=== PATIENT | male | born 1940 | race Caucasian/White ===

== ENCOUNTER 2018-02-13 14:34 | Inpatient (IN) | payer MEDICARE ==
[~2018-02-13 14:34] MED LIST: ISOVUE-370 76%-LOCM 1 ML ONE
[2018-02-13 15:21] LABS: #Lymphocytes 0.9 thou/uL (1.20-3.40); #Monocytes 0.4 thou/uL (0.11-0.59); #Neutrophils 4.2 thou/uL (1.40-6.50); %Basophils 0.2 % (0.0-1.0); %Eosinophils 0.4 % (0.0-10.0); %Lymphocytes 16.7 % (21.0-51.0); %Monocytes 7.4 % (0.0-10.0); %Neutrophils 75.4 % (42.0-75.0); Hemoglobin 14.3 g/dL (14.0-18.0); Mean Corpuscular HGB CONC 31.8 g/dL (32.0-36.0); Mean Corpuscular Hemoglobin 31.8 pg (27.0-31.0); Mean Platelet Volume 8.7 fL (7.4-10.4); Platelet Count 175 thou/uL (130-400); RBC Distribution Width 12.9 % (11.5-14.5); Red Blood Cell (RBC) Count 4.49 mill/uL (4.70-6.10); White Blood Cell (WBC) Count 5.6 thou/uL (4.8-10.8)
--- NOTE | 2018-02-13 15:27 | RAD ---
CHEST 1 VIEW: Date: 02/13/18 HISTORY: Dyspnea. COMPARISON: 03/28/17. FINDINGS: Cardiac silhouette is magnified and enlarged. Pulmonary vasculature is upper limits of normal. Severe right de la garza convex curvature of the thoracic spine is similar in appearance to prior exams. No lobar consolidation or evidence of pneumothorax. IMPRESSION: Cardiomegaly. Chronic-type findings are stable. POS: [facility]
[2018-02-13 15:33] LABS: Actual Bicarbonate (HCO3a) 29.1 mEq/L (22-28); Analyzer IN Cardio ER; CO2 Tension 45.3 mmHg (35.0-45.0); Calcium, Ionized 1.19 mmol/L (1.12-1.30); Carboxyhemoglobin (COHb) 0.8 gm% (0.0-3.0); Hemoglobin (Hb) 14.7 g/dL (14.0-18.0); Potassium - ABG Lab 4.35 mmol/L (3.70-5.30); pH, Arterial 7.43 (7.35-7.45)
[2018-02-13 15:34] LABS: O2 Tension (PaO2) 50.8 mmHg (> 70.0)
[2018-02-13 15:35] LABS: Puncture Site RB
[2018-02-13 15:42] LABS: ALT (SGPT) 30 U/L (8-55); AST (SGOT) 36 U/L (5-34); Albumin 3.9 g/dL (3.4-4.8); Alkaline Phosphatase 61 U/L (40-150); Anion Gap 9 mmol/L (10-20); BUN (Urea Nitrogen) 16 mg/dL (8.4-25.7); Bilirubin, Total 0.6 mg/dL (0.2-1.2); Calc. Creatinine Clearance 0 mL/min (70-130); Calcium 9.4 mg/dL (7.8-10.44); Carbon Dioxide 32 mmol/L (23-31); Chloride 102 mmol/L (98-107); Estimated GFR-MDRD Greater than 90; Glucose 115 mg/dL (83-110); Potassium 4.4 mmol/L (3.5-5.1); Protein, Total 5.9 g/dL (5.8-8.1); Sodium 139 mmol/L (136-145)
[2018-02-13 17:00] LABS: Troponin I 0.028 ng/mL (< 0.028)
[2018-02-13 17:05] LABS: CKMB 10.1 ng/mL (0-6.6)
--- NOTE | 2018-02-13 17:13 | CT ---
CTA CHEST: 02/13/2018 HISTORY: Hypoxia. COMPARISON: 02/12/2017 TECHNIQUE: A contrast enhanced CTA chest was performed. FINDINGS: Contrast enhanced CTA chest demonstrates areas of bibasilar atelectasis and some areas of scarring, u nchanged since the previous comparison CTA. There is marked dextroscoliosis seen. No evidence of pl eural or pericardial effusion seen. Marked cardiomegaly is seen. No evidence of filling defects see n in the pulmonary arteries, to suggest pulmonary emboli. Numerous gallstones seen. An exophytic le ft renal cyst is seen. IMPRESSION: 1. Marked cardiomegaly. 2. No evidence of pulmonary emboli seen. POS: [facility]
[2018-02-13] MEDS ORDERED: Furosemide 40 MG/4 ML VIAL ONE (18:30)
[2018-02-13 19:53] LABS: Troponin I 0.033 ng/mL (< 0.028)
[2018-02-13] MEDS ORDERED: methylPREDNISolone Sod Succ/PF 125 MG/2 ML VIAL ONE (21:44)
[2018-02-13 22:00] LABS: Troponin I 0.032 ng/mL (< 0.028)
[2018-02-14] MEDS ORDERED: Morphine 2 MG/ML SYRINGE ONE (01:56)
[2018-02-14] MEDS ORDERED: Morphine 2 MG/ML SYRINGE SLOW IVP SCH (02:00)
[2018-02-14] MEDS ORDERED: LEVAQUIN Pharmacy to Dose 1 EACH IVPB PRN (02:08)
[2018-02-14] MEDS ORDERED: Temazepam 15 MG CAP PO PRN (02:27)
[2018-02-14] MEDS ORDERED: diphenhydrAMINE 25 MG CAP PO PRN (02:27)
[2018-02-14 06:17] LABS: #Lymphocytes 0.4 thou/uL (1.20-3.40); #Monocytes 0.1 thou/uL (0.11-0.59); #Neutrophils 2.3 thou/uL (1.40-6.50); %Basophils 0.8 % (0.0-1.0); %Eosinophils 0.2 % (0.0-10.0); %Lymphocytes 15.1 % (21.0-51.0); %Monocytes 2.5 % (0.0-10.0); %Neutrophils 81.4 % (42.0-75.0); Hemoglobin 13.7 g/dL (14.0-18.0); Mean Corpuscular HGB CONC 30.6 g/dL (32.0-36.0); Mean Corpuscular Hemoglobin 30.6 pg (27.0-31.0); Mean Corpuscular Volume 99.9 fL (78.0-98.0); Platelet Count 168 thou/uL (130-400); Red Blood Cell (RBC) Count 4.47 mill/uL (4.70-6.10); White Blood Cell (WBC) Count 2.9 thou/uL (4.8-10.8)
[2018-02-14 06:31] LABS: ALT (SGPT) 26 U/L (8-55); AST (SGOT) 25 U/L (5-34); Albumin 3.6 g/dL (3.4-4.8); Alkaline Phosphatase 56 U/L (40-150); Anion Gap 11 mmol/L (10-20); BUN (Urea Nitrogen) 16 mg/dL (8.4-25.7); Bilirubin, Total 0.7 mg/dL (0.2-1.2); Calc. Creatinine Clearance 90 mL/min (70-130); Carbon Dioxide 30 mmol/L (23-31); Chloride 103 mmol/L (98-107); Estimated GFR-MDRD Greater than 90; Globulin 1.8 g/dL (2.4-3.5); Glucose 138 mg/dL (83-110); Potassium 4.1 mmol/L (3.5-5.1); Protein, Total 5.4 g/dL (5.8-8.1); Sodium 140 mmol/L (136-145)
[2018-02-14] MEDS: Albuterol Sulfate 2.5 mg/3 ml Neb NEB SCH ×3 (07:00→18:28)
[2018-02-14] MEDS: Mometasone/Formoterol 120 PUFF INHALER INH SCH ×2 (07:02→18:26)
[2018-02-14] MEDS: Loratadine 10 MG TAB PO SCH (08:18)
[2018-02-14] MEDS: Aspirin 81 mg Enteric Coated Tablet PO SCH (08:18)
[2018-02-14] MEDS: Atorvastatin Calcium 20 MG TAB PO SCH (08:18)
[2018-02-14] MEDS ORDERED: Non-Formulary Item 1 EACH (Fluticasone/Vilanterol [Breo Ellipta] 1 INH) IH SCH (09:00)
[2018-02-14] MEDS ORDERED: Acetaminophen 325 MG TAB PO PRN (10:35)
[2018-02-14] MEDS ORDERED: Ondansetron ODT 4 MG TAB PO PRN (10:35)
[2018-02-14] MEDS ORDERED: Ondansetron PF 4 MG/2 ML Vial IVP PRN (10:35)
--- NOTE | 2018-02-14 11:21 | HP ---
CHIEF COMPLAINT: Shortness of breath. HISTORY OF PRESENT ILLNESS: This is a 77-year-old male with past medical history of asthma, COPD, CVA, and scoliosis, presenting with shortness of breath , which has been ongoing for months. Per the patient, he has always have shortness of breath out of it now. Shortness of breath has worsened. He has been having associated symptoms of cough with some productive sputum. Patient denies that he is having any fever, chills, palpitations, dizziness, abdominal pain; however, admits that he has been having some chest discomfort in association with the shortness of breath. Patient states that he is not able to ambulate far without having shortness of breath. Per records, patient had polio as a child and patient has O2 at home. It is also important to note that patient states that he is very compliant with his medications. REVIEW OF SYSTEMS: Positive for shortness of breath, productive sputum with blood, otherwise as documented in HPI. All other systems were reviewed and are negative. FAMILY HISTORY: Family history reviewed and noncontributory. PAST MEDICAL HISTORY: Scoliosis, polio as a child, asthma, COPD, systolic congestive heart failure. PAST SURGICAL HISTORY: Two hernia repairs, left elbow cyst drainage, right forearm surgery. PSYCHIATRIC HISTORY: No previous psychiatric history. SOCIAL HISTORY: Former tobacco user, smoked cigarettes in the past. Patient states that he quit about 50 years ago. Patient denies any alcohol use and patient denies any illicit drug use. ALLERGIES: Patient is allergic to IBUPROFEN and MOTRIN. CURRENT MEDICATIONS: Patient is on albuterol, Prilosec, Claritin, Ecotrin, furosemide 40 mg, temazepam 15 mg. PHYSICAL EXAMINATION: VITAL SIGNS: Blood pressure is 103/80, pulse of 93, respiratory rate of 24, temperature of 98.2, O2 saturation of 95 on 3 liters. GENERAL: Patient is alert, oriented x3, not in acute distress. Patient is speaking in full sentences. HEENT: Normocephalic, atraumatic. Pupils are equally round and reactive to light. Extraocular movements are intact. No scleral icterus. NECK: Trachea is midline. Full range of motion. LUNGS: Clear to auscultation bilaterally at the anterior lung araujo. Posterior lung araujo had mild crackles. No wheezing appreciated. CARDIOVASCULAR: Positive S1, S2. Regular rate and rhythm. No murmurs, no gallops, no rubs appreciated. ABDOMEN: Soft, nontender, nondistended, no peritoneal signs. EXTREMITIES: Extremities: 5/5 upper extremity strength, good pulses bilaterally. Lower extremities 5/5 lower extremity strength, good pulses bilaterally. NEUROLOGIC: Cranial nerves II through XII grossly intact. SKIN: Warm, dry, and intact. EKG shows normal sinus rhythm, rate of 94 with PACs. Chest x-ray shows cardiomegaly and stable chronic changes. ED COURSE: Patient received Solu-Medrol, Lasix, Levaquin, and DuoNeb treatment. LABORATORY DATA: WBC 5.6, hemoglobin is 14.3, hematocrit is 44.9, platelet count is 175. ABG: pH is 7.4, pCO2 is 45, pO2 is . Sodium is 139, potassium is 4.4, chloride is 102, carbon dioxide of 32, anion gap of 9, BUN 16 , creatinine is 0.82, glucose of 115. AST is 36, ALT is 30. CK-MB is 10.1. BNP is 2192. ASSESSMENT AND PLAN: This is a 77-year-old male being admitted for: 1. shortness of breath likely due to acute on chronic systolic heart failure. At this point, patient has received Lasix, Solu-Medrol. We will continue patient on Solu-Medrol. We will continue DuoNeb treatments. We will continue Lasix. We will consult Cardiology, we will follow up with their recommendations. 1. Atrial fibrillation with rapid ventricular response. Patient is on Cardizem. We will continue this medication. 2. Chronic atrial fibrillation on anticoagulation in the past. At this point, on this visit, we reviewed patient's medication. Patient does not seem to be on any anticoagulation at this time and the reason is not known. We will leave it up to the to investigate why patient is not on his anticoagulation medication. 3. Chronic obstructive pulmonary disease. We will continue patient on his medications. 4. Cor pulmonale. We will continue patient on current management. 5. Obstructive sleep apnea. Patient is on CPAP at home. We will continue to manage the patient closely here at this hospital. At this point, patient does not appear to be in any acute distress. 6. Kyphoscoliosis, currently stable. 7. Gastroesophageal reflux disease. We will continue patient on current medication. 8. Deep venous thrombosis and gastrointestinal prophylaxis. We will do SCDs and we will do PPIs. MTDD
--- NOTE | 2018-02-14 11:56 | PDOC.PN ---
- Subjective Encounter Start Date: 02/14/18 Encounter Start Time: 11:54 Mr. Rosa was seen today in follow-up of Acute respiratory failure. He says he is breathing a little better today as compared to last night. He does admit to a cough productive of clear sputum with some blood tinged. - Objective Resuscitation Status: Resuscitation Status FULL:Full Resuscitation MAR Reviewed: Yes Vital Signs & Weight: Vital Signs (12 hours) Temp Pulse Resp BP BP Pulse Ox 02/14/18 08:00 97 02/14/18 07:54 98.2 F 92 20 121/56 L 97 02/14/18 07:00 89 20 94 L 02/14/18 04:31 98.1 F 100 20 107/58 L 99 02/14/18 00:00 91 121/74 97 Weight Weight 171 lb I&O: 02/13/18 02/14/18 02/15/18 06:59 06:59 06:59 Output Total 475 Balance -475 Result Diagrams: 02/14/18 05:32 02/14/18 05:32 Phys Exam - Physical Examination HEENT: PERRLA Respiratory: wheezing present Poor air movement Cardiovascular: RRR, no significant murmur, no rub Gastrointestinal: soft, non-tender, no distention, positive bowel sounds Musculoskeletal: no edema Dx/Plan (1) COPD exacerbation Code(s): J44.1 - CHRONIC OBSTRUCTIVE PULMONARY DISEASE W (ACUTE) EXACERBATION Status: Acute (2) Acute and chronic respiratory failure with hypoxia Code(s): J96.21 - ACUTE AND CHRONIC RESPIRATORY FAILURE WITH HYPOXIA Status: Acute (3) Chronic systolic congestive heart failure, NYHA class 3 Code(s): I50.22 - CHRONIC SYSTOLIC (CONGESTIVE) HEART FAILURE Status: Acute (4) Cor pulmonale (chronic) Code(s): I27.81 - COR PULMONALE (CHRONIC) Status: Chronic (5) Chronic a-fib Code(s): I48.2 - CHRONIC ATRIAL FIBRILLATION Status: Chronic Comment: on anticoagulation (6) Rheumatoid arthritis Code(s): M06.9 - RHEUMATOID ARTHRITIS, UNSPECIFIED Status: Chronic - Plan * Acute on chronic respiratory failure due to COPD exacerbation- continue Duonebs, and. Antibiotics, and long acting beta agonist inhaled- and supplemental oxygen- PCCM has been consulted * Chronic systolic heart failure- this is clinically compensated * AFIB0 he has intermittent AFIB- likely a result of a flare of the Lung condition- Cardiology has been consulted * Cor Pulmonale- chronic * RA- chronic
[2018-02-14] MEDS: HYDROcodone/Acetaminophen 5/325 mg Tablet PO PRN (12:24)
[2018-02-14] MEDS ORDERED: Furosemide 40 MG/4 ML VIAL SLOW IVP SCH (14:00)
--- NOTE | 2018-02-14 14:36 | CON ---
DATE OF CONSULTATION: 02/14/2018 HISTORY OF PRESENT ILLNESS: Jordy Rosa is a pleasant 77-year-old male with a history of asthma, COPD, and severe kyphoscoliosis. He has had problems with arrhythmias in the past and a monitor that was placed in January 2016 revealed intermittent atrial fibrillation, short episodes of nonsustained ventricular tachycardia, PVCs, atrial flutter with variable block. He then presented to the emergency room in January 2016, with worsening shortness of breath. He was in atrial flutter with rates of 150-160 per minute. He was given intravenous Cardizem followed by intravenous amiodarone and did not convert. His heart rates only reduced down to the 130s per minute. During that admission, he underwent ablation of the atrial flutter. He was discharged on Eliquis. He then returned approximately 2 weeks later when he was back in atrial flutter and underwent repeat atrial flutter ablation. Since that time, he has not had any recurrence of his faster heart rates and his breathing improved. In July 2016, he was admitted with left elbow MRSA septic arthritis and COPD exacerbation as well as acute on chronic systolic heart failure. That was the last time that he was in the hospital. He was continued to be followed in the office. Eliquis was discontinued in late 2016. He continues with oxygen 24 hours per day at home. He was last seen on January 04, 2018, and appeared to be at his baseline, although he started to have occasional episodes of hemoptysis. He now is admitted with increased shortness of breath. He occasionally had episodes of hemoptysis. He denies any significant chest discomfort. He was in sinus rhythm on admission, although at times he had frequent PVCs and ventricular triplets and couplets. He also has frequent PACs. In the emergency room, CTA of the chest revealed no evidence of pulmonary emboli. There was marked cardiomegaly. In the emergency room, he was given Lasix 40 mg IV, methylprednisolone 40 mg IV, Levaquin 750 IV, and DuoNebs. He states that his breathing has improved. PaO2 in the emergency room was 50. He again denies any significant chest discomfort. Mr. Rosa also states that recently he has been eating at fast food restaurants such as [employer] with salty food. PAST MEDICAL HISTORY: 1. 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 2. Last ejection fraction of 40-45%. 3. History of bradycardia. 4. Hypertension. 5. Obstructive sleep apnea. MEDICATIONS: Albuterol nebs q.6. hours, Ventolin inhaler p.r.n., aspirin 81 daily, Lipitor 20 mg daily, Cartia 120 daily, Benadryl 25 mg q.4 hours p.r.n., Flonase nasal spray 1 spray each side b.i.d., Breo Ellipta one inhalation daily , furosemide 40 daily, Claritin 10 mg daily, omeprazole 20 daily, natural laxative daily, and temazepam 15 mg at bedtime. ALLERGIES: IBUPROFEN. OPERATIONS: Hernia repair, left elbow drainage with MRSA, right forearm surgery , radiofrequency ablation of atrial flutter x2. SOCIAL HISTORY: He smoked in the past but does not currently. He quit about 50 years ago. He denies any alcohol use. FAMILY HISTORY: Negative for coronary artery disease. REVIEW OF SYSTEMS: Twelve-point review of systems is otherwise unremarkable. PHYSICAL EXAMINATION: VITAL SIGNS: 117/74, pulse of 95. HEENT: PERRL. NECK: Supple. CHEST: Fairly clear. CARDIAC: S1, S2 normal, without any S3, S4, or murmurs. ABDOMEN: Normal bowel sounds without tenderness. EXTREMITIES: Reveal 1+ pretibial and posterior calf edema. NEUROLOGIC: Grossly intact. MUSCULOSKELETAL: Severe kyphoscoliosis of the thoracic vertebrae. LABORATORY DATA: Hemoglobin 13.7, hematocrit 44.7, white count 2900, platelets 168,000. D-dimer 0.95. PH 7.43, pCO2 of 45.3, pO2 of 50.8. Sodium 140, potassium 4.1, chloride 103, carbon dioxide 30, BUN 16, creatinine 0.78. Cardiac enzymes; troponin I 0.033. MB 10.1. TSH is low. IMPRESSION: 1. Probable combined systolic and diastolic heart failure, A lot of this certainly may be due to salt indiscretions. 2. Status post flutter ablation x2. 3. Continued runs of nonsustained ventricular tachycardia and PVCs, couplets and triplets. 4. Last ejection fraction of 40-45%. 5. History of bradycardia. 6. Chronic obstructive pulmonary disease. 7. History of asthma. 8. Severe kyphoscoliosis. 9. Hypertension. 10. Obstructive sleep apnea. 11. 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 PLAN: Echocardiogram will be performed to reassess left ventricular function. The patient will continue to be diuresed. We did discuss the need to totally eliminate salt from his diet. JOSEFA
--- NOTE | 2018-02-14 21:32 | CON ---
DATE OF CONSULTATION: 02/14/2018 HISTORY OF PRESENT ILLNESS: Moe is a pleasant gentleman I have known for many years. 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 He has severe scoliosis. He has a component of asthma, but a lot of his shortness of breath issues are related to his inability to exercise and his chest wall abnormalities (thoracic cage abnormalities). He is on oxygen at home. He has a portable oxygen concentrator. I believe he just went out and bought. He has a history of a mild reduction in his systolic function, but does have elevated pulmonary artery pressures. He is on CPAP at home, but set at 11 cm of water pressure. He said he has had progressive shortness of breath for the last few weeks, just could not take anymore and came to the hospital. PAST MEDICAL HISTORY: Remarkable for, 1. Postpolio syndrome. 2. History of tobacco use, none in 40 years. 3. Sleep apnea. 4. History of cerebrovascular accident. 5. History of herniorrhaphy. 6. History of elbow surgery after a fall. 7. History of multiple falls in the last few years. 8. History of cardiac catheterization. 9. History of nonsteroidal intolerance. FAMILY HISTORY: Negative for lung disease. SOCIAL HISTORY: He is a . His 's name was Morena, she past several years back with end-stage renal disease. He is a nonsmoker, nondrinker, does not use drugs. REVIEW OF SYSTEMS: Ten point review of systems completed, otherwise negative. PHYSICAL EXAMINATION: GENERAL: Moe is a pleasant gentleman I have known for many years. VITAL SIGNS: He is afebrile, heart rate 95, respiratory rate 18, oximetry is 98 on 2 liters, blood pressure 117/74. HEENT: Pupils are equal. EYES: Sclerae is anicteric and severe kyphoscoliosis. LUNGS: Remarkable for crackles at both lung bases. HEART: Regular rhythm. S1 and S2 are normal. ABDOMEN: Soft and nontender. EXTREMITIES: Without clubbing, cyanosis, or edema. Chest Xray showed no alveolar infiltrates suggestive of pulmonary edema. LABORATORY DATA: White count 3.9, hemoglobin 13.7, platelets 168. Sodium 140, potassium 4.1, chloride 103, bicarbonate 30, BUN 16, creatinine 0.7. pH 7.43, CO2 of 45, pO2 of 50. IMPRESSION: Dyspnea that is clinically improved. Some of this dyspnea may have been related to some heart failure issues, but his chest CT is fairly unimpressive as well as his exam. His asthma may be contributing. He is clinically improved. An echocardiogram is pending as is a Cardiology consult. This is a 50-minute consult, with greater than 50% of the time was spent on the unit coordinating care. JOSEFA
[2018-02-15] MEDS: Albuterol Sulfate 2.5 mg/3 ml Neb NEB SCH ×2 (00:10→07:12)
[2018-02-15 06:20] LABS: Anion Gap 9 mmol/L (10-20); BUN (Urea Nitrogen) 20 mg/dL (8.4-25.7); Calc. Creatinine Clearance 87 mL/min (70-130); Carbon Dioxide 32 mmol/L (23-31); Chloride 103 mmol/L (98-107); Estimated GFR-MDRD Greater than 90; Glucose 131 mg/dL (83-110); Potassium 4.2 mmol/L (3.5-5.1); Sodium 140 mmol/L (136-145)
[2018-02-15 06:41] LABS: T4 6.3 ug/dL (4.87-11.72)
[2018-02-15] MEDS: Mometasone/Formoterol 120 PUFF INHALER INH SCH ×2 (07:14→18:34)
[2018-02-15] MEDS: Aspirin 81 mg Enteric Coated Tablet PO SCH (08:15)
[2018-02-15] MEDS: Atorvastatin Calcium 20 MG TAB PO SCH (08:15)
[2018-02-15] MEDS: Enoxaparin Sodium 40 MG/0.4 ML SYRINGE SC SCH (08:16)
[2018-02-15] MEDS: Loratadine 10 MG TAB PO SCH (08:16)
[2018-02-15] MEDS: Furosemide 40 MG/4 ML VIAL SLOW IVP SCH (08:16)
[2018-02-15] MEDS: guaiFENesin ER 600 MG TAB PO SCH ×2 (09:43→20:13)
--- NOTE | 2018-02-15 09:46 | PDOC.PN ---
- Subjective Encounter Start Date: 02/15/18 Encounter Start Time: 09:44 Mr. Rosa was seen today in follow-up. He notes some trouble breathing this morning. He denies any chest pain. - Objective Resuscitation Status: Resuscitation Status FULL:Full Resuscitation MAR Reviewed: Yes Vital Signs & Weight: Vital Signs (12 hours) Temp Pulse Resp BP BP Pulse Ox 02/15/18 07:46 97.5 F L 78 20 102/52 L 94 L 02/15/18 07:12 75 18 95 02/15/18 04:00 98.4 F 72 18 109/58 L 93 L 02/15/18 00:10 72 18 93 L Weight Weight 170 lb I&O: 02/14/18 02/15/18 02/16/18 06:59 06:59 06:59 Intake Total 720 Output Total 475 500 Balance -475 220 Result Diagrams: 02/14/18 05:32 02/15/18 05:43 Additional Labs: Accuchecks 02/14/18 11:21 POC Glucose 141 H Phys Exam - Physical Examination Respiratory: no wheezing, no rhonchi + occasional rales, otherwise clear Cardiovascular: RRR, no significant murmur, no rub + occsional PVC Gastrointestinal: soft, non-tender, no distention, positive bowel sounds Musculoskeletal: no edema Dx/Plan (1) COPD exacerbation Code(s): J44.1 - CHRONIC OBSTRUCTIVE PULMONARY DISEASE W (ACUTE) EXACERBATION Status: Acute (2) Acute and chronic respiratory failure with hypoxia Code(s): J96.21 - ACUTE AND CHRONIC RESPIRATORY FAILURE WITH HYPOXIA Status: Acute (3) Chronic systolic congestive heart failure, NYHA class 3 Code(s): I50.22 - CHRONIC SYSTOLIC (CONGESTIVE) HEART FAILURE Status: Acute (4) Cor pulmonale (chronic) Code(s): I27.81 - COR PULMONALE (CHRONIC) Status: Chronic (5) Chronic a-fib Code(s): I48.2 - CHRONIC ATRIAL FIBRILLATION Status: Chronic Comment: on anticoagulation (6) Rheumatoid arthritis Code(s): M06.9 - RHEUMATOID ARTHRITIS, UNSPECIFIED Status: Chronic (7) Kyphoscoliosis Code(s): M41.9 - SCOLIOSIS, UNSPECIFIED Status: Chronic - Plan * COPD exacerbation- resolving, continue steroids, duonebs, and Levaquin * Acute on chronic systolic heart failure- improved- continue IV Lasix, and monitor electrolytes * AFIB- this is intermittent- He is currently in sinus * Cor-Pulmonale- chronic * RA- stable.
--- NOTE | 2018-02-15 15:45 | PRG ---
DATE OF SERVICE: 02/15/2018 SUBJECTIVE: He said he felt a little congested this morning. He asked for nebulizer treatment, and he had just completed when I walked into the room. He said he is already starting to feel a little b it better. OBJECTIVE: VITAL SIGNS: He is afebrile, heart rate is in the 70s, respiratory rate is in the teens, oximetry is 95 on 2 liters, blood pressure 102/52. LUNGS: Clear. HEART: Regular rhythm. ABDOMEN: Soft. IMPRESSION: Symptoms this morning are probably secondary to mucus plugging with his thoracic cage ab normalities and his asthma. I have added Medrol and guaifenesin and switched the albuterol to ipratr opium and albuterol. He will continue to follow with the other physicians caring for him. He does h ave left ventricular systolic dysfunction, but I feel that is less of an issue than his weakness, dec onditioning, and asthma brought on by his postpolio syndrome.
[2018-02-16 06:01] LABS: Anion Gap 9 mmol/L (10-20); BUN (Urea Nitrogen) 20 mg/dL (8.4-25.7); Calc. Creatinine Clearance 87 mL/min (70-130); Calcium 8.9 mg/dL (7.8-10.44); Carbon Dioxide 34 mmol/L (23-31); Chloride 102 mmol/L (98-107); Estimated GFR-MDRD Greater than 90; Glucose 140 mg/dL (83-110); Potassium 4.3 mmol/L (3.5-5.1); Sodium 141 mmol/L (136-145)
[2018-02-16] MEDS: Mometasone/Formoterol 120 PUFF INHALER INH SCH ×2 (06:39→18:50)
[2018-02-16] MEDS: Furosemide 40 MG/4 ML VIAL SLOW IVP SCH (09:14)
[2018-02-16] MEDS: guaiFENesin ER 600 MG TAB PO SCH ×2 (09:14→20:01)
[2018-02-16] MEDS: Aspirin 81 mg Enteric Coated Tablet PO SCH (09:14)
[2018-02-16] MEDS: Atorvastatin Calcium 20 MG TAB PO SCH (09:15)
[2018-02-16] MEDS: Enoxaparin Sodium 40 MG/0.4 ML SYRINGE SC SCH (09:15)
[2018-02-16] MEDS: Loratadine 10 MG TAB PO SCH (09:15)
[2018-02-16] MEDS: Senokot 8.6 MG TAB PO PRN (09:22)
--- NOTE | 2018-02-16 10:21 | PDOC.PN ---
- Subjective Encounter Start Date: 02/16/18 Encounter Start Time: 10:18 Mr. Rosa was seen today in follow-up of Asthma/COPD exacerbation. He says he was breathing ok, until just a few minutes ago. He began having some trouble with dyspnea. - Objective Resuscitation Status: Resuscitation Status FULL:Full Resuscitation MAR Reviewed: Yes Vital Signs & Weight: Vital Signs (12 hours) Temp Pulse Resp BP BP BP Pulse Ox 02/16/18 09:14 109 H 158/63 H 02/16/18 08:59 98.1 F 109 H 22 H 158/63 H 92 L 02/16/18 08:37 95 02/16/18 06:39 93 20 89 L 02/16/18 06:28 89 L 02/16/18 06:24 93 20 83 L 02/16/18 04:00 97.8 F 95 20 110/67 100 02/16/18 02:50 70 16 95 02/15/18 22:29 72 16 94 L Weight Weight 166 lb 6.4 oz I&O: 02/15/18 02/16/18 02/17/18 06:59 06:59 06:59 Intake Total 720 1160 Output Total 500 1575 Balance 220 -415 Result Diagrams: 02/14/18 05:32 02/16/18 05:09 Phys Exam - Physical Examination HEENT: PERRLA Respiratory: wheezing present, clear to auscultation bilateral + mild expiratory wheeze bilaterally, few scattered rales at the bases Cardiovascular: RRR, no significant murmur, no rub Gastrointestinal: soft, non-tender, no distention, positive bowel sounds Musculoskeletal: no edema Neurological: non-focal, moves all 4 limbs Dx/Plan (1) COPD exacerbation Code(s): J44.1 - CHRONIC OBSTRUCTIVE PULMONARY DISEASE W (ACUTE) EXACERBATION Status: Acute (2) Acute and chronic respiratory failure with hypoxia Code(s): J96.21 - ACUTE AND CHRONIC RESPIRATORY FAILURE WITH HYPOXIA Status: Acute (3) Chronic systolic congestive heart failure, NYHA class 3 Code(s): I50.22 - CHRONIC SYSTOLIC (CONGESTIVE) HEART FAILURE Status: Acute (4) Cor pulmonale (chronic) Code(s): I27.81 - COR PULMONALE (CHRONIC) Status: Chronic (5) Chronic a-fib Code(s): I48.2 - CHRONIC ATRIAL FIBRILLATION Status: Chronic Comment: on anticoagulation (6) Rheumatoid arthritis Code(s): M06.9 - RHEUMATOID ARTHRITIS, UNSPECIFIED Status: Chronic (7) Kyphoscoliosis Code(s): M41.9 - SCOLIOSIS, UNSPECIFIED Status: Chronic - Plan * COPD exacerbation- continue duonebs, steroids and Levaquin . Continue Long acting beta- agonist * Acute on chronic systolic heart failure- continue Diureses await Echo results * AFIB- heart rate is variable- continue Diltiazem and recommendations as per Cardiology * CKD- renal function is stable * RA- stable
--- NOTE | 2018-02-16 13:16 | PRG ---
DATE OF SERVICE: 02/16/2018 SUBJECTIVE: Mr. Rosa says he feels a little bit better than yesterday. His family thinks he does as well. OBJECTIVE: VITAL SIGNS: He is afebrile, heart rate is 100, respiratory rate 18-24, on 2 liters per minute his o ximetry is 93-95, blood pressure 104/50. LUNGS: Remarkable for faint wheezes. HEART: Regular rhythm. ABDOMEN: Soft. IMPRESSION: 1. Asthmatic bronchitis. 2. Underlying systolic cardiomyopathy. 3. Postpolio syndrome with severe thoracic scoliosis and kyphosis. PLAN: Continue with current treatments with gradually increase in his activity. He probably would n ot be ready for discharge for a few days. He continues to be monitored for atrial fibrillation and has been followed by Cardiology.
[2018-02-16] MEDS ORDERED: Digoxin 0.5 MG/2 ML AMP SLOW IVP SCH (18:45)
[2018-02-16] MEDS ORDERED: Dofetilide 0.125 MG CAP PO SCH (19:00)
[2018-02-16] MEDS: Dofetilide 0.125 MG CAP PO SCH (20:01)
[2018-02-16] MEDS: Enoxaparin Sodium 80 MG/0.8 ML SYRINGE SC SCH (20:01)
[2018-02-16] MEDS: Digoxin 0.5 MG/2 ML AMP SLOW IVP SCH (23:08)
[2018-02-17] MEDS: Digoxin 0.5 MG/2 ML AMP SLOW IVP SCH ×2 (04:56→09:42)
[2018-02-17 07:02] LABS: Anion Gap 14 mmol/L (10-20); BUN (Urea Nitrogen) 27 mg/dL (8.4-25.7); Calc. Creatinine Clearance 87 mL/min (70-130); Calcium 9.2 mg/dL (7.8-10.44); Carbon Dioxide 29 mmol/L (23-31); Chloride 102 mmol/L (98-107); Estimated GFR-MDRD Greater than 90; Glucose 148 mg/dL (83-110); Potassium 3.9 mmol/L (3.5-5.1); Sodium 141 mmol/L (136-145)
[2018-02-17] MEDS: Mometasone/Formoterol 120 PUFF INHALER INH SCH ×2 (07:19→18:28)
[2018-02-17] MEDS ORDERED: Dofetilide 0.125 MG CAP PO SCH (09:00)
--- NOTE | 2018-02-17 09:06 | CON ---
DATE OF SERVICE: 02/16/2018 ELECTROPHYSIOLOGY CONSULTATION NOTE REFERRING PHYSICIAN: Edmundo Harry M.D. I am seeing Mr. 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 His problems are: 1. Recurrent atrial arrhythmias. A. Prior history of typical atrial flutter, status post cavotricuspid isthmus ablation by Dr. Noah kohler in 02/2016. B. Current admission with multifocal atrial tachycardia and atypical appearing atrial flutter with r apid ventricular rates. 2. Pulmonary disease with advanced COPD and extreme kyphoscoliosis. 3. Chronic anticoagulation with Eliquis due to elevate SIL VASc score. 4. Hypertension, revealed an adequate . ALLERGIES: MOTRIN, IBUPROFEN. MEDICATIONS AT HOME: Include albuterol, furosemide, loratadine, fluticasone, omeprazole, sennosides, temazepam, aspirin, albuterol, diphenhydramine, diltiazem, atorvastatin. SUBJECTIVE: Mr. Rosa is here with progressive dyspnea. He was evaluated by Dr. Harry and Dr. Jessica sarmiento from Cardiology and Pulmonary service. He improved with initiated therapy including diuresis an d this afternoon, though he developed increasing rapid rates and stabilized in an atypical atrial flu tter. He did have mostly multifocal atrial tachycardia with PACs and PVCs on baseline. Currently, still has some dyspnea. His heart rates are in the 150s. He is on diltiazem. No stroke- like symptoms, no neurological deficits, no fever, chills or cough. Rest of 12-point system otherwis e unremarkable. OBJECTIVE DATA: VITAL SIGNS: Blood pressure is currently 114/60 and heart rate 150, respirations 24, temperature 98. 4 degrees Fahrenheit. GENERAL: He is alert and oriented elderly man in no apparent distress. NECK: Supple. Jugular veins difficult to evaluate due to jugular venous distention. CHEST: Coarse without wheezing or crackles, marked kyphoscoliosis is noted. HEART: Heart sounds are regular to rate and rhythm. No murmur or gallop. ABDOMEN: Benign. Bowel sounds positive. EXTREMITIES: Lower extremities without edema, clubbing or cyanosis. DATABASE: The EKGs reviewed initially reveals sinus rhythm with occasional monomorphic PVCs, incompl ete right bundle branch block is seen. Left anterior fascicular block is noted. LABORATORY DATA: White count is 2.9, hemoglobin 13.7, platelet count is 168. Sodium 141, potassium 4.3, BUN is 20, creatinine is 0.78. TSH is 0.25 to 0.26. Follow up EKG also available now reveals a n atypical appearing atrial flutter with 2:1 AV conduction. ASSESSMENT AND PLAN: Mr. Rosa is a pleasant 77-year-old man with a prior history of atrial arrhyth mias. He is here with progressive dyspnea. He developed atrial flutter, which is atypical in appear ance. He also has a mild cardiomyopathy. His BMP is markedly elevated at baseline. My plan would be at this point: 1. Continue heart rate controlling measures as were initiated. Digoxin will be added to the regimen , diltiazem to be increased. 2. He may benefit from rhythm suppression Tikosyn could be contemplated. 3. We will keep him n.p.o. for possible potential cardioversion tomorrow meantime initiate Lovenox a nticoagulation. 4. If these efforts fail to maintain sinus rhythm for him, he may need to be considered for biventri cular pacemaker and AV mansoor ablation. I think he is a poor candidate for left atrial ablation thera py due to his extreme kyphoscoliosis, although that also could be potentially contemplated.
[2018-02-17] MEDS: Furosemide 40 MG/4 ML VIAL SLOW IVP SCH (09:43)
[2018-02-17] MEDS: Aspirin 81 mg Enteric Coated Tablet PO SCH (09:43)
[2018-02-17] MEDS: guaiFENesin ER 600 MG TAB PO SCH ×2 (09:43→21:12)
[2018-02-17] MEDS: Atorvastatin Calcium 20 MG TAB PO SCH (09:43)
[2018-02-17] MEDS: Loratadine 10 MG TAB PO SCH (09:43)
[2018-02-17] MEDS: Enoxaparin Sodium 80 MG/0.8 ML SYRINGE SC SCH ×2 (09:43→21:12)
[2018-02-17] MEDS: Dofetilide 0.125 MG CAP PO SCH ×2 (09:44→21:12)
--- NOTE | 2018-02-17 10:40 | PRG ---
DATE OF SERVICE: 02/17/2018 SUBJECTIVE: He is somewhat anxious this morning because he coughed up some clot material last night. PHYSICAL EXAMINATION: VITAL SIGNS: His temperature is 98.1, pulse 65, blood pressure 115/58, O2 saturation 99% on 2 liters . HEENT: Unremarkable. NECK: No JVD. LUNGS: Distant, but clear breath sounds. CARDIAC: S1 and S2 regular. ABDOMEN: Soft. EXTREMITIES: No edema. LABORATORY DATA: Sodium 141, potassium 3.9, BUN 27, creatinine 0.7, glucose 148. ASSESSMENT: 1. Asthmatic bronchitis. 2. Cardiomyopathy. 3. Post-polio syndrome. PLAN: 1. He probably needs a couple more days of antibiotics. The bleeding may be exacerbated by the fact that he is on high dose Lovenox and he may have to consider withholding that for a while 2. We will continue the steroids.
--- NOTE | 2018-02-17 14:12 | PDOC.PN ---
- Subjective Encounter Start Date: 02/17/18 Encounter Start Time: 10:40 Mr. Rosa was seen today in follow-up of COPD exacerbation and AFIB. He says he is doing a little better today. He is siting up at the side of the bed. He is less dyspneic. - Objective Resuscitation Status: Resuscitation Status FULL:Full Resuscitation MAR Reviewed: Yes Vital Signs & Weight: Vital Signs (12 hours) Temp Pulse Resp BP BP BP Pulse Ox 02/17/18 11:30 60 20 02/17/18 09:43 65 115/58 L 02/17/18 09:42 64 02/17/18 07:44 97.6 F 57 L 20 134/60 93 L 02/17/18 07:19 82 24 H 99 02/17/18 06:57 99 02/17/18 06:56 82 24 H 99 02/17/18 04:56 62 02/17/18 04:21 98.1 F 72 20 100/57 L 91 L 02/17/18 02:35 53 L 20 94 L Weight Weight 167 lb 11.2 oz I&O: 02/16/18 02/17/18 02/18/18 06:59 06:59 06:59 Intake Total 1160 480 500 Output Total 1575 1175 700 Balance -957 -695 -992 Result Diagrams: 02/14/18 05:32 02/17/18 05:35 Phys Exam - Physical Examination HEENT: PERRLA Respiratory: wheezing present + occasional scatterd wheeze, faint. decreased breath sounds at the bases Cardiovascular: RRR, no significant murmur, no rub no gallop Gastrointestinal: soft, non-tender, no distention, positive bowel sounds Musculoskeletal: no edema Dx/Plan (1) COPD exacerbation Code(s): J44.1 - CHRONIC OBSTRUCTIVE PULMONARY DISEASE W (ACUTE) EXACERBATION Status: Acute (2) Atrial flutter Code(s): I48.92 - UNSPECIFIED ATRIAL FLUTTER Status: Acute (3) Acute and chronic respiratory failure with hypoxia Code(s): J96.21 - ACUTE AND CHRONIC RESPIRATORY FAILURE WITH HYPOXIA Status: Acute (4) Chronic systolic congestive heart failure, NYHA class 3 Code(s): I50.22 - CHRONIC SYSTOLIC (CONGESTIVE) HEART FAILURE Status: Acute (5) Cor pulmonale (chronic) Code(s): I27.81 - COR PULMONALE (CHRONIC) Status: Chronic (6) Chronic a-fib Code(s): I48.2 - CHRONIC ATRIAL FIBRILLATION Status: Chronic Comment: on anticoagulation (7) Rheumatoid arthritis Code(s): M06.9 - RHEUMATOID ARTHRITIS, UNSPECIFIED Status: Chronic (8) Kyphoscoliosis Code(s): M41.9 - SCOLIOSIS, UNSPECIFIED Status: Chronic - Plan * COPD- improving with treatment * Atrial Flutter- he has been evaluated by EP, and started on Dofetilide. Will need to monitor him on this medication a few days prior to discharge * Acute on chronic systolic heart failure- still awaiting Echo- continue IV LAsix * Kyphoscoliosis, and Cor Pulmonale- are stable- complicate his respiratory status * Ambulate as tolerated .
[2018-02-18 06:51] LABS: Anion Gap 10 mmol/L (10-20); BUN (Urea Nitrogen) 28 mg/dL (8.4-25.7); Calc. Creatinine Clearance 96 mL/min (70-130); Calcium 8.8 mg/dL (7.8-10.44); Carbon Dioxide 34 mmol/L (23-31); Chloride 100 mmol/L (98-107); Estimated GFR-MDRD Greater than 90; Glucose 137 mg/dL (83-110); Potassium 3.6 mmol/L (3.5-5.1); Sodium 140 mmol/L (136-145)
[2018-02-18] MEDS: Mometasone/Formoterol 120 PUFF INHALER INH SCH ×2 (07:31→20:40)
[2018-02-18] MEDS: Aspirin 81 mg Enteric Coated Tablet PO SCH (09:05)
[2018-02-18] MEDS: Atorvastatin Calcium 20 MG TAB PO SCH (09:05)
[2018-02-18] MEDS: guaiFENesin ER 600 MG TAB PO SCH ×2 (09:06→20:50)
[2018-02-18] MEDS: Enoxaparin Sodium 80 MG/0.8 ML SYRINGE SC SCH ×2 (09:06→20:52)
[2018-02-18] MEDS: Loratadine 10 MG TAB PO SCH (09:06)
[2018-02-18] MEDS: Dofetilide 0.125 MG CAP PO SCH ×2 (09:06→20:50)
[2018-02-18] MEDS: Furosemide 40 MG/4 ML VIAL SLOW IVP SCH (09:07)
--- NOTE | 2018-02-18 11:23 | PRG ---
DATE OF SERVICE: 02/18/2018 SUBJECTIVE: He is doing somewhat better, but he does not believe he is completely over current issue s and he does not feel like he is stable for hospital discharge. PHYSICAL EXAMINATION: VITAL SIGNS: On exam, temperature is 98.8, pulse 71, respirations 20, O2 sat 92% liters, blood press ure 129/71. HEENT: Unremarkable. NECK: No JVD. LUNGS: Clear, but distant breath sounds. CARDIAC: S1 and S2, regular. ABDOMEN: Soft. EXTREMITIES: No edema. LABORATORY DATA: Sodium 140, potassium 3.6, chloride 100, CO2 of 34, BUN 28, creatinine 0.7, glucose 137. Echo demonstrated decreased EF to 30%-35% with moderate mitral regurgitation. ASSESSMENT: 1. Postpolio syndrome. 2. Asthmatic bronchitis. 3. Cardiomyopathy. 4. Mitral regurgitation. PLAN: Again, you may need to reconsider the idea of fully therapeutic anticoagulation. I think I ca n go ahead and convert him over to oral steroids. He is currently off antibiotics. He needs to incr ease his level of activity.
--- NOTE | 2018-02-18 15:25 | PDOC.PN ---
- Subjective Encounter Start Date: 02/18/18 Encounter Start Time: 15:24 Subjective: nsg notes rev, yemi ovn, no new c/o, no bm since 02/13 otherwise at this -: moment, breathing is ok - Objective Resuscitation Status: Resuscitation Status FULL:Full Resuscitation Vital Signs & Weight: Vital Signs (12 hours) Temp Pulse Pulse Pulse Resp BP BP 02/18/18 14:36 88 24 H 02/18/18 13:06 87 115 H 126/87 108/65 02/18/18 12:30 98.3 F 74 20 02/18/18 11:16 80 24 H 02/18/18 08:52 98.8 F 71 20 02/18/18 07:31 75 20 02/18/18 07:17 02/18/18 07:14 75 20 02/18/18 04:00 97.9 F 74 20 BP BP Pulse Ox Pulse Ox Pulse Ox 02/18/18 14:36 02/18/18 13:06 99 99 02/18/18 12:30 129/71 91 L 02/18/18 11:16 02/18/18 08:52 129/71 92 L 02/18/18 07:31 96 02/18/18 07:17 96 02/18/18 07:14 96 02/18/18 04:00 99/55 L 94 L Weight Weight 164 lb 6.4 oz I&O: 02/17/18 02/18/18 02/19/18 06:59 06:59 06:59 Intake Total 480 1230 Output Total 1175 1725 Balance -695 -495 Result Diagrams: 02/14/18 05:32 02/18/18 05:05 Phys Exam - Physical Examination Constitutional: NAD seated on the edge of the bed HEENT: PERRLA, moist MMs, sclera anicteric Neck: no nodes, no JVD Respiratory: no wheezing, no rales, no rhonchi, clear to auscultation bilateral Cardiovascular: RRR, no significant murmur, no rub Gastrointestinal: soft, positive bowel sounds Psychiatric: normal affect, A&O x 3 Dx/Plan - Plan Dx/Plan (1) COPD exacerbation Code(s): J44.1 - CHRONIC OBSTRUCTIVE PULMONARY DISEASE W (ACUTE) EXACERBATION Status: Acute apprec pulm c/s transition to oral regimen (2) Atrial flutter Code(s): I48.92 - UNSPECIFIED ATRIAL FLUTTER Status: Acute currently on dofetilide apprec cardiology c/s apprec EP c/s a/c with enoxaparin currrently for secondary prevention prev on eliquis - too expensive is at an increased fall risk (3) Acute and chronic respiratory failure with hypoxia Code(s): J96.21 - ACUTE AND CHRONIC RESPIRATORY FAILURE WITH HYPOXIA Status: Acute (4) Chronic systolic congestive heart failure, NYHA class 3 Code(s): I50.22 - CHRONIC SYSTOLIC (CONGESTIVE) HEART FAILURE Status: Acute (5) Cor pulmonale (chronic) Code(s): I27.81 - COR PULMONALE (CHRONIC) Status: Chronic (6) Chronic a-fib Code(s): I48.2 - CHRONIC ATRIAL FIBRILLATION Status: Chronic Comment: on anticoagulation (7) Rheumatoid arthritis Code(s): M06.9 - RHEUMATOID ARTHRITIS, UNSPECIFIED Status: Chronic (8) Kyphoscoliosis Code(s): M41.9 - SCOLIOSIS, UNSPECIFIED Status: Chronic constipation despite stool softeners laxative may need an enema if laxative fails - Plan d/w pt at bedside greater than 30 minutes spent discussing potential plan of care Review of Systems - Medications/Allergies Allergies/Adverse Reactions: Allergies Allergy/AdvReac Type Severity Reaction Status Date / Time ibuprofen [From Motrin] Allergy Verified 08/13/16 22:40 Medications: Current Medications Acetaminophen (Tylenol) 650 mg PO Q4H PRN PRN Reason: Headache/Fever/Mild Pain (1-3) Hydrocodone Bitart/Acetaminophen ([place] 5/325) 1 tab PO Q4H PRN PRN Reason: Moderate to Severe Pain (6-10) Last Admin: 02/14/18 12:24 Dose: 1 tab Albuterol/Ipratropium (Duoneb) 3 ml NEB Q6LD-CT [facility] Last Admin: 02/18/18 14:36 Dose: 3 ml Aspirin (Ecotrin) 81 mg PO DAILY [facility] Last Admin: 02/18/18 09:05 Dose: 81 mg Atorvastatin Calcium (Lipitor) 20 mg PO DAILY [facility] Last Admin: 02/18/18 09:05 Dose: 20 mg Diltiazem HCl (Cardizem Cd) 120 mg PO DAILY [facility] Last Admin: 02/18/18 09:06 Dose: 120 mg Diphenhydramine HCl (Benadryl) 25 mg PO Q4H PRN PRN Reason: Itching Last Admin: 02/17/18 21:16 Dose: 25 mg Dofetilide (Tikosyn) 0.5 mg PO BID [facility] Last Admin: 02/18/18 09:06 Dose: 0.5 mg Enoxaparin Sodium (Lovenox) 80 mg SC 0900,2100 [facility] Last Admin: 02/18/18 09:06 Dose: 80 mg Furosemide (Lasix) 40 mg SLOW IVP DAILY [facility] Last Admin: 02/18/18 09:07 Dose: 40 mg Guaifenesin (Mucinex) 1,200 mg PO Q12HR [facility] Last Admin: 02/18/18 09:06 Dose: 1,200 mg Loratadine (Claritin) 10 mg PO DAILY [facility] Last Admin: 02/18/18 09:06 Dose: 10 mg Miscellaneous Medication (Pharmacy To Dose) 0 each IVPB PRN PRN PRN Reason: [facility] Pharmacy to Dose Mometasone Furoate/Formoterol Fumar (Dulera 100 Mcg/5 Mcg Inhaler) 2 puff INH BID-RT [facility] Last Admin: 02/18/18 07:31 Dose: 2 puff Polyethylene Glycol (Miralax) 17 gm PO DAILYPRN PRN PRN Reason: Constipation Prednisone (Prednisone) 20 mg PO BID-WM [facility] Senna (Senokot) 2 tab PO DAILYPRN PRN PRN Reason: Constipation Last Admin: 02/16/18 09:22 Dose: 2 tab Sodium Chloride (Flush - Normal Saline) 10 ml IVF Q12HR [facility] Last Admin: 02/18/18 09:07 Dose: 10 ml Sodium Chloride (Flush - Normal Saline) 10 ml IVF PRN PRN PRN Reason: Saline Flush Last Admin: 02/17/18 17:55 Dose: 10 ml
[2018-02-18] MEDS: predniSONE 20 MG TAB PO SCH (17:22)
[2018-02-19] MEDS: HYDROcodone/Acetaminophen 5/325 mg Tablet PO PRN (02:45)
[2018-02-19] MEDS: Polyethylene Glycol 3350 17 GM Packet PO PRN ×2 (03:04→17:16)
[2018-02-19 05:39] LABS: Anion Gap 10 mmol/L (10-20); BUN (Urea Nitrogen) 32 mg/dL (8.4-25.7); Calc. Creatinine Clearance 89 mL/min (70-130); Carbon Dioxide 34 mmol/L (23-31); Chloride 99 mmol/L (98-107); Estimated GFR-MDRD Greater than 90; Glucose 149 mg/dL (83-110); Potassium 3.8 mmol/L (3.5-5.1); Sodium 139 mmol/L (136-145)
[2018-02-19] MEDS: Mometasone/Formoterol 120 PUFF INHALER INH SCH ×2 (07:41→20:08)
[2018-02-19] MEDS: guaiFENesin ER 600 MG TAB PO SCH ×2 (08:54→20:37)
[2018-02-19] MEDS: predniSONE 20 MG TAB PO SCH ×2 (08:54→17:16)
[2018-02-19] MEDS: Atorvastatin Calcium 20 MG TAB PO SCH (08:54)
[2018-02-19] MEDS: Aspirin 81 mg Enteric Coated Tablet PO SCH (08:54)
[2018-02-19] MEDS: Enoxaparin Sodium 80 MG/0.8 ML SYRINGE SC SCH ×2 (08:55→20:37)
[2018-02-19] MEDS: Loratadine 10 MG TAB PO SCH (08:55)
[2018-02-19] MEDS: Furosemide 40 MG/4 ML VIAL SLOW IVP SCH (08:55)
[2018-02-19] MEDS: Dofetilide 0.125 MG CAP PO SCH ×2 (08:58→20:37)
--- NOTE | 2018-02-19 13:29 | PRG ---
DATE OF SERVICE: 02/13/2018 SUBJECTIVE: The patient is doing well and has no complaints. He has no more hemoptysis. OBJECTIVE: VITAL SIGNS: Temperature 97.9, pulse 89, respirations 18, O2 sat 91% on room air, blood pressure 120 /60. HEENT: Unremarkable. NECK: No JVD. LUNGS: Fairly clear. CARDIAC: S1, S2 irregular. ABDOMEN: Soft. EXTREMITIES: No edema. LABORATORY DATA: Sodium 139, potassium 3.8, BUN 32, creatinine 0.7, glucose 149. ASSESSMENT: 1. Postpolio syndrome. 2. Asthmatic bronchitis, which is stable. 3. Cardiomyopathy 4. Mitral regurgitation. PLAN: Continue breathing treatments as needed. Increase activity as tolerated. Hopefully home soon .
--- NOTE | 2018-02-19 15:24 | PDOC.PN ---
- Subjective Encounter Start Date: 02/19/18 Encounter Start Time: 15:21 Subjective: nsg notes rev, yemi ovn, no new c/o, had miralax x2, still constipated - Objective Resuscitation Status: Resuscitation Status FULL:Full Resuscitation Vital Signs & Weight: Vital Signs (12 hours) Temp Pulse Pulse Pulse Resp BP BP 02/19/18 15:05 68 20 02/19/18 13:05 113 H 109 H 146/83 H 131/76 02/19/18 12:33 97.9 F 89 18 02/19/18 11:21 68 20 02/19/18 07:54 97.8 F 86 20 02/19/18 07:41 90 20 02/19/18 06:46 02/19/18 06:43 90 20 02/19/18 03:25 98.0 F 85 24 H BP BP BP Pulse Ox Pulse Ox Pulse Ox 02/19/18 15:05 02/19/18 13:05 97 93 L 02/19/18 12:33 128/60 91 L 02/19/18 11:21 02/19/18 07:54 130/58 L 92 L 02/19/18 07:41 96 02/19/18 06:46 96 02/19/18 06:43 96 02/19/18 03:25 116/58 L 96 Weight Weight 166 lb 4.8 oz I&O: 02/18/18 02/19/18 02/20/18 06:59 06:59 06:59 Intake Total 1230 980 Output Total 1725 1175 Balance -495 -195 Result Diagrams: 02/14/18 05:32 02/19/18 05:01 Additional Labs: Accuchecks 02/19/18 02/18/18 06:02 20:52 POC Glucose 150 H 141 H Dx/Plan - Plan - Physical Examination Constitutional: NAD seated on the edge of the bed HEENT: PERRLA, moist MMs, sclera anicteric Neck: no nodes, no JVD Respiratory: no wheezing, no rales, no rhonchi, clear to auscultation bilateral , significant kyphosis noted Cardiovascular: RRR, no significant murmur, no rub Gastrointestinal: soft, positive bowel sounds Psychiatric: normal affect, A&O x 3 Dx/Plan (1) COPD exacerbation Code(s): J44.1 - CHRONIC OBSTRUCTIVE PULMONARY DISEASE W (ACUTE) EXACERBATION Status: Acute apprec pulm c/s transition to oral regimen also has anatomical restriction due to severe kyphosis stemming from a childhood episode of polio (2) Atrial flutter Code(s): I48.92 - UNSPECIFIED ATRIAL FLUTTER Status: Acute currently on dofetilide apprec cardiology c/s apprec EP c/s a/c with enoxaparin currrently for secondary prevention prev on eliquis - too expensive is at an increased fall risk (3) Acute and chronic respiratory failure with hypoxia Code(s): J96.21 - ACUTE AND CHRONIC RESPIRATORY FAILURE WITH HYPOXIA Status: Acute, improving (4) Chronic systolic congestive heart failure, NYHA class 3 Code(s): I50.22 - CHRONIC SYSTOLIC (CONGESTIVE) HEART FAILURE Status: Acute, improving (5) Cor pulmonale (chronic) Code(s): I27.81 - COR PULMONALE (CHRONIC) Status: Chronic (6) Chronic a-fib Code(s): I48.2 - CHRONIC ATRIAL FIBRILLATION see discussion regarding anticoagulation (7) Rheumatoid arthritis Code(s): M06.9 - RHEUMATOID ARTHRITIS, UNSPECIFIED Status: Chronic (8) Kyphoscoliosis Code(s): M41.9 - SCOLIOSIS, UNSPECIFIED Status: Chronic constipation - currently on day 6 despite stool softeners laxative may need an enema if laxative fails d/w pt at bedside Review of Systems - Medications/Allergies Allergies/Adverse Reactions: Allergies Allergy/AdvReac Type Severity Reaction Status Date / Time ibuprofen [From Motrin] Allergy Verified 08/13/16 22:40 Medications: Current Medications Acetaminophen (Tylenol) 650 mg PO Q4H PRN PRN Reason: Headache/Fever/Mild Pain (1-3) Hydrocodone Bitart/Acetaminophen ([place] 5/325) 1 tab PO Q4H PRN PRN Reason: Moderate to Severe Pain (6-10) Last Admin: 02/19/18 02:45 Dose: 1 tab Albuterol/Ipratropium (Duoneb) 3 ml NEB [id number] Last Admin: 02/19/18 15:05 Dose: 3 ml Aspirin (Ecotrin) 81 mg PO DAILY [facility] Last Admin: 02/19/18 08:54 Dose: 81 mg Atorvastatin Calcium (Lipitor) 20 mg PO DAILY [facility] Last Admin: 02/19/18 08:54 Dose: 20 mg Diltiazem HCl (Cardizem Cd) 120 mg PO DAILY [facility] Last Admin: 02/19/18 08:54 Dose: 120 mg Diphenhydramine HCl (Benadryl) 25 mg PO Q4H PRN PRN Reason: Itching Last Admin: 02/17/18 21:16 Dose: 25 mg Dofetilide (Tikosyn) 0.5 mg PO BID [facility] Last Admin: 02/19/18 08:58 Dose: 0.5 mg Enoxaparin Sodium (Lovenox) 80 mg SC 0900,2100 [facility] Last Admin: 02/19/18 08:55 Dose: 80 mg Furosemide (Lasix) 40 mg SLOW IVP DAILY [facility] Last Admin: 02/19/18 08:55 Dose: 40 mg Guaifenesin (Mucinex) 1,200 mg PO Q12HR [facility] Last Admin: 02/19/18 08:54 Dose: 1,200 mg Loratadine (Claritin) 10 mg PO DAILY [facility] Last Admin: 02/19/18 08:55 Dose: 10 mg Miscellaneous Medication (Pharmacy To Dose) 0 each IVPB PRN PRN PRN Reason: [facility] Pharmacy to Dose Mometasone Furoate/Formoterol Fumar (Dulera 100 Mcg/5 Mcg Inhaler) 2 puff INH BID-RT [facility] Last Admin: 02/19/18 07:41 Dose: 2 puff Polyethylene Glycol (Miralax) 17 gm PO DAILYPRN PRN PRN Reason: Constipation Last Admin: 02/19/18 03:04 Dose: 17 gm Prednisone (Prednisone) 20 mg PO BID-WM [facility] Last Admin: 02/19/18 08:54 Dose: 20 mg Senna (Senokot) 2 tab PO DAILYPRN PRN PRN Reason: Constipation Last Admin: 02/16/18 09:22 Dose: 2 tab Sodium Chloride (Flush - Normal Saline) 10 ml IVF Q12HR [facility] Last Admin: 02/19/18 08:55 Dose: 10 ml Sodium Chloride (Flush - Normal Saline) 10 ml IVF PRN PRN PRN Reason: Saline Flush Last Admin: 02/17/18 17:55 Dose: 10 ml
[2018-02-20 06:20] LABS: Anion Gap 10 mmol/L (10-20); BUN (Urea Nitrogen) 29 mg/dL (8.4-25.7); Calc. Creatinine Clearance 95 mL/min (70-130); Calcium 8.5 mg/dL (7.8-10.44); Carbon Dioxide 36 mmol/L (23-31); Chloride 96 mmol/L (98-107); Estimated GFR-MDRD Greater than 90; Glucose 112 mg/dL (83-110); Potassium 3.9 mmol/L (3.5-5.1); Sodium 138 mmol/L (136-145)
[2018-02-20] MEDS: Mometasone/Formoterol 120 PUFF INHALER INH SCH ×2 (06:53→19:58)
[2018-02-20] MEDS: Enoxaparin Sodium 80 MG/0.8 ML SYRINGE SC SCH ×2 (08:12→21:36)
[2018-02-20] MEDS: Furosemide 40 MG/4 ML VIAL SLOW IVP SCH (08:12)
[2018-02-20] MEDS: Dofetilide 0.125 MG CAP PO SCH ×2 (08:13→21:32)
[2018-02-20] MEDS: Loratadine 10 MG TAB PO SCH (08:13)
[2018-02-20] MEDS: Aspirin 81 mg Enteric Coated Tablet PO SCH (08:13)
[2018-02-20] MEDS: predniSONE 20 MG TAB PO SCH ×2 (08:13→16:31)
[2018-02-20] MEDS: Atorvastatin Calcium 20 MG TAB PO SCH (08:13)
[2018-02-20] MEDS: guaiFENesin ER 600 MG TAB PO SCH ×2 (08:13→20:25)
--- NOTE | 2018-02-20 11:43 | PRG ---
DATE OF SERVICE: 02/20/2018 SUBJECTIVE: Mr. Rosa is doing fair. He is breathing is somewhat improved. He has no dizziness or loss of consciousness. His palpitations are also somewhat better. His Tikosyn dose was decreased over the weekend. Hence increased QT episode. OBJECTIVE DATA: VITAL SIGNS: Blood pressure is 126/66, heart rate 76, respiration 18, temperature 97.7 degrees Fahrenheit. GENERAL: He is alert and oriented man in no apparent distress. NECK: Supple. Jugular veins not distended. CHEST: Coarse, severe kyphosis. No crackles. CARDIOVASCULAR: Heart sounds are regular with occasional ectopy. No murmur or gallop. ABDOMEN: Benign. Bowel sounds positive. EXTREMITIES: Lower extremities without edema, clubbing or cyanosis. LABORATORY DATA: Electrolytes in normal range. BUN is 29, creatinine 0.72. Telemetry strips reveals sinus rhythm with frequent PVCs, 7-8 wide complex run was also seen could represent aberrantly conducted multifocal atrial arrhythmia versus VT. ASSESSMENT AND PLAN: 1. Paroxysmal atrial flutter, currently in sinus rhythm/MAT on Tikosyn. 2. Tikosyn loading decreased on the weekend, monitor QT on repeated EKGs. 3. Frequent premature ventricular contractions, nonsustained VT run versus premature ventricular contractions with aberration. Continue beta maureen therapy. 4. History of cardiomyopathy with worsened left ventricular ejection fraction. Dr. Harry plans to recheck echo again, hence the last echo was shortly after his rapid atrial rates. 5. Severe kyphosis. 6. History of hemoptysis, might be limited candidate for long-term anticoagulation. 7. Congestive heart failure, systolic/diastolic on diuretics IV, continues to diurese. I discussed the issues regarding the reduced LVEF and need for further monitoring. Dr. Harry again is planning a repeat echocardiogram. If LVEF decreased, consideration for ICD implantation could be made, although it is a difficult proposition with his extreme kyphosis and thoracic abnormality. JOSEFA
[2018-02-20] MEDS: HYDROcodone/Acetaminophen 5/325 mg Tablet PO PRN ×3 (11:55→21:31)
[2018-02-20] MEDS ORDERED: Iopamidol 370 76% 50 ML VIAL FS ONE (12:05)
[2018-02-20] MEDS ORDERED: Iopamidol 370 76% 100 ML VIAL ONE (12:05)
--- NOTE | 2018-02-20 14:55 | EKG ---
Test Reason : Blood Pressure : / mmHG Vent. Rate : 106 BPM Atrial Rate : 106 BPM P-R Int : 150 ms QRS Dur : 100 ms QT Int : 390 ms P-R-T Axes : 083 -84 090 degrees QTc Int : 518 ms Normal sinus rhythm with frequent Premature ectopic complexes Left axis deviation Incomplete right bundle branch block Abnormal ECG Confirmed by KURT MORRIS ([id number]) on 02/20/2018 2:54:45 PM Referred By: Confirmed By:KURT MORRIS
--- NOTE | 2018-02-20 15:06 | EKG ---
Test Reason : POST TIKOSYN Blood Pressure : / mmHG Vent. Rate : 106 BPM Atrial Rate : 106 BPM P-R Int : 150 ms QRS Dur : 106 ms QT Int : 370 ms P-R-T Axes : 078 -49 102 degrees QTc Int : 491 ms Normal sinus rhythm with frequent Premature ventricular and fusion complexes Left axis deviation Abnormal ECG Confirmed by KURT MORRIS ([id number]) on 02/20/2018 3:05:45 PM Referred By: BHARATH Confirmed By:KURT MORRIS
--- NOTE | 2018-02-20 20:27 | CT ---
ABDOMEN CT WITH CONTRAST: PELVIS CT WITH CONTRAST: HISTORY: COPD. Asthma. CVA. Severe scoliosis. Worsening dyspnea. Cough. Possible recurrent inguinal jax ia. COMPARISON: None. FINDINGS: ABDOMEN: There is severe scoliotic curvature of the visualized thoracic and lumbar spine. Multileve l vacuum disk phenomenon is noted. This limits evaluation. There is a small right-sided pleural eff usion. There is opacification of both lower lobes, likely due to atelectasis or pneumonia. Findings are similar to the previous examination. The heart continues to be enlarged. The visualized aorta is ectatic. No aneurysm, dissection, or periaortic fat stranding. Symmetric attenuation of the psoa s muscles. Hypodensities in the liver are similar to the previous CT angiogram of the chest. The spleen, pancre as, and adrenal glands are unremarkable. CT evidence of cholelithiasis without evidence of cholecystitis. No gastrohepatic, retrocrural, or periportal lymphadenopathy. No mesenteric mass, lymphadenopathy, free air, or free fluid. The gastric mucosa, the duodenum, and multiple normal caliber small bowel loops are noted. The ileoc ecal junction is normal. Normal caliber appendix. Scattered fecal material in a nondistended, nondi lated colon. Diverticulosis without evidence of diverticulitis. PELVIS: The urinary bladder is unremarkable. There is asymmetric increased attenuation along the ri ght inguinal region, extending in a cephalad direction to involve the anterior right abdominal rectus muscle. Subtle areas of hyperdensity are noted, which may represent extravasating contrast of an ac tively bleeding intramuscular hematoma. There is evidence of stranding and likely blood extending in to the right inguinal region and anterior to the right aspect of the urinary bladder (extraperitoneal in location). There is no evidence of a fracture involving the bony pelvis or bony thorax. There is no evidence of a left or right inguinal hernia. IMPRESSION: 1. No evidence of left or right inguinal hernia. 2. Increased soft tissue density with hyperdensities centrally, suggesting an actively extravasating hematoma that is centered in the anterior abdominal rectus muscle, to the right of midline. There i s evidence of blood products tracking into the anterior-inferior right extraperitoneal space and juanjo g the right inguinal region. The results of the study were discussed with Dr Randall physician exhibitions and collections manager on 02/20/2018 at 8:06 p.m. CODE CR POS: [id number]
[2018-02-20 20:40] LABS: Hemoglobin 15.3 g/dL (14.0-18.0)
--- NOTE | 2018-02-20 23:25 | PDOC.PN ---
- Subjective Encounter Start Date: 02/20/18 Encounter Start Time: 16:00 Subjective: nsg notes rev, pt c/o sudden onset of R groin pain "where I had a hernia -: repair with mesh in the past" that has never occurred before -: rpts very small "smear" like BM - Objective Resuscitation Status: Resuscitation Status FULL:Full Resuscitation Vital Signs & Weight: Vital Signs (12 hours) Temp Pulse Resp BP Pulse Ox 02/20/18 22:40 86 18 95 02/20/18 19:58 84 18 94 L 02/20/18 19:57 84 18 94 L 02/20/18 19:55 98.7 F 56 L 18 137/83 99 02/20/18 16:29 98 F 82 18 119/64 93 L 02/20/18 14:23 55 L 20 93 L 02/20/18 11:52 98.1 F 78 18 114/58 L 94 L Weight Weight 165 lb 11.2 oz I&O: 02/19/18 02/20/18 02/21/18 06:59 06:59 06:59 Intake Total 980 1470 1060 Output Total 2087 895 2203 Balance -195 670 -515 Result Diagrams: 02/21/18 05:23 02/23/18 04:50 Dx/Plan - Plan Constitutional: NAD seated on the edge of the bed HEENT: PERRLA, moist MMs, sclera anicteric Neck: no nodes, no JVD Respiratory: no wheezing, no rales, no rhonchi, clear to auscultation bilateral , significant kyphosis noted Cardiovascular: RRR, no significant murmur, no rub Gastrointestinal: soft, positive bowel sounds, tenderness to palpation in middle 1/3 of R sided inguinal canal/ groin crease but none elsewhere. no skin discoloration Psychiatric: normal affect, A&O x 3 Dx/Plan (1) COPD exacerbation Code(s): J44.1 - CHRONIC OBSTRUCTIVE PULMONARY DISEASE W (ACUTE) EXACERBATION Status: Acute apprec pulm c/s transition to oral regimen also has anatomical restriction due to severe kyphosis stemming from a childhood episode of polio (2) Atrial flutter Code(s): I48.92 - UNSPECIFIED ATRIAL FLUTTER Status: Acute currently on dofetilide apprec cardiology c/s apprec EP c/s a/c with enoxaparin currrently for secondary prevention prev on eliquis - too expensive is at an increased fall risk (3) Acute and chronic respiratory failure with hypoxia Code(s): J96.21 - ACUTE AND CHRONIC RESPIRATORY FAILURE WITH HYPOXIA Status: Acute, improving (4) Chronic systolic congestive heart failure, NYHA class 3 Code(s): I50.22 - CHRONIC SYSTOLIC (CONGESTIVE) HEART FAILURE Status: Acute, improving (5) Cor pulmonale (chronic) Code(s): I27.81 - COR PULMONALE (CHRONIC) Status: Chronic (6) Chronic a-fib Code(s): I48.2 - CHRONIC ATRIAL FIBRILLATION see discussion regarding anticoagulation (7) Rheumatoid arthritis Code(s): M06.9 - RHEUMATOID ARTHRITIS, UNSPECIFIED Status: Chronic (8) Kyphoscoliosis Code(s): M41.9 - SCOLIOSIS, UNSPECIFIED Status: Chronic constipation - currently on day 6 despite stool softeners laxative may need an enema if laxative fails sudden onset RLQ inguinal pain - CT abd to eval for recurrent inguinal herniation d/w pt at bedside Review of Systems - Medications/Allergies Allergies/Adverse Reactions: Allergies Allergy/AdvReac Type Severity Reaction Status Date / Time ibuprofen [From Motrin] Allergy Verified 08/13/16 22:40 Medications: Current Medications Acetaminophen (Tylenol) 650 mg PO Q4H PRN PRN Reason: Headache/Fever/Mild Pain (1-3) Last Admin: 02/19/18 23:13 Dose: 650 mg Hydrocodone Bitart/Acetaminophen ([place] 5/325) 1 tab PO Q4H PRN PRN Reason: Moderate to Severe Pain (6-10) Last Admin: 02/22/18 20:11 Dose: 1 tab Albuterol/Ipratropium (Duoneb) 3 ml NEB [id number] [facility] Last Admin: 02/23/18 07:52 Dose: 3 ml Aspirin (Ecotrin) 81 mg PO DAILY [facility] Last Admin: 02/22/18 09:06 Dose: Not Given Atorvastatin Calcium (Lipitor) 20 mg PO DAILY [facility] Last Admin: 02/22/18 09:06 Dose: Not Given Carvedilol (Coreg) 1.5625 mg PO BID-[facility] Last Admin: 02/22/18 18:08 Dose: 1.5625 mg Diphenhydramine HCl (Benadryl) 25 mg PO Q4H PRN PRN Reason: Itching Last Admin: 02/17/18 21:16 Dose: 25 mg Dofetilide (Tikosyn) 0.25 mg PO BID [facility] Last Admin: 02/22/18 20:04 Dose: 0.25 mg Furosemide (Lasix) 40 mg SLOW IVP DAILY [facility] Last Admin: 02/22/18 09:06 Dose: Not Given Guaifenesin (Mucinex) 1,200 mg PO Q12HR [facility] Last Admin: 02/22/18 20:05 Dose: 1,200 mg Lisinopril (Zestril) 2.5 mg PO DAILY [facility] Loratadine (Claritin) 10 mg PO DAILY [facility] Last Admin: 02/22/18 09:07 Dose: Not Given Miscellaneous Medication (Pharmacy To Dose) 0 each IVPB PRN PRN PRN Reason: [facility] Pharmacy to Dose Mometasone Furoate/Formoterol Fumar (Dulera 100 Mcg/5 Mcg Inhaler) 2 puff INH BID-RT [facility] Last Admin: 02/23/18 07:47 Dose: 2 puff Polyethylene Glycol (Miralax) 17 gm PO DAILYPRN [facility] Last Admin: 02/21/18 21:13 Dose: 17 gm Prednisone (Prednisone) 20 mg PO BID-WM [facility] Last Admin: 02/22/18 16:28 Dose: 20 mg Senna (Senokot) 2 tab PO DAILYPRN PRN PRN Reason: Constipation Last Admin: 02/22/18 20:04 Dose: 2 tab Sodium Chloride (Flush - Normal Saline) 10 ml IVF Q12HR [facility] Last Admin: 02/22/18 20:05 Dose: 10 ml Sodium Chloride (Flush - Normal Saline) 10 ml IVF PRN PRN PRN Reason: Saline Flush Last Admin: 02/17/18 17:55 Dose: 10 ml
[2018-02-21 06:26] LABS: Anion Gap 12 mmol/L (10-20); BUN (Urea Nitrogen) 27 mg/dL (8.4-25.7); Calc. Creatinine Clearance 105 mL/min (70-130); Calcium 8.6 mg/dL (7.8-10.44); Carbon Dioxide 34 mmol/L (23-31); Chloride 93 mmol/L (98-107); Estimated GFR-MDRD Greater than 90; Glucose 119 mg/dL (83-110); Potassium 4.5 mmol/L (3.5-5.1); Sodium 134 mmol/L (136-145)
[2018-02-21 06:33] LABS: #Lymphocytes 0.8 thou/uL (1.20-3.40); #Monocytes 1.3 thou/uL (0.11-0.59); #Neutrophils 7.9 thou/uL (1.40-6.50); %Basophils 0.3 % (0.0-1.0); %Eosinophils 0.3 % (0.0-10.0); %Lymphocytes 8.2 % (21.0-51.0); %Monocytes 12.8 % (0.0-10.0); %Neutrophils 78.4 % (42.0-75.0); Mean Corpuscular HGB CONC 31.1 g/dL (32.0-36.0); Mean Corpuscular Hemoglobin 30.6 pg (27.0-31.0); Mean Corpuscular Volume 98.6 fL (78.0-98.0); Mean Platelet Volume 8.8 fL (7.4-10.4); Platelet Count 189 thou/uL (130-400); RBC Distribution Width 12.8 % (11.5-14.5); Red Blood Cell (RBC) Count 4.58 mill/uL (4.70-6.10)
[2018-02-21] MEDS: Mometasone/Formoterol 120 PUFF INHALER INH SCH ×2 (06:41→19:07)
--- NOTE | 2018-02-21 07:45 | PRG ---
DATE OF SERVICE: 02/21/2018 He is complaining of very little in the way of bowel movement since he has been here so his MiraLax w ill be given routinely. We will continue to follow.
--- NOTE | 2018-02-21 07:52 | PRG ---
DATE OF SERVICE: 02/21/2018 SUBJECTIVE: Mr. Rosa is afebrile. He says he is feeling less congested this morning. His morning s have been the worst time for him since he has been in the hospital. OBJECTIVE: VITAL SIGNS: Oximetry is 91 on 2 liters. LUNGS: Clear. HEART: Regular rhythm. ABDOMEN: Soft. LABORATORY DATA: White count is 10, hemoglobin 14, platelets 189. Sodium 134, potassium 4.5, chlori de 93, bicarbonate 34, BUN 27, creatinine 0.65. IMPRESSION: 1. Asthmatic bronchitis. 2. Post-polio syndrome with severe kyphoscoliosis. 3. Systolic cardiomyopathy, ejection fraction on echocardiogram yesterday was 30%-35%. Apparently, the cardiologists now are contemplating placement of a defibrillator. He had an abdomen CT done yesterday suggestive of a rectus bleed. With this finding, his Lovenox nee ds to be held. I will be happy to follow with the other physicians caring for him.
[2018-02-21] MEDS: Dofetilide 0.125 MG CAP PO SCH ×2 (08:16→21:12)
[2018-02-21] MEDS: Loratadine 10 MG TAB PO SCH (08:16)
[2018-02-21] MEDS: guaiFENesin ER 600 MG TAB PO SCH ×2 (08:16→21:12)
[2018-02-21] MEDS: Aspirin 81 mg Enteric Coated Tablet PO SCH (08:16)
[2018-02-21] MEDS: Atorvastatin Calcium 20 MG TAB PO SCH (08:16)
[2018-02-21] MEDS: predniSONE 20 MG TAB PO SCH ×2 (08:16→16:37)
[2018-02-21] MEDS: Furosemide 40 MG/4 ML VIAL SLOW IVP SCH (08:17)
[2018-02-21] MEDS: Polyethylene Glycol 3350 17 GM Packet PO SCH ×2 (08:17→21:13)
--- NOTE | 2018-02-21 12:50 | PDOC.CTH ---
Cardiology Progress Note - Subjective EP Progress Note: Patient seen and evaluated. No new cardiac concerns or complaints. c/o RLQ abd pain which is relieved by manual pressure. - heart racing, palpitations, chest pain, passing out, or dizziness. - Objective Vital Signs Temp Pulse Resp BP BP Pulse Ox 02/21/18 11:00 98.5 F 84 18 122/61 94 L 02/21/18 10:06 83 16 96 02/21/18 07:15 97.9 F 98 17 139/61 94 L 02/21/18 06:44 83 18 91 L 02/21/18 06:41 81 16 91 L 02/21/18 04:00 98.0 F 93 18 117/64 94 L 02/21/18 02:44 85 18 94 L Weight 167 lb 02/20/18 02/21/18 02/22/18 06:59 06:59 06:59 Intake Total 1470 1310 Output Total 800 2225 Balance 670 -915 - Physical Examination General/Neuro: alert & oriented x3, NAD Neck: carotid US brisk, no JVD present Lungs: CTA, unlabored respirations Heart: PMI normal Abdomen: NT/ND, soft - Telemetry Telemetry Rhythm: SR with PVC - Labs Result Diagrams: 02/21/18 05:23 02/21/18 05:23 Troponin/CKMB CK-MB (CK-2) 10.1 ng/mL (0-6.6) H* 02/13/18 15:11 Troponin I 0.032 ng/mL (< 0.028) H 02/13/18 21:30 - Assessment/Plan 1. Paroxysmal atrial arrhythmias -now in SR, being loaded on Tikosyn. Borderline QTc prolongation over weekend prompting dose reduction. Will continue to monitor with 12 lead EKGs 2. Frequent PVC 3. Non sustained wide complex tachycardia, NSVT vs AF with abberrancy 4. Chronic cardiomyopathy -NPO after MN for dual chamber ICD implant tomorrow at 0730 with anesthesia 5. Severe kyphosis 6. Congestive systolic/diastolic heart failure, per cardiology -better compensated today
--- NOTE | 2018-02-21 23:29 | PDOC.PN ---
- Subjective Encounter Start Date: 02/21/18 Encounter Start Time: 14:00 Subjective: nsg notes rev, pt no new c/o, inguinal pain on R is somewhat improved -: no further abdominal discomfort - Objective Resuscitation Status: Resuscitation Status FULL:Full Resuscitation Vital Signs & Weight: Vital Signs (12 hours) Temp Pulse Resp BP Pulse Ox 02/21/18 22:58 99 16 95 02/21/18 20:20 98.1 F 87 20 117/58 L 94 L 02/21/18 19:06 65 18 92 L 02/21/18 15:25 97.6 F 67 15 107/53 L 94 L 02/21/18 13:51 72 16 93 L Weight Weight 167 lb I&O: 02/20/18 02/21/18 02/22/18 06:59 06:59 06:59 Intake Total 1470 1310 580 Output Total 800 2225 700 Balance 670 -915 -120 Result Diagrams: 02/21/18 05:23 02/23/18 04:50 Dx/Plan - Plan Constitutional: NAD seated on the edge of the bed HEENT: PERRLA, moist MMs, sclera anicteric Neck: no nodes, no JVD Respiratory: no wheezing, no rales, no rhonchi, clear to auscultation bilateral , significant kyphosis noted Cardiovascular: RRR, no significant murmur, no rub Gastrointestinal: soft, positive bowel sounds, tenderness to palpation in middle 1/3 of R sided inguinal canal/ groin crease but none elsewhere. no skin discoloration- subjectively less tender c/w yesterday Psychiatric: normal affect, A&O x 3 Dx/Plan (1) COPD exacerbation Code(s): J44.1 - CHRONIC OBSTRUCTIVE PULMONARY DISEASE W (ACUTE) EXACERBATION Status: Acute apprec pulm c/s transition to oral regimen also has anatomical restriction due to severe kyphosis stemming from a childhood episode of polio (2) Atrial flutter Code(s): I48.92 - UNSPECIFIED ATRIAL FLUTTER Status: Acute currently on dofetilide apprec cardiology c/s apprec EP c/s d/c enoxaparin 2/2 rectus sheath hematoma is at an increased fall risk (3) Acute and chronic respiratory failure with hypoxia Code(s): J96.21 - ACUTE AND CHRONIC RESPIRATORY FAILURE WITH HYPOXIA Status: Acute, improving (4) Chronic systolic congestive heart failure, NYHA class 3 Code(s): I50.22 - CHRONIC SYSTOLIC (CONGESTIVE) HEART FAILURE Status: Acute, improving (5) Cor pulmonale (chronic) Code(s): I27.81 - COR PULMONALE (CHRONIC) Status: Chronic (6) Chronic a-fib Code(s): I48.2 - CHRONIC ATRIAL FIBRILLATION see discussion regarding anticoagulation (7) Rheumatoid arthritis Code(s): M06.9 - RHEUMATOID ARTHRITIS, UNSPECIFIED Status: Chronic (8) Kyphoscoliosis Code(s): M41.9 - SCOLIOSIS, UNSPECIFIED Status: Chronic constipation despite stool softeners laxative may need an enema if laxative fails rectus sheath hematoma d/c eliquis supportive mgmt - serial CBC appears to be improving d/w pt at bedside Review of Systems - Medications/Allergies Allergies/Adverse Reactions: Allergies Allergy/AdvReac Type Severity Reaction Status Date / Time ibuprofen [From Motrin] Allergy Verified 08/13/16 22:40 Medications: Current Medications Acetaminophen (Tylenol) 650 mg PO Q4H PRN PRN Reason: Headache/Fever/Mild Pain (1-3) Last Admin: 02/19/18 23:13 Dose: 650 mg Hydrocodone Bitart/Acetaminophen ([place] 5/325) 1 tab PO Q4H PRN PRN Reason: Moderate to Severe Pain (6-10) Last Admin: 02/20/18 21:31 Dose: 1 tab Albuterol/Ipratropium (Duoneb) 3 ml NEB [id number] [facility] Last Admin: 02/21/18 22:58 Dose: 3 ml Aspirin (Ecotrin) 81 mg PO DAILY [facility] Last Admin: 02/21/18 08:16 Dose: 81 mg Atorvastatin Calcium (Lipitor) 20 mg PO DAILY [facility] Last Admin: 02/21/18 08:16 Dose: 20 mg Diltiazem HCl (Cardizem Cd) 120 mg PO DAILY [facility] Last Admin: 02/21/18 08:16 Dose: 120 mg Diphenhydramine HCl (Benadryl) 25 mg PO Q4H PRN PRN Reason: Itching Last Admin: 02/17/18 21:16 Dose: 25 mg Dofetilide (Tikosyn) 0.25 mg PO BID [facility] Last Admin: 02/21/18 21:12 Dose: 0.25 mg Furosemide (Lasix) 40 mg SLOW IVP DAILY [facility] Last Admin: 02/21/18 08:17 Dose: 40 mg Guaifenesin (Mucinex) 1,200 mg PO Q12HR [facility] Last Admin: 02/21/18 21:12 Dose: 1,200 mg Loratadine (Claritin) 10 mg PO DAILY [facility] Last Admin: 02/21/18 08:16 Dose: 10 mg Miscellaneous Medication (Pharmacy To Dose) 0 each IVPB PRN PRN PRN Reason: [facility]EV[facility] Pharmacy to Dose Mometasone Furoate/Formoterol Fumar (Dulera 100 Mcg/5 Mcg Inhaler) 2 puff INH BID-RT [facility] Last Admin: 02/21/18 19:07 Dose: 2 puff Polyethylene Glycol (Miralax) 17 gm PO DAILYPRN [facility] Last Admin: 02/21/18 21:13 Dose: 17 gm Prednisone (Prednisone) 20 mg PO BID-WM [facility] Last Admin: 02/21/18 16:37 Dose: 20 mg Senna (Senokot) 2 tab PO DAILYPRN PRN PRN Reason: Constipation Last Admin: 02/16/18 09:22 Dose: 2 tab Sodium Chloride (Flush - Normal Saline) 10 ml IVF Q12HR [facility] Last Admin: 02/21/18 21:13 Dose: 10 ml Sodium Chloride (Flush - Normal Saline) 10 ml IVF PRN PRN PRN Reason: Saline Flush Last Admin: 02/17/18 17:55 Dose: 10 ml
[2018-02-22 06:17] LABS: Anion Gap 10 mmol/L (10-20); BUN (Urea Nitrogen) 26 mg/dL (8.4-25.7); Calc. Creatinine Clearance 104 mL/min (70-130); Calcium 8.5 mg/dL (7.8-10.44); Carbon Dioxide 36 mmol/L (23-31); Chloride 91 mmol/L (98-107); Estimated GFR-MDRD Greater than 90; Glucose 100 mg/dL (83-110); Potassium 4.4 mmol/L (3.5-5.1); Sodium 133 mmol/L (136-145)
[2018-02-22] MEDS ORDERED: CEFAZOLIN 2 GM/50 ML BAG ONE (06:54)
[2018-02-22] MEDS ORDERED: Lidocaine 1% (PF) 30 ML VIAL ONE (06:54)
[2018-02-22] MEDS: Mometasone/Formoterol 120 PUFF INHALER INH SCH ×2 (07:24→19:32)
[2018-02-22] MEDS ORDERED: Ketamine 50 MG/ML VIAL ONE (07:43)
[2018-02-22] MEDS ORDERED: Midazolam HCl 2 mg/2 ml Vial ONE (07:43)
[2018-02-22] MEDS: predniSONE 20 MG TAB PO SCH ×2 (08:52→16:28)
[2018-02-22] MEDS: Aspirin 81 mg Enteric Coated Tablet PO SCH (09:06)
[2018-02-22] MEDS: Dofetilide 0.125 MG CAP PO SCH ×2 (09:06→20:04)
[2018-02-22] MEDS: Furosemide 40 MG/4 ML VIAL SLOW IVP SCH (09:06)
[2018-02-22] MEDS: Atorvastatin Calcium 20 MG TAB PO SCH (09:06)
[2018-02-22] MEDS: guaiFENesin ER 600 MG TAB PO SCH ×2 (09:06→20:05)
[2018-02-22] MEDS: Loratadine 10 MG TAB PO SCH (09:07)
--- NOTE | 2018-02-22 10:20 | EKG ---
Test Reason : PREOP Blood Pressure : / mmHG Vent. Rate : 105 BPM Atrial Rate : 105 BPM P-R Int : 156 ms QRS Dur : 102 ms QT Int : 376 ms P-R-T Axes : 079 -60 110 degrees QTc Int : 496 ms Normal sinus rhythm with frequent Premature atrial complexes with premature ventricular or aberrantly conducted complexes Left axis deviation Prolonged QT T wave abnormality, consider lateral ischemia Abnormal ECG Confirmed by KURT MORRIS ([id number]) on 02/22/2018 10:19:44 AM Referred By: BHARATH Confirmed By:KURT MORRIS
--- NOTE | 2018-02-22 11:30 | RAD ---
SINGLE VIEW OF THE CHEST: Comparison: 02-13-18 History: Shortness of breath, chest pain. FINDINGS: Single view of the chest shows an enlarged cardiomediastinal silhouette. There is a pacemaker with it s leads in the right atrium and ventricle. There is curvature of the spine limiting evaluation. There is no evidence of consolidation, mass or pleural effusion. No pneumothorax is seen. IMPRESSION: 1. Cardiomegaly. 2. Pacemaker with its lead in the right atrium of the ventricle. POS: NIKKI
[2018-02-22] MEDS: Senokot 8.6 MG TAB PO PRN ×2 (12:18→20:04)
[2018-02-22] MEDS ORDERED: CEFAZOLIN 1 GM VIAL SLOW IVP SCH (14:00)
--- NOTE | 2018-02-22 14:57 | PDOC.PN ---
- Subjective Encounter Start Date: 02/22/18 Encounter Start Time: 11:00 Subjective: nsg notes rev, yemi ovn, no new c/o, but still has not had a BM -: tolerated procedure, seen post operatively no chest wall discomfort - Objective Resuscitation Status: Resuscitation Status FULL:Full Resuscitation Vital Signs & Weight: Vital Signs (12 hours) Temp Pulse Resp BP BP Pulse Ox 02/22/18 14:52 98.3 F 92 18 112/58 L 93 L 02/22/18 14:17 88 16 94 L 02/22/18 11:32 97.9 F 89 18 116/56 L 93 L 02/22/18 09:06 73 02/22/18 03:15 98.3 F 73 14 101/59 L 100 Weight Admit Weight 171 lb Weight 163 lb I&O: 02/21/18 02/22/18 02/23/18 06:59 06:59 06:59 Intake Total 1310 1090 0 Output Total 2225 1150 200 Balance -915 -60 -200 Result Diagrams: 02/21/18 05:23 02/23/18 04:50 Dx/Plan - Plan Constitutional: NAD seated on the edge of the bed HEENT: PERRLA, moist MMs, sclera anicteric Neck: no nodes, no JVD Respiratory: no wheezing, no rales, no rhonchi, clear to auscultation bilateral , significant kyphosis noted Cardiovascular: RRR, no significant murmur, no rub PPM insertion site c/d/i Gastrointestinal: soft, positive bowel sounds, tenderness to palpation in middle 1/3 of R sided inguinal canal/ groin crease but none elsewhere. no skin discoloration- subjectively less tender c/w yesterday Psychiatric: normal affect, A&O x 3 Dx/Plan (1) COPD exacerbation Code(s): J44.1 - CHRONIC OBSTRUCTIVE PULMONARY DISEASE W (ACUTE) EXACERBATION Status: Acute apprec pulm c/s transition to oral regimen also has anatomical restriction due to severe kyphosis stemming from a childhood episode of polio (2) Atrial flutter Code(s): I48.92 - UNSPECIFIED ATRIAL FLUTTER Status: Acute currently on dofetilide apprec cardiology c/s apprec EP c/s d/c enoxaparin 2/2 rectus sheath hematoma is at an increased fall risk s/p PPM placement - tolerated procedure well (3) Acute and chronic respiratory failure with hypoxia Code(s): J96.21 - ACUTE AND CHRONIC RESPIRATORY FAILURE WITH HYPOXIA Status: Acute, improving (4) Chronic systolic congestive heart failure, NYHA class 3 Code(s): I50.22 - CHRONIC SYSTOLIC (CONGESTIVE) HEART FAILURE Status: Acute, improving (5) Cor pulmonale (chronic) Code(s): I27.81 - COR PULMONALE (CHRONIC) Status: Chronic (6) Chronic a-fib Code(s): I48.2 - CHRONIC ATRIAL FIBRILLATION see discussion regarding anticoagulation (7) Rheumatoid arthritis Code(s): M06.9 - RHEUMATOID ARTHRITIS, UNSPECIFIED Status: Chronic (8) Kyphoscoliosis Code(s): M41.9 - SCOLIOSIS, UNSPECIFIED Status: Chronic constipation despite stool softeners laxative may need an enema if laxative fails rectus sheath hematoma d/c eliquis supportive mgmt - serial CBC appears to be improving d/w pt at bedside Review of Systems - Medications/Allergies Allergies/Adverse Reactions: Allergies Allergy/AdvReac Type Severity Reaction Status Date / Time ibuprofen [From Motrin] Allergy Verified 08/13/16 22:40 Medications: Current Medications Acetaminophen (Tylenol) 650 mg PO Q4H PRN PRN Reason: Headache/Fever/Mild Pain (1-3) Last Admin: 02/19/18 23:13 Dose: 650 mg Hydrocodone Bitart/Acetaminophen ([place] 5/325) 1 tab PO Q4H PRN PRN Reason: Moderate to Severe Pain (6-10) Last Admin: 02/22/18 20:11 Dose: 1 tab Albuterol/Ipratropium (Duoneb) 3 ml NEB [id number] [facility] Last Admin: 02/23/18 07:52 Dose: 3 ml Aspirin (Ecotrin) 81 mg PO DAILY [facility] Last Admin: 02/22/18 09:06 Dose: Not Given Atorvastatin Calcium (Lipitor) 20 mg PO DAILY [facility] Last Admin: 02/22/18 09:06 Dose: Not Given Carvedilol (Coreg) 1.5625 mg PO BID-WM [facility] Last Admin: 02/22/18 18:08 Dose: 1.5625 mg Diphenhydramine HCl (Benadryl) 25 mg PO Q4H PRN PRN Reason: Itching Last Admin: 02/17/18 21:16 Dose: 25 mg Dofetilide (Tikosyn) 0.25 mg PO BID [facility] Last Admin: 02/22/18 20:04 Dose: 0.25 mg Furosemide (Lasix) 40 mg SLOW IVP DAILY [facility] Last Admin: 02/22/18 09:06 Dose: Not Given Guaifenesin (Mucinex) 1,200 mg PO Q12HR [facility] Last Admin: 02/22/18 20:05 Dose: 1,200 mg Lisinopril (Zestril) 2.5 mg PO DAILY [facility] Loratadine (Claritin) 10 mg PO DAILY [facility] Last Admin: 02/22/18 09:07 Dose: Not Given Miscellaneous Medication (Pharmacy To Dose) 0 each IVPB PRN PRN PRN [facility] to Dose Mometasone Furoate/Formoterol Fumar (Dulera 100 Mcg/5 Mcg Inhaler) 2 puff INH BID-RT [facility] Last Admin: 02/23/18 07:47 Dose: 2 puff Polyethylene Glycol (Miralax) 17 gm PO DAILYPRN [facility] Last Admin: 02/21/18 21:13 Dose: 17 gm Prednisone (Prednisone) 20 mg PO BID-WM [facility] Last Admin: 02/22/18 16:28 Dose: 20 mg Senna (Senokot) 2 tab PO DAILYPRN PRN PRN Reason: Constipation Last Admin: 02/22/18 20:04 Dose: 2 tab Sodium Chloride (Flush - Normal Saline) 10 ml IVF Q12HR [facility] Last Admin: 02/22/18 20:05 Dose: 10 ml Sodium Chloride (Flush - Normal Saline) 10 ml IVF PRN PRN PRN Reason: Saline Flush Last Admin: 02/17/18 17:55 Dose: 10 ml
--- NOTE | 2018-02-22 15:46 | EKG ---
Test Reason : Blood Pressure : / mmHG Vent. Rate : 099 BPM Atrial Rate : 099 BPM P-R Int : 154 ms QRS Dur : 104 ms QT Int : 424 ms P-R-T Axes : 072 -47 074 degrees QTc Int : 544 ms Sinus rhythm with frequent Premature ventricular complexes Possible Left atrial enlargement Left axis deviation T wave abnormality, consider anterolateral ischemia Prolonged QT Abnormal ECG Confirmed by KURT MORRIS ([id number]) on 02/22/2018 3:46:28 PM Referred By: SHERRIE Confirmed By:KURT MORRIS
--- NOTE | 2018-02-22 16:15 | PRG ---
DATE OF SERVICE: 02/22/2018 SUBJECTIVE: Mr. Rosa is in no distress. He had his pacemaker defibrillator placed. OBJECTIVE: VITAL SIGNS: He is afebrile, heart rates in the 80s, respiratory rate 16, oximetry is 94 on 2 liters, blood pressure 116/56. LUNGS: Clear. CARDIOVASCULAR: Regular rhythm. ABDOMEN: Soft. IMPRESSION: 1. Status post placement of a defibrillator. Chest radiograph shows no pneumothorax. 2. Asthmatic bronchitis, improved. 3. Postpolio syndrome with thoracic cage abnormalities, clinically stable. PLAN: Continue supportive care. Hopefully, home soon. JOSEFA
[2018-02-22] MEDS: Carvedilol 3.125 MG TAB PO SCH (18:08)
[2018-02-22] MEDS: HYDROcodone/Acetaminophen 5/325 mg Tablet PO PRN (20:11)
[2018-02-23 05:30] VITALS: BMI 25.8
[2018-02-23 06:03] LABS: Anion Gap 11 mmol/L (10-20); BUN (Urea Nitrogen) 19 mg/dL (8.4-25.7); Calc. Creatinine Clearance 103 mL/min (70-130); Calcium 8.5 mg/dL (7.8-10.44); Carbon Dioxide 36 mmol/L (23-31); Chloride 94 mmol/L (98-107); Estimated GFR-MDRD Greater than 90; Glucose 104 mg/dL (83-110); Potassium 4.2 mmol/L (3.5-5.1); Sodium 137 mmol/L (136-145)
[2018-02-23] MEDS: Mometasone/Formoterol 120 PUFF INHALER INH SCH ×2 (07:47→18:59)
[2018-02-23] MEDS: Lisinopril 2.5 MG TAB PO SCH (09:03)
[2018-02-23] MEDS: Furosemide 40 MG/4 ML VIAL SLOW IVP SCH (09:03)
[2018-02-23] MEDS: Atorvastatin Calcium 20 MG TAB PO SCH (09:03)
[2018-02-23] MEDS: Dofetilide 0.125 MG CAP PO SCH ×2 (09:03→21:26)
[2018-02-23] MEDS: guaiFENesin ER 600 MG TAB PO SCH ×2 (09:03→21:26)
[2018-02-23] MEDS: Loratadine 10 MG TAB PO SCH (09:04)
[2018-02-23] MEDS: Carvedilol 3.125 MG TAB PO SCH ×2 (09:04→17:20)
[2018-02-23] MEDS: Aspirin 81 mg Enteric Coated Tablet PO SCH (09:04)
--- NOTE | 2018-02-23 09:10 | PRG ---
DATE OF SERVICE: 02/23/2018 Mr. Rosa did well overnight. He says he is feeling well. PHYSICAL EXAMINATION: VITAL SIGNS: He is afebrile, heart rate 80, respiratory rate 16, oximetry is 95 on 2 liters, blood p ressure 113/64. LUNGS: Clear. HEART: Regular rhythm. ABDOMEN: Soft. IMPRESSION: 1. Asthmatic bronchitis, clinically stable. 2. Status post pacemaker defibrillator placement. I recommended cutting his prednisone back to 20 mg once a day. He can follow up with me 1 day next w [place]. He should stay on 20 mg a day of prednisone until he sees me. In my opinion, he does not need to be discharged on antimicrobial therapy for his asthmatic bronchitis. His treatment in the [facility] should be adequate.
[2018-02-23] MEDS: predniSONE 20 MG TAB PO SCH (09:34)
--- NOTE | 2018-02-23 14:33 | PDOC.CTH ---
Cardiology Progress Note - Subjective EP progress note: Doing well since ICD implant. No cardiac concerns or complaints. Minimal pain at implant site. - Objective Vital Signs Temp Pulse Resp BP BP Pulse Ox 02/23/18 12:20 98.2 F 84 20 111/65 94 L 02/23/18 11:26 87 16 94 L 02/23/18 07:47 80 16 95 02/23/18 07:43 98.1 F 81 20 113/64 95 02/23/18 04:00 97.9 F 97 16 102/58 L 92 L Admit Weight 171 lb Weight 160 lb 3.2 oz 02/22/18 02/23/18 02/24/18 06:59 06:59 06:59 Intake Total 1090 370 Output Total 1150 900 Balance -60 -530 - Physical Examination General/Neuro: alert & oriented x3, NAD Neck: carotid US brisk, no JVD present Lungs: CTA, unlabored respirations Heart: PMI normal, RRR Abdomen: NT/ND, soft - Telemetry Telemetry Rhythm: SR - Labs Result Diagrams: 02/21/18 05:23 02/24/18 05:05 Troponin/CKMB CK-MB (CK-2) 10.1 ng/mL (0-6.6) H* 02/13/18 15:11 Troponin I 0.032 ng/mL (< 0.028) H 02/13/18 21:30 - Assessment/Plan 1. Paroxysmal atrial arrhythmias (MAT, atypical atrial flutter) -now in SR,on Tikosyn. QT ~360 msec and stable on tikosyn 250mg BID. 2. Frequent PVC 3. Non sustained wide complex tachycardia, NSVT vs AF with abberrancy 4. Chronic cardiomyopathy -NPO after MN for dual chamber ICD implant tomorrow at 0730 with anesthesia 5. Severe kyphosis 6. Congestive systolic/diastolic heart failure, per cardiology -better compensated today 7. Dual chamber ICD placed 02/22/18, -completed ancef 3 doses post implant as prophylaxis. CXR does not show pneumothorax or post implant complications. Device check stable today. -Increased LRL to 75 bpm. 8. CHADS2-VASC: at least 4. -OAC is indicated and was previously on Eliquis. This hospitalization he has been on lovenox but had hemoptysis and anticoagulation therapy was discontinued. Tikosyn as nicely stabilizing his rhythm in addition to increasing his lower rate limit to 70bpm on his new device. We will try low dose eliquis and see if he tolerates this without bleeding issues.
--- NOTE | 2018-02-23 15:42 | PDOC.PN ---
- Subjective Encounter Start Date: 02/23/18 Encounter Start Time: 07:40 Pt seen for followup re: copd exacerbation. Denies chest pain, shortness o breath, fevers or chills. Cough+ - Objective Resuscitation Status: Resuscitation Status FULL:Full Resuscitation MAR Reviewed: Yes Vital Signs & Weight: Vital Signs (12 hours) Temp Pulse Resp BP BP Pulse Ox 02/23/18 14:49 93 18 93 L 02/23/18 12:20 98.2 F 84 20 111/65 94 L 02/23/18 11:26 87 16 94 L 02/23/18 07:47 80 16 95 02/23/18 07:43 98.1 F 81 20 113/64 95 02/23/18 04:00 97.9 F 97 16 102/58 L 92 L Weight Admit Weight 171 lb Weight 160 lb 3.2 oz I&O: 02/22/18 02/23/18 02/24/18 06:59 06:59 06:59 Intake Total 1090 370 Output Total 1150 900 Balance -60 -530 Result Diagrams: 02/21/18 05:23 02/23/18 04:50 EKG Reviewed by me: Yes (Tele: NSR, PVCs) Phys Exam - Physical Examination Constitutional: NAD HEENT: moist MMs Neck: supple Respiratory: clear to auscultation bilateral Cardiovascular: RRR Gastrointestinal: soft kyphosis Neurological: moves all 4 limbs Psychiatric: normal affect Dx/Plan (1) COPD exacerbation Code(s): J44.1 - CHRONIC OBSTRUCTIVE PULMONARY DISEASE W (ACUTE) EXACERBATION Status: Acute Comment: Improving, pt on oral steroids (2) Atrial flutter Code(s): I48.92 - UNSPECIFIED ATRIAL FLUTTER Status: Acute Comment: on dofetilide (3) Rectus sheath hematoma Code(s): S30.1XXA - CONTUSION OF ABDOMINAL WALL, INITIAL ENCOUNTER Status: Acute Comment: hemoglobin stable (4) Kyphoscoliosis Code(s): M41.9 - SCOLIOSIS, UNSPECIFIED Status: Chronic Comment: stable (5) Cardiomyopathy Code(s): I42.9 - CARDIOMYOPATHY, UNSPECIFIED Status: Chronic Comment: s/p AICD during this hospitalization - Plan * . Review of Systems - Review of Systems Respiratory: Cough, Dry. negative: Shortness of Breath, Hemoptysis, SOB with Excertion, Pleuritic Pain, Sputum, Wheezing Cardiovascular: negative: chest pain, palpitations, orthopnea, paroxysmal nocturnal dyspnea, edema, light headedness - Medications/Allergies Allergies/Adverse Reactions: Allergies Allergy/AdvReac Type Severity Reaction Status Date / Time ibuprofen [From Motrin] Allergy Verified 08/13/16 22:40 Medications: Current Medications Acetaminophen (Tylenol) 650 mg PO Q4H PRN PRN Reason: Headache/Fever/Mild Pain (1-3) Last Admin: 02/19/18 23:13 Dose: 650 mg Hydrocodone Bitart/Acetaminophen (Holt 5/325) 1 tab PO Q4H PRN PRN Reason: Moderate to Severe Pain (6-10) Last Admin: 02/22/18 20:11 Dose: 1 tab Albuterol/Ipratropium (Duoneb) 3 ml NEB [id number] [facility] Last Admin: 02/23/18 14:49 Dose: 3 ml Apixaban (Eliquis) 2.5 mg PO BID [facility] Aspirin (Ecotrin) 81 mg PO DAILY [facility] Last Admin: 02/23/18 09:04 Dose: 81 mg Atorvastatin Calcium (Lipitor) 20 mg PO DAILY [facility] Last Admin: 02/23/18 09:03 Dose: 20 mg Carvedilol (Coreg) 1.5625 mg PO BID-[facility] Last Admin: 02/23/18 09:04 Dose: 1.5625 mg Diphenhydramine HCl (Benadryl) 25 mg PO Q4H PRN PRN Reason: Itching Last Admin: 02/17/18 21:16 Dose: 25 mg Dofetilide (Tikosyn) 0.25 mg PO BID [facility] Last Admin: 02/23/18 09:03 Dose: 0.25 mg Furosemide (Lasix) 40 mg SLOW IVP DAILY [facility] Last Admin: 02/23/18 09:03 Dose: 40 mg Guaifenesin (Mucinex) 1,200 mg PO Q12HR [facility] Last Admin: 02/23/18 09:03 Dose: 1,200 mg Lisinopril (Zestril) 2.5 mg PO DAILY [facility] Last Admin: 02/23/18 09:03 Dose: 2.5 mg Loratadine (Claritin) 10 mg PO DAILY [facility] Last Admin: 02/23/18 09:04 Dose: 10 mg Mometasone Furoate/Formoterol Fumar (Dulera 100 Mcg/5 Mcg Inhaler) 2 puff INH BID-RT [facility] Last Admin: 02/23/18 07:47 Dose: 2 puff Polyethylene Glycol (Miralax) 17 gm PO DAILYPRN [facility] Last Admin: 02/21/18 21:13 Dose: 17 gm Prednisone (Prednisone) 20 mg PO QAM-[facility] Senna (Senokot) 2 tab PO DAILYPRN PRN PRN Reason: Constipation Last Admin: 02/22/18 20:04 Dose: 2 tab Sodium Chloride (Flush - Normal Saline) 10 ml IVF Q12HR [facility] Last Admin: 02/23/18 09:03 Dose: 10 ml Sodium Chloride (Flush - Normal Saline) 10 ml IVF PRN PRN PRN Reason: Saline Flush Last Admin: 02/17/18 17:55 Dose: 10 ml
--- NOTE | 2018-02-23 15:43 | EKG ---
Test Reason : 2 HRS POST TIKOSYN Blood Pressure : / mmHG Vent. Rate : 095 BPM Atrial Rate : 095 BPM P-R Int : 154 ms QRS Dur : 114 ms QT Int : 386 ms P-R-T Axes : 071 -31 246 degrees QTc Int : 485 ms Sinus rhythm with occasional Premature ventricular complexes Possible Left atrial enlargement Non-specific intra-ventricular conduction delay Left axis deviation Prolonged QT Abnormal ECG Confirmed by KURT MORRIS ([id number]) on 02/23/2018 3:43:04 PM Referred By: BHARATH Confirmed By:KURT MORRIS
[2018-02-23] MEDS: Apixaban 2.5 MG TAB PO SCH (21:26)
[2018-02-23] MEDS: HYDROcodone/Acetaminophen 5/325 mg Tablet PO PRN (21:30)
[2018-02-24 05:46] LABS: BUN (Urea Nitrogen) 6 mg/dL (8.4-25.7); Calc. Creatinine Clearance 104 mL/min (70-130); Calcium 8.3 mg/dL (7.8-10.44); Estimated GFR-MDRD Greater than 90; Glucose 94 mg/dL (83-110)
[2018-02-24 05:56] LABS: Anion Gap 12 mmol/L (10-20); Carbon Dioxide 35 mmol/L (23-31); Chloride 94 mmol/L (98-107); Potassium 3.8 mmol/L (3.5-5.1); Sodium 137 mmol/L (136-145)
[2018-02-24] MEDS: Mometasone/Formoterol 120 PUFF INHALER INH SCH (07:26)
[2018-02-24] MEDS ORDERED: predniSONE 20 MG TAB PO SCH (08:00)
[2018-02-24] MEDS: Aspirin 81 mg Enteric Coated Tablet PO SCH (08:32)
[2018-02-24] MEDS: Furosemide 40 MG/4 ML VIAL SLOW IVP SCH (08:32)
[2018-02-24] MEDS: Lisinopril 2.5 MG TAB PO SCH (08:32)
[2018-02-24] MEDS: Apixaban 2.5 MG TAB PO SCH (08:32)
[2018-02-24] MEDS: guaiFENesin ER 600 MG TAB PO SCH (08:33)
[2018-02-24] MEDS: Carvedilol 3.125 MG TAB PO SCH (08:33)
[2018-02-24] MEDS: Atorvastatin Calcium 20 MG TAB PO SCH (08:34)
[2018-02-24] MEDS: Dofetilide 0.125 MG CAP PO SCH (08:34)
[2018-02-24] MEDS: Loratadine 10 MG TAB PO SCH (08:34)
--- NOTE | 2018-02-24 14:32 | PDOC.CTH ---
Cardiology Progress Note - Subjective Patient resting. No complaints. - Objective Vital Signs Temp Pulse Resp BP BP BP Pulse Ox 02/24/18 11:51 97.7 F 82 20 98/58 L 93 L 02/24/18 11:31 87 12 02/24/18 07:59 97.4 F L 78 20 92/54 L 94 L 02/24/18 07:26 74 16 02/24/18 07:22 93 L 02/24/18 07:20 74 16 02/24/18 04:00 97.5 F L 51 L 16 108/52 L 98 Admit Weight 171 lb Weight 163 lb 4.8 oz 02/23/18 02/24/18 02/25/18 06:59 06:59 06:59 Intake Total 370 2070 Output Total 900 1250 Balance -530 820 - Physical Examination General/Neuro: alert & oriented x3 Neck: no JVD present Lungs: CTA Heart: RRR - Telemetry Telemetry Rhythm: SR - Labs Result Diagrams: 02/21/18 05:23 02/24/18 05:05 Troponin/CKMB CK-MB (CK-2) 10.1 ng/mL (0-6.6) H* 02/13/18 15:11 Troponin I 0.032 ng/mL (< 0.028) H 02/13/18 21:30 - Assessment/Plan 1. Asthmatic bronchitis 2. 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 No changes to care. Continue monitoring on Eliquis. Try to titrate up to therapeutic dosing if possible.
--- NOTE | 2018-02-24 14:44 | PDOC.CTH ---
Cardiology Progress Note - Subjective EP progress note: Doing well since ICD implant. No cardiac concerns or complaints. No pain at implant site. Anticipating DC today or tomorrow - Objective Vital Signs Temp Pulse Resp BP BP BP Pulse Ox 02/24/18 11:51 97.7 F 82 20 98/58 L 93 L 02/24/18 11:31 87 12 02/24/18 07:59 97.4 F L 78 20 92/54 L 94 L 02/24/18 07:26 74 16 02/24/18 07:22 93 L 02/24/18 07:20 74 16 02/24/18 04:00 97.5 F L 51 L 16 108/52 L 98 Admit Weight 171 lb Weight 163 lb 4.8 oz 02/23/18 02/24/18 02/25/18 06:59 06:59 06:59 Intake Total 370 2070 Output Total 900 1250 Balance -530 820 - Physical Examination General/Neuro: alert & oriented x3, NAD Neck: carotid US brisk, no JVD present Lungs: CTA, unlabored respirations Heart: other: (SR with ventricular ectopy) Abdomen: NT/ND, soft Other PE findings: ICD incision stable, Superficial bruising, No hematoma - Telemetry Telemetry Rhythm: SR with PVCs - Labs Result Diagrams: 02/21/18 05:23 02/24/18 05:05 Troponin/CKMB CK-MB (CK-2) 10.1 ng/mL (0-6.6) H* 02/13/18 15:11 Troponin I 0.032 ng/mL (< 0.028) H 02/13/18 21:30 - Assessment/Plan 1. Paroxysmal atrial arrhythmias (MAT, atypical atrial flutter) -now in SR,on Tikosyn. QT ~360 msec and stable on tikosyn 250mcg BID. 2. Frequent PVC 3. Non sustained wide complex tachycardia, NSVT vs AF with abberrancy 4. Chronic cardiomyopathy -NPO after MN for dual chamber ICD implant tomorrow at 0730 with anesthesia 5. Severe kyphosis 6. Congestive systolic/diastolic heart failure, per cardiology -better compensated today 7. Dual chamber ICD placed 02/22/18, -completed ancef 3 doses post implant as prophylaxis. CXR does not show pneumothorax or post implant complications. Device check stable today. -Increased LRL to 75 bpm. -Keflex 500mg PO QID x 7 days post implant 8. CHADS2-VASC: at least 4. -OAC is indicated and was previously on Eliquis. This hospitalization he has been on lovenox but had hemoptysis and anticoagulation therapy was discontinued. Resumed low dose Eliquis 2.5mg BID last night. Tolerating well. If no further issues are seen at follow up appt, anticipate returning to full dose eliquis Tikosyn as nicely stabilizing his rhythm in addition to increasing his lower rate limit to 70bpm on his ICD. Overnight he has had some more ventricular ectopy but no further A fib/flutter has been seen. OK for DC by EP. 2 week wound check on 03/09 @ 12:15 at [facility]
[2018-02-24 16:23] VITALS: BP 108/59; TEMP 98.3
[2018-02-24] MEDS ORDERED: Cephalexin 250 MG CAP PO SCH (18:00)
--- NOTE | 2018-02-25 20:21 | DIS ---
DATE OF ADMISSION: 02/13/2018 DATE OF DISCHARGE: 02/24/2018 DISCHARGE DIAGNOSES: 1. Chronic obstructive pulmonary disease exacerbation. 2. Combined systolic/diastolic heart failure. 3. Cardiomyopathy with ejection fraction 30%-35%. 4. Atrial fibrillation/flutter. 5. Kyphoscoliosis. 6. Rectus sheath hematoma. 7. Nonsustained wide complex tachycardia and supraventricular tachycardia versus atrial fibrillation with aberrancy. HOSPITAL COURSE: This patient is a 77-year-old male with a history of severe kyphoscoliosis with roc or truncal physical deformity and history of polio in childhood. Patient also has a history of COPD and initially presented via the emergency department with complained of worsening shortness of breath over months which had become recently significantly worse. He initially appeared to have some evide nce of decompensated heart failure and COPD exacerbation. He was admitted to the hospital and starte d on steroids, nebulizer treatments, and was seen in consultation by Cardiology and Pulmonary. The p atient had an echocardiogram revealing reduced ejection fraction at 30%-35%. He also continued to aragon ve some persistent atrial fibrillation flutter. This was apparently chronic in nature and the patien t had not been on any anticoagulation, so he was started on Lovenox, but subsequently developed some groin type pain and had a CT abdomen and pelvis which revealed evidence of a rectus sheath hematoma. The Lovenox was subsequently held. The patient was seen by Dr. Arora for recurrent atrial tachycardi a and nonsustained wide complex tachycardia. He ultimately started the patient on Tikosyn and had so me dose reduction based on QTC. However, with repeat echocardiogram confirming the patient's persist ent reduced ejection fraction, it was felt the patient would benefit from AICD placement. This was u ltimately performed on 02/23/2018. The patient tolerated the procedure well and was monitored throug hout the night and was felt to be subsequently stable for discharge. The patient reported that he wa s able to get around with a walker and was moving to family property where he had other family member s nearby, although they were not going to be present at the time of discharge. He was adamant that sarah matta was not interested in going any type of rehabilitation environment. Overall, his respiratory sympt oms had substantially improved. PHYSICAL EXAMINATION: VITAL SIGNS: On the day of discharge, temperature 98.3, pulse 78, respirations 20, O2 sat 93% on 2 l iters, BP 108/59. GENERAL: Age appropriate male. He is in no distress, talking in full sentences and conversant. He has a significant kyphoscoliosis with chest deformity. He has the AICD placed in the left upper ches t with some superficial bruising extending over the left anterior shoulder area. HEART: Regular, presently. There is no murmurs. LUNGS: Diminished but clear. EXTREMITIES: No peripheral edema. DISPOSITION: The patient is discharged home. ACTIVITY: His activity as tolerated. DIET: He will be on a heart healthy diet. DISCHARGE MEDICATIONS: Eliquis 2.5 mg b.i.d., Coreg 1.5625 b.i.d. with meals. He will be on Tikosyn 0.25 mg b.i.d., lisinopril 2.5 mg every day, prednisone 20 mg every day, Keflex 500 mg p.o. q.6 hour s, Ventolin HFA p.r.n. and Lasix 20 mg every day, loratadine 10 mg every day, fluticasone 1 spray per nostril b.i.d., omeprazole 20 mg every day, sennosides 25 mg daily as needed, temazepam 50 mg at bed time p.r.n., aspirin 81 mg every day, albuterol nebs p.r.n., Breo Ellipta 1 inhalation every day, Ck adryl p.r.n., atorvastatin 20 mg every day, Lisinopril 5 mg daily, multivitamin 1 every day, vitamin D2 of 5000 units every day, Tylenol p.r.n. FOLLOWUP: He is to follow up with cardiac rehab in [place]. He will have [facility] to the [facility] with disease management program. He is to follow up with Dr. Chand, Dr. Piero Wyatt, Dr. Jovon Arora and Dr. Jeff Medrano. He can return [facility] the emergency department [facility] he have any problems prior to those followup visit.
--- NOTE | 2018-02-27 11:44 | EKG ---
Test Reason : Blood Pressure : / mmHG Vent. Rate : 095 BPM Atrial Rate : 095 BPM P-R Int : 186 ms QRS Dur : 110 ms QT Int : 376 ms P-R-T Axes : 077 021 253 degrees QTc Int : 472 ms Sinus rhythm with Premature supraventricular complexes and with frequent , and consecutive Premature ventricular complexes Prolonged QT Abnormal ECG Confirmed by KURT MORRIS ([id number]) on 02/27/2018 11:44:10 AM Referred By: SHERRIE Confirmed By:KURT MORRIS
--- NOTE | 2018-02-27 11:48 | EKG ---
Test Reason : 2 HR POST TIKOSYN Blood Pressure : / mmHG Vent. Rate : 086 BPM Atrial Rate : 086 BPM P-R Int : 158 ms QRS Dur : 114 ms QT Int : 384 ms P-R-T Axes : 076 -22 255 degrees QTc Int : 459 ms Normal sinus rhythm Possible Left atrial enlargement Abnormal ECG Confirmed by KURT MORRIS ([id number]) on 02/27/2018 11:48:34 AM Referred By: BHARATH Confirmed By:KURT MORRIS
== END 2018-02-24 16:53 | disposition home health service (06) | DRG 226 ==
LOC: ERS 14:34 → ERHOLD 18:18 → 2NO 22:19
PROVIDERS: ADMIT Internal Medicine; ATTEND Internal Medicine
PROC: 0JH608Z Insertion of Defibrillator Generator into Chest Subcutaneous Tissue and Fascia, Open Approach (ICD-10-PCS; principal; 2018-02-22)
PROC: 02HK3KZ Insertion of Defibrillator Lead into Right Ventricle, Percutaneous Approach (ICD-10-PCS; 2018-02-22)
PROC: 02H63KZ Insertion of Defibrillator Lead into Right Atrium, Percutaneous Approach (ICD-10-PCS; 2018-02-22)
DX: I11.0 Hypertensive heart disease with heart failure (principal); J96.21 Acute and chronic respiratory failure with hypoxia; I47.2 Ventricular tachycardia; J44.1 Chronic obstructive pulmonary disease with (acute) exacerbation; I48.92 Unspecified atrial flutter; I50.43 Acute on chronic combined systolic (congestive) and diastolic (congestive) heart failure; I42.8 Other cardiomyopathies; M41.9 Scoliosis, unspecified; I27.81 Cor pulmonale (chronic); G47.33 Obstructive sleep apnea (adult) (pediatric); K21.9 Gastro-esophageal reflux disease without esophagitis; G14 Postpolio syndrome; I48.0 Paroxysmal atrial fibrillation; I49.3 Ventricular premature depolarization; I34.0 Nonrheumatic mitral (valve) insufficiency; Z86.73 Personal history of transient ischemic attack (TIA), and cerebral infarction without residual deficits; S30.1XXA Contusion of abdominal wall, initial encounter; M06.9 Rheumatoid arthritis, unspecified; K59.00 Constipation, unspecified; Z88.6 Allergy status to analgesic agent; Z87.891 Personal history of nicotine dependence; M79.81 Nontraumatic hematoma of soft tissue; T45.515A Adverse effect of anticoagulants, initial encounter
CPT/HCPCS: 33249; 36005; 36415; 36416; 71045; 71275; 74177; 75820; 80048; 80053; 82553; 82805; 83880; 84436; 84443; 84481; 84484; 85014; 85018; 85025; 93005; 93010; 93306; 93641; 93798; 94640; 94664; 94760; 96365; 96366; 96375; C1721; C1895; C1898; J0690; J1160; J1650; J1940; J1956; J2001; J2250; J2270; J2920; J2930; J3490; J7050; J7506; J7611; J7620; J8499

== ENCOUNTER 2018-03-08 17:02 | Inpatient (IN) | payer MEDICARE ==
[2018-03-08 17:38] LABS: #Eosinphils 0.1 thou/uL (0.0-0.7); #Lymphocytes 0.9 thou/uL (1.20-3.40); #Monocytes 0.8 thou/uL (0.11-0.59); #Neutrophils 6.5 thou/uL (1.40-6.50); %Basophils 0.1 % (0.0-1.0); %Eosinophils 1.5 % (0.0-10.0); %Lymphocytes 10.2 % (21.0-51.0); %Monocytes 10.1 % (0.0-10.0); %Neutrophils 78.1 % (42.0-75.0); Hemoglobin 11.2 g/dL (14.0-18.0); Mean Corpuscular HGB CONC 30.9 g/dL (32.0-36.0); Mean Corpuscular Hemoglobin 31.9 pg (27.0-31.0); Mean Platelet Volume 7.7 fL (7.4-10.4); Platelet Count 143 thou/uL (130-400); RBC Distribution Width 14.9 % (11.5-14.5); Red Blood Cell (RBC) Count 3.52 mill/uL (4.70-6.10); White Blood Cell (WBC) Count 8.4 thou/uL (4.8-10.8)
[2018-03-08 17:41] LABS: INR-International Normal Ratio 1.2; PTT 30.5 SEC (22.9-36.1); Prothrombin Time 15.2 SEC (12.0-14.7)
[2018-03-08 17:46] LABS: Actual Bicarbonate (HCO3a) 29.5 mEq/L (22-28); Analyzer IN Cardio ER; Base Excess (BEa) 4.6 mEq/L (-2.0 to +3.0); CO2 Tension 45.2 mmHg (35.0-45.0); Calcium, Ionized 1.11 mmol/L (1.12-1.30); Carboxyhemoglobin (COHb) 1.3 gm% (0.0-3.0); O2 Tension (PaO2) 63.8 mmHg (> 70.0); Potassium - ABG Lab 3.62 mmol/L (3.70-5.30); pH, Arterial 7.43 (7.35-7.45)
[2018-03-08 17:47] LABS: Puncture Site RRA
[2018-03-08 18:00] LABS: ALT (SGPT) 17 U/L (8-55); AST (SGOT) 26 U/L (5-34); Albumin 2.8 g/dL (3.4-4.8); Alkaline Phosphatase 68 U/L (40-150); Anion Gap 9 mmol/L (10-20); BUN (Urea Nitrogen) 13 mg/dL (8.4-25.7); Bilirubin, Total 1.4 mg/dL (0.2-1.2); Calc. Creatinine Clearance 0 mL/min (70-130); Calcium 8.3 mg/dL (7.8-10.44); Carbon Dioxide 33 mmol/L (23-31); Chloride 98 mmol/L (98-107); Estimated GFR-MDRD Greater than 90; Globulin 1.8 g/dL (2.4-3.5); Glucose 94 mg/dL (83-110); Lipase 14 U/L (8-78); Potassium 3.7 mmol/L (3.5-5.1); Protein, Total 4.6 g/dL (5.8-8.1); Sodium 136 mmol/L (136-145)
[2018-03-08 18:01] LABS: CKMB 4.2 ng/mL (0-6.6); Troponin I 0.057 ng/mL (< 0.028)
--- NOTE | 2018-03-08 19:48 | CT ---
CT OF THE CHEST WITH IV CONTRAST CT OF THE ABDOMEN AND PELVIS WITH IV CONTRAST 03/08/18 INDICATION: Bruising right chest wall and bilateral flanks with history of COPD and CHF. COMPARISON: Prior CT of the thorax dated 04/05/[address] of the abdomen and pelvis dated 02/20/18. FINDINGS: There is stable cardiomegaly with small bilateral pleural effusions and interstitial and perihilar gr ound glass opacities suspicious for changes of CHF with perihilar edema. No pneumothorax is evident. There is enlargement pulmonary arterial tree which is stable to the prior exam, which may reflect alberto nges of secondary pulmonary artery hypertension. There is stable hepatic cysts. There are numerous gallstones within a moderately distended gallbladde r. There are stable left renal cysts. The pancreas, adrenal glands and spleen appear within normal li mits. There is scattered diverticula involving the colon. There is an enlarging heterogeneously dense mass within the right anterior abdominal wall and the rec tus sheath measuring 9.7 x 4 cm where it previously measured 7.2 x 4.4 cm. The findings are suspiciou s for abdominal wall hematoma. There is also some hematoma extending into the right extraperitoneal a bdominal space causing some mass effect on the bladder. This is less prominent than seen on the desirae rison CT examination. There is diffuse osteopenia. There is stable scoliosis. There are multiple healed rib deformities. No definite acute osseous abnormality is evident. IMPRESSION: 1. Findings suggesting mild CHF. 2. Hematoma involving the right lower rectus sheath with some hemorrhage extension into the righ t lower extraperitoneal space of the right lower quadrant of the abdomen causing mild mass effect on the bladder. POS: YEN
[2018-03-08 22:41] LABS: Bilirubin Negative (Negative); Blood, Urine Negative (Negative); Clarity CLEAR (Clear); Glucose, Urine (Dipstick) Negative (Negative); Leukocyte Negative (Negative); Nitrite Negative (Negative); Protein, Urine (Dipstick) Negative (Neg-Trace)
[2018-03-08 22:45] LABS: Specific Gravity, Urine 1.057 (1.002-1.036)
--- NOTE | 2018-03-09 00:15 | HP ---
CHIEF COMPLAINT: Shortness of breath. HISTORY OF PRESENT ILLNESS: This is a 77-year-old male with past medical history of asthma, COPD, CV A, severe kyphotic scoliosis, and a history of polio, presenting with worsening shortness of breath, which has been ongoing for months. Per patient, he was at home and he was having difficulty catching his breath. He was trying as much as he can to be able to inhale so that he does not have to come t o the hospital, but started having respiratory distress; therefore, his family called EMS and transpo rted the patient to the hospital to be evaluated. Per family, the patient was also noted to have iris e hematoma at the truncal region at his back, right flank and some parts of his chest. This hematoma and ecchymosis is new per the daughter. Patient currently denies fever, chills, palpitation, dizzin ess, abdominal pain, however, admits to slight shortness of breath when he takes off his nasal cannul a. Of note, patient was recently admitted to our hospital and was discharged on 02/24/2018. During that visit, the patient had an echo done, which showed that his left ventricular ejection fraction was 30 %-35%. The patient was treated with nebulizers and steroids, and due to atrial fibrillation with flu tter that was seen, customer operations specialist was consulted to examine the patient. Basically, electrophys iologist started the patient on Tikosyn, and an AICD was placed during that visit. REVIEW OF SYSTEMS: Positive for shortness of breath and hematoma at the truncal region, specifically at the right flank and left flank. Otherwise, as documented in the HPI, all other systems are revie wed and are negative. PAST MEDICAL HISTORY: COPD, atrial fibrillation, CHF, asthma. FAMILY HISTORY: Reviewed and noncontributory to this visit. PAST SURGICAL HISTORY: The patient had two hernia repairs, left elbow cyst drainage, right forearm s urgery. PSYCHIATRIC HISTORY: The patient has no previous psych history on file. SOCIAL HISTORY: The patient is a former tobacco user. Patient smoked cigarettes in the past, quit a bout 50 years ago. The patient denies any alcohol use. The patient denies any illicit drug use. ALLERGIES: The patient is allergic to IBUPROFEN and MOTRIN. CURRENT MEDICATIONS: 1. Eliquis 2.5 mg b.i.d. 2. Coreg 6.25 b.i.d. with meals. 3. Tikosyn 0.25 mg b.i.d. 4. Lisinopril 2.5 mg everyday. 5. Prednisone 20 mg everyday. 6. Keflex 500 mg p.o. q.6 hours. 7. Ventolin HFA p.r.n. 8. Lasix 20 mg everyday. 9. Loratadine 10 mg everyday. 10. Fluticasone 1 spray per nostril b.i.d. 11. Omeprazole 20 mg everyday. 12. Sennosides 25 mg daily as needed. 13. Temazepam 15 mg at bedtime p.r.n. 14. Aspirin 81 mg daily. 15. Albuterol nebs p.r.n. 16. Breo Ellipta one inhalation everyday. 17. Benadryl p.r.n. 18. Atorvastatin 20 mg daily. 19. Lisinopril 5 mg daily. 20. Multivitamins 1 everyday. 21. Vitamin D2 of 5000 units everyday. 22. Tylenol p.r.n. PHYSICAL EXAMINATION: VITAL SIGNS: Blood pressure is 109/59, pulse is 98, respiratory rate of 23, temperature of 97.8, O2 sat of 94 on 3 liters oxygen. GENERAL: The patient is lying in bed with a nasal cannula on, does not appear to be in any distress at this time, patient is speaking in full sentences. HEENT: Normocephalic, atraumatic. Pupils are equally round and reactive to light. Extraocular move ments are intact. No scleral icterus. No conjunctival pallor. Mucous membranes are moist. NECK: Trachea is midline. No JVD. Full range of motion. Neck is supple. LUNGS: Patient has bilateral wheezes that is noted on physical exam, no rales. CARDIOVASCULAR: Positive S1, S2. Regular rate and rhythm. No murmurs, no gallops, no rubs apprecia arabella. ABDOMEN: Patient has ecchymosis at his abdomen on the left flank, right flank, on his back and chest , and anterior aspect of his abdomen where the rectus abdominis muscle is otherwise nontender, nondis tended, positive bowel sounds in all quadrants. BACK: Patient has kyphosis that is noted on exam. EXTREMITIES: The patient has 5/5 upper extremity strength, good pulses bilaterally in the upper extr emity and 5/5 lower extremity strength, good pulses in the bilateral lower extremities. The patient do have a 1+ edema that is noted at the lower extremities. LABORATORY DATA: WBC is 8.4, hemoglobin is 11.2, hematocrit is 36.4, platelet count is 143. BNP is 2649. PTT is 30.5. INR is 1.2. ABG: A pH is 7.43, pCO2 is 45.2, oxygen saturation is 63.8. Lactic acid is 1.2. Electrolytes: Sodium 136, potassium 3.7, chloride is 98, anion gap of 9, BUN is 13, creatinine is 0. 61. Troponin is 0.057. CT scan of the chest, abdomen and pelvis with IV contrast showed findings suggestive of mild CHF, hem atoma involving the right lower rectus sheath with some hemorrhage extending into the right lower ext raperitoneal space of the right lower quadrant of the abdomen causing mild mass effect on the bladder . ASSESSMENT AND PLAN: 1. Shortness of breath due to hypercapnic respiratory failure. The patient has a history of chronic obstructive pulmonary disease and the patient's chronic obstructive pulmonary disease is worsening. At this point, the patient has been started on DuoNebs. We will continue steroids. The patient was placed on BiPAP p.r.n. to help with his shortness of breath. We will continue patient on BiPAP. We will admit the patient to the intermediate medical care unit. 2. Acute on chronic systolic heart failure. The patient has 1+ edema at this time. We will give pa tient Lasix in the a.m. At this time, patient's blood pressure is low, so we will hold off any diure sis at this time. We will monitor the patient in intermediate medical care unit. We will keep our e ye on the patient's blood pressure very closely. 3. Hematoma involving the right lower rectus sheath muscle secondary to anticoagulation use. At thi s point, the patient do have a hematoma in the left extraperitoneal space causing mild mass effect on the bladder. We will consult Interventional Radiology for possible drainage in the a.m. We will mo nitor the patient closely. 4. Arrhythmias, status post automatic implantable cardioverter defibrillator placement. At this liam e, patient is on anticoagulation. We will hold patient's anticoagulation at this time due to the hem atoma seen on a CT scan. We will restart the patient's anticoagulation after a hematoma has been jm cuated and patient is stable. We will continue patient on current home medications and we will hold Eliquis. 5. Cor pulmonale. We will continue patient on current home regimen. 6. Obstructive sleep apnea. The patient is currently on BiPAP in the hospital. We will continue pa tient on BiPAP p.r.n. 7. Kyphoscoliosis. The patient is currently stable. We will monitor the patient closely. 8. Gastroesophageal reflux disease. We will continue the patient on the current regimen. 9. Deep venous thrombosis and gastrointestinal prophylaxis.
[2018-03-09] MEDS ORDERED: Ondansetron PF 4 MG/2 ML Vial IVP PRN (01:32)
[2018-03-09] MEDS ORDERED: Acetaminophen 325 MG TAB PO PRN (01:32)
[2018-03-09] MEDS ORDERED: Ondansetron ODT 4 MG TAB SL PRN (01:32)
[2018-03-09] MEDS ORDERED: Temazepam 15 MG CAP PO PRN (03:38)
[2018-03-09] MEDS ORDERED: diphenhydrAMINE 25 MG CAP PO PRN (03:38)
[2018-03-09] MEDS ORDERED: traZODone HCl 50 MG TAB PO PRN (03:38)
[2018-03-09] MEDS ORDERED: Senokot 8.6 MG TAB PO PRN (03:38)
[2018-03-09] MEDS ORDERED: PROVENTIL INHALER 6.7 G (200 INHALATIONS) INH PRN (03:38)
[2018-03-09] MEDS ORDERED: Sodium Chloride 0.9% 250 ML IVPB SCH (05:30)
[2018-03-09] MEDS ORDERED: Albuterol Sulfate 2.5 mg/3 ml Neb NEB SCH (07:00)
[2018-03-09] MEDS: Mometasone/Formoterol 120 PUFF INHALER INH SCH ×2 (07:52→19:00)
[2018-03-09] MEDS: Multivit, Therapeutic 1 TAB PO SCH (08:37)
[2018-03-09] MEDS: Carvedilol 3.125 MG TAB PO SCH ×2 (08:37→16:14)
[2018-03-09] MEDS: predniSONE 20 MG TAB PO SCH (08:37)
[2018-03-09] MEDS: Loratadine 10 MG TAB PO SCH (08:37)
[2018-03-09] MEDS: Lisinopril 2.5 MG TAB PO SCH (08:37)
[2018-03-09] MEDS: guaiFENesin ER 600 MG TAB PO SCH ×2 (08:37→20:22)
[2018-03-09] MEDS: Atorvastatin Calcium 20 MG TAB PO SCH (08:38)
[2018-03-09] MEDS: Famotidine 20 MG TAB PO SCH ×2 (08:39→20:22)
[2018-03-09] MEDS: Famotidine/PF 20 mg/2ml Vial SLOW IVP SCH ×2 (08:39→20:22)
[2018-03-09] MEDS: Dofetilide 0.125 MG CAP PO SCH ×2 (08:39→20:22)
[2018-03-09] MEDS ORDERED: Furosemide 40 MG TAB PO SCH (09:00)
[2018-03-09] MEDS ORDERED: Dofetilide 0.125 MG CAP PO SCH (09:00)
[2018-03-09] MEDS ORDERED: Non-Formulary Item 1 EACH (Fluticasone/Vilanterol [Breo Ellipta] 1 INH) IH SCH (09:00)
--- NOTE | 2018-03-09 11:52 | CON ---
DATE OF CONSULTATION: 03/09/2018 SERVICE: Pulmonary Medicine. REASON FOR CONSULTATION: Shortness of breath. HISTORY OF PRESENT ILLNESS: The patient is a 77-year-old white male who was recently in the hospital with a case of asthmatic bronchitis. He also had some heart issues. Ultimately, a pacemaker defibrillator was placed. On discharge from the hospital last week, he initially had 2 fantastic days. That being said , he had slow progressive increase in shortness of breath that brought him back to the Emergency Department. This time, he did not feel like he was wheezing. He did not have any fevers or chills. He had a little bit of cough that was continuing to improved compared to his previous hospital stay. He did not have any sputum production other than some episodes of hemoptysis. These things have been longstanding. It seems that the hemoptysis also was clearing, as the blood that was coming out got increasingly darker on discharge from the hospital. Otherwise, he denies any current fevers, chills, nausea, vomiting or diarrhea. His shortness of breath is worse with exertion, when he bends over and when he sits up in bed. He actually feels much more comfortable lying down. PAST MEDICAL HISTORY: 1. Asthma with chronic obstruction. 2. Atrial fibrillation. 3. Congestive heart failure. 4. Scoliosis. PAST SURGICAL HISTORY: 1. Herniorrhaphy x2. 2. Left elbow surgery. 3. Right forearm surgery. FAMILY HISTORY: Noncontributory. SOCIAL HISTORY: He has a 20-30 pack year history of smoking, but quit when he was 27 years old. He denies any alcohol or illicit drug use. He has no exposure to chemicals, dust, asbestos or tuberculosis otherwise currently. 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 ALLERGIES: IBUPROFEN and MOTRIN. MEDICATIONS: List of his inpatient medications was reviewed. Multiple updates were made. REVIEW OF SYSTEMS: General, head, ears, eyes, nose, throat, cardiovascular, respiratory, GI, , musculoskeletal, neurologic and skin is negative except as mentioned in the HPI. PHYSICAL EXAMINATION: VITAL SIGNS: Afebrile, pulse 87, blood pressure 91/46, respirations 17, saturation 100% on 3 liters nasal cannula. GENERAL: The patient is awake and alert, in no apparent distress. LUNGS: There is excellent air entry. I really do not hear prolonged expiratory phase. Minimal rhonchi are present, but clear comfortably with cough. There is no wheezing. Very subtle crackles are present in the bibasilar region, but they are quite unimpressive. HEART: Normal rate. Regular. ABDOMEN: Soft, nontender, nondistended. Bowel sounds are positive. MUSCULOSKELETAL: No cyanosis or clubbing. There is 2+ pitting in the bilateral lower extremities. NEUROLOGIC: Grossly nonfocal. LABORATORY DATA: WBC 8.4, hemoglobin 11.2 (baseline 14), platelets 143,000. INR 1.2. PH 7.43, pCO2 45, pO2 64, corresponding to a saturation of 93%. This is while he was on nasal cannula at 4 liters per minute. Basic metabolic profile is essentially unremarkable. Total bilirubin 1.4, but otherwise LFTs are negative. BNP 2600 and up trending/at a historic high. Urinalysis is unremarkable. ASSESSMENT: 1. Acute hypoxic respiratory failure. 2. Chronic hypercapnic respiratory failure. 3. Asthma without acute exacerbation. 4. Acute blood loss anemia secondary to rectus sheath hematoma. 5. Acute on chronic systolic heart failure. DISCUSSION AND PLAN: We will trend hemoglobins through time to make certain that he is not continuing to drop. If he is, he may require intermittent blood transfusion. Home blood thinners and antiplatelet medications are currently on hold. I will deescalate his steroids to 20 mg daily. This was the previously recommended dose of medication that he was to be discharged on. I agree with long-acting beta agonist and inhaled corticosteroid as well as his p.r.n. nebulized medications. If it appears that his hemoglobins remain stable, he can be transitioned out of the ICU to the telemetry unit. We will diurese him through time as he is a touch volume overloaded. Pulmonary and Critical Care will continue to follow along during this hospital stay. From my perspective, however, he does not have an acute lung issue other than the heart failure and anemia causing the dyspnea. Dr. Medrano will assume care in the morning. 70 minutes have been devoted to this patient in various activities. I personally reviewed all imaging studies and laboratory data noted within this document. For fifty percent of this time, I was interacting with the patient at the bedside or coordinating care with the care team. For the remainder of the time I was immediately available to the patient in the hospital unit. JOSEFA
[2018-03-09 11:58] LABS: Hemoglobin 11.6 g/dL (14.0-18.0)
[2018-03-09] MEDS: Furosemide 20 MG/2 ML VIAL SLOW IVP SCH (13:50)
[2018-03-10 03:56] LABS: #Eosinphils 0.1 thou/uL (0.0-0.7); #Lymphocytes 0.8 thou/uL (1.20-3.40); #Monocytes 0.8 thou/uL (0.11-0.59); #Neutrophils 6.6 thou/uL (1.40-6.50); %Basophils 0.1 % (0.0-1.0); %Eosinophils 0.9 % (0.0-10.0); %Lymphocytes 9.4 % (21.0-51.0); %Monocytes 9.5 % (0.0-10.0); %Neutrophils 80.1 % (42.0-75.0); Hemoglobin 10.7 g/dL (14.0-18.0); Mean Corpuscular HGB CONC 31.9 g/dL (32.0-36.0); Mean Corpuscular Hemoglobin 32.5 pg (27.0-31.0); Mean Platelet Volume 7.9 fL (7.4-10.4); Platelet Count 179 thou/uL (130-400); RBC Distribution Width 14.8 % (11.5-14.5); Red Blood Cell (RBC) Count 3.28 mill/uL (4.70-6.10); White Blood Cell (WBC) Count 8.2 thou/uL (4.8-10.8)
[2018-03-10 04:18] LABS: Anion Gap 9 mmol/L (10-20); BUN (Urea Nitrogen) 19 mg/dL (8.4-25.7); Calc. Creatinine Clearance 96 mL/min (70-130); Calcium 8.9 mg/dL (7.8-10.44); Carbon Dioxide 35 mmol/L (23-31); Chloride 99 mmol/L (98-107); Estimated GFR-MDRD Greater than 90; Glucose 104 mg/dL (83-110); Potassium 3.6 mmol/L (3.5-5.1); Sodium 139 mmol/L (136-145)
[2018-03-10] MEDS: Furosemide 20 MG/2 ML VIAL SLOW IVP SCH ×2 (05:49→14:32)
[2018-03-10] MEDS: Dofetilide 0.125 MG CAP PO SCH ×2 (09:33→20:38)
[2018-03-10] MEDS: Atorvastatin Calcium 20 MG TAB PO SCH (09:33)
[2018-03-10] MEDS: Famotidine 20 MG TAB PO SCH ×2 (09:34→20:34)
[2018-03-10] MEDS: Loratadine 10 MG TAB PO SCH (09:34)
[2018-03-10] MEDS: predniSONE 20 MG TAB PO SCH (09:34)
[2018-03-10] MEDS: guaiFENesin ER 600 MG TAB PO SCH ×2 (09:34→20:34)
[2018-03-10] MEDS: Multivit, Therapeutic 1 TAB PO SCH (09:34)
[2018-03-10] MEDS: Famotidine/PF 20 mg/2ml Vial SLOW IVP SCH ×2 (09:35→20:34)
[2018-03-10] MEDS: Lisinopril 2.5 MG TAB PO SCH (09:39)
[2018-03-10] MEDS: Carvedilol 3.125 MG TAB PO SCH ×2 (09:44→17:03)
--- NOTE | 2018-03-10 10:55 | PRG ---
DATE OF SERVICE: 03/10/2018 Jordy Rosa says he is feeling much better. PHYSICAL EXAMINATION: LUNGS: His lungs are clear today. HEART: Regular rhythm. ABDOMEN: Soft. LABORATORY: Hemoglobin is 10.7. Electrolytes are normal. Creatinine is 0.69. He has a large ecchymotic area in his left flank. IMPRESSION: 1. Probable congestive heart failure leading to his readmission. It is unlikely that asthma would h ave flared on 40 mg of prednisone. 2. Rectus muscle hemorrhage seen on CAT scan 02/20/2018, likely explaining his bruising on his abdom en and flank. 3. Blood loss anemia. 4. Underlying asthma. 5. Underlying cardiomyopathy. 6. Postpolio syndrome with deconditioning. 7. Sleep apnea. He loved the full face mask when he came in on BiPAP, so we will set him up with CPAP at 11 cm of gregory er pressure on full face mask while he is here.
[2018-03-10] MEDS: Mometasone/Formoterol 120 PUFF INHALER INH SCH ×2 (11:25→20:23)
--- NOTE | 2018-03-10 12:43 | PDOC.PN ---
- Subjective Encounter Start Date: 03/09/18 Encounter Start Time: 09:30 -: old records requested/rev Pt seen and examined, chart reviewed in its entitrety, this is my first visit with this patient follow up for SOB, possible AECOPD breathing better, no cough, no F/c, no N/V/D/C, no CP, no new events all systems reviewed and neg x as above - Objective Resuscitation Status: Resuscitation Status FULL:Full Resuscitation MAR Reviewed: Yes Vital Signs & Weight: Vital Signs (12 hours) Temp Pulse Resp BP BP BP BP 03/10/18 11:23 98.1 F 102 H 25 H 91/63 03/10/18 10:34 77/43 L 102/57 L 109/50 L 03/10/18 09:39 99 03/10/18 08:00 03/10/18 07:44 97.7 F 99 18 91/43 L 03/10/18 04:00 97.4 F L 67 18 94/55 L Pulse Ox 03/10/18 11:23 100 03/10/18 10:34 03/10/18 09:39 03/10/18 08:00 100 03/10/18 07:44 91 L 03/10/18 04:00 95 Weight Admit Weight 162 lb 4.16 oz Weight 162 lb 4.163 oz I&O: 03/09/18 03/10/18 03/11/18 06:59 06:59 06:59 Intake Total 560 1220 Output Total 325 1475 Balance 235 -255 Result Diagrams: 03/10/18 03:39 03/10/18 03:39 Phys Exam - Physical Examination Constitutional: NAD HEENT: PERRLA, moist MMs, oral pharynx no lesions severe arcus senilis Neck: no nodes, no JVD, supple, full ROM slightly prolonged exp phade, minimal exp wheezes Cardiovascular: RRR, no significant murmur Gastrointestinal: soft, non-tender, no distention, positive bowel sounds Musculoskeletal: edema present Neurological: non-focal, normal sensation, moves all 4 limbs Lymphatic: no nodes Psychiatric: normal affect, A&O x 3 Skin: no rash, normal turgor, cap refill <2 seconds Dx/Plan (1) Acute and chronic respiratory failure with hypoxia Code(s): J96.21 - ACUTE AND CHRONIC RESPIRATORY FAILURE WITH HYPOXIA Status: Acute (2) Acute on chronic systolic heart failure Code(s): I50.23 - ACUTE ON CHRONIC SYSTOLIC (CONGESTIVE) HEART FAILURE Status : Acute Comment: EF 40-40% range - ACEI/ARB on hold due to hypotension (3) Atrial fibrillation with RVR Code(s): I48.91 - UNSPECIFIED ATRIAL FIBRILLATION Status: Acute (4) COPD exacerbation Code(s): J44.1 - CHRONIC OBSTRUCTIVE PULMONARY DISEASE W (ACUTE) EXACERBATION Status: Acute Comment: Improving, pt on oral steroids (5) Chronic systolic congestive heart failure, NYHA class 3 Code(s): I50.22 - CHRONIC SYSTOLIC (CONGESTIVE) HEART FAILURE Status: Acute (6) Chronic a-fib Code(s): I48.2 - CHRONIC ATRIAL FIBRILLATION Status: Chronic Comment: on anticoagulation (7) Kyphoscoliosis Code(s): M41.9 - SCOLIOSIS, UNSPECIFIED Status: Chronic Comment: stable (8) MADELINE (obstructive sleep apnea) Code(s): G47.33 - OBSTRUCTIVE SLEEP APNEA (ADULT) (PEDIATRIC) Status: Chronic Comment: on CPAP (9) Rheumatoid arthritis Code(s): M06.9 - RHEUMATOID ARTHRITIS, UNSPECIFIED Status: Chronic - Plan cont current plan of care, continue antibiotics, PT/OT, respiratory therapy, out of bed/ambulate * . follow up on pulm recs. CCM, to floor if bed available
--- NOTE | 2018-03-10 12:46 | PDOC.PN ---
- Subjective Encounter Start Date: 03/10/18 Encounter Start Time: 10:40 follow up for A on C systolic CHF, AECOPD, acut judah chornic hypoxemic resp failure, RA better today, BP low when sitting up, no F/c, no n/V/D/C, pulm following, appreciate their assistance All systesm reviewed and neg x as above - Objective Resuscitation Status: Resuscitation Status FULL:Full Resuscitation MAR Reviewed: Yes Vital Signs & Weight: Vital Signs (12 hours) Temp Pulse Resp BP BP BP BP 03/10/18 11:23 98.1 F 102 H 25 H 91/63 03/10/18 10:34 77/43 L 102/57 L 109/50 L 03/10/18 09:39 99 03/10/18 08:00 03/10/18 07:44 97.7 F 99 18 91/43 L 03/10/18 04:00 97.4 F L 67 18 94/55 L Pulse Ox 03/10/18 11:23 100 03/10/18 10:34 03/10/18 09:39 03/10/18 08:00 100 03/10/18 07:44 91 L 03/10/18 04:00 95 Weight Admit Weight 162 lb 4.16 oz Weight 162 lb 4.163 oz I&O: 03/09/18 03/10/18 03/11/18 06:59 06:59 06:59 Intake Total 560 1220 Output Total 325 1475 Balance 235 -255 Result Diagrams: 03/10/18 03:39 03/10/18 03:39 Phys Exam - Physical Examination Constitutional: NAD HEENT: PERRLA, moist MMs, sclera anicteric, oral pharynx no lesions Neck: no nodes, no JVD, supple, full ROM Respiratory: no rales, no rhonchi, wheezing present Cardiovascular: no significant murmur, no rub, irregular Gastrointestinal: soft, non-tender, no distention, positive bowel sounds Musculoskeletal: edema present Neurological: non-focal, normal sensation, moves all 4 limbs Lymphatic: no nodes Psychiatric: normal affect, A&O x 3 Skin: no rash, normal turgor, cap refill <2 seconds Dx/Plan (1) Acute and chronic respiratory failure with hypoxia Code(s): J96.21 - ACUTE AND CHRONIC RESPIRATORY FAILURE WITH HYPOXIA Status: Acute (2) Acute on chronic systolic heart failure Code(s): I50.23 - ACUTE ON CHRONIC SYSTOLIC (CONGESTIVE) HEART FAILURE Status : Acute Comment: EF 40-40% range - ACEI/ARB on hold due to hypotension (3) Atrial fibrillation with RVR Code(s): I48.91 - UNSPECIFIED ATRIAL FIBRILLATION Status: Acute (4) COPD exacerbation Code(s): J44.1 - CHRONIC OBSTRUCTIVE PULMONARY DISEASE W (ACUTE) EXACERBATION Status: Acute Comment: Improving, pt on oral steroids (5) Chronic systolic congestive heart failure, NYHA class 3 Code(s): I50.22 - CHRONIC SYSTOLIC (CONGESTIVE) HEART FAILURE Status: Acute (6) Chronic a-fib Code(s): I48.2 - CHRONIC ATRIAL FIBRILLATION Status: Chronic Comment: on anticoagulation (7) Kyphoscoliosis Code(s): M41.9 - SCOLIOSIS, UNSPECIFIED Status: Chronic Comment: stable (8) MADELINE (obstructive sleep apnea) Code(s): G47.33 - OBSTRUCTIVE SLEEP APNEA (ADULT) (PEDIATRIC) Status: Chronic Comment: on CPAP (9) Rheumatoid arthritis Code(s): M06.9 - RHEUMATOID ARTHRITIS, UNSPECIFIED Status: Chronic - Plan cont current plan of care, plan discussed w/ family, continue antibiotics, PT/OT , psychotherapist social worker, respiratory therapy, out of bed/ambulate * .
[2018-03-11] MEDS: Furosemide 20 MG/2 ML VIAL SLOW IVP SCH ×2 (05:53→15:22)
[2018-03-11] MEDS: Atorvastatin Calcium 20 MG TAB PO SCH (09:01)
[2018-03-11] MEDS: guaiFENesin ER 600 MG TAB PO SCH ×2 (09:01→20:45)
[2018-03-11] MEDS: Loratadine 10 MG TAB PO SCH (09:02)
[2018-03-11] MEDS: Carvedilol 3.125 MG TAB PO SCH ×2 (09:02→17:07)
[2018-03-11] MEDS: Multivit, Therapeutic 1 TAB PO SCH (09:02)
[2018-03-11] MEDS: predniSONE 20 MG TAB PO SCH ×2 (09:02→20:45)
[2018-03-11] MEDS: Famotidine 20 MG TAB PO SCH ×2 (09:03→20:45)
[2018-03-11] MEDS: Dofetilide 0.125 MG CAP PO SCH ×2 (09:03→20:45)
[2018-03-11] MEDS: Famotidine/PF 20 mg/2ml Vial SLOW IVP SCH ×2 (09:05→20:46)
[2018-03-11] MEDS: Lisinopril 2.5 MG TAB PO SCH (09:07)
[2018-03-11] MEDS: Mometasone/Formoterol 120 PUFF INHALER INH SCH ×2 (11:16→18:35)
[2018-03-11] MEDS ORDERED: Albuterol Sulfate 2.5 mg/3 ml Neb NEB PRN (11:42)
--- NOTE | 2018-03-11 13:59 | PDOC.PN ---
- Subjective Encounter Start Date: 03/11/18 Encounter Start Time: 11:20 follow up for AECOPD, pulm HTN, SOB and acute on chornic hypoxemic resp failure No F/C, no N/V/D/C, no CP or sOB, no cough or sputum All systems reviewed and neg x as above - Objective Resuscitation Status: Resuscitation Status FULL:Full Resuscitation MAR Reviewed: Yes Vital Signs & Weight: Vital Signs (12 hours) Temp Pulse Resp BP BP BP Pulse Ox 03/11/18 13:20 96 15 03/11/18 12:09 98.8 F 110 H 24 H 107/51 L 95 03/11/18 11:16 117 H 18 03/11/18 09:20 117 H 18 03/11/18 09:07 96 110/56 L 03/11/18 08:00 96 03/11/18 07:38 98.4 F 96 23 H 94/52 L 90 L 03/11/18 05:50 95 101/70 03/11/18 04:38 99.0 F 97 18 99/55 L 99 03/11/18 03:29 104 H 22 H 98 Weight Admit Weight 162 lb 4.16 oz Weight 162 lb 4.163 oz I&O: 03/10/18 03/11/18 03/12/18 06:59 06:59 06:59 Intake Total 1220 1472 180 Output Total 1475 2300 125 Balance -255 -828 55 Result Diagrams: 03/10/18 03:39 03/10/18 03:39 Phys Exam - Physical Examination Constitutional: NAD HEENT: PERRLA, moist MMs, sclera anicteric, oral pharynx no lesions Neck: no nodes, no JVD, supple, full ROM Respiratory: no wheezing, clear to auscultation bilateral Cardiovascular: RRR, no significant murmur, no rub Gastrointestinal: soft, non-tender, no distention, positive bowel sounds Musculoskeletal: edema present Neurological: non-focal, normal sensation, moves all 4 limbs Lymphatic: no nodes Psychiatric: normal affect, A&O x 3 Skin: no rash, normal turgor, cap refill <2 seconds Dx/Plan (1) Acute and chronic respiratory failure with hypoxia Code(s): J96.21 - ACUTE AND CHRONIC RESPIRATORY FAILURE WITH HYPOXIA Status: Acute (2) Acute on chronic systolic heart failure Code(s): I50.23 - ACUTE ON CHRONIC SYSTOLIC (CONGESTIVE) HEART FAILURE Status : Acute Comment: EF 40-40% range - ACEI/ARB on hold due to hypotension (3) Atrial fibrillation with RVR Code(s): I48.91 - UNSPECIFIED ATRIAL FIBRILLATION Status: Acute (4) COPD exacerbation Code(s): J44.1 - CHRONIC OBSTRUCTIVE PULMONARY DISEASE W (ACUTE) EXACERBATION Status: Acute Comment: Improving, pt on oral steroids (5) Chronic systolic congestive heart failure, NYHA class 3 Code(s): I50.22 - CHRONIC SYSTOLIC (CONGESTIVE) HEART FAILURE Status: Acute (6) Chronic a-fib Code(s): I48.2 - CHRONIC ATRIAL FIBRILLATION Status: Chronic Comment: on anticoagulation (7) Kyphoscoliosis Code(s): M41.9 - SCOLIOSIS, UNSPECIFIED Status: Chronic Comment: stable (8) MADELINE (obstructive sleep apnea) Code(s): G47.33 - OBSTRUCTIVE SLEEP APNEA (ADULT) (PEDIATRIC) Status: Chronic Comment: on CPAP (9) Rheumatoid arthritis Code(s): M06.9 - RHEUMATOID ARTHRITIS, UNSPECIFIED Status: Chronic Qualifiers: Rheumatoid factor presence: with rheumatoid factor Laterality: unspecified laterality - Plan cont current plan of care, continue antibiotics, PT/OT, respiratory therapy, out of bed/ambulate * .
--- NOTE | 2018-03-11 16:02 | PRG ---
DATE OF SERVICE: 03/11/2018 SUBJECTIVE: Moe has difficulty breathing. Denies any chest pain, chills or sweats. He is getting his neb treatments as scheduled p.r.n. He needs more frequent nebs. OBJECTIVE: VITAL SIGNS: Sats are 98% on 2 liters, respirations , temperature 98, blood pressure 110/56. CHEST: Chest reveals decreased breath sounds, no wheezing. CARDIAC: Normal S1, S2, no gallops. ABDOMEN: Soft. LABORATORY DATA: He is growing Staph aureus. IMPRESSION: 1. Chronic obstructive pulmonary disease exacerbation, bronchitis. 2. Post-polio. 3. kyphoscoliosis. PLAN: Schedule neb treatments. Increase prednisone to 40 a day. Continue Dulera.
--- NOTE | 2018-03-11 20:01 | CON ---
DATE OF CONSULTATION: 03/11/2018 CARDIOLOGY CONSULTATION NOTE INDICATION FOR CONSULTATION: A 77-year-old patient with a history of palpitations and episodes of at rial fibrillation, nonsustained ventricular tachycardia, PVCs. HISTORY OF PRESENT ILLNESS: This gentleman has significant COPD with history of asthma and has had e xacerbations in the past, was recently admitted to the hospital back in January of this year, 018. Please refer to the notes dictated by Dr. Harry at that time. This gentleman has severe kyp hoscoliosis and has frequent episodes of COPD exacerbation. If he does not take his inhaler and half the dose has been decreased, then he will develop problems like he cannot breath. Even has a proble m if he is sitting in the bed and his legs were too elevated, there he also cannot breathe and he has noticed episodes. Recently he has been having more problems with lower extremity edema. He has bee n given IV Lasix and this does improve some of the edema. At this time, he has had some episodes sin ce being in the hospital with some PVCs and some short episodes of SVT and very short runs of nonsust ained ventricular tachycardia. He has been asymptomatic. He has been in the hospital previously and was seen by Dr. Harry for very similar episodes where he had some atrial flutter. He was given I V Cardizem and then followed by IV amiodarone and then apparently did not convert, I think he eventua lly underwent a possible ablation for his atrial flutter. He has had further episodes of atrial fibr illation, I believe, and then had again a repeat flutter ablation. He has been doing quite well sinc e that time. I did not see any evidence of atrial flutter at this time, but does have evidence of SV T. At this time, he is comfortable. He still continues to have some shortness of breath at times, b ut otherwise has been doing quite well. PAST MEDICAL HISTORY: Significant for the arrhythmias in the past. He has a history of COPD exacerb ation as well as CHF exacerbation. His last ejection fraction was about 40%-45%. He also has a hist ory in the past, also of occasional bradycardia as well as hypertension and obstructive sleep apnea a s well as his kyphoscoliosis. He had polio as a child. He has a history of diastolic heart failure. Also, he has had septic arthritis involving the left elbow. He has had a hernia repair. He has aragon d right forearm surgery, left elbow drainage to the MRSA. He has had radiofrequency ablation of the atrial flutter x2. MEDICATIONS: Included albuterol, Ventolin inhalers, he is on aspirin 81 mg a day, Lipitor 20 mg elvi y, Cartia 120 mg a day, Benadryl, Flonase nasal spray, Breo Ellipta, furosemide 40 mg a day, Claritin 10 mg a day and omeprazole. He is on laxatives and temazepam. ALLERGIES: IBUPROFEN. SOCIAL HISTORY: He smoked in the past, but no longer smokes. He stopped many, many years ago. He h as no alcohol use. He is able to ambulate, but has difficulties in sitting or doing routine daily ac tivities. He usually kneels next to his bed and uses this for a table and for a desk. FAMILY HISTORY: Noncontributory. REVIEW OF SYSTEMS: Other than the COPD exacerbation, his shortness of breath is unremarkable for the 12-point review of systems. PHYSICAL EXAMINATION: GENERAL: Reveals an elderly gentleman who is in no acute distress at this time. He is somewhat shor t of breath at times during the evaluation and discussions for his H&P, but otherwise is doing relati vely well. VITAL SIGNS: His blood pressure is 93/57, heart rate is 88 and at this time he appears to have a pac ed rhythm. He only had occasional ectopy during my evaluation. HEENT: Unremarkable. CHEST: Has decreased breath sounds throughout. He has a barrel-shaped chest. I do not hear any whe ezing at this time. Heart sounds shows a regular rate and rhythm at this time. He has S1, S2. I ca nnot hear an S3 or S4. Positive bowel sounds are present. EXTREMITIES: Indicate 1-2+ lower extremity edema. Popliteal pulses are present. Pedal pulses diffi cult to palpate, perhaps to the edema. NEUROLOGIC: The patient has no gross focal or motor deficits that I am aware of. He appears to be r elatively stable. LABORATORY DATA: His WBC is 8.2. Hemoglobin was 10.7, platelet count 179,000. His sodium is 139, p otassium is 3.6, blood sugar 104. His BNP is elevated at 2649 and troponin I was 0.057. At this liam e, he is on Lasix IV. His other medications during this admission also included Coreg as well as Las ix IV and lisinopril at least from cardiac medications. IMPRESSION: 1. Chronic obstructive pulmonary disease exacerbation. He has been followed by the forestry foreman. He seems to be having some improvement. 2. Nonsustained ventricular tachycardia as well as supraventricular tachycardia, most likely due to his chronic obstructive pulmonary disease exacerbation and also perhaps due to congestive heart failu re. He does have history of diastolic dysfunction. His last echocardiogram was performed on 018 which showed ejection fraction 30%-35% with significant or severe left atrial dilatation and mode rate mitral valve regurgitation, and mild tricuspid valve regurgitation. At this time, for his chron ic obstructive pulmonary disease and congestive heart failure exacerbation, I would continue the Core g if he can tolerate this. He is on Tikosyn and would continue this medication. He seems to be tole rating it relatively well. This seems to control his ventricular tachycardia and atrial fibrillation or flutter. Should he continue to have more significant arrhythmias, we will ask Electrophysiology to see him and to assist with medical management of these arrhythmias. 3. History of flutter in the past for which he has undergone ablations. I did not see any episodes of repeat flutter. 4. Underlying chronic obstructive pulmonary disease. This is again dealt with by the forestry foreman. 5. Hypertension. This is under good control at this time and actually he is somewhat hypotensive. 6. History of pulmonary hypertension. He is on oxygen 24/7. At this time, we will just continue to monitor him for any other significant arrhythmias. At this time, he is asymptomatic with the serenity lang. We will continue to follow him.
[2018-03-12] MEDS: Furosemide 20 MG/2 ML VIAL SLOW IVP SCH ×2 (06:10→14:44)
[2018-03-12] MEDS: Mometasone/Formoterol 120 PUFF INHALER INH SCH ×2 (07:40→19:10)
[2018-03-12] MEDS: Multivit, Therapeutic 1 TAB PO SCH (08:47)
[2018-03-12] MEDS: guaiFENesin ER 600 MG TAB PO SCH ×2 (08:47→20:02)
[2018-03-12] MEDS: predniSONE 20 MG TAB PO SCH ×2 (08:47→20:03)
[2018-03-12] MEDS: Loratadine 10 MG TAB PO SCH (08:47)
[2018-03-12] MEDS: Atorvastatin Calcium 20 MG TAB PO SCH (08:47)
[2018-03-12] MEDS: Dofetilide 0.125 MG CAP PO SCH ×2 (08:47→20:03)
[2018-03-12] MEDS: Famotidine 20 MG TAB PO SCH ×2 (08:47→20:02)
[2018-03-12] MEDS: Famotidine/PF 20 mg/2ml Vial SLOW IVP SCH ×2 (08:47→20:03)
[2018-03-12] MEDS: Carvedilol 3.125 MG TAB PO SCH ×2 (08:48→16:58)
[2018-03-12] MEDS: Lisinopril 2.5 MG TAB PO SCH (08:48)
--- NOTE | 2018-03-12 12:19 | PRG ---
DATE OF SERVICE: 03/12/2018 SUBJECTIVE: Mr. Rosa is a 77-year-old gentleman. This morning, he is better, less cough, less aryan rtness of breath, less wheezing. PHYSICAL EXAMINATION: VITAL SIGNS: Blood pressure is 95/52, pulse 103, temperature 97, sats are 97% on 2 liters. CHEST: Decreased breath sounds, no wheezing. CARDIAC: Normal S1, S2, no gallops. ABDOMEN: Soft, no masses. IMPRESSION: 1. Status post polio. 2. Sleep apnea. 3. Congestive heart failure. 4. Chronic obstructive pulmonary disease. PLAN: Continue neb treatments, supportive care and PT. We will follow.
--- NOTE | 2018-03-12 13:59 | PDOC.PN ---
- Subjective Encounter Start Date: 03/12/18 Encounter Start Time: 10:15 follow up for AECOPD, pulm HTN, SOB and acute on chornic hypoxemic resp failure No F/C, no N/V/D/C, no CP or sOB, no cough or sputum All systems reviewed and neg x as above - Objective Resuscitation Status: Resuscitation Status FULL:Full Resuscitation MAR Reviewed: Yes Vital Signs & Weight: Vital Signs (12 hours) Temp Pulse Resp BP BP BP Pulse Ox 03/12/18 13:56 81 20 94 L 03/12/18 11:44 98.2 F 92 17 104/65 97 03/12/18 08:48 103 H 95/52 L 03/12/18 07:55 96 03/12/18 07:39 103 H 20 96 03/12/18 07:19 97.9 F 96 32 H 105/55 L 91 L 03/12/18 06:07 71 22 H 98/45 L 108/57 L 100 03/12/18 04:28 98.0 F 82 25 H 95/52 L 98 03/12/18 03:02 101 H 16 95 Weight Admit Weight 162 lb 4.16 oz Weight 162 lb 4.163 oz I&O: 03/11/18 03/12/18 03/13/18 06:59 06:59 06:59 Intake Total 1472 2100 Output Total 2300 1818 Balance -828 282 Result Diagrams: 03/10/18 03:39 03/10/18 03:39 Phys Exam - Physical Examination Constitutional: NAD HEENT: PERRLA, moist MMs, sclera anicteric, oral pharynx no lesions Neck: no nodes, no JVD, supple, full ROM Respiratory: no wheezing, no rales, no rhonchi, clear to auscultation bilateral Cardiovascular: RRR, no significant murmur, no rub Gastrointestinal: soft, non-tender, no distention, positive bowel sounds Musculoskeletal: no edema, edema present Neurological: non-focal, normal sensation, moves all 4 limbs Lymphatic: no nodes Psychiatric: normal affect, A&O x 3 Skin: no rash, normal turgor, cap refill <2 seconds Dx/Plan (1) Acute and chronic respiratory failure with hypoxia Code(s): J96.21 - ACUTE AND CHRONIC RESPIRATORY FAILURE WITH HYPOXIA Status: Acute (2) Acute on chronic systolic heart failure Code(s): I50.23 - ACUTE ON CHRONIC SYSTOLIC (CONGESTIVE) HEART FAILURE Status : Acute Comment: EF 40-40% range - ACEI/ARB on hold due to hypotension (3) Atrial fibrillation with RVR Code(s): I48.91 - UNSPECIFIED ATRIAL FIBRILLATION Status: Acute (4) COPD exacerbation Code(s): J44.1 - CHRONIC OBSTRUCTIVE PULMONARY DISEASE W (ACUTE) EXACERBATION Status: Acute Comment: Improving, pt on oral steroids (5) Chronic systolic congestive heart failure, NYHA class 3 Code(s): I50.22 - CHRONIC SYSTOLIC (CONGESTIVE) HEART FAILURE Status: Acute (6) Chronic a-fib Code(s): I48.2 - CHRONIC ATRIAL FIBRILLATION Status: Chronic Comment: on anticoagulation (7) Kyphoscoliosis Code(s): M41.9 - SCOLIOSIS, UNSPECIFIED Status: Chronic Comment: stable (8) MADELINE (obstructive sleep apnea) Code(s): G47.33 - OBSTRUCTIVE SLEEP APNEA (ADULT) (PEDIATRIC) Status: Chronic Comment: on CPAP (9) Rheumatoid arthritis Code(s): M06.9 - RHEUMATOID ARTHRITIS, UNSPECIFIED Status: Chronic Qualifiers: Rheumatoid factor presence: with rheumatoid factor Laterality: unspecified laterality - Plan * .
[2018-03-13 04:10] LABS: #Basophils 0.1 thou/uL (0.0-0.2); #Lymphocytes 0.4 thou/uL (1.20-3.40); #Monocytes 0.5 thou/uL (0.11-0.59); #Neutrophils 6.9 thou/uL (1.40-6.50); %Basophils 0.7 % (0.0-1.0); %Eosinophils 0.3 % (0.0-10.0); %Lymphocytes 4.7 % (21.0-51.0); %Monocytes 6.2 % (0.0-10.0); %Neutrophils 88.1 % (42.0-75.0); Hemoglobin 12.2 g/dL (14.0-18.0); Mean Corpuscular HGB CONC 32.5 g/dL (32.0-36.0); Mean Platelet Volume 7.9 fL (7.4-10.4); Platelet Count 226 thou/uL (130-400); RBC Distribution Width 14.7 % (11.5-14.5); Red Blood Cell (RBC) Count 3.71 mill/uL (4.70-6.10); White Blood Cell (WBC) Count 7.8 thou/uL (4.8-10.8)
[2018-03-13 04:32] LABS: Anion Gap 12 mmol/L (10-20); BUN (Urea Nitrogen) 20 mg/dL (8.4-25.7); Calc. Creatinine Clearance 87 mL/min (70-130); Carbon Dioxide 32 mmol/L (23-31); Chloride 96 mmol/L (98-107); Estimated GFR-MDRD Greater than 90; Glucose 166 mg/dL (83-110); Magnesium 2.1 mg/dL (1.6-2.6); Potassium 3.7 mmol/L (3.5-5.1); Sodium 136 mmol/L (136-145)
[2018-03-13] MEDS: Furosemide 20 MG/2 ML VIAL SLOW IVP SCH ×2 (05:32→15:38)
[2018-03-13] MEDS: Mometasone/Formoterol 120 PUFF INHALER INH SCH ×2 (07:23→18:34)
[2018-03-13] MEDS: Carvedilol 3.125 MG TAB PO SCH (09:26)
[2018-03-13] MEDS: Multivit, Therapeutic 1 TAB PO SCH (09:26)
[2018-03-13] MEDS: Loratadine 10 MG TAB PO SCH (09:26)
[2018-03-13] MEDS: Famotidine 20 MG TAB PO SCH ×2 (09:26→20:51)
[2018-03-13] MEDS: guaiFENesin ER 600 MG TAB PO SCH ×2 (09:26→20:51)
[2018-03-13] MEDS: Atorvastatin Calcium 20 MG TAB PO SCH (09:26)
[2018-03-13] MEDS: predniSONE 20 MG TAB PO SCH ×2 (09:27→20:51)
[2018-03-13] MEDS: Dofetilide 0.125 MG CAP PO SCH ×2 (09:27→20:51)
[2018-03-13] MEDS: Famotidine/PF 20 mg/2ml Vial SLOW IVP SCH ×2 (09:28→20:53)
[2018-03-13] MEDS: Lisinopril 2.5 MG TAB PO SCH (09:28)
[2018-03-13] MEDS ORDERED: Dofetilide 0.125 MG CAP PO SCH (13:30)
--- NOTE | 2018-03-13 14:23 | PDOC.CTH ---
Cardiology Progress Note - Subjective EP progress note: Mr Rosa has returned after being discharged on 02/24/18. He returns for shortness of breath. He was taking his Albuterol inhaler multiple times a day and was told to cut back to no more than 1/day. This was not enough for him so he began taking it as he used to. He also began to notice swelling in his legs/ feet. He had a dual chamber defibrillator placed during his last hospitalization. He also has atrial arrhythmias with AFib and MAT. He has not had an ablation. He was loaded on Tikosyn 250mcg BID. He had QTc prolongation with 500mcg BID and the dose was reduced. His med list now reflects 125mcg BID. He also had hemoptysis and was placed on reduced dose Eliquis 2.5mg BID which is not on his computer home list but is reflected on his personal home medication list. Since being hospitalized, he has been diuresed for his CHF. BNP was >2000 on admission but has not been checked in days. He continues to have paroxysmal episodes of AT/AF with RVR on monitor but is asymptomatic with these. He is having less shortness of breath. Denies heart racing, palpitations, chest pain/pressure, syncope/near syncope, stroke, or perceived ICD discharges. Otherwise 8 point ROS is negative. - Objective Vital Signs Temp Pulse Resp BP BP BP Pulse Ox 03/13/18 12:42 107 H 20 100 03/13/18 11:01 99.0 F 84 17 104/59 L 96 03/13/18 09:28 129 H 103/72 03/13/18 07:30 98.8 F 129 H 16 108/75 99 03/13/18 07:21 107 H 24 H 100 03/13/18 05:31 85 20 100/57 L 100 03/13/18 03:51 98.4 F 92 20 99/60 100 Admit Weight 162 lb 4.16 oz Weight 156 lb 15.506 oz 03/12/18 03/13/18 03/14/18 06:59 06:59 06:59 Intake Total 2100 1332 Output Total 1818 1950 Balance 282 -618 - Physical Examination General/Neuro: alert & oriented x3, NAD Neck: carotid US brisk, no JVD present Lungs: CTA, unlabored respirations Heart: PMI normal Abdomen: NT/ND, soft - Telemetry Telemetry Rhythm: SR with ectopy - Labs Result Diagrams: 03/13/18 03:40 03/13/18 03:40 Troponin/CKMB CK-MB (CK-2) 4.2 ng/mL (0-6.6) 03/08/18 17:27 Troponin I 0.057 ng/mL (< 0.028) H 03/08/18 17:27 - Assessment/Plan Assessment/Plan: 1. Paroxysmal Atrial arrhythmias (MAT and atypical flutter) -No in Sinus rhythm. QTc stable. Discharged on Tikosyn 250mcg BID but now on 125mcg BID. Will increase dose and monitor QTc with dose adjustment. -asymptomatic. -poor candidate for PVAI with his severe kyphosis. No typical flutter seen. -Stopping coreg in favor of metoprolol which is more cardio selective. Diltiazem can potentiate Tikosyn so this will be avoided for rate control. 2. Frequent PVC 3. Chronic cardiomyopathy 4. Congestive heart failure -had SOB and peripheral edema. Both resolving with diuresing -will recheck BNP in AM 5. Dual Chamber ICD -incision healing well without infection or signs of complication. Missed wound/device check appointment. Will have device checked later today. 6. CHADS2-VASC: 4 - on low dose eliquis. Resuming this home medication tonight. Continue reduced dose with his recent hemoptysis and bruising issues. 7. COPD exacerbation - Relies heavily on his albuterol inhaler which will antagonize atrial arrhythmias. 8. Hypotension -transient and likely related to diuresing with lasix.
--- NOTE | 2018-03-13 16:16 | PDOC.PN ---
- Subjective Encounter Start Date: 03/13/18 Encounter Start Time: 14:25 Subjective: f/u for A-fib/flutter, systolic CHF and COPD. Feels better overall with -: less SOB. - Objective Resuscitation Status: Resuscitation Status FULL:Full Resuscitation MAR Reviewed: Yes Vital Signs & Weight: Vital Signs (12 hours) Temp Pulse Resp BP BP BP Pulse Ox 03/13/18 15:39 99.4 F 96 19 97/64 100 03/13/18 12:42 107 H 20 100 03/13/18 11:01 99.0 F 84 17 104/59 L 96 03/13/18 09:28 129 H 103/72 03/13/18 07:30 98.8 F 129 H 16 108/75 99 03/13/18 07:21 107 H 24 H 100 03/13/18 05:31 85 20 100/57 L 100 Weight Admit Weight 162 lb 4.16 oz Weight 156 lb 15.506 oz I&O: 03/12/18 03/13/18 03/14/18 06:59 06:59 06:59 Intake Total 2100 1332 Output Total 1818 1950 Balance 282 -618 Result Diagrams: 03/13/18 03:40 03/13/18 03:40 EKG Reviewed by me: Yes (Tele - SR with MAT) Phys Exam - Physical Examination Constitutional: NAD HEENT: PERRLA, sclera anicteric, oral pharynx no lesions Neck: no nodes, no JVD, supple, full ROM diminished in bases Respiratory: clear to auscultation bilateral I/ LULY LUSB Cardiovascular: RRR, no rub, gallop Gastrointestinal: soft, non-tender, no distention, positive bowel sounds Musculoskeletal: pulses present, edema present Neurological: moves all 4 limbs Psychiatric: A&O x 3 Skin: no rash, normal turgor, cap refill <2 seconds Dx/Plan (1) Acute and chronic respiratory failure with hypoxia Code(s): J96.21 - ACUTE AND CHRONIC RESPIRATORY FAILURE WITH HYPOXIA Status: Acute Comment: Improved, continue O2 support via NC, pulmonary supportive measures (2) Acute on chronic systolic heart failure Code(s): I50.23 - ACUTE ON CHRONIC SYSTOLIC (CONGESTIVE) HEART FAILURE Status : Acute Comment: EF 30-35%, AICD in place, Lasix 20mg IV BID (3) Atrial flutter Code(s): I48.92 - UNSPECIFIED ATRIAL FLUTTER Status: Acute Comment: Tikosyn 250mcg daily (4) Atrial fibrillation with RVR Code(s): I48.91 - UNSPECIFIED ATRIAL FIBRILLATION Status: Chronic Comment: Continue Tikosyn, Metoprolol, Eliquis (5) MADELINE (obstructive sleep apnea) Code(s): G47.33 - OBSTRUCTIVE SLEEP APNEA (ADULT) (PEDIATRIC) Status: Chronic Comment: Nocturnal CPAP - Plan PT/OT, social work therapist, respiratory therapy Stable overall -: Continue Metoprolol -: Continue Eliquis -: Continue Lasix IV another 24h then convert to po -: Continue Duonebs, Prednisone, Dulera * .
--- NOTE | 2018-03-13 17:13 | PRG ---
DATE OF SERVICE: 03/13/2018 SUBJECTIVE: He says he is feeling better. OBJECTIVE: VITAL SIGNS: He is afebrile, heart rate 82, 107 this afternoon, is up to 129 this morning; respiratory rate 15; oximetry is 96-100 on 2 liters; blood pressure 104/59. He did not like our CPAP device, as he said it did not provide any humidity for him, so he is back to using his CPAP with nasal pillows. LUNGS: Clear. HEART: Regular rhythm. ABDOMEN: Soft. LABORATORY DATA: White count 7.8, hemoglobin 12.2, platelets 226. Sodium 136, potassium 3.7, chloride 96, bicarbonate 32, BUN 20, creatinine 0.74. IMPRESSION: 1. Asthma. 2. Post-polio syndrome with severe kyphoscoliosis. 3. Sleep apnea, compliant with CPAP. 4. Cardiomyopathy. PLAN: Continue with current care. Continue to increase activity level. Hopefully he will stabilze and can go for rehab in near future. He is currently being followed by Electrophysiology. He is still having atrial arrhythmias. JOSEFA
[2018-03-13] MEDS: Apixaban 5 MG TAB PO SCH (20:50)
[2018-03-13] MEDS: Metoprolol Tartrate 25 MG TAB PO SCH (20:51)
[2018-03-14] MEDS: Furosemide 20 MG/2 ML VIAL SLOW IVP SCH ×2 (05:17→14:03)
[2018-03-14] MEDS: Mometasone/Formoterol 120 PUFF INHALER INH SCH ×2 (07:05→18:45)
[2018-03-14] MEDS: Famotidine/PF 20 mg/2ml Vial SLOW IVP SCH ×2 (09:02→20:50)
[2018-03-14] MEDS: Dofetilide 0.125 MG CAP PO SCH ×2 (09:09→20:49)
[2018-03-14] MEDS: Apixaban 5 MG TAB PO SCH ×2 (09:10→20:47)
[2018-03-14] MEDS: predniSONE 20 MG TAB PO SCH ×2 (09:10→20:47)
[2018-03-14] MEDS: Loratadine 10 MG TAB PO SCH (09:10)
[2018-03-14] MEDS: guaiFENesin ER 600 MG TAB PO SCH ×2 (09:11→20:46)
[2018-03-14] MEDS: Famotidine 20 MG TAB PO SCH ×2 (09:11→20:47)
[2018-03-14] MEDS: Multivit, Therapeutic 1 TAB PO SCH (09:11)
[2018-03-14] MEDS: Atorvastatin Calcium 20 MG TAB PO SCH (09:11)
[2018-03-14] MEDS: Metoprolol Tartrate 25 MG TAB PO SCH ×2 (09:16→20:47)
--- NOTE | 2018-03-14 12:00 | PRG ---
DATE OF SERVICE: 03/14/2018 Jordy Rosa is feeling about the same. He has not been ambulating. CPT was consulted today. PHYSICAL EXAMINATION: VITAL SIGNS: He is afebrile, heart rate 83, respiratory rate 20, oximetry is 100% on room air. LUNGS: Clear. HEART: Regular rhythm. ABDOMEN: Soft. EXTREMITIES: Without asymmetry. IMPRESSION: 1. Asthma. 2. Congestive heart failure. 3. Atrial fibrillation that is recurrent. PLAN: Continue supportive care. In my opinion, it appears that he is at a point where he could be followed as an outpatient. 1. His other problems include Tikosyn prolonged QT at a higher dose ,QT is stable now. 2. Status post placement of a dual chamber defibrillator. 3. Deconditioning. 4. Postpolio syndrome. We will see how he does with ambulation today. JOSEFA
--- NOTE | 2018-03-14 13:52 | PDOC.CTH ---
<Pippa Berman - Last Filed: 03/14/18 14:06> Cardiology Progress Note - Subjective EP progress note: Mr Rosa is feeling somewhat better with less shortness of breath. Remains asymptomatic with atrial arrhythmias. - Objective Vital Signs Temp Pulse Resp BP BP BP Pulse Ox 03/14/18 12:03 85 18 100 03/14/18 12:00 78 125/53 L 03/14/18 11:11 97.6 F 83 20 100/51 L 100 03/14/18 07:44 100 03/14/18 07:27 98.3 F 91 18 100/44 L 100 03/14/18 07:05 91 16 100 03/14/18 07:03 91 16 100 03/14/18 05:12 87 97/47 L 03/14/18 04:23 98.3 F 71 16 121/68 93 L Admit Weight 162 lb 4.16 oz Weight 154 lb 15.759 oz 03/13/18 03/14/18 03/15/18 06:59 06:59 06:59 Intake Total 1332 1140 320 Output Total 1950 2875 Balance -618 -1735 320 - Physical Examination General/Neuro: NAD Neck: carotid US brisk, no JVD present Lungs: CTA, unlabored respirations Heart: PMI normal Abdomen: NT/ND, soft - Telemetry Telemetry Rhythm: SR with ectopy - Labs Result Diagrams: 03/13/18 03:40 03/13/18 03:40 Troponin/CKMB CK-MB (CK-2) 4.2 ng/mL (0-6.6) 03/08/18 17:27 Troponin I 0.057 ng/mL (< 0.028) H 03/08/18 17:27 - Assessment/Plan Assessment/Plan: 1. Paroxysmal Atrial arrhythmias (MAT and atypical flutter) -No in Sinus rhythm. QTc stable. Discharged on Tikosyn 250mcg BID but now on 125mcg BID. Will increase dose and monitor QTc with dose adjustment. -QTc 466ms today (baseline EKG reads 499ms) -asymptomatic. -poor candidate for PVAI with his severe kyphosis. No typical flutter seen. -Stopping coreg in favor of metoprolol which is more cardio selective. Diltiazem can potentiate Tikosyn so this will be avoided for rate control. -s/p CTI ablation on 03/10/[address] Garcia 2. Frequent PVC 3. Chronic cardiomyopathy 4. Congestive heart failure - SOB and peripheral edema - BNP now >3000 5. Dual Chamber ICD -incision healing well without infection or signs of complication. Missed wound/device check appointment. - Device check showed episode of rapid VF successfully terminated with shock. Amiodarone should be avoided with his COPD. Increase beta blockers as tolerated. 6. CHADS2-VASC: 4 - on low dose eliquis. Resuming this home medication tonight. Continue reduced dose with his recent hemoptysis and bruising issues. 7. COPD exacerbation - Relies heavily on his albuterol inhaler which will antagonize atrial arrhythmias. 8. Hypotension -transient and likely related to diuresing with lasix. <Jovon Arora - Last Filed: 03/14/18 14:56> Cardiology Progress Note - Objective Vital Signs Temp Pulse Resp BP BP BP Pulse Ox 03/14/18 14:04 81 20 91/51 L 100 03/14/18 12:03 85 18 100 03/14/18 12:00 78 125/53 L 03/14/18 11:11 97.6 F 83 20 100/51 L 100 03/14/18 07:44 100 03/14/18 07:27 98.3 F 91 18 100/44 L 100 03/14/18 07:05 91 16 100 03/14/18 07:03 91 16 100 03/14/18 05:12 87 97/47 L 03/14/18 04:23 98.3 F 71 16 121/68 93 L Admit Weight 162 lb 4.16 oz Weight 154 lb 15.759 oz 03/13/18 03/14/18 03/15/18 06:59 06:59 06:59 Intake Total 1332 1140 320 Output Total 8957 2875 Balance -098 -8396 320 - Labs Result Diagrams: 03/13/18 03:40 03/13/18 03:40 Troponin/CKMB CK-MB (CK-2) 4.2 ng/mL (0-6.6) 03/08/18 17:27 Troponin I 0.057 ng/mL (< 0.028) H 03/08/18 17:27 Attending Addendum - Attending Addendum Date/Time: 03/14/18 1455 I personally evaluated the patient and discussed the management with Ms Berman. I agree with the History, Examination, Assessment and Plan documented above with any addition or exceptions noted below. Single VF episode on 03/06. Shock terminated, but asymptomatic at night. Not torside like on EGMs. Will uptitrate BB.
[2018-03-14] MEDS ORDERED: Furosemide 20 MG TAB PO SCH (15:00)
--- NOTE | 2018-03-14 16:22 | PDOC.PN ---
- Subjective Encounter Start Date: 03/14/18 Encounter Start Time: 16:15 Subjective: f/u for A-fib/flutter on Tikosyn and Metoprolol with rate controlled. Feels -: better and less SOB. Converted to po Lasix with 8lb weight loss since admit - Objective Resuscitation Status: Resuscitation Status FULL:Full Resuscitation MAR Reviewed: Yes Vital Signs & Weight: Vital Signs (12 hours) Temp Pulse Resp BP BP BP Pulse Ox 03/14/18 14:59 98.4 F 88 20 103/64 100 03/14/18 14:04 81 20 91/51 L 100 03/14/18 12:03 85 18 100 03/14/18 12:00 78 125/53 L 03/14/18 11:11 97.6 F 83 20 100/51 L 100 03/14/18 07:44 100 03/14/18 07:27 98.3 F 91 18 100/44 L 100 03/14/18 07:05 91 16 100 03/14/18 07:03 91 16 100 03/14/18 05:12 87 97/47 L 03/14/18 04:23 98.3 F 71 16 121/68 93 L Weight Admit Weight 162 lb 4.16 oz Weight 154 lb 15.759 oz I&O: 03/13/18 03/14/18 03/15/18 06:59 06:59 06:59 Intake Total 1332 1140 440 Output Total 1950 2875 Balance -819 -1164 440 Result Diagrams: 03/13/18 03:40 03/13/18 03:40 EKG Reviewed by me: Yes (Tele - SR in PVC's) Phys Exam - Physical Examination Constitutional: NAD alert, responsive HEENT: PERRLA, sclera anicteric, oral pharynx no lesions Neck: no nodes, no JVD, supple, full ROM I/ LULY, S1, S2 Cardiovascular: RRR, no rub, gallop Gastrointestinal: soft, non-tender, no distention, positive bowel sounds mild peripheral edema Musculoskeletal: pulses present Neurological: normal sensation, moves all 4 limbs Psychiatric: A&O x 3 Skin: normal turgor, cap refill <2 seconds Deviation from normal: Bernabe with clear urine Dx/Plan (1) Acute and chronic respiratory failure with hypoxia Code(s): J96.21 - ACUTE AND CHRONIC RESPIRATORY FAILURE WITH HYPOXIA Status: Acute Comment: Improved, continue O2 support via NC, pulmonary supportive measures (2) Acute on chronic systolic heart failure Code(s): I50.23 - ACUTE ON CHRONIC SYSTOLIC (CONGESTIVE) HEART FAILURE Status : Acute Comment: EF 30-35%, AICD in place, Lasix 20mg po BID (3) Atrial flutter Code(s): I48.92 - UNSPECIFIED ATRIAL FLUTTER Status: Acute Comment: Tikosyn 250mcg daily (4) Atrial fibrillation with RVR Code(s): I48.91 - UNSPECIFIED ATRIAL FIBRILLATION Status: Chronic Comment: Continue Tikosyn, Metoprolol, Eliquis (5) MADELINE (obstructive sleep apnea) Code(s): G47.33 - OBSTRUCTIVE SLEEP APNEA (ADULT) (PEDIATRIC) Status: Chronic Comment: Nocturnal CPAP - Plan social worker, respiratory therapy Stable currently -: Continue Lasix 20mg BID -: Continue Tikosyn and Metoprolol -: Pulmonary supportive measures -: Nocturnal CPAP * Likely home 03/15/18
[2018-03-15 05:48] LABS: BUN (Urea Nitrogen) 18 mg/dL (8.4-25.7); Calc. Creatinine Clearance 95 mL/min (70-130); Calcium 9.4 mg/dL (7.8-10.44); Estimated GFR-MDRD Greater than 90; Glucose 101 mg/dL (83-110)
[2018-03-15 05:57] LABS: Anion Gap 12 mmol/L (10-20); Carbon Dioxide 36 mmol/L (23-31); Chloride 95 mmol/L (98-107); Potassium 4.1 mmol/L (3.5-5.1); Sodium 139 mmol/L (136-145)
[2018-03-15] MEDS ORDERED: Furosemide 20 MG TAB PO SCH (06:00)
[2018-03-15] MEDS ORDERED: Metoprolol Tartrate 5 MG/5 ML VIAL ONE (07:24)
[2018-03-15] MEDS ORDERED: Metoprolol Tartrate 5 MG/5 ML VIAL IVP SCH (07:45)
[2018-03-15] MEDS ORDERED: Metoprolol Tartrate 25 MG TAB PO SCH (07:45)
[2018-03-15] MEDS: Mometasone/Formoterol 120 PUFF INHALER INH SCH ×2 (07:54→18:37)
[2018-03-15] MEDS ORDERED: Acetaminophen 500 MG TAB PO PRN ×2 (08:19→20:39)
[2018-03-15] MEDS: Apixaban 5 MG TAB PO SCH (08:20)
[2018-03-15] MEDS: Famotidine 20 MG TAB PO SCH ×2 (08:21→20:59)
[2018-03-15] MEDS: Multivit, Therapeutic 1 TAB PO SCH (08:21)
[2018-03-15] MEDS: predniSONE 20 MG TAB PO SCH ×2 (08:21→20:59)
[2018-03-15] MEDS: Atorvastatin Calcium 20 MG TAB PO SCH (08:21)
[2018-03-15] MEDS: Famotidine/PF 20 mg/2ml Vial SLOW IVP SCH ×3 (08:21→22:40)
[2018-03-15] MEDS: Loratadine 10 MG TAB PO SCH (08:21)
[2018-03-15] MEDS: guaiFENesin ER 600 MG TAB PO SCH ×2 (08:21→20:59)
[2018-03-15] MEDS ORDERED: Vancomycin HCl 1 GM in Premix Bag 1 BAG IVPB SCH (08:30)
[2018-03-15] MEDS ORDERED: Acetaminophen 500 MG TAB PO SCH (08:30)
[2018-03-15] MEDS ORDERED: Furosemide 20 MG/2 ML VIAL SLOW IVP SCH (08:45)
[2018-03-15] MEDS: Dofetilide 0.125 MG CAP PO SCH ×2 (09:38→20:59)
[2018-03-15] MEDS: Metoprolol Tartrate 25 MG TAB PO SCH ×2 (09:40→20:59)
[2018-03-15 09:48] LABS: ALT (SGPT) 20 U/L (8-55); AST (SGOT) 27 U/L (5-34); Albumin 3.2 g/dL (3.4-4.8); Alkaline Phosphatase 68 U/L (40-150); Anion Gap 10 mmol/L (10-20); BUN (Urea Nitrogen) 22 mg/dL (8.4-25.7); Bilirubin, Total 1.7 mg/dL (0.2-1.2); Calc. Creatinine Clearance 81 mL/min (70-130); Calcium 9.6 mg/dL (7.8-10.44); Carbon Dioxide 35 mmol/L (23-31); Chloride 96 mmol/L (98-107); Estimated GFR-MDRD Greater than 90; Globulin 2.2 g/dL (2.4-3.5); Glucose 108 mg/dL (83-110); Potassium 4.3 mmol/L (3.5-5.1); Protein, Total 5.4 g/dL (5.8-8.1); Sodium 137 mmol/L (136-145)
[2018-03-15] MEDS ORDERED: Piperacillin/Tazobactam 3.375 GM in Sodium Chloride 0.9% 100 ML IVPB SCH (10:00)
[2018-03-15 10:41] LABS: Hemoglobin 13.2 g/dL (14.0-18.0); Mean Corpuscular HGB CONC 30.7 g/dL (32.0-36.0); Mean Corpuscular Hemoglobin 31.5 pg (27.0-31.0); Platelet Count 217 thou/uL (130-400)
[2018-03-15 10:52] LABS: Band 18 % (5-11); Lymphocytes 6 % (21-51); MDiff Complete? YES; Macrocytosis SLIGHT = 6-15 cells (100X) (0-5/hpf); Monocytes 4 % (0-10); Neutrophil 67 % (42-75); PLT Morphology Comment Appears Adequate; Reactive Lymphocytes 4 % (0-10)
--- NOTE | 2018-03-15 11:08 | PDOC.PN ---
- Subjective Encounter Start Date: 03/15/18 Encounter Start Time: 11:00 Subjective: f/u for CHF, A-fib/flutter on Tikosyn, Metoprolol. Rate variable but nursin -: reports fever 102F and meeting sepsis criteria. Feels ok currently -: but some cough. - Objective Resuscitation Status: Resuscitation Status FULL:Full Resuscitation MAR Reviewed: Yes Vital Signs & Weight: Vital Signs (12 hours) Temp Pulse Resp BP BP Pulse Ox 03/15/18 08:00 97 03/15/18 07:54 118 H 22 H 93 L 03/15/18 07:37 102.2 F H 109 H 21 H 118/75 97 03/15/18 06:55 130 H 26 H 97 03/15/18 03:58 98.8 F 96 20 85/56 L 100 03/15/18 00:18 90 16 93 L 03/14/18 23:48 97.9 F 89 20 119/53 L 97 Weight Admit Weight 162 lb 4.16 oz Weight 156 lb I&O: 03/14/18 03/15/18 03/16/18 06:59 06:59 06:59 Intake Total 1140 1580 Output Total 2875 1600 Balance -1735 -20 Result Diagrams: 03/15/18 09:14 03/15/18 09:14 Additional Labs: Laboratory Tests 03/08/18 03/13/18 03/14/18 17:27 03:40 03:59 WBC 7.8 Hgb 12.2 L Band Neuts % (Manual) B-Natriuretic Peptide 2649.5 H 3098.6 H 03/15/18 09:14 WBC Hgb Band Neuts % (Manual) 18 H B-Natriuretic Peptide EKG Reviewed by me: Yes (Tele - A-fib in 80's) Phys Exam - Physical Examination Constitutional: NAD alert, responsive HEENT: PERRLA, sclera anicteric, oral pharynx no lesions Neck: no nodes, no JVD, supple, full ROM diminished in bases Respiratory: no wheezing, no rales S1, S2 Cardiovascular: no rub, gallop, irregular Gastrointestinal: soft, non-tender, no distention, positive bowel sounds pedal edema bilat Musculoskeletal: pulses present Neurological: normal sensation, moves all 4 limbs Psychiatric: A&O x 3 Skin: normal turgor, cap refill <2 seconds Dx/Plan (1) Sepsis Code(s): A41.9 - SEPSIS, UNSPECIFIED ORGANISM Status: Acute Comment: Suspected, start Vancomycin/Zosyn empirically, Blood/Ucx pending, exact source unclear (2) Acute and chronic respiratory failure with hypoxia Code(s): J96.21 - ACUTE AND CHRONIC RESPIRATORY FAILURE WITH HYPOXIA Status: Acute Comment: Improved, continue O2 support via NC, pulmonary supportive measures (3) Acute on chronic systolic heart failure Code(s): I50.23 - ACUTE ON CHRONIC SYSTOLIC (CONGESTIVE) HEART FAILURE Status : Acute Comment: EF 30-35%, AICD in place, Lasix 20mg po BID (4) Atrial flutter Code(s): I48.92 - UNSPECIFIED ATRIAL FLUTTER Status: Acute Comment: Tikosyn 250mcg daily (5) Atrial fibrillation with RVR Code(s): I48.91 - UNSPECIFIED ATRIAL FIBRILLATION Status: Chronic Comment: Continue Tikosyn, Metoprolol, Eliquis (6) MADELINE (obstructive sleep apnea) Code(s): G47.33 - OBSTRUCTIVE SLEEP APNEA (ADULT) (PEDIATRIC) Status: Chronic Comment: Nocturnal CPAP - Plan continue antibiotics, PT/OT, school social worker Continue empiric abx with Vancomycin/Zosyn -: Blood/Ucx pending -: PCXR today -: Continue Prednisone 20mg BID -: AM lab: BMP, CBC * .
[2018-03-15 11:38] VITALS: BMI 25.2
--- NOTE | 2018-03-15 13:42 | EKG ---
Test Reason : Blood Pressure : / mmHG Vent. Rate : 103 BPM Atrial Rate : 103 BPM P-R Int : 152 ms QRS Dur : 110 ms QT Int : 376 ms P-R-T Axes : 076 -46 -73 degrees QTc Int : 492 ms Sinus tachycardia with occasional Premature ventricular complexes Left axis deviation Incomplete right bundle branch block T wave inversion in anterior leads present on old EKG from 13-FEB-2018 Abnormal ECG Confirmed by ADELIA RACHEL ([id number]), associate entertainment editor WILLARD BANERJEE ([id number]) on 03/15/2018 1:42:25 PM Referred By: Confirmed By:ADELIA RACHEL
[2018-03-15] MEDS ORDERED: Furosemide 40 MG TAB PO SCH (14:00)
--- NOTE | 2018-03-15 14:05 | PRG ---
DATE OF SERVICE: 03/15/2018 SUBJECTIVE: Mr. Rosa had a bad morning. This morning, he apparently went into rapid atrial fibril lation, became extremely dyspneic, could not even talk. He also had a temperature elevation this mor vianey about the same time. He is much better now. In fact, he did not even tell me about that episod e, probably because he wants to go home. The nursing staff tells me about his episode. OBJECTIVE: On exam, he was wheezing when I evaluated him. Chest x-ray was done at 11:30. Chest radiograph is suggestive of pulmonary edema this morning. Dr. Harry started him back on Lasix. IMPRESSION AND PLAN: 1. Congestive heart failure. 2. Rapid atrial fibrillation aggravating his congestive heart failure. 3. Asthma, clinically appears to be stable. He is not stable enough for discharge in my opinion. Jessica matta will continue to follow.
--- NOTE | 2018-03-15 14:06 | RAD ---
FRONTAL VIEW CHEST: Comparison: 02-22-18 Clinical history: Sepsis. FINDINGS: There remains marked enlargement of the cardiomediastinal silhouette. Progressive density of the righ t hemithorax is present, predominately in a perihilar distribution. There remains patchy left perihil ar opacification. Pleural based densities are seen at the lower chest bilaterally. Left sided AICD is again noted. There are multiple right rib deformities. IMPRESSION: 1. Progressive bilateral opacification which may relate to edema versus pneumonia. 2. Superimposed pleural fluid is present and there is marked cardiomegaly with engorgement of the pul monary vasculature. 3. Numerous right rib deformities. POS: NWK
[2018-03-15 14:55] LABS: Bilirubin Negative (Negative); Blood, Urine Negative (Negative); Clarity CLEAR (Clear); Glucose, Urine (Dipstick) Negative (Negative); Leukocyte Negative (Negative); Nitrite Negative (Negative); Protein, Urine (Dipstick) Negative (Neg-Trace); Specific Gravity, Urine 1.008 (1.002-1.036); pH, Urine 6.5 (5.0-9.0)
[2018-03-15] MEDS ORDERED: diphenhydrAMINE 25 MG CAP PO PRN (20:35)
[2018-03-15] MEDS ORDERED: Temazepam 15 MG CAP PO PRN (20:35)
[2018-03-15] MEDS ORDERED: Senokot 8.6 MG TAB PO PRN (20:35)
[2018-03-15] MEDS ORDERED: traZODone HCl 50 MG TAB PO PRN (20:36)
[2018-03-15] MEDS ORDERED: Albuterol Sulfate 2.5 mg/3 ml Neb NEB PRN (20:37)
[2018-03-15] MEDS: Apixaban 2.5 MG TAB PO SCH (20:58)
[2018-03-15] MEDS ORDERED: Sodium Chloride 0.9% 500 ML IVPB SCH (22:45)
[2018-03-16] MEDS ORDERED: Vancomycin HCl 1.5 GM in Sodium Chloride 0.9% 250 ML 300 ML IVPB SCH (00:15)
[2018-03-16 01:13] LABS: #Lymphocytes 0.5 thou/uL (1.20-3.40); #Monocytes 1.1 thou/uL (0.11-0.59); #Neutrophils 14.5 thou/uL (1.40-6.50); %Eosinophils 0.1 % (0.0-10.0); %Lymphocytes 3.1 % (21.0-51.0); %Monocytes 7.1 % (0.0-10.0); %Neutrophils 89.7 % (42.0-75.0); Hemoglobin 11.2 g/dL (14.0-18.0); Mean Corpuscular HGB CONC 31.1 g/dL (32.0-36.0); Mean Corpuscular Hemoglobin 31.9 pg (27.0-31.0); Mean Platelet Volume 7.7 fL (7.4-10.4); Platelet Count 180 thou/uL (130-400); RBC Distribution Width 14.6 % (11.5-14.5); Red Blood Cell (RBC) Count 3.49 mill/uL (4.70-6.10); White Blood Cell (WBC) Count 16.2 thou/uL (4.8-10.8)
[2018-03-16] MEDS: Sodium Chloride 0.9% 1,000 ML IV SCH ×2 (03:12→19:00)
[2018-03-16] MEDS: Mometasone/Formoterol 120 PUFF INHALER INH SCH ×2 (08:17→19:15)
--- NOTE | 2018-03-16 08:56 | PDOC.PN ---
- Subjective Encounter Start Date: 03/16/18 Encounter Start Time: 08:45 Subjective: f/u for sepsis with MRSA + bacteremia tx with Vancomycin/Zosyn. -: Slept good overnight. No new complaints. - Objective Resuscitation Status: Resuscitation Status FULL:Full Resuscitation MAR Reviewed: Yes Vital Signs & Weight: Vital Signs (12 hours) Temp Pulse Resp BP BP BP BP 03/16/18 08:15 91 18 03/16/18 07:27 98.5 F 75 16 95/47 L 03/16/18 04:22 98.0 F 81 21 H 112/66 03/16/18 01:13 76 18 03/16/18 00:26 98.1 F 94 22 H 100/57 L 03/15/18 23:36 93/46 L 03/15/18 22:49 86/46 L 03/15/18 22:19 81/39 L 03/15/18 22:15 67/37 L 03/15/18 22:05 80/43 L 03/15/18 21:00 91/44 L Pulse Ox 03/16/18 08:15 97 03/16/18 07:27 97 03/16/18 04:22 92 L 03/16/18 01:13 95 03/16/18 00:26 93 L 03/15/18 23:36 03/15/18 22:49 03/15/18 22:19 03/15/18 22:15 03/15/18 22:05 03/15/18 21:00 Weight Admit Weight 162 lb 4.16 oz Weight 157 lb 3.033 oz I&O: 03/15/18 03/16/18 03/17/18 06:59 06:59 06:59 Intake Total 1580 1002 Output Total 1600 950 Balance -20 52 Result Diagrams: 03/16/18 01:04 03/15/18 09:14 Additional Labs: Microbiology 03/15/18 09:14 Venous blood - Right Hand Blood Culture - Preliminary Methicillin resistant S.aureus 03/15/18 09:09 Venous blood - Left Hand Blood Culture - Preliminary Staphylococcus aureus Laboratory Tests 03/08/18 03/13/18 03/14/18 17:27 03:40 03:59 WBC 7.8 Hgb 12.2 L Neutrophils % Band Neuts % (Manual) B-Natriuretic Peptide 2649.5 H 3098.6 H 03/15/18 03/16/18 09:14 01:04 WBC 16.0 H Hgb 13.2 L Neutrophils % 89.7 H Band Neuts % (Manual) 18 H B-Natriuretic Peptide Radiology Reviewed by me: Yes (PCXR - patchy bilateral opacities, cardiomegaly, + AICD) EKG Reviewed by me: Yes (Tele - A-fib RVR) Phys Exam - Physical Examination Constitutional: NAD alert, responsive HEENT: PERRLA, sclera anicteric, oral pharynx no lesions Neck: no nodes, no JVD, supple, full ROM diminished in bases tachycardic S1, S2 Cardiovascular: no rub, gallop, irregular Gastrointestinal: soft, non-tender, no distention, positive bowel sounds pedal edema noted Musculoskeletal: pulses present, edema present Neurological: normal sensation, moves all 4 limbs Psychiatric: A&O x 3 Skin: normal turgor, cap refill <2 seconds Dx/Plan (1) Sepsis Code(s): A41.9 - SEPSIS, UNSPECIFIED ORGANISM Status: Acute Comment: Suspected, start Vancomycin/Zosyn empirically, MRSA noted on blood cx, continue Vanc/Zosyn pending final sensitivities (2) Acute and chronic respiratory failure with hypoxia Code(s): J96.21 - ACUTE AND CHRONIC RESPIRATORY FAILURE WITH HYPOXIA Status: Acute Comment: Improved, continue O2 support via NC, pulmonary supportive measures (3) Acute on chronic systolic heart failure Code(s): I50.23 - ACUTE ON CHRONIC SYSTOLIC (CONGESTIVE) HEART FAILURE Status : Acute Comment: EF 30-35%, AICD in place, Lasix 20mg po BID (4) Atrial flutter Code(s): I48.92 - UNSPECIFIED ATRIAL FLUTTER Status: Acute Comment: Tikosyn 250mcg daily, rate variable (5) Atrial fibrillation with RVR Code(s): I48.91 - UNSPECIFIED ATRIAL FIBRILLATION Status: Chronic Comment: Continue Tikosyn, Metoprolol, Eliquis, rate variable, may need additional Digoxin (6) MADELINE (obstructive sleep apnea) Code(s): G47.33 - OBSTRUCTIVE SLEEP APNEA (ADULT) (PEDIATRIC) Status: Chronic Comment: Nocturnal CPAP - Plan continue antibiotics, PT/OT, social services designee, respiratory therapy continue Vancomycin/Zosyn pending final blood cx sensitivities -: May need additional rate control agent given tachycardia -: Continue Prednisone 20mg BID -: Nocturnal CPAP -: AM lab: BMP, CBC * .
[2018-03-16] MEDS: Apixaban 2.5 MG TAB PO SCH ×2 (09:31→20:13)
[2018-03-16] MEDS: Dofetilide 0.125 MG CAP PO SCH ×2 (09:31→20:13)
[2018-03-16] MEDS: Piperacillin/Tazobactam 3.375 GM in Sodium Chloride 0.9% 100 ML IVPB SCH ×3 (09:31→22:43)
[2018-03-16] MEDS: guaiFENesin ER 600 MG TAB PO SCH ×2 (09:32→20:13)
[2018-03-16] MEDS: predniSONE 20 MG TAB PO SCH ×2 (09:32→20:13)
[2018-03-16] MEDS: Famotidine 20 MG TAB PO SCH ×2 (09:32→20:13)
[2018-03-16] MEDS: Atorvastatin Calcium 20 MG TAB PO SCH (09:32)
[2018-03-16] MEDS: Metoprolol Tartrate 25 MG TAB PO SCH ×2 (09:32→20:35)
[2018-03-16] MEDS: Multivit, Therapeutic 1 TAB PO SCH (09:32)
[2018-03-16] MEDS: Loratadine 10 MG TAB PO SCH (09:33)
[2018-03-16] MEDS: Furosemide 40 MG TAB PO SCH ×2 (09:33→13:39)
[2018-03-16] MEDS: Famotidine/PF 20 mg/2ml Vial SLOW IVP SCH ×2 (09:33→20:13)
--- NOTE | 2018-03-16 10:49 | PDOC.CTH ---
Cardiology Progress Note - Subjective He feels well. His breathing is at baseline. - Objective Vital Signs Temp Pulse Resp BP BP BP BP 03/16/18 08:15 91 18 03/16/18 08:00 03/16/18 07:27 98.5 F 75 16 95/47 L 03/16/18 04:22 98.0 F 81 21 H 112/66 03/16/18 01:13 76 18 03/16/18 00:26 98.1 F 94 22 H 100/57 L 03/15/18 23:36 93/46 L 03/15/18 22:49 86/46 L Pulse Ox 03/16/18 08:15 97 03/16/18 08:00 97 03/16/18 07:27 97 03/16/18 04:22 92 L 03/16/18 01:13 95 03/16/18 00:26 93 L 03/15/18 23:36 03/15/18 22:49 Admit Weight 162 lb 4.16 oz Weight 157 lb 3.033 oz 03/15/18 03/16/18 03/17/18 06:59 06:59 06:59 Intake Total 1580 1002 Output Total 1600 950 Balance -20 52 - Physical Examination General/Neuro: alert & oriented x3, NAD Neck: no JVD present Lungs: unlabored respirations, other: (Reduced breath sounds. ) Heart: other: (Irregular) Abdomen: NT/ND Extremities: other: (no edema) - Telemetry Telemetry Rhythm: MAT, A Tach. - Labs Result Diagrams: 03/16/18 01:04 03/15/18 09:14 Troponin/CKMB CK-MB (CK-2) 4.2 ng/mL (0-6.6) 03/08/18 17:27 Troponin I 0.057 ng/mL (< 0.028) H 03/08/18 17:27 - Assessment/Plan 1. COPD exacerbation 2. Atrial tachycardias, MAT/aflutter. 3. NSVT OVC's. 4. S/p dual chamber AICD. 5. EF at 40-45%. 6. HTN 7. Fever yesterday. MRSA oinb lood cultures. PLAN: - Abx per primary team - Continue other meds.
[2018-03-16] MEDS: Vancomycin HCl 1 GM in Premix Bag 1 BAG IVPB SCH (11:17)
--- NOTE | 2018-03-16 11:40 | PRG ---
DATE OF SERVICE: 03/16/2018 SUBJECTIVE: This morning, he is better. home when he developed a fever last night. He was st arted on broad-spectrum antibiotics. His maximum temperature is 102.2. His x-ray taken shows extensive bony cage abnormality. Difficult to say whether he has actually got a new infiltrate or no, but there was some progressive o pacification . OBJECTIVE: VITAL SIGNS: His sats are 97, pulse 18, temperature 98, blood pressure 94/46. CHEST: Reveals decreased breath sounds, no wheezing. CARDIAC: Normal S1, S2. No gallops. ABDOMEN: Soft, no masses. LABORATORY DATA: White count 16,000 H&H is 11 and 35, platelet count is normal. Blood culture; methicillin-resistant Staph so far from the right hand. IMPRESSION: Chronic obstructive pulmonary disease, sleep apnea, kyphoscoliosis, presumed hospital-ac quired pneumonia. PLAN: He is on vancomycin and Zosyn was started yesterday. If he truly has vancomycin resistant pneumonia, I will switch him to Zyvox.
[2018-03-16] MEDS ORDERED: Vancomycin HCl 1 GM in Premix Bag 1 BAG IVPB SCH ×2 (12:00→21:00)
[2018-03-17] MEDS: Vancomycin HCl 1 GM in Premix Bag 1 BAG IVPB SCH ×2 (01:00→11:53)
[2018-03-17] MEDS: Piperacillin/Tazobactam 3.375 GM in Sodium Chloride 0.9% 100 ML IVPB SCH (04:51)
[2018-03-17 04:58] LABS: Anion Gap 13 mmol/L (10-20); BUN (Urea Nitrogen) 21 mg/dL (8.4-25.7); Calc. Creatinine Clearance 96 mL/min (70-130); Calcium 9.1 mg/dL (7.8-10.44); Carbon Dioxide 34 mmol/L (23-31); Chloride 96 mmol/L (98-107); Estimated GFR-MDRD Greater than 90; Glucose 157 mg/dL (83-110); Potassium 3.6 mmol/L (3.5-5.1); Sodium 139 mmol/L (136-145)
[2018-03-17 05:21] LABS: Band 12 % (5-11); Hemoglobin 11.9 g/dL (14.0-18.0); Lymphocytes 2 % (21-51); MDiff Complete? YES; Mean Corpuscular HGB CONC 30.3 g/dL (32.0-36.0); Mean Corpuscular Hemoglobin 31.4 pg (27.0-31.0); Mean Platelet Volume 8.2 fL (7.4-10.4); Monocytes 1 % (0-10); Neutrophil 85 % (42-75); Platelet Count 179 thou/uL (130-400); RBC Distribution Width 14.8 % (11.5-14.5); Red Blood Cell (RBC) Count 3.78 mill/uL (4.70-6.10); White Blood Cell (WBC) Count 13.6 thou/uL (4.8-10.8)
[2018-03-17] MEDS: Mometasone/Formoterol 120 PUFF INHALER INH SCH ×2 (07:40→19:09)
[2018-03-17] MEDS: Multivit, Therapeutic 1 TAB PO SCH (08:26)
[2018-03-17] MEDS: Dofetilide 0.125 MG CAP PO SCH ×2 (08:26→21:16)
[2018-03-17] MEDS: predniSONE 20 MG TAB PO SCH ×2 (08:26→21:16)
[2018-03-17] MEDS: Atorvastatin Calcium 20 MG TAB PO SCH (08:26)
[2018-03-17] MEDS: Apixaban 2.5 MG TAB PO SCH ×2 (08:26→21:16)
[2018-03-17] MEDS: Metoprolol Tartrate 25 MG TAB PO SCH ×2 (08:26→21:16)
[2018-03-17] MEDS: guaiFENesin ER 600 MG TAB PO SCH ×2 (08:26→21:16)
[2018-03-17] MEDS: Loratadine 10 MG TAB PO SCH (08:26)
[2018-03-17] MEDS: Famotidine/PF 20 mg/2ml Vial SLOW IVP SCH ×2 (08:27→21:20)
[2018-03-17] MEDS: Famotidine 20 MG TAB PO SCH ×2 (08:27→21:16)
[2018-03-17] MEDS: Furosemide 40 MG TAB PO SCH ×2 (08:27→13:33)
--- NOTE | 2018-03-17 09:23 | PDOC.PN ---
- Subjective Encounter Start Date: 03/17/18 Encounter Start Time: 09:22 Subjective: nsg notes rev, yemi ovn, pt had no further "episodes" similar to the one on -: wed where he could "feel" his aflutter. slept poorly but reports this is -: chronic and last night no worse than his baseline - Objective Resuscitation Status: Resuscitation Status FULL:Full Resuscitation Vital Signs & Weight: Vital Signs (12 hours) Temp Pulse Resp BP BP Pulse Ox 03/17/18 07:37 96 22 H 99 03/17/18 07:35 90 L 03/17/18 07:28 98.0 F 74 19 108/58 L 90 L 03/17/18 04:26 97.8 F 95 19 95/43 L 94 L 03/17/18 00:34 98.4 F 82 23 H 120/69 95 03/17/18 00:20 85 20 100 Weight Admit Weight 162 lb 4.16 oz Weight 158 lb 15.253 oz I&O: 03/16/18 03/17/18 03/18/18 06:59 06:59 06:59 Intake Total 1002 3486 240 Output Total 950 2675 Balance 52 811 240 Result Diagrams: 03/17/18 04:15 03/17/18 04:15 Phys Exam - Physical Examination Constitutional: NAD seated on the edge of the hosp bed HEENT: moist MMs decreased air mvmt, dimin b/l soft heart tones Gastrointestinal: positive bowel sounds Musculoskeletal: pulses present Psychiatric: A&O x 3 Dx/Plan - Plan Dx/Plan (1) Sepsis Code(s): A41.9 - SEPSIS, UNSPECIFIED ORGANISM Status: resolved Comment: MRSA 2/2 blood cultures, c/w bacteremia. D/C empiric pip-yassine, D/C IVF as pt is hemodynamically stable, tolerating PO. Repeat BCx. Leukocytosis improving. (2) Acute and chronic respiratory failure with hypoxia Code(s): J96.21 - ACUTE AND CHRONIC RESPIRATORY FAILURE WITH HYPOXIA Status: Acute Comment: Improved, continue O2 support via NC, pulmonary supportive measures. Apprec pulm c/s. Continue prednisone 20mg PO BID (3) Acute on chronic systolic heart failure Code(s): I50.23 - ACUTE ON CHRONIC SYSTOLIC (CONGESTIVE) HEART FAILURE Status : Acute Comment: EF 30-35%, AICD in place, Lasix 20mg po BID D/C IVF (4) Atrial flutter Code(s): I48.92 - UNSPECIFIED ATRIAL FLUTTER Status: Acute Comment: Tikosyn 250mcg daily, rate variable. Appreciate cardiology c/s (5) Atrial fibrillation with RVR Code(s): I48.91 - UNSPECIFIED ATRIAL FIBRILLATION Status: Chronic Comment: Continue Tikosyn, Metoprolol, Eliquis, rate variable, may need additional Digoxin (6) MADELINE (obstructive sleep apnea) Code(s): G47.33 - OBSTRUCTIVE SLEEP APNEA (ADULT) (PEDIATRIC) Status: Chronic Comment: Nocturnal CPAP - Plan continue PT/OT, certified social workers in health care, respiratory therapy AM lab: BMP, CBC Review of Systems - Medications/Allergies Allergies/Adverse Reactions: Allergies Allergy/AdvReac Type Severity Reaction Status Date / Time ibuprofen [From Motrin] Allergy Verified 03/09/18 01:46 Medications: Current Medications Acetaminophen (Tylenol) 1,000 mg PO Q6H PRN PRN Reason: Headache/Fever or Pain Albuterol Sulfate (Ventolin) 2.5 mg NEB Q2H PRN PRN Reason: SOB &/or Wheezing Albuterol/Ipratropium (Duoneb) 3 ml NEB [id number] [facility] Last Admin: 03/17/18 07:37 Dose: 3 ml Apixaban (Eliquis) 2.5 mg PO BID [facility] Last Admin: 03/17/18 08:26 Dose: 2.5 mg Atorvastatin Calcium (Lipitor) 20 mg PO DAILY [facility] Last Admin: 03/17/18 08:26 Dose: 20 mg Cholecalciferol (Vitamin D3) 5,000 units PO DAILY [facility] Last Admin: 03/17/18 08:26 Dose: 5,000 units Diphenhydramine HCl (Benadryl) 25 mg PO Q4H PRN PRN Reason: Itching Dofetilide (Tikosyn) 0.25 mg PO BID [facility] Last Admin: 03/17/18 08:26 Dose: 0.25 mg Famotidine (Pepcid) 20 mg SLOW IVP Q12HR [facility] Last Admin: 03/17/18 08:27 Dose: Not Given Famotidine (Pepcid) 20 mg PO BID [facility] Last Admin: 03/17/18 08:27 Dose: 20 mg Furosemide (Lasix) 40 mg PO 0900,1400 [facility] Last Admin: 03/17/18 08:27 Dose: 40 mg Guaifenesin (Mucinex) 600 mg PO Q12HR [facility] Last Admin: 03/17/18 08:26 Dose: 600 mg Vancomycin HCl 1 gm/ Device 200 mls @ 200 mls/hr IVPB 1200,2359 [facility] Last Admin: 03/17/18 01:00 Dose: 200 mls Loratadine (Claritin) 10 mg PO DAILY [facility] Last Admin: 03/17/18 08:26 Dose: 10 mg Metoprolol Tartrate (Lopressor) 12.5 mg PO BID [facility] Last Admin: 03/17/18 08:26 Dose: 12.5 mg Mometasone Furoate/Formoterol Fumar (Dulera 100 Mcg/5 Mcg Inhaler) 2 puff INH BID-RT [facility] Last Admin: 03/17/18 07:40 Dose: 2 puff Multivitamins (Theragran) 1 tab PO DAILY [facility] Last Admin: 03/17/18 08:26 Dose: 1 tab Prednisone (Prednisone) 20 mg PO BID [facility] Last Admin: 03/17/18 08:26 Dose: 20 mg Senna (Senokot) 1 tab PO DAILYPRN PRN PRN Reason: Constipation Sodium Chloride (Flush - Normal Saline) 10 ml IVF Q12HR [facility] Last Admin: 03/17/18 08:27 Dose: 10 ml Sodium Chloride (Flush - Normal Saline) 10 ml IVF PRN PRN PRN Reason: Saline Flush Temazepam (Restoril) 15 mg PO HSPRN PRN PRN Reason: Insomnia Trazodone HCl (Desyrel) 25 mg PO HSPRN PRN PRN Reason: Insomnia
--- NOTE | 2018-03-17 11:07 | PRG ---
DATE OF SERVICE: 03/15/2018 SUBJECTIVE: Mr. Rosa again has worsening respiratory distress today. He denies chest pain, no pal pitations, no loss of consciousness. He did have an episode of rapid ventricular rates while in resp iratory distress overnight. OBJECTIVE DATA: VITAL SIGNS: Blood pressure is 118/75, heart rate 109, respiratory rate 21, temperature 102.2 degree s Fahrenheit. GENERAL: Alert and oriented man in no apparent distress. NECK: Supple. Jugular veins not distended. CHEST: Coarse without crackles. CARDIOVASCULAR: Heart sounds are regular to rate and rhythm. No murmur or gallop. ABDOMEN: Benign. Bowel sounds positive. EXTREMITIES: Lower extremities without clubbing or cyanosis. DATABASE: EKG reveals occasional atrial fibrillation, but now back in sinus rhythm with PACs and ruben quent PVCs also noted. White cell count 51695, hemoglobin 13.2 mg per deciliter, platelet count is 2 17. INR is 1.2. Electrolytes within normal range except CO2 of 35, chloride 96. BNP on 03/14/2018 was 3098. Chest x-ray today shows progressive bilateral opacification pneumonia versus edema. ASSESSMENT AND PLAN: Mr. Rosa is a 77-year-old man with severe kyphoscoliosis, systolic and diasto lic heart failure, noticed severe left ventricular dysfunction. 1. He has frequent atrial and ventricular arrhythmias as well and his atrial arrhythmias are being s uppressed with Tikosyn. We have increased Tikosyn 250 mcg as originally planned, but he was taking l ow dose as an outpatient. Since then, some improvement on atrial arrhythmias are seen, but not compl etely eliminated yet. This is in keeping with his prior response to Tikosyn in the last hospitalizat ion 3 weeks ago. 2. He had ventricular tachycardia on telemetry while recent hospitalization promptly detected and te rminated . For now, continue beta maureen therapy for this. He is a somewhat poor candidate fo r amiodarone, but that could be necessitated for further arrhythmias. 3. Severe kyphoscoliosis, will make any procedures difficult. 4. If the atrial fibrillation and rapid rates continue, consideration for even ablation could be mad e, although at this point, I would leave it as a last resort. 5. Fever of unclear origin, on empiric antibiotics, vancomycin and Zosyn and blood cultures pending.
--- NOTE | 2018-03-17 11:27 | PDOC.CTH ---
Cardiology Progress Note - Subjective No new issues. - Objective Vital Signs Temp Pulse Resp BP BP Pulse Ox 03/17/18 11:24 98.0 F 91 18 132/84 99 03/17/18 10:00 95 114/81 03/17/18 07:37 96 22 H 99 03/17/18 07:35 90 L 03/17/18 07:28 98.0 F 74 19 108/58 L 90 L 03/17/18 04:26 97.8 F 95 19 95/43 L 94 L 03/17/18 00:34 98.4 F 82 23 H 120/69 95 03/17/18 00:20 85 20 100 Admit Weight 162 lb 4.16 oz Weight 158 lb 15.253 oz 03/16/18 03/17/18 03/18/18 06:59 06:59 06:59 Intake Total 1002 3486 240 Output Total 950 2675 Balance 52 811 240 - Physical Examination General/Neuro: alert & oriented x3, NAD Neck: no JVD present Lungs: unlabored respirations Heart: other: (irregular) Abdomen: NT/ND Extremities: other: (no edema) - Telemetry Telemetry Rhythm: MAT, HR 80's. - Labs Result Diagrams: 03/17/18 04:15 03/17/18 04:15 Troponin/CKMB CK-MB (CK-2) 4.2 ng/mL (0-6.6) 03/08/18 17:27 Troponin I 0.057 ng/mL (< 0.028) H 03/08/18 17:27 - Assessment/Plan 1. COPD exacerbation 2. Atrial tachycardias, MAT/aflutter. 3. NSVT OVC's. 4. S/p dual chamber AICD. 5. EF at 40-45%. 6. HTN 7. Fever. MRSA in blood cultures. PLAN: - Abx per primary team - Continue other meds. - No new recs.
[2018-03-17 11:38] LABS: Vancomycin, Trough 15.6 ug/mL
--- NOTE | 2018-03-17 17:37 | PRG ---
DATE OF SERVICE: 03/17/2018 SUBJECTIVE: Mr. Rosa did not have any problems last night or this morning by his report. OBJECTIVE: VITALS: He is afebrile, heart rate is 100, respiratory rate is 21, oximetry is 96. Blood pressure 123/83. LUNGS: Still remarkable for fine crackles at his bases. HEART: Regular rhythm. ABDOMEN: Soft. IMPRESSION: Rapid atrial fibrillation, combined with congestive heart failure leading to decompensation, atrial fibrillation. His rate control has been an intermittent issue. I do not feel that this is asthma. 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 We will continue to follow. He probably needs to stay in the intermediate care unit. When he decompensates, he does so suddenly. Staph isolated on blood cultures is an issue with new AICD. MTDD
[2018-03-18] MEDS: Vancomycin HCl 1 GM in Premix Bag 1 BAG IVPB SCH ×2 (00:44→12:35)
[2018-03-18] MEDS: Mometasone/Formoterol 120 PUFF INHALER INH SCH ×2 (06:38→18:29)
[2018-03-18] MEDS: Famotidine/PF 20 mg/2ml Vial SLOW IVP SCH ×2 (09:09→20:27)
[2018-03-18] MEDS: Metoprolol Tartrate 25 MG TAB PO SCH ×2 (09:11→20:26)
[2018-03-18] MEDS: Dofetilide 0.125 MG CAP PO SCH ×2 (09:11→20:26)
[2018-03-18] MEDS: guaiFENesin ER 600 MG TAB PO SCH ×2 (09:11→20:26)
[2018-03-18] MEDS: Multivit, Therapeutic 1 TAB PO SCH (09:13)
[2018-03-18] MEDS: predniSONE 20 MG TAB PO SCH ×2 (09:13→20:27)
[2018-03-18] MEDS: Atorvastatin Calcium 20 MG TAB PO SCH (09:13)
[2018-03-18] MEDS: Apixaban 2.5 MG TAB PO SCH ×2 (09:13→20:26)
[2018-03-18] MEDS: Loratadine 10 MG TAB PO SCH (09:13)
[2018-03-18] MEDS: Furosemide 40 MG TAB PO SCH ×2 (09:13→14:29)
[2018-03-18] MEDS: Famotidine 20 MG TAB PO SCH ×2 (09:13→20:26)
--- NOTE | 2018-03-18 11:10 | PRG ---
DATE OF SERVICE: 03/18/2018 SUBJECTIVE: The patient is seen and examined at bedside. He is doing relatively well. He is partic ipating in physical therapy. His appetite is fair. Bowel movements daily or every other day. He do es not have much complaints to offer. OBJECTIVE: VITAL SIGNS: Blood pressure is 104/59, pulse is 99, temperature 98.5, respiratory rate is 20, O2 sat uration 97% on 2 liters by nasal cannula. He used CPAP at night. HEENT: His head is otherwise normocephalic. Conjunctivae somewhat palish. Oral mucosa is moist. NECK: Supple. No lymphadenopathy. LUNGS: Breath sounds somewhat diminished at both bases. No wheezing or crackles. HEART: S1, S2, somewhat distant. No S3, no S4, irregular. ABDOMEN: Soft, nontender, bowel sounds are present, no organomegaly. EXTREMITIES: He has 2+ peripheral edema bilaterally similar. He has significant scoliosis of his sp ine, he has a big bruise in the left flank. NEUROLOGIC: He is alert and oriented x4. There is no any motor deficits. LABORATORY DATA: Showed a white count of 13.6, hemoglobin 11.9, hematocrit 39.1, platelet count is 1 79, MCV is 103, that is from yesterday. Microbiology is showing gram positive cocci on blood culture from the left arm, one out of two cultures are positive. IMPRESSION: 1. Sepsis with bacteremia, Methicillin-resistant Staphylococcus aureus, 2/2. Blood cultures p ositive, now 1 out of 2. We will obtain ID consult with Dr. High. Continue IV antibiotic. 2. Chronic obstructive pulmonary disease exacerbation. The patient is switched to oral prednisone p jono Jacome, doing better. 3. Acute on chronic systolic heart failure with EF of 30-35%, AICD in place, managed per Cardiology. 4. Atrial flutter, on Tikosyn. 5. Obstructive sleep apnea, on CPAP at night. PLAN: As I mentioned above. Continue IV antibiotics. Get ID consult regarding whether we need to c ontinue IV antibiotics and for how long, in what form. We will try to send him to [facility] when he is ready to go in the next probably 48 hours. Deep venous thrombosis prophylaxis, continu e.
--- NOTE | 2018-03-18 12:03 | PDOC.CTH ---
Cardiology Progress Note - Subjective Pt. seen and eval. by me. No new overnight events.No new complaints. Awake,alert ,oriented. - Objective Vital Signs Temp Pulse Resp BP Pulse Ox 03/18/18 11:13 99.6 F 87 19 127/64 100 03/18/18 08:00 97 03/18/18 07:59 98.5 F 99 20 104/59 L 97 03/18/18 06:38 96 03/18/18 06:34 93 16 96 03/18/18 03:49 97.9 F 83 18 99/43 L 94 L 03/18/18 00:15 16 94 L Admit Weight 162 lb 4.16 oz Weight 156 lb 1.396 oz 03/17/18 03/18/18 03/19/18 06:59 06:59 06:59 Intake Total 3486 1990.4 240 Output Total 2675 2725 Balance 811 -734.6 240 - Physical Examination General/Neuro: alert & oriented x3 Neck: no JVD present Lungs: CTA Heart: RRR, other: (RRR with ectopy.) Abdomen: soft Extremities: + edema B - Labs Result Diagrams: 03/17/18 04:15 03/17/18 04:15 Troponin/CKMB CK-MB (CK-2) 4.2 ng/mL (0-6.6) 03/08/18 17:27 Troponin I 0.057 ng/mL (< 0.028) H 03/08/18 17:27 - Assessment/Plan 1. COPD exacerbation 2. Atrial tachycardias, MAT/aflutter. 3. NSVT OVC's. 4. S/p dual chamber AICD. 5. EF at 40-45%. 6. HTN 7. Fever. MRSA in blood cultures. PLAN: - Abx per primary team - Continue other meds. - No new recs.
--- NOTE | 2018-03-18 14:09 | PRG ---
DATE OF SERVICE: SUBJECTIVE: Mr. Rosa is in no distress. OBJECTIVE: VITAL SIGNS: He is afebrile, heart rates in the 80s, respiratory rate 16, oximetry is 96 on 2 liters , blood pressure 127/64. LUNGS: Remarkable for fine crackles at his bases. HEART: Irregular rhythm. ABDOMEN: Soft. EXTREMITIES: Without any change. All of his blood cultures are positive for Staph aureus. This is methicillin resistant staph. He has 4 positive blood cultures and 1 positive urine culture. This worrisome for infection or colonization of his AICD in the leads. His asthma appears to be stable. Repeat a chest radiograph tomorrow to look at his radiographic findings that were consistent with pul monary edema when he developed rapid atrial fibrillation several days back. His hematoma and his flank are slowly resolving. This is secondary to a rectus bleed when he was ant icoagulated. He is on prophylactic dose Eliquis now. We will continue to follow with the other physicians caring for him. He is on vancomycin.
--- NOTE | 2018-03-18 18:32 | CON ---
DATE OF CONSULTATION: 03/18/2018 REASON FOR CONSULTATION: Bacteremia. HISTORY OF PRESENT ILLNESS: A 77-year-old gentleman who has a longstanding severe kyphoscoliosis with restrictive lung disease, cardiomyopathy with a recent defibrillator placed in a question of febrile illness during childhood, which has previously been ascribed to poliomyelitis, although this has not been documented. Mr. Rosa has chronic dyspnea, but over the past few days, this has worsened, and he was brought to the hospital by EMS and admitted. He also had noticed areas of bruising in the abdomen area, flank region left side and lower abdominal region in the midline. The patient describes these changes to the blood thinner medication, Eliquis that he takes. He denied any fever or chills. No headaches. No change in visual symptoms, sore throat, odynophagia, or dysphagia. No vomiting. No diarrhea. No urinary symptoms and no back pain. The patient had a recent admission to the hospital. At that time, his EF was evaluated at 30-35%, and he had an AICD placed. PAST MEDICAL HISTORY: Severe kyphoscoliosis with restrictive lung disease, atrial fibrillation, cardiomyopathy, asthma. FAMILY HISTORY: Noncontributory. SOCIAL HISTORY: Former smoker, lives in [place] about an hour from here. Quit smoking many, many years ago. Lives with brother. No alcoholic beverage use of significance. ALLERGIES: IBUPROFEN and MOTRIN. MEDICATIONS BEFORE ADMISSION: Eliquis, Coreg, Tikosyn, lisinopril, prednisone 20 mg daily, Keflex, Ventolin, Lasix, loratadine, fluticasone, omeprazole, sennosides, temazepam, aspirin, albuterol, Benadryl, atorvastatin, lisinopril, vitamin D, and currently receiving Eliquis, DuoNeb, and the vancomycin. PHYSICAL EXAMINATION: VITAL SIGNS: T-max 102 a few days ago. Now, he is 97.6. He has a peripheral IV access and voiding spontaneously in the urinal. He has areas of scabbing and mild erythema in the prepatellar region, right and left side, which are secondary to patient frequently kneeling for mobility at home. He has no lymphadenopathy. HEENT: Ocular movements are conjugate. Oral cavity with no significant findings. NECK: Supple. No jugular vein distention. LUNGS: With symmetric air entry, no wheezing. HEART: S1, S2, regular rate. AICD pocket site without inflammatory changes. BACK: No tenderness in the spine area. Kyphoscoliosis noted. There are areas of bruising in the lateral abdominal area, left side, radiating towards the back and along the midline lower abdominal aspect with some tenderness associated with it. Genital area was not remarkable. The patient has mobility in all 4 extremities. He has some deformities in the hand, right side. Pulses are 1+ in dorsalis pedis. Cap refill is normal. No edema. NEUROLOGIC: Plantar responses are flexor. No clonus. Reflexes are intact. Cognitive function appears to be intact. LABORATORY DATA: White cell count was 8.2 and was up to 16 and now down to 13.6 , hemoglobin 11.9, platelets 179, 12% bands. ABG: PH 7.43, PCO2 of 45, pO2 of 63. Sodium 139, creatinine 0.67, bilirubin 1.7 with normal transaminases, albumin 3.2. Urinalysis was normal. Vanc trough 15.6. Bacterial cultures with 4 sets of blood cultures positive for MRSA, 2 obtained on , 2 more obtained on the . Staph species in the urine as well. The patient had a transesophageal echocardiogram done in March 10, which was not remarkable. Transthoracic echocardiogram on January. ASSESSMENT: 1. Severe kyphoscoliosis with restrictive lung disease. 2. Cardiomyopathy, unknown origin, may be associated with this thoracic deformity. 3. Automatic implantable cardioverter-defibrillator recently placed. 4. Chronic corticosteroids, probably for management of the chronic obstructive pulmonary disease. 5. Methicillin-resistant Staphylococcus aureus bacteremia, continues bacteremia with 2 sets in 2 separate days. 6. Neutrophilia. DISCUSSION: Differential diagnosis includes AICD colonization, endocarditis. No obvious other sites of involvement are apparent at this time. The main areas of concern would be the spine, lungs with septic involvement intra- abdominal area with the areas of hematomas that were identified on CT scan. Those can be secondarily colonized, but the main concern here will be the AICD device. A BERNICE may be considered for evaluation. Typically, if those are shown to be colonized, removal of the device is usually recommended. If if there is no evidence of colonization, then conservative management of long-term treatment (6 wks) with vancomycin through a PICC line would be recommended and then suppressive therapy. We will have to keep monitoring his back and long bones and joints for potential dissemination to those sites down the road. JOSEFA
[2018-03-19] MEDS: Vancomycin HCl 1 GM in Premix Bag 1 BAG IVPB SCH ×2 (00:56→12:16)
[2018-03-19] MEDS: Mometasone/Formoterol 120 PUFF INHALER INH SCH ×2 (06:23→18:37)
[2018-03-19] MEDS: Atorvastatin Calcium 20 MG TAB PO SCH (09:21)
[2018-03-19] MEDS: Apixaban 2.5 MG TAB PO SCH ×2 (09:21→21:30)
[2018-03-19] MEDS: Dofetilide 0.125 MG CAP PO SCH ×2 (09:23→22:30)
[2018-03-19] MEDS: Multivit, Therapeutic 1 TAB PO SCH (09:24)
[2018-03-19] MEDS: Famotidine 20 MG TAB PO SCH ×2 (09:24→21:30)
[2018-03-19] MEDS: Loratadine 10 MG TAB PO SCH (09:24)
[2018-03-19] MEDS: predniSONE 20 MG TAB PO SCH ×2 (09:24→21:31)
[2018-03-19] MEDS: guaiFENesin ER 600 MG TAB PO SCH ×2 (09:24→21:31)
[2018-03-19] MEDS: Metoprolol Tartrate 25 MG TAB PO SCH ×2 (09:24→21:30)
[2018-03-19] MEDS: Furosemide 40 MG TAB PO SCH ×2 (09:24→14:04)
[2018-03-19] MEDS: Famotidine/PF 20 mg/2ml Vial SLOW IVP SCH ×2 (09:25→21:31)
--- NOTE | 2018-03-19 09:40 | RAD ---
CHEST 1 VIEW: HISTORY: CHF. COMPARISON: Radiograph of prior day. FINDINGS: Enthesopathic changes of the right ribs were again seen. Heart size is markedly enlarged. Layering effusions. No large pneumothorax. There are severe scoliotic changes. Pulmonary arteries are dilated. IMPRESSION: Similar exam. POS: NIKKI
--- NOTE | 2018-03-19 11:10 | PRG ---
DATE OF SERVICE: 03/19/2018 SUBJECTIVE: The patient is seen and examined at bedside. He is not having any more complaints. He feels like he felt yesterday, his appetite is good. OBJECTIVE: VITAL SIGNS: Blood pressure is 104/76, pulse is 113, temperature is 98.1, respiratory rate is 17, O2 saturation is 96% on 2 liters by nasal cannula. HEENT: Head is atraumatic, normocephalic. Sclerae is nonicteric. Oral mucosa is moist. NECK: Supple. CHEST: Severely scoliotic. Breath sounds somewhat diminished at both bases. No crackles, rales, or wheezing. HEART: S1, S2 normal. No S3, no S4. ABDOMEN: Soft, mildly distended, not tender to palpation. EXTREMITIES: 2+ peripheral edema similar bilaterally. NEUROLOGIC: He is alert and oriented x4. There is not any motor deficits. Cranial nerves are intac t. LABORATORY DATA: Microbiology, Staphylococcus aureus, 2/2 cultures positive, further testing in prog ress. A chest x-ray did not show any new changes. IMPRESSION: 1. Sepsis with bacteremia, MRSA on the first 2 cultures. Now, the patient is growing Staphylococcus aureus and further identification in progress. ID was consulted. Dr. High recommends transthoraci c echocardiogram and if this is negative and if it is feasible, we will do a transesophageal echo. W paxton will discuss the case with Dr. Ferraro, who is presently director software on the case or with Dr. Mendoza, who is on-call for him today. If echo shows some vegetations on his AICD leads, the device will have to be removed and later replaced. 2. Chronic obstructive pulmonary disease exacerbation with restrictive lung disease. 3. Acute on chronic systolic heart failure with ejection fraction of 30% to 35%. 4. Atrial flutter, on Tikosyn. 5. Obstructive sleep apnea, on CPAP at night. 6. AICD in place. PLAN: As mentioned above and IV antibiotics as per Dr. High' recommendation, which is vancomycin. We are awaiting for final culture results and susceptibility. Again if all those findings are negati ve, he will have to be on 6 weeks IV antibiotic after the PICC line is placed.
[2018-03-19 11:41] LABS: Vancomycin, Trough 15.3 ug/mL
--- NOTE | 2018-03-19 18:39 | PDOC.CTH ---
Cardiology Progress Note - Subjective Pt. seen and eval. by me. no new events overnight. No c/o's. - Objective Vital Signs Temp Pulse Resp BP Pulse Ox 03/19/18 15:54 97.8 F 75 12 116/52 L 93 L 03/19/18 14:22 80 20 03/19/18 13:39 97.9 F 94 20 146/82 H 100 03/19/18 11:32 99.0 F 96 16 123/60 100 03/19/18 07:33 98.1 F 113 H 17 104/76 96 Admit Weight 162 lb 4.16 oz Weight 153 lb 3.54 oz 03/18/18 03/19/18 03/20/18 06:59 06:59 06:59 Intake Total 1990.4 2190 1200 Output Total 2725 2775 1025 Balance -734.6 -585 175 - Physical Examination General/Neuro: alert & oriented x3 Neck: no JVD present Lungs: CTA Heart: other: (irreg.) Abdomen: soft Extremities: + edema B - Telemetry Telemetry Rhythm: NSR,PAC's,PVC's - Labs Result Diagrams: 03/17/18 04:15 03/17/18 04:15 Troponin/CKMB CK-MB (CK-2) 4.2 ng/mL (0-6.6) 03/08/18 17:27 Troponin I 0.057 ng/mL (< 0.028) H 03/08/18 17:27 - Assessment/Plan 1. COPD exacerbation 2. Atrial tachycardias, MAT/aflutter. 3. NSVT OVC's. 4. S/p dual chamber AICD. 5. EF at 40-45%. 6. HTN 7. Fever. MRSA in blood cultures. PLAN: - Abx per primary team - Continue other meds. - No new recs.
--- NOTE | 2018-03-19 21:07 | PRG ---
DATE OF SERVICE: 03/19/2018 SUBJECTIVE: Mr. Rosa is stable. OBJECTIVE: VITALS: He has had no more fever. His heart rate is in the 90s, respiratory rate is 12, oximetry is 93 on 2 liters, blood pressure 116/52. LUNGS: Clear. HEART: Regular rhythm. ABDOMEN: Soft. small effusions. IMPRESSION: 1. Cardiomyopathy. 2. Staphylococcus aureus bactremia ? skin source. He has multiple skin lesions that could have been point of entrance for methicillin-resistant Staphylococcus aureus. 3. Recent automatic implantable cardioverter-defibrillator. 4. Asthma. 5. Kyphoscoliosis, severe. PLAN: Continue current care with antimicrobials as recommended by Dr. High.
[2018-03-19] MEDS ORDERED: Dofetilide 0.25 MG CAP PO SCH (21:45)
--- NOTE | 2018-03-19 21:45 | EKG ---
Test Reason : Blood Pressure : / mmHG Vent. Rate : 085 BPM Atrial Rate : 085 BPM P-R Int : 150 ms QRS Dur : 112 ms QT Int : 420 ms P-R-T Axes : 063 -61 -33 degrees QTc Int : 499 ms Sinus rhythm with Premature atrial complexes with Abberant conduction Left axis deviation Incomplete right bundle branch block Nonspecific T wave abnormality Abnormal ECG When compared with ECG of 08-MAR-2018 17:23, (Unconfirmed) Premature ventricular complexes are no longer Present Abberant conduction is now Present Criteria for Septal infarct are no longer Present Nonspecific T wave abnormality has replaced inverted T waves in Anterolateral leads Confirmed by KRUPA BURGOS (2) on 03/19/2018 9:44:59 PM Referred By: KARIN Confirmed By:KRUPA BURGOS
--- NOTE | 2018-03-19 21:55 | EKG ---
Test Reason : TIMED Blood Pressure : / mmHG Vent. Rate : 085 BPM Atrial Rate : 085 BPM P-R Int : 154 ms QRS Dur : 106 ms QT Int : 392 ms P-R-T Axes : 077 -65 -89 degrees QTc Int : 466 ms Normal sinus rhythm with premature supraventricular complexes with aberrancy Left axis deviation Prolonged QT Abnormal ECG When compared with ECG of 13-MAR-2018 23:06, (Unconfirmed) Incomplete right bundle branch block is no longer Present Inverted T waves have replaced nonspecific T wave abnormality in Inferior leads Inverted T waves have replaced nonspecific T wave abnormality in Anterior leads Confirmed by KRUPA BURGOS (2) on 03/19/2018 9:55:32 PM Referred By: BHARATH Confirmed By:KRUPA BURGOS
--- NOTE | 2018-03-19 22:13 | EKG ---
Test Reason : TIMED Blood Pressure : / mmHG Vent. Rate : 090 BPM Atrial Rate : 090 BPM P-R Int : 154 ms QRS Dur : 102 ms QT Int : 386 ms P-R-T Axes : 077 -47 -89 degrees QTc Int : 472 ms Sinus rhythm with frequent Premature ventricular complexes Left axis deviation Incomplete right bundle branch block Prolonged QT Abnormal ECG When compared with ECG of 14-MAR-2018 11:01, (Unconfirmed) Previous ECG has undetermined rhythm, needs review Incomplete right bundle branch block is now Present Confirmed by KRUPA BURGOS (2) on 03/19/2018 10:13:01 PM Referred By: BHARATH Confirmed By:KRUPA BURGOS
[2018-03-20] MEDS: Vancomycin HCl 1 GM in Premix Bag 1 BAG IVPB SCH ×3 (01:12→23:48)
[2018-03-20] MEDS: Mometasone/Formoterol 120 PUFF INHALER INH SCH ×2 (07:23→20:39)
--- NOTE | 2018-03-20 08:19 | PDOC.PN ---
- Subjective Encounter Start Date: 03/20/18 Encounter Start Time: 08:17 Mr. Rosa was seen today in follow-up of COPD exacerbation and MRSA Bacteremia. He does not have any new complaints, and denies shortness of breath or chest pain. - Objective Resuscitation Status: Resuscitation Status FULL:Full Resuscitation MAR Reviewed: Yes Vital Signs & Weight: Vital Signs (12 hours) Temp Pulse Resp BP BP Pulse Ox 03/20/18 07:57 96 03/20/18 07:46 98.3 F 115 H 18 136/67 95 03/20/18 07:23 104 H 20 03/20/18 07:09 104 H 20 97 03/20/18 04:41 97.7 F 83 21 H 92/52 L 97 03/20/18 00:36 97.5 F L 83 22 H 105/52 L 99 03/20/18 00:09 80 20 Weight Admit Weight 162 lb 4.16 oz Weight 155 lb I&O: 03/19/18 03/20/18 03/21/18 06:59 06:59 06:59 Intake Total 2190 1999 Output Total 2775 1725 Balance -585 275 Result Diagrams: 03/17/18 04:15 03/17/18 04:15 Additional Labs: Accuchecks 03/19/18 03/19/18 13:31 13:22 POC Glucose 145 H 198 H Phys Exam - Physical Examination HEENT: PERRLA Respiratory: no wheezing, no rales, no rhonchi, clear to auscultation bilateral Cardiovascular: RRR, no significant murmur, no rub Gastrointestinal: soft, non-tender, no distention, positive bowel sounds Musculoskeletal: edema present trace pedal edema + echymosis in the left flank Psychiatric: normal affect, A&O x 3 Dx/Plan (1) MRSA bacteremia Code(s): R78.81 - BACTEREMIA Status: Acute (2) Acute and chronic respiratory failure with hypoxia Code(s): J96.21 - ACUTE AND CHRONIC RESPIRATORY FAILURE WITH HYPOXIA Status: Acute Comment: Improved, continue O2 support via NC, pulmonary supportive measures (3) COPD exacerbation Code(s): J44.1 - CHRONIC OBSTRUCTIVE PULMONARY DISEASE W (ACUTE) EXACERBATION Status: Acute Comment: Improving, pt on oral steroids (4) Kyphoscoliosis Code(s): M41.9 - SCOLIOSIS, UNSPECIFIED Status: Chronic Comment: stable (5) MADELINE (obstructive sleep apnea) Code(s): G47.33 - OBSTRUCTIVE SLEEP APNEA (ADULT) (PEDIATRIC) Status: Chronic Comment: Nocturnal CPAP (6) Acute on chronic combined systolic and diastolic CHF, NYHA class 3 Code(s): I50.43 - ACUTE ON CHRONIC COMBINED SYSTOLIC AND DIASTOLIC HRT FAIL Status: Acute - Plan * Patiwnt examined and chart reveiwed. He was admitted with COPD exacerbation, as well as ventricular and atrial arrhythmias. He was also noted to have some hemoptysis and flank hematoma, and his dose of Eliquis has been reduced. He also was noted to have MRSA Bacteremia, and he is being evaluated for a possible infected AICD. * COPD exacerbation- improved * Acute on chronic combined heart failure- compensated * MRSA bacteremia- continue IV Vancomycin, and await Echo results * Patient will need to have PICC line placed and at least 6 weeks of IV Vancomycin. * MADELINE- stable
[2018-03-20] MEDS: Apixaban 2.5 MG TAB PO SCH ×2 (09:00→20:29)
[2018-03-20] MEDS: Atorvastatin Calcium 20 MG TAB PO SCH (09:00)
[2018-03-20] MEDS: Dofetilide 0.25 MG CAP PO SCH ×2 (09:01→20:29)
[2018-03-20] MEDS: Famotidine 20 MG TAB PO SCH ×2 (09:01→20:30)
[2018-03-20] MEDS: Famotidine/PF 20 mg/2ml Vial SLOW IVP SCH ×2 (09:02→20:30)
[2018-03-20] MEDS: Loratadine 10 MG TAB PO SCH (09:02)
[2018-03-20] MEDS: Furosemide 40 MG TAB PO SCH ×2 (09:02→15:56)
[2018-03-20] MEDS: guaiFENesin ER 600 MG TAB PO SCH ×2 (09:02→20:29)
[2018-03-20] MEDS: Multivit, Therapeutic 1 TAB PO SCH (09:03)
[2018-03-20] MEDS: Metoprolol Tartrate 25 MG TAB PO SCH ×2 (09:03→20:30)
[2018-03-20] MEDS: predniSONE 20 MG TAB PO SCH ×2 (09:03→20:30)
--- NOTE | 2018-03-20 12:05 | PRG ---
DATE OF SERVICE: 03/20/2018 SUBJECTIVE: Jordy Rosa is doing well. He has no complaints. He has had no recurrence of rapid atr ial fibrillation triggering pulmonary edema. OBJECTIVE: VITAL SIGNS: He is afebrile, still having atrial fibrillation issues, but nothing sudden and severe like he is having last week. Respiratory rate is 18, oximetry is 95-96 on 2 liters, blood pressure 1 36/67. LUNGS: Essentially clear. HEART: rhythm. ABDOMEN: Soft and nontender. LABORATORY DATA: White count 13.6 three days ago. No new lab today. IMPRESSION: 1. Methicillin-resistant Staphylococcus aureus bacteremia. 2. Recent defibrillator. 3. Systolic cardiomyopathy. 4. Asthma. 5. Kyphoscoliosis. 6. Chronic respiratory failure on home oxygen with intermittent acute decompensation related to rapi d atrial fibrillation. PLAN: PICC line placement and planning for rehabilitation and antimicrobial therapy.
--- NOTE | 2018-03-20 16:35 | PDOC.CTH ---
Cardiology Progress Note - Subjective Mr Rosa seem to be doingf fair from cardiac standpoint Continues to have episodic PAT/MAT runs. Occ. NS-VT is seen. Not symptomatic. - Objective Vital Signs Temp Pulse Resp BP BP BP BP 03/20/18 15:43 98.4 F 92 18 100/41 L 03/20/18 13:03 97 12 03/20/18 11:18 98.5 F 91 19 146/86 H 03/20/18 10:09 146/86 H 128/89 03/20/18 07:57 03/20/18 07:46 98.3 F 115 H 18 136/67 03/20/18 07:23 104 H 20 03/20/18 07:09 104 H 20 03/20/18 04:41 97.7 F 83 21 H 92/52 L Pulse Ox 03/20/18 15:43 96 03/20/18 13:03 03/20/18 11:18 97 03/20/18 10:09 03/20/18 07:57 96 03/20/18 07:46 95 03/20/18 07:23 03/20/18 07:09 97 03/20/18 04:41 97 Admit Weight 162 lb 4.16 oz Weight 155 lb 03/19/18 03/20/18 03/21/18 06:59 06:59 06:59 Intake Total 2190 2000 Output Total 2775 1725 Balance -585 275 - Physical Examination General/Neuro: alert & oriented x3 Neck: no JVD present Lungs: other: (Coarse. No wheeze) Heart: other: (Irrge/irreg. No M/R/G) Abdomen: no HSM, NT/ND Extremities: + edema B Other PE findings: Severe Kyphoscoliosis - Labs Result Diagrams: 03/17/18 04:15 03/17/18 04:15 Troponin/CKMB CK-MB (CK-2) 4.2 ng/mL (0-6.6) 03/08/18 17:27 Troponin I 0.057 ng/mL (< 0.028) H 03/08/18 17:27 - Assessment/Plan 1. Paroxysmal Atrial arrhythmias (MAT and atypical flutter) -No in Sinus rhythm. QTc stable. Discharged on Tikosyn 250mcg BID but now on 125mcg BID. Will increase dose and monitor QTc with dose adjustment. -asymptomatic. -poor candidate for PVAI with his severe kyphosis. No typical flutter seen. -Stopping coreg in favor of metoprolol which is more cardio selective. Diltiazem can potentiate Tikosyn so this will be avoided for rate control. 2. Frequent PVC 3. Chronic cardiomyopathy 4. Congestive heart failure -had SOB and peripheral edema. Both resolving with diuresing -will recheck BNP in AM 5. Dual Chamber ICD -incision healing well without infection or signs of complication. Missed wound/device check appointment. Will have device checked later today. 6. CHADS2-VASC: 4 - on low dose eliquis. Resuming this home medication tonight. Continue reduced dose with his recent hemoptysis and bruising issues. 7. COPD exacerbation - Relies heavily on his albuterol inhaler which will antagonize atrial arrhythmias. 8. Hypotension -transient and likely related to diuresing with lasix. 9. MRSA bacteremia. On Vancomycin. ECHO pending to rule out endocarditis. monitor for recurrence after extended course. If recurrence despite can consider device evacuation.
[2018-03-21] MEDS: Mometasone/Formoterol 120 PUFF INHALER INH SCH ×2 (07:11→18:50)
[2018-03-21] MEDS: Atorvastatin Calcium 20 MG TAB PO SCH (10:09)
[2018-03-21] MEDS: Famotidine/PF 20 mg/2ml Vial SLOW IVP SCH ×2 (10:09→20:45)
[2018-03-21] MEDS: Apixaban 2.5 MG TAB PO SCH ×2 (10:09→21:48)
[2018-03-21] MEDS: Famotidine 20 MG TAB PO SCH ×2 (10:09→21:48)
[2018-03-21] MEDS: Metoprolol Tartrate 25 MG TAB PO SCH ×2 (10:10→21:47)
[2018-03-21] MEDS: guaiFENesin ER 600 MG TAB PO SCH ×2 (10:10→21:47)
[2018-03-21] MEDS: Multivit, Therapeutic 1 TAB PO SCH (10:10)
[2018-03-21] MEDS: Furosemide 40 MG TAB PO SCH ×2 (10:10→13:04)
[2018-03-21] MEDS: predniSONE 20 MG TAB PO SCH ×2 (10:10→21:48)
[2018-03-21] MEDS: Loratadine 10 MG TAB PO SCH (10:10)
--- NOTE | 2018-03-21 11:54 | PDOC.PN ---
- Subjective Encounter Start Date: 03/21/18 Encounter Start Time: 11:53 Mr. Rosa was seen today in follow-up of COPD exacerbation and MRSA bacteremia. He does not have ant complaints today he denies dyspnea. He walked with PT some today. - Objective MAR Reviewed: Yes Vital Signs & Weight: Vital Signs (12 hours) Temp Pulse Resp BP Pulse Ox 03/21/18 08:00 97 03/21/18 07:49 97.9 F 85 14 130/71 100 03/21/18 07:08 110 H 16 98 03/21/18 04:37 97.5 F L 95 16 121/77 100 03/21/18 01:07 92 18 100 03/21/18 00:51 90 18 99 03/21/18 00:35 98.2 F 83 15 122/76 100 Weight Admit Weight 162 lb 4.16 oz Weight 153 lb I&O: 03/20/18 03/21/18 03/22/18 06:59 06:59 06:59 Intake Total 1999 1949 Output Total 1725 3400 Balance 275 -1450 Result Diagrams: 03/17/18 04:15 03/17/18 04:15 Phys Exam - Physical Examination HEENT: PERRLA Respiratory: no wheezing, no rales, no rhonchi, clear to auscultation bilateral + coarse breath sounds bilaterally Cardiovascular: RRR, no significant murmur, no rub Gastrointestinal: soft, non-tender, no distention, positive bowel sounds Musculoskeletal: no edema Dx/Plan (1) MRSA bacteremia Code(s): R78.81 - BACTEREMIA Status: Acute (2) Acute and chronic respiratory failure with hypoxia Code(s): J96.21 - ACUTE AND CHRONIC RESPIRATORY FAILURE WITH HYPOXIA Status: Acute Comment: Improved, continue O2 support via NC, pulmonary supportive measures (3) COPD exacerbation Code(s): J44.1 - CHRONIC OBSTRUCTIVE PULMONARY DISEASE W (ACUTE) EXACERBATION Status: Acute Comment: Improving, pt on oral steroids (4) Kyphoscoliosis Code(s): M41.9 - SCOLIOSIS, UNSPECIFIED Status: Chronic Comment: stable (5) MADELINE (obstructive sleep apnea) Code(s): G47.33 - OBSTRUCTIVE SLEEP APNEA (ADULT) (PEDIATRIC) Status: Chronic Comment: Nocturnal CPAP (6) Acute on chronic combined systolic and diastolic CHF, NYHA class 3 Code(s): I50.43 - ACUTE ON CHRONIC COMBINED SYSTOLIC AND DIASTOLIC HRT FAIL Status: Acute - Plan * MRSA Bacteremia- will continue Vancomycin IV- Echo results were noted- awaiting final recommendations from ID * Will order PICC line * COPD- stable * Ventricular and Atrial arrhythmias - further recommendations from EP- his dose of Tikosyn has been adjusted, and he has been changed to Metoprolol * Chronic systolic heart failure- compensated * AFIB- his dose of Eliquis has been decreased due to hemoptysis * Continue PT/OT.
[2018-03-21] MEDS: Vancomycin HCl 1 GM in Premix Bag 1 BAG IVPB SCH ×2 (13:02→23:40)
[2018-03-21] MEDS ORDERED: Dofetilide 0.125 MG CAP PO SCH (13:15)
[2018-03-21] MEDS: Dofetilide 0.25 MG CAP PO SCH (13:50)
--- NOTE | 2018-03-21 17:27 | PRG ---
DATE OF SERVICE: 03/21/2018 SUBJECTIVE: Mr. Rosa is feeling better. Shortness of breath is improving steadily day by day. Denies any headaches. No cough. No abdominal pain. OBJECTIVE: VITAL SIGNS: T-max 98.5, blood pressure 120/70, pulse 64, respirations 16, and O2 sat 97%. GENERAL: Appears in no distress. LUNGS: Clear. HEART: S1, S2. Regular rate. ABDOMEN: Soft. SKIN: AICD pocket site appears normal. LABORATORY DATA: White cell count 13.6, hemoglobin 11, and platelets 179. Creatinine was 0.67. Liver profile normal. Microbiology with multiple cultures positive for MRSA. Echocardiogram report was not remarkable. No vegetations noted. ASSESSMENT AND DISCUSSION: 1. Kyphoscoliosis with cardiomyopathy. 2. Restrictive lung disease. 3. Automated implantable cardioverter-defibrillator recently placed and now methicillin-resistant Staphylococcus aureus bacteriemia of unknown primary site with concern for automated implantable cardioverter-defibrillator colonization. At this point, we would recommend long-term treatment with IV vancomycin and I have entered orders for the caseworker intake. The alternate approach will be to do a BERNICE to verify that he does not have lead colonization, but those can be difficult to interpret sometimes, so I think it is reasonable to just treat empirically for 6 weeks and then hope that the bacteremia does not return. May consider suppressive doxycycline after completion of the IV vancomycin phase. Job ID: [id number]
--- NOTE | 2018-03-21 17:27 | PRG ---
DATE OF SERVICE: 03/21/2018 SUBJECTIVE: Mr. Rosa seems to be doing fair, receiving a PICC line today. Continues on vancomycin for antibiotics. No overt signs of sepsis. OBJECTIVE: VITAL SIGNS: Blood pressure 130/71, heart rate 85, respiratory rate 14, temperature 97.9 degrees Fahrenheit. PHYSICAL EXAMINATION: GENERAL: Alert and oriented man, in no apparent distress. Severe kyphoscoliosis. NECK: Supple. Jugular veins are not distended. CHEST: Coarse. No crackles. Few wheezes at the left precordial ICD insertion site without sign of hematoma or infection, healing adequately. ABDOMEN: Benign. Bowel sounds are positive. EXTREMITIES: Lower extremities without edema, cyanosis, or clubbing. DATABASE: Lab data: No new lab work is noted. Telemetry strips revealed sinus rhythm, occasional PAC runs. ASSESSMENT AND PLAN: 1. Mr. Rosa is a 77-year-old man with prior history of severe kyphoscoliosis, also nonischemic cardiomyopathy and ventricular tachycardia with ICD in place. He also has severe chronic obstructive pulmonary disease. Now, he is admitted with chronic obstructive pulmonary disease exacerbation, but developed also MSSA bacteremia as well as Staphylococcus infection in the urine was noted. Currently, receiving vancomycin. 2D echo was performed revealing no evidence of vegetations in the cardiac structures. He seems to be responding well to vancomycin clinically. Plan is long-term antibiotics. 2. I agree with the current management regarding his bacteremia. If recurrent infections occur, BERNICE might be beneficial ultimately before a safe device evacuation could be necessitated, although hopefully, we can avoid that. 3. Paroxysmal atrial fibrillation and flutter. Currently, reasonably suppressed with moderate-dose Tikosyn, continue as is. 4. History of ventricular tachycardia, not torsade like and detected and terminated by the device. Continue monitoring. Job ID: [id number]
[2018-03-21] MEDS: Dofetilide 0.125 MG CAP PO SCH (21:48)
[2018-03-22 05:17] LABS: Anion Gap 13 mmol/L (10-20); BUN (Urea Nitrogen) 26 mg/dL (8.4-25.7); Calc. Creatinine Clearance 98 mL/min (70-130); Calcium 9.2 mg/dL (7.8-10.44); Carbon Dioxide 34 mmol/L (23-31); Chloride 94 mmol/L (98-107); Estimated GFR-MDRD Greater than 90; Glucose 147 mg/dL (83-110); Potassium 3.7 mmol/L (3.5-5.1); Sodium 137 mmol/L (136-145)
[2018-03-22] MEDS: Mometasone/Formoterol 120 PUFF INHALER INH SCH (06:29)
[2018-03-22] MEDS: Apixaban 2.5 MG TAB PO SCH (08:54)
[2018-03-22] MEDS: Dofetilide 0.125 MG CAP PO SCH (08:55)
[2018-03-22] MEDS: Loratadine 10 MG TAB PO SCH (08:55)
[2018-03-22] MEDS: Atorvastatin Calcium 20 MG TAB PO SCH (08:55)
[2018-03-22] MEDS: predniSONE 20 MG TAB PO SCH (08:55)
[2018-03-22] MEDS: Famotidine 20 MG TAB PO SCH (08:56)
[2018-03-22] MEDS: Multivit, Therapeutic 1 TAB PO SCH (08:56)
[2018-03-22] MEDS: Metoprolol Tartrate 25 MG TAB PO SCH (08:56)
[2018-03-22] MEDS: Furosemide 40 MG TAB PO SCH ×2 (08:56→14:30)
[2018-03-22] MEDS: guaiFENesin ER 600 MG TAB PO SCH (08:56)
[2018-03-22] MEDS: Famotidine/PF 20 mg/2ml Vial SLOW IVP SCH (08:57)
--- NOTE | 2018-03-22 10:49 | PDOC.PN ---
- Subjective Encounter Start Date: 03/22/18 Encounter Start Time: 10:47 Mr. Rosa was seen today in follow-up of MRSA Bacteremia, and COPD exacerbation. He does not have any complaints other than he is frustrated that he hasn't had the PICC line placed yet, and that he is still in the hospital. - Objective Resuscitation Status - Order Detail: 03/21/18 12:04 Resuscitation Status Routine Resuscitation Status: FULL: Full Resuscitation MAR Reviewed: Yes Vital Signs & Weight: Vital Signs (12 hours) Temp Pulse Resp BP Pulse Ox 03/22/18 07:34 98.5 F 95 18 127/60 97 03/22/18 06:30 100 03/22/18 06:27 96 20 100 03/22/18 03:54 98.7 F 95 20 103/57 L 91 L 03/22/18 00:44 93 16 100 03/22/18 00:00 99.1 F 85 20 124/69 100 Weight Admit Weight 162 lb 4.16 oz Weight 151 lb 1.6 oz I&O: 03/21/18 03/22/18 03/23/18 06:59 06:59 06:59 Intake Total 1950 1900 Output Total 3400 3100 Balance -1450 -1200 Result Diagrams: 03/17/18 04:15 03/22/18 04:36 Phys Exam - Physical Examination HEENT: PERRLA Respiratory: no wheezing, no rales, no rhonchi, clear to auscultation bilateral Cardiovascular: RRR, no rub 1/6 systolic murmur Gastrointestinal: soft, non-tender, no distention, positive bowel sounds Musculoskeletal: no edema Dx/Plan (1) MRSA bacteremia Code(s): R78.81 - BACTEREMIA Status: Acute (2) Acute and chronic respiratory failure with hypoxia Code(s): J96.21 - ACUTE AND CHRONIC RESPIRATORY FAILURE WITH HYPOXIA Status: Acute Comment: Improved, continue O2 support via NC, pulmonary supportive measures (3) COPD exacerbation Code(s): J44.1 - CHRONIC OBSTRUCTIVE PULMONARY DISEASE W (ACUTE) EXACERBATION Status: Acute Comment: Improving, pt on oral steroids (4) Kyphoscoliosis Code(s): M41.9 - SCOLIOSIS, UNSPECIFIED Status: Chronic Comment: stable (5) MADELINE (obstructive sleep apnea) Code(s): G47.33 - OBSTRUCTIVE SLEEP APNEA (ADULT) (PEDIATRIC) Status: Chronic Comment: Nocturnal CPAP (6) Acute on chronic combined systolic and diastolic CHF, NYHA class 3 Code(s): I50.43 - ACUTE ON CHRONIC COMBINED SYSTOLIC AND DIASTOLIC HRT FAIL Status: Acute - Plan * MRSA Bacteremia- he is being wheeled down to have the PICC line now- Continue IV Vancomycin * COPD- stable * Atrial and Ventricular arrhythmia's- continue Tikosyn and Metoprolol * Chronic diastolic heart failure- stable * MADELINE- stable * Plan is for Rehab placement prior to going home.
--- NOTE | 2018-03-22 12:31 | PRG ---
DATE OF SERVICE: 03/21/2018 OBJECTIVE: VITAL SIGNS: Afebrile. Heart rate 64, respiratory rate 16, oximetry is 97, and blood pressure 128/70. LUNGS: Clear. HEART: Regular rhythm. ABDOMEN: Soft. IMPRESSION: 1. Methicillin-resistant Staphylococcus aureus bacteremia, not clinically apparent on admission. 2. Rapid atrial fibrillation on admission with congestive heart failure. 3. Asthma. 4. Ventricular tachycardia, apparently terminated by defibrillator. 5. Severe kyphoscoliosis. PLAN: Continue antimicrobial therapy, placement of , eventual placement in rehab. Job ID: [id number]
[2018-03-22 13:29] LABS: Vancomycin, Trough 13.9 ug/mL
[2018-03-22] MEDS: Vancomycin HCl 1 GM in Premix Bag 1 BAG IVPB SCH (13:59)
[2018-03-22] MEDS ORDERED: Vancomycin HCl 1.25 GM in Sodium Chloride 0.9% 250 ML 250 ML IVPB SCH (14:00)
--- NOTE | 2018-03-22 14:12 | SPC ---
PICC PLACEMENT ULTRASOUND GUIDED VENOUS ACCESS: (Peripherally Inserted Central Catheter) JODIE: 03/22/2018. HISTORY: A 77-year-old male with septicemia/bacteremia, recurring long-term IV antibiotics. TECHNIQUE: Catheter caliber: 5 Tongan. Catheter lumen number: Double. Catheter tip location: Superior vena cava/right atrial junction. Vein accessed: Right basilic. Signed, informed consent was obtained. A tourniquet was applied at the proximal aspect of the arm. The arm was prepared and draped in the usual sterile fashion. A 25 gauge needle was used to apply bu ffered lidocaine superficially. The vein was punctured with a 21 gauge micropuncture needle under ul trasound guidance. A 0.018 inch guide wire was advanced through the micropuncture needle and into th e vein. Under fluoroscopic guidance, the guide wire was advanced to the right atrium. The PICC (per ipherally inserted central catheter) was flushed and trimmed to the appropriate length. The skin pun cture hole was widened with a blade. The micropuncture needle was exchanged over the guide wire for a 5 Tongan peel-away dilator sheath. The dilator was exchanged over the guide wire for the PICC, whi ch was then further advanced under fluoroscopy. The sheath and guide wire were removed. The PICC wa s flushed again and secured in place at the arm. The patient tolerated the procedure well. There wa s no complication. IMPRESSION: Successful placement of PICC (peripherally inserted central catheter) michell [] POS: [facility]
[2018-03-22 15:23] VITALS: BP 100/48; TEMP 97.4
--- NOTE | 2018-03-22 16:33 | PDOC.CTH ---
Cardiology Progress Note - Subjective EP progress note:03/22/18 Patient seen and evaluated. No new cardiac concerns or complaints today. Denies heart racing, palpitations, chest pain/pressure, dizziness, or passing out. No stroke like symptoms. - Objective Vital Signs Temp Pulse Resp BP Pulse Ox 03/22/18 15:23 97.4 F L 19 100/48 L 03/22/18 13:15 98 20 03/22/18 11:05 98.2 F 90 18 131/71 100 03/22/18 08:00 97 03/22/18 07:34 98.5 F 95 18 127/60 97 03/22/18 06:30 100 03/22/18 06:27 96 20 100 Admit Weight 162 lb 4.16 oz Weight 151 lb 1.6 oz 03/21/18 03/22/18 03/23/18 06:59 06:59 06:59 Intake Total 1950 1900 Output Total 3400 3100 Balance -1450 -1200 - Physical Examination General/Neuro: alert & oriented x3, NAD Neck: carotid US brisk, no JVD present Lungs: CTA, unlabored respirations Heart: PMI normal Abdomen: NT/ND, soft - Telemetry Telemetry Rhythm: SR with frequent ectopy - Labs Result Diagrams: 03/17/18 04:15 03/22/18 04:36 Troponin/CKMB CK-MB (CK-2) 4.2 ng/mL (0-6.6) 03/08/18 17:27 Troponin I 0.057 ng/mL (< 0.028) H 03/08/18 17:27 - Assessment/Plan 1. Paroxysmal Atrial arrhythmias (MAT and atypical flutter) -No in Sinus rhythm. QTc stable. Tikosyn back at 250mcg BID. QTc stable. -asymptomatic. -poor candidate for PVAI with his severe kyphosis. No typical flutter seen. -Stopping coreg in favor of metoprolol which is more cardio-selective. Diltiazem can potentiate Tikosyn so this will be avoided for rate control. 2. Frequent PVC 3. Chronic cardiomyopathy 4. Congestive heart failure 5. Dual Chamber ICD -incision healing well without infection or signs of complication. Deviced check this hospitalization 6. CHADS2-VASC: 4 - on low dose eliquis. Continue reduced dose with his recent hemoptysis and bruising issues. 7. COPD exacerbation - Relies heavily on his albuterol inhaler which will antagonize atrial arrhythmias. 8. Hypotension -resolved. Will change from metoprolol tartrate to succinatee with his cardiomyopathy. 9. MRSA bacteremia. -On Vancomycin. ECHO pending to rule out endocarditis. monitor for recurrence after extended course. -If recurrence despite can consider device evacuation. 10. Ventricular tachycardia/fibrillation -ICD discharge as outpatient per ICD report. Not torsades like. Detected and terminated by device. Atrial arrhythmias moderately suppressed with tikosyn. His only other option that would be more effective would be amiodarone but this is a suboptimal option with his chronic lung issues. For now arrhythmias are paroxysmal and tikosyn did help stabilize him significantly. Continue Tikosyn and eliquis at DC as currently ordered.
[2018-03-22] MEDS ORDERED: Acetaminophen 325 MG TAB PO PRN (16:41)
--- NOTE | 2018-03-22 18:21 | PRG ---
DATE OF SERVICE: 03/22/2018 SUBJECTIVE: Moe is doing well go to rehab today. OBJECTIVE: His lungs are clear. He is in no distress. He had a PICC line in place today. IMPRESSION: 1. Methicillin-resistant Staphylococcus aureus bacteremia. 2. Paroxysmal atrial arrhythmias. 3. Asthma. 4. Kyphoscoliosis. 5. Systolic cardiomyopathy. 6. rehab. Job ID: [id number]
[2018-03-23] MEDS ORDERED: predniSONE 20 MG TAB PO SCH (08:00)
--- NOTE | 2018-03-23 15:05 | DIS ---
DATE OF ADMISSION: 03/08/2018 DATE OF DISCHARGE: 03/22/2018 PRIMARY CARE PHYSICIAN: Dr. Jody Chand. DISCHARGE DISPOSITION: To inpatient rehab. DISCHARGE DIAGNOSES: 1. Acute respiratory failure with hypoxemia secondary to chronic obstructive pulmonary disease exacerbation. 2. Methicillin-resistant Staphylococcus aureus bacteremia. 3. Ventricular arrhythmia. 4. Atrial arrhythmia. 5. Severe kyphoscoliosis. 6. Chronic systolic heart failure with an ejection fraction of approximately 30%. 7. Obstructive sleep apnea. DISCHARGE MEDICATIONS: Include: 1. Ventolin inhaler 2 puffs q.4 p.r.n. 2. Lipitor 20 mg daily. 3. Pulmicort ampules 1 inhalation daily. 4. Benadryl 25 mg q.4 as needed. 5. Dofetilide 125 mcg twice a day. 6. Vitamin D 5000 units daily. 7. Flonase nasal spray twice a day. 8. Breo Ellipta 100/25 mcg, one inhalation daily. 9. Furosemide 40 mg daily. 10. Claritin 10 mg daily. 11. Multivitamin once a day. 12. Omeprazole 20 mg daily. 13. Trazodone 50 mg daily. 14. Eliquis 2.5 mg twice daily. 15. Aspirin 81 mg daily. 16. Pepcid 20 mg twice a day. 17. Zestril 2.5 mg daily. 18. Metoprolol 12.5 mg twice a day. 19. Prednisone 20 mg daily. 20. Vancomycin 1.25 g IV q.12. PROCEDURES DONE DURING ADMISSION: The patient had a CT scan of the chest, abdomen, and pelvis. There were some findings suggestive of mild CHF as well as a hematoma involving the right lower rectus sheath with some hemorrhage extending into the right lower extraperitoneal space causing mild mass effect on the bladder. The patient also had an echocardiogram which was negative for any vegetations. The ejection fraction was 30% to 35%. CODE STATUS: Full code. ALLERGIES: TO IBUPROFEN. HOSPITAL COURSE: Mr. Rosa is a pleasant 77-year-old gentleman, who was admitted to the hospital after having complaints of shortness of breath. He was found to have an exacerbation of COPD. His therapy was made difficult due to his severe kyphoscoliosis. The patient also had some mild volume overload and was diuresed. The patient was noted on admission to have a bruising in the truncal area. A CT scan was obtained and showed a rectus sheath hematoma. For this reason, the dose of Eliquis was decreased from 5 mg to 2.5 mg twice daily. The patient developed fever during the hospital stay. Blood cultures were drawn and grew MRSA out of multiple blood cultures. For this reason, there was concern for colonization of the newly placed AICD. An echocardiogram was obtained which was negative for any vegetations. Therefore, evacuation of the AICD was not performed. We opted not to do a transesophageal echo due to his severe kyphoscoliosis and hopefully at the end of the 6-week course of IV antibiotics, there will be no reoccurrence of the bacteremia. If the bacteremia does in fact reoccur after treatment, then BERNICE may need to be performed in consideration of removal of the AICD. The patient was quite deconditioned as a result of his condition and therefore will be transferred to the inpatient rehabilitation unit for continued physical therapy. Following this, the plan is for the patient's daughter to help with administration of the IV antibiotics. Job ID: [id number]
== END 2018-03-22 17:30 | DRG 291 ==
LOC: ERS 17:02 → IMCU/EMU 22:55 → ERHOLD 23:38 → IMCU/EMU 03-09 01:14 → UNDODISIN 03-15 17:45
PROVIDERS: ADMIT Internal Medicine; ATTEND Internal Medicine
PROC: 02HV33Z Insertion of Infusion Device into Superior Vena Cava, Percutaneous Approach (ICD-10-PCS; principal; 2018-03-22)
PROC: B548ZZA Ultrasonography of Superior Vena Cava, Guidance (ICD-10-PCS; 2018-03-22)
DX: I50.23 Acute on chronic systolic (congestive) heart failure (principal); J96.21 Acute and chronic respiratory failure with hypoxia; A41.02 Sepsis due to Methicillin resistant Staphylococcus aureus; J18.9 Pneumonia, unspecified organism; J44.1 Chronic obstructive pulmonary disease with (acute) exacerbation; I42.9 Cardiomyopathy, unspecified; I47.2 Ventricular tachycardia; D62 Acute posthemorrhagic anemia; J45.909 Unspecified asthma, uncomplicated; I27.81 Cor pulmonale (chronic); G47.33 Obstructive sleep apnea (adult) (pediatric); M41.9 Scoliosis, unspecified; K21.9 Gastro-esophageal reflux disease without esophagitis; I48.2 Chronic atrial fibrillation; M06.9 Rheumatoid arthritis, unspecified; M79.81 Nontraumatic hematoma of soft tissue; Z79.01 Long term (current) use of anticoagulants; Z86.73 Personal history of transient ischemic attack (TIA), and cerebral infarction without residual deficits; Z87.891 Personal history of nicotine dependence; Z95.810 Presence of automatic (implantable) cardiac defibrillator
CPT/HCPCS: 36415; 36416; 36569; 71045; 71260; 74177; 80048; 80053; 80202; 81003; 82553; 82805; 83605; 83690; 83735; 83880; 84484; 85007; 85014; 85018; 85025; 85027; 85610; 85730; 86850; 86900; 86901; 87040; 87077; 87086; 87149; 87186; 93005; 93010; 93306; 93798; 94640; 94660; C1751; G8978-GP-CK; G8979-GP-CJ; J1940; J2543; J3370; J7050; J7506; J7611; J7620; J8499; S0028

== ENCOUNTER 2018-04-13 22:49 | Inpatient (IN) | payer MEDICARE ==
[2018-04-13 23:34] LABS: #Basophils 0.1 thou/uL (0.0-0.2); #Lymphocytes 0.7 thou/uL (1.20-3.40); #Monocytes 0.6 thou/uL (0.11-0.59); #Neutrophils 4.8 thou/uL (1.40-6.50); %Eosinophils 0.5 % (0.0-10.0); %Lymphocytes 11.6 % (21.0-51.0); %Neutrophils 76.9 % (42.0-75.0); Hemoglobin 11.4 g/dL (14.0-18.0); Mean Corpuscular HGB CONC 31.1 g/dL (32.0-36.0); Mean Corpuscular Hemoglobin 32.6 pg (27.0-31.0); Mean Platelet Volume 7.7 fL (7.4-10.4); Platelet Count 160 thou/uL (130-400); RBC Distribution Width 14.8 % (11.5-14.5); Red Blood Cell (RBC) Count 3.51 mill/uL (4.70-6.10); White Blood Cell (WBC) Count 6.3 thou/uL (4.8-10.8)
[2018-04-13] MEDS ORDERED: Metoclopramide HCl 10 MG/2 ML VIAL ONE (23:38)
[2018-04-13] MEDS ORDERED: methylPREDNISolone Sod Succ/PF 125 MG/2 ML VIAL ONE (23:38)
--- NOTE | 2018-04-13 23:47 | RAD ---
PORTABLE CHEST: 04/13/18 PROVIDED CLINICAL HISTORY: Dyspnea. FINDINGS: Comparison 03/19/18. The cardiac silhouette remains prominently enlarged. Left subclavian cardiac pacing device is again s een in similar position. Right infrahilar density is similar to the prior study. Left hemidiaphragm i s again not well seen. There is no evidence for pneumothorax. IMPRESSION: Stable radiographic appearance of the chest. POS: [facility]
[2018-04-13 23:57] LABS: ALT (SGPT) 37 U/L (8-55); AST (SGOT) 39 U/L (5-34); Albumin 2.7 g/dL (3.4-4.8); Alkaline Phosphatase 70 U/L (40-150); Anion Gap 11 mmol/L (10-20); BUN (Urea Nitrogen) 11 mg/dL (8.4-25.7); Bilirubin, Total 0.3 mg/dL (0.2-1.2); Calc. Creatinine Clearance 0 mL/min (70-130); Calcium 8.7 mg/dL (7.8-10.44); Carbon Dioxide 31 mmol/L (23-31); Chloride 102 mmol/L (98-107); Estimated GFR-MDRD Greater than 90; Globulin 1.9 g/dL (2.4-3.5); Glucose 93 mg/dL (83-110); Potassium 4.4 mmol/L (3.5-5.1); Protein, Total 4.6 g/dL (5.8-8.1); Sodium 140 mmol/L (136-145)
[2018-04-14 00:17] LABS: CKMB 5.3 ng/mL (0-6.6)
[2018-04-14] MEDS ORDERED: Furosemide 20 MG/2 ML VIAL ONE (00:24)
[2018-04-14] MEDS ORDERED: Furosemide 40 MG/4 ML VIAL ONE (00:24)
[2018-04-14] MEDS ORDERED: Ondansetron ODT 4 MG TAB SL PRN (02:22)
[2018-04-14] MEDS ORDERED: Ondansetron PF 4 MG/2 ML Vial IVP PRN (02:22)
[2018-04-14] MEDS ORDERED: Acetaminophen 325 MG TAB PO PRN (02:22)
[2018-04-14 02:57] VITALS: BMI 27.0
--- NOTE | 2018-04-14 05:03 | HP ---
CHIEF COMPLAINT: Shortness of breath. HISTORY OF PRESENT ILLNESS: The patient is a 77-year-old male with a fairly extensive past medical history including congestive heart failure and COPD. The patient has a history of severe kyphoscoliosis and history of polio causing him to have some restrictive issues of his chest cavity. The patient reports that he had some mild shortness of breath that started yesterday and became more severe today. The patient has not had any cough, sputum production, or fevers or chills. He does report that he has had some increased edema of his lower extremities. Of late, he has had no associated chest pain. The patient called an ambulance when his shortness of breath became severe enough, then he received nebulizer treatments in the ambulance. In the emergency department, he also received a dose of Lasix. He was voiding reasonably well with that, but subsequently was noted to have some drop in his urine output and bladder scan indicated he might have some retention, so a Bernabe catheter was placed. Presently, the patient reports that he is actually feeling somewhat better. He believes it was due to the diuresis that is making him feel better. REVIEW OF SYSTEMS: The patient reported some osteoarthritis pain of the joints. He also reported lower extremity edema. Other than that, all systems were reviewed and all pertinent positives and negatives were noted in the history of present illness. PAST MEDICAL HISTORY: Notable for COPD, history of atrial fibrillation, history of ventricular arrhythmia, congestive heart failure, asthma, history of CVA and severe kyphoscoliosis with thoracic anatomic abnormality, history of polio remotely, chronic systolic heart failure with an ejection fraction of approximately 30%, obstructive sleep apnea, history of MRSA bacteremia. FAMILY HISTORY: There is no history of significant coronary artery disease, stroke, or cancer. SOCIAL HISTORY: The patient is a former smoker, but quit many years ago. No history of alcohol or drug abuse. He is full code. His son and daughter would be his surrogate decision makers should that become necessary. ALLERGIES: IBUPROFEN. MEDICATIONS: 1. Albuterol. 2. Prilosec 20 daily. 3. Claritin 10 daily. 4. Ecotrin 325 daily. 5. Lasix 40 daily. 6. Temazepam 15 at bedtime. 7. Albuterol inhaler. 8. Coreg 3.125 p.o. b.i.d. 9. Lisinopril 2.5 daily. 10. Prednisone 40 mg daily. 11. Keflex 500 q.6. 12. Breo Ellipta one inhalation daily. 13. Lipitor 20 mg daily. PHYSICAL EXAMINATION: VITAL SIGNS: BP 154/74, pulse 74, respirations 19, temp 98.1, and O2 saturation 100% on BiPAP. GENERAL APPEARANCE: Age-appropriate male. He is lying supine, which is where he is most comfortable in hospital bed. He has the BiPAP in place. He is awake. He is conversant and able to speak in almost complete sentences with the BiPAP on. HEENT: PERRL. Eyes, no OP lesions. NECK: Supple and symmetric. HEART: Regular without murmurs. LUNGS: Notable for only minimal basilar rales bilaterally. The patient does have significant anatomic abnormality of the thoracic cavity due to the kyphoscoliosis. ABDOMEN: Soft, nontender, and nondistended. Positive bowel sounds. EXTREMITIES: There is 1+ pitting edema of the ankles bilaterally. NEUROLOGIC: The patient appears to be neurologically intact with spontaneous movement of the extremities and no focal deficits. PSYCH: The patient has normal affect and behavior. LABORATORY DATA: White count 6.3, hemoglobin 11.4, platelets 160, 77 neutrophils, 11.6 lymphocytes. Sodium 140, potassium 4.4, chloride 102, CO2 of 31, BUN 11, creatinine 0.72, glucose 93, calcium 8.7, AST is 39, ALT 37. Troponin 0.053 and subsequently 0.043. BNP 2562. Albumin 2.7. Chest x-ray shows prominent cardiac silhouette, right infrahilar density similar to the prior study of 03/19/2018. IMPRESSION AND PLAN: 1. Acute hypoxic respiratory failure requiring BiPAP, likely secondary to congestive heart failure exacerbation with comorbid chronic obstructive pulmonary disease. 2. Congestive heart failure exacerbations. The patient has a history of congestive heart failure with an ejection fraction of approximately 30%. The patient is on appropriate daily oral regimen and has received additional IV Lasix in the emergency department. He is responding reasonably well to that, although he has not had overwhelming amount of urine output. He is clinically somewhat better. The patient also received nebulizer treatments and Solu-Medrol in the emergency department. The patient will need to be resumed on his usual Lasix and beta maureen medications. 3. Chronic obstructive pulmonary disease exacerbation. Continue oxygen support, nebulizers as needed, cover with steroids. No indication at this point that he specifically needs antibiotics. 4. Hyperlipidemia. Continue with Lipitor. Job ID: [id number]
[2018-04-14] MEDS ORDERED: PROVENTIL INHALER 6.7 G (200 INHALATIONS) INH PRN (06:00)
[2018-04-14] MEDS ORDERED: Dofetilide 0.25 MG CAP PO SCH (09:00)
[2018-04-14] MEDS ORDERED: Furosemide 40 MG TAB PO SCH (09:00)
--- NOTE | 2018-04-14 09:38 | CON ---
DATE OF CONSULTATION: HISTORY OF PRESENT ILLNESS: Jordy Rosa is a 77-year-old gentleman with severe kyphoscoliosis, cardiomegaly, end-stage lung disease, who sees Dr. Medrano for his pulmonary issues, presented last night with shortness of breath, unresponsive to his usual home medication. This morning, he is on BiPAP and complains of difficulty breathing when he raised his head. He says he feels more comfortable lying completely supine. His saturations are 97% on 2 L, his blood pressure was 113/49, respiratory rate 18, temperature 98 when he came in last night. He denies any chills or sweats. He has had history of post-polio associated complication with significant kyphoscoliosis. His BNP was markedly elevated. PAST MEDICAL HISTORY: 1. 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 PAST SURGICAL HISTORY: Hernia surgeries, left elbow drainage. SOCIAL HISTORY: Tobacco, former smoker, quit smoking 10 years ago. No alcohol. MEDICATIONS: From home include, 1. Prednisone 20. 2. Lisinopril 2.5. 3. Lasix 40. 4. Breo inhaler. 5. Tikosyn 250. 6. Eliquis 2.5 twice a day. 7. Omeprazole. 8. Metoprolol 12.5. 9. Inhaler. ALLERGIES: IBUPROFEN. REVIEW OF SYSTEMS: Otherwise 10 point negative. PHYSICAL EXAMINATION: VITAL SIGNS: His saturations on the BiPAP this morning 95, respiratory rate 20, temperature 98, and blood pressure 109/52. CHEST: Decreased breath sounds. No wheezing. CARDIAC: Normal S1, S2. ABDOMEN: No hepatosplenomegaly or mass. LABORATORY DATA: White count 6000, H and H unremarkable. Lytes are normal. X-ray shows cardiomegaly. BNP 2561. IMPRESSION: 1. Respiratory failure, multifactorial. 2. Congestive heart failure. 3. Chronic obstructive pulmonary disease. 4. Kyphoscoliosis . 5. Major anxiety. PLAN: Continue antibiotics, neb treatments, and steroids. Trial of BiPAP, probably needs nocturnal ventilation. Consultation note, 70 minutes, of which 50% in direct patient care. Job ID: [id number]
[2018-04-14] MEDS: Lisinopril 2.5 MG TAB PO SCH (10:56)
[2018-04-14] MEDS: Apixaban 2.5 MG TAB PO SCH ×2 (10:56→19:44)
[2018-04-14] MEDS: Potassium Chloride 20 MEQ TAB PO SCH (10:57)
[2018-04-14] MEDS: Multivitamin W/ Minerals 1 TAB PO SCH (10:57)
[2018-04-14] MEDS: Metoprolol Tartrate 25 MG TAB PO SCH ×2 (10:59→19:46)
[2018-04-14] MEDS: Aspirin 81 mg Enteric Coated Tablet PO SCH (11:00)
[2018-04-14] MEDS: Atorvastatin Calcium 20 MG TAB PO SCH (11:00)
[2018-04-14] MEDS: Famotidine 20 MG TAB PO SCH ×2 (11:00→19:46)
[2018-04-14] MEDS: Polyethylene Glycol 3350 17 GM Packet PO SCH (11:00)
[2018-04-14] MEDS: Mometasone/Formoterol 120 PUFF INHALER INH SCH ×2 (13:55→18:25)
--- NOTE | 2018-04-14 15:41 | PDOC.EVN ---
Event Note - Event Note Event Note: Please see H and P from Dr. Kirkland. Patient breathing better, some pain with Bernabe
[2018-04-14] MEDS ORDERED: Vancomycin HCl 1.75 GM in Sodium Chloride 0.9% 500 ML IVPB SCH (17:00)
[2018-04-14] MEDS: Dofetilide 0.125 MG CAP PO SCH ×2 (17:35→19:45)
[2018-04-14] MEDS: Furosemide 40 MG/4 ML VIAL SLOW IVP SCH (17:36)
[2018-04-14] MEDS: Acetaminophen 325 MG TAB PO PRN (19:47)
[2018-04-15] MEDS: Acetaminophen 325 MG TAB PO PRN ×3 (00:55→20:02)
[2018-04-15] MEDS ORDERED: Phenazopyridine HCl 97.5 MG TABLET PO SCH (03:00)
[2018-04-15] MEDS: Vancomycin HCl 1.25 GM in Sodium Chloride 0.9% 250 ML 250 ML IVPB SCH ×2 (05:47→17:53)
[2018-04-15] MEDS: Furosemide 40 MG/4 ML VIAL SLOW IVP SCH ×2 (05:48→13:21)
[2018-04-15] MEDS: Mometasone/Formoterol 120 PUFF INHALER INH SCH ×2 (09:36→18:52)
[2018-04-15] MEDS: Aspirin 81 mg Enteric Coated Tablet PO SCH (10:17)
[2018-04-15] MEDS: Multivitamin W/ Minerals 1 TAB PO SCH (10:17)
[2018-04-15] MEDS: Metoprolol Tartrate 25 MG TAB PO SCH ×2 (10:17→20:00)
[2018-04-15] MEDS: Famotidine 20 MG TAB PO SCH ×2 (10:17→20:01)
[2018-04-15] MEDS: Atorvastatin Calcium 20 MG TAB PO SCH (10:17)
[2018-04-15] MEDS: Potassium Chloride 20 MEQ TAB PO SCH (10:17)
[2018-04-15] MEDS: Polyethylene Glycol 3350 17 GM Packet PO SCH (10:18)
[2018-04-15] MEDS: Apixaban 2.5 MG TAB PO SCH ×2 (10:19→19:59)
[2018-04-15] MEDS: Dofetilide 0.125 MG CAP PO SCH ×2 (10:19→19:59)
--- NOTE | 2018-04-15 11:17 | PRG ---
DATE OF SERVICE: 04/15/2018 SUBJECTIVE: This morning, he is better. He is not short of breath, less coughing, and less wheezing. OBJECTIVE: VITAL SIGNS: His blood pressure is 120/51, sats are 90% on 4 L, respiratory rate 20, and temperature 98. CHEST: Decreased breath sounds. No wheezing. CARDIAC: Normal S1 and S2. ABDOMEN: No masses. IMPRESSION: 1. Chronic obstructive pulmonary disease exacerbation. 2. Kyphoscoliosis. 3. Chronic pain. PLAN: Antibiotics per Infectious Disease. Pulmonary prajapati, he is much improved. Decrease his steroids. Eventually, transferred to a medical floor. Job ID: [id number]
--- NOTE | 2018-04-15 12:39 | PDOC.PN ---
- Subjective Encounter Start Date: 04/15/18 Encounter Start Time: 12:37 Subjective: Pain in the hammond site. Patient upset with the pain - Objective Resuscitation Status - Order Detail: 04/14/18 02:40 Resuscitation Status Routine Resuscitation Status: FULL: Full Resuscitation Discussed with: Bria NAVARRO Reviewed: Yes Vital Signs & Weight: Vital Signs (12 hours) Temp Pulse Resp BP BP Pulse Ox 04/15/18 11:20 93 20 91 L 04/15/18 09:36 86 20 98 04/15/18 08:00 100 04/15/18 07:48 100 04/15/18 07:47 77 20 100 04/15/18 07:41 98.2 F 86 17 120/51 L 100 04/15/18 03:00 97.8 F 86 17 126/71 97 04/15/18 01:27 95 04/15/18 01:03 107 H 24 H 93 L Weight Weight 167 lb 5.294 oz I&O: 04/14/18 04/15/18 04/16/18 06:59 06:59 06:59 Intake Total 865 Output Total 500 1300 Balance -500 -435 Result Diagrams: 04/13/18 23:19 04/13/18 23:19 Phys Exam - Physical Examination HEENT: PERRLA, moist MMs, sclera anicteric, TM's clear, oral pharynx no lesions , 2+ tonsils Neck: no nodes, no JVD, supple, full ROM On NC Oxygen, using accessory muscles scattered wheezes Cardiovascular: RRR, no significant murmur Gastrointestinal: soft, non-tender Musculoskeletal: no edema Neurological: non-focal, normal sensation, moves all 4 limbs Dx/Plan (1) Acute and chronic respiratory failure with hypoxia Code(s): J96.21 - ACUTE AND CHRONIC RESPIRATORY FAILURE WITH HYPOXIA Status: Acute Comment: Improved, continue O2 support via NC, pulmonary supportive measures (2) Acute on chronic combined systolic and diastolic CHF, NYHA class 3 Code(s): I50.43 - ACUTE ON CHRONIC COMBINED SYSTOLIC AND DIASTOLIC HRT FAIL Status: Acute Comment: Continue diuresis (3) COPD (chronic obstructive pulmonary disease) Status: Chronic Qualifiers: COPD type: COPD with acute exacerbation Qualified Code(s): J44.1 - Chronic obstructive pulmonary disease with (acute) exacerbation Comment: continue pulm nebs, abx and setroids (4) Chronic a-fib Code(s): I48.2 - CHRONIC ATRIAL FIBRILLATION Status: Chronic Comment: on anticoagulation - Plan cont current plan of care, continue antibiotics, respiratory therapy, DVT proph w/SCDs * .
[2018-04-15] MEDS ORDERED: Acetaminophen 325 MG TAB PO PRN (12:42)
[2018-04-15] MEDS: Phenazopyridine HCl 97.5 MG TABLET PO SCH ×2 (13:20→17:53)
[2018-04-15] MEDS: Lisinopril 2.5 MG TAB PO SCH (14:31)
[2018-04-15] MEDS ORDERED: Fluticasone Propionate Nasal Spray 16 gm Bottle NASAL SCH (17:45)
[2018-04-16 05:18] LABS: Vancomycin, Trough 22.2 ug/mL
[2018-04-16] MEDS: Furosemide 40 MG/4 ML VIAL SLOW IVP SCH ×2 (05:35→13:58)
[2018-04-16] MEDS: Vancomycin HCl 1.25 GM in Sodium Chloride 0.9% 250 ML 250 ML IVPB SCH (05:35)
[2018-04-16] MEDS: Mometasone/Formoterol 120 PUFF INHALER INH SCH ×2 (06:49→18:59)
[2018-04-16] MEDS: Apixaban 2.5 MG TAB PO SCH ×2 (09:51→20:26)
[2018-04-16] MEDS: Atorvastatin Calcium 20 MG TAB PO SCH (09:52)
[2018-04-16] MEDS: Aspirin 81 mg Enteric Coated Tablet PO SCH (09:52)
[2018-04-16] MEDS: Metoprolol Tartrate 25 MG TAB PO SCH ×2 (09:52→20:30)
[2018-04-16] MEDS: Multivitamin W/ Minerals 1 TAB PO SCH (09:54)
[2018-04-16] MEDS: Dofetilide 0.125 MG CAP PO SCH ×2 (09:54→20:26)
[2018-04-16] MEDS: Famotidine 20 MG TAB PO SCH ×2 (09:54→20:26)
[2018-04-16] MEDS: Potassium Chloride 20 MEQ TAB PO SCH (09:54)
[2018-04-16] MEDS: Fluticasone Propionate Nasal Spray 16 gm Bottle NASAL SCH (09:55)
[2018-04-16] MEDS: Phenazopyridine HCl 97.5 MG TABLET PO SCH ×3 (09:55→17:23)
[2018-04-16] MEDS: Polyethylene Glycol 3350 17 GM Packet PO SCH (10:01)
--- NOTE | 2018-04-16 10:36 | PRG ---
DATE OF SERVICE: 04/16/2018 SUBJECTIVE: This morning, he is awake, alert, and responsive. He is better, lying supine without any problems. OBJECTIVE: VITAL SIGNS: Saturations are 93% on 2 L, temperature 98, pulse 76, blood pressure 131/76. CHEST: Decreased breath sounds. No wheezing. CARDIAC: Normal S1 and S2. No gallops. ABDOMEN: No masses. IMPRESSION: 1. Chronic obstructive pulmonary disease. 2. Kyphoscoliosis. 3. Respiratory distress. 4. Major anxiety. PLAN: He is ready to go home any time. I would switch him over to oral prednisone, antibiotic as per Infectious Disease. Job ID: [id number]
--- NOTE | 2018-04-16 11:13 | CON ---
DATE OF CONSULTATION: 04/15/2018 REASON FOR CONSULTATION: Followup previous treatment course with IV vancomycin for his recently detected MRSA bacteremia in the setting of worsening dyspnea. HISTORY OF PRESENT ILLNESS: A 77-year-old, well known to us from recent visit when he was admitted with a history of severe kyphoscoliosis, restrictive lung disease, cardiomyopathy with a recent defibrillator placed. He also has a history of febrile illness in childhood, which was a sequelae of poliomyelitis. The patient gets admitted frequently for dyspnea and was admitted on March 18 with dyspnea as well. The assessment at that time included methicillin-resistant Staph aureus bacteremia with the possibility of colonization of the AICD device. In view of the difficulties with its change of the AICD as well as the risk of performing BERNICE, we recommended continuation of empiric treatment for 6 weeks with IV vancomycin. The patient now is readmitted because of worsening dyspnea, which started before admission, became more severe on the day of admission without sputum production. He did not have fever or chills, some edema of lower extremities. No chest pain. No diarrhea. He did have difficulty in passing urine and some dysuria. On arrival , he had BP 150/70, pulse 74, respirations 19, temperature 98.1, O2 saturation 100 on BiPAP. The lungs shows minimal inspiratory crackles at the bases and kyphoscoliosis. Abdomen is not distended. Initial labs demonstrated white cell count of 6.3, platelets 160 with 77% neutrophils. Sodium 140, AST 39, ALT 37. BNP 2500. Albumin 2.7. The chest x-ray showed prominent cardiac silhouette, although I think it is similar to prior study. The patient has been started on inhalers, aspirin, Lipitor, Tikosyn, Pepcid, Lasix, Zestril and continued vancomycin. Currently, he is awake. He is sitting, he usually likes to do it as it facilitates his breathing due to his kyphoscoliosis. This seems to be in a little bit of distress. Denies headaches. No sore throat, odynophagia, dysphagia. REVIEW OF SYSTEMS: Other 10-point review of systems as above. 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 FAMILY HISTORY: Noncontributory. SOCIAL HISTORY: Former smoker, who quit smoking many many years ago. ALLERGIES: IBUPROFEN. MEDICATIONS: Have been discussed above. PHYSICAL EXAMINATION: VITAL SIGNS: T-max 98.3, BP 100/70, O2 sats 99 with 2 L nasal cannula, respiratory rate 25. GENERAL: Appears in some distress. The patient has peripheral IV access and does have an indwelling Bernabe catheter. I's and O's have been negative for the past 48 hours. HEENT: Ocular movements conjugate. Numerous missing teeth. LUNGS: Symmetric air entry with no obvious crackles or wheezing. HEART: S1 and S2. Regular rate without murmurs. ABDOMEN: Soft, tender, distended. No bladder distention. LABORATORY DATA: White cell count 6.3, hemoglobin 11.4, platelets 160. Chemistry; sodium 140, creatinine 0.72. AST 39, ALT 37, alkaline phosphatase 70. Troponin 0.053. Albumin 2.7. Her last urinalysis is from February 25, it is pretty unremarkable. The last blood cultures are from March 17. I do not see samples of blood submitted for culture at this time. ASSESSMENT: 1. Severe kyphoscoliosis. 2. Cardiomyopathy. 3. Recent placement of AICD, S. aureus bacteremia detected in February this year. 4. Worsening dyspnea with evidence of volume overload, probably combination of restrictive lung disease and cardiomyopathy. Recrudescence of S. aureus bacteremia appears less likely. Continue vancomycin as previously planned. Our intention was to continue for 42 days, the end date of therapy would be around April 30 and then switching to oral doxycycline for chronic suppressive therapy assuming AICD colonization. Evidently, if blood culture turn positive now, then we wound have to consider removing the AICD. Other sites of involvement are not apparent at this point in time. Job ID: [id number] [facility]
[2018-04-16] MEDS: Lisinopril 2.5 MG TAB PO SCH (11:15)
[2018-04-16 12:14] LABS: BUN (Urea Nitrogen) 22 mg/dL (8.4-25.7); Calc. Creatinine Clearance 98 mL/min (70-130); Calcium 9.7 mg/dL (7.8-10.44); Estimated GFR-MDRD Greater than 90; Glucose 135 mg/dL (83-110)
[2018-04-16 12:22] LABS: Anion Gap 20 mmol/L (10-20); Carbon Dioxide 33 mmol/L (23-31); Chloride 95 mmol/L (98-107); Potassium 3.9 mmol/L (3.5-5.1); Sodium 144 mmol/L (136-145)
--- NOTE | 2018-04-16 13:52 | PDOC.PN ---
- Subjective Encounter Start Date: 04/16/18 Encounter Start Time: 13:51 Subjective: feeling better, but not yet baseline - Objective Resuscitation Status - Order Detail: 04/14/18 02:40 Resuscitation Status Routine Resuscitation Status: FULL: Full Resuscitation Discussed with: Patient MELANIE Reviewed: Yes Vital Signs & Weight: Vital Signs (12 hours) Temp Pulse Resp BP BP Pulse Ox 04/16/18 11:01 91 20 91 L 04/16/18 10:49 98.9 F 108 H 18 127/67 92 L 04/16/18 08:00 93 L 04/16/18 07:15 98.5 F 86 20 131/76 93 L 04/16/18 06:49 103 H 20 90 L 04/16/18 06:35 90 L 04/16/18 06:32 103 H 20 90 L 04/16/18 04:05 20 04/16/18 03:58 97.8 F 74 20 117/56 L 100 04/16/18 02:08 73 27 H 95 Weight Weight 167 lb 5.294 oz I&O: 04/15/18 04/16/18 04/17/18 06:59 06:59 06:59 Intake Total 865 1964 Output Total 1300 3650 Balance -435 -2256 Result Diagrams: 04/13/18 23:19 04/16/18 11:43 Phys Exam - Physical Examination HEENT: PERRLA, moist MMs, sclera anicteric, TM's clear, oral pharynx no lesions , 2+ tonsils Neck: no nodes, no JVD, supple, full ROM + coarse breath sounds, imrpoved from previous days Cardiovascular: RRR, no significant murmur Gastrointestinal: soft, non-tender Musculoskeletal: edema present scoliosis Neurological: non-focal, normal sensation, moves all 4 limbs Psychiatric: normal affect, A&O x 3 Skin: no rash, normal turgor, cap refill <2 seconds Dx/Plan (1) Acute and chronic respiratory failure with hypoxia Code(s): J96.21 - ACUTE AND CHRONIC RESPIRATORY FAILURE WITH HYPOXIA Status: Acute Comment: Improved, continue O2 support via NC, pulmonary supportive measures (2) Acute on chronic combined systolic and diastolic CHF, NYHA class 3 Code(s): I50.43 - ACUTE ON CHRONIC COMBINED SYSTOLIC AND DIASTOLIC HRT FAIL Status: Acute Comment: Continue diuresis (3) COPD (chronic obstructive pulmonary disease) Status: Chronic Qualifiers: COPD type: COPD with acute exacerbation Qualified Code(s): J44.1 - Chronic obstructive pulmonary disease with (acute) exacerbation Comment: continue pulm nebs, abx and setroids (4) Chronic a-fib Code(s): I48.2 - CHRONIC ATRIAL FIBRILLATION Status: Chronic Comment: on anticoagulation - Plan cont current plan of care, hammond catheter, continue antibiotics, respiratory therapy, DVT proph w/lovenox, DVT proph w/SCDs * .
[2018-04-16] MEDS: Acetaminophen 325 MG TAB PO PRN (14:05)
[2018-04-16] MEDS: Vancomycin HCl 1 GM in Premix Bag 1 BAG IVPB SCH (20:29)
[2018-04-17] MEDS: Furosemide 40 MG/4 ML VIAL SLOW IVP SCH ×2 (05:41→14:04)
[2018-04-17] MEDS: Mometasone/Formoterol 120 PUFF INHALER INH SCH ×2 (08:06→18:54)
[2018-04-17] MEDS: Fluticasone Propionate Nasal Spray 16 gm Bottle NASAL SCH (08:55)
[2018-04-17] MEDS: Potassium Chloride 20 MEQ TAB PO SCH (08:56)
[2018-04-17] MEDS: Famotidine 20 MG TAB PO SCH ×2 (08:56→20:17)
[2018-04-17] MEDS: Atorvastatin Calcium 20 MG TAB PO SCH (08:56)
[2018-04-17] MEDS: predniSONE 20 MG TAB PO SCH (08:56)
[2018-04-17] MEDS: Metoprolol Tartrate 25 MG TAB PO SCH ×2 (08:56→20:17)
[2018-04-17] MEDS: Lisinopril 2.5 MG TAB PO SCH (08:57)
[2018-04-17] MEDS: Multivitamin W/ Minerals 1 TAB PO SCH (08:57)
[2018-04-17] MEDS: Dofetilide 0.125 MG CAP PO SCH ×2 (08:58→20:18)
[2018-04-17] MEDS: Apixaban 2.5 MG TAB PO SCH ×2 (08:58→20:18)
[2018-04-17] MEDS: Aspirin 81 mg Enteric Coated Tablet PO SCH (08:58)
[2018-04-17] MEDS: Phenazopyridine HCl 97.5 MG TABLET PO SCH ×3 (08:59→17:20)
[2018-04-17] MEDS: Vancomycin HCl 1 GM in Premix Bag 1 BAG IVPB SCH ×2 (09:00→20:18)
[2018-04-17] MEDS: Acetaminophen 325 MG TAB PO PRN ×2 (09:00→20:17)
[2018-04-17] MEDS: Polyethylene Glycol 3350 17 GM Packet PO SCH (09:19)
--- NOTE | 2018-04-17 12:46 | PDOC.PN ---
- Subjective Encounter Start Date: 04/17/18 Encounter Start Time: 12:44 Subjective: feeling better - Objective Resuscitation Status - Order Detail: 04/14/18 02:40 Resuscitation Status Routine Resuscitation Status: FULL: Full Resuscitation Discussed with: Bria NAVARRO Reviewed: Yes Vital Signs & Weight: Vital Signs (12 hours) Temp Pulse Resp BP BP Pulse Ox 04/17/18 10:54 98.2 F 82 20 99/66 93 L 04/17/18 10:41 87 18 93 L 04/17/18 08:57 108/71 04/17/18 08:06 112 H 20 92 L 04/17/18 08:00 95 04/17/18 07:39 98.6 F 113 H 22 H 108/71 95 04/17/18 04:00 98.0 F 91 12 102/59 L 95 04/17/18 02:14 113 H 20 93 L Weight Weight 167 lb 5.294 oz I&O: 04/16/18 04/17/18 04/18/18 06:59 06:59 06:59 Intake Total 1964 1660 Output Total 3650 4273 Balance -6574 -5384 Result Diagrams: 04/13/18 23:19 04/16/18 11:43 Phys Exam - Physical Examination HEENT: PERRLA, moist MMs, sclera anicteric, TM's clear, oral pharynx no lesions , 2+ tonsils Neck: no nodes, no JVD, supple, full ROM Some scattered rales Cardiovascular: RRR, no significant murmur Gastrointestinal: soft, non-tender, no distention Musculoskeletal: edema present scoliosis Neurological: non-focal, normal sensation, moves all 4 limbs Psychiatric: normal affect, A&O x 3 Skin: no rash, normal turgor, cap refill <2 seconds Dx/Plan (1) Acute and chronic respiratory failure with hypoxia Code(s): J96.21 - ACUTE AND CHRONIC RESPIRATORY FAILURE WITH HYPOXIA Status: Acute Comment: Improved, continue O2 support via NC, pulmonary supportive measures. Aggressive diuresis (2) Acute on chronic combined systolic and diastolic CHF, NYHA class 3 Code(s): I50.43 - ACUTE ON CHRONIC COMBINED SYSTOLIC AND DIASTOLIC HRT FAIL Status: Acute Comment: Continue diuresis (3) COPD (chronic obstructive pulmonary disease) Status: Chronic Qualifiers: COPD type: COPD with acute exacerbation Qualified Code(s): J44.1 - Chronic obstructive pulmonary disease with (acute) exacerbation Comment: continue pulm nebs, abx and setroids (4) Chronic a-fib Code(s): I48.2 - CHRONIC ATRIAL FIBRILLATION Status: Chronic Comment: on anticoagulation - Plan cont current plan of care, continue antibiotics, PT/OT, social staff worker * .
--- NOTE | 2018-04-17 14:56 | PRG ---
DATE OF SERVICE: 04/17/2018 SERVICE: Pulmonary Medicine. INTERVAL HISTORY: The patient is doing okay from a respiratory standpoint. He is diuresing comfortably. There has been no interval change to his condition. Otherwise, he has no specific complaints presently. PHYSICAL EXAMINATION: VITAL SIGNS: Afebrile, pulse 82, blood pressure 101/54, respirations 20, and saturation 93% on 2 L nasal cannula. GENERAL: The patient is awake, alert, in no apparent distress. LUNGS: Decreased air entry. Dependent crackles and rhonchi are present. There is a prolonged expiratory phase, but I do not appreciate any wheezing. HEART: Normal rate, regular. ABDOMEN: Soft, nontender, and nondistended. Bowel sounds are positive. MUSCULOSKELETAL: No cyanosis or clubbing. 2+ pitting is present in bilateral lower extremities. NEUROLOGIC: Grossly nonfocal. LABORATORY DATA: BNP is 2500, which is close to and historic high for him. Blood cultures x2 are unremarkable. ASSESSMENT: 1. Chronic hypercapnic respiratory failure. 2. Chronic obstructive pulmonary disease without current exacerbation. 3. Acute on chronic hypoxic respiratory failure. 4. Atrial fibrillation. DISCUSSION AND PLAN: We will continue supportive care including antibiotics, nebulized medications, and steroids. We will diurese the patient to euvolemia. Pulmonary/Critical Care will continue to follow while the patient remains in-house. Job ID: [id number]
[2018-04-17 15:26] LABS: BUN (Urea Nitrogen) 25 mg/dL (8.4-25.7); Calc. Creatinine Clearance 95 mL/min (70-130); Calcium 9.4 mg/dL (7.8-10.44); Estimated GFR-MDRD Greater than 90; Glucose 131 mg/dL (83-110); Magnesium 2.3 mg/dL (1.6-2.6)
[2018-04-17 15:35] LABS: Anion Gap 16 mmol/L (10-20); Carbon Dioxide 38 mmol/L (23-31); Chloride 91 mmol/L (98-107); Sodium 141 mmol/L (136-145)
[2018-04-18] MEDS: Metoprolol Tartrate 25 MG TAB PO SCH ×3 (04:34→20:24)
[2018-04-18 05:27] LABS: BUN (Urea Nitrogen) 20 mg/dL (8.4-25.7); Calc. Creatinine Clearance 99 mL/min (70-130); Calcium 9.3 mg/dL (7.8-10.44); Estimated GFR-MDRD Greater than 90; Glucose 114 mg/dL (83-110); Magnesium 2.2 mg/dL (1.6-2.6)
[2018-04-18 05:35] LABS: Anion Gap 17 mmol/L (10-20); Carbon Dioxide 35 mmol/L (23-31); Chloride 92 mmol/L (98-107); Potassium 3.2 mmol/L (3.5-5.1); Sodium 141 mmol/L (136-145)
[2018-04-18] MEDS: Furosemide 40 MG/4 ML VIAL SLOW IVP SCH ×2 (05:37→15:07)
[2018-04-18] MEDS: Mometasone/Formoterol 120 PUFF INHALER INH SCH ×2 (05:49→19:00)
[2018-04-18] MEDS ORDERED: Metoprolol Tartrate 25 MG TAB PO SCH (06:21)
[2018-04-18 08:18] LABS: Vancomycin, Trough 19.3 ug/mL
[2018-04-18] MEDS: Multivitamin W/ Minerals 1 TAB PO SCH (09:19)
[2018-04-18] MEDS: Potassium Chloride 20 MEQ TAB PO SCH (09:19)
[2018-04-18] MEDS: Lisinopril 2.5 MG TAB PO SCH (09:19)
[2018-04-18] MEDS: Aspirin 81 mg Enteric Coated Tablet PO SCH (09:20)
[2018-04-18] MEDS: predniSONE 20 MG TAB PO SCH (09:20)
[2018-04-18] MEDS: Dofetilide 0.125 MG CAP PO SCH ×2 (09:20→20:17)
[2018-04-18] MEDS: Famotidine 20 MG TAB PO SCH ×2 (09:20→20:17)
[2018-04-18] MEDS: Atorvastatin Calcium 20 MG TAB PO SCH (09:20)
[2018-04-18] MEDS: Phenazopyridine HCl 97.5 MG TABLET PO SCH ×3 (09:21→17:39)
[2018-04-18] MEDS: Apixaban 2.5 MG TAB PO SCH ×2 (09:21→20:16)
[2018-04-18] MEDS: Fluticasone Propionate Nasal Spray 16 gm Bottle NASAL SCH (09:21)
[2018-04-18] MEDS: Polyethylene Glycol 3350 17 GM Packet PO SCH (09:21)
[2018-04-18] MEDS: Vancomycin HCl 1 GM in Premix Bag 1 BAG IVPB SCH ×2 (09:22→20:18)
--- NOTE | 2018-04-18 11:50 | PDOC.PN ---
- Subjective Encounter Start Date: 04/18/18 Encounter Start Time: 11:48 Subjective: feeling much better, stronger, working with PT - Objective Resuscitation Status - Order Detail: 04/14/18 02:40 Resuscitation Status Routine Resuscitation Status: FULL: Full Resuscitation Discussed with: Patient MELANIE Reviewed: Yes Vital Signs & Weight: Vital Signs (12 hours) Temp Pulse Resp BP BP Pulse Ox 04/18/18 11:26 98.2 F 93 22 H 91/47 L 95 04/18/18 09:19 146 H 04/18/18 09:18 103 H 20 89 L 04/18/18 07:58 97 04/18/18 07:18 99.0 F 146 H 23 H 103/68 95 04/18/18 05:49 114 H 20 94 L 04/18/18 05:46 114 H 20 94 L 04/18/18 03:46 99.2 F 104 H 18 119/58 L 94 L 04/18/18 03:28 94 L 04/18/18 02:29 82 20 95 04/18/18 00:49 94 04/18/18 00:32 95 04/17/18 23:49 99.2 F 81 20 95/48 L 96 Weight Weight 167 lb 5.294 oz I&O: 04/17/18 04/18/18 04/19/18 06:59 06:59 06:59 Intake Total 1660 1964 Output Total 4275 5452 Balance -1086 -1537 Result Diagrams: 04/13/18 23:19 04/18/18 04:39 Phys Exam - Physical Examination HEENT: PERRLA, moist MMs, sclera anicteric, TM's clear, oral pharynx no lesions , 2+ tonsils Respiratory: wheezing present Cardiovascular: RRR, no significant murmur Gastrointestinal: soft, non-tender, no distention REDUCED LE edema, scoliosis Neurological: non-focal, normal sensation, moves all 4 limbs Psychiatric: normal affect, A&O x 3 Dx/Plan (1) Acute and chronic respiratory failure with hypoxia Code(s): J96.21 - ACUTE AND CHRONIC RESPIRATORY FAILURE WITH HYPOXIA Status: Acute Comment: Improved, continue O2 support via NC, pulmonary supportive measures. Aggressive diuresis (2) Acute on chronic combined systolic and diastolic CHF, NYHA class 3 Code(s): I50.43 - ACUTE ON CHRONIC COMBINED SYSTOLIC AND DIASTOLIC HRT FAIL Status: Acute Comment: Continue diuresis (3) COPD (chronic obstructive pulmonary disease) Status: Chronic Qualifiers: COPD type: COPD with acute exacerbation Qualified Code(s): J44.1 - Chronic obstructive pulmonary disease with (acute) exacerbation Comment: continue pulm nebs, abx and setroids (4) Chronic a-fib Code(s): I48.2 - CHRONIC ATRIAL FIBRILLATION Status: Chronic Comment: on anticoagulation - Plan cont current plan of care, continue antibiotics, PT/OT, [employer] social worker, respiratory therapy, DVT proph w/lovenox DC Bernabe and ensure that patient can urinate well. SNF Vs. Home in the morning * .
--- NOTE | 2018-04-18 17:20 | PRG ---
DATE OF SERVICE: 04/18/2018 SUBJECTIVE: His events have been reviewed. He is in no distress. OBJECTIVE: VITAL SIGNS: He is afebrile. Heart rate is 99, respiratory rate is 20, oximetry 94% on 2 L, blood pressure 91/47. LUNGS: Clear. HEART: Regular rhythm. ABDOMEN: Soft. LABORATORY DATA: Sodium 141, potassium 3.2, chloride 92, bicarbonate 35, BUN 20, creatinine 0.69. IMPRESSION: 1. Congestive heart failure. 2. Asthma. 3. 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 4. Sleep apnea. 5. Atrial fibrillation. He has history of having very acute decompensation if he has breakthrough rapid atrial fibrillation. We will continue to monitor for this or move him to intermediate care unit. Job ID: [id number]
[2018-04-18] MEDS: Ivabradine 5 MG TAB PO SCH (20:17)
[2018-04-19 05:12] LABS: BUN (Urea Nitrogen) 19 mg/dL (8.4-25.7); Calc. Creatinine Clearance 104 mL/min (70-130); Calcium 8.8 mg/dL (7.8-10.44); Estimated GFR-MDRD Greater than 90; Glucose 128 mg/dL (83-110); Magnesium 2.3 mg/dL (1.6-2.6)
[2018-04-19 05:21] LABS: Anion Gap 16 mmol/L (10-20); Carbon Dioxide 36 mmol/L (23-31); Chloride 90 mmol/L (98-107); Potassium 3.3 mmol/L (3.5-5.1); Sodium 139 mmol/L (136-145)
[2018-04-19] MEDS: Furosemide 40 MG/4 ML VIAL SLOW IVP SCH ×2 (05:45→14:53)
[2018-04-19] MEDS: Mometasone/Formoterol 120 PUFF INHALER INH SCH ×2 (07:58→18:51)
[2018-04-19] MEDS ORDERED: Digoxin 0.5 MG/2 ML AMP SLOW IVP SCH ×2 (09:15→12:00)
[2018-04-19] MEDS: Vancomycin HCl 1 GM in Premix Bag 1 BAG IVPB SCH ×2 (09:46→21:06)
[2018-04-19] MEDS: Atorvastatin Calcium 20 MG TAB PO SCH (09:47)
[2018-04-19] MEDS: Potassium Chloride 20 MEQ TAB PO SCH (09:48)
[2018-04-19] MEDS: Ivabradine 5 MG TAB PO SCH ×2 (09:49→20:23)
[2018-04-19] MEDS: predniSONE 20 MG TAB PO SCH (09:49)
[2018-04-19] MEDS: Multivitamin W/ Minerals 1 TAB PO SCH (09:49)
[2018-04-19] MEDS: Famotidine 20 MG TAB PO SCH ×2 (09:49→20:23)
[2018-04-19] MEDS: Aspirin 81 mg Enteric Coated Tablet PO SCH (09:49)
[2018-04-19] MEDS: Lisinopril 2.5 MG TAB PO SCH (09:49)
[2018-04-19] MEDS: Apixaban 2.5 MG TAB PO SCH ×2 (09:50→20:24)
[2018-04-19] MEDS: Dofetilide 0.125 MG CAP PO SCH ×2 (09:50→20:23)
[2018-04-19] MEDS: Phenazopyridine HCl 97.5 MG TABLET PO SCH ×3 (09:51→17:31)
[2018-04-19] MEDS: Fluticasone Propionate Nasal Spray 16 gm Bottle NASAL SCH (09:51)
[2018-04-19] MEDS: Polyethylene Glycol 3350 17 GM Packet PO SCH (09:52)
[2018-04-19] MEDS: Metoprolol Tartrate 25 MG TAB PO SCH (10:01)
[2018-04-19] MEDS: Acetaminophen 325 MG TAB PO PRN (10:04)
--- NOTE | 2018-04-19 11:33 | PDOC.PN ---
- Subjective Encounter Start Date: 04/19/18 Encounter Start Time: 12:00 Subjective: Patient reports he is near baseline on SOB. States he is worried about -: it getting worse again. In andout of hospital for past month. - Objective Resuscitation Status - Order Detail: 04/14/18 02:40 Resuscitation Status Routine Resuscitation Status: FULL: Full Resuscitation Discussed with: Patient MELANIE Reviewed: Yes Vital Signs & Weight: Vital Signs (12 hours) Temp Pulse Resp BP Pulse Ox 04/19/18 10:50 98.5 F 101 H 18 91/61 93 L 04/19/18 10:47 107 H 20 94 L 04/19/18 09:53 132 H 04/19/18 09:49 132 H 04/19/18 08:00 96 04/19/18 07:55 94 L 04/19/18 07:54 88 20 94 L 04/19/18 07:19 98.4 F 84 16 119/74 92 L 04/19/18 04:00 98.2 F 106 H 18 111/77 93 L 04/19/18 00:00 98.8 F 96 20 94/64 92 L Weight Weight 167 lb 5.294 oz I&O: 04/18/18 04/19/18 04/20/18 06:59 06:59 06:59 Intake Total 1964 1778 Output Total 5452 1900 Balance -3488 -122 Result Diagrams: 04/13/18 23:19 04/19/18 04:29 Phys Exam - Physical Examination Constitutional: NAD HEENT: moist MMs Respiratory: no wheezing, no rales, no rhonchi Cardiovascular: RRR Gastrointestinal: soft, positive bowel sounds Musculoskeletal: pulses present, edema present Neurological: non-focal, moves all 4 limbs Psychiatric: normal affect, A&O x 3 Dx/Plan (1) Acute and chronic respiratory failure with hypoxia Code(s): J96.21 - ACUTE AND CHRONIC RESPIRATORY FAILURE WITH HYPOXIA Status: Acute Comment: Improved, continue O2 support via NC, pulmonary supportive measures. Aggressive diuresis (2) Acute on chronic combined systolic and diastolic CHF, NYHA class 3 Code(s): I50.43 - ACUTE ON CHRONIC COMBINED SYSTOLIC AND DIASTOLIC HRT FAIL Status: Acute Comment: Continue diuresis (3) COPD (chronic obstructive pulmonary disease) Status: Chronic Qualifiers: COPD type: COPD with acute exacerbation Qualified Code(s): J44.1 - Chronic obstructive pulmonary disease with (acute) exacerbation Comment: continue pulm nebs and steroids (4) Chronic a-fib Code(s): I48.2 - CHRONIC ATRIAL FIBRILLATION Status: Chronic Comment: on anticoagulation - Plan cont current plan of care, PT/OT, respiratory therapy Likely can d/c to SNF in next couple days if ok with Pulm. * . - Discharge Day Encounter end time: 12:15
[2018-04-19] MEDS ORDERED: Potassium Chloride 20 MEQ TAB PO SCH ×2 (12:30→15:00)
[2018-04-19] MEDS ORDERED: Digoxin 0.25 MG TAB PO SCH (14:00)
--- NOTE | 2018-04-19 15:13 | PRG ---
DATE OF SERVICE: 04/19/2018 SERVICE: Pulmonary Medicine. INTERVAL HISTORY: The patient is doing fine from respiratory standpoint. He is breathing comfortably. He has BiPAP in over 24 hours. He denies any fevers, chills, nausea, or vomiting. He is not coughing or bringing up any sputum. PHYSICAL EXAMINATION: VITAL SIGNS: Afebrile, pulse 101, blood pressure 91/61, respirations 18, saturation 93% on 2 L nasal cannula. GENERAL: The patient is awake and alert, in no apparent distress. LUNGS: Decent air entry. I do not appreciate any crackling today. There is decreased air entry on the right and good air entry on the left. No prolonged expiratory phase or wheezing is appreciated. HEART: Tachycardic. Irregular. ABDOMEN: Soft, nontender, and nondistended. Bowel sounds are positive. MUSCULOSKELETAL: No cyanosis or clubbing. There is 2+ edema in the bilateral lower extremities, which are dramatically improved. : Bernabe catheter in place. NEUROLOGIC: Grossly nonfocal. LABORATORY DATA: Potassium 3.3, bicarb 36. Basic metabolic profile is otherwise unremarkable. Creatinine 0.66 and downtrending comfortably. Magnesium 2.3. Blood cultures x2 are unremarkable. ASSESSMENT: 1. Chronic hypercapnic respiratory failure. 2. Restrictive lung disease secondary to scoliosis. 3. Chronic obstructive pulmonary disease, possible without current exacerbation. 4. Acute on chronic hypoxic respiratory failure. 5. Atrial fibrillation with rapid ventricular response. DISCUSSION AND PLAN: We will remove the Bernabe catheter. Potassium will be replaced. Otherwise, supportive measures will be continued. From my perspective, he is stable for transition to the telemetry unit. Pulmonary will continue to follow. Job ID: [id number]
[2018-04-19] MEDS: Carvedilol 3.125 MG TAB PO SCH (17:31)
[2018-04-19 20:51] LABS: Vancomycin, Trough 18.4 ug/mL
[2018-04-20] MEDS: Furosemide 40 MG/4 ML VIAL SLOW IVP SCH ×2 (06:14→14:21)
[2018-04-20 06:51] LABS: Anion Gap 13 mmol/L (10-20); BUN (Urea Nitrogen) 18 mg/dL (8.4-25.7); Calc. Creatinine Clearance 98 mL/min (70-130); Calcium 8.7 mg/dL (7.8-10.44); Carbon Dioxide 37 mmol/L (23-31); Chloride 94 mmol/L (98-107); Estimated GFR-MDRD Greater than 90; Glucose 83 mg/dL (83-110); Potassium 4.5 mmol/L (3.5-5.1); Sodium 139 mmol/L (136-145)
[2018-04-20] MEDS: Mometasone/Formoterol 120 PUFF INHALER INH SCH ×2 (07:35→18:27)
--- NOTE | 2018-04-20 09:07 | PDOC.PN ---
- Subjective Encounter Start Date: 04/20/18 Encounter Start Time: 09:00 Subjective: Patient a little more SOB this AM, but still about baseline. - Objective Resuscitation Status - Order Detail: 04/14/18 02:40 Resuscitation Status Routine Resuscitation Status: FULL: Full Resuscitation Discussed with: Bria NAVARRO Reviewed: Yes Vital Signs & Weight: Vital Signs (12 hours) Temp Pulse Resp BP BP Pulse Ox 04/20/18 07:34 86 18 94 L 04/20/18 07:21 97.1 F L 59 L 20 102/56 L 95 04/20/18 04:12 97.7 F 80 20 99/50 L 94 L 04/20/18 02:24 77 20 92 L 04/20/18 00:04 99.0 F 75 20 90/40 L 94 L 04/19/18 22:19 87 18 92 L Weight Weight 167 lb 5.294 oz I&O: 04/19/18 04/20/18 04/21/18 06:59 06:59 06:59 Intake Total 1778 1728 Output Total 1900 1999 Balance -122 -272 Result Diagrams: 04/13/18 23:19 04/20/18 06:04 Additional Labs: Accuchecks 04/19/18 22:38 POC Glucose 139 H Phys Exam - Physical Examination Constitutional: NAD HEENT: moist MMs occ wheeze and course breath sound, no increased WOB, good air movement Cardiovascular: RRR Gastrointestinal: soft, positive bowel sounds Neurological: non-focal, moves all 4 limbs Psychiatric: normal affect, A&O x 3 Dx/Plan (1) Acute and chronic respiratory failure with hypoxia Code(s): J96.21 - ACUTE AND CHRONIC RESPIRATORY FAILURE WITH HYPOXIA Status: Acute Comment: Improved, continue O2 support via NC, pulmonary supportive measures. Aggressive diuresis (2) Acute on chronic combined systolic and diastolic CHF, NYHA class 3 Code(s): I50.43 - ACUTE ON CHRONIC COMBINED SYSTOLIC AND DIASTOLIC HRT FAIL Status: Acute Comment: Continue diuresis (3) COPD (chronic obstructive pulmonary disease) Status: Chronic Qualifiers: COPD type: COPD with acute exacerbation Qualified Code(s): J44.1 - Chronic obstructive pulmonary disease with (acute) exacerbation Comment: continue pulm nebs and steroids (4) Chronic a-fib Code(s): I48.2 - CHRONIC ATRIAL FIBRILLATION Status: Chronic Comment: on anticoagulation - Plan cont current plan of care, PT/OT, respiratory therapy Can d/c to SNF once arranged and ok with pulmonology * . - Discharge Encounter end time: 09:15
[2018-04-20] MEDS: Phenazopyridine HCl 97.5 MG TABLET PO SCH ×3 (09:58→18:42)
[2018-04-20] MEDS: Apixaban 2.5 MG TAB PO SCH ×2 (09:58→20:59)
[2018-04-20] MEDS: Dofetilide 0.125 MG CAP PO SCH ×2 (09:59→21:00)
[2018-04-20] MEDS: Polyethylene Glycol 3350 17 GM Packet PO SCH (09:59)
[2018-04-20] MEDS: Ivabradine 5 MG TAB PO SCH (09:59)
[2018-04-20] MEDS: Aspirin 81 mg Enteric Coated Tablet PO SCH (10:00)
[2018-04-20] MEDS: predniSONE 20 MG TAB PO SCH (10:01)
[2018-04-20] MEDS: Atorvastatin Calcium 20 MG TAB PO SCH (10:01)
[2018-04-20] MEDS: Digoxin 0.25 MG TAB PO SCH (10:01)
[2018-04-20] MEDS: Multivitamin W/ Minerals 1 TAB PO SCH (10:02)
[2018-04-20] MEDS: Carvedilol 3.125 MG TAB PO SCH ×2 (10:02→18:42)
[2018-04-20] MEDS: Potassium Chloride 20 MEQ TAB PO SCH (10:02)
[2018-04-20] MEDS: Fluticasone Propionate Nasal Spray 16 gm Bottle NASAL SCH (10:05)
[2018-04-20] MEDS: Famotidine 20 MG TAB PO SCH ×2 (10:05→20:59)
[2018-04-20] MEDS: Vancomycin HCl 1 GM in Premix Bag 1 BAG IVPB SCH ×2 (10:06→21:00)
[2018-04-20] MEDS: Lisinopril 2.5 MG TAB PO SCH (10:07)
[2018-04-20] MEDS ORDERED: Carvedilol 3.125 MG TAB PO SCH (11:45)
--- NOTE | 2018-04-20 13:35 | PRG ---
DATE OF SERVICE: 04/20/2018 SERVICE: Pulmonary Medicine. INTERVAL HISTORY: The patient is breathing fine. He denied any current chest pain, fevers, or chills. He is fighting low blood pressure. He is asymptomatic to it. That being said, he indicates that it happened ever since they put the pacemaker in. There have been no fevers, chills, nausea, or vomiting. There is no shortness of breath or chest discomfort currently. Lower extremity swelling seems to be improving. PHYSICAL EXAMINATION: VITAL SIGNS: Afebrile, pulse 73, blood pressure 89/51, respirations 20, saturation 97% on 3 L nasal cannula. GENERAL: The patient is awake and alert, in no apparent distress. LUNGS: Excellent air entry. No dependent crackles are appreciated today. HEART: Normal rate, regular. ABDOMEN: Soft, nontender, and nondistended. Bowel sounds are positive. MUSCULOSKELETAL: No cyanosis or clubbing. There is still 1 to 2+ pitting in the bilateral lower extremities. NEUROLOGIC: Grossly nonfocal. LABORATORY DATA: Bicarb 37. Basic metabolic profile is otherwise unremarkable. Blood cultures x2 remain negative. ASSESSMENT: 1. Chronic hypercapnic respiratory failure. 2. Restrictive lung disease secondary to scoliosis. 3. Chronic obstructive pulmonary disease, possible without current exacerbation. 4. Acute on chronic hypoxic respiratory failure. 5. Atrial fibrillation with rapid ventricular response, resolved. DISCUSSION AND PLAN: The patient is doing fine from respiratory standpoint. He remains stable for transition to the telemetry unit. We will need to back off some of his blood pressure medications if possible. Pulmonary will continue to follow for the time being. Job ID: [id number]
--- NOTE | 2018-04-20 15:52 | CON ---
DATE OF CONSULTATION: 04/20/2018 REASON FOR CONSULTATION: Atrial arrhythmias. HISTORY OF PRESENT ILLNESS: Mr. Rosa is a pleasant 77-year-old gentleman, known to us for history of paroxysmal atrial fibrillation, multiple left atrial circuits and ectopic atrial beats, as well as nonischemic cardiomyopathy, nonsustained ventricular tachycardia, and occlusion of a dual-chamber ICD that was placed on 02/22/2018. He has an extensive past medical history including as mentioned above as well as systolic congestive heart failure and COPD, in addition to remote history of polio and severe kyphoscoliosis leading to restrictive pulmonary issues. Mr. Rosa presented to the emergency room on 04/14 via ambulance. He had been having some mild shortness of breath that started the day prior and had become severe as it progressed. He denied any cough, sputum, fevers, or chills, but did have some increasing edema of the lower extremities. He was given nebulizer treatments and Lasix, and was admitted for further evaluation and management of acute hypoxic respiratory failure as he was requiring BiPAP secondary to heart failure exacerbation. His most recent echocardiogram reveals a severely reduced ejection fraction of 30% to 35%. He also presented with a COPD exacerbation. It has always been a delicate balancing act with Mr. Rosa between his cardiac arrhythmias, heart failure, and his advanced COPD. Since he was admitted, his congestive heart failure has improved some. He has been receiving steroids and nebulizer treatments, but he began to have paroxysmal runs of his atrial arrhythmias. He is known to have multifocal atrial tachycardias as well as atrial fibrillation and frequent nonsustained ventricular tachycardia. Earlier this year, he was started on Tikosyn, which he is tolerating fairly well and is working quite well at suppressing his arrhythmias. His dual chamber device was interrogated and interrogation will be placed on the chart shortly for review. Currently, Mr. Rosa is walking through the halls and feeling fairly well. His shortness of breath has largely resolved. He continues to be fairly asymptomatic and unaware of his arrhythmias. Infectious Disease has also been consulted and is following Mr. Rosa for Staphylococcus aureus bacteremia that was initially detected in February of this year. There has been some concern for colonization of his AICD. The plan with them is to continue 42 days of suppressive antibiotic therapy and continue to monitor for recurrent bacteremia. REVIEW OF SYSTEMS: Positive for shortness of breath, weakness, fatigue, chronic mobility restrictions. Denies increased work of breathing. Denies cough. Denies heart racing, palpitations, chest pain or pressure, syncope, or near syncopal episodes. Denies any unilateral weakness, speech changes, vision changes, or stroke-like symptoms. Otherwise, a 12-point review of systems is conducted and is negative except as listed above and as per the HPI. PAST MEDICAL HISTORY: 1. Paroxysmal atrial arrhythmias, multifocal atrial tachycardias. 2. History of typical atrial flutter, status post CTI ablation by Dr. Abrams in February 2016. 3. Multifocal atrial tachycardia and atypical flutter, paroxysmal, previously with rapid rates, now suppressed with Tikosyn. 4. Advanced COPD. 5. Extreme kyphoscoliosis. 6. Anticoagulation on Eliquis. 7. Hypertension. 8. Nonischemic cardiomyopathy. 9. Dual-chamber Medtronic ICD in situ, placed on 02/22/2018. 10. MRSA bacteremia. 11. History of polio. 12. Chronic systolic congestive heart failure. ALLERGIES: IBUPROFEN. HOME MEDICATIONS: Include: 1. ProAir as needed. 2. Vancomycin q.12 hours 1.25 g. 3. Multivitamin daily. 4. Pepcid 20 mg b.i.d. 5. Aspirin 81 mg daily. 6. Prednisone 20 mg daily. 7. Lisinopril 2.5 mg p.o. daily. 8. Breo Ellipta daily. 9. Tikosyn 250 mcg b.i.d. 10. Vitamin D3 daily. 11. Lipitor 20 mg p.o. daily. 12. Eliquis 2.5 mg p.o. b.i.d. 13. Potassium chloride 20 mEq p.o. daily. 14. MiraLAX 17 g p.o. daily. 15. Omeprazole 20 mg p.o. daily. 16. Corlanor 5 mg p.o. b.i.d. 17. DuoNeb q.4 hours. 18. Lasix 40 mg p.o. b.i.d. 19. Flonase daily. 20. Digoxin 0.25 mg daily. 21. Coreg 3.125 mg p.o. b.i.d. FAMILY HISTORY: Noncontributory. SOCIAL HISTORY: Former smoker, quit many years ago. Denies alcohol or illicit drug use. PHYSICAL EXAMINATION: VITAL SIGNS: Temperature 98.8, pulse 73, blood pressure 94/48, respirations 20, and oxygen saturation 97% on 3 L via nasal cannula. GENERAL: The patient is alert and oriented, ambulating in the hallway. He is in no apparent distress. He is breathing easy. His speech is clear. His affect is appropriate. NECK: Supple without jugular venous distention, as best can be told; however, neck habitus makes it difficult to assess JVD. It appears supple and symmetric. CARDIOVASCULAR: Heart rate is currently irregularly irregular without significant murmur, rub, or gallop. PMI is minimally palpable. Device is seated at the left infraclavicular fossa without swelling, bruising, erosion, or drainage. PULMONARY: Bibasilar rales, minimal. Respirations, even and nonlabored. Significant kyphoscoliosis causing restrictive breathing patterns. GI: Abdomen is soft and nontender without palpable masses. EXTREMITIES: Warm and dry to touch without clubbing, cyanosis, or edema. NEUROLOGIC: Grossly intact. Cranial nerves 2 through 12 and nonfocal. LABORATORY DATA: Database laboratory: Hematology; hemoglobin from 04/13 was 11.4, platelet count was 160. Chemistry from 04/20; potassium 4.5, creatinine 0.7, sodium 139. DEVICE CHECK: This patient has a Medtronic Evera XT DR dual-chamber ICD implanted on 02/22/2018. Lead impedances are stable. There is adequate sensing. Capture thresholds are stable. Device check reveals good control of his atrial fibrillation with 30-minute episode in the past 24 hours. Overall, burden of atrial fibrillation is less than 0.1%. There have been no treated ventricular arrhythmias, but there is frequent nonsustained ventricular tachycardia that spontaneously terminates. OptiVol fluid index levels are below threshold and well controlled at this time. DIAGNOSTIC STUDIES: Telemetry and EKG were reviewed. Once again, we see that Mr. Rosa has multifocal atrial tachycardia that is brief and paroxysmal. He will also have paroxysmal runs of atrial fibrillation and atrial tachycardia that appear atypical by morphology. Also, frequent nonsustained ventricular tachycardia. Currently, he is in sinus rhythm with demand pacing. IMPRESSION: 1. Paroxysmal atrial fibrillation with reasonable suppression with Tikosyn, single 30-minute episode with rapid ventricular response, following a breathing treatment by device interrogation. 2. Frequent nonsustained ventricular tachycardia, which is a chronic issue. 3. History of Staphylococcus aureus bacteremia, currently followed by Infectious Disease and on suppressive antibiotic therapy. 4. Occlusion of the dual-chamber ICD implanted on 02/22/2018 with normal operation as detailed above. 5. Acute on chronic systolic congestive heart failure with nonischemic cardiomyopathy, severely reduced LV ejection fraction of 30% to 35% by echo in February 2018. 6. Extensive pulmonary disease with kyphoscoliosis and advanced chronic obstructive pulmonary disease with frequent exacerbations. PLAN: At this time, we would recommend continuing medical management for his arrhythmia issues. There is some concern for colonization of his ICD and he is undergoing suppressive therapy with this. His multiple left atrial circuits and atrial arrhythmias are quite well suppressed with his Tikosyn. We will continue Tikosyn, but have stopped Corlanor. Corlanor is known to worsen atrial fibrillation burden. We have increased beta-maureen to maximize his therapy, but would prefer metoprolol long-term and he may tolerate this better with his frequent hypotension issues as well over Coreg. Also, agree with continued antibiotic therapy and to monitor for recurrent bacteremia. Thank you for allowing us to participate in the care of this patient. Job ID: [id number]
[2018-04-21 05:39] LABS: Hemoglobin 12.3 g/dL (14.0-18.0); Platelet Count 152 thou/uL (130-400)
[2018-04-21 06:00] LABS: BUN (Urea Nitrogen) 19 mg/dL (8.4-25.7); Calc. Creatinine Clearance 118 mL/min (70-130); Calcium 8.7 mg/dL (7.8-10.44); Estimated GFR-MDRD Greater than 90; Glucose 92 mg/dL (83-110)
[2018-04-21 06:09] LABS: Anion Gap 9 mmol/L (10-20); Chloride 94 mmol/L (98-107); Potassium 3.9 mmol/L (3.5-5.1); Sodium 140 mmol/L (136-145)
[2018-04-21 06:13] LABS: Carbon Dioxide 41 mmol/L (23-31)
[2018-04-21] MEDS: Furosemide 40 MG/4 ML VIAL SLOW IVP SCH (06:27)
[2018-04-21 07:31] VITALS: TEMP 98.6
[2018-04-21] MEDS: Mometasone/Formoterol 120 PUFF INHALER INH SCH (08:15)
[2018-04-21 08:47] LABS: Vancomycin, Trough 18.4 ug/mL
[2018-04-21] MEDS: Digoxin 0.25 MG TAB PO SCH (09:20)
[2018-04-21] MEDS: Phenazopyridine HCl 97.5 MG TABLET PO SCH (09:20)
[2018-04-21] MEDS: Polyethylene Glycol 3350 17 GM Packet PO SCH (09:20)
[2018-04-21] MEDS: Dofetilide 0.125 MG CAP PO SCH (09:20)
[2018-04-21] MEDS: Atorvastatin Calcium 20 MG TAB PO SCH (09:20)
[2018-04-21] MEDS: Aspirin 81 mg Enteric Coated Tablet PO SCH (09:20)
[2018-04-21] MEDS: Carvedilol 3.125 MG TAB PO SCH (09:21)
[2018-04-21] MEDS: predniSONE 20 MG TAB PO SCH (09:21)
[2018-04-21] MEDS: Multivitamin W/ Minerals 1 TAB PO SCH (09:21)
[2018-04-21] MEDS: Potassium Chloride 20 MEQ TAB PO SCH (09:21)
[2018-04-21] MEDS: Lisinopril 2.5 MG TAB PO SCH (09:22)
[2018-04-21] MEDS: Fluticasone Propionate Nasal Spray 16 gm Bottle NASAL SCH (09:22)
[2018-04-21] MEDS: Famotidine 20 MG TAB PO SCH (09:22)
[2018-04-21] MEDS: Vancomycin HCl 1 GM in Premix Bag 1 BAG IVPB SCH (09:23)
[2018-04-21] MEDS: Apixaban 2.5 MG TAB PO SCH (09:23)
--- NOTE | 2018-04-21 09:43 | PDOC.PN ---
- Subjective Encounter Start Date: 04/21/18 Encounter Start Time: 09:30 Subjective: Patient reports baseline SOB, controlled with NC O2. No complaints. - Objective Resuscitation Status - Order Detail: 04/14/18 02:40 Resuscitation Status Routine Resuscitation Status: FULL: Full Resuscitation Discussed with: Patient MELANIE Reviewed: Yes Vital Signs & Weight: Vital Signs (12 hours) Temp Pulse Resp BP Pulse Ox 04/21/18 09:22 80 04/21/18 09:20 80 04/21/18 08:15 97 04/21/18 08:12 80 21 H 97 04/21/18 07:30 98.6 F 84 15 106/45 L 92 L 04/21/18 04:18 98.1 F 72 25 H 115/45 L 97 04/21/18 02:16 75 20 94 L 04/21/18 00:00 97.7 F 76 24 H 109/46 L 93 L 04/20/18 22:18 77 20 95 Weight Weight 152 lb 12.485 oz I&O: 04/20/18 04/21/18 04/22/18 06:59 06:59 06:59 Intake Total 172 1330 Output Total 19990 Balance -272 1720 Result Diagrams: 04/21/18 05:20 04/21/18 05:20 Phys Exam - Physical Examination Constitutional: NAD HEENT: moist MMs Respiratory: no wheezing, no rales, no rhonchi scoliosis and rib cage deformity Cardiovascular: RRR Gastrointestinal: soft, positive bowel sounds Neurological: non-focal, moves all 4 limbs Psychiatric: normal affect, A&O x 3 Dx/Plan (1) Acute and chronic respiratory failure with hypoxia Code(s): J96.21 - ACUTE AND CHRONIC RESPIRATORY FAILURE WITH HYPOXIA Status: Acute Comment: Improved, continue O2 support via NC, pulmonary supportive measures. Aggressive diuresis (2) Acute on chronic combined systolic and diastolic CHF, NYHA class 3 Code(s): I50.43 - ACUTE ON CHRONIC COMBINED SYSTOLIC AND DIASTOLIC HRT FAIL Status: Acute Comment: Continue diuresis (3) COPD (chronic obstructive pulmonary disease) Status: Chronic Qualifiers: COPD type: COPD with acute exacerbation Qualified Code(s): J44.1 - Chronic obstructive pulmonary disease with (acute) exacerbation Comment: continue pulm nebs and steroids (4) Chronic a-fib Code(s): I48.2 - CHRONIC ATRIAL FIBRILLATION Status: Chronic Comment: on anticoagulation - Plan Patient stable for transfer to SNF today * . - Discharge Day Encounter end time: 09:50
[2018-04-21 11:27] VITALS: BP 119/68
--- NOTE | 2018-04-21 13:01 | PRG ---
DATE OF SERVICE: SERVICE: Pulmonary Medicine. INTERVAL HISTORY: The patient's breathing is back to baseline. Denies any current chest pain, fevers, chills, nausea, or vomiting. Otherwise, there has been interval change to his condition. PHYSICAL EXAMINATION: VITAL SIGNS: Afebrile, pulse 85, blood pressure 119/68, respirations 20, saturation 95% on 2 L nasal cannula. GENERAL: The patient is awake and alert, in no apparent distress. LUNGS: Decent air entry. There is no prolonged expiratory phase. There is no wheezing, rhonchi, or crackles appreciated today. HEART: Normal rate and regular. ABDOMEN: Soft, nontender, and nondistended. Bowel sounds are positive. MUSCULOSKELETAL: No cyanosis or clubbing. There is trace pitting in the right lower extremity, 1+ pitting in the left lower extremity, which is significantly improved. LABORATORY DATA: Hemoglobin 12.3. Bicarb 41. Basic metabolic profile is otherwise unremarkable. Blood cultures x2 are unremarkable. ASSESSMENT: 1. Chronic hypercapnic respiratory failure. 2. Restrictive lung disease secondary to scoliosis. 3. Chronic obstructive pulmonary disease, possible without current exacerbation. 4. Acute on chronic hypoxic respiratory failure, resolved to baseline. 5. Atrial fibrillation with rapid ventricular response, resolved. DISCUSSION AND PLAN: The patient is doing fine. He is a candidate for transition out of the hospital. He will need intermittent Lasix in the outpatient setting. He will also need to continue his ventilator in the senior care facility while he regains some of his lost strength. If he remains in-house, I will continue to follow. Job ID: [id number]
--- NOTE | 2018-04-21 14:14 | PDOC.CTH ---
Cardiology Progress Note - Subjective EP Progress Note: 04/21/18 Seen and evaluated as follow up for atrial arrhythmias. Continues to have shortness of breath. No cardiac concerns or complaints today. No bleeding issues. - Objective Vital Signs Temp Pulse Resp BP BP Pulse Ox 04/21/18 11:27 98.6 F 85 20 119/68 95 04/21/18 11:22 75 20 99 04/21/18 09:22 80 04/21/18 09:20 80 04/21/18 08:15 97 04/21/18 08:12 80 21 H 97 04/21/18 07:30 98.6 F 84 15 106/45 L 92 L 04/21/18 04:18 98.1 F 72 25 H 115/45 L 97 04/21/18 02:16 75 20 94 L Weight 152 lb 12.485 oz 04/20/18 04/21/18 04/22/18 06:59 06:59 06:59 Intake Total 1728 1330 Output Total 1999 3050 Balance -272 -1720 - Physical Examination General/Neuro: alert & oriented x3, NAD Neck: carotid US brisk, no JVD present Lungs: CTA, unlabored respirations Heart: other: Abdomen: NT/ND, soft - Telemetry Telemetry Rhythm: SR with frequent ectopy - Labs Result Diagrams: 04/21/18 05:20 04/21/18 05:20 Troponin/CKMB CK-MB (CK-2) 7.0 ng/mL (0-6.6) H* 04/14/18 02:24 Troponin I 0.048 ng/mL (< 0.028) H 04/14/18 05:23 - Assessment/Plan 1. Paroxysmal atrial arrhythmias -well suppressed with tikosyn -frequent atrial ectopy seen 2. NSVT -frequent, brief -continue to optimize beta maureen therapy as tolerated 3. Bacteremia 4. Dual chamber ICD - normal operation - reveals low AF burden and frequent NSVT 5. Pulmonary disease -largely asthma with restrictive process from hx polio and severe kyphoscoliosis 6. CHADS2-VASC >2 - on reduced dose eliquis for prior hemoptysis and bruising. I had increased his Eliquis to 5mg BID during his last stay but he is back on 2.5mg BID. Will increase to 5mg BID once again. OK for DC home by EP. Continue Tikosyn and Eliquis. Optimize coreg as tolerated. Stop Corlanor which can increase AF burden
--- NOTE | 2018-04-22 03:37 | DIS ---
DATE OF ADMISSION: 04/14/2018 DATE OF DISCHARGE: 04/21/2018 PRIMARY CARE PHYSICIAN: Dr. Chand. REASON FOR ADMISSION: Exacerbation of congestive heart failure. DIAGNOSES AT DISCHARGE: 1. Acute on chronic respiratory failure with hypoxia. 2. Acute on chronic combined systolic and diastolic congestive heart failure. 3. Chronic obstructive pulmonary disease. 4. Chronic atrial fibrillation. 5. Restrictive lung disease secondary to scoliosis from polio. 6. Frequent nonsustained ventricular tachycardia. 7. History of Staphylococcus aureus bacteremia, followed by Infectious Disease. CONSULTATIONS: 1. Pulmonology, Dr. Rice and Dr. Mcqueen. 2. Infectious Disease, Dr. High. 3. Electrophysiology, Pippa Berman, nurse practitioner. PROCEDURES: None. SUMMARY OF HOSPITAL COURSE: This is a 77-year-old man with extensive history of congestive heart failure and COPD along with pulmonary insufficiency from severe kyphoscoliosis due to polio. He has had some worsening of his status and has been admitted multiple times over the last couple of months. The patient became short of breath at home and so was sent to the hospital where he was found to be in congestive heart failure. He also required BiPAP for support of his breathing. The patient was treated with diuresis and adjustment of his medications, and slowly was able to be weaned off the BiPAP and back onto his home [address] High was consulted during his hospitalization due to his recent Staph aureus bacteremia, on suppressive therapy. He also has atrial fibrillation that was uncontrolled improved with treatment. Electrophysiology was consulted as well and made recommendations on his medications. On the day of discharge, the patient was back to baseline. He and his family determined that they were not able to take care of him well at home, he was not getting the support he needed in order to be able to stay at home and bounces back to the hospital, so they determined to go to prison care at the [facility]. He has been accepted for a bed at the [facility] and is awaiting his daughter finishing the paper work at which point he will be able to be transferred over there. DISCHARGE MANAGEMENT: Discharged to prison facility at the [facility]. ACTIVITY: As tolerated. DIET: Fluid restricted, healthy heart, low sodium diet. THERAPY: Occupational and physical therapy. EQUIPMENT AND SUPPLIES: Oxygen and nebulizer treatments as needed. FOLLOWUP: With cardiac rehab, with Dr. High, Dr. Chand, and Dr. Harry as needed. MEDICATIONS: 1. We will increase his furosemide to 40 mg twice a day. 2. Albuterol inhaler as needed. 3. Vancomycin 1.25 g every 12 hours. 4. Famotidine 20 mg twice a day. 5. Aspirin 81 mg daily. 6. Prednisone 20 mg daily. 7. Lisinopril 2.5 mg daily. 8. Breo Ellipta inhaled daily. 9. Tikosyn 250 mcg twice a day. 10. Vitamin D3 5000 units daily. 11. Atorvastatin 20 mg daily. 12. Eliquis 2.5 mg twice a day. 13. Potassium chloride 20 mEq daily. 14. MiraLax 17 g daily. 15. Corlanor 5 mg twice a day. 16. DuoNeb as needed. 17. Flonase daily. 18. Digoxin 0.25 mg in the morning. 19. Carvedilol 3.125 mg twice a day. Job ID: [id number]
--- NOTE | 2018-04-22 17:19 | EKG ---
Test Reason : Blood Pressure : / mmHG Vent. Rate : 083 BPM Atrial Rate : 083 BPM P-R Int : 182 ms QRS Dur : 106 ms QT Int : 456 ms P-R-T Axes : 066 -37 -68 degrees QTc Int : 535 ms Atrial-paced rhythm with occasional sinus complexes and with frequent Premature ventricular complexes Left axis deviation Incomplete right bundle branch block Confirmed by ADELIA RACHEL [id number]), manuscript editor WILLARD BANERJEE ([id number]) on 04/22/2018 5:19:16 PM Referred By: Confirmed By:ADELIA RACHEL
== END 2018-04-21 13:36 | DRG 291 ==
LOC: ERS 22:49 → IMCU/EMU 04-14 00:38
PROVIDERS: ADMIT Internal Medicine; ATTEND Internal Medicine
PROC: 5A09557 Assistance with Respiratory Ventilation, Greater than 96 Consecutive Hours, Continuous Positive Airway Pressure (ICD-10-PCS; principal; 2018-04-14)
DX: I11.0 Hypertensive heart disease with heart failure (principal); J96.21 Acute and chronic respiratory failure with hypoxia; J96.22 Acute and chronic respiratory failure with hypercapnia; J44.1 Chronic obstructive pulmonary disease with (acute) exacerbation; I47.2 Ventricular tachycardia; T82.897A Other specified complication of cardiac prosthetic devices, implants and grafts, initial encounter; R78.81 Bacteremia; I50.43 Acute on chronic combined systolic (congestive) and diastolic (congestive) heart failure; I42.9 Cardiomyopathy, unspecified; I48.2 Chronic atrial fibrillation; Z79.01 Long term (current) use of anticoagulants; M41.9 Scoliosis, unspecified; Z87.891 Personal history of nicotine dependence; Z86.73 Personal history of transient ischemic attack (TIA), and cerebral infarction without residual deficits; G47.33 Obstructive sleep apnea (adult) (pediatric); E78.5 Hyperlipidemia, unspecified; J98.4 Other disorders of lung; F41.9 Anxiety disorder, unspecified; G89.29 Other chronic pain; Z86.12 Personal history of poliomyelitis; I48.0 Paroxysmal atrial fibrillation; Z95.810 Presence of automatic (implantable) cardiac defibrillator
CPT/HCPCS: 36415; 36416; 71045; 80048; 80202; 82553; 83735; 83880; 84484; 85014; 85018; 85049; 87040; 90471; 90662; 93005; 93798; 94640; 94660; 94664; 96374; 96375; G0008; G8978-GP-CK; G8979-GP-CI; J1160; J1940; J2765; J2920; J2930; J3370; J7050; J7506; J7620; J8499

== ENCOUNTER 2018-04-25 15:46 | Emergency (ER) | payer MEDICARE ==
[2018-04-25 16:52] LABS: #Lymphocytes 0.6 thou/uL (1.20-3.40); #Monocytes 0.4 thou/uL (0.11-0.59); #Neutrophils 8.1 thou/uL (1.40-6.50); %Eosinophils 0.4 % (0.0-10.0); %Lymphocytes 6.7 % (21.0-51.0); %Monocytes 4.8 % (0.0-10.0); %Neutrophils 88.2 % (42.0-75.0); Mean Corpuscular Hemoglobin 32.4 pg (27.0-31.0); Mean Platelet Volume 8.2 fL (7.4-10.4); Platelet Count 154 thou/uL (130-400); RBC Distribution Width 14.5 % (11.5-14.5); Red Blood Cell (RBC) Count 4.01 mill/uL (4.70-6.10); White Blood Cell (WBC) Count 9.1 thou/uL (4.8-10.8)
[2018-04-25 17:13] LABS: ALT (SGPT) 25 U/L (8-55); AST (SGOT) 29 U/L (5-34); Albumin 2.9 g/dL (3.4-4.8); Alkaline Phosphatase 70 U/L (40-150); Anion Gap 11 mmol/L (10-20); BUN (Urea Nitrogen) 13 mg/dL (8.4-25.7); Bilirubin, Total 0.5 mg/dL (0.2-1.2); Calc. Creatinine Clearance 0 mL/min (70-130); Calcium 8.8 mg/dL (7.8-10.44); Carbon Dioxide 30 mmol/L (23-31); Chloride 98 mmol/L (98-107); Estimated GFR-MDRD Greater than 90; Globulin 1.9 g/dL (2.4-3.5); Glucose 135 mg/dL (83-110); Potassium 4.3 mmol/L (3.5-5.1); Protein, Total 4.8 g/dL (5.8-8.1); Sodium 135 mmol/L (136-145)
--- NOTE | 2018-04-25 17:26 | CT ---
CHEST CT SCAN WITHOUT IV CONTRAST: 04/25/18 HISTORY: 77-year-old male with history of chest pain with sudden onset. COMPARISON: Prior chest x-ray 04/13/18. FINDINGS: Right PICC line. Left ICD. There is very markedly severe scoliosis and associated deformity of the sp ine and chest markedly convexed to the right at the level of the lower thoracic spine upper lumbar sp ine level. There is some minimal vertical height loss of what appears to be T1 but this does not have an appearance indicating it is acute. There are multiple healed rib fractures noted bilaterally. The re is no evidence for an aortic aneurysm. There is some bilateral posterior pleural thickening. Minim al patchy parenchymal changes in the left lung including the left lower lobe and left upper lobe and lingula. There is also some bullous change and some fibrolinear and fibronodular parenchymal changes in the right lung base which has more the appearance of chronic change. No significant lobar confluen t pneumonia. Small hypodensities within the liver, evidence for small liver cysts. No significant acu te pleural effusion or pericardial effusion. No mediastinal mass or adenopathy. IMPRESSION: Very severe rotary scoliosis markedly convexed to the right side at the lower thoracic level with mul tiple healed rib fractures bilaterally as well as mild vertical height loss of T1 which appears more likely old. Patchy scattered parenchymal changes including some pleural based parenchymal changes in the left lower lobe and left upper lobe, possibilities include that of some patchy pneumonia or pneum onitis versus some underlying chronic change. Some bullous changes in the right lung base with some s carring having more of an old appearance. No evidence for confluent lobar pneumonia. No significant pleural effusion or pericardial effusion. Other findings as above. Prior CT chest 03/18/18, the left sided parenchymal changes are more prominent than on that study indicating that at least some of this is acute. Right sided changes appear to be stable or actually slightly improved. POS: NIKKI
[2018-04-25 17:34] LABS: CKMB 4.9 ng/mL (0-6.6)
== END 2018-04-25 18:34 ==
LOC: ERS 15:46
DX: R07.89 Other chest pain (principal); I49.9 Cardiac arrhythmia, unspecified; J44.9 Chronic obstructive pulmonary disease, unspecified; Z87.891 Personal history of nicotine dependence
CPT/HCPCS: 71250; 80053; 82553; 83880; 84484; 85025; 93005

== ENCOUNTER 2018-07-29 10:42 | Emergency (ER) | payer MEDICARE ==
--- NOTE | 2018-07-29 11:52 | RAD ---
FRadiograph right elbow 4 views: 07/29/2018 HISTORY: 77-year-old male with right elbow pain and swelling COMPARISON: None available FINDINGS: Diffuse osteopenia. Severe soft tissue swelling. Deformity of the radial head. Uncertain whether this is acute fracture or chronic hypertrophic degenerative changes. There is also DJD at the articulatio n between the humerus and ulna. Patient is unable to extend the elbow, and and the presence of the hi gh-grade DJD and osteopenia limits the evaluation. IMPRESSION: 1. Soft tissue swelling. 2. Osteoarthrosis. 3. Limited evaluation.
[2018-07-29] MEDS ORDERED: HYDROcodone/Acetaminophen 5/325 mg Tablet ONE (12:13)
== END 2018-07-29 12:52 | disposition home or self-care (01) ==
LOC: ERS 10:42
DX: M70.21 Olecranon bursitis, right elbow (principal); Z86.73 Personal history of transient ischemic attack (TIA), and cerebral infarction without residual deficits; J44.9 Chronic obstructive pulmonary disease, unspecified; I50.9 Heart failure, unspecified; Z87.891 Personal history of nicotine dependence

== ENCOUNTER 2018-11-03 21:07 | Observation (INO) | payer MEDICARE ==
[2018-11-03 22:46] LABS: Troponin I 0.044 ng/mL (< 0.028)
[2018-11-04] MEDS ORDERED: Bisacodyl 5 MG TAB PO PRN (00:44)
[2018-11-04] MEDS ORDERED: Acetaminophen 325 MG TAB PO PRN (00:44)
[2018-11-04] MEDS ORDERED: Senokot S 8.6-50 MG TAB PO PRN (00:44)
[2018-11-04 01:41] LABS: Troponin I 0.063 ng/mL (< 0.028)
[2018-11-04 02:26] VITALS: BMI 23.7
[2018-11-04] MEDS ORDERED: Gabapentin 100 MG CAP PO PRN (06:11)
[2018-11-04] MEDS ORDERED: Fluticasone Propionate Nasal Spray 16 gm Bottle NASAL PRN (06:11)
[2018-11-04] MEDS: Mometasone/Formoterol 120 PUFF INHALER INH SCH ×2 (06:46→18:34)
[2018-11-04 06:48] LABS: #Basophils 0.1 thou/uL (0.0-0.2); #Lymphocytes 1.4 thou/uL (1.20-3.40); #Monocytes 1.1 thou/uL (0.11-0.59); #Neutrophils 7.7 thou/uL (1.40-6.50); %Basophils 0.7 % (0.0-1.0); %Eosinophils 0.2 % (0.0-10.0); %Lymphocytes 13.2 % (21.0-51.0); %Monocytes 10.7 % (0.0-10.0); %Neutrophils 75.1 % (42.0-75.0); Hemoglobin 11.3 g/dL (14.0-18.0); Mean Corpuscular HGB CONC 28.5 g/dL (32.0-36.0); Mean Corpuscular Hemoglobin 28.4 pg (27.0-31.0); Mean Corpuscular Volume 99.5 fL (78.0-98.0); Mean Platelet Volume 8.9 fL (7.4-10.4); Platelet Count 234 thou/uL (130-400); RBC Distribution Width 15.8 % (11.5-14.5); Red Blood Cell (RBC) Count 3.98 mill/uL (4.70-6.10); White Blood Cell (WBC) Count 10.2 thou/uL (4.8-10.8)
[2018-11-04 06:56] LABS: Anion Gap 16 mmol/L (10-20); BUN (Urea Nitrogen) 23 mg/dL (8.4-25.7); Calc. Creatinine Clearance 78 mL/min (70-130); Calcium 10.5 mg/dL (7.8-10.44); Carbon Dioxide 26 mmol/L (23-31); Chloride 103 mmol/L (98-107); Estimated GFR-MDRD Greater than 90; Glucose 95 mg/dL (83-110); Potassium 4.6 mmol/L (3.5-5.1); Sodium 140 mmol/L (136-145)
[2018-11-04] MEDS ORDERED: Loperamide HCl 2 MG CAP PO PRN (07:05)
[2018-11-04] MEDS ORDERED: Nitroglycerin 0.4 MG TAB (25 Tab Bottle) SL PRN (07:05)
[2018-11-04] MEDS ORDERED: Cepastat Lozenges 1 LOZ PO PRN (07:05)
[2018-11-04] MEDS ORDERED: Sodium Chloride 0.65% Nasal 44 ML BOT EA NARE PRN (07:05)
[2018-11-04] MEDS ORDERED: Temazepam 15 MG CAP PO PRN (07:05)
[2018-11-04] MEDS ORDERED: Calcium Carbonate 500 MG ChewTAB PO PRN (07:05)
[2018-11-04] MEDS ORDERED: Loratadine 10 MG TAB PO PRN (07:05)
[2018-11-04] MEDS ORDERED: Diabetic Tussin 200 MG/10 ML UDCUP PO PRN (07:05)
[2018-11-04] MEDS ORDERED: Zolpidem Tartrate 5 MG TAB PO PRN (07:05)
[2018-11-04] MEDS ORDERED: Artificial Tears 18 DROP/0.9 ML EA EYE PRN (07:05)
[2018-11-04] MEDS ORDERED: hydrALAZINE 20 MG/ML VIAL SLOW IVP PRN (07:05)
[2018-11-04] MEDS ORDERED: Polyethylene Glycol 3350 17 GM Packet PO PRN (07:08)
[2018-11-04] MEDS ORDERED: Furosemide 40 MG TAB PO SCH (09:00)
[2018-11-04] MEDS: Calcium Carbonate + Vit D 1 TAB PO SCH (09:09)
[2018-11-04] MEDS: Sulfameth/Trimethoprim DS 800-160mg TAB PO SCH ×2 (09:10→21:29)
[2018-11-04] MEDS: Famotidine 20 MG TAB PO SCH ×2 (09:10→21:29)
[2018-11-04] MEDS: Apixaban 2.5 MG TAB PO SCH ×3 (09:10→21:39)
[2018-11-04] MEDS: Lisinopril 2.5 MG TAB PO SCH (09:10)
[2018-11-04] MEDS: Carvedilol 3.125 MG TAB PO SCH ×2 (09:10→21:29)
[2018-11-04] MEDS: Dofetilide 0.125 MG CAP PO SCH ×2 (09:10→21:29)
[2018-11-04] MEDS: Ferrous Sulfate 325 MG TAB PO SCH (09:10)
[2018-11-04] MEDS: Multivit, Therapeutic 1 TAB PO SCH (09:13)
[2018-11-04] MEDS: Aspirin 81 mg Enteric Coated Tablet PO SCH (09:13)
[2018-11-04] MEDS: Atorvastatin Calcium 20 MG TAB PO SCH (09:13)
[2018-11-04] MEDS: predniSONE 5 MG TAB PO SCH (09:13)
[2018-11-04] MEDS: Digoxin 0.125 MG TAB PO SCH (09:13)
[2018-11-04] MEDS: Potassium Chloride 20 MEQ TAB PO SCH (09:14)
[2018-11-04] MEDS: Terbinafine 1% 30 GM TUBE TOP SCH ×2 (09:14→21:30)
[2018-11-04] MEDS: traMADol HCl 50 MG TAB PO SCH ×2 (09:17→11:37)
[2018-11-04 10:43] LABS: Hemoglobin 10.3 g/dL (14.0-18.0); Platelet Count 216 thou/uL (130-400)
[2018-11-04 11:00] LABS: Calc. Creatinine Clearance 87 mL/min (70-130); Estimated GFR-MDRD Greater than 90
--- NOTE | 2018-11-04 13:00 | HP ---
PRIMARY CARE PHYSICIAN: Regan Babcock MD REASON FOR ADMISSION: Fall, great toe base fracture, ?syncope, mild acute on chronic systolic congestive heart failure exacerbation. HISTORY OF PRESENT ILLNESS: A 78-year-old male, who has chronic systolic congestive heart failure, chronic respiratory failure, on home oxygen, who had mechanical fall at home because he tripped and fell and subsequently, he injured his left foot. He was also having increasing shortness of breath. He was feeling dizzy and lightheaded. He was initially evaluated at [facility], where he had routine blood test done, which showed normal CBC, normal BMP, but his troponin was indeterminate and his BNP was elevated. His foot x-ray showed proximal phalanx of great toe fracture and CT brain was unremarkable. The patient was evaluated at [facility] Emergency Room and subsequently, he was transferred to our emergency room. REVIEW OF SYSTEMS: CONSTITUTIONAL: Negative for weight loss or gain, ability to conduct usual activities. SKIN: Negative for rash, itching. EYES: Negative for double vision, pain. ENT/MOUTH: Negative for nose bleeding, neck stiffness, pain, tenderness. CARDIOVASCULAR: Negative for palpitations, dyspnea on exertion, orthopnea. RESPIRATORY: Negative for shortness of breath, wheezing, cough, hemoptysis, fever or night sweats. GASTROINTESTINAL: Negative for poor appetite, abdominal pain, heartburn, nausea, vomiting, constipation, or diarrhea. GENITOURINARY: Negative for urgency, frequency, dysuria, nocturia. MUSCULOSKELETAL: Negative for pain, swelling. NEUROLOGIC/PSYCHIATRIC: Negative for anxiety, depression. ALLERGY/IMMUNOLOGIC: Negative for skin rash, bleeding tendency. Please see my HPI for pertinent positives and negatives. All other review of systems reviewed and negative except as mentioned in HPI. PAST MEDICAL HISTORY: Kyphoscoliosis; restrictive lung defect; history of CVA; COPD; chronic respiratory failure, on home oxygen; chronic systolic congestive heart failure with AICD; nonspecified atrial arrhythmia; chronic anticoagulation with Eliquis; atrial fibrillation; history of polio; sleep apnea, on CPAP; history of MRSA bacteremia. PAST SURGICAL HISTORY: AICD placement, hernia repair, right forearm repair, left elbow surgery, PICC line placement and removal. PAST PSYCHIATRIC HISTORY: Reviewed and negative. SOCIAL HISTORY: The patient is a former smoker. He quit smoking more than 20 years ago. He denies any alcohol abuse. He denies any other illicit drug abuse. FAMILY HISTORY: No significant family history of coronary artery disease, stroke, or cancer. ALLERGIES: IBUPROFEN. CURRENT HOME MEDICATIONS: 1. MiraLAX 17 g p.o. every other day. 2. DuoNeb q.4 hourly. 3. Gabapentin 100 mg q.8 hourly. 4. Eliquis 2.5 mg b.i.d. 5. Aspirin 81 mg daily. 6. Lipitor 20 mg p.o. daily. 7. Calcium with vitamin D one tablet daily. 8. Coreg 6.25 mg b.i.d. 9. Vitamin D3 of 5000 units p.o. daily. 10. Digoxin 125 mcg p.o. daily. 11. Tikosyn 250 mcg p.o. b.i.d. 12. Doxycycline 100 mg b.i.d. 13. Ferrous sulfate 325 mg daily. 14. Flonase nasal spray daily. 15. Breo Ellipta inhalation daily. 16. Lasix 40 mg daily. 17. Lisinopril 2.5 mg daily. 18. Claritin 10 mg p.o. daily. 19. Multivitamin one tablet p.o. daily. 20. Omeprazole 20 mg p.o. daily. 21. Potassium chloride 20 mEq p.o. daily. 22. Prednisone 10 mg daily. 23. Bactrim one tablet twice daily. 24. Lamisil 15 g topical application b.i.d. 25. Tramadol 50 mg q.4 hourly p.r.n. EMERGENCY ROOM COURSE: Reviewed. PHYSICAL EXAMINATION: VITAL SIGNS: Currently, blood pressure 100/64, pulse 71 and irregular, respiratory rate 18, saturation 93% on 2 L oxygen, weight 67 kg. GENERAL: The patient is currently alert, awake, chronically ill, no obvious acute distress. Able to talk in full sentence. HEENT: Head; normocephalic, atraumatic. Eyes; pupils are round, reactive to light. Extraocular muscle intact. ENT; oropharynx within normal limits. Moist mucous membranes. No oral lesion. No pharyngeal erythema. No exudate. NECK: Supple. No JVD. No thyromegaly. No carotid bruit. LUNGS: Pacemaker in left upper chest. The patient does have occasional end-expiratory wheezing. No obvious rales heard. The patient has kyphoscoliosis. CARDIAC: S1 and S2 appears slightly irregular. No murmur. No gallop. No rub. ABDOMEN: Soft. Bowel sounds present. Nontender. Nondistended. No organomegaly. No mass. No suprapubic tenderness. BACK: Unremarkable. No CVA tenderness. EXTREMITIES: Upper extremity, the patient does have joint deformity, but otherwise range of motion is normal. Lower extremity, the patient's left foot is covered with dressing. He has hematoma of the toe, especially great and second toe. NEUROLOGIC: Nonfocal examination. He is moving all 4 limbs. SKIN: No skin rash, but his skin is dry. PSYCHIATRIC: Normal affect. SIGNIFICANT LABORATORY DATA: EKG showing AFib with controlled ventricular response, occasional premature supraventricular complexes, incomplete right bundle-branch block pattern, nonspecific ST-T changes. Foot x-ray, acute fracture at the base of the proximal phalanx of the great toe. CT brain, negative for any acute intracranial process. ASSESSMENT AND PLAN/IMPRESSION: 1. Acute on chronic systolic congestive heart failure stage C, mild exacerbation. 2. Acute fracture of base of the proximal phalanx, left toe. 3. Syncope/dizziness/mechanical fall. 4. Severe tricuspid regurgitation. 5. Moderate mitral regurgitation. 6. Moderate aortic regurgitation. 7. History of rheumatoid arthritis with deformity. 8. Sleep apnea, on nocturnal CPAP. 9. Kyphoscoliosis. 10. Chronically elevated troponin. 11. Chronic cor pulmonale. 12. Chronic respiratory failure with hypoxia and hypercapnia, on home oxygen. 13. Chronic obstructive pulmonary disease. 14. Chronic atrial fibrillation. 15. Chronic anticoagulation with Eliquis. 16. Anemia, normocytic normochromic. PLAN: 1. Observation to telemetry floor. 2. Lasix 20 mg IV b.i.d. Resume selected home medication. Monitor vitals. Pain controlled with pain medication. Continue respiratory therapy with DuoNeb and Dulera. Orthopedic will be consulted for toe fracture. We will repeat labs tomorrow. 3. DVT prophylaxis. The patient is already on Eliquis therapy. 4. GI prophylaxis. Pepcid 20 mg b.i.d. CODE STATUS: The patient is full code. DISPOSITION PLAN: Based on clinical course, I tried to reach the patient's daughter on phone to discuss code status because the patient wants to discuss with Antionette and I could not reach her. Plan of care discussed with the patient in detail. Job ID: [id number]
[2018-11-04] MEDS ORDERED: Furosemide 40 MG/4 ML VIAL SLOW IVP SCH (14:00)
[2018-11-04] MEDS ORDERED: traMADol HCl 50 MG TAB PO PRN (14:13)
[2018-11-04] MEDS: Furosemide 40 MG/4 ML VIAL SLOW IVP SCH (15:02)
[2018-11-04 22:57] LABS: Bacteria/HPF 2+ HPF (None Seen); Bilirubin Negative (Negative); Blood, Urine 1+ (Negative); Clarity Turbid (Clear); Glucose, Urine (Dipstick) Normal (Negative); Leukocyte Negative Leu/uL (Negative); Mucous/LPF Rare LPF (<2+); Nitrite Negative (Negative); Protein, Urine (Dipstick) Negative (Neg-Trace); Squamous Epithelial 0-3 HPF (0-3); Urobilinogen Normal mg/dL (Less than 2)
--- NOTE | 2018-11-05 00:36 | CON ---
DATE OF CONSULTATION: 11/04/2018 HISTORY OF PRESENT ILLNESS: Mr. Rosa is a 78-year-old male, who primarily ambulates in a wheelchair. The patient fell from his wheelchair and injured his left great toe. He also hit his head during the fall. He was initially seen in the emergency room in [place], where x-rays revealed nondisplaced fracture at the medial base of the proximal phalanx. The patient was transferred here for further evaluation. I was consulted for the fracture of the great toe. PHYSICAL EXAMINATION: The patient has swelling and bruising in the left great toe. Great toe is in good alignment. Skin is in good condition. Superficial laceration, which shows no signs of infection. DIAGNOSTIC DATA: X-ray shows a fracture at the medial base of the proximal phalanx. Left great toe in anatomic alignment. PLAN: The patient does not require any surgical procedure. We will put him in a postoperative shoe whenever he is out of bed. Allow the fracture to heal, which should take approximately 6 to 8 weeks. Job ID: [id number]
[2018-11-05] MEDS: HYDROcodone/Acetaminophen 5/325 mg Tablet PO PRN ×2 (00:41→12:26)
[2018-11-05] MEDS: Furosemide 40 MG/4 ML VIAL SLOW IVP SCH ×2 (05:59→14:19)
[2018-11-05 06:39] LABS: #Basophils 0.1 thou/uL (0.0-0.2); #Lymphocytes 1.1 thou/uL (1.20-3.40); #Monocytes 0.8 thou/uL (0.11-0.59); #Neutrophils 5.4 thou/uL (1.40-6.50); %Basophils 0.7 % (0.0-1.0); %Eosinophils 0.2 % (0.0-10.0); %Lymphocytes 14.8 % (21.0-51.0); %Monocytes 11.4 % (0.0-10.0); %Neutrophils 72.8 % (42.0-75.0); Mean Corpuscular HGB CONC 30.2 g/dL (32.0-36.0); Mean Corpuscular Hemoglobin 29.6 pg (27.0-31.0); Mean Corpuscular Volume 98.1 fL (78.0-98.0); Mean Platelet Volume 8.5 fL (7.4-10.4); Platelet Count 222 thou/uL (130-400); RBC Distribution Width 15.6 % (11.5-14.5); Red Blood Cell (RBC) Count 3.37 mill/uL (4.70-6.10); White Blood Cell (WBC) Count 7.4 thou/uL (4.8-10.8)
[2018-11-05 07:06] LABS: ALT (SGPT) 15 U/L (8-55); AST (SGOT) 25 U/L (5-34); Alkaline Phosphatase 79 U/L (40-150); Anion Gap 12 mmol/L (10-20); BUN (Urea Nitrogen) 17 mg/dL (8.4-25.7); Bilirubin, Total 0.8 mg/dL (0.2-1.2); Calc. Creatinine Clearance 86 mL/min (70-130); Calcium 10.3 mg/dL (7.8-10.44); Carbon Dioxide 30 mmol/L (23-31); Chloride 104 mmol/L (98-107); Estimated GFR-MDRD Greater than 90; Globulin 2.4 g/dL (2.4-3.5); Glucose 69 mg/dL (83-110); Potassium 4.1 mmol/L (3.5-5.1); Protein, Total 5.4 g/dL (5.8-8.1); Sodium 142 mmol/L (136-145); Uric Acid 5.2 mg/dL (3.5-7.2)
[2018-11-05] MEDS: Mometasone/Formoterol 120 PUFF INHALER INH SCH (07:07)
[2018-11-05] MEDS: Carvedilol 3.125 MG TAB PO SCH (09:43)
[2018-11-05] MEDS: Lisinopril 2.5 MG TAB PO SCH (09:44)
[2018-11-05] MEDS: predniSONE 5 MG TAB PO SCH (09:48)
[2018-11-05] MEDS: Apixaban 2.5 MG TAB PO SCH (09:49)
[2018-11-05] MEDS: Aspirin 81 mg Enteric Coated Tablet PO SCH (09:49)
[2018-11-05] MEDS: Atorvastatin Calcium 20 MG TAB PO SCH (09:50)
[2018-11-05] MEDS: Calcium Carbonate + Vit D 1 TAB PO SCH (09:50)
[2018-11-05] MEDS: Multivit, Therapeutic 1 TAB PO SCH (09:51)
[2018-11-05] MEDS: Ferrous Sulfate 325 MG TAB PO SCH (09:51)
[2018-11-05] MEDS: Potassium Chloride 20 MEQ TAB PO SCH (09:52)
[2018-11-05] MEDS: Dofetilide 0.125 MG CAP PO SCH (09:52)
[2018-11-05] MEDS: Sulfameth/Trimethoprim DS 800-160mg TAB PO SCH (09:52)
[2018-11-05] MEDS: Famotidine 20 MG TAB PO SCH (09:52)
[2018-11-05] MEDS: Digoxin 0.125 MG TAB PO SCH (09:52)
[2018-11-05] MEDS: Terbinafine 1% 30 GM TUBE TOP SCH (09:53)
--- NOTE | 2018-11-05 10:14 | DIS ---
DATE OF ADMISSION: 11/03/2018 DATE OF DISCHARGE: 11/05/2018 PRIMARY CARE PHYSICIAN: Dr. Jody Chand. DISCHARGE DISPOSITION: Bharathi Poole. PRIMARY DISCHARGE DIAGNOSES: 1. Acute on chronic encephalopathy (confusion). 2. Mechanical fall and fracture of base of left great toe. 3. Mild acute on chronic systolic congestive heart failure exacerbation. SECONDARY DISCHARGE DIAGNOSES: Physical deconditioning, severe tricuspid regurgitation, rheumatoid arthritis, sleep apnea, moderate mitral regurgitation, moderate aortic regurgitation, kyphoscoliosis, chronically elevated troponin, chronic cor pulmonale, chronic obstructive pulmonary disease, chronic respiratory failure with hypoxia and hypercapnia on home oxygen, chronic atrial fibrillation, and normocytic normochromic anemia, chronic systolic and diastolic heart failure. PRIMARY PROCEDURE/OPERATION: None. RADIOLOGICAL INVESTIGATION: CT of brain and x-ray of the foot. SIGNIFICANT LABORATORY DATA: WBC 7.4, hemoglobin 10.0, platelet 222. Sodium 142, creatinine 0.69. LFT normal. Troponin 0.063. Urinalysis, bacteriuria. DISCHARGE MEDICATIONS: 1. MiraLAX 17 g p.o. every other day. 2. DuoNeb q.4 hourly. 3. Gabapentin 100 mg q.8 hourly p.r.n. 4. Eliquis 2.5 mg b.i.d. 5. Aspirin 81 mg daily. 6. Lipitor 20 mg p.o. daily. 7. Calcium with vitamin D one tablet daily. 8. Coreg 6.25 mg b.i.d. 9. Vitamin D3 of 5000 units p.o. daily. 10. Digoxin 0.125 mg p.o. daily. 11. Tikosyn 250 mcg p.o. b.i.d. 12. Doxycycline 100 mg b.i.d. 13. Ferrous sulfate 325 mg p.o. daily. 14. Flonase nasal spray daily. 15. Breo Ellipta inhalation daily. 16. Lasix 40 mg daily. 17. Lisinopril 2.5 mg p.o. daily. 18. Claritin 10 mg daily. 19. Multivitamin one tablet p.o. daily. 20. Omeprazole 20 mg p.o. daily. 21. Potassium chloride 20 mEq p.o. daily. 22. Prednisone 10 mg daily. 23. Bactrim one tablet twice daily. 24. Lamisil topical b.i.d. 25. Tramadol 50 mg q.4 hourly p.r.n. 26. Ultracet two tablets t.i.d. p.r.n. 27. Macrobid 100 mg p.o. b.i.d. for 7 days. CONTRAINDICATION: None. CODE STATUS: Full code. INPATIENT CONSULTANTS: Dr. Bentley has consulted and Dr. Luna has been consulted. TEST RESULT PENDING ON DISCHARGE: None. ALLERGIES: IBUPROFEN. DISCHARGE PLAN: Posthospital, the patient will follow up with primary care physician. HOSPITAL COURSE: A 78-year-old male, who lives at [facility], where he had mechanical fall. Subsequently, he had injury to left foot and he had foot x-ray and he was diagnosed with fracture of the proximal phalanx of the base of the left great toe. We consulted Orthopedic Physician and they recommended postoperative shoes, and he does not require any surgical intervention. It will heal naturally over 6 to 8 weeks. The patient had mechanical fall, and there was concern of syncope versus dizziness and that is why we interrogated his pacemaker. We did not find any significant arrhythmia. Cardiology has been consulted. This patient had mild CHF exacerbation that was treated with Lasix while in hospital. This patient's home medication was continued while in the hospital. The patient's family member was worried about his confusion. He has mild encephalopathy that we are suspecting from possibly early infection and that is why on the day of discharge, I did blood culture, urine culture and I started Macrobid for possible asymptomatic UTI. He is continuing his Bactrim for his previous staph infection. I think this patient is up to his baseline level, and he will need further evaluation at [facility]. He needs to be followed up on blood culture and urine culture result and change antibiotic therapy accordingly. I spoke with the patient's cousin and updated about plan. He will go back to [facility]. I have seen and examined the patient today. His examination unchanged from yesterday. Paperwork for discharge done and discharge medication reconciliation done. Job ID: [id number]
[2018-11-05 16:05] VITALS: BP 115/57; TEMP 99
== END 2018-11-05 18:05 ==
LOC: ERS 21:07 → 2NO 23:24
PROVIDERS: ADMIT Internal Medicine; ATTEND Internal Medicine
DX: G93.40 Encephalopathy, unspecified (principal); S92.415A Nondisplaced fracture of proximal phalanx of left great toe, initial encounter for closed fracture; I50.43 Acute on chronic combined systolic (congestive) and diastolic (congestive) heart failure; I36.1 Nonrheumatic tricuspid (valve) insufficiency; I34.0 Nonrheumatic mitral (valve) insufficiency; I35.1 Nonrheumatic aortic (valve) insufficiency; M06.9 Rheumatoid arthritis, unspecified; G47.30 Sleep apnea, unspecified; M41.9 Scoliosis, unspecified; R79.89 Other specified abnormal findings of blood chemistry; J96.12 Chronic respiratory failure with hypercapnia; J96.11 Chronic respiratory failure with hypoxia; J44.9 Chronic obstructive pulmonary disease, unspecified; I48.2 Chronic atrial fibrillation; D64.9 Anemia, unspecified; Z99.81 Dependence on supplemental oxygen; Z99.89 Dependence on other enabling machines and devices; Z99.3 Dependence on wheelchair; Z87.891 Personal history of nicotine dependence; Z88.6 Allergy status to analgesic agent; Z79.01 Long term (current) use of anticoagulants; Z79.82 Long term (current) use of aspirin; Z79.2 Long term (current) use of antibiotics; Z79.891 Long term (current) use of opiate analgesic; Z79.51 Long term (current) use of inhaled steroids; Z79.899 Other long term (current) drug therapy; W01.10XA Fall on same level from slipping, tripping and stumbling with subsequent striking against unspecified object, initial encounter
CPT/HCPCS: 80048; 80053; 81001; 82565; 83735; 84484 ×2; 84550; 85014; 85018; 85025 ×2; 85049; 87040; 87077; 87086; 87186; 93005; 94640 ×5; 96374; 97139 ×2; 97530; 99284; G0378 ×2; 36415; J1940; J7512; J7620; J8499

== ENCOUNTER 2019-02-07 22:32 | Inpatient (IN) | payer MEDICARE ==
[~2019-02-07 22:32] MED LIST changes: -ISOVUE-370 76%-LOCM 1 ML ONE; +Iopamidol 370 76% 100 ML VIAL ONE
[2019-02-07] MEDS ORDERED: Ondansetron PF 4 MG/2 ML Vial ONE (22:47)
[2019-02-07] MEDS ORDERED: Morphine 4 MG/ML VIAL ONE (22:47)
[2019-02-07 23:08] LABS: Hemoglobin 11.5 g/dL (14.0-18.0); Mean Corpuscular HGB CONC 30.5 g/dL (32.0-36.0); Mean Corpuscular Hemoglobin 28.5 pg (27.0-31.0); Mean Corpuscular Volume 93.3 fL (78.0-98.0); Mean Platelet Volume 8.7 fL (7.4-10.4); Platelet Count 182 thou/uL (130-400); RBC Distribution Width 14.9 % (11.5-14.5); Red Blood Cell (RBC) Count 4.03 mill/uL (4.70-6.10); White Blood Cell (WBC) Count 21.5 thou/uL (4.8-10.8)
[2019-02-07 23:28] LABS: ALT (SGPT) 12 U/L (8-55); AST (SGOT) 23 U/L (5-34); Albumin 3.1 g/dL (3.4-4.8); Alkaline Phosphatase 98 U/L (40-110); Anion Gap 12 mmol/L (10-20); BUN (Urea Nitrogen) 32 mg/dL (8.4-25.7); Band 12 % (5-11); Bilirubin, Total 0.4 mg/dL (0.2-1.2); Calc. Creatinine Clearance 0 mL/min (70-130); Calcium 9.9 mg/dL (7.8-10.44); Carbon Dioxide 35 mmol/L (23-31); Chloride 100 mmol/L (98-107); Estimated GFR-MDRD 66; Globulin 2.9 g/dL (2.4-3.5); Glucose 110 mg/dL (83-110); Lipase Less than 4 U/L (8-78); Lymphocytes 1 % (21-51); MDiff Complete? YES; Monocytes 8 % (0-10); Neutrophil 79 % (42-75); Potassium 4.5 mmol/L (3.5-5.1); Sodium 142 mmol/L (136-145)
[2019-02-07] MEDS ORDERED: cefTRIAXone\\ROCEPHIN 2 GM VIAL ONE (23:42)
--- NOTE | 2019-02-07 23:45 | CT ---
ABDOMEN AND PELVIC CT WITH CONTRAST: 02/07/19 CLINICAL INDICATION: Pain. FINDINGS: Reference made to 02/20/18. Prominent scoliosis distorts abdominal contents. Multiple calcified gallstones are present. Stable cy sts and additional hypodensities too small to further characterize within the liver are redemonstrate d. There is moderate distention of the left renal collecting system which is the result of two adjace nt distal left ureteral calculi, the largest of which measures 5 to 6 mm and the additional measurin g approximately 4 mm. Redemonstration of exophytic cysts and parenchymal cysts of the left kidney. Ri ght kidney is unremarkable. Motion artifact limits evaluation of the abdomen. Diffuse vascular diseas e is present. There is enlargement and heterogeneity of the partially calcified prostate gland. Adjac ent urinary bladder demonstrates mild wall thickening. It may be related to sequela from chronic outl et obstruction. Redemonstration of multifocal compression deformities of the markedly scoliotic thora columbar spine. The visualized lung bases reveal patchy densities, incompletely assessed which may be on the basis of volume loss and/or pneumonitis. Correlate clinically. IMPRESSION: Moderate left hydroureteronephrosis due to two adjacent distal left ureteral calculi measuring approx imately 5-6 mm and 4 mm. Recommend urology consultation for further evaluation. POS: [facility] [place]
[2019-02-07 23:48] LABS: Bilirubin Negative (Negative); Blood, Urine 3+ (Negative); Clarity Turbid (Clear); Glucose, Urine (Dipstick) Normal (Negative); Leukocyte 500 Leu/uL (Negative); Nitrite 1+ (Negative); Protein, Urine (Dipstick) 200 mg/dL (Neg-Trace); RBC/HPF Greater than 50 HPF (0-3); Squamous Epithelial None Seen HPF (0-3); Urobilinogen Normal mg/dL (Less than 2); WBC/HPF Greater than 50 HPF (0-3)
[2019-02-07 23:49] LABS: Bacteria/HPF 1+ HPF (None Seen)
--- NOTE | 2019-02-08 01:49 | CON ---
DATE OF CONSULTATION: 02/07/2019 SERVICE: Urology. REASON FOR CONSULTATION: Ureteral stone with sepsis. HISTORY OF PRESENT ILLNESS: Mr. Rosa is a 78-year-old white male with history significant for atrial fibrillation and anticoagulation use with severe scoliosis, who presented with approximately 2-3 day history of generalized malaise, and abdominal pain and flank pain. He has no history of nephrolithiasis and did not really know what was happening other than he was not feeling well and having intermittent left-sided abdominal and left flank discomfort. When he started throwing up and losing more appetite with worsening pain, they brought him to the emergency room tonight at which point, he underwent a CT scan, which demonstrated 4 and 5 mm mid to distal left ureteral stones with hydronephrosis. Urinalysis was significant for nitrite positive urine with bacteria. Serum white count of 21,000, and creatinine of 1.09. He was tachycardic to 119, although his blood pressure was normal. The family reports that he has not been having any fevers. On my discussion with the patient, he states that he does not normally have any significant urinary problems, although he has had problems with urinary tract infections. His urine stream is not great, but he does not complain significantly of this. He has no history of kidney stones or prior urologic surgeries. ALLERGIES: IBUPROFEN. HOME MEDICATIONS: 1. Albuterol. 2. Aspirin. 3. Atorvastatin. 4. Breo Ellipta (aerosol powder). 5. Calcium carbonate. 6. Coreg. 7. Diclofenac. 8. Digoxin. 9. Dofetilide. 10. Doxycycline. 11. Eliquis. 12. Ferrous sulfate. 13. Flonase. 14. Furosemide. 15. Neurontin. 16. Lamisil. 17. Lisinopril. 18. Loratadine. 19. MiraLAX. 20. Omeprazole. 21. Potassium chloride. 22. Prednisone. 23. Prostat. 24. Multivitamins. 25. Tramadol. 26. Vitamin C. 27. Vitamin D3. 28. Zinc. PAST MEDICAL HISTORY: 1. Recurrent urinary tract infections. 2. Osteoarthritis. 3. Severe scoliosis. 4. History of encephalopathy. 5. Hyperlipidemia. 6. History of polio. 7. Hypertension. 8. Atrial fibrillation. 9. Congestive heart failure. 10. History of CVA. 11. COPD. 12. Bursitis. 13. Gastroesophageal reflux disease. 14. Muscle wasting. 15. Severe ambulatory dysfunction. 16. Asthma. 17. High fall risk. PAST SURGICAL HISTORY: 1. Orthopedic surgeries. 2. Ulcer debridement. FAMILY HISTORY: Significant for nephrolithiasis. SOCIAL HISTORY: The patient lives at [facility]. Denies illicit drug use, alcohol use, or tobacco abuse. REVIEW OF SYSTEMS: A 12-point review of systems reviewed, negative other than what was commented on the HPI. PHYSICAL EXAMINATION: VITAL SIGNS: Temperature 98.9, pulse 119, blood pressure 119/87, respirations 20, saturations 98% on room air. GENERAL: The patient appears severely contracted with severe scoliosis. Appears older than stated age, otherwise communicative and alert, answering questions appropriately. HEENT: Normocephalic, atraumatic. Pupils are symmetric and round. Sclerae are nonicteric pupils. Trachea is midline. Moist mucous membranes. CARDIOVASCULAR: Irregularly irregular rhythm. Normal rate. Normal S1 and S2. Symmetric pulses. CHEST: No increased work of breathing. Symmetric expansion of the lungs. Diminished breath sounds. ABDOMEN: Soft, minimally tender to palpation on the left, nondistended. No suprapubic tenderness. No obvious organomegaly. No obvious hernias. : Deferred at this time. EXTREMITIES: No clubbing, cyanosis, or edema. MUSCULOSKELETAL: There is significant lower extremity wasting. There is also severe scoliosis and significant contractures of the patient's digits and spine with significant postural deformities. NEUROLOGIC: Cranial nerves 2 through 12 appear grossly intact. The patient does appear to have lower extremity weakness. No other obvious motor or sensory deficits identified. PSYCHIATRIC: Alert orient x3. Appropriate mood and affect. SKIN: Warm and dry. No rashes or lesions. Good turgor. LYMPH: There are no enlarged lymph nodes in the cervical, supraclavicular, axillary, or inguinal regions. LABORATORY EVALUATION: The full set of labs are in the [facility] system, which I have reviewed. Pertinent positives are noted in the HPI. CT, I have reviewed the CT images myself. The patient does show severe scoliosis. There is moderate to severe hydronephrosis on the left with hydroureter down to the level of the mid to distal ureter where two stones are found measuring 4 mm and 5 mm respectively resulting in the obstruction. There is also mild thickening enhancement of the ureter and renal pelvis with high risk of possible pyelonephritis. No other stones are noted within the kidneys. ASSESSMENT AND PLAN: A 78-year-old white male with atrial fibrillation, heart failure, chronic obstructive pulmonary disease, multiple comorbidities with systemic inflammatory response syndrome criteria and likely early sepsis with ureteral stones on the left. Given the criteria, I would not recommend conservative measures with antibiotics alone. I think the patient would do best with ureteral stent placement along with antibiotics. Blood and urine cultures have already been taken. The patient has now been started on ceftriaxone and vancomycin. I think these antibiotics are appropriate for now so long as the patient continues to improve. I would recommend taking the patient to the operating room for cystoscopy and left ureteral stent placement. I discussed the procedure with the family and the patient including risks, which include, but are not limited to bleeding, worsening infection, damage to the ureters, inability to pass the stent, ureteral stricture or injury, renal injury, bladder injury, and need for further procedures. The patient understands these risks and states he is willing to proceed forward. I have also counseled him and the family that the ureteral stent cannot stay in and it is imperative that he keep followup appointment so that we may ultimately treat the stones in the future and remove his stent so that he does not significant health compromise or renal loss from a retained ureteral stent. He understands and states he will keep all followup appointments. I would recommend admission to the medical service due to his multiple comorbidities and we will monitor him closely and once he has his cultures back, we can put him on oral antibiotics for 2 weeks at which time, we will then plan for definitive stone removal. Job ID: [id number]
[2019-02-08] MEDS ORDERED: Iothalamate Meglumine 60% 50 ML VIAL FS ONE (02:02)
[2019-02-08] MEDS ORDERED: Ondansetron HCl/PF 4 MG/2 ML Vial IVP PRN (02:26)
[2019-02-08] MEDS ORDERED: Promethazine HCl 25 MG/ML VIAL IM PRN (02:26)
[2019-02-08] MEDS ORDERED: Promethazine HCl 25 MG/ML VIAL SLOW IVP PRN (02:26)
--- NOTE | 2019-02-08 02:28 | HP ---
CHIEF COMPLAINT: Abdominal pain and left flank pain. HISTORY OF PRESENT ILLNESS: Mr. Rosa is a 78-year-old male, with multiple comorbidities including scoliosis, CVA, COPD, chronic respiratory failure on 2-3 L/minute nasal cannula at home, congestive heart failure, cardiac arrhythmias, AICD, polio as a child, presents to the emergency room with abdominal pain and left flank pain for the last 2 days. Today he started having nausea and vomiting. Unable to tolerate food. In the emergency room, the patient was found to be tachycardic, tachypneic. On lab work, the patient was found to have a WBC count of 21,500, urine showing urinary tract infection and hematuria. CT of the abdomen and pelvis, the patient was found to have moderate left hydroureteronephrosis due to 2 adjacent distal left ureteral calculi measuring approximately 5-6 mm and 4 mm. Urology is being consulted. The patient is started on IV antibiotics. Urologist is planning to take the patient to place stents. The patient is being admitted to the hospital for further management. PAST MEDICAL HISTORY: As mentioned above in the History of Present Illness. PAST SURGICAL HISTORY: 1. Hernia repair. 2. Right forearm surgery. 3. AICD. 4. PICC line placement and removal. SOCIAL HISTORY: Denies alcohol use, is a former tobacco user. FAMILY HISTORY: Reviewed and noncontributory. HOME MEDICATIONS: Please see home medication reconciliation form for updated medications. ALLERGIES: TO IBUPROFEN. REVIEW OF SYSTEMS: Review of 14 systems negative except what is mentioned in History of Present Illness. PHYSICAL EXAMINATION: GENERAL: The patient is awake, alert, in moderate distress. HEAD AND NECK: Normocephalic, atraumatic. NECK: Supple. CHEST: Scoliosis, chest wall deformity, and decreased air entry bilaterally. HEART: S1, S2. Regular, tachycardic. ABDOMEN: Soft with left flank tenderness. Bowel sounds present. NEUROLOGIC: Awake, alert, oriented x3. PSYCH: Normal mood. EXTREMITIES: No clubbing or cyanosis. LABORATORY DATA: As mentioned above in History of Present Illness. CT of the abdomen and pelvis as mentioned above in History of Present Illness. ASSESSMENT: 1. Sepsis secondary to infected kidney stones. 2. Left ureteral stones, infected. 3. Left hydronephrosis. 4. Chronic respiratory failure, on home oxygen. 5. Scoliosis. 6. Chronic obstructive pulmonary disease. 7. History of cardiac arrhythmias. 8. Automatic implantable cardioverter-defibrillator. PLAN: 1. Admit to IMCU. 2. Septic workup including blood cultures, urine cultures. 3. Urology is being consulted. The plan to take the patient for stent placement. 4. Keep n.p.o. for now. 5. IV fluids. 6. IV antibiotics. Continue with his vancomycin and cefepime. 7. Reconcile home medications. 8. DVT prophylaxis as appropriate. 9. Expected length of stay 2 midnights or more. 10. Case discussed with the patient and family. Job ID: [id number]
--- NOTE | 2019-02-08 02:35 | OP ---
DATE OF PROCEDURE: 02/08/2019 SERVICE: Urology. PREOPERATIVE DIAGNOSIS: Sepsis with left ureteral stones. POSTOPERATIVE DIAGNOSIS: Sepsis with left ureteral stones. PROCEDURE PERFORMED: Cystoscopy with left ureteral stent placement. INDICATION FOR PROCEDURE: Mr. Rosa is a 78-year-old white male with multiple comorbidities, who presented with left ureteral stones 4 and 5 mm in the left mid to distal ureter. He has evidence of sepsis by SIRS criteria, elevated white count, and nitrite positive urine. He is being brought urgently to the operating room for cystoscopy and left ureteral stent placement after risks and benefits have been discussed. The patient has agreed to proceed forward. DESCRIPTION OF PROCEDURE: After identification of armband and verification of consent, the patient was brought back to the operating room. He underwent general anesthesia with an LMA. He was placed in dorsal lithotomy position and prepped and draped in usual sterile fashion. After appropriate time-out, a lubricated 22-Lao rigid cystoscope was introduced per urethra into the bladder. The urethra was relatively normal without any significant abnormalities. The prostate was only mildly hypertrophic. The bladder had extremely turbid urine precluding proper cystoscopy. Both ureters were in their orthotopic location. The bladder was irrigated out using the irrigation from the cystoscope and the left ureteral orifice was identified. This was cannulated with a 0.035 Sensor wire up to the level of renal pelvis. Renal pelvis was distended and still retained contrast from the contrasted CT. The renal parenchyma was also opacified due to retained contrast. The wire was passed with ease up into the renal pelvis, and then a 6 x 24 double-J stent with no string was advanced over the Sensor wire up to the level of renal pelvis. The wire was then removed leaving a good curl in the kidney and a good curl in the bladder. The bladder was then emptied and the cystoscope removed. The patient then awakened and taken to PACU for recovery in stable condition. COMPLICATIONS: None. ESTIMATED BLOOD LOSS: Minimal. RETAINED TUBES AND DRAINS: 6 x 24 double-J stent on the left. SPECIMENS: None. DISPOSITION: The patient will be admitted to the Hospitalist Service. Once cultures are back, we will set him on appropriate antibiotics for 2 weeks, at which point, we will bring him back for definitive stone management. Job ID: [id number]
[2019-02-08] MEDS: Sodium Chloride 0.45% 1,000 ML IV SCH ×2 (03:10→03:30)
[2019-02-08] MEDS: Morphine 2 MG/ML SYRINGE SLOW IVP PRN ×3 (05:11→22:39)
[2019-02-08 06:19] LABS: Anion Gap 14 mmol/L (10-20); BUN (Urea Nitrogen) 29 mg/dL (8.4-25.7); Calc. Creatinine Clearance 58 mL/min (70-130); Calcium 9.7 mg/dL (7.8-10.44); Carbon Dioxide 23 mmol/L (23-31); Chloride 104 mmol/L (98-107); Estimated GFR-MDRD 69; Glucose 101 mg/dL (83-110); Potassium 4.3 mmol/L (3.5-5.1); Sodium 137 mmol/L (136-145)
[2019-02-08 06:24] LABS: Band 18 % (5-11); Hemoglobin 12.1 g/dL (14.0-18.0); Lymphocytes 6 % (21-51); MDiff Complete? YES; Mean Corpuscular HGB CONC 30.1 g/dL (32.0-36.0); Mean Corpuscular Hemoglobin 28.4 pg (27.0-31.0); Mean Corpuscular Volume 94.3 fL (78.0-98.0); Mean Platelet Volume 9.3 fL (7.4-10.4); Neutrophil 76 % (42-75); Platelet Count 165 thou/uL (130-400); Red Blood Cell (RBC) Count 4.26 mill/uL (4.70-6.10); White Blood Cell (WBC) Count 16.2 thou/uL (4.8-10.8)
[2019-02-08 08:07] LABS: Digoxin 0.56 ng/mL (0.8-2.0)
[2019-02-08 08:08] LABS: Actual Bicarbonate (HCO3a) 29.7 mEq/L (22-28); Base Excess (BEa) 3.8 mEq/L (-2.0 to +3.0); CO2 Tension 50.7 mmHg (35.0-45.0); Calcium, Ionized 1.27 mmol/L (1.12-1.30); Carboxyhemoglobin (COHb) 1.8 gm% (0.0-3.0); Hemoglobin (Hb) 11.7 g/dL (14.0-18.0); Potassium - ABG Lab 3.78 mmol/L (3.70-5.30); pH, Arterial 7.39 (7.35-7.45)
[2019-02-08 08:09] LABS: O2 Tension (PaO2) 57.4 mmHg (> 70.0); Puncture Site RR
[2019-02-08 08:10] LABS: ALV-art Gradient 135.905 (0-20)
--- NOTE | 2019-02-08 08:18 | RAD ---
PORTABLE CHEST: INDICATION: Dyspnea. COMPARISON: 09/26/2018. FINDINGS: Cardiomegaly. There is evidence of left basilar infiltrate or consolidation, unchanged in appearance . Severe scoliotic curvature of the thoracic spine with convexity to the right produces density in the right lung base and obscures the right lung base. This is a stable finding. IMPRESSION: Cardiomegaly with mild vascular engorgement. Left basilar infiltrate or consolidation cannot be excl uded. POS: OFF
[2019-02-08] MEDS: Cefepime 1 GM in Sodium Chloride 0.9% 100 ML IVPB SCH ×2 (08:46→20:36)
[2019-02-08] MEDS ORDERED: Digoxin 0.5 MG/2 ML AMP ONE (09:10)
[2019-02-08] MEDS: Acetaminophen 650 MG in Premix Bag 1 BAG IVPB SCH ×3 (09:56→20:37)
[2019-02-08] MEDS: Digoxin 0.5 MG/2 ML AMP SLOW IVP SCH (09:58)
[2019-02-08] MEDS ORDERED: PHENYLEPHRINE-NS 100 MCG/ML 10 ML SYRINGE ONE (12:25)
[2019-02-08] MEDS ORDERED: Vancomycin HCl 750 MG in Sodium Chloride 0.9% 250 ML 250 ML IVPB SCH (13:00)
[2019-02-08] MEDS ORDERED: Fentanyl 100 MCG/2 ML VIAL ONE (13:53)
--- NOTE | 2019-02-08 15:45 | PDOC.PULCN ---
Pulmonology Consult: HPI - Date of Consult Date: 02/08/19 Time: 15:00 - Consult Details Reason for Consult: Severe sepsis, IMCU admit Requesting Physician: Dr. Reyna - History of Present Illness HPI: BRITTNI VILLEGAS is a 78 year-old M who presented to the ER with a cc of abdominal pain. The majority of this H&P was gathered from chart review and nursing as the pt is not mentally capable of describing his course of illness. At the time of evaluation in the ER, he reported associated nausea and vomiting with is left sided abdominal pain. The timeline for these symptoms is approximately 3 days. In the ER, he underwent a CT scan showing a 4 mm and 5 mm stone in the left ureters with evidence of hydronephrosis on the left. He underwent a cystoscopy with left ureteral stent placement. At the time of my evaluation, the pt would answer simple yes or no questions. He complained on burning with urination but did not speak as though he knew where he was. His nurse reports this level of mentation is an improvement over where he started. Pulmonology Consult: ROS - Review of Systems All systems: reviewed and no additional remarkable complaints except as stated Constitutional: fever, chills, weakness. negative: sweats Cardiovascular: negative: chest pain, palpitations, light headedness Respiratory: negative: cough, chest tightness, short of breath Pulmonology Consult: [facility] Source: patient, nurse, other (chart review) - Family History Pertinent family history: nephrolithiasis - Social History Smoking Status: Never smoker Alcohol Use: pt denies any use Drug Use History: pt denies any use Pulmonology Consult: Meds - Medications MAR Reviewed: Yes Medications: Current Medications Digoxin (Lanoxin) 0.25 mg SLOW IVP DAILY [facility] Last Admin: 02/08/19 09:58 Dose: Not Given Vancomycin HCl 750 mg/ Sodium (Chloride) 250 mls @ 250 mls/hr IVPB 0100,1300 [facility] Last Admin: 02/08/19 13:37 Dose: 250 mls Cefepime HCl 1 gm/ Sodium (Chloride) 100 mls @ 200 mls/hr IVPB Q12HR [facility] Last Admin: 02/08/19 08:46 Dose: 100 mls Acetaminophen 650 mg/ Device 65 mls @ 400 mls/hr IVPB 0300,0900,1500,2100 [facility] Stop: 02/09/19 03:10 Last Admin: 02/08/19 09:56 Dose: 65 mls Influenza Virus Vaccine (Fluzone High-Dose Syr) 180 mcg IM .ONCE ONE Stop: 02/08/19 21:01 Miscellaneous Medication (Pharmacy To Dose) 1 each IVPB PRN PRN PRN Reason: Pharmacy to dose Morphine Sulfate (Morphine) 2 mg SLOW IVP Q4H PRN PRN Reason: Severe Pain (7-10) Last Admin: 02/08/19 05:11 Dose: 2 mg Sodium Chloride (Flush - Normal Saline) 10 ml IVF Q12HR [facility] Last Admin: 02/08/19 08:46 Dose: 10 ml Sodium Chloride (Flush - Normal Saline) 10 ml IVF PRN PRN PRN Reason: Saline Flush Last Admin: 02/08/19 05:13 Dose: 10 ml - Allergies Allergies/Adverse Reactions: Allergies Allergy/AdvReac Type Severity Reaction Status Date / Time ibuprofen [From Motrin] Allergy Verified 01/30/19 15:13 Pulmonology Consult: PE - Physical Exam Deviation from normal: Appears confused in mild distress Deviation from normal: Dry mm Neck: no JVD Cardiovascular: RRR, no significant murmur Respiratory: clear to auscultation anteriorly, clear to auscultation bilaterally Gastrointestinal: soft, non-tender, no distention, positive bowel sounds Musculoskeletal: pulses present, edema present Neurological: moves all 4 limbs Deviation from normal: Confused, minimal interaction Skin: cap refill <2 seconds Pulmonology Consult: Results - Labs Result Diagrams: 02/09/19 05:55 02/09/19 05:55 - ABG Interpretation Attestation: I reviewed and interpreted this ABG. ABG Results: ABG pH 7.39 (7.35-7.45) 02/08/19 08:05 ABG pCO2 50.7 mmHg (35.0-45.0) H 02/08/19 08:05 ABG O2 Sat Calc/Tae 90.0 % (94.0-98.0) L 02/08/19 08:05 ABG Base Excess 3.8 mEq/L (-2.0 to +3.0) H 02/08/19 08:05 Interpretation: other (Chronic hypoxic hypercapnic respiratory failure) - Radiology Interpretation CT scan - abdomen Status: report reviewed by me (Left hydroureteronephrosis due to two adjacent distal left ureteral calculi measuring approximately 5-6mm and 4mm) Pulmonology Consult: A/P - Time Time: 50% of the time was spent in coordination of care (as documented) at patient's floor/unit and/or counseling patient. Time with Patient: greater than 70 minutes - Plan Plan: Severe sepsis 2/2 infection -Continue cefipime -Vancomycin stopped, no further need -continue maintenance fluids until pt can take PO Obstructing Nephrolithiasis with signs of hydronephrosis -S/P ureteral stent -Urology consulted -Clots and brittney hematuria, repeating cbc Chronic hypoxic hypercapnic respiratory failure -Plan to have pt on CPAP/BiPap at night Atrial fibrillation -Continue home meds COPD -Continue home meds, Baseline 2-3 L of oxygen at home HFrEF with echo in 02/2018 -EF 30-35% -BNP 1196 -Monitor for fluid status Darrian Feldman DO PGY-2 Addendum - Attending - Attending Attestation Date/Time: 02/08/19 1700 I personally evaluated the patient and discussed the management with Dr. Mcneal. I agree with the History, Examination, Assessment and Plan documented above with any addition or exceptions noted below. 70 minutes have been devoted to this patient in various activities. I personally reviewed all imaging studies and laboratory data noted within this document. For fifty percent of this time, I was interacting with the patient at the bedside or coordinating care with the care team. For the remainder of the time I was immediately available to the patient in the hospital unit.
[2019-02-08 16:45] LABS: Hemoglobin 10.5 g/dL (14.0-18.0); Mean Corpuscular HGB CONC 30.3 g/dL (32.0-36.0); Mean Corpuscular Hemoglobin 28.6 pg (27.0-31.0); Mean Corpuscular Volume 94.6 fL (78.0-98.0); Mean Platelet Volume 8.9 fL (7.4-10.4); Platelet Count 153 thou/uL (130-400); RBC Distribution Width 14.8 % (11.5-14.5); Red Blood Cell (RBC) Count 3.68 mill/uL (4.70-6.10); White Blood Cell (WBC) Count 19.4 thou/uL (4.8-10.8)
[2019-02-08] MEDS ORDERED: FLU VACC TS2019-20(65YR UP)/PF 180 MCG/0.5 ML SYRINGE IM ONE (21:00)
[2019-02-08 22:20] LABS: Hemoglobin 10.4 g/dL (14.0-18.0); Mean Corpuscular HGB CONC 29.9 g/dL (32.0-36.0); Mean Corpuscular Hemoglobin 28.2 pg (27.0-31.0); Mean Corpuscular Volume 94.6 fL (78.0-98.0); Mean Platelet Volume 9.3 fL (7.4-10.4); Platelet Count 152 thou/uL (130-400); RBC Distribution Width 14.9 % (11.5-14.5); Red Blood Cell (RBC) Count 3.69 mill/uL (4.70-6.10); White Blood Cell (WBC) Count 16.7 thou/uL (4.8-10.8)
[2019-02-09] MEDS: Acetaminophen 650 MG in Premix Bag 1 BAG IVPB SCH (02:37)
[2019-02-09] MEDS: Morphine 2 MG/ML SYRINGE SLOW IVP PRN (06:05)
[2019-02-09 06:06] LABS: #Basophils 0.1 thou/uL (0.0-0.2); #Lymphocytes 0.8 thou/uL (1.20-3.40); #Neutrophils 11.5 thou/uL (1.40-6.50); %Basophils 0.4 % (0.0-1.0); %Eosinophils 0.3 % (0.0-10.0); %Monocytes 7.6 % (0.0-10.0); %Neutrophils 85.7 % (42.0-75.0); Hemoglobin 10.2 g/dL (14.0-18.0); Mean Corpuscular HGB CONC 30.8 g/dL (32.0-36.0); Mean Corpuscular Hemoglobin 28.8 pg (27.0-31.0); Mean Corpuscular Volume 93.5 fL (78.0-98.0); Mean Platelet Volume 9.1 fL (7.4-10.4); Platelet Count 137 thou/uL (130-400); RBC Distribution Width 14.7 % (11.5-14.5); Red Blood Cell (RBC) Count 3.53 mill/uL (4.70-6.10); White Blood Cell (WBC) Count 13.4 thou/uL (4.8-10.8)
[2019-02-09 06:24] LABS: Phosphorus 3.4 mg/dL (2.3-4.7)
[2019-02-09 06:25] LABS: Anion Gap 9 mmol/L (10-20); BUN (Urea Nitrogen) 38 mg/dL (8.4-25.7); Calc. Creatinine Clearance 48 mL/min (70-130); Calcium 9.8 mg/dL (7.8-10.44); Carbon Dioxide 32 mmol/L (23-31); Chloride 104 mmol/L (98-107); Estimated GFR-MDRD 57; Glucose 69 mg/dL (83-110); Magnesium 2.1 mg/dL (1.6-2.6); Sodium 141 mmol/L (136-145)
--- NOTE | 2019-02-09 08:16 | CON ---
DATE OF CONSULTATION: 02/08/2019 HISTORY OF PRESENT ILLNESS: I am seeing Mr. Rosa at our [facility] Telemetry Floor as an electrophysiology nursing consultant. His problems are; 1. Paroxysmal atrial arrhythmias. a. Paroxysmal atrial fibrillation with RVR, status post CTI ablation in February 2016. b. Adequate suppression with Tikosyn. 2. Nonsustained ventricular tachycardia. 3. Chronic systolic congestive heart failure with nonischemic cardiomyopathy. a. Reduced LVEF of 30% to 35% with an echo in February 2018. 4. Status post dual-chamber ICD implantation on 02/22/2018 with Medtronic dual-chamber device. 5. Advanced pulmonary disease with kyphoscoliosis and COPD with frequent exacerbations. 6. Ureteral stones with urosepsis. ALLERGIES: IBUPROFEN. MEDICATIONS: At home included; 1. Omeprazole. 2. Potassium. 3. Polyethylene glycol. 4. Vitamin D3. 5. Tikosyn 250 mcg twice a day. 6. Lipitor. 7. Breo Ellipta. 8. Lisinopril. 9. Prednisone. 10. Aspirin. 11. Multivitamins. 12. Tramadol. 13. Loratadine. 14. Terbinafine. 15. Gabapentin. 16. Carvedilol. 17. Digoxin 0.25 mg daily. 18. Fluticasone. 19. Furosemide. 20. Apixaban 2.5 mg twice a day. 21. Ferrous sulfate. 22. Doxycycline. 23. Calcium carbonate. 24. Ipratropium. 25. Zinc sulfate. 26. Ascorbic acid. 27. Diclofenac. 28. Albuterol sulfate. SUBJECTIVE: Mr. Rosa is a poor historian. Currently, recovering from his sepsis. He was admitted overnight with significant abdominal and flank pain, nausea, and vomiting, was noted to be uroseptic, and hydronephrosis was noted. Urology was consulted. IV antibiotics were started, and ureteral stents were planned. While in the hospital, he developed recurrent episodes of atrial fibrillation and also the Tikosyn medication was on hold. On IV digoxin, now heart rates are much better controlled. PAST MEDICAL HISTORY: As above with history of CVA. PAST SURGICAL HISTORY: Significant for; 1. Hernia repair. 2. Right forearm surgery. 3. ICD and PICC line placements. SOCIAL HISTORY: The patient denies smoking, EtOH, or drug abuse. FAMILY HISTORY: Noncontributory. OBJECTIVE DATA: VITAL SIGNS: Blood pressure 92/48, heart rate is 97, respirations 22, temperature is 102.0 Fahrenheit this morning. GENERAL: He is an elderly, somnolent, but arousable man, in no apparent distress. NECK: Supple. Jugular veins not distended. CHEST: Coarse without crackles. HEART: Irregular. S1, S2 are variable. No murmur or gallop. ABDOMEN: Benign. Bowel sounds positive. EXTREMITIES: Lower extremities without edema, clubbing, or cyanosis. DATABASE: EKG was reviewed, revealing strips of atrial fibrillation with initial rhythm seems to be sinus rhythm. Also, are noted. LABORATORY DATA: White cell count is 16.2, platelet count is 165, hemoglobin is 12.1. PH 7.39, pO2 of 57, pCO2 of 50.7. Sodium 137, potassium 4.3, BUN is 29, creatinine is 1.04. BNP is 1196. Digoxin level 0.56. The interrogation of the ICD reveal a dual-chamber Medtronic Evera XT ICD, battery longevity 9 years. Lead parameters are adequate with sensing 0.9 mV in atrium and 3.1 mV in the right ventricle. Capture thresholds are reasonable at 0.4 and 1.75 V at 0.4 milliseconds respectively. The medical tachycardia episodes are without recurrence since last March, atrial fibrillation also well suppressed up until current admission since end of August. ASSESSMENT AND PLAN: Mr. Rosa is a pleasant 78-year-old man with prior history of advanced COPD; kyphoscoliosis; cardiomyopathy, nonischemic; recurrent atrial arrhythmias; who presented with urosepsis, which is likely obstructive. He underwent a cystoscopy and left ureteral stent placement. He also had been sent for cultures and antibiotics are planned. Currently, on cefepime. His urosepsis is improving. While in severely septic condition, his atrial fibrillation recurred especially hence his antiarrhythmic agent Tikosyn was on hold. On the other hand, with digoxin and fluid repletion and temperature control, his heart rates become more normalized. Blood pressure is still borderline. My plan would be; 1. At this point, I would continue rate controlling of the atrial fibrillation. Hopefully with improving infectious status, blood pressure will be more tolerable and amenable for additional rate-controlling agents if becomes necessary. In the meantime, continue digoxin. 2. Once kidney status is cleared and his renal function returned back to normal, he may be able to restart his usual dose of Tikosyn and monitor for QT prolongation and assess for any interactions for any new medical agents especially antibiotics, which could cause for QT prolongation. 3. Chronic anticoagulation with apixaban, currently on hold. Resume anticoagulation once medically feasible from standpoint. 4. ICD function dual-chamber adequate. No new issues. Continue monitoring. We will follow with you. Thank you again for allowing us to participate in the care of this patient. Job ID: [id number]
--- NOTE | 2019-02-09 08:20 | PRG ---
DATE OF SERVICE: 02/09/2019 SUBJECTIVE: The patient is seen and examined at the bedside. The case was discussed with Dr. Medrano, iuss analyst, who knows the patient for long time. He improved overnight. His respiratory rate slowed down and his heart rate slowed down too. He is still in atrial fibrillation. OBJECTIVE: VITAL SIGNS: Blood pressure is 92/43, pulse is 78, respiratory rate is 17, O2 saturation is 100%. HEENT: Sclerae are nonicteric. Oral mucosa is somewhat dry. NECK: Supple. LUNGS: Breath sounds diminished at both bases. CHEST: Chest cage is shape of barrel. Bilateral rales present at both bases. HEART: S1 and S2. Irregularly irregular. No S3. No S4. ABDOMEN: Tender in the right epigastric area. Mild guarding. EXTREMITIES: No clubbing, cyanosis, or edema. NEUROLOGICAL: He follows my commands. He moves his all 4 extremities. LABORATORY DATA: Labs showed white count of 13.4, hemoglobin of 10.2, hematocrit of 33.0, platelet count is 137,000. Sodium of 141, potassium of 4.0, chloride of 104, CO2 of 32, BUN of 38, creatinine of 1.24. The rest of chemistry is within normal limits. Microbiology, current blood cultures 2/2 Proteus species. IMPRESSION: 1. Sepsis with positive 2/2 blood cultures for Proteus, most likely urinary tract source. 2. Left ureteral stone status post stenting. 3. Left hydronephrosis. 4. Chronic respiratory failure, on home oxygen. 5. Atrial fibrillation with rapid ventricular response. 6. Scoliosis. 7. Chronic obstructive pulmonary disease. 8. History of cardiac arrhythmias. 9. Automatic implantable cardioverter defibrillator. 10. Abdominal pain of unclear etiology at this point. PLAN: Get ultrasound of the abdomen. Check lipase. Check liver function tests. Continue cefepime. Awaiting for sensitivity. We will continue his IV digoxin daily dose to control his AFib with RVR. We are going to move him to Intensive Care Unit after the discussion was done with Dr. Medrano. Job ID: [id number]
--- NOTE | 2019-02-09 08:39 | PDOC.CPN ---
- Subjective Date: 02/09/19 Time: 11:30 Interval history: EP PROGRESS NOTE: 02/09/19 Seen as follow up for MAT and arrhytmia management. In ICU now. feels better than yesterday. Breathing is easier and HR is now controlled. Fever has broke - Review of Systems Respiratory: reports: shortness of breath Cardiovascular: denies: chest pain, palpitation Gastrointestinal: reports: abd pain Musculoskeletal: reports: stiffness, arthritis/arthralgias Neurological: denies: syncope - Objective Allergies/Adverse Reactions: Allergies Allergy/AdvReac Type Severity Reaction Status Date / Time ibuprofen [From Motrin] Allergy Verified 01/30/19 15:13 Visit Medications: Current Medications Albuterol/Ipratropium (Duoneb) 3 ml NEB [id number] [facility] Digoxin (Lanoxin) 0.25 mg SLOW IVP DAILY [facility] Last Admin: 02/08/19 09:58 Dose: Not Given Cefepime HCl 1 gm/ Sodium (Chloride) 100 mls @ 200 mls/hr IVPB Q12HR [facility] Last Admin: 02/08/19 20:36 Dose: 100 mls Methylprednisolone Sodium Succinate (Solu-Medrol) 40 mg IVP Q6HR [facility] Miscellaneous Medication (Pharmacy To Dose) 1 each IVPB PRN PRN PRN Reason: Pharmacy to dose Morphine Sulfate (Morphine) 2 mg SLOW IVP Q4H PRN PRN Reason: Severe Pain (7-10) Last Admin: 02/09/19 06:05 Dose: 2 mg Prednisone (Prednisone) 10 mg PO QAM[facility] Sodium Chloride (Flush - Normal Saline) 10 ml IVF Q12HR [facility] Last Admin: 02/08/19 20:37 Dose: 10 ml Sodium Chloride (Flush - Normal Saline) 10 ml IVF PRN PRN PRN Reason: Saline Flush Last Admin: 02/08/19 05:13 Dose: 10 ml Vital Signs & Weight: Vital Signs Temp Pulse Resp Pulse Ox 02/09/19 07:57 87 02/09/19 07:44 97.7 F 02/09/19 07:41 95 02/09/19 07:35 87 24 H 98 02/09/19 03:54 97.7 F 02/09/19 02:18 95 02/09/19 02:15 93 L 02/09/19 00:00 75 02/08/19 23:38 98.8 F Weight 144 lb 11.2 oz - Physical Exam General: alert & oriented x3 Neck: supple neck Cardiac: regular rate, irregularly regular Lungs: decreased breath sounds Neuro: grossly intact - Labs Result Diagrams: 02/09/19 05:55 02/09/19 05:55 - Assessment/Plan Assessment/Plan: Mr. Rosa is a pleasant 78-year-old man with prior history of advanced COPD; kyphoscoliosis; cardiomyopathy, nonischemic; recurrent atrial arrhythmias; who presented with urosepsis, which is likely obstructive. He underwent a cystoscopy and left ureteral stent placement. He also had been sent for cultures and antibiotics are planned. Currently, on cefepime. His urosepsis is improving. While in severely septic condition, his atrial fibrillation recurred especially hence his antiarrhythmic agent Tikosyn was on hold. On the other hand, with digoxin and fluid repletion and temperature control, his heart rates became more normalized. Blood pressures remain borderline. My plan would be; 1. MAT, rate controlled - Digoxin 125mcg daily - resume tikosyn this evening - serial EKGs ordered to assess baseline QTc and monitor for prolongation. He has tolerated this dose well in the past but wish to monitor given his renal involvement. - avoid QTc prolonging anbx and medications. 3rd gen cephalosporin/cefepime- ok. 2. Chronic anticoagulation with apixaban, - currently on hold d/t mild hematuria - Resume anticoagulation YAHIR but need urology to approve first 4. ICD function dual-chamber adequate. -No new issues. Continue monitoring. We will follow on Tuesday.
[2019-02-09 09:05] LABS: ALT (SGPT) 22 U/L (8-55); AST (SGOT) 40 U/L (5-34); Albumin 2.5 g/dL (3.4-4.8); Alkaline Phosphatase 91 U/L (40-110); Bilirubin, Direct 0.2 mg/dL (0.1-0.3); Bilirubin, Total 0.4 mg/dL (0.2-1.2); Protein, Total 5.3 g/dL (5.8-8.1)
--- NOTE | 2019-02-09 09:42 | PRG ---
DATE OF SERVICE: 02/09/2019 SUBJECTIVE: Events have been reviewed. He is in mild respiratory distress. I have asked the nurse to put his BiPAP back on and move him to the ICU. The nurses tell me he looks better than he looked yesterday. He denies feeling any better. OBJECTIVE: VITAL SIGNS: He is afebrile. Heart rate 87, respiratory rate 20, oximetry is 95% on the cannula. LUNGS: Remarkable for faint wheezes. HEART: Regular rhythm. ABDOMEN: Soft. EXTREMITIES: Without edema. ASSESSMENT AND PLAN: We will increase the frequency of his nebulizer treatments. He does have a history of asthma. We will place him back on BiPAP. We will add in steroids. Proteus is growing from his blood. His vancomycin has been discontinued. He has a marginal functional status because of his kyphoscoliosis. He has marginal reserve and probably it would be better to observe him in the Critical Care Unit. He is reasonably functional when he got out of the hospital. Critical care time 30 minutes. Job ID: [id number]
[2019-02-09] MEDS: predniSONE 20 MG TAB PO SCH (09:48)
[2019-02-09] MEDS: Cefepime 1 GM in Sodium Chloride 0.9% 100 ML IVPB SCH ×2 (09:53→20:58)
[2019-02-09] MEDS: Digoxin 0.5 MG/2 ML AMP SLOW IVP SCH (09:54)
--- NOTE | 2019-02-09 09:59 | ULT ---
Sonogram right upper quadrant HISTORY: Right upper quadrant pain. FINDINGS: Gallbladder is distended up to 11.0 cm and contains numerous shadowing echogenic foci in th e dependent portion. No gallbladder wall thickening. Patient was reportedly not tender over the gallbladder fossa at the time of the exam. Common duct is 0.6 cm. Liver unremarkable without focal mass or intrahepatic biliary dilatation. No f ree fluid. IMPRESSION: Cholelithiasis. Gallbladder is distended, although patient was reportedly not tender at t he gallbladder fossa at the time of the exam. Recent CT showed the gallbladder to not be completely distended. Gallbladder is therefore not likely to be obstructed.
[2019-02-09] MEDS ORDERED: Ondansetron PF 4 MG/2 ML Vial ONE (11:19)
[2019-02-09] MEDS ORDERED: ALPRAZolam 0.25 MG TAB ONE (11:20)
[2019-02-09] MEDS: methylPREDNISolone Sod Succ/PF 125 MG/2 ML VIAL IVP SCH ×2 (11:24→19:13)
[2019-02-09] MEDS ORDERED: methylPREDNISolone Sod Succ 40 MG VIAL IVP SCH (12:00)
[2019-02-09] MEDS ORDERED: ALPRAZolam 0.25 MG TAB PO SCH (13:15)
[2019-02-09] MEDS ORDERED: Dofetilide 0.25 MG CAP PO SCH (18:00)
[2019-02-09] MEDS: Dofetilide 0.125 MG CAP PO SCH (19:12)
[2019-02-10] MEDS: methylPREDNISolone Sod Succ/PF 125 MG/2 ML VIAL IVP SCH ×4 (01:50→18:09)
[2019-02-10] MEDS: Morphine 2 MG/ML SYRINGE SLOW IVP PRN (03:11)
[2019-02-10] MEDS: Dofetilide 0.125 MG CAP PO SCH ×2 (05:47→18:09)
[2019-02-10 06:57] LABS: Phosphorus 2.8 mg/dL (2.3-4.7)
[2019-02-10 06:58] LABS: Anion Gap 13 mmol/L (10-20); BUN (Urea Nitrogen) 34 mg/dL (8.4-25.7); Calc. Creatinine Clearance 65 mL/min (70-130); Calcium 10.1 mg/dL (7.8-10.44); Carbon Dioxide 25 mmol/L (23-31); Chloride 106 mmol/L (98-107); Estimated GFR-MDRD 82; Glucose 137 mg/dL (83-110); Magnesium 2.3 mg/dL (1.6-2.6); Potassium 4.2 mmol/L (3.5-5.1); Sodium 140 mmol/L (136-145)
[2019-02-10] MEDS: Digoxin 0.5 MG/2 ML AMP SLOW IVP SCH (08:51)
[2019-02-10] MEDS: Cefepime 1 GM in Sodium Chloride 0.9% 100 ML IVPB SCH ×2 (08:52→20:00)
--- NOTE | 2019-02-10 08:53 | PRG ---
DATE OF SERVICE: 02/10/2019 SUBJECTIVE: Jordy Rosa is 78-year-old gentleman who this morning, is on his BiPAP, having some difficulty breathing. OBJECTIVE: VITAL SIGNS: Saturations are 94%, pulse 105, blood pressure 112/56, respiratory rate 17. GENERAL: Awake, responsive. CHEST: Decreased breath sounds. No wheezing. CARDIAC: Normal S1, S2. No gallops. ABDOMEN: No masses. LABORATORY DATA: His blood cultures growing Proteus, which is sensitive to the Maxipime. Otherwise, renal function is normal. ASSESSMENT AND PLAN: Proteus sepsis, urinary tract infection, ureteral stent, end-stage chronic obstructive pulmonary disease, severe kyphoscoliosis. We will continue neb treatments, steroids, supportive care. We will follow. Job ID: [id number]
--- NOTE | 2019-02-10 10:27 | PRG ---
DATE OF SERVICE: 02/10/[address] Tyler Desai, primary urologist. SUBJECTIVE: The patient is currently on CPAP, being transitioned from ICU to IMCU. OBJECTIVE: VITAL SIGNS: Stable. He has been afebrile for more than 48 hours. T-current is 97. I's and O's 2064 in and 1675 out. ABDOMEN: Soft. No rigidity. No rebound. : Bernabe catheter draining concentrated yellow tea-colored urine. LABORATORY DATA: Culture reviewed demonstrating Proteus with resistance; however, sensitive to current regimen of cefepime. Creatinine 0.9. White count has decreased from 16 to 13. Renal function stable. IMPRESSION AND PLAN: Mr. Rosa is a 78-year-old male with history of congestive heart failure, urinary retention, presented with obstructing stone with urinary tract infection component, status post stent. Postoperative day #2. Continue current regimen of antibiotic therapy and indwelling Bernabe catheter. Elective ureteroscopy and laser lithotripsy by Dr. Desai at a later date. Job ID: [id number] [facility]
[2019-02-10] MEDS: predniSONE 20 MG TAB PO SCH (10:41)
--- NOTE | 2019-02-10 14:52 | PRG ---
DATE OF SERVICE: 02/10/2019 SUBJECTIVE: The patient is complaining about some hunger. He would like to eat something. He feels better. He sits on the edge of the bed as we speak. His respirations are improved. OBJECTIVE: VITAL SIGNS: Blood pressure is 145/82, pulse is 111, respiratory rate is 21, and he is on 3 L by nasal cannula. HEENT: His sclerae nonicteric. Conjunctivae palish. Oral mucosa is slightly dry. NECK: Supple. JVD is positive. LUNGS: Breath sounds diminished at both bases with few crackles bilaterally at both bases. CHEST: Chest is barrel shaped. He has scoliosis, severe. ABDOMEN: Abdominal examination shows a mildly distended abdomen, but not tender to palpation. Bowel sounds are present. EXTREMITIES: No plus peripheral edema. NEUROLOGICAL: He is following my commands. He is able to move his all 4 extremities. LABORATORY DATA: Labs showed normal electrolytes; BUN of 34, creatinine 0.9, glucose 137, phosphorus 2.8, and magnesium 2.3. Ultrasound of the abdomen done yesterday showed some distended gallbladder, but the pain he had in his abdomen is resolved. Also, ultrasound showed some cholelithiasis, but gallbladder is not obstructed according to the radiology report. IMPRESSION: 1. Sepsis with positive 2/2 blood cultures for Proteus, sensitive to cefepime. We will continue that antibiotic. 2. Left ureteral stone, status post stenting. Plan is to do lithotripsy in the future. 3. Left hydronephrosis, relieved with stenting. 4. Chronic respiratory failure, on home oxygen, improved. 5. Atrial fibrillation with RVR, improved at this point at MAT. 6. Scoliosis. 7. Chronic obstructive pulmonary disease. 8. History of cardiac arrhythmia. 9. Automatic implantable cardioverter defibrillator. 10. Abdominal pain, resolved, but could be related to his cholelithiasis. At this point, the patient is not complaining about the pain. PLAN: Plan is to continue his cefepime. Start him on Coreg. Start him on low-salt diet. Continue his digoxin daily. He was restarted on Tikosyn by Dr. Guo. We will continue his IV Solu-Medrol for COPD and if he is able to tolerate his Coreg, he will need to get his lisinopril and small dose of Lasix restarted in the next probably 24 hours. His blood thinners on hold, aspirin and apixaban, since he still has some hematuria. We will continue his DuoNeb. Job ID: [id number]
--- NOTE | 2019-02-10 18:04 | PRG ---
DATE OF SERVICE: 02/09/2019 SUBJECTIVE: The patient is currently sleeping. I did not wake him out of any necessity to ask him any significant questions. The nursing staff has reported that he has been comfortable. He has not been reporting any significant pain. He was transferred to the ICU critical care portion due to abdominal pain earlier, but since receiving some pain medication, has been resting comfortably. He has not had any fevers. He has been voiding in 30-minute increments, a small amounts of urine with a PVR of approximately 260 mL. OBJECTIVE: VITAL SIGNS: T-max is 101, current temperature 97.7, pulse 87, respirations 14, heart rate 100, blood pressure 106/50, and saturation 100% on 2 L nasal cannula. GENERAL: Sleeping appears significantly contorted, secondary to scoliosis. CARDIOVASCULAR: Irregularly irregular rhythm, symmetric pulses. CHEST: Continued increased work of breathing, which appears to be baseline for the patient. ABDOMEN: Soft, nontender, and nondistended. : There is some bloody urine in the patient's depends. EXTREMITIES: Atrophic, but no edema. LABORATORY EVALUATION: The full set of labs are in the [facility] system, which I have reviewed. Of note, white count is 13.4 with a hemoglobin of 10.2. Creatinine is 1.24. Blood cultures are growing Proteus mirabilis x2. Urine culture is also growing Proteus. ASSESSMENT AND PLAN: A 78-year-old white male with multiple comorbidities including chronic obstructive pulmonary disease, atrial fibrillation, congestive heart failure, history of stroke, history of polio, severe scoliosis with ureteral stone, status post ureteral stent placement and urosepsis. The patient is growing Proteus in the blood. The patient's abdominal pain may be secondary to ureteral stent. I do agree with pain medication and oxybutynin if needed for pain control. I would also recommend placement of a Bernabe catheter for maximal drainage given the patient's Proteus in urine and blood stream and inability to empty his bladder adequately. For now, I would keep the Bernabe catheter and recommend an 18- to 20-Mohawk Bernabe catheter for allow passage of bloody urine. We will discuss long-term plans with the patient's voiding after he has recovered from this infection. The patient's hospitalist has recommended he be in the ICU, which I think is fine given his comorbidities. Dr. Ravanbakhsh will be covering for me over the weekend. We will continue to monitor. Definitive stone management will be deferred until the patient has received cardiac clearance and has been treated for at least 2 weeks for his urosepsis. Job ID: [id number]
[2019-02-10] MEDS: Carvedilol 3.125 MG TAB PO SCH (20:00)
[2019-02-11] MEDS: methylPREDNISolone Sod Succ/PF 125 MG/2 ML VIAL IVP SCH (00:46)
[2019-02-11] MEDS: Morphine 2 MG/ML SYRINGE SLOW IVP PRN ×2 (02:53→17:57)
[2019-02-11 04:54] LABS: Anion Gap 12 mmol/L (10-20); BUN (Urea Nitrogen) 40 mg/dL (8.4-25.7); Calc. Creatinine Clearance 66 mL/min (70-130); Calcium 10.1 mg/dL (7.8-10.44); Carbon Dioxide 27 mmol/L (23-31); Chloride 106 mmol/L (98-107); Estimated GFR-MDRD 84; Glucose 143 mg/dL (83-110); Magnesium 2.1 mg/dL (1.6-2.6); Potassium 4.5 mmol/L (3.5-5.1); Sodium 140 mmol/L (136-145)
[2019-02-11] MEDS: Dofetilide 0.125 MG CAP PO SCH ×2 (05:19→17:56)
[2019-02-11] MEDS: methylPREDNISolone Sod Succ 40 MG VIAL IVP SCH ×4 (05:19→23:00)
[2019-02-11] MEDS: Bacteriostatic Water 30 ML VIAL FS PRN ×2 (05:19→11:29)
[2019-02-11] MEDS: Cefepime 1 GM in Sodium Chloride 0.9% 100 ML IVPB SCH (08:30)
[2019-02-11] MEDS: Carvedilol 3.125 MG TAB PO SCH ×2 (08:30→20:15)
[2019-02-11] MEDS: Digoxin 0.5 MG/2 ML AMP SLOW IVP SCH (08:32)
--- NOTE | 2019-02-11 10:43 | PRG ---
DATE OF SERVICE: 02/11/2019 SUBJECTIVE: Jordy Rosa, this morning, is doing better. He is sitting on the side of bed without his BiPAP. OBJECTIVE: VITAL SIGNS: , saturations 100% on room air, blood pressure 120/60, respirations 18. CHEST: Decreased breath sounds. No wheezing. CARDIAC: Normal S1 and S2. ABDOMEN: No masses. ASSESSMENT AND PLAN: Urinary tract infection, respiratory failure, severe kyphoscoliosis, severe deconditioning. Antibiotics as per Urology. Supportive care. We will follow. Job ID: [id number]
[2019-02-11] MEDS: cefTRIAXone\\ROCEPHIN 2 GM in Sodium Chloride 0.9% 100 ML IVPB SCH (11:28)
--- NOTE | 2019-02-11 12:04 | PRG ---
DATE OF SERVICE: 02/11/2019 SUBJECTIVE: The patient without complaints, has been transitioned to [facility], up in chair. OBJECTIVE: VITAL SIGNS: Stable, temperature 99.6, pulse 77, respirations 26, afebrile for more than 48 hours, Is and Os 1670 in and 1210 out. No new CBC. Creatinine today 0.8. Urine culture Proteus on Rocephin. Abdomen: Soft nontender nondistended no significant tenderness no CVA tenderness IMPRESSION AND PLAN: A 78-year-old male with history of congestive heart failure, chronic obstructive pulmonary disease, urinary retention, presented with obstructing ureteral stone, postoperative day #3, status post stent. Continue Rocephin. Targeted antibiotic therapy based on urine culture. Dr. Desai will resume his care tomorrow. Job ID: [id number] [facility]ITALViole[facility]
--- NOTE | 2019-02-11 14:18 | PDOC.HOSPP ---
- Subjective Encounter Date: 02/11/19 Encounter Time: 14:16 Subjective: 78 y/o male with severe kyphoscoliosis, NICM s/p AICD, chronic respiratory failure from COPd on home oxygen admitted with left flank pain associated with nausea and vomiting. S/p cystoscopy with stent placement on the left. Now has a sitter for some confusion and pulling out things.No new problem. - Objective Vital Signs & Weight: Vital Signs (12 hours) Temp Pulse Resp Pulse Ox 02/11/19 11:13 99.6 F 02/11/19 10:36 77 26 H 99 02/11/19 08:32 83 02/11/19 07:57 97 02/11/19 07:50 98.8 F 02/11/19 07:37 83 18 100 02/11/19 03:50 98.8 F Weight Weight 144 lb 11.2 oz Most Recent Monitor Data Heart Rate from ECG 78 NIBP 122/53 NIBP BP-Mean 76 Respiration from ECG 28 SpO2 98 I&O: 02/10/19 02/11/19 02/12/19 06:59 06:59 06:59 Intake Total 2064 1670 Output Total 1675 1210 Balance 389 460 Result Diagrams: 02/09/19 05:55 02/11/19 03:53 Hospitalist ROS - Medication Medications: Active Medications Generic Name Dose Route Start Last Admin Trade Name Luis Alfredoq PRN Reason Stop Dose Admin Albuterol/Ipratropium 3 ml 02/09/19 10:30 02/11/19 10:36 Duoneb NEB 3 ml [id number] TAHIRA Administration Carvedilol 3.125 mg 02/10/19 21:00 02/11/19 08:30 Coreg PO 3.125 mg BID TAHIRA Administration Cholecalciferol 5,000 units 02/11/19 09:00 02/11/19 08:31 Vitamin D3 PO 5,000 units DAILY TAHIRA Administration Digoxin 0.125 mg 02/10/19 09:00 02/11/19 08:32 Lanoxin SLOW IVP 0.125 mg DAILY TAHIRA Administration Dofetilide 0.25 mg 02/09/19 18:00 02/11/19 05:19 Tikosyn PO 0.25 mg 0600,1800 TAHIRA Administration Ceftriaxone Sodium 2 gm/ 100 mls @ 200 mls/hr 02/11/19 11:00 02/11/19 11:28 Sodium Chloride IVPB 100 mls Q24HR TAHIRA Administration Methylprednisolone Sodium Succinate 40 mg 02/11/19 06:00 02/11/19 11:29 Solu-Medrol IVP 40 mg Q6HR TAHIRA Administration Morphine Sulfate 2 mg 02/08/19 01:43 02/11/19 02:53 Morphine SLOW IVP 2 mg Q4H PRN Administration Severe Pain (7-10) Sodium Chloride 10 ml 02/08/19 09:00 02/11/19 08:31 Flush - Normal Saline IVF 10 ml Q12HR TAHIRA Administration Sodium Chloride 10 ml 02/08/19 04:05 02/08/19 05:13 Flush - Normal Saline IVF 10 ml PRN PRN Administration Saline Flush Sterile Water 1 ml 02/11/19 04:38 02/11/19 11:29 Bacteriostatic Water FS 1 ml PRN PRN Administration RECONSTITUTION - Exam General Appearance: awake alert Eye: anicteric sclera ENT: normocephalic atraumatic, moist mucosa Heart: RRR Respiratory - other findings: fair air entry bilaterally with transmitted sound , increased work of breath Gastrointestinal: soft, non-tender, non-distended, normal bowel sounds Extremities: 1+ LE edema Neurological: cranial nerve grossly intact Psychiatric: A&O x 3 Hosp A/P (1) Sepsis Code(s): A41.9 - SEPSIS, UNSPECIFIED ORGANISM Status: Acute (2) Proteus infection Code(s): A49.8 - OTHER BACTERIAL INFECTIONS OF UNSPECIFIED SITE Status: Acute (3) Bacteremia Code(s): R78.81 - BACTEREMIA Status: Acute (4) UTI (urinary tract infection) Status: Acute (5) Acute metabolic encephalopathy Code(s): G93.41 - METABOLIC ENCEPHALOPATHY Status: Acute (6) Nephrolithiasis Status: Acute (7) Hydronephrosis of left kidney Code(s): N13.30 - UNSPECIFIED HYDRONEPHROSIS Status: Acute (8) PAF (paroxysmal atrial fibrillation) Code(s): I48.0 - PAROXYSMAL ATRIAL FIBRILLATION Status: Acute (9) Cholelithiases Code(s): K80.20 - CALCULUS OF GALLBLADDER W/O CHOLECYSTITIS W/O OBSTRUCTION Status: Acute (10) NICM (nonischemic cardiomyopathy) Code(s): I42.8 - OTHER CARDIOMYOPATHIES Status: Acute (11) Urinary retention Code(s): R33.9 - RETENTION OF URINE, UNSPECIFIED Status: Acute (12) COPD (chronic obstructive pulmonary disease) Status: Chronic Qualifiers: COPD type: COPD with acute exacerbation Qualified Code(s): J44.1 - Chronic obstructive pulmonary disease with (acute) exacerbation (13) Chronic respiratory failure with hypoxia and hypercapnia Code(s): J96.11 - CHRONIC RESPIRATORY FAILURE WITH HYPOXIA; J96.12 - CHRONIC RESPIRATORY FAILURE WITH HYPERCAPNIA Status: Chronic (14) Kyphoscoliosis Code(s): M41.9 - SCOLIOSIS, UNSPECIFIED Status: Chronic - Plan Continue antibiotics. Awaiting microbe susceptibility definitive stone treatment as per urology Continue other treatments. Continue close monitoring.
[2019-02-12] MEDS: Morphine 2 MG/ML SYRINGE SLOW IVP PRN (03:30)
[2019-02-12] MEDS: methylPREDNISolone Sod Succ 40 MG VIAL IVP SCH ×4 (05:47→21:33)
[2019-02-12] MEDS: Dofetilide 0.125 MG CAP PO SCH ×2 (05:47→19:39)
[2019-02-12 06:48] LABS: Anion Gap 14 mmol/L (10-20); BUN (Urea Nitrogen) 40 mg/dL (8.4-25.7); Calc. Creatinine Clearance 59 mL/min (70-130); Carbon Dioxide 26 mmol/L (23-31); Chloride 106 mmol/L (98-107); Estimated GFR-MDRD 69; Glucose 140 mg/dL (83-110); Magnesium 2.1 mg/dL (1.6-2.6); Potassium 4.7 mmol/L (3.5-5.1); Sodium 141 mmol/L (136-145)
[2019-02-12] MEDS ORDERED: Apixaban 2.5 MG TAB PO SCH (09:00)
[2019-02-12] MEDS: Carvedilol 3.125 MG TAB PO SCH ×2 (10:19→19:39)
[2019-02-12] MEDS: Digoxin 0.5 MG/2 ML AMP SLOW IVP SCH (10:19)
[2019-02-12] MEDS: cefTRIAXone\\ROCEPHIN 2 GM in Sodium Chloride 0.9% 100 ML IVPB SCH (12:41)
--- NOTE | 2019-02-12 15:18 | PDOC.HOSPP ---
- Subjective Encounter Date: 02/12/19 Encounter Time: 12:17 Subjective: 78 y/o male with severe kyphoscoliosis, NICM s/p AICD, chronic respiratory failure from COPd on home oxygen admitted with left flank pain associated with nausea and vomiting. S/p cystoscopy with stent placement on the left. More oriented and cooperative today. No new problem. - Objective Vital Signs & Weight: Vital Signs (12 hours) Temp Pulse Resp Pulse Ox 02/12/19 15:13 80 21 H 99 02/12/19 11:25 98.6 F 02/12/19 11:12 99 21 H 99 02/12/19 10: 104 H 02/12/19 08:08 104 H 27 H 02/12/19 08:00 100 02/12/19 07:16 97.8 F 02/12/19 04:00 98.6 F Weight Weight 153 lb 0.013 oz Most Recent Monitor Data Heart Rate from ECG 86 NIBP 122/59 NIBP BP-Mean 80 Respiration from ECG 26 SpO2 95 I&O: 02/11/19 02/12/19 02/13/19 06:59 06:59 06:59 Intake Total 1670 400 Output Total 1210 600 Balance 460 -200 Result Diagrams: 02/09/19 05:55 02/12/19 05:59 Hospitalist ROS - Medication Medications: Active Medications Generic Name Dose Route Start Last Admin Trade Name Freq PRN Reason Stop Dose Admin Albuterol/Ipratropium 3 ml 02/11/19 18:30 02/12/19 15:13 Duoneb NEB 3 ml [id number] TAHIRA Administration Carvedilol 3.125 mg 02/10/19 21:00 02/12/19 10:19 Coreg PO 3.125 mg BID TAHIRA Administration Cholecalciferol 5,000 units 02/11/19 09:00 02/12/19 10:19 Vitamin D3 PO 5,000 units DAILY TAHIRA Administration Digoxin 0.125 mg 02/10/19 09:00 02/12/19 10:19 Lanoxin SLOW IVP 0.125 mg DAILY TAHIRA Administration Dofetilide 0.25 mg 02/09/19 18:00 02/12/19 05:47 Tikosyn PO 0.25 mg 0600,1800 TAHIRA Administration Ceftriaxone Sodium 2 gm/ 100 mls @ 200 mls/hr 02/11/19 11:00 02/12/19 12:41 Sodium Chloride IVPB 100 mls Q24HR TAHIRA Administration Methylprednisolone Sodium Succinate 40 mg 02/11/19 06:00 02/12/19 12:41 Solu-Medrol IVP 40 mg Q6HR TAHIRA Administration Morphine Sulfate 2 mg 02/08/19 01:43 02/12/19 03:30 Morphine SLOW IVP 2 mg Q4H PRN Administration Severe Pain (7-10) Sodium Chloride 10 ml 02/08/19 09:00 02/12/19 10:21 Flush - Normal Saline IVF 10 ml Q12HR TAHIRA Administration Sodium Chloride 10 ml 02/08/19 04:05 02/08/19 05:13 Flush - Normal Saline IVF 10 ml PRN PRN Administration Saline Flush Sterile Water 1 ml 02/11/19 04:38 02/11/19 11:29 Bacteriostatic Water FS 1 ml PRN PRN Administration RECONSTITUTION - Exam General Appearance: awake alert General - other findings: chronically ill looking ENT: normocephalic atraumatic Heart: RRR Respiratory - other findings: fair air entry with transmitted sound Gastrointestinal: soft, non-tender, non-distended, normal bowel sounds Gastrointestinal - other findings: hammond catheter in place Extremities - other findings: mild to moderate bilateral leg/foot edema Neurological: cranial nerve grossly intact Psychiatric: A&O x 3 Hosp A/P (1) Sepsis Code(s): A41.9 - SEPSIS, UNSPECIFIED ORGANISM Status: Acute (2) Proteus infection Code(s): A49.8 - OTHER BACTERIAL INFECTIONS OF UNSPECIFIED SITE Status: Acute (3) Bacteremia Code(s): R78.81 - BACTEREMIA Status: Acute (4) UTI (urinary tract infection) Status: Acute (5) Acute metabolic encephalopathy Code(s): G93.41 - METABOLIC ENCEPHALOPATHY Status: Acute (6) Nephrolithiasis Status: Acute (7) Hydronephrosis of left kidney Code(s): N13.30 - UNSPECIFIED HYDRONEPHROSIS Status: Acute (8) PAF (paroxysmal atrial fibrillation) Code(s): I48.0 - PAROXYSMAL ATRIAL FIBRILLATION Status: Acute (9) Cholelithiases Code(s): K80.20 - CALCULUS OF GALLBLADDER W/O CHOLECYSTITIS W/O OBSTRUCTION Status: Acute (10) NICM (nonischemic cardiomyopathy) Code(s): I42.8 - OTHER CARDIOMYOPATHIES Status: Acute (11) Urinary retention Code(s): R33.9 - RETENTION OF URINE, UNSPECIFIED Status: Acute (12) COPD (chronic obstructive pulmonary disease) Status: Chronic Qualifiers: COPD type: COPD with acute exacerbation Qualified Code(s): J44.1 - Chronic obstructive pulmonary disease with (acute) exacerbation (13) Chronic respiratory failure with hypoxia and hypercapnia Code(s): J96.11 - CHRONIC RESPIRATORY FAILURE WITH HYPOXIA; J96.12 - CHRONIC RESPIRATORY FAILURE WITH HYPERCAPNIA Status: Chronic (14) Kyphoscoliosis Code(s): M41.9 - SCOLIOSIS, UNSPECIFIED Status: Chronic (15) Hypoalbuminemia Code(s): E88.09 - OTH DISORDERS OF PLASMA-PROTEIN METABOLISM, NEC Status: Acute - Plan Continue antibiotics. cefepime substituted with ceftriazone in line with susceptibility Definitive stone treatment as per urology Continue other treatments. Continue close monitoring. get repeat albumin in the am. diuretic therapy contemplated. Start oral supplement.
--- NOTE | 2019-02-12 18:02 | PDOC.CPN ---
- Subjective Date: 02/12/19 (EP follow up note) Time: 18:00 Interval history: EP PROGRESS NOTE: 02/12/19 Seen as follow up for MAT and arrhytmia management/Tikosyn re-loading. In stepdown ICU now. feels better than last week. Breathing is easier and HR is now controlled. Palpitations resolved. - Review of Systems Respiratory: reports: shortness of breath (Mild - back to baseline) - Objective Allergies/Adverse Reactions: Allergies Allergy/AdvReac Type Severity Reaction Status Date / Time ibuprofen [From Motrin] Allergy Verified 01/30/19 15:13 Visit Medications: Current Medications Albuterol/Ipratropium (Duoneb) 3 ml NEB [id number] [facility] Last Admin: 02/12/19 15:13 Dose: 3 ml Apixaban (Eliquis) 2.5 mg PO BID TAHIRA Carvedilol (Coreg) 3.125 mg PO BID [facility] Last Admin: 02/12/19 10:19 Dose: 3.125 mg Cholecalciferol (Vitamin D3) 5,000 units PO DAILY TAHIRA Last Admin: 02/12/19 10:19 Dose: 5,000 units Digoxin (Lanoxin) 0.125 mg SLOW IVP DAILY [facility] Last Admin: 02/12/19 10:19 Dose: 0.125 mg Dofetilide (Tikosyn) 0.25 mg PO 0600,1800 [facility] Last Admin: 02/12/19 05:47 Dose: 0.25 mg Ceftriaxone Sodium 2 gm/ (Sodium Chloride) 100 mls @ 200 mls/hr IVPB Q24HR [facility] Last Admin: 02/12/19 12:41 Dose: 100 mls Methylprednisolone Sodium Succinate (Solu-Medrol) 40 mg IVP Q6HR TAHIRA Last Admin: 02/12/19 12:41 Dose: 40 mg Morphine Sulfate (Morphine) 2 mg SLOW IVP Q4H PRN PRN Reason: Severe Pain (7-10) Last Admin: 02/12/19 03:30 Dose: 2 mg Ondansetron HCl (Zofran) 4 mg SLOW IVP Q8H PRN PRN Reason: Nausea/Vomiting Sodium Chloride (Flush - Normal Saline) 10 ml IVF Q12HR TAHIRA Last Admin: 02/12/19 10:21 Dose: 10 ml Sodium Chloride (Flush - Normal Saline) 10 ml IVF PRN PRN PRN Reason: Saline Flush Last Admin: 02/08/19 05:13 Dose: 10 ml Sterile Water (Bacteriostatic Water) 1 ml FS PRN PRN PRN Reason: RECONSTITUTION Last Admin: 02/11/19 11:29 Dose: 1 ml Vital Signs & Weight: Vital Signs Temp Pulse Resp Pulse Ox 02/12/19 15:34 98.5 F 02/12/19 15:13 80 21 H 99 02/12/19 11:25 98.6 F 02/12/19 11:12 99 21 H 99 02/12/19 10:19 104 H 02/12/19 08:08 104 H 27 H 02/12/19 08:00 100 02/12/19 07:16 97.8 F Weight 153 lb 0.013 oz - Physical Exam Neck: no JVD/HJR Cardiac: no murmur, regular rate, S1/S2 (Normal) Lungs: bibasilar rales Neuro: grossly intact Abdomen: active bowel sounds Extremities: no cyanosis Skin: clear Musculoskeletal: other (Sever kypho-scoliosis.) - Labs Result Diagrams: 02/09/19 05:55 02/12/19 05:59 - Telemetry Sinus rhythms and dysrhythmias: sinus rhythm Supraventricular conduction: atrial escape complexes - Problem (1) PAF (paroxysmal atrial fibrillation) Code(s): I48.0 - PAROXYSMAL ATRIAL FIBRILLATION - Assessment/Plan Assessment/Plan: - Assessment/Plan Assessment/Plan: Mr. Rosa is a pleasant 78-year-old man with prior history of advanced COPD; kyphoscoliosis; cardiomyopathy, nonischemic; recurrent atrial arrhythmias; who presented with urosepsis, which is likely obstructive. He underwent a cystoscopy and left ureteral stent placement. He also had been sent for cultures and antibiotics are planned. Currently, on cefepime. His urosepsis is improving. While in severely septic condition, his atrial fibrillation recurred especially hence his antiarrhythmic agent Tikosyn was on hold. On the other hand, with digoxin and fluid repletion and temperature control, his heart rates became more normalized. Blood pressures remain borderline. My plan would be; 1. Afib/MAT, Improving; rate controlled - Digoxin 125mcg daily -Contoinue current tikosyn dose. - avoid QTc prolonging anbx and medications. 3rd gen cephalosporin/cefepime- ok. 2. Chronic anticoagulation with apixaban, - currently on hold d/t mild hematuria - Resume anticoagulation YAHIR but need urology to approve first 4. ICD function dual-chamber adequate. -No new issues. Continue monitoring. I would sign off. Please arrange follow up in 6 weeks. Please call if questions.
--- NOTE | 2019-02-12 20:52 | PRG ---
DATE OF SERVICE: 02/12/2019 SUBJECTIVE: Jodry Rosa improved compared to Tuesday, although he is confused. OBJECTIVE: VITAL SIGNS: He is afebrile, heart rate 101, respiratory rate 24, oximetry is 96% on 3 L, blood pressure 126/57. LUNGS: Clear. HEART: Regular rhythm. ABDOMEN: Soft. LABORATORY DATA: Sodium 141, potassium 4.7, chloride 106, bicarb 26, BUN 40, and creatinine 1.05. IMPRESSION: 1. Respiratory insufficiency that is chronic secondary to kyphoscoliosis. 2. History of asthma. 3. Nephrolithiasis, status post stenting. 4. Multifocal atrial tachycardia. 5. Encephalopathy secondary to critical illness. His prognosis is quite guarded. We will decrease his steroid dosing, which may help with his encephalopathy. Job ID: [id number]
--- NOTE | 2019-02-12 23:08 | EKG ---
Test Reason : Blood Pressure : / mmHG Vent. Rate : 098 BPM Atrial Rate : 098 BPM P-R Int : 168 ms QRS Dur : 124 ms QT Int : 356 ms P-R-T Axes : 089 -41 060 degrees QTc Int : 454 ms Sinus rhythm with frequent Premature ventricular complexes and Premature atrial complexes Left axis deviation Right bundle branch block Anteroseptal infarct , age undetermined T wave abnormality, consider lateral ischemia Abnormal ECG When compared with ECG of 03-NOV-2018 21:20, Sinus rhythm has replaced Electronic ventricular pacemaker Confirmed by ASHLEIGH HERNANDEZ M.D. ([id number]) on 02/12/2019 11:08:28 PM Referred By: [facility] Confirmed By:ASHLEIGH HERNANDEZ M.D.
--- NOTE | 2019-02-12 23:14 | EKG ---
Test Reason : TIMED Blood Pressure : / mmHG Vent. Rate : 097 BPM Atrial Rate : 097 BPM P-R Int : 176 ms QRS Dur : 114 ms QT Int : 330 ms P-R-T Axes : 081 -31 094 degrees QTc Int : 419 ms Sinus rhythm with frequent Premature ventricular complexes and Premature atrial complexes Left axis deviation Incomplete right bundle branch block Anterior infarct (cited on or before 03-NOV-2018) Abnormal ECG Confirmed by ASHLEIGH HERNANDEZ M.D. ([id number]) on 02/12/2019 11:13:57 PM Referred By: [facility] Confirmed By:ASHLEIGH HERNANDEZ M.D.
--- NOTE | 2019-02-12 23:16 | EKG ---
Test Reason : Blood Pressure : / mmHG Vent. Rate : 093 BPM Atrial Rate : 055 BPM P-R Int : 176 ms QRS Dur : 098 ms QT Int : 358 ms P-R-T Axes : 061 -49 267 degrees QTc Int : 445 ms Normal sinus rhythm demand atrial pacemaker. Left axis deviation Incomplete right bundle branch block Anteroseptal infarct (cited on or before 03-NOV-2018) Abnormal ECG Confirmed by ASLHEIGH HERNANDEZ M.D. ([id number]) on 02/12/2019 11:16:16 PM Referred By: [facility] Confirmed By:ASHLEIGH HERNANDEZ M.D.
--- NOTE | 2019-02-12 23:19 | EKG ---
Test Reason : TIMED Blood Pressure : / mmHG Vent. Rate : 094 BPM Atrial Rate : 090 BPM P-R Int : 000 ms QRS Dur : 106 ms QT Int : 354 ms P-R-T Axes : 092 -24 -70 degrees QTc Int : 442 ms Demand atrial pacemaker. Premature ventricular complexes Abnormal ECG Confirmed by ASHLEIGH HERNANDEZ M.D. ([id number]) on 02/12/2019 11:19:25 PM Referred By: [facility] Confirmed By:ASHLEIGH HERNANDEZ M.D.
--- NOTE | 2019-02-12 23:21 | EKG ---
Test Reason : Blood Pressure : / mmHG Vent. Rate : 100 BPM Atrial Rate : 100 BPM P-R Int : 166 ms QRS Dur : 110 ms QT Int : 356 ms P-R-T Axes : 090 -50 246 degrees QTc Int : 459 ms Sinus rhythm with Premature ventricular complexes Incomplete right bundle branch block Left anterior fascicular block Anterior infarct (cited on or before 03-NOV-2018) Abnormal ECG Confirmed by ASHLEIGH HERNANDEZ M.D. ([id number]) on 02/12/2019 11:21:09 PM Referred By: [facility] Confirmed By:ASHLEIGH HERNANDEZ M.D.
[2019-02-13] MEDS: methylPREDNISolone Sod Succ 40 MG VIAL IVP SCH ×3 (05:02→21:17)
[2019-02-13] MEDS: Dofetilide 0.125 MG CAP PO SCH ×2 (05:02→18:42)
[2019-02-13 07:43] LABS: Phosphorus 2.8 mg/dL (2.3-4.7)
[2019-02-13 07:45] LABS: Anion Gap 10 mmol/L (10-20); BUN (Urea Nitrogen) 34 mg/dL (8.4-25.7); Calc. Creatinine Clearance 80 mL/min (70-130); Calcium 9.8 mg/dL (7.8-10.44); Carbon Dioxide 28 mmol/L (23-31); Chloride 105 mmol/L (98-107); Estimated GFR-MDRD Greater than 90; Glucose 136 mg/dL (83-110); Potassium 4.3 mmol/L (3.5-5.1); Sodium 139 mmol/L (136-145)
[2019-02-13] MEDS ORDERED: Albumin 25% 25 GM/100 ML BOT IVPB SCH (08:24)
[2019-02-13] MEDS ORDERED: Furosemide 40 MG TAB PO SCH (09:00)
[2019-02-13] MEDS: Carvedilol 3.125 MG TAB PO SCH ×2 (09:03→21:17)
[2019-02-13] MEDS: Digoxin 0.125 MG TAB PO SCH (09:03)
[2019-02-13] MEDS: cefTRIAXone\\ROCEPHIN 2 GM in Sodium Chloride 0.9% 100 ML IVPB SCH (09:09)
--- NOTE | 2019-02-13 16:26 | PDOC.HOSPP ---
- Subjective Encounter Date: 02/13/19 Encounter Time: 13:24 Subjective: 78 y/o male with severe kyphoscoliosis, NICM s/p AICD, chronic respiratory failure from COPd on home oxygen admitted with left flank pain associated with nausea and vomiting. S/p cystoscopy with stent placement on the left. No new problem. still with occasional confusion. - Objective Vital Signs & Weight: Vital Signs (12 hours) Pulse Resp Pulse Ox 02/13/19 14:30 95 20 100 02/13/19 10:53 105 H 29 H 98 02/13/19 09:03 119 H 02/13/19 08:06 83 22 H 96 02/13/19 08:00 98 Weight Weight 153 lb 0.013 oz Most Recent Monitor Data Heart Rate from ECG 102 NIBP 115/60 NIBP BP-Mean 78 Respiration from ECG 26 SpO2 99 I&O: 02/12/19 02/13/19 02/14/19 06:59 06:59 06:59 Intake Total 400 2110 Output Total 600 1350 Balance -200 760 Result Diagrams: 02/09/19 05:55 02/13/19 07:11 Hospitalist ROS - Medication Medications: Active Medications Generic Name Dose Route Start Last Admin Trade Name Freq PRN Reason Stop Dose Admin Albuterol/Ipratropium 3 ml 02/11/19 18:30 02/13/19 14:30 Duoneb NEB 3 ml [id number] TAHIRA Administration Carvedilol 3.125 mg 02/10/19 21:00 02/13/19 09:03 Coreg PO 3.125 mg BID TAHIRA Administration Cholecalciferol 5,000 units 02/11/19 09:00 02/13/19 09:02 Vitamin D3 PO 5,000 units DAILY TAHIRA Administration Digoxin 0.125 mg 02/13/19 09:00 02/13/19 09:03 Lanoxin PO 0.125 mg DAILY TAHIRA Administration Dofetilide 0.25 mg 02/09/19 18:00 02/13/19 05:02 Tikosyn PO 0.25 mg 0600,1800 TAHIRA Administration Ceftriaxone Sodium 2 gm/ 100 mls @ 200 mls/hr 02/11/19 11:00 02/13/19 09:09 Sodium Chloride IVPB 100 mls Q24HR TAHIRA Administration Methylprednisolone Sodium Succinate 20 mg 02/12/19 22:00 02/13/19 13:27 Solu-Medrol IVP 20 mg Q8HR TAHIRA Administration Morphine Sulfate 2 mg 02/08/19 01:43 02/12/19 03:30 Morphine SLOW IVP 2 mg Q4H PRN Administration Severe Pain (7-10) Sodium Chloride 10 ml 02/08/19 09:00 02/13/19 09:03 Flush - Normal Saline IVF 10 ml Q12HR TAHIRA Administration Sodium Chloride 10 ml 02/08/19 04:05 02/08/19 05:13 Flush - Normal Saline IVF 10 ml PRN PRN Administration Saline Flush Sterile Water 1 ml 02/11/19 04:38 02/11/19 11:29 Bacteriostatic Water FS 1 ml PRN PRN Administration RECONSTITUTION - Exam General Appearance: awake alert Eye: anicteric sclera ENT: normocephalic atraumatic Heart: RRR Respiratory - other findings: fair air entry with some transmitted sound Gastrointestinal: soft, non-tender, non-distended Gastrointestinal - other findings: hammond catheter in place Extremities - other findings: mild to moderate bilateral leg edema noted Neurological: cranial nerve grossly intact Musculoskeletal - other findings: severe kyphoscoliosis noted Hosp A/P (1) Sepsis Code(s): A41.9 - SEPSIS, UNSPECIFIED ORGANISM Status: Acute (2) Proteus infection Code(s): A49.8 - OTHER BACTERIAL INFECTIONS OF UNSPECIFIED SITE Status: Acute (3) Bacteremia Code(s): R78.81 - BACTEREMIA Status: Acute (4) UTI (urinary tract infection) Status: Acute (5) Acute metabolic encephalopathy Code(s): G93.41 - METABOLIC ENCEPHALOPATHY Status: Acute (6) Nephrolithiasis Status: Acute (7) Hydronephrosis of left kidney Code(s): N13.30 - UNSPECIFIED HYDRONEPHROSIS Status: Acute (8) PAF (paroxysmal atrial fibrillation) Code(s): I48.0 - PAROXYSMAL ATRIAL FIBRILLATION Status: Chronic (9) Cholelithiases Code(s): K80.20 - CALCULUS OF GALLBLADDER W/O CHOLECYSTITIS W/O OBSTRUCTION Status: Acute (10) NICM (nonischemic cardiomyopathy) Code(s): I42.8 - OTHER CARDIOMYOPATHIES Status: Acute (11) Urinary retention Code(s): R33.9 - RETENTION OF URINE, UNSPECIFIED Status: Acute (12) COPD (chronic obstructive pulmonary disease) Status: Chronic Qualifiers: COPD type: COPD with acute exacerbation Qualified Code(s): J44.1 - Chronic obstructive pulmonary disease with (acute) exacerbation (13) Chronic respiratory failure with hypoxia and hypercapnia Code(s): J96.11 - CHRONIC RESPIRATORY FAILURE WITH HYPOXIA; J96.12 - CHRONIC RESPIRATORY FAILURE WITH HYPERCAPNIA Status: Chronic (14) Kyphoscoliosis Code(s): M41.9 - SCOLIOSIS, UNSPECIFIED Status: Chronic (15) Hypoalbuminemia Code(s): E88.09 - OT DISORDERS OF PLASMA-PROTEIN METABOLISM, NEC Status: Acute - Plan Continue antibiotics. cefepime substituted with ceftriazone in line with susceptibility Continue lasix. add albumin to help with generalized edema Definitive stone treatment as per urology Continue other treatments. Continue oral supplement.
[2019-02-13] MEDS ORDERED: Albumin 25% 25 GM/100 ML BOT IVPB ONE (16:28)
--- NOTE | 2019-02-13 16:56 | PRG ---
DATE OF SERVICE: 02/13/2019 SUBJECTIVE: Jordy Rosa is a little more alert today. He can tell me he is in the hospital in [place]. OBJECTIVE: VITAL SIGNS: His oximetry is 100% on 3 L, respiratory rates in the 20s, heart rates in the 90s, blood pressure 115/60. LUNGS: Distant, clear. HEART: Regular rhythm. ABDOMEN: Soft. LABORATORY DATA: Sodium 139, potassium 4.3, chloride 105, bicarb 28, BUN 34, and creatinine 0.77. IMPRESSION: 1. Chronic respiratory failure secondary to severe kyphoscoliosis. 2. Sleep apnea, compliant with therapy at home. 3. Asthma. 4. Pyelonephritis secondary to obstructing uropathy. PLAN: Continue supportive care. He may need placement. Probably, could move off the intermediate care unit tomorrow. Job ID: [id number]
[2019-02-13] MEDS ORDERED: Furosemide 20 MG TAB PO SCH (19:00)
[2019-02-13] MEDS: Bacteriostatic Water 30 ML VIAL FS PRN (21:17)
[2019-02-13] MEDS: Morphine 2 MG/ML SYRINGE SLOW IVP PRN (23:42)
[2019-02-14 06:03] LABS: Phosphorus 3.1 mg/dL (2.3-4.7)
[2019-02-14 06:04] LABS: Anion Gap 12 mmol/L (10-20); BUN (Urea Nitrogen) 22 mg/dL (8.4-25.7); Calc. Creatinine Clearance 85 mL/min (70-130); Calcium 9.4 mg/dL (7.8-10.44); Carbon Dioxide 34 mmol/L (23-31); Chloride 99 mmol/L (98-107); Estimated GFR-MDRD Greater than 90; Glucose 139 mg/dL (83-110); Magnesium 1.9 mg/dL (1.6-2.6); Potassium 3.6 mmol/L (3.5-5.1); Sodium 141 mmol/L (136-145)
[2019-02-14] MEDS: Bacteriostatic Water 30 ML VIAL FS PRN ×2 (06:16→21:32)
[2019-02-14] MEDS: Dofetilide 0.125 MG CAP PO SCH ×2 (06:16→17:45)
[2019-02-14] MEDS: methylPREDNISolone Sod Succ 40 MG VIAL IVP SCH ×4 (06:16→21:32)
[2019-02-14 07:01] LABS: Hemoglobin 8.3 g/dL (14.0-18.0); Mean Corpuscular HGB CONC 31.9 g/dL (32.0-36.0); Mean Corpuscular Hemoglobin 28.9 pg (27.0-31.0); Mean Corpuscular Volume 90.5 fL (78.0-98.0); Mean Platelet Volume 9.2 fL (7.4-10.4); Platelet Count 163 thou/uL (130-400); RBC Distribution Width 14.5 % (11.5-14.5); Red Blood Cell (RBC) Count 2.87 mill/uL (4.70-6.10); White Blood Cell (WBC) Count 6.4 thou/uL (4.8-10.8)
[2019-02-14 07:45] LABS: Band 1 % (5-11); Hypersemented Neutrophil SLIGHT; Hypochromia SLIGHT = 6-15 cells (100X) (0-5/hpf); Lymphocytes 21 % (21-51); MDiff Complete? YES; Monocytes 7 % (0-10); Neutrophil 70 % (42-75); Ovalocytes SLIGHT = 2-5 cells (100X) (0-1/hpf); Platelet Morphology Comment Appears Adequate; Polychromasia SLIGHT = 2-3 cells (100X) (0-2/hpf); Reactive Lymphocytes 1 % (0-10)
[2019-02-14] MEDS: Carvedilol 3.125 MG TAB PO SCH ×2 (10:30→20:46)
[2019-02-14] MEDS: Digoxin 0.125 MG TAB PO SCH (10:30)
[2019-02-14] MEDS: Ferrous Sulfate 325 MG TAB PO SCH (10:31)
[2019-02-14] MEDS: Potassium Chloride 10 MEQ TAB PO SCH (10:31)
[2019-02-14] MEDS: cefTRIAXone\\ROCEPHIN 2 GM in Sodium Chloride 0.9% 100 ML IVPB SCH ×2 (10:34→18:54)
[2019-02-14] MEDS: Furosemide 40 MG TAB PO SCH (10:35)
--- NOTE | 2019-02-14 15:33 | PRG ---
DATE OF SERVICE: 02/14/2019 SUBJECTIVE: Mr. Rosa is having to have an IV everyday replaced. He is still on IV antibiotics. He is hemodynamically stable. SUBJECTIVE: LUNGS: Clear. HEART: Regular rhythm. ABDOMEN: Soft. LABORATORY DATA: White count 6.4, hemoglobin 8.3, platelets 14,500. Electrolytes are unremarkable. Creatinine 0.73. He had Proteus mirabilis grow out of both his blood cultures Rocephin. I have recommended placement of a PICC line. Dr. Desai will have to determine how we will go with IV antibiotics. The organism is sensitive to ampicillin, but that is the only p.o. antimicrobial that it is to. We will continue to follow. at this time is stable. Job ID: [id number]
--- NOTE | 2019-02-14 17:27 | PRG ---
DATE OF SERVICE: 02/14/2019 SUBJECTIVE: The patient states that he had been doing quite well. He is currently sleeping at the time of examination, but nursing staff reports that he has not had any significant complaints. He recently underwent a pleurocentesis for removal of some pleural fluids. He is also being seen by Dr. Ferraro and Dr. Arora for Cardiology. He is being treated with antibiotics for his Proteus sepsis, which originate from his urinary tract, status post ureteral stent. He has indwelling catheter, which is currently draining relatively clear urine. OBJECTIVE: VITAL SIGNS: Temperature 98.2, pulse 93, respirations 18, blood pressure 125/66, and saturation 100% on 4 L nasal cannula. GENERAL: Sleeping, appears comfortable. Nasal cannula in place. CARDIOVASCULAR: Irregularly irregular rhythm. ABDOMEN: Soft, nontender, and nondistended. EXTREMITIES: No significant clubbing, cyanosis, or edema. LABORATORY DATA: On laboratory evaluation, the full set of labs are in the [facility] system, which I have reviewed. Of note, the patient's white count is 6.4 with a hemoglobin 8.3, creatinine of 0.73. ASSESSMENT AND PLAN: A 78-year-old white male with multiple comorbidities including urosepsis with Proteus secondary to impacted ureteral stone, status post ureteral stent. He may resume his anticoagulation at this time as there is no strong evidence that he is having any significant hematuria. I would recommend antibiotic treatment for at least 2 weeks, after which time he can be scheduled electively for ureteroscopy and laser lithotripsy. I would not recommend removal of the Bernabe catheter as the patient has incomplete bladder emptying and will likely not clear his infection or get sick again, given that he has ureteral stent in if he has refluxing urine with infection. He will probably need to be on antibiotic prophylaxis after his 2-week course of antibiotics, which he can do with low-dose ampicillin. The patient has resistance to fluoroquinolones. For now, he can be treated with oral ampicillin if desired or he may remain on a IV antibiotics while in the hospital. It should not make any major difference. There is nothing further from my standpoint that I would recommend at this time other than continuation and completion of at least 2 weeks of antibiotics, at which time I would like to have a cardiac clearance to ensure that he is optimized from a cardiac standpoint to the best that he can be to undergo definitive ureteroscopy and removal of stones. If necessary, his ureteroscopy can be done on anticoagulation, although it would be preferable to be done off anticoagulation. I will follow along if necessary and be available for any further questions. Job ID: [id number]
--- NOTE | 2019-02-14 18:27 | PDOC.HOSPP ---
- Subjective Encounter Date: 02/14/19 Encounter Time: 18:25 Subjective: 78 y/o male with severe kyphoscoliosis, NICM s/p AICD, chronic respiratory failure from COPd on home oxygen admitted with left flank pain associated with nausea and vomiting. S/p cystoscopy with stent placement on the left. No new problem. More oriented and coherent but with occasional confusion. - Objective Vital Signs & Weight: Vital Signs (12 hours) Temp Pulse Resp Pulse Ox 02/14/19 18:16 96 16 99 02/14/19 15:46 98.2 F 02/14/19 14:25 93 18 100 02/14/19 11:37 98.3 F 02/14/19 11:26 110 H 25 H 02/14/19 10:30 108 H 02/14/19 08:00 100 02/14/19 07:57 100 02/14/19 07:55 103 H 34 H 100 02/14/19 07:25 98.2 F Weight Weight 153 lb 0.013 oz Most Recent Monitor Data Heart Rate from ECG 97 NIBP 125/66 NIBP BP-Mean 85 Respiration from ECG 21 SpO2 89 I&O: 02/13/19 02/14/19 02/15/19 06:59 06:59 06:59 Intake Total 2110 1230 Output Total 1350 3950 Balance 760 -2720 Result Diagrams: 02/14/19 06:25 02/14/19 05:20 Hospitalist ROS - Medication Medications: Active Medications Generic Name Dose Route Start Last Admin Trade Name Freq PRN Reason Stop Dose Admin Albuterol/Ipratropium 3 ml 02/11/19 18:30 02/14/19 18:16 Duoneb NEB 3 ml [id number] TAHIRA Administration Carvedilol 3.125 mg 02/10/19 21:00 02/14/19 10:30 Coreg PO 3.125 mg BID TAHIRA Administration Cholecalciferol 5,000 units 02/11/19 09:00 02/14/19 14:01 Vitamin D3 PO 5,000 units DAILY TAHIRA Administration Digoxin 0.125 mg 02/13/19 09:00 02/14/19 10:30 Lanoxin PO 0.125 mg DAILY TAHIRA Administration Dofetilide 0.25 mg 02/09/19 18:00 02/14/19 17:45 Tikosyn PO 0.25 mg 0600,1800 TAHIRA Administration Ferrous Sulfate 325 mg 02/14/19 08:00 02/14/19 10:31 Feosol PO 325 mg QAM-WM TAHIRA Administration Furosemide 40 mg 02/14/19 07:30 02/14/19 10:35 Lasix PO 40 mg DAILY-AC TAHIRA Administration Methylprednisolone Sodium Succinate 20 mg 02/12/19 22:00 02/14/19 06:16 Solu-Medrol IVP 20 mg Q8HR TAHIRA Administration Morphine Sulfate 2 mg 02/08/19 01:43 02/13/19 23:42 Morphine SLOW IVP 2 mg Q4H PRN Administration Severe Pain (7-10) Pantoprazole Sodium 40 mg 02/14/19 09:00 02/14/19 10:31 Protonix PO 40 mg DAILY TAHIRA Administration Potassium Chloride 10 meq 02/14/19 08:00 02/14/19 10:31 Klor-Con 10 PO 10 meq QAM-WM TAHIRA Administration Sodium Chloride 10 ml 02/08/19 09:00 02/14/19 10:31 Flush - Normal Saline IVF 10 ml Q12HR TAHIRA Administration Sodium Chloride 10 ml 02/08/19 04:05 02/08/19 05:13 Flush - Normal Saline IVF 10 ml PRN PRN Administration Saline Flush Sterile Water 1 ml 02/11/19 04:38 02/14/19 06:16 Bacteriostatic Water FS 1 ml PRN PRN Administration RECONSTITUTION - Exam General Appearance: awake alert ENT: normocephalic atraumatic Neck: symmetric Heart: RRR Respiratory - other findings: fair air entry with few transmitted sound. No distress Gastrointestinal: soft, non-tender, non-distended, normal bowel sounds Extremities: 1+ LE edema Neurological: cranial nerve grossly intact, no focal deficits Psychiatric: A&O x 3 Hosp A/P (1) Sepsis Code(s): A41.9 - SEPSIS, UNSPECIFIED ORGANISM Status: Acute (2) Proteus infection Code(s): A49.8 - OTHER BACTERIAL INFECTIONS OF UNSPECIFIED SITE Status: Acute (3) Bacteremia Code(s): R78.81 - BACTEREMIA Status: Acute (4) UTI (urinary tract infection) Status: Acute (5) Acute metabolic encephalopathy Code(s): G93.41 - METABOLIC ENCEPHALOPATHY Status: Acute (6) Nephrolithiasis Status: Acute (7) Hydronephrosis of left kidney Code(s): N13.30 - UNSPECIFIED HYDRONEPHROSIS Status: Acute (8) PAF (paroxysmal atrial fibrillation) Code(s): I48.0 - PAROXYSMAL ATRIAL FIBRILLATION Status: Chronic (9) Cholelithiases Code(s): K80.20 - CALCULUS OF GALLBLADDER W/O CHOLECYSTITIS W/O OBSTRUCTION Status: Acute (10) NICM (nonischemic cardiomyopathy) Code(s): I42.8 - OTHER CARDIOMYOPATHIES Status: Acute (11) Urinary retention Code(s): R33.9 - RETENTION OF URINE, UNSPECIFIED Status: Acute (12) COPD (chronic obstructive pulmonary disease) Status: Chronic Qualifiers: COPD type: COPD with acute exacerbation Qualified Code(s): J44.1 - Chronic obstructive pulmonary disease with (acute) exacerbation (13) Chronic respiratory failure with hypoxia and hypercapnia Code(s): J96.11 - CHRONIC RESPIRATORY FAILURE WITH HYPOXIA; J96.12 - CHRONIC RESPIRATORY FAILURE WITH HYPERCAPNIA Status: Chronic (14) Kyphoscoliosis Code(s): M41.9 - SCOLIOSIS, UNSPECIFIED Status: Chronic (15) Hypoalbuminemia Code(s): E88.09 - [facility] DISORDERS OF PLASMA-PROTEIN METABOLISM, NEC Status: Acute - Plan Substitute IV ceftriazone with oral cefdinir Restart Eliquis Continue lasix. Definitive stone treatment as per urology contemplated after 2 weeks of antibiotics. Continue other treatments. Continue oral supplement. D/W Urology. Patient can be discharged with hammond catheter and anticoagulation can be restarted.
[2019-02-14] MEDS ORDERED: Clopidogrel Bisulfate 75 MG TAB ONE (20:32)
[2019-02-14] MEDS: Apixaban 2.5 MG TAB PO SCH (20:46)
[2019-02-14] MEDS: Morphine 2 MG/ML SYRINGE SLOW IVP PRN (20:47)
[2019-02-14] MEDS ORDERED: Cefdinir 300 MG CAP PO SCH (21:00)
[2019-02-15] MEDS: Bacteriostatic Water 30 ML VIAL FS PRN (05:00)
[2019-02-15] MEDS: Dofetilide 0.125 MG CAP PO SCH ×2 (05:00→18:16)
[2019-02-15] MEDS: methylPREDNISolone Sod Succ 40 MG VIAL IVP SCH (05:00)
[2019-02-15 05:19] LABS: Hemoglobin 9.2 g/dL (14.0-18.0); Mean Corpuscular HGB CONC 30.3 g/dL (32.0-36.0); Mean Corpuscular Hemoglobin 27.8 pg (27.0-31.0); Mean Corpuscular Volume 91.7 fL (78.0-98.0); Mean Platelet Volume 8.6 fL (7.4-10.4); Platelet Count 225 thou/uL (130-400); RBC Distribution Width 15.1 % (11.5-14.5); Red Blood Cell (RBC) Count 3.31 mill/uL (4.70-6.10); White Blood Cell (WBC) Count 7.9 thou/uL (4.8-10.8)
[2019-02-15 05:34] LABS: BUN (Urea Nitrogen) 27 mg/dL (8.4-25.7); Calc. Creatinine Clearance 81 mL/min (70-130); Calcium 9.3 mg/dL (7.8-10.44); Estimated GFR-MDRD Greater than 90; Glucose 141 mg/dL (83-110); Magnesium 1.9 mg/dL (1.6-2.6)
[2019-02-15 05:44] LABS: Anion Gap 12 mmol/L (10-20); Carbon Dioxide 36 mmol/L (23-31); Chloride 98 mmol/L (98-107); Sodium 142 mmol/L (136-145)
[2019-02-15] MEDS: traMADol HCl 50 MG TAB PO PRN ×2 (05:51→20:49)
[2019-02-15 05:59] LABS: Phosphorus 3.3 mg/dL (2.3-4.7)
[2019-02-15] MEDS: Ferrous Sulfate 325 MG TAB PO SCH (08:57)
[2019-02-15] MEDS: Digoxin 0.125 MG TAB PO SCH (08:57)
[2019-02-15] MEDS: Amoxicillin/Potassium Clav 875 MG TAB PO SCH ×2 (08:57→20:46)
[2019-02-15] MEDS: Potassium Chloride 10 MEQ TAB PO SCH (08:57)
[2019-02-15] MEDS: Furosemide 40 MG TAB PO SCH (08:57)
[2019-02-15] MEDS: Carvedilol 3.125 MG TAB PO SCH (09:02)
[2019-02-15] MEDS: Apixaban 2.5 MG TAB PO SCH ×2 (09:03→20:46)
--- NOTE | 2019-02-15 09:53 | PRG ---
DATE OF SERVICE: 02/15/2019 SUBJECTIVE: Jordy Rosa says he feels a little bit better. Dr. Desai placed in his note that he could be switched to ampicillin, so I will start him on Augmentin per Dr. Desai's recommendations. We will switch him to p.o. prednisone. He still has mild wheezes on exam, but I suspect some of this is related to mucous plugging. Otherwise, his heart, abdomen and extremity exam is unchanged. He probably could be transferred out of intermediate care within the next 24-48 hours. He still has intermittent mild tachycardia, but he is not symptomatic with this and there really are not any therapeutic options for him. Majority of heart rates are actually right around the 100. I am not sure that this needs to be addressed medically, but I believe the hospitalist is going to reconsult the administrative executive. We will continue to follow. Job ID: [id number]
--- NOTE | 2019-02-15 14:18 | PDOC.HOSPP ---
- Subjective Encounter Date: 02/15/19 Encounter Time: 10:17 Subjective: 78 y/o male with severe kyphoscoliosis, NICM s/p AICD, chronic respiratory failure from COPd on home oxygen admitted with left flank pain associated with nausea and vomiting. S/p cystoscopy with stent placement on the left. No new problem. More oriented and conversational. More tachycardic with sitting on the bedside. Generalized weakness. - Objective Vital Signs & Weight: Vital Signs (12 hours) Temp Pulse Resp Pulse Ox 02/15/19 14:14 103 H 20 100 02/15/19 11:40 97.2 F L 02/15/19 10:48 109 H 18 100 02/15/19 08:57 117 H 02/15/19 08:04 117 H 20 96 02/15/19 08:00 98 02/15/19 03:20 98.5 F Weight Weight 153 lb 0.013 oz Most Recent Monitor Data Heart Rate from ECG 120 NIBP 110/55 NIBP BP-Mean 73 Respiration from ECG 19 SpO2 100 I&O: 02/14/19 02/15/19 02/16/19 06:59 06:59 06:59 Intake Total 1230 2370 Output Total 3950 2625 Balance -3210 -255 Result Diagrams: 02/15/19 05:00 02/15/19 05:00 Hospitalist ROS - Medication Medications: Active Medications Generic Name Dose Route Start Last Admin Trade Name Freq PRN Reason Stop Dose Admin Albuterol/Ipratropium 3 ml 02/11/19 18:30 02/15/19 14:14 Duoneb NEB 3 ml [id number] TAHIRA Administration Amoxicillin/Clavulanate Potassium 875 mg 02/15/19 09:00 02/15/19 08:57 Augmentin PO 875 mg Q12HR TAHIRA Administration Apixaban 2.5 mg 02/14/19 21:00 02/15/19 09:03 Eliquis PO 2.5 mg BID TAHIRA Administration Cholecalciferol 5,000 units 02/11/19 09:00 02/15/19 08:56 Vitamin D3 PO 5,000 units DAILY TAHIRA Administration Digoxin 0.125 mg 02/13/19 09:00 02/15/19 08:57 Lanoxin PO 0.125 mg DAILY TAHIRA Administration Dofetilide 0.25 mg 02/09/19 18:00 02/15/19 05:00 Tikosyn PO 0.25 mg 0600,1800 TAHIRA Administration Ferrous Sulfate 325 mg 02/14/19 08:00 02/15/19 08:57 Feosol PO 325 mg QAM-WM TAHIRA Administration Furosemide 40 mg 02/14/19 07:30 02/15/19 08:57 Lasix PO 40 mg DAILY-AC TAHIRA Administration Metoprolol Tartrate 12.5 mg 02/15/19 15:00 02/15/19 13:36 Lopressor PO 12.5 mg TID TAHIRA Administration Morphine Sulfate 2 mg 02/08/19 01:43 02/14/19 20:47 Morphine SLOW IVP 2 mg Q4H PRN Administration Severe Pain (7-10) Pantoprazole Sodium 40 mg 02/14/19 09:00 02/15/19 08:57 Protonix PO 40 mg DAILY TAHIRA Administration Potassium Chloride 10 meq 02/14/19 08:00 02/15/19 08:57 Klor-Con 10 PO 10 meq QAM-WM TAHIRA Administration Sodium Chloride 10 ml 02/08/19 09:00 02/15/19 09:02 Flush - Normal Saline IVF 10 ml Q12HR TAHIRA Administration Sodium Chloride 10 ml 02/08/19 04:05 02/08/19 05:13 Flush - Normal Saline IVF 10 ml PRN PRN Administration Saline Flush Sterile Water 1 ml 02/11/19 04:38 02/15/19 05:00 Bacteriostatic Water FS 1 ml PRN PRN Administration RECONSTITUTION Tramadol HCl 50 mg 02/14/19 23:16 02/15/19 05:51 Ultram PO 50 mg Q4H PRN Administration Mild-Moderate Pain (1-6) - Exam General Appearance: awake alert Eye: anicteric sclera Heart: irregular Heart - other findings: tachycardic Respiratory - other findings: fair air entry with transmitted sound Gastrointestinal: soft, non-tender, non-distended, normal bowel sounds Gastrointestinal - other findings: Hammond catheter in place Extremities: 1+ LE edema Neurological: cranial nerve grossly intact, no focal deficits Psychiatric: A&O x 3 Hosp A/P (1) Sepsis Code(s): A41.9 - SEPSIS, UNSPECIFIED ORGANISM Status: Acute (2) Proteus infection Code(s): A49.8 - OTHER BACTERIAL INFECTIONS OF UNSPECIFIED SITE Status: Acute (3) Bacteremia Code(s): R78.81 - BACTEREMIA Status: Acute (4) UTI (urinary tract infection) Status: Acute (5) Acute metabolic encephalopathy Code(s): G93.41 - METABOLIC ENCEPHALOPATHY Status: Acute (6) Nephrolithiasis Status: Acute (7) Hydronephrosis of left kidney Code(s): N13.30 - UNSPECIFIED HYDRONEPHROSIS Status: Acute (8) PAF (paroxysmal atrial fibrillation) Code(s): I48.0 - PAROXYSMAL ATRIAL FIBRILLATION Status: Chronic (9) Cholelithiases Code(s): K80.20 - CALCULUS OF GALLBLADDER W/O CHOLECYSTITIS W/O OBSTRUCTION Status: Acute (10) NICM (nonischemic cardiomyopathy) Code(s): I42.8 - OTHER CARDIOMYOPATHIES Status: Acute (11) Urinary retention Code(s): R33.9 - RETENTION OF URINE, UNSPECIFIED Status: Acute (12) COPD (chronic obstructive pulmonary disease) Status: Chronic Qualifiers: COPD type: COPD with acute exacerbation Qualified Code(s): J44.1 - Chronic obstructive pulmonary disease with (acute) exacerbation (13) Chronic respiratory failure with hypoxia and hypercapnia Code(s): J96.11 - CHRONIC RESPIRATORY FAILURE WITH HYPOXIA; J96.12 - CHRONIC RESPIRATORY FAILURE WITH HYPERCAPNIA Status: Chronic (14) Kyphoscoliosis Code(s): M41.9 - SCOLIOSIS, UNSPECIFIED Status: Chronic (15) Hypoalbuminemia Code(s): E88.09 - OTH DISORDERS OF PLASMA-PROTEIN METABOLISM, NEC Status: Acute - Plan Antibiotic changed to augmentin. Continue Eliquis and lasix. Definitive stone treatment after 2 weeks of antibiotics. Continue other treatments. Continue oral supplement. Patient can be discharged with hammond catheter For Discharge once cleared by cardiology and Pulm/crit D/w EPS Re tachycardia
[2019-02-15] MEDS ORDERED: Metoprolol Tartrate 25 MG TAB PO SCH (15:00)
--- NOTE | 2019-02-15 16:24 | PDOC.CPN ---
- Subjective Date: 02/15/19 Time: 08:00 Interval history: EP PROGRESS NOTE: 02/15/19 Seen as follow up for MAT and arrhytmia management/Tikosyn re-loading. In stepdown ICU now. feels better than last week. Breathing is easier and HR is occasionally rapid. Palpitations resolved. - Review of Systems General: denies: fever/chills, weight/appetite/sleep changes, night sweats, fatigue Respiratory: denies: cough, congestion, shortness of breath, exercise intolerance Cardiovascular: denies: chest pain, palpitation, edema, paroxysmal nocturnal dyspnea, orthopnea Gastrointestinal: denies: nausea, vomiting, diarrhea, constipation, abd pain, GI bleeding Musculoskeletal: denies: pain, tenderness, stiffness, swelling, arthritis/ arthralgias Neurological: denies: numbness, syncope, seizure, weakness - Objective Allergies/Adverse Reactions: Allergies Allergy/AdvReac Type Severity Reaction Status Date / Time ibuprofen [From Motrin] Allergy Verified 01/30/19 15:13 Visit Medications: Current Medications Albuterol/Ipratropium (Duoneb) 3 ml NEB [id number] [facility] Last Admin: 02/15/19 14:14 Dose: 3 ml Amoxicillin/Clavulanate Potassium (Augmentin) 875 mg PO Q12HR [facility] Last Admin: 02/15/19 08:57 Dose: 875 mg Apixaban (Eliquis) 2.5 mg PO BID [facility] Last Admin: 02/15/19 09:03 Dose: 2.5 mg Cholecalciferol (Vitamin D3) 5,000 units PO DAILY [facility] Last Admin: 02/15/19 08:56 Dose: 5,000 units Digoxin (Lanoxin) 0.125 mg PO DAILY [facility] Last Admin: 02/15/19 08:57 Dose: 0.125 mg Dofetilide (Tikosyn) 0.25 mg PO 0600,1800 [facility] Last Admin: 02/15/19 05:00 Dose: 0.25 mg Ferrous Sulfate (Feosol) 325 mg PO QAM-WM [facility] Last Admin: 02/15/19 08:57 Dose: 325 mg Furosemide (Lasix) 40 mg PO DAILY-AC [facility] Last Admin: 02/15/19 08:57 Dose: 40 mg Metoprolol Tartrate (Lopressor) 12.5 mg PO TID [facility] Last Admin: 02/15/19 13:36 Dose: 12.5 mg Morphine Sulfate (Morphine) 2 mg SLOW IVP Q4H PRN PRN Reason: Severe Pain (7-10) Last Admin: 02/14/19 20:47 Dose: 2 mg Ondansetron HCl (Zofran) 4 mg SLOW IVP Q8H PRN PRN Reason: Nausea/Vomiting Pantoprazole Sodium (Protonix) 40 mg PO DAILY [facility] Last Admin: 02/15/19 08:57 Dose: 40 mg Potassium Chloride (Klor-Con 10) 10 meq PO QAM-WM [facility] Last Admin: 02/15/19 08:57 Dose: 10 meq Prednisone (Prednisone) 20 mg PO QAM-WM [facility] Sodium Chloride (Flush - Normal Saline) 10 ml IVF Q12HR [facility] Last Admin: 02/15/19 09:02 Dose: 10 ml Sodium Chloride (Flush - Normal Saline) 10 ml IVF PRN PRN PRN Reason: Saline Flush Last Admin: 02/08/19 05:13 Dose: 10 ml Sterile Water (Bacteriostatic Water) 1 ml FS PRN PRN PRN Reason: RECONSTITUTION Last Admin: 02/15/19 05:00 Dose: 1 ml Tramadol HCl (Ultram) 50 mg PO Q4H PRN PRN Reason: Mild-Moderate Pain (1-6) Last Admin: 02/15/19 05:51 Dose: 50 mg Vital Signs & Weight: Vital Signs Temp Pulse Resp Pulse Ox 02/15/19 16:00 99.4 F 02/15/19 14:14 103 H 20 100 02/15/19 11:40 97.2 F L 02/15/19 11:25 97.3 F L 02/15/19 10:48 109 H 18 100 02/15/19 08:57 117 H 02/15/19 08:04 117 H 20 96 02/15/19 08:00 98 02/15/19 07:00 97.1 F L Weight 153 lb 0.013 oz - Physical Exam General: alert & oriented x3, no apparent distress HEENT: mucus membranes moist, normocephaly Neck: supple neck, midline trachea, no JVD/HJR, no masses, no bruit, no lymphadenopathy, no thromegaly Cardiac: regular rate Lungs: decreased breath sounds Neuro: grossly intact Abdomen: unremarkable, active bowel sounds - Labs Result Diagrams: 02/15/19 05:00 02/15/19 05:00 - Telemetry Sinus rhythms and dysrhythmias: sinus rhythm (MAT, occasional heart racing.) - Assessment/Plan Assessment/Plan: Mr. Rosa is a pleasant 78-year-old man with prior history of advanced COPD; kyphoscoliosis; cardiomyopathy, nonischemic; recurrent atrial arrhythmias; who presented with urosepsis, which is likely obstructive. He underwent a cystoscopy and left ureteral stent placement. He also had been sent for cultures and antibiotics are planned. Currently, on cefepime. His urosepsis is improving. While in severely septic condition, his atrial fibrillation recurred especially hence his antiarrhythmic agent Tikosyn was on hold. On the other hand, with digoxin and fluid repletion and temperature control, his heart rates became more normalized. Blood pressures remain borderline. Plan/Recommendations: 1. Afib/MAT, Improving; rate controlled - Digoxin 125mcg daily -Changing coreg to metoprolol succinate to better control tachycardia episodes in light of borderline hypotension -Continue current tikosyn dose. - avoid QTc prolonging anbx and medications. 3rd gen cephalosporin/cefepime- ok. 2. Chronic anticoagulation with apixaban, - currently on hold d/t mild hematuria - Resume anticoagulation YAHIR but need urology to approve first 4. ICD function dual-chamber adequate. -No new issues. Continue monitoring. EP signing off. Please arrange follow up in 6 weeks. Please call if questions.
[2019-02-16 06:15] LABS: Anion Gap 12 mmol/L (10-20); BUN (Urea Nitrogen) 26 mg/dL (8.4-25.7); Calc. Creatinine Clearance 85 mL/min (70-130); Calcium 8.9 mg/dL (7.8-10.44); Carbon Dioxide 34 mmol/L (23-31); Chloride 98 mmol/L (98-107); Estimated GFR-MDRD Greater than 90; Glucose 109 mg/dL (83-110); Magnesium 1.8 mg/dL (1.6-2.6); Potassium 3.2 mmol/L (3.5-5.1); Sodium 141 mmol/L (136-145)
[2019-02-16 06:19] LABS: Phosphorus 2.3 mg/dL (2.3-4.7); Uric Acid 4.8 mg/dL (3.5-7.2)
[2019-02-16] MEDS: Furosemide 40 MG TAB PO SCH (06:40)
[2019-02-16] MEDS: Dofetilide 0.125 MG CAP PO SCH ×2 (06:40→17:09)
[2019-02-16] MEDS ORDERED: Potassium Chloride 20 MEQ TAB PO SCH ×2 (08:00→12:00)
[2019-02-16] MEDS: Potassium Chloride 10 MEQ TAB PO SCH ×3 (08:54→20:39)
[2019-02-16] MEDS: Amoxicillin/Potassium Clav 875 MG TAB PO SCH ×2 (08:54→20:39)
[2019-02-16] MEDS: Ferrous Sulfate 325 MG TAB PO SCH (08:55)
[2019-02-16] MEDS: predniSONE 20 MG TAB PO SCH (08:55)
[2019-02-16] MEDS: Digoxin 0.125 MG TAB PO SCH (08:57)
[2019-02-16] MEDS: Apixaban 2.5 MG TAB PO SCH ×2 (09:04→20:39)
[2019-02-16] MEDS: traMADol HCl 50 MG TAB PO PRN ×3 (09:08→23:15)
--- NOTE | 2019-02-16 09:54 | EKG ---
Test Reason : TIMED Blood Pressure : / mmHG Vent. Rate : 104 BPM Atrial Rate : 104 BPM P-R Int : 158 ms QRS Dur : 114 ms QT Int : 362 ms P-R-T Axes : 078 -47 205 degrees QTc Int : 476 ms Sinus rhythm with multifocal PVC's Left axis deviation Right bundle branch block Abnormal ECG Confirmed by NICKO PERKINS, MADELINE ([id number]) on 02/16/2019 9:53:59 AM Referred By: [facility] Confirmed By:MADELINE MAHARAJ MD
[2019-02-16] MEDS: Ondansetron PF 4 MG/2 ML Vial SLOW IVP PRN (12:55)
--- NOTE | 2019-02-16 13:24 | PDOC.CPN ---
- Subjective Date: 02/16/19 Time: 13:22 Interval history: EP PROGRESS NOTE: 02/16/19 Seen as follow up for MAT and arrhythmia management/Tikosyn re-loading. In stepdown ICU now. feels better than last week.Bipap as needed and HR is more rapid today. Feels weak and tired. - Review of Systems General: reports: fatigue. denies: fever/chills, weight/appetite/sleep changes , night sweats Respiratory: reports: shortness of breath. denies: cough, congestion, exercise intolerance Cardiovascular: denies: chest pain, palpitation, edema, paroxysmal nocturnal dyspnea, orthopnea Gastrointestinal: denies: nausea, vomiting, diarrhea, constipation, abd pain, GI bleeding Musculoskeletal: denies: pain, tenderness, stiffness, swelling, arthritis/ arthralgias Neurological: denies: syncope, weakness - Objective Allergies/Adverse Reactions: Allergies Allergy/AdvReac Type Severity Reaction Status Date / Time ibuprofen [From Motrin] Allergy Verified 01/30/19 15:13 Visit Medications: Current Medications Albuterol/Ipratropium (Duoneb) 3 ml NEB [id number] [facility] Last Admin: 02/16/19 10:33 Dose: 3 ml Amoxicillin/Clavulanate Potassium (Augmentin) 875 mg PO Q12HR [facility] Last Admin: 02/16/19 08:54 Dose: 875 mg Apixaban (Eliquis) 2.5 mg PO BID [facility] Last Admin: 02/16/19 09:04 Dose: 2.5 mg Cholecalciferol (Vitamin D3) 5,000 units PO DAILY [facility] Last Admin: 02/16/19 08:54 Dose: 5,000 units Digoxin (Lanoxin) 0.125 mg PO DAILY [facility] Last Admin: 02/16/19 08:57 Dose: 0.125 mg Dofetilide (Tikosyn) 0.25 mg PO 0600,1800 [facility] Last Admin: 02/16/19 06:40 Dose: 0.25 mg Ferrous Sulfate (Feosol) 325 mg PO QAM-WM [facility] Last Admin: 02/16/19 08:55 Dose: 325 mg Furosemide (Lasix) 40 mg PO DAILY-AC [facility] Last Admin: 02/16/19 06:40 Dose: 40 mg Metoprolol Succinate (Toprol Xl) 12.5 mg PO BID [facility] Last Admin: 02/16/19 08:57 Dose: 12.5 mg Morphine Sulfate (Morphine) 2 mg SLOW IVP Q4H PRN PRN Reason: Severe Pain (7-10) Last Admin: 02/14/19 20:47 Dose: 2 mg Ondansetron HCl (Zofran) 4 mg SLOW IVP Q8H PRN PRN Reason: Nausea/Vomiting Pantoprazole Sodium (Protonix) 40 mg PO DAILY [facility] Last Admin: 02/16/19 08:55 Dose: 40 mg Potassium Chloride (Klor-Con 10) 20 meq PO BID [facility] Last Admin: 02/16/19 08:54 Dose: Not Given Potassium Chloride (K-Dur) 40 meq PO 1200 [facility] Stop: 02/16/19 14:00 Last Admin: 02/16/19 12:55 Dose: 40 meq Prednisone (Prednisone) 20 mg PO QAM-WM [facility] Last Admin: 02/16/19 08:55 Dose: 20 mg Sodium Chloride (Flush - Normal Saline) 10 ml IVF Q12HR [facility] Last Admin: 02/16/19 08:56 Dose: 10 ml Sodium Chloride (Flush - Normal Saline) 10 ml IVF PRN PRN PRN Reason: Saline Flush Last Admin: 02/08/19 05:13 Dose: 10 ml Sterile Water (Bacteriostatic Water) 1 ml FS PRN PRN PRN Reason: RECONSTITUTION Last Admin: 02/15/19 05:00 Dose: 1 ml Tramadol HCl (Ultram) 50 mg PO Q4H PRN PRN Reason: Mild-Moderate Pain (1-6) Last Admin: 02/16/19 09:08 Dose: 50 mg Vital Signs & Weight: Vital Signs Temp Pulse Resp Pulse Ox 02/16/19 11:08 99.3 F 02/16/19 10:33 107 H 20 93 L 02/16/19 08:57 111 H 02/16/19 07:43 111 H 18 93 L 02/16/19 07:30 98.5 F 02/16/19 04:00 97.5 F L 02/16/19 02:54 95 Weight 156 lb 9.581 oz - CHADS-VASc Congestive heart failure: 1 Age >75: 2 Vascular disease: 1 Risk Score: 4 - Quality Measures Condition: Atrial Fibrillation/Flutter (hx or current) CV meds: Anticoagulant: Yes - Physical Exam General: alert & oriented x3 HEENT: normocephaly Neck: supple neck, midline trachea Cardiac: irregularly regular (irregularly irregular) Lungs: decreased breath sounds (on CPAP. no crackels) Neuro: grossly intact Extremities: no edema - Labs Result Diagrams: 02/15/19 05:00 02/16/19 05:15 - Telemetry Sinus rhythms and dysrhythmias: other (MAT. occasional flutter but mostly MAT HR 80-140) - Problem (1) PAF (paroxysmal atrial fibrillation) Code(s): I48.0 - PAROXYSMAL ATRIAL FIBRILLATION - Assessment/Plan Assessment/Plan: Mr. Rosa is a pleasant 78-year-old man with prior history of advanced COPD; kyphoscoliosis; cardiomyopathy, nonischemic; recurrent atrial arrhythmias; who presented with urosepsis, which is likely obstructive. He underwent a cystoscopy and left ureteral stent placement. He also had been sent for cultures and antibiotics are planned. Currently, on cefepime. His urosepsis is improving. While in severely septic condition, his atrial fibrillation recurred especially hence his antiarrhythmic agent Tikosyn was on hold. On the other hand, with digoxin and fluid repletion and temperature control, his heart rates became more normalized but have now elevated once again. Plan/Recommendations: 1. Afib/MAT, Improving; rates moderately controlled - Digoxin 125mcg daily -Changing coreg to metoprolol succinate to better control tachycardia episodes in light of borderline hypotension -Continue current tikosyn dose. - avoid QTc prolonging anbx and medications. 3rd gen cephalosporin/cefepime- ok. 2. Chronic anticoagulation with apixaban, - currently on hold d/t mild hematuria - urology ok with anticoagulation at this time 4. ICD function dual-chamber adequate. -No new issues. Continue monitoring. 5. Sepsis -s/p ureteral stent and impacted ureteral stone. Possible op date next week Tuesday to address stones for which OAC would be interrupted. Blood pressures remain borderline. I question if he may be intravascularly depleted.I will check a dig level and possibly increase his dose to 250mg daily. He cannot tolerate higher doses of betablockers. He is not a candidate for ablation for either PVAI or AVJ. His SVC was narrow and placing a 2 wire ICD was not without difficulty so upgrading to a BiV system is not an option. We will work to optimize rate control and continue antiarrhythmic support with Tikosyn at this time while his numerous other medical issues are being addressed.
--- NOTE | 2019-02-16 14:10 | PDOC.HOSPP ---
- Subjective Encounter Date: 02/16/19 Encounter Time: 10:09 Subjective: 78 y/o male with severe kyphoscoliosis, NICM s/p AICD, chronic respiratory failure from COPd on home oxygen admitted with left flank pain associated with nausea and vomiting. S/p cystoscopy with stent placement on the left. Still tachycardic and complaining of generalized weakness. No fever or vomiting. - Objective Vital Signs & Weight: Vital Signs (12 hours) Temp Pulse Resp Pulse Ox 02/16/19 11:08 99.3 F 02/16/19 10:33 107 H 20 93 L 02/16/19 08:57 111 H 02/16/19 08:00 92 L 02/16/19 07:43 111 H 18 93 L 02/16/19 07:30 98.5 F 02/16/19 04:00 97.5 F L 02/16/19 02:54 95 Weight Weight 156 lb 9.581 oz Most Recent Monitor Data Heart Rate from ECG 96 NIBP 104/49 NIBP BP-Mean 67 Respiration from ECG 24 SpO2 94 I&O: 02/15/19 02/16/19 02/17/19 06:59 06:59 06:59 Intake Total 2370 910 Output Total 2625 850 Balance -255 60 Result Diagrams: 02/15/19 05:00 02/16/19 05:15 Hospitalist ROS - Medication Medications: Active Medications Generic Name Dose Route Start Last Admin Trade Name Freq PRN Reason Stop Dose Admin Albuterol/Ipratropium 3 ml 02/11/19 18:30 02/16/19 10:33 Duoneb NEB 3 ml [id number] [facility] Administration Amoxicillin/Clavulanate Potassium 875 mg 02/15/19 09:00 02/16/19 08:54 Augmentin PO 875 mg Q12HR [facility] Administration Apixaban 2.5 mg 02/14/19 21:00 02/16/19 09:04 Eliquis PO 2.5 mg BID [facility] Administration Cholecalciferol 5,000 units 02/11/19 09:00 02/16/19 08:54 Vitamin D3 PO 5,000 units DAILY [facility] Administration Digoxin 0.125 mg 02/13/19 09:00 02/16/19 08:57 Lanoxin PO 0.125 mg DAILY [facility] Administration Dofetilide 0.25 mg 02/09/19 18:00 02/16/19 06:40 Tikosyn PO 0.25 mg 0600,1800 [facility] Administration Ferrous Sulfate 325 mg 02/14/19 08:00 02/16/19 08:55 Feosol PO 325 mg QAM-WM [facility] Administration Furosemide 40 mg 02/14/19 07:30 02/16/19 06:40 Lasix PO 40 mg DAILY-AC [facility] Administration Metoprolol Succinate 12.5 mg 02/15/19 21:00 02/16/19 08:57 Toprol Xl PO 12.5 mg BID [facility] Administration Morphine Sulfate 2 mg 02/08/19 01:43 02/14/19 20:47 Morphine SLOW IVP 2 mg Q4H PRN Administration Severe Pain (7-10) Pantoprazole Sodium 40 mg 02/14/19 09:00 02/16/19 08:55 Protonix PO 40 mg DAILY [facility] Administration Potassium Chloride 20 meq 02/16/19 09:00 02/16/19 08:54 Klor-Con 10 PO Not Given BID [facility] Prednisone 20 mg 02/16/19 08:00 02/16/19 08:55 Prednisone PO 20 mg QAM-WM [facility] Administration Sodium Chloride 10 ml 02/08/19 09:00 02/16/19 08:56 Flush - Normal Saline IVF 10 ml Q12HR [facility] Administration Sodium Chloride 10 ml 02/08/19 04:05 02/08/19 05:13 Flush - Normal Saline IVF 10 ml PRN PRN Administration Saline Flush Sterile Water 1 ml 02/11/19 04:38 02/15/19 05:00 Bacteriostatic Water FS 1 ml PRN PRN Administration RECONSTITUTION Tramadol HCl 50 mg 02/14/19 23:16 02/16/19 09:08 Ultram PO 50 mg Q4H PRN Administration Mild-Moderate Pain (1-6) - Exam General Appearance: awake alert ENT: normocephalic atraumatic Heart: irregular Heart - other findings: tachycardic Respiratory: no ronchi Respiratory - other findings: fair air entry with some transmitted sound Gastrointestinal: soft, non-tender, non-distended, normal bowel sounds Extremities - other findings: trace bilateral leg edema Neurological: cranial nerve grossly intact, no focal deficits Musculoskeletal: generalized weakness, diffuse muscle atrophy Psychiatric: A&O x 3 Hosp A/P (1) PAF (paroxysmal atrial fibrillation) Code(s): I48.0 - PAROXYSMAL ATRIAL FIBRILLATION Status: Chronic (2) Sepsis Code(s): A41.9 - SEPSIS, UNSPECIFIED ORGANISM Status: Acute (3) Proteus infection Code(s): A49.8 - OTHER BACTERIAL INFECTIONS OF UNSPECIFIED SITE Status: Acute (4) Bacteremia Code(s): R78.81 - BACTEREMIA Status: Acute (5) UTI (urinary tract infection) Status: Acute (6) Acute metabolic encephalopathy Code(s): G93.41 - METABOLIC ENCEPHALOPATHY Status: Acute (7) Nephrolithiasis Status: Acute (8) Hydronephrosis of left kidney Code(s): N13.30 - UNSPECIFIED HYDRONEPHROSIS Status: Acute (9) Cholelithiases Code(s): K80.20 - CALCULUS OF GALLBLADDER W/O CHOLECYSTITIS W/O OBSTRUCTION Status: Acute (10) NICM (nonischemic cardiomyopathy) Code(s): I42.8 - OTHER CARDIOMYOPATHIES Status: Acute (11) Urinary retention Code(s): R33.9 - RETENTION OF URINE, UNSPECIFIED Status: Acute (12) COPD (chronic obstructive pulmonary disease) Status: Chronic Qualifiers: COPD type: COPD with acute exacerbation Qualified Code(s): J44.1 - Chronic obstructive pulmonary disease with (acute) exacerbation (13) Kyphoscoliosis Code(s): M41.9 - SCOLIOSIS, UNSPECIFIED Status: Chronic (14) Hypoalbuminemia Code(s): E88.09 - OTH DISORDERS OF PLASMA-PROTEIN METABOLISM, NEC Status: Acute (15) Physical deconditioning Code(s): R53.81 - OTHER MALAISE Status: Acute (16) Hypokalemia Code(s): E87.6 - HYPOKALEMIA Status: Acute (17) Acute on chronic respiratory failure Code(s): J96.20 - ACUTE AND CHR RESP FAILURE, UNSP W HYPOXIA OR HYPERCAPNIA Status: Acute (18) Acute on chronic systolic ACC/AHA stage C congestive heart failure Code(s): I50.23 - ACUTE ON CHRONIC SYSTOLIC (CONGESTIVE) HEART FAILURE Status : Acute - Plan Replete serum potassium to get it above 4 in view of arrhythmia. get serum magneseium and replete as needed Continue Eliquis and antibiotics. CHF treatment and diuretic as per cardiology. tachyarrythmia treatment as per EPS Definitive stone treatment after 2 weeks of antibiotics. Continue other treatments. Continue oral supplement. hammond catheter to continue Follow Hb, electrolytes and renal function.
[2019-02-16 14:14] LABS: Digoxin 0.87 ng/mL (0.8-2.0)
--- NOTE | 2019-02-16 19:30 | PRG ---
DATE OF SERVICE: 02/16/2019 SUBJECTIVE: Jordy Rosa's mental status is waxing and waning. He is in no distress today. OBJECTIVE: VITAL SIGNS: Heart rate is 110, respiratory rate is in 20s, oximetry is 90% on room air, blood pressure . LUNGS: Remarkable for end-expiratory wheezes. HEART: Regular rhythm. ABDOMEN: Soft. LABORATORY DATA: White count 7.9, hemoglobin 9.2, platelets 225. Sodium 141, potassium 3.2, chloride 98, bicarb 34, BUN 26, creatinine 0.73. IMPRESSION: 1. Deconditioning, which is biggest factor this may lead to his eventual failure to survive. 2. Multifocal atrial tachycardia is not really a clinical issue. 3. Encephalopathy, likely just related to being in the intermediate care unit in the hospital and being septic on arrival. 4. Proteus bacteremia secondary to his stone, status post emergent stent placement. 5. Asthma. 6. Kyphoscoliosis, which creates him with respiratory issues. He does not have COPD. 7. Nonischemic cardiomyopathy. RECOMMENDATIONS: Recommendations were made by the construction millwright. Continue supportive care. Job ID: [id number]
[2019-02-17 04:53] LABS: Phosphorus 2.2 mg/dL (2.3-4.7)
[2019-02-17 04:54] LABS: Anion Gap 10 mmol/L (10-20); BUN (Urea Nitrogen) 23 mg/dL (8.4-25.7); Calc. Creatinine Clearance 73 mL/min (70-130); Calcium 8.8 mg/dL (7.8-10.44); Carbon Dioxide 35 mmol/L (23-31); Chloride 99 mmol/L (98-107); Estimated GFR-MDRD 86; Glucose 105 mg/dL (83-110); Magnesium 1.9 mg/dL (1.6-2.6); Potassium 3.9 mmol/L (3.5-5.1); Sodium 140 mmol/L (136-145)
[2019-02-17] MEDS: Dofetilide 0.125 MG CAP PO SCH ×2 (06:48→17:20)
[2019-02-17] MEDS: Digoxin 0.125 MG TAB PO SCH (09:41)
[2019-02-17] MEDS: Potassium Chloride 10 MEQ TAB PO SCH ×2 (09:42→21:39)
[2019-02-17] MEDS: predniSONE 20 MG TAB PO SCH (09:42)
[2019-02-17] MEDS: Ferrous Sulfate 325 MG TAB PO SCH (09:43)
[2019-02-17] MEDS: Apixaban 2.5 MG TAB PO SCH ×2 (09:43→21:38)
[2019-02-17] MEDS: Amoxicillin/Potassium Clav 875 MG TAB PO SCH ×2 (09:43→21:39)
[2019-02-17] MEDS: Furosemide 40 MG TAB PO SCH (09:43)
[2019-02-17] MEDS: traMADol HCl 50 MG TAB PO PRN ×2 (12:09→17:20)
--- NOTE | 2019-02-17 13:31 | PDOC.HOSPP ---
- Subjective Encounter Date: 02/17/19 Encounter Time: 13:29 Subjective: 78 y/o male with severe kyphoscoliosis, NICM s/p AICD, chronic respiratory failure from COPd on home oxygen admitted with left flank pain associated with nausea and vomiting. S/p cystoscopy with stent placement on the left. Still tachycardic and with generalized weakness. No fever or vomiting. - Objective Vital Signs & Weight: Vital Signs (12 hours) Temp Pulse Resp Pulse Ox 02/17/19 10:59 94 20 94 L 02/17/19 10:45 98.5 F 02/17/19 09:41 112 H 02/17/19 08:00 99 02/17/19 07:27 98.6 F 02/17/19 07:18 112 H 22 H 95 02/17/19 03:42 99.1 F 02/17/19 02:30 110 H 20 96 Weight Weight 146 lb 6.191 oz Most Recent Monitor Data Heart Rate from ECG 112 NIBP 95/59 NIBP BP-Mean 71 Respiration from ECG 31 SpO2 93 I&O: 02/16/19 02/17/19 02/18/19 06:59 06:59 06:59 Intake Total 910 730 Output Total 850 1975 Balance 60 -1245 Result Diagrams: 02/15/19 05:00 02/17/19 04:16 Hospitalist ROS - Medication Medications: Active Medications Generic Name Dose Route Start Last Admin Trade Name Freq PRN Reason Stop Dose Admin Albuterol/Ipratropium 3 ml 02/11/19 18:30 02/17/19 10:59 Duoneb NEB 3 ml [id number] [facility] Administration Amoxicillin/Clavulanate Potassium 875 mg 02/15/19 09:00 02/17/19 09:43 Augmentin PO 875 mg Q12HR [facility] Administration Apixaban 2.5 mg 02/14/19 21:00 02/17/19 09:43 Eliquis PO 2.5 mg BID [facility] Administration Cholecalciferol 5,000 units 02/11/19 09:00 02/17/19 09:41 Vitamin D3 PO 5,000 units DAILY [facility] Administration Digoxin 0.125 mg 02/13/19 09:00 02/17/19 09:41 Lanoxin PO 0.125 mg DAILY [facility] Administration Dofetilide 0.25 mg 02/09/19 18:00 02/17/19 06:48 Tikosyn PO 0.25 mg 0600,1800 [facility] Administration Ferrous Sulfate 325 mg 02/14/19 08:00 02/17/19 09:43 Feosol PO 325 mg QAM-WM [facility] Administration Furosemide 40 mg 02/14/19 07:30 02/17/19 09:43 Lasix PO 40 mg DAILY-AC [facility] Administration Metoprolol Succinate 12.5 mg 02/15/19 21:00 02/17/19 09:43 Toprol Xl PO 12.5 mg BID [facility] Administration Morphine Sulfate 2 mg 02/08/19 01:43 02/14/19 20:47 Morphine SLOW IVP 2 mg Q4H PRN Administration Severe Pain (7-10) Pantoprazole Sodium 40 mg 02/14/19 09:00 02/17/19 09:42 Protonix PO 40 mg DAILY [facility] Administration Potassium Chloride 20 meq 02/16/19 09:00 02/17/19 09:42 Klor-Con 10 PO 20 meq BID [facility] Administration Prednisone 20 mg 02/16/19 08:00 02/17/19 09:42 Prednisone PO 20 mg QAM-WM [facility] Administration Sodium Chloride 10 ml 02/08/19 09:00 02/17/19 09:48 Flush - Normal Saline IVF 10 ml Q12HR [facility] Administration Sodium Chloride 10 ml 02/08/19 04:05 02/08/19 05:13 Flush - Normal Saline IVF 10 ml PRN PRN Administration Saline Flush Sterile Water 1 ml 02/11/19 04:38 02/15/19 05:00 Bacteriostatic Water FS 1 ml PRN PRN Administration RECONSTITUTION Tramadol HCl 50 mg 02/14/19 23:16 02/17/19 12:09 Ultram PO 50 mg Q4H PRN Administration Mild-Moderate Pain (1-6) - Exam General Appearance: awake alert Eye: anicteric sclera ENT: normocephalic atraumatic Heart: irregular Heart - other findings: tachycardic Respiratory: no ronchi Respiratory - other findings: fair air entry bilaterally Gastrointestinal: soft, non-tender, non-distended, normal bowel sounds Extremities: no edema Neurological: cranial nerve grossly intact, no focal deficits Musculoskeletal: generalized weakness, diffuse muscle atrophy Hosp A/P (1) PAF (paroxysmal atrial fibrillation) Code(s): I48.0 - PAROXYSMAL ATRIAL FIBRILLATION Status: Chronic (2) Sepsis Code(s): A41.9 - SEPSIS, UNSPECIFIED ORGANISM Status: Acute (3) Proteus infection Code(s): A49.8 - OTHER BACTERIAL INFECTIONS OF UNSPECIFIED SITE Status: Acute (4) Bacteremia Code(s): R78.81 - BACTEREMIA Status: Acute (5) UTI (urinary tract infection) Status: Acute (6) Acute metabolic encephalopathy Code(s): G93.41 - METABOLIC ENCEPHALOPATHY Status: Acute (7) Nephrolithiasis Status: Acute (8) Hydronephrosis of left kidney Code(s): N13.30 - UNSPECIFIED HYDRONEPHROSIS Status: Acute (9) Cholelithiases Code(s): K80.20 - CALCULUS OF GALLBLADDER W/O CHOLECYSTITIS W/O OBSTRUCTION Status: Acute (10) NICM (nonischemic cardiomyopathy) Code(s): I42.8 - OTHER CARDIOMYOPATHIES Status: Acute (11) Urinary retention Code(s): R33.9 - RETENTION OF URINE, UNSPECIFIED Status: Acute (12) COPD (chronic obstructive pulmonary disease) Status: Chronic Qualifiers: COPD type: COPD with acute exacerbation Qualified Code(s): J44.1 - Chronic obstructive pulmonary disease with (acute) exacerbation (13) Kyphoscoliosis Code(s): M41.9 - SCOLIOSIS, UNSPECIFIED Status: Chronic (14) Hypoalbuminemia Code(s): E88.09 - [facility] DISORDERS OF PLASMA-PROTEIN METABOLISM, NEC Status: Acute (15) Physical deconditioning Code(s): R53.81 - OTHER MALAISE Status: Acute (16) Hypokalemia Code(s): E87.6 - HYPOKALEMIA Status: Acute (17) Acute on chronic respiratory failure Code(s): J96.20 - ACUTE AND CHR RESP FAILURE, UNSP W HYPOXIA OR HYPERCAPNIA Status: Acute (18) Acute on chronic systolic ACC/AHA stage C congestive heart failure Code(s): I50.23 - ACUTE ON CHRONIC SYSTOLIC (CONGESTIVE) HEART FAILURE Status : Acute - Plan Continue potassium supplementation with continued diuretic therapy Continue Eliquis and antibiotics. CHF treatment and diuretic as per cardiology. tachyarrythmia treatment as per EPS Definitive stone treatment after 2 weeks of antibiotics. Continue other treatments. Continue oral supplement. Bernabe catheter to continue as per urology
--- NOTE | 2019-02-17 22:21 | PRG ---
DATE OF SERVICE: 02/17/2019 SUBJECTIVE: Jordy Rosa has waxing and waning mental status. He today, however, and answered all my questions quickly. We discussed end-of-life issues. He informed me he did never want to be placed on mechanical ventilation or resuscitated. He started talking to his daughter about end-of-life issues as well. OBJECTIVE: VITAL SIGNS: Heart rate is 106, respiratory rate is 23, oximetry is 100%, blood pressure 109/44. LUNGS: Clear. HEART: Regular rhythm. ABDOMEN: Soft. LABORATORY DATA: Electrolytes today are normal with the exception of bicarb 35, BUN 23, creatinine is 0.86. IMPRESSION: 1. Proteus bacteremia secondary to ureteral obstruction, status post stent placement emergently. 2. Chronic respiratory insufficiency secondary to severe kyphosis and scoliosis, which he has had his entire adult life. 3. Chronic persistent asthma that is clinically stable at this time. 4. Atrial fibrillation, multifocal atrial tachycardia and atrial rhythm disturbances being followed by electrophysiology. There is nothing other than medical management that is really available. PLAN: Family agrees that he should be a do not resuscitate status, this order has been entered. In my opinion, he could be transferred to medical bed tomorrow. I had approximately 30 minute conversation with his daughter, who I know quite well about all of these issues and she is in agreement with the DNR and we will . Job ID: [id number]
[2019-02-18 05:33] LABS: Hemoglobin 8.8 g/dL (14.0-18.0); Mean Corpuscular HGB CONC 31.3 g/dL (32.0-36.0); Mean Corpuscular Hemoglobin 29.2 pg (27.0-31.0); Mean Corpuscular Volume 93.5 fL (78.0-98.0); Mean Platelet Volume 9.1 fL (7.4-10.4); Platelet Count 228 thou/uL (130-400); Red Blood Cell (RBC) Count 3.01 mill/uL (4.70-6.10); White Blood Cell (WBC) Count 11.8 thou/uL (4.8-10.8)
[2019-02-18] MEDS: Dofetilide 0.125 MG CAP PO SCH ×2 (05:59→19:07)
[2019-02-18] MEDS: traMADol HCl 50 MG TAB PO PRN ×2 (06:06→23:50)
[2019-02-18 06:20] LABS: Anion Gap 11 mmol/L (10-20); BUN (Urea Nitrogen) 17 mg/dL (8.4-25.7); Calc. Creatinine Clearance 96 mL/min (70-130); Calcium 8.9 mg/dL (7.8-10.44); Carbon Dioxide 31 mmol/L (23-31); Chloride 104 mmol/L (98-107); Estimated GFR-MDRD Greater than 90; Glucose 89 mg/dL (83-110); Magnesium 1.9 mg/dL (1.6-2.6); Potassium 3.8 mmol/L (3.5-5.1); Sodium 142 mmol/L (136-145)
[2019-02-18] MEDS: Digoxin 0.125 MG TAB PO SCH ×2 (09:52→10:41)
[2019-02-18] MEDS: Potassium Chloride 10 MEQ TAB PO SCH ×3 (09:55→23:52)
[2019-02-18] MEDS: Ferrous Sulfate 325 MG TAB PO SCH ×2 (09:56→10:40)
[2019-02-18] MEDS: predniSONE 20 MG TAB PO SCH ×2 (09:56→10:40)
[2019-02-18] MEDS: Furosemide 40 MG TAB PO SCH ×2 (09:56→10:40)
[2019-02-18] MEDS: Apixaban 2.5 MG TAB PO SCH ×3 (09:58→23:52)
[2019-02-18] MEDS: Amoxicillin/Potassium Clav 875 MG TAB PO SCH ×3 (09:58→23:52)
[2019-02-18] MEDS ORDERED: Metoprolol Tartrate 5 MG/5 ML VIAL IVP SCH (10:45)
--- NOTE | 2019-02-18 10:47 | PDOC.HOSPP ---
- Subjective Encounter Date: 02/18/19 Encounter Time: 10:44 Subjective: the patient is confused, refused to take the po medications, HR increased. - Objective Vital Signs & Weight: Vital Signs (12 hours) Temp Pulse Resp Pulse Ox 02/18/19 10:41 120 H 02/18/19 08:04 94 24 H 96 02/18/19 07:52 97 02/18/19 07:11 98.5 F 02/18/19 05:22 99 F 02/18/19 02:14 101 H 30 H 94 L Weight Weight 145 lb 4.554 oz Most Recent Monitor Data Heart Rate from ECG 105 NIBP 92/48 NIBP BP-Mean 62 Respiration from ECG 25 SpO2 93 I&O: 02/17/19 02/18/19 02/19/19 06:59 06:59 06:59 Intake Total 730 730 Output Total 7481 4673 Balance -9793 -7829 Result Diagrams: 02/18/19 05:02 02/18/19 05:03 Hospitalist ROS - Medication Medications: Active Medications Generic Name Dose Route Start Last Admin Trade Name Freq PRN Reason Stop Dose Admin Albuterol/Ipratropium 3 ml 02/09/19 10:30 02/11/19 14:24 Duoneb NEB 3 ml [id number] [facility] Administration Albuterol/Ipratropium 3 ml 02/11/19 18:30 02/18/19 08:04 Duoneb NEB 3 ml [id number] [facility]A Administration Amoxicillin/Clavulanate Potassium 875 mg 02/15/19 09:00 02/18/19 10:39 Augmentin PO Not Given Q12HR [facility] Apixaban 2.5 mg 02/14/19 21:00 02/18/19 10:41 Eliquis PO Not Given BID [facility] Cholecalciferol 5,000 units 02/11/19 09:00 02/18/19 10:41 Vitamin D3 PO Not Given DAILY [facility] Digoxin 0.125 mg 02/13/19 09:00 02/18/19 10:41 Lanoxin PO Not Given DAILY [facility] Dofetilide 0.25 mg 02/09/19 18:00 02/18/19 05:59 Tikosyn PO 0.25 mg 0600,1800 [facility] Administration Ferrous Sulfate 325 mg 02/14/19 08:00 02/18/19 10:40 Feosol PO Not Given QAM-WM [facility] Furosemide 40 mg 02/14/19 07:30 02/18/19 10:40 Lasix PO Not Given DAILY-AC [facility] Metoprolol Succinate 12.5 mg 02/15/19 21:00 02/18/19 09:55 Toprol Xl PO Not Given BID [facility] Morphine Sulfate 2 mg 02/08/19 01:43 02/14/19 20:47 Morphine SLOW IVP 2 mg Q4H PRN Administration Severe Pain (7-10) Pantoprazole Sodium 40 mg 02/14/19 09:00 02/18/19 10:41 Protonix PO Not Given DAILY [facility] Potassium Chloride 20 meq 02/16/19 09:00 02/18/19 10:41 Klor-Con 10 PO Not Given BID [facility] Prednisone 20 mg 02/16/19 08:00 02/18/19 10:40 Prednisone PO Not Given QAM-WM [facility] Sodium Chloride 10 ml 02/08/19 09:00 02/18/19 09:58 Flush - Normal Saline IVF 10 ml Q12HR [facility] Administration Sodium Chloride 10 ml 02/08/19 04:05 02/08/19 05:13 Flush - Normal Saline IVF 10 ml PRN PRN Administration Saline Flush Sterile Water 1 ml 02/11/19 04:38 02/15/19 05:00 Bacteriostatic Water FS 1 ml PRN PRN Administration RECONSTITUTION Tramadol HCl 50 mg 02/14/19 23:16 02/18/19 06:06 Ultram PO 50 mg Q4H PRN Administration Mild-Moderate Pain (1-6) - Exam General Appearance: NAD, awake alert, ill appearing Eye: PERRL, anicteric sclera, scleral icterus ENT: normocephalic atraumatic, no oropharyngeal lesions, moist mucosa, dry oral mucosa Neck: supple, symmetric, no JVD, no thyromegaly, no lymphadenopathy, no carotid bruit, JVD Heart: RRR, no murmur, no gallops, no rubs, normal peripheral pulses, irregular , diminshed peripheral pulses, murmur present, II/IV, III/IV Respiratory: CTAB, no wheezes, no rales, no ronchi, normal chest expansion, no tachypnea, normal percussion, rales, rhonchi, tachypneic, wheezes Gastrointestinal: soft, non-tender, non-distended, normal bowel sounds, no palpable masses, no hepatomegaly, no splenomegaly, no bruit, no guarding, no rigidity, tender to palpation, distended, diminished bowl sounds, voluntary guarding Hosp A/P (1) Tachycardia Code(s): R00.0 - TACHYCARDIA, UNSPECIFIED Status: Acute (2) Acute metabolic encephalopathy Code(s): G93.41 - METABOLIC ENCEPHALOPATHY Status: Acute - Plan Changed to IV metoprolol
[2019-02-18] MEDS: Haloperidol Lactate 5 MG/ML VIAL IM PRN ×2 (13:09→23:44)
[2019-02-18] MEDS ORDERED: Sodium Chloride 0.9% 500 ML IV SCH (14:00)
--- NOTE | 2019-02-18 17:56 | PRG ---
DATE OF SERVICE: 02/18/2019 SUBJECTIVE: Mr. Rosa's vital signs are stable. OBJECTIVE: VITAL SIGNS: He is afebrile. Blood pressure 107/63, heart rate is in the 120 range. LUNGS: Clear. HEART: Regular rhythm. ABDOMEN: Soft. LABORATORY DATA: White count 11.8, hemoglobin 8.8, platelets 228,000. Electrolytes are unchanged. Creatinine is 0.61. He is refusing his p.o. medications. PLAN: Hospice is the next step. He is stable to transfer out of the intermediate care unit in my opinion to a medical bed. Job ID: [id number]
[2019-02-19] MEDS: Dofetilide 0.125 MG CAP PO SCH ×2 (05:26→18:15)
[2019-02-19] MEDS: traMADol HCl 50 MG TAB PO PRN ×2 (05:26→19:51)
[2019-02-19 05:37] LABS: Anion Gap 9 mmol/L (10-20); BUN (Urea Nitrogen) 20 mg/dL (8.4-25.7); Calc. Creatinine Clearance 78 mL/min (70-130); Calcium 8.8 mg/dL (7.8-10.44); Carbon Dioxide 31 mmol/L (23-31); Chloride 105 mmol/L (98-107); Estimated GFR-MDRD Greater than 90; Glucose 79 mg/dL (83-110); Potassium 4.2 mmol/L (3.5-5.1); Sodium 141 mmol/L (136-145)
[2019-02-19 05:44] LABS: Phosphorus 3.4 mg/dL (2.3-4.7)
[2019-02-19] MEDS: Digoxin 0.125 MG TAB PO SCH (10:21)
[2019-02-19] MEDS: Potassium Chloride 10 MEQ TAB PO SCH ×2 (10:22→19:52)
[2019-02-19] MEDS: Ferrous Sulfate 325 MG TAB PO SCH (10:24)
[2019-02-19] MEDS: Furosemide 40 MG TAB PO SCH (10:24)
[2019-02-19] MEDS: predniSONE 20 MG TAB PO SCH (10:24)
[2019-02-19] MEDS: Apixaban 2.5 MG TAB PO SCH ×2 (10:25→20:05)
[2019-02-19] MEDS: Amoxicillin/Potassium Clav 875 MG TAB PO SCH ×2 (10:25→19:51)
--- NOTE | 2019-02-19 11:11 | PDOC.CPN ---
- Subjective Date: 02/19/19 Time: 11:09 Interval history: EP PROGRESS NOTE: 02/19/19 Seen as follow up for MAT and arrhythmia management. S/P Tikosyn re-loading. In stepdown ICU. Has orders for transfer. He is being considered for Hospice. Feels fair, but better than last week. Bipap as needed and HR continue to have episodes of rapid rates to 110 BPM. - Review of Systems Respiratory: reports: cough, shortness of breath - Objective Allergies/Adverse Reactions: Allergies Allergy/AdvReac Type Severity Reaction Status Date / Time ibuprofen [From Motrin] Allergy Verified 01/30/19 15:13 Visit Medications: Current Medications Albuterol/Ipratropium (Duoneb) 3 ml NEB [id number] [facility] Last Admin: 02/19/19 10:49 Dose: 3 ml Amoxicillin/Clavulanate Potassium (Augmentin) 875 mg PO Q12HR [facility] Last Admin: 02/19/19 10:25 Dose: 875 mg Apixaban (Eliquis) 2.5 mg PO BID [facility] Last Admin: 02/19/19 10:25 Dose: 2.5 mg Cholecalciferol (Vitamin D3) 5,000 units PO DAILY [facility] Last Admin: 02/19/19 10:21 Dose: 5,000 units Digoxin (Lanoxin) 0.125 mg PO DAILY [facility] Last Admin: 02/19/19 10:21 Dose: 0.125 mg Dofetilide (Tikosyn) 0.25 mg PO 0600,1800 [facility] Last Admin: 02/19/19 05:26 Dose: 0.25 mg Ferrous Sulfate (Feosol) 325 mg PO QAM-WM [facility] Last Admin: 02/19/19 10:24 Dose: 325 mg Furosemide (Lasix) 40 mg PO DAILY-AC [facility] Last Admin: 02/19/19 10:24 Dose: 40 mg Haloperidol Lactate (Haldol) 5 mg IM Q4H PRN PRN Reason: Anxiety/Agitation Last Admin: 02/18/19 23:44 Dose: 5 mg Metoprolol Succinate (Toprol Xl) 12.5 mg PO BID [facility] Last Admin: 02/19/19 10:26 Dose: Not Given Morphine Sulfate (Morphine) 2 mg SLOW IVP Q4H PRN PRN Reason: Severe Pain (7-10) Last Admin: 02/14/19 20:47 Dose: 2 mg Ondansetron HCl (Zofran) 4 mg SLOW IVP Q8H PRN PRN Reason: Nausea/Vomiting Pantoprazole Sodium (Protonix) 40 mg PO DAILY [facility] Last Admin: 02/19/19 10:22 Dose: 40 mg Potassium Chloride (Klor-Con 10) 20 meq PO BID [facility] Last Admin: 02/19/19 10:22 Dose: 20 meq Prednisone (Prednisone) 20 mg PO QAM-WM [facility] Last Admin: 02/19/19 10:24 Dose: 20 mg Sodium Chloride (Flush - Normal Saline) 10 ml IVF Q12HR [facility] Last Admin: 02/19/19 10:26 Dose: 10 ml Sodium Chloride (Flush - Normal Saline) 10 ml IVF PRN PRN PRN Reason: Saline Flush Last Admin: 02/08/19 05:13 Dose: 10 ml Sterile Water (Bacteriostatic Water) 1 ml FS PRN PRN PRN Reason: RECONSTITUTION Last Admin: 02/15/19 05:00 Dose: 1 ml Tramadol HCl (Ultram) 50 mg PO Q4H PRN PRN Reason: Mild-Moderate Pain (1-6) Last Admin: 02/19/19 05:26 Dose: 50 mg Vital Signs & Weight: Vital Signs Temp Pulse Resp Pulse Ox 02/19/19 10:49 116 H 21 H 02/19/19 10:21 108 H 02/19/19 08:26 98 02/19/19 08:25 108 H 22 H 99 02/19/19 08:00 98 02/19/19 07:45 98.6 F 02/19/19 04:34 98.9 F 02/19/19 00:12 115 H 27 H 02/19/19 00:00 98.9 F Weight 139 lb 15.896 oz - Quality Measures Condition: Atrial Fibrillation/Flutter (hx or current) CV meds: Anticoagulant: Yes - Physical Exam General: alert & oriented x3, no apparent distress, cachectic Neck: no JVD/HJR Cardiac: irregularly regular Lungs: clear to auscultation Neuro: grossly intact Abdomen: unremarkable Extremities: no cyanosis Skin: clear Musculoskeletal: other (Severe Kyphoscoliosis) - Labs Result Diagrams: 02/18/19 05:02 02/19/19 04:56 - EKG Interpretation Status: other (QTc 497ms.) EKG Method: 12 Lead - Telemetry Sinus rhythms and dysrhythmias: other (frequent mPACs and occ MAT.) - Problem (1) PAF (paroxysmal atrial fibrillation) Code(s): I48.0 - PAROXYSMAL ATRIAL FIBRILLATION - Assessment/Plan Assessment/Plan: Mr. Rosa is a pleasant 78-year-old man with prior history of advanced COPD; kyphoscoliosis; cardiomyopathy, nonischemic; recurrent atrial arrhythmias; who presented with urosepsis, which is likely obstructive. He underwent a cystoscopy and left ureteral stent placement. He also had been sent for cultures and antibiotics are planned. Currently, on cefepime. His urosepsis is improving. While in severely septic condition, his atrial fibrillation recurred especially hence his antiarrhythmic agent Tikosyn was on hold. On the other hand, with digoxin and fluid repletion and temperature control, his heart rates became more normalized but have now elevated once again. Plan/Recommendations: 1. Afib/MAT, Improving; rates moderately controlled - Digoxin 125mcg daily -Changed coreg to metoprolol succinate to better control tachycardia episodes in light of borderline hypotension -Continue current tikosyn dose. - avoid QTc prolonging anbx and medications. 3rd gen cephalosporin/cefepime- ok. 2. Chronic anticoagulation with apixaban, - currently on hold d/t mild hematuria - urology ok with anticoagulation at this time 4. ICD function dual-chamber adequate. -No new issues. Continue monitoring. 5. Sepsis -s/p ureteral stent and impacted ureteral stone. Possible op date next week Tuesday to address stones for which OAC would be interrupted. Blood pressures remain borderline. I question if he may be intravascularly depleted.I will check a dig level and possibly increase his dose to 250mcg daily. He cannot tolerate higher doses of betablockers. He is not a great candidate for ablation for either PVAI or AVJ. His SVC was narrow and placing a 2 wire ICD was not without difficulty so upgrading to a BiV system is not an option. We will work to optimize rate control and continue antiarrhythmic support with Tikosyn at this time while his numerous other medical issues are being addressed.
--- NOTE | 2019-02-19 14:47 | PDOC.HOSPP ---
- Subjective Encounter Date: 02/19/19 Encounter Time: 14:46 Subjective: No new complaints - Objective Vital Signs & Weight: Vital Signs (12 hours) Temp Pulse Resp Pulse Ox 02/19/19 11:15 98.9 F 02/19/19 10:49 116 H 21 H 02/19/19 10:21 108 H 02/19/19 08:26 98 02/19/19 08:25 108 H 22 H 99 02/19/19 08:00 98 02/19/19 07:45 98.6 F 02/19/19 04:34 98.9 F Weight Admit Weight 148 lb 14.4 oz Weight 139 lb 15.896 oz Most Recent Monitor Data Heart Rate from ECG 109 NIBP 95/46 NIBP BP-Mean 62 Respiration from ECG 19 SpO2 89 I&O: 02/18/19 02/19/19 02/20/19 06:59 06:59 06:59 Intake Total 730 1250 Output Total 2525 1025 Balance -1795 225 Result Diagrams: 02/18/19 05:02 02/19/19 04:56 Hospitalist ROS - Medication Medications: Active Medications Generic Name Dose Route Start Last Admin Trade Name Freq PRN Reason Stop Dose Admin Albuterol/Ipratropium 3 ml 02/11/19 18:30 02/19/19 10:49 Duoneb NEB 3 ml [id number] [facility] Administration Amoxicillin/Clavulanate Potassium 875 mg 02/15/19 09:00 02/19/19 10:25 Augmentin PO 875 mg Q12HR [facility] Administration Apixaban 2.5 mg 02/14/19 21:00 02/19/19 10:25 Eliquis PO 2.5 mg BID [facility] Administration Cholecalciferol 5,000 units 02/11/19 09:00 02/19/19 10:21 Vitamin D3 PO 5,000 units DAILY [facility] Administration Digoxin 0.125 mg 02/13/19 09:00 02/19/19 10:21 Lanoxin PO 0.125 mg DAILY [facility] Administration Dofetilide 0.25 mg 02/09/19 18:00 02/19/19 05:26 Tikosyn PO 0.25 mg 0600,1800 [facility] Administration Ferrous Sulfate 325 mg 02/14/19 08:00 02/19/19 10:24 Feosol PO 325 mg QAM-WM [facility] Administration Furosemide 40 mg 02/14/19 07:30 02/19/19 10:24 Lasix PO 40 mg DAILY-AC [facility] Administration Haloperidol Lactate 5 mg 02/16/19 15:21 02/18/19 23:44 Haldol IM 5 mg Q4H PRN Administration Anxiety/Agitation Metoprolol Succinate 12.5 mg 02/15/19 21:00 02/19/19 10:26 Toprol Xl PO Not Given BID [facility] Morphine Sulfate 2 mg 02/08/19 01:43 02/14/19 20:47 Morphine SLOW IVP 2 mg Q4H PRN Administration Severe Pain (7-10) Pantoprazole Sodium 40 mg 02/14/19 09:00 02/19/19 10:22 Protonix PO 40 mg DAILY [facility] Administration Potassium Chloride 20 meq 02/16/19 09:00 02/19/19 10:22 Klor-Con 10 PO 20 meq BID [facility] Administration Prednisone 20 mg 02/16/19 08:00 02/19/19 10:24 Prednisone PO 20 mg QAM-WM [facility] Administration Sodium Chloride 10 ml 02/08/19 09:00 02/19/19 10:26 Flush - Normal Saline IVF 10 ml Q12HR [facility] Administration Sodium Chloride 10 ml 02/08/19 04:05 02/08/19 05:13 Flush - Normal Saline IVF 10 ml PRN PRN Administration Saline Flush Sterile Water 1 ml 02/11/19 04:38 02/15/19 05:00 Bacteriostatic Water FS 1 ml PRN PRN Administration RECONSTITUTION Tramadol HCl 50 mg 02/14/19 23:16 02/19/19 05:26 Ultram PO 50 mg Q4H PRN Administration Mild-Moderate Pain (1-6) - Exam General Appearance: NAD, awake alert, ill appearing Eye: PERRL, anicteric sclera, scleral icterus ENT: normocephalic atraumatic, no oropharyngeal lesions, moist mucosa, dry oral mucosa Neck: supple, symmetric, no JVD, no thyromegaly, no lymphadenopathy, no carotid bruit, JVD Heart: RRR, no murmur, no gallops, no rubs, normal peripheral pulses, irregular , diminshed peripheral pulses, murmur present, II/IV, III/IV Respiratory: CTAB, no wheezes, no rales, no ronchi, normal chest expansion, no tachypnea, normal percussion, rales, rhonchi, tachypneic, wheezes Gastrointestinal: soft, non-tender, non-distended, normal bowel sounds, no palpable masses, no hepatomegaly, no splenomegaly, no bruit, no guarding, no rigidity, tender to palpation, distended, diminished bowl sounds, voluntary guarding Hosp A/P (1) Tachycardia Code(s): R00.0 - TACHYCARDIA, UNSPECIFIED Status: Acute (2) Acute metabolic encephalopathy Code(s): G93.41 - METABOLIC ENCEPHALOPATHY Status: Acute - Plan Changed to IV metoprolol. The BP better, await tele bed to transfer
--- NOTE | 2019-02-19 15:01 | PRG ---
DATE OF SERVICE: 02/19/2019 SUBJECTIVE: Jordy Rosa is more alert today. We discussed his declining to take medicine yesterday. He did not remember doing this. He said he taken his medicine this morning. OBJECTIVE: VITAL SIGNS: Heart rates 108 to 116, 59% on 2 L, blood pressure is 95/41, respiratory rate 19. LUNGS: Mild rhonchi bilaterally. HEART: Regular rhythm. ABDOMEN: Soft. Sodium 141, potassium 4.2, chloride 105, bicarb 31, BUN 20, creatinine 0.72. IMPRESSION: Severe kyphoscoliosis with marginally productive cough stable. Atelectasis hopefully he will take his medications. Actually, he looks much better as well as he has looked this entire admission now. I do not think he is getting ready to succumb to this illness at this point. The next step will be determining placement. Job ID: [id number]
[2019-02-20 04:58] LABS: Anion Gap 7 mmol/L (10-20); BUN (Urea Nitrogen) 18 mg/dL (8.4-25.7); Calc. Creatinine Clearance 84 mL/min (70-130); Calcium 8.6 mg/dL (7.8-10.44); Carbon Dioxide 33 mmol/L (23-31); Chloride 102 mmol/L (98-107); Estimated GFR-MDRD Greater than 90; Glucose 108 mg/dL (83-110); Magnesium 1.9 mg/dL (1.6-2.6); Potassium 3.9 mmol/L (3.5-5.1); Sodium 138 mmol/L (136-145)
[2019-02-20 05:15] LABS: Phosphorus 2.1 mg/dL (2.3-4.7)
[2019-02-20] MEDS: Dofetilide 0.125 MG CAP PO SCH ×2 (05:48→17:45)
[2019-02-20] MEDS: Potassium Chloride 10 MEQ TAB PO SCH ×2 (08:33→19:44)
[2019-02-20] MEDS: Ferrous Sulfate 325 MG TAB PO SCH (08:34)
[2019-02-20] MEDS: Digoxin 0.125 MG TAB PO SCH (08:34)
[2019-02-20] MEDS: Apixaban 2.5 MG TAB PO SCH ×2 (08:34→19:44)
[2019-02-20] MEDS: Amoxicillin/Potassium Clav 875 MG TAB PO SCH ×2 (08:34→19:43)
[2019-02-20] MEDS: Furosemide 40 MG TAB PO SCH (08:34)
[2019-02-20] MEDS: predniSONE 20 MG TAB PO SCH (08:34)
--- NOTE | 2019-02-20 10:33 | EKG ---
Test Reason : Blood Pressure : / mmHG Vent. Rate : 104 BPM Atrial Rate : 097 BPM P-R Int : 000 ms QRS Dur : 118 ms QT Int : 378 ms P-R-T Axes : 082 -43 234 degrees QTc Int : 497 ms Undetermined rhythm Left axis deviation Incomplete right bundle branch block Anteroseptal infarct (cited on or before 17-FEB-2019) Abnormal ECG Confirmed by NICKO PERKINS, MADELINE ([id number]) on 02/20/2019 10:33:10 AM Referred By: BASIA Confirmed By:MADELINE MAHARAJ MD
--- NOTE | 2019-02-20 10:34 | EKG ---
Test Reason : Blood Pressure : / mmHG Vent. Rate : 096 BPM Atrial Rate : 096 BPM P-R Int : 166 ms QRS Dur : 106 ms QT Int : 366 ms P-R-T Axes : 063 -46 -72 degrees QTc Int : 462 ms Sinus rhythm with occasional Premature ventricular complexes and Premature atrial complexes Left axis deviation Incomplete right bundle branch block Anteroseptal infarct Abnormal ECG Confirmed by NICKO PERKINS, MADELINE ([id number]) on 02/20/2019 10:33:59 AM Referred By: TOMAS Confirmed By:MADELINE MAHARAJ MD
--- NOTE | 2019-02-20 14:41 | PDOC.CPN ---
- Subjective Date: 02/20/19 Time: 08:00 Interval history: EP PROGRESS NOTE: 02/20/19 Seen as follow up for MAT and arrhythmia management. S/P Tikosyn re-loading. Now on tele. He is being considered for Hospice. Feels fair, but better than last week. Bipap as needed and HR continue to have episodes of rapid rates to 110 BPM. - Review of Systems General: denies: fever/chills, weight/appetite/sleep changes, night sweats, fatigue Respiratory: reports: shortness of breath Cardiovascular: denies: chest pain, palpitation Gastrointestinal: denies: nausea, vomiting, diarrhea Neurological: reports: weakness - Objective Allergies/Adverse Reactions: Allergies Allergy/AdvReac Type Severity Reaction Status Date / Time ibuprofen [From Motrin] Allergy Verified 01/30/19 15:13 Visit Medications: Current Medications Albuterol/Ipratropium (Duoneb) 3 ml NEB [id number] [facility] Last Admin: 02/20/19 14:06 Dose: 3 ml Amoxicillin/Clavulanate Potassium (Augmentin) 875 mg PO Q12HR [facility] Last Admin: 02/20/19 08:34 Dose: 875 mg Apixaban (Eliquis) 2.5 mg PO BID [facility] Last Admin: 02/20/19 08:34 Dose: 2.5 mg Cholecalciferol (Vitamin D3) 5,000 units PO DAILY [facility] Last Admin: 02/20/19 08:32 Dose: 5,000 units Digoxin (Lanoxin) 0.125 mg PO DAILY [facility] Last Admin: 02/20/19 08:34 Dose: 0.125 mg Dofetilide (Tikosyn) 0.25 mg PO 0600,1800 [facility] Last Admin: 02/20/19 05:48 Dose: 0.25 mg Ferrous Sulfate (Feosol) 325 mg PO QAM-WM [facility] Last Admin: 02/20/19 08:34 Dose: 325 mg Furosemide (Lasix) 40 mg PO DAILY-AC [facility] Last Admin: 02/20/19 08:34 Dose: 40 mg Haloperidol Lactate (Haldol) 5 mg IM Q4H PRN PRN Reason: Anxiety/Agitation Last Admin: 02/18/19 23:44 Dose: 5 mg Metoprolol Succinate (Toprol Xl) 12.5 mg PO BID [facility] Last Admin: 02/20/19 08:33 Dose: 12.5 mg Morphine Sulfate (Morphine) 2 mg SLOW IVP Q4H PRN PRN Reason: Severe Pain (7-10) Last Admin: 02/14/19 20:47 Dose: 2 mg Ondansetron HCl (Zofran) 4 mg SLOW IVP Q8H PRN PRN Reason: Nausea/Vomiting Pantoprazole Sodium (Protonix) 40 mg PO DAILY [facility] Last Admin: 02/20/19 08:34 Dose: 40 mg Potassium Chloride (Klor-Con 10) 20 meq PO BID [facility] Last Admin: 02/20/19 08:33 Dose: 20 meq Prednisone (Prednisone) 20 mg PO QAM-WM [facility] Last Admin: 02/20/19 08:34 Dose: 20 mg Sodium Chloride (Flush - Normal Saline) 10 ml IVF Q12HR [facility] Last Admin: 02/20/19 08:35 Dose: 10 ml Sodium Chloride (Flush - Normal Saline) 10 ml IVF PRN PRN PRN Reason: Saline Flush Last Admin: 02/08/19 05:13 Dose: 10 ml Sterile Water (Bacteriostatic Water) 1 ml FS PRN PRN PRN Reason: RECONSTITUTION Last Admin: 02/15/19 05:00 Dose: 1 ml Tramadol HCl (Ultram) 50 mg PO Q4H PRN PRN Reason: Mild-Moderate Pain (1-6) Last Admin: 02/19/19 19:51 Dose: 50 mg Vital Signs & Weight: Vital Signs Temp Pulse Resp BP BP Pulse Ox 02/20/19 14:06 87 16 96 02/20/19 12:15 98.0 F 90 22 H 113/71 95 02/20/19 10:43 86 20 98 02/20/19 07:41 97.6 F 111 H 22 H 118/56 L 98 02/20/19 07:23 103 H 18 93 L 02/20/19 03:20 97.8 F 77 18 123/85 99 Admit Weight 148 lb 14.4 oz Weight 139 lb 15.896 oz - Quality Measures Condition: Atrial Fibrillation/Flutter (hx or current) CV meds: Anticoagulant: Yes - Physical Exam General: alert & oriented x3, no apparent distress HEENT: mucus membranes moist Neck: supple neck, no JVD/HJR Cardiac: irregularly regular Lungs: decreased breath sounds Neuro: grossly intact Abdomen: unremarkable Extremities: no edema - Labs Result Diagrams: 02/18/19 05:02 02/20/19 04:17 - Telemetry Sinus rhythms and dysrhythmias: other (MAT) - Assessment/Plan Assessment/Plan: Plan/Recommendations: 1. Afib/MAT, Improving; rates moderately controlled - Digoxin 125mcg daily -Changed coreg to metoprolol succinate to better control tachycardia episodes in light of borderline hypotension -Continue current tikosyn dose. - avoid QTc prolonging anbx and medications. 2. Chronic anticoagulation with apixaban, - currently on hold d/t mild hematuria - urology ok with anticoagulation at this time 4. ICD function dual-chamber adequate. -No new issues. Continue monitoring. 5. Sepsis -s/p ureteral stent and impacted ureteral stone. Possible op date next week Tuesday to address stones for which OAC would be interrupted. Blood pressures improved since last week. He likely cannot tolerate higher doses of betablockers unless BP further improves. He is a poor candidate for ablation, either PVAI or AVJ. His SVC was narrow and placing a 2 wire ICD was not without difficulty so upgrading to a BiV system is not an option. We have optimized rate control and would continue antiarrhythmic support with Tikosyn at this time while his numerous other medical issues are being addressed. EP signing off. Contact Dr Arora if further input is desired. Thank you.
--- NOTE | 2019-02-20 14:41 | PDOC.HOSPP ---
- Subjective Encounter Date: 02/20/19 Encounter Time: 14:39 Subjective: no new complaints - Objective Vital Signs & Weight: Vital Signs (12 hours) Temp Pulse Resp BP BP Pulse Ox 02/20/19 14:06 87 16 96 02/20/19 12:15 98.0 F 90 22 H 113/71 95 02/20/19 10:43 86 20 98 02/20/19 07:41 97.6 F 111 H 22 H 118/56 L 98 02/20/19 07:23 103 H 18 93 L 02/20/19 03:20 97.8 F 77 18 123/85 99 Weight Admit Weight 148 lb 14.4 oz Weight 139 lb 15.896 oz Most Recent Monitor Data Heart Rate from ECG 109 NIBP 95/46 NIBP BP-Mean 62 Respiration from ECG 19 SpO2 89 I&O: 02/19/19 02/20/19 02/21/19 06:59 06:59 06:59 Intake Total 1250 250 Output Total 1025 650 Balance 225 -400 Result Diagrams: 02/18/19 05:02 02/20/19 04:17 Hospitalist ROS - Medication Medications: Active Medications Generic Name Dose Route Start Last Admin Trade Name Freq PRN Reason Stop Dose Admin Albuterol/Ipratropium 3 ml 02/11/19 18:30 02/20/19 14:06 Duoneb NEB 3 ml [id number] TAHIRA Administration Amoxicillin/Clavulanate Potassium 875 mg 02/15/19 09:00 02/20/19 08:34 Augmentin PO 875 mg Q12HR TAHIRA Administration Apixaban 2.5 mg 02/14/19 21:00 02/20/19 08:34 Eliquis PO 2.5 mg BID TAHIRA Administration Cholecalciferol 5,000 units 02/11/19 09:00 02/20/19 08:32 Vitamin D3 PO 5,000 units DAILY TAHIRA Administration Digoxin 0.125 mg 02/13/19 09:00 02/20/19 08:34 Lanoxin PO 0.125 mg DAILY TAHIRA Administration Dofetilide 0.25 mg 02/09/19 18:00 02/20/19 05:48 Tikosyn PO 0.25 mg 0600,1800 TAHIRA Administration Ferrous Sulfate 325 mg 02/14/19 08:00 02/20/19 08:34 Feosol PO 325 mg QAM-WM TAHIRA Administration Furosemide 40 mg 02/14/19 07:30 02/20/19 08:34 Lasix PO 40 mg DAILY-AC TAHIRA Administration Haloperidol Lactate 5 mg 02/16/19 15:21 02/18/19 23:44 Haldol IM 5 mg Q4H PRN Administration Anxiety/Agitation Metoprolol Succinate 12.5 mg 02/15/19 21:00 02/20/19 08:33 Toprol Xl PO 12.5 mg BID TAHIRA Administration Morphine Sulfate 2 mg 02/08/19 01:43 02/14/19 20:47 Morphine SLOW IVP 2 mg Q4H PRN Administration Severe Pain (7-10) Pantoprazole Sodium 40 mg 02/14/19 09:00 02/20/19 08:34 Protonix PO 40 mg DAILY TAHIRA Administration Potassium Chloride 20 meq 02/16/19 09:00 02/20/19 08:33 Klor-Con 10 PO 20 meq BID TAHIRA Administration Prednisone 20 mg 02/16/19 08:00 02/20/19 08:34 Prednisone PO 20 mg QAM-WM TAHIRA Administration Sodium Chloride 10 ml 02/08/19 09:00 02/20/19 08:35 Flush - Normal Saline IVF 10 ml Q12HR TAHIRA Administration Sodium Chloride 10 ml 02/08/19 04:05 02/08/19 05:13 Flush - Normal Saline IVF 10 ml PRN PRN Administration Saline Flush Sterile Water 1 ml 02/11/19 04:38 02/15/19 05:00 Bacteriostatic Water FS 1 ml PRN PRN Administration RECONSTITUTION Tramadol HCl 50 mg 02/14/19 23:16 02/19/19 19:51 Ultram PO 50 mg Q4H PRN Administration Mild-Moderate Pain (1-6) - Exam General Appearance: NAD, awake alert, ill appearing ENT: normocephalic atraumatic, no oropharyngeal lesions, moist mucosa, dry oral mucosa Neck: supple, symmetric, no JVD, no thyromegaly, no lymphadenopathy, no carotid bruit, JVD Heart: RRR, no murmur, no gallops, no rubs, normal peripheral pulses, irregular , diminshed peripheral pulses, murmur present, II/IV, III/IV Respiratory: CTAB, no wheezes, no rales, no ronchi, normal chest expansion, no tachypnea, normal percussion, rales, rhonchi, tachypneic, wheezes Gastrointestinal: soft, non-tender, non-distended, normal bowel sounds, no palpable masses, no hepatomegaly, no splenomegaly, no bruit, no guarding, no rigidity, tender to palpation, distended, diminished bowl sounds, voluntary guarding Extremities: no cyanosis, no clubbing, no edema, 1+ LE edema, 2+ LE edema, clubbing Hosp A/P (1) Tachycardia Code(s): R00.0 - TACHYCARDIA, UNSPECIFIED Status: Acute (2) Acute metabolic encephalopathy Code(s): G93.41 - METABOLIC ENCEPHALOPATHY Status: Acute - Plan Changed to IV metoprolol. The BP better, await tele bed to transfer, transfer to tele
--- NOTE | 2019-02-20 17:02 | PRG ---
DATE OF SERVICE: 02/20/2019 SUBJECTIVE: Jordy Rosa is more cooperative. He is taking his medicines. OBJECTIVE: VITAL SIGNS: He is afebrile, heart rates in the 90s, respiratory rates in the 20s, oximetry is 99% on 2.5 L, and blood pressure 131/57. LUNGS: Unchanged. HEART: Unchanged. ABDOMEN: Unchanged. LABORATORY DATA: Sodium 138, potassium 3.9, chloride 102, bicarb 32, BUN 18, and creatinine 0.67. IMPRESSION: 1. Status post sepsis with ureteral stone. 2. Multifocal atrial tachycardia, rate control. 3. Severe kyphoscoliosis. 4. Asthma. 5. Deconditioning. 6. Do not resuscitate status. He is doing reasonably well. We could begin considering transfer to his living environment. Job ID: [id number]
[2019-02-20] MEDS: traMADol HCl 50 MG TAB PO PRN (20:23)
[2019-02-21] MEDS: Dofetilide 0.125 MG CAP PO SCH ×2 (05:37→19:17)
[2019-02-21 06:01] LABS: Anion Gap 10 mmol/L (10-20); BUN (Urea Nitrogen) 14 mg/dL (8.4-25.7); Calc. Creatinine Clearance 87 mL/min (70-130); Carbon Dioxide 29 mmol/L (23-31); Chloride 102 mmol/L (98-107); Estimated GFR-MDRD Greater than 90; Glucose 83 mg/dL (83-110); Potassium 4.2 mmol/L (3.5-5.1); Sodium 137 mmol/L (136-145)
[2019-02-21 06:22] LABS: Phosphorus 2.1 mg/dL (2.3-4.7)
[2019-02-21] MEDS: Amoxicillin/Potassium Clav 875 MG TAB PO SCH ×2 (08:24→19:45)
[2019-02-21] MEDS: Ferrous Sulfate 325 MG TAB PO SCH (08:24)
[2019-02-21] MEDS: Potassium Chloride 10 MEQ TAB PO SCH ×2 (08:24→19:45)
[2019-02-21] MEDS: Apixaban 2.5 MG TAB PO SCH ×2 (08:24→19:45)
[2019-02-21] MEDS: predniSONE 20 MG TAB PO SCH (08:24)
[2019-02-21] MEDS: Digoxin 0.125 MG TAB PO SCH (08:25)
[2019-02-21] MEDS: Furosemide 40 MG TAB PO SCH (08:25)
--- NOTE | 2019-02-21 13:59 | PDOC.HOSPP ---
- Subjective Encounter Date: 02/21/19 Encounter Time: 13:58 Subjective: No new complaints - Objective Vital Signs & Weight: Vital Signs (12 hours) Temp Pulse Pulse Pulse Resp BP BP 02/21/19 11:53 97.8 F 105 H 20 02/21/19 10:55 102 H 18 02/21/19 10:15 94 114 H 127/57 L 130/94 H 02/21/19 08:25 109 H 02/21/19 08:20 98.9 F 109 H 20 02/21/19 08:00 02/21/19 07:15 96 16 02/21/19 04:00 97.8 F 93 15 02/21/19 02:42 99 20 BP BP Pulse Ox 02/21/19 11:53 119/53 L 97 02/21/19 10:55 98 02/21/19 10:15 02/21/19 08:25 02/21/19 08:20 112/60 98 02/21/19 08:00 97 02/21/19 07:15 97 02/21/19 04:00 104/53 L 96 02/21/19 02:42 96 Weight Admit Weight 148 lb 14.4 oz Weight 140 lb 12.8 oz Most Recent Monitor Data Heart Rate from ECG 109 NIBP 95/46 NIBP BP-Mean 62 Respiration from ECG 19 SpO2 89 I&O: 02/20/19 02/21/19 02/22/19 06:59 06:59 06:59 Intake Total 1420 Output Total 2950 Balance -1530 Result Diagrams: 02/18/19 05:02 02/21/19 04:42 Hospitalist ROS - Medication Medications: Active Medications Generic Name Dose Route Start Last Admin Trade Name Freq PRN Reason Stop Dose Admin Albuterol/Ipratropium 3 ml 02/11/19 18:30 02/21/19 10:55 Duoneb NEB 3 ml [id number] TAHIRA Administration Amoxicillin/Clavulanate Potassium 875 mg 02/15/19 09:00 02/21/19 08:24 Augmentin PO 875 mg Q12HR TAHIRA Administration Apixaban 2.5 mg 02/14/19 21:00 02/21/19 08:24 Eliquis PO 2.5 mg BID TAHIRA Administration Cholecalciferol 5,000 units 02/11/19 09:00 02/21/19 08:25 Vitamin D3 PO 5,000 units DAILY TAHIRA Administration Digoxin 0.125 mg 02/13/19 09:00 02/21/19 08:25 Lanoxin PO 0.125 mg DAILY TAHIRA Administration Dofetilide 0.25 mg 02/09/19 18:00 02/21/19 05:37 Tikosyn PO 0.25 mg 0600,1800 TAHIRA Administration Ferrous Sulfate 325 mg 02/14/19 08:00 02/21/19 08:24 Feosol PO 325 mg QAM-WM TAHIRA Administration Furosemide 40 mg 02/14/19 07:30 02/21/19 08:25 Lasix PO 40 mg DAILY-AC TAHIRA Administration Haloperidol Lactate 5 mg 02/16/19 15:21 02/18/19 23:44 Haldol IM 5 mg Q4H PRN Administration Anxiety/Agitation Metoprolol Succinate 12.5 mg 02/15/19 21:00 02/21/19 08:25 Toprol Xl PO 12.5 mg BID TAHIRA Administration Morphine Sulfate 2 mg 02/08/19 01:43 02/14/19 20:47 Morphine SLOW IVP 2 mg Q4H PRN Administration Severe Pain (7-10) Pantoprazole Sodium 40 mg 02/14/19 09:00 02/21/19 08:24 Protonix PO 40 mg DAILY TAHIRA Administration Potassium Chloride 20 meq 02/16/19 09:00 02/21/19 08:24 Klor-Con 10 PO 20 meq BID TAHIRA Administration Prednisone 20 mg 02/16/19 08:00 02/21/19 08:24 Prednisone PO 20 mg QAM-WM TAHIRA Administration Sodium Chloride 10 ml 02/08/19 09:00 02/21/19 08:25 Flush - Normal Saline IVF 10 ml Q12HR TAHIRA Administration Sodium Chloride 10 ml 02/08/19 04:05 02/08/19 05:13 Flush - Normal Saline IVF 10 ml PRN PRN Administration Saline Flush Sterile Water 1 ml 02/11/19 04:38 02/15/19 05:00 Bacteriostatic Water FS 1 ml PRN PRN Administration RECONSTITUTION Tramadol HCl 50 mg 02/14/19 23:16 02/20/19 20:23 Ultram PO 50 mg Q4H PRN Administration Mild-Moderate Pain (1-6) - Exam General Appearance: NAD, awake alert, ill appearing Eye: PERRL, anicteric sclera, scleral icterus ENT: normocephalic atraumatic, no oropharyngeal lesions, moist mucosa, dry oral mucosa Neck: supple, symmetric, no JVD, no thyromegaly, no lymphadenopathy, no carotid bruit, JVD Heart: RRR, no murmur, no gallops, no rubs, normal peripheral pulses, irregular , diminshed peripheral pulses, murmur present, II/IV, III/IV Respiratory: CTAB, no wheezes, no rales, no ronchi, normal chest expansion, no tachypnea, normal percussion, rales, rhonchi, tachypneic, wheezes Gastrointestinal: soft, non-tender, non-distended, normal bowel sounds, no palpable masses, no hepatomegaly, no splenomegaly, no bruit, no guarding, no rigidity, tender to palpation, distended, diminished bowl sounds, voluntary guarding Extremities: no cyanosis, no clubbing, no edema, 1+ LE edema, 2+ LE edema, clubbing Skin: normal turgor, no lesions, no rashes, tenting Neurological: cranial nerve grossly intact, normal sensation to touch, no weakness, no focal deficits, no new deficit, facial droop, hemiplegia, speech deficit, vision deficit Musculoskeletal: normal tone, normal strength, no muscle wasting, generalized weakness, diffuse muscle atrophy Hosp A/P (1) Tachycardia Code(s): R00.0 - TACHYCARDIA, UNSPECIFIED Status: Acute (2) Acute metabolic encephalopathy Code(s): G93.41 - METABOLIC ENCEPHALOPATHY Status: Acute - Plan Changed to IV metoprolol. The BP better, await tele bed to transfer, transfer to tele. Continue PT, OT. Slow response, D?C planning.
--- NOTE | 2019-02-21 15:50 | PRG ---
DATE OF SERVICE: 02/21/2019 SUBJECTIVE: Jordy Rosa is clinically unchanged. OBJECTIVE: VITAL SIGNS: He is afebrile. Heart rate is 84, respiratory rate 16, oximetry is 96% on 2 L, blood pressure 119/53. LUNGS: Unchanged. HEART: Unchanged. ABDOMEN: Unchanged. IMPRESSION: 1. Asthma, clinically stable. 2. Severe kyphoscoliosis. 3. Deconditioning. 4. Status post bacteremic nephrolithiasis, status post stent placement. 5. Anemia of chronic disease combined with blood draws this admission. He is a do not resuscitate patient. He actually has rallied over the last 4 to 5 days. I do not think he is close to succumbing to anything at this point in time. He is stable from my standpoint for discharge to whatever care environment is the next step per the family. Job ID: [id number]
[2019-02-21] MEDS: traMADol HCl 50 MG TAB PO PRN (19:17)
[2019-02-22 05:01] LABS: Phosphorus 2.3 mg/dL (2.3-4.7)
[2019-02-22 05:04] LABS: Anion Gap 8 mmol/L (10-20); BUN (Urea Nitrogen) 15 mg/dL (8.4-25.7); Calc. Creatinine Clearance 81 mL/min (70-130); Calcium 8.9 mg/dL (7.8-10.44); Carbon Dioxide 34 mmol/L (23-31); Chloride 104 mmol/L (98-107); Estimated GFR-MDRD Greater than 90; Glucose 98 mg/dL (83-110); Potassium 3.8 mmol/L (3.5-5.1); Sodium 142 mmol/L (136-145)
[2019-02-22] MEDS: Dofetilide 0.125 MG CAP PO SCH ×2 (06:14→17:57)
[2019-02-22] MEDS: Digoxin 0.125 MG TAB PO SCH (09:13)
[2019-02-22] MEDS: Potassium Chloride 10 MEQ TAB PO SCH ×2 (09:13→20:15)
[2019-02-22] MEDS: Amoxicillin/Potassium Clav 875 MG TAB PO SCH ×2 (09:14→20:15)
[2019-02-22] MEDS: Apixaban 2.5 MG TAB PO SCH ×2 (09:15→20:15)
[2019-02-22] MEDS: predniSONE 20 MG TAB PO SCH (09:15)
[2019-02-22] MEDS: Ferrous Sulfate 325 MG TAB PO SCH (09:15)
[2019-02-22] MEDS: Furosemide 40 MG TAB PO SCH (09:15)
--- NOTE | 2019-02-22 15:31 | PDOC.PALCO ---
Palliative Care Consult - Consult Details Requesting Physician: Dr Smallwood Reason for Consult: goals of care Family Members Present: None - Pertinent HPI 78 year old male who presented to the emergency room with left flank pain and abdominal pain that onset two days prior and has had no relieving factors, symptoms progressed with onset of nausea and vomiting. Multiple chronic conditions. Evaluation in the emergency room identified elevated white count, tachycardia, tachypnea, and CT findings of hydorureteronephrosis related to ureteral calculi. Patient admitted to the hospital for further management. - Pertinent PMH Scolosis, CVA, COPD, Chronic resp failure, O2 dependent, CHF, AICD, - Social History Smoking Status: Former smoker Smoking: quit greater than 1 year Alcohol Use: none Drug Use History: none - Medications MAR Reviewed: Yes - Allergies Allergies/Adverse Reactions: Allergies Allergy/AdvReac Type Severity Reaction Status Date / Time ibuprofen [From Motrin] Allergy Verified 01/30/19 15:13 - Subjective Sitting on side of bed, complains of shortness of breath, cough, weakness. Eating lunch, nausea, vomiting resolved. - Objective Vital Signs: Vital Signs - Most Recent Temp Pulse Resp BP Pulse Ox 98.0 F 98 20 106/58 L 96 02/22/19 11:37 02/22/19 14:42 02/22/19 14:42 02/22/19 11:43 02/22/19 14:42 Palliative Performance Scale: 50 - Physical Exam Constitutional: NAD HEENT: moist MMs, EOMI Deviation from normal: Labored respirations, barrel chest, Cardiovascular: RRR Gastrointestinal: soft, non-tender Musculoskeletal: no edema Neurological: moves all 4 limbs Psychiatric: normal affect, A&O x 3 Deviation from normal: fragile skin, brusing - Problem List (1) Palliative care encounter Code(s): Z51.5 - ENCOUNTER FOR PALLIATIVE CARE Current Visit: Yes Status: Acute (2) Physical deconditioning Code(s): R53.81 - OTHER MALAISE Current Visit: Yes Status: Acute (3) Acute on chronic systolic ACC/AHA stage C congestive heart failure Code(s): I50.23 - ACUTE ON CHRONIC SYSTOLIC (CONGESTIVE) HEART FAILURE Current Visit: No Status: Acute (4) COPD (chronic obstructive pulmonary disease) Current Visit: No Status: Chronic Qualifiers: COPD type: COPD with acute exacerbation Qualified Code(s): J44.1 - Chronic obstructive pulmonary disease with (acute) exacerbation - Plan/Recommendations Plan: Initial contact by Palliative Care RN. *Confirmed DNAR status *Patient states "No Jail" *Presented Hospice as an option in the future *Consider Home Health (Has utilized [facility] in the past) this would be optimal as they have a palliative care/gap program that transitions to hospice as appropriate [30] minutes spent on this encounter with >50% of the time in counseling and coordination of care. Thank you for this very appropriate consult.
--- NOTE | 2019-02-22 20:07 | PRG ---
DATE OF SERVICE: 02/22/2019 SUBJECTIVE: Jordy Rosa is unchanged. He is back to his baseline. OBJECTIVE: VITAL SIGNS: He is afebrile. Heart rate is 98 to 105 respiratory rates in the teens, oximetry is 97% on a 2 L cannula, blood pressure 105/53. LUNGS: Clear. HEART: Regular rhythm. ABDOMEN: Soft. IMPRESSION: Status post sepsis with Proteus secondary to urolithiasis. Dr. Desai stated he wanted to pull his stent in 2 weeks. It has been 2 weeks. He was notified of the persistent presence of the patient in the hospital by the nursing staff. We will continue to follow. There is no pulmonary reason to keep him in the hospital. Job ID: [id number]
--- NOTE | 2019-02-22 20:44 | PRG ---
DATE OF SERVICE: 02/22/2019 SUBJECTIVE: Jordy Rosa is in no distress. OBJECTIVE: VITAL SIGNS: His vital signs remained stable. He is afebrile. He is on 2 to 3 L nasal cannula with oximetry in the high 90s, blood pressure 105/53. LUNGS: Unchanged. HEART: Unchanged. ABDOMEN: Unchanged. I feel strongly that he is at his baseline. There are plans to transfer him to an assisted living environment. We need to go ahead and transfer him. There is no reason to keep him in the hospital. There are issues surrounding his stent, and Urology has been notified that he is still in the hospital to make sure they did not want to do anything with regard to his ureteral stent prior to discharge. Job ID: [id number]
--- NOTE | 2019-02-22 23:56 | PDOC.HOSPP ---
- Subjective Encounter Date: 02/22/19 Encounter Time: 19:00 Subjective: Patient complains of left flank pain, mild nausea and vomiting. Has mild pain on both sides. No new complaints He is not interested in shelter placement or hospice - Objective Vital Signs & Weight: Vital Signs (12 hours) Temp Pulse Resp BP BP Pulse Ox 02/22/19 22:53 83 20 99 02/22/19 20:09 98.6 F 110 H 18 121/58 L 96 02/22/19 19:04 103 H 20 99 02/22/19 16:00 98.5 F 105 H 18 105/53 L 97 02/22/19 14:42 98 20 96 Weight Admit Weight 148 lb 14.4 oz Weight 140 lb 12.8 oz Most Recent Monitor Data Heart Rate from ECG 109 NIBP 95/46 NIBP BP-Mean 62 Respiration from ECG 19 SpO2 89 I&O: 02/21/19 02/22/19 02/23/19 06:59 06:59 06:59 Intake Total 1420 1520 Output Total 2950 1900 Balance -1530 -380 Result Diagrams: 02/18/19 05:02 02/22/19 03:58 Hospitalist ROS - Review of Systems Constitutional: denies: fever, chills - Medication Medications: Active Medications Generic Name Dose Route Start Last Admin Trade Name Buzz PRN Reason Stop Dose Admin Albuterol/Ipratropium 3 ml 02/11/19 18:30 02/22/19 22:53 Duoneb NEB 3 ml [id number] TAHIRA Administration Amoxicillin/Clavulanate Potassium 875 mg 02/15/19 09:00 02/22/19 20:15 Augmentin PO 875 mg Q12HR TAHIRA Administration Apixaban 2.5 mg 02/14/19 21:00 02/22/19 20:15 Eliquis PO 2.5 mg BID TAHIRA Administration Cholecalciferol 5,000 units 02/11/19 09:00 02/22/19 09:14 Vitamin D3 PO 5,000 units DAILY TAHIRA Administration Digoxin 0.125 mg 02/13/19 09:00 02/22/19 09:13 Lanoxin PO 0.125 mg DAILY TAHIRA Administration Dofetilide 0.25 mg 02/09/19 18:00 02/22/19 17:57 Tikosyn PO 0.25 mg 0600,1800 TAHIRA Administration Ferrous Sulfate 325 mg 02/14/19 08:00 02/22/19 09:15 Feosol PO 325 mg QAM-WM TAHIRA Administration Furosemide 40 mg 02/14/19 07:30 02/22/19 09:15 Lasix PO 40 mg DAILY-AC TAHIRA Administration Haloperidol Lactate 5 mg 02/16/19 15:21 02/18/19 23:44 Haldol IM 5 mg Q4H PRN Administration Anxiety/Agitation Metoprolol Succinate 12.5 mg 02/15/19 21:00 02/22/19 20:15 Toprol Xl PO 12.5 mg BID TAHIRA Administration Morphine Sulfate 2 mg 02/08/19 01:43 02/14/19 20:47 Morphine SLOW IVP 2 mg Q4H PRN Administration Severe Pain (7-10) Pantoprazole Sodium 40 mg 02/14/19 09:00 02/22/19 09:14 Protonix PO 40 mg DAILY TAHIRA Administration Potassium Chloride 20 meq 02/16/19 09:00 02/22/19 20:15 Klor-Con 10 PO 20 meq BID TAHIRA Administration Prednisone 20 mg 02/16/19 08:00 02/22/19 09:15 Prednisone PO 20 mg QAM-WM TAHIRA Administration Sodium Chloride 10 ml 02/08/19 09:00 02/22/19 20:16 Flush - Normal Saline IVF 10 ml Q12HR TAHIRA Administration Sodium Chloride 10 ml 02/08/19 04:05 02/08/19 05:13 Flush - Normal Saline IVF 10 ml PRN PRN Administration Saline Flush Sterile Water 1 ml 02/11/19 04:38 02/15/19 05:00 Bacteriostatic Water FS 1 ml PRN PRN Administration RECONSTITUTION Tramadol HCl 50 mg 02/14/19 23:16 02/21/19 19:17 Ultram PO 50 mg Q4H PRN Administration Mild-Moderate Pain (1-6) - Exam General Appearance: NAD, awake alert General - other findings: severe kyphoscoliosis Eye: PERRL, anicteric sclera ENT: normocephalic atraumatic, no oropharyngeal lesions, dry oral mucosa Neck: supple, symmetric, no JVD Heart: RRR, no murmur, no gallops, no rubs Respiratory: CTAB, no wheezes, no rales Gastrointestinal: soft, non-tender, non-distended Gastrointestinal - other findings: mild flank tenderness Extremities: no cyanosis, no clubbing, no edema Hosp A/P - Plan This is 78 year old male who presented with flank pain, found to have left hydroureteral nephrosis with stent placement Sepsis with left ureterohydronephrosis s/p ureteral stent placement - 2/2 blood culture growing Proteus - will repeat blood cultures - day 7 of augmentin currently MAT - continue tikosyn, apixaban, digoxin, metoprolol per EP GERD - protonix Severe kyphoscoliosis - no surgical option per patient Leukocytosis - WBC 11, will monitor ANemia - stable will monitor
[2019-02-23] MEDS: traMADol HCl 50 MG TAB PO PRN ×2 (01:07→20:59)
[2019-02-23 05:05] LABS: Phosphorus 2.7 mg/dL (2.3-4.7)
[2019-02-23] MEDS: Dofetilide 0.125 MG CAP PO SCH ×2 (05:10→17:01)
[2019-02-23 05:12] LABS: Anion Gap 9 mmol/L (10-20); BUN (Urea Nitrogen) 20 mg/dL (8.4-25.7); Calc. Creatinine Clearance 62 mL/min (70-130); Calcium 9.5 mg/dL (7.8-10.44); Carbon Dioxide 35 mmol/L (23-31); Chloride 101 mmol/L (98-107); Estimated GFR-MDRD 81; Glucose 106 mg/dL (83-110); Potassium 5.1 mmol/L (3.5-5.1); Sodium 140 mmol/L (136-145)
[2019-02-23] MEDS: predniSONE 20 MG TAB PO SCH (08:22)
[2019-02-23] MEDS: Potassium Chloride 10 MEQ TAB PO SCH ×2 (08:22→20:58)
[2019-02-23] MEDS: Ferrous Sulfate 325 MG TAB PO SCH (08:22)
[2019-02-23] MEDS: Furosemide 40 MG TAB PO SCH (08:22)
[2019-02-23] MEDS: Digoxin 0.125 MG TAB PO SCH (08:23)
[2019-02-23] MEDS: Apixaban 2.5 MG TAB PO SCH ×2 (08:23→20:57)
[2019-02-23] MEDS: Amoxicillin/Potassium Clav 875 MG TAB PO SCH ×2 (08:23→20:58)
--- NOTE | 2019-02-23 09:49 | PRG ---
DATE OF SERVICE: 02/23/2019 SUBJECTIVE: Jordy Rosa has no complaints. He is confused. He is talking about his daughter and moving into his daughter's house, but complaining that his daughter wants him to move back into the [facility]. Some of this actually may be factual because he cannot live alone or independently. I have also explained him he is not capable to take care of himself, so he would have to go to rehab anyway. OBJECTIVE: VITAL SIGNS: He is afebrile. Heart rate is 96, respiratory rate is 18, oximetry is 95%, and blood pressure 115/73. LUNGS: Clear. HEART: Regular rhythm. ABDOMEN: Soft. IMPRESSION: Proteus sepsis, admitted on 02/08. He has been in the hospital now [address] Desai's last notes were that he would like to do ureteroscopy and removal of his stones. We probably need to keep him in the hospital until this is done. The charge nurse was supposed to be notifying Dr. Desai of his ongoing presence in the hospital. It would be nice to get these issues addressed now if feasible since it is not going to be easy for him to get back over here either for cardiac clearance or an outpatient surgical procedure. Job ID: [id number]
--- NOTE | 2019-02-23 17:31 | PDOC.HOSPP ---
- Subjective Encounter Date: 02/23/19 Encounter Time: 14:00 Subjective: Patient has no complaints other than his chronic musculoskeletal pain and chronic shortness of breath. He denies flank pain - Objective Vital Signs & Weight: Vital Signs (12 hours) Temp Pulse Resp BP BP Pulse Ox 02/23/19 15:49 89 16 02/23/19 15:19 98.1 F 97 18 120/56 L 93 L 02/23/19 12:02 94 L 02/23/19 12:00 98.4 F 94 20 118/58 L 02/23/19 10:43 88 16 02/23/19 08:15 97.7 F 96 18 115/73 95 02/23/19 06:58 95 02/23/19 06:57 77 16 Weight Admit Weight 148 lb 14.4 oz Weight 140 lb 12.8 oz Most Recent Monitor Data Heart Rate from ECG 109 NIBP 95/46 NIBP BP-Mean 62 Respiration from ECG 19 SpO2 89 I&O: 02/22/19 02/23/19 02/24/19 06:59 06:59 06:59 Intake Total 2160 Output Total 2900 Balance -740 Result Diagrams: 02/18/19 05:02 02/23/19 04:00 Hospitalist ROS - Review of Systems Constitutional: denies: fever, chills - Medication Medications: Active Medications Generic Name Dose Route Start Last Admin Trade Name Freq PRN Reason Stop Dose Admin Albuterol/Ipratropium 3 ml 02/11/19 18:30 02/23/19 15:49 Duoneb NEB 3 ml [id number] TAHIRA Administration Amoxicillin/Clavulanate Potassium 875 mg 02/15/19 09:00 02/23/19 08:23 Augmentin PO 875 mg Q12HR TAHIRA Administration Apixaban 2.5 mg 02/14/19 21:00 02/23/19 08:23 Eliquis PO 2.5 mg BID TAHIRA Administration Cholecalciferol 5,000 units 02/11/19 09:00 02/23/19 08:23 Vitamin D3 PO 5,000 units DAILY TAHIRA Administration Digoxin 0.125 mg 02/13/19 09:00 02/23/19 08:23 Lanoxin PO 0.125 mg DAILY TAHIRA Administration Dofetilide 0.25 mg 02/09/19 18:00 02/23/19 17:01 Tikosyn PO 0.25 mg 0600,1800 TAHIRA Administration Ferrous Sulfate 325 mg 02/14/19 08:00 02/23/19 08:22 Feosol PO 325 mg QAM-WM TAHIRA Administration Furosemide 40 mg 02/14/19 07:30 02/23/19 08:22 Lasix PO 40 mg DAILY-AC TAHIRA Administration Haloperidol Lactate 5 mg 02/16/19 15:21 02/18/19 23:44 Haldol IM 5 mg Q4H PRN Administration Anxiety/Agitation Metoprolol Succinate 12.5 mg 02/15/19 21:00 02/23/19 08:23 Toprol Xl PO 12.5 mg BID TAHIRA Administration Morphine Sulfate 2 mg 02/08/19 01:43 02/14/19 20:47 Morphine SLOW IVP 2 mg Q4H PRN Administration Severe Pain (7-10) Pantoprazole Sodium 40 mg 02/14/19 09:00 02/23/19 08:23 Protonix PO 40 mg DAILY TAHIRA Administration Potassium Chloride 20 meq 02/16/19 09:00 02/23/19 08:22 Klor-Con 10 PO 20 meq BID TAHIRA Administration Prednisone 20 mg 02/16/19 08:00 02/23/19 08:22 Prednisone PO 20 mg QAM-WM TAHIRA Administration Sodium Chloride 10 ml 02/08/19 09:00 02/23/19 08:24 Flush - Normal Saline IVF 10 ml Q12HR TAHIRA Administration Sodium Chloride 10 ml 02/08/19 04:05 02/08/19 05:13 Flush - Normal Saline IVF 10 ml PRN PRN Administration Saline Flush Sterile Water 1 ml 02/11/19 04:38 02/15/19 05:00 Bacteriostatic Water FS 1 ml PRN PRN Administration RECONSTITUTION Tramadol HCl 50 mg 02/14/19 23:16 02/23/19 01:07 Ultram PO 50 mg Q4H PRN Administration Mild-Moderate Pain (1-6) - Exam General Appearance: NAD, awake alert, ill appearing Eye: PERRL, anicteric sclera ENT: normocephalic atraumatic, no oropharyngeal lesions Neck: supple, symmetric, no JVD, no thyromegaly Heart: RRR, no murmur, no gallops, no rubs Respiratory: CTAB, no wheezes, no rales, no ronchi Gastrointestinal: non-tender, non-distended. negative: soft Extremities: no cyanosis, no clubbing, no edema Skin: normal turgor, no lesions, no rashes Neurological: cranial nerve grossly intact, normal sensation to touch, no focal deficits, no new deficit Musculoskeletal - other findings: extensive bruising over arms. Extensive kyphoscoliosis Hosp A/P - Plan This is 78 year old male who presented with flank pain, found to have left hydroureteral nephrosis with stent placement Sepsis with left ureterohydronephrosis s/p ureteral stent placement - 2/ blood culture growing Proteus, will repeat blood cultures to evaluate clearance. - day 7 of augmentin currently, continue for another week - s/p stent placement on 02/08, per Dr. Desai he is on the schedule for stone removal on 03/01. - needs to dc with [facility]ond per urology - will d/c to [facility], try to arrange for tomorrow. Spoke with daughter who is okay with this, does not want patient to go back home with her Afib/MAT - continue tikosyn, apixaban, digoxin, metoprolol per EP - will need to hold anticoagulation for procedure few days prior GERD - protonix #Chronic Respiratory Failure secondary to kyphoscoliosis #History of Polio - on 2L of oxygen at baseline Severe kyphoscoliosis - no surgical option per patient Leukocytosis - WBC 11 on 02/18, repeat tomorrow ANemia - stable will monitor Code status: full code
[2019-02-24] MEDS: Dofetilide 0.125 MG CAP PO SCH ×2 (05:24→17:41)
[2019-02-24 06:59] LABS: Hemoglobin 8.8 g/dL (14.0-18.0); Mean Corpuscular HGB CONC 31.1 g/dL (32.0-36.0); Mean Corpuscular Hemoglobin 30.1 pg (27.0-31.0); Mean Corpuscular Volume 96.6 fL (78.0-98.0); Mean Platelet Volume 8.1 fL (7.4-10.4); Platelet Count 251 thou/uL (130-400); RBC Distribution Width 17.6 % (11.5-14.5); Red Blood Cell (RBC) Count 2.94 mill/uL (4.70-6.10); White Blood Cell (WBC) Count 7.3 thou/uL (4.8-10.8)
[2019-02-24 07:20] LABS: Phosphorus 2.9 mg/dL (2.3-4.7)
[2019-02-24 07:23] LABS: Anion Gap 10 mmol/L (10-20); BUN (Urea Nitrogen) 22 mg/dL (8.4-25.7); Calc. Creatinine Clearance 81 mL/min (70-130); Calcium 8.8 mg/dL (7.8-10.44); Carbon Dioxide 34 mmol/L (23-31); Chloride 99 mmol/L (98-107); Estimated GFR-MDRD Greater than 90; Glucose 86 mg/dL (83-110); Magnesium 1.9 mg/dL (1.6-2.6); Potassium 3.8 mmol/L (3.5-5.1); Sodium 139 mmol/L (136-145)
[2019-02-24] MEDS: Potassium Chloride 10 MEQ TAB PO SCH ×2 (08:15→21:10)
[2019-02-24] MEDS: Furosemide 40 MG TAB PO SCH (08:15)
[2019-02-24] MEDS: Ferrous Sulfate 325 MG TAB PO SCH (08:15)
[2019-02-24] MEDS: predniSONE 20 MG TAB PO SCH (08:15)
[2019-02-24] MEDS: Digoxin 0.125 MG TAB PO SCH (08:16)
[2019-02-24] MEDS: Amoxicillin/Potassium Clav 875 MG TAB PO SCH ×2 (08:16→21:10)
[2019-02-24] MEDS: Apixaban 2.5 MG TAB PO SCH ×2 (08:16→21:10)
--- NOTE | 2019-02-24 11:52 | PDOC.HOSPP ---
- Subjective Encounter Date: 02/24/19 Encounter Time: 11:51 Subjective: Patient seen and examined. No new complaints. No overnight events. feeling fine. No complaints. No N/V or fever or chills. - Objective Vital Signs & Weight: Vital Signs (12 hours) Temp Pulse Resp BP BP Pulse Ox 02/24/19 10:51 87 16 02/24/19 07:23 98.3 F 87 18 108/57 L 98 02/24/19 06:34 97 02/24/19 06:33 89 16 02/24/19 05:18 97.8 F 92 17 102/58 L 93 L 02/24/19 02:35 96 02/24/19 02:01 76 16 95 Weight Admit Weight 148 lb 14.4 oz Weight 140 lb 12.8 oz Most Recent Monitor Data Heart Rate from ECG 109 NIBP 95/46 NIBP BP-Mean 62 Respiration from ECG 19 SpO2 89 I&O: 02/23/19 02/24/19 02/25/19 06:59 06:59 05:59 Intake Total 2160 1670 Output Total 2900 2775 Balance -740 -1105 Result Diagrams: 02/24/19 06:41 02/24/19 06:41 Hospitalist ROS - Medication Medications: Active Medications Generic Name Dose Route Start Last Admin Trade Name Freq PRN Reason Stop Dose Admin Albuterol/Ipratropium 3 ml 02/11/19 18:30 02/24/19 10:51 Duoneb NEB 3 ml [id number] TAHIRA Administration Amoxicillin/Clavulanate Potassium 875 mg 02/15/19 09:00 02/24/19 08:16 Augmentin PO 875 mg Q12HR TAHIRA Administration Apixaban 2.5 mg 02/14/19 21:00 02/24/19 08:16 Eliquis PO 2.5 mg BID TAHIRA Administration Cholecalciferol 5,000 units 02/11/19 09:00 02/24/19 08:16 Vitamin D3 PO 5,000 units DAILY TAHIRA Administration Digoxin 0.125 mg 02/13/19 09:00 02/24/19 08:16 Lanoxin PO 0.125 mg DAILY TAHIRA Administration Dofetilide 0.25 mg 02/09/19 18:00 02/24/19 05:24 Tikosyn PO 0.25 mg 0600,1800 TAHIRA Administration Ferrous Sulfate 325 mg 02/14/19 08:00 02/24/19 08:15 Feosol PO 325 mg QAM-WM TAHIRA Administration Furosemide 40 mg 02/14/19 07:30 02/24/19 08:15 Lasix PO 40 mg DAILY-AC TAHIRA Administration Haloperidol Lactate 5 mg 02/16/19 15:21 02/18/19 23:44 Haldol IM 5 mg Q4H PRN Administration Anxiety/Agitation Metoprolol Succinate 12.5 mg 02/15/19 21:00 02/24/19 08:15 Toprol Xl PO 12.5 mg BID TAHIRA Administration Morphine Sulfate 2 mg 02/08/19 01:43 02/14/19 20:47 Morphine SLOW IVP 2 mg Q4H PRN Administration Severe Pain (7-10) Pantoprazole Sodium 40 mg 02/14/19 09:00 02/24/19 08:16 Protonix PO 40 mg DAILY TAHIRA Administration Potassium Chloride 20 meq 02/16/19 09:00 02/24/19 08:15 Klor-Con 10 PO 20 meq BID TAHIRA Administration Prednisone 20 mg 02/16/19 08:00 02/24/19 08:15 Prednisone PO 20 mg QAM-WM TAHIRA Administration Sodium Chloride 10 ml 02/08/19 09:00 02/24/19 08:16 Flush - Normal Saline IVF 10 ml Q12HR TAHIRA Administration Sodium Chloride 10 ml 02/08/19 04:05 02/08/19 05:13 Flush - Normal Saline IVF 10 ml PRN PRN Administration Saline Flush Sterile Water 1 ml 02/11/19 04:38 02/15/19 05:00 Bacteriostatic Water FS 1 ml PRN PRN Administration RECONSTITUTION Tramadol HCl 50 mg 02/14/19 23:16 02/23/19 20:59 Ultram PO 50 mg Q4H PRN Administration Mild-Moderate Pain (1-6) - Exam General Appearance: NAD Eye: anicteric sclera ENT: normocephalic atraumatic Neck: supple Heart: irregular Respiratory: CTAB Gastrointestinal: soft Extremities: no cyanosis Skin: normal turgor Psychiatric: normal affect Hosp A/P (1) Bacteremia Code(s): R78.81 - BACTEREMIA Status: Acute (2) Hydronephrosis of left kidney Code(s): N13.30 - UNSPECIFIED HYDRONEPHROSIS Status: Acute (3) Hypokalemia Code(s): E87.6 - HYPOKALEMIA Status: Acute (4) NICM (nonischemic cardiomyopathy) Code(s): I42.8 - OTHER CARDIOMYOPATHIES Status: Acute (5) Nephrolithiasis Status: Acute (6) Physical deconditioning Code(s): R53.81 - OTHER MALAISE Status: Acute (7) Sepsis Code(s): A41.9 - SEPSIS, UNSPECIFIED ORGANISM Status: Acute (8) UTI (urinary tract infection) Status: Acute (9) Urinary retention Code(s): R33.9 - RETENTION OF URINE, UNSPECIFIED Status: Acute (10) PAF (paroxysmal atrial fibrillation) Code(s): I48.0 - PAROXYSMAL ATRIAL FIBRILLATION Status: Chronic (11) COPD (chronic obstructive pulmonary disease) Status: Chronic Qualifiers: COPD type: COPD with acute exacerbation Qualified Code(s): J44.1 - Chronic obstructive pulmonary disease with (acute) exacerbation (12) Kyphoscoliosis Code(s): M41.9 - SCOLIOSIS, UNSPECIFIED Status: Chronic - Plan old records reviewed/req, continue antibiotics, PT/OT, social work manager, GI proph continue abx need to check with Dr Desai for further plans since he is still inpatient. Appreciated input from pulmonology. AM labs.
--- NOTE | 2019-02-24 14:13 | PRG ---
DATE OF SERVICE: 02/24/2019 SUBJECTIVE: Mr. Rosa was sitting up, eating lunch, feels fine, has no acute complaints. OBJECTIVE: VITAL SIGNS: Temperature 98.2, pulse 92, respirations 18, O2 saturation 95%, and blood pressure . HEENT: Unremarkable. NECK: No adenopathy or JVD. LUNGS: Clear. CARDIAC: S1, S2. Regular. CHEST: Severe kyphoscoliosis. EXTREMITIES: No clubbing, cyanosis, or edema. ASSESSMENT: Proteus sepsis, clinically improved on antibiotics. PLAN: The patient is continuing antibiotics, seems stable otherwise. No new recommendations. Job ID: [id number]
[2019-02-24] MEDS: traMADol HCl 50 MG TAB PO PRN (21:11)
[2019-02-25 05:22] LABS: Anion Gap 9 mmol/L (10-20); BUN (Urea Nitrogen) 18 mg/dL (8.4-25.7); Calc. Creatinine Clearance 86 mL/min (70-130); Calcium 8.7 mg/dL (7.8-10.44); Carbon Dioxide 36 mmol/L (23-31); Chloride 99 mmol/L (98-107); Estimated GFR-MDRD Greater than 90; Glucose 80 mg/dL (83-110); Sodium 140 mmol/L (136-145)
[2019-02-25 05:31] LABS: Phosphorus 3.4 mg/dL (2.3-4.7)
[2019-02-25] MEDS: Dofetilide 0.125 MG CAP PO SCH ×2 (06:20→18:04)
[2019-02-25] MEDS: Furosemide 40 MG TAB PO SCH (08:29)
[2019-02-25] MEDS: Digoxin 0.125 MG TAB PO SCH (08:29)
[2019-02-25] MEDS: Apixaban 2.5 MG TAB PO SCH ×2 (08:29→21:03)
[2019-02-25] MEDS: Potassium Chloride 10 MEQ TAB PO SCH ×2 (08:29→21:02)
[2019-02-25] MEDS: predniSONE 20 MG TAB PO SCH (08:29)
[2019-02-25] MEDS: Ferrous Sulfate 325 MG TAB PO SCH (08:29)
[2019-02-25] MEDS: Amoxicillin/Potassium Clav 875 MG TAB PO SCH (08:29)
--- NOTE | 2019-02-25 10:39 | PDOC.HOSPP ---
- Subjective Encounter Date: 02/25/19 Encounter Time: 10:37 Subjective: Patient seen and examined. No new complaints. No overnight events. feeling good. c/o chronic aches bothering him today. - Objective Vital Signs & Weight: Vital Signs (12 hours) Temp Pulse Resp BP BP Pulse Ox 02/25/19 07:59 90 16 02/25/19 07:30 98.1 F 90 18 108/62 98 02/25/19 06:15 98 20 104/53 L 95 02/25/19 03:00 98.6 F 98 20 98/47 L 98 02/25/19 02:08 95 02/25/19 01:38 ABLE BODIED SEAMAN 68 16 95 Weight Admit Weight 148 lb 14.4 oz Weight 140 lb 12.8 oz Most Recent Monitor Data Heart Rate from ECG 109 NIBP 95/46 NIBP BP-Mean 62 Respiration from ECG 19 SpO2 89 I&O: 02/24/19 02/25/19 02/26/19 07:59 06:59 06:59 Intake Total Output Total Balance Result Diagrams: 02/24/19 06:41 02/25/19 01:17 ABLE BODIED SEAMAN Hospitalist ROS - Medication Medications: Active Medications Generic Name Dose Route Start Last Admin Trade Name Freq PRN Reason Stop Dose Admin Albuterol/Ipratropium 3 ml 02/11/19 18:30 02/25/19 07:59 Duoneb NEB 3 ml [id number] TAHIRA Administration Amoxicillin/Clavulanate Potassium 875 mg 02/15/19 09:00 02/25/19 08:29 Augmentin PO 875 mg Q12HR TAHIRA Administration Apixaban 2.5 mg 02/14/19 21:00 02/25/19 08:29 Eliquis PO 2.5 mg BID TAHIRA Administration Cholecalciferol 5,000 units 02/11/19 09:00 02/25/19 08:29 Vitamin D3 PO 5,000 units DAILY TAHIRA Administration Digoxin 0.125 mg 02/13/19 09:00 02/25/19 08:29 Lanoxin PO 0.125 mg DAILY TAHIRA Administration Dofetilide 0.25 mg 02/09/19 18:00 02/25/19 06:20 Tikosyn PO 0.25 mg 0600,1800 TAHIRA Administration Ferrous Sulfate 325 mg 02/14/19 08:00 02/25/19 08:29 Feosol PO 325 mg QAM-WM TAHIRA Administration Furosemide 40 mg 02/14/19 07:30 02/25/19 08:29 Lasix PO 40 mg DAILY-AC TAHIRA Administration Haloperidol Lactate 5 mg 02/16/19 15:21 02/18/19 23:44 Haldol IM 5 mg Q4H PRN Administration Anxiety/Agitation Metoprolol Succinate 12.5 mg 02/15/19 21:00 02/25/19 08:29 Toprol Xl PO 12.5 mg BID TAHIRA Administration Morphine Sulfate 2 mg 02/08/19 01:43 02/14/19 20:47 Morphine SLOW IVP 2 mg Q4H PRN Administration Severe Pain (7-10) Pantoprazole Sodium 40 mg 02/14/19 09:00 02/25/19 08:29 Protonix PO 40 mg DAILY TAHIRA Administration Potassium Chloride 20 meq 02/16/19 09:00 02/25/19 08:29 Klor-Con 10 PO 20 meq BID TAHIRA Administration Prednisone 20 mg 02/16/19 08:00 02/25/19 08:29 Prednisone PO 20 mg QAM-WM TAHIRA Administration Sodium Chloride 10 ml 02/08/19 09:00 02/25/19 08:30 Flush - Normal Saline IVF 10 ml Q12HR TAHIRA Administration Sodium Chloride 10 ml 02/08/19 04:05 02/08/19 05:13 Flush - Normal Saline IVF 10 ml PRN PRN Administration Saline Flush Sterile Water 1 ml 02/11/19 04:38 02/15/19 05:00 Bacteriostatic Water FS 1 ml PRN PRN Administration RECONSTITUTION - Exam General Appearance: NAD Eye: anicteric sclera ENT: normocephalic atraumatic Neck: supple Heart: irregular Respiratory: CTAB Gastrointestinal: soft Extremities: no edema Skin: normal turgor Neurological: no weakness Musculoskeletal: normal tone Psychiatric: normal affect Hosp A/P (1) Bacteremia Code(s): R78.81 - BACTEREMIA Status: Acute (2) Hydronephrosis of left kidney Code(s): N13.30 - UNSPECIFIED HYDRONEPHROSIS Status: Acute (3) Hypokalemia Code(s): E87.6 - HYPOKALEMIA Status: Acute (4) NICM (nonischemic cardiomyopathy) Code(s): I42.8 - OTHER CARDIOMYOPATHIES Status: Acute (5) Nephrolithiasis Status: Acute (6) Physical deconditioning Code(s): R53.81 - OTHER MALAISE Status: Acute (7) Sepsis Code(s): A41.9 - SEPSIS, UNSPECIFIED ORGANISM Status: Acute (8) UTI (urinary tract infection) Status: Acute (9) Urinary retention Code(s): R33.9 - RETENTION OF URINE, UNSPECIFIED Status: Acute (10) PAF (paroxysmal atrial fibrillation) Code(s): I48.0 - PAROXYSMAL ATRIAL FIBRILLATION Status: Chronic (11) COPD (chronic obstructive pulmonary disease) Status: Chronic Qualifiers: COPD type: COPD with acute exacerbation Qualified Code(s): J44.1 - Chronic obstructive pulmonary disease with (acute) exacerbation (12) Kyphoscoliosis Code(s): M41.9 - SCOLIOSIS, UNSPECIFIED Status: Chronic - Plan old records reviewed/req, continue antibiotics, PT/OT, social insurance specialist continue abx check with Dr Desai in for further plans since he is still inpatient. Appreciate input from pulmonology.
[2019-02-25] MEDS: traMADol HCl 50 MG TAB PO PRN ×2 (11:04→21:03)
--- NOTE | 2019-02-25 12:48 | PRG ---
DATE OF SERVICE: 02/25/2019 SUBJECTIVE: He had no new complaints today. OBJECTIVE: VITAL SIGNS: Temperature 98.3, pulse 97, respirations 18, O2 saturation 95% on 2 L, and blood pressure 101/56. HEENT: Unremarkable. NECK: No adenopathy. No JVD. CHEST: Severe kyphoscoliosis, diminished, but clear breath sounds. CARDIAC: S1, S2. Regular. ABDOMEN: Soft. EXTREMITIES: No edema. LABORATORY DATA: Sodium 140, potassium 4, BUN 18, creatinine 0.6, and glucose 80. ASSESSMENT: 1. Proteus sepsis, which has clinically improved after antibiotics. 2. Stable pulmonary status. PLAN: At this point, I think we need disposition regarding discharge. I will go ahead and stop his antibiotics. Job ID: [id number]
[2019-02-26 05:16] LABS: Phosphorus 3.1 mg/dL (2.3-4.7)
[2019-02-26 05:47] LABS: Anion Gap 14 mmol/L (10-20); BUN (Urea Nitrogen) 21 mg/dL (8.4-25.7); Calc. Creatinine Clearance 76 mL/min (70-130); Calcium 8.8 mg/dL (7.8-10.44); Carbon Dioxide 30 mmol/L (23-31); Chloride 98 mmol/L (98-107); Estimated GFR-MDRD Greater than 90; Glucose 105 mg/dL (83-110); Potassium 4.2 mmol/L (3.5-5.1); Sodium 138 mmol/L (136-145)
[2019-02-26] MEDS: Dofetilide 0.125 MG CAP PO SCH ×2 (06:13→19:26)
[2019-02-26] MEDS: Potassium Chloride 10 MEQ TAB PO SCH ×2 (09:09→22:09)
[2019-02-26] MEDS: Digoxin 0.125 MG TAB PO SCH (09:09)
[2019-02-26] MEDS: Furosemide 40 MG TAB PO SCH (09:10)
[2019-02-26] MEDS: Apixaban 2.5 MG TAB PO SCH ×2 (09:10→22:09)
[2019-02-26] MEDS: predniSONE 20 MG TAB PO SCH (09:10)
[2019-02-26] MEDS: Ferrous Sulfate 325 MG TAB PO SCH (09:10)
[2019-02-26] MEDS: traMADol HCl 50 MG TAB PO PRN (09:15)
--- NOTE | 2019-02-26 15:48 | PRG ---
DATE OF SERVICE: 02/26/2019 Mr. Rosa is still in the hospital. I have discussed getting his stent removed with Dr. Desai. There are no new issues. We are basically waiting until this can be done, and then he could go to assisted living. I think he is as good as he will ever be at this point. exam findings. We will continue to follow, pending the surgery. Job ID: [id number]
--- NOTE | 2019-02-26 22:00 | PDOC.HOSPP ---
- Subjective Encounter Date: 02/26/19 Encounter Time: 15:00 Subjective: Patient seen and examined for Sepsis. No new CP/fever or urinary complaints. No new complaints. No overnight events - Objective Vital Signs & Weight: Vital Signs (12 hours) Temp Pulse Resp BP BP BP Pulse Ox 02/26/19 20:00 98.8 F 78 18 106/54 L 96 02/26/19 16:00 98.4 F 85 20 110/56 L 97 02/26/19 14:23 85 18 02/26/19 12:00 96 02/26/19 11:49 98.7 F 105 H 20 106/58 L 96 02/26/19 10:59 103 H 18 Weight Admit Weight 148 lb 14.4 oz Weight 135 lb 8 oz Most Recent Monitor Data Heart Rate from ECG 109 NIBP 95/46 NIBP BP-Mean 62 Respiration from ECG 19 SpO2 89 I&O: 02/25/19 02/26/19 02/27/19 06:59 06:59 06:59 Intake Total 1450 720 Output Total 2700 1600 Balance -1250 -880 Result Diagrams: 02/27/19 04:34 02/27/19 04:34 EKG Reviewed by me: Yes (Tele SR) Hospitalist ROS - Review of Systems Respiratory: denies: cough, dry, shortness of breath, hemoptysis, SOB with excertion, pleuritic pain, sputum, wheezing, other Cardiovascular: denies: chest pain, palpitations, orthopnea, paroxysmal noc. dyspnea, edema, light headedness, other - Medication Medications: Active Medications Generic Name Dose Route Start Last Admin Trade Name Freq PRN Reason Stop Dose Admin Albuterol/Ipratropium 3 ml 02/11/19 18:30 02/26/19 19:03 Duoneb NEB 3 ml [id number] TAHIRA Administration Apixaban 2.5 mg 02/14/19 21:00 02/26/19 09:10 Eliquis PO 2.5 mg BID TAHIRA Administration Cholecalciferol 5,000 units 02/11/19 09:00 02/26/19 09:09 Vitamin D3 PO 5,000 units DAILY TAHIRA Administration Digoxin 0.125 mg 02/13/19 09:00 02/26/19 09:09 Lanoxin PO 0.125 mg DAILY TAHIRA Administration Dofetilide 0.25 mg 02/09/19 18:00 02/26/19 19:26 Tikosyn PO 0.25 mg 0600,1800 TAHIRA Administration Ferrous Sulfate 325 mg 02/14/19 08:00 02/26/19 09:10 Feosol PO 325 mg QAM-WM TAHIRA Administration Furosemide 40 mg 02/14/19 07:30 02/26/19 09:10 Lasix PO 40 mg DAILY-AC TAHIRA Administration Haloperidol Lactate 5 mg 02/16/19 15:21 02/18/19 23:44 Haldol IM 5 mg Q4H PRN Administration Anxiety/Agitation Metoprolol Succinate 12.5 mg 02/15/19 21:00 02/26/19 09:09 Toprol Xl PO 12.5 mg BID TAHIRA Administration Pantoprazole Sodium 40 mg 02/14/19 09:00 02/26/19 09:10 Protonix PO 40 mg DAILY TAHIRA Administration Potassium Chloride 20 meq 02/16/19 09:00 02/26/19 09:09 Klor-Con 10 PO 20 meq BID TAHIRA Administration Prednisone 20 mg 02/16/19 08:00 02/26/19 09:10 Prednisone PO 20 mg QAM-WM TAHIRA Administration Sodium Chloride 10 ml 02/08/19 09:00 02/26/19 09:11 Flush - Normal Saline IVF 10 ml Q12HR TAHIRA Administration Sodium Chloride 10 ml 02/08/19 04:05 02/08/19 05:13 Flush - Normal Saline IVF 10 ml PRN PRN Administration Saline Flush Sterile Water 1 ml 02/11/19 04:38 02/15/19 05:00 Bacteriostatic Water FS 1 ml PRN PRN Administration RECONSTITUTION Tramadol HCl 50 mg 02/25/19 10:42 02/26/19 09:15 Ultram PO 50 mg Q6H PRN Administration Pain - Exam General Appearance: NAD Neck: supple, no JVD Heart: RRR, no gallops, no rubs Respiratory: CTAB, no wheezes, no ronchi Gastrointestinal: soft, non-tender, normal bowel sounds Extremities: no edema Hosp A/P - Plan DVT proph w/SCDs Severe Sepsis due to Complicated UTI/left ureteral stone with left hydronephrosis Proteus bacteremia COPD/Chronic Resp failure on home O2 Chronic Atrial fib - on anticoag Nonischemic CM CKD 3 PLAN: Transfer to medical Await stent removal AM labs Cont other meds
[2019-02-27] MEDS: traMADol HCl 50 MG TAB PO PRN ×2 (01:31→08:11)
[2019-02-27 05:02] LABS: #Monocytes 0.7 thou/uL (0.11-0.59); #Neutrophils 4.1 thou/uL (1.40-6.50); %Basophils 0.8 % (0.0-1.0); %Eosinophils 0.6 % (0.0-10.0); %Lymphocytes 16.5 % (21.0-51.0); %Monocytes 12.3 % (0.0-10.0); %Neutrophils 69.9 % (42.0-75.0); Hemoglobin 8.4 g/dL (14.0-18.0); Mean Corpuscular HGB CONC 30.4 g/dL (32.0-36.0); Mean Corpuscular Hemoglobin 29.1 pg (27.0-31.0); Mean Platelet Volume 8.3 fL (7.4-10.4); Platelet Count 195 thou/uL (130-400); RBC Distribution Width 16.9 % (11.5-14.5); Red Blood Cell (RBC) Count 2.88 mill/uL (4.70-6.10); White Blood Cell (WBC) Count 5.8 thou/uL (4.8-10.8)
[2019-02-27 05:27] LABS: Phosphorus 3.3 mg/dL (2.3-4.7)
[2019-02-27 05:29] LABS: Anion Gap 11 mmol/L (10-20); BUN (Urea Nitrogen) 21 mg/dL (8.4-25.7); Calc. Creatinine Clearance 78 mL/min (70-130); Calcium 8.8 mg/dL (7.8-10.44); Carbon Dioxide 32 mmol/L (23-31); Chloride 99 mmol/L (98-107); Estimated GFR-MDRD Greater than 90; Glucose 91 mg/dL (83-110); Potassium 4.3 mmol/L (3.5-5.1); Sodium 138 mmol/L (136-145)
[2019-02-27] MEDS: Dofetilide 0.125 MG CAP PO SCH ×2 (05:59→20:15)
[2019-02-27] MEDS: Potassium Chloride 10 MEQ TAB PO SCH ×2 (08:08→20:15)
[2019-02-27] MEDS: predniSONE 20 MG TAB PO SCH (08:09)
[2019-02-27] MEDS: Ferrous Sulfate 325 MG TAB PO SCH (08:09)
[2019-02-27] MEDS: Furosemide 40 MG TAB PO SCH (08:13)
[2019-02-27] MEDS: Apixaban 2.5 MG TAB PO SCH ×2 (08:16→20:14)
[2019-02-27] MEDS: Digoxin 0.125 MG TAB PO SCH (08:20)
[2019-02-27] MEDS ORDERED: Acetaminophen 325 MG TAB PO PRN (11:23)
[2019-02-27] MEDS ORDERED: HYDROcodone/Acetaminophen 5/325 mg Tablet PO SCH (11:30)
[2019-02-27 13:11] VITALS: BMI 21.9
[2019-02-27] MEDS: Acetaminophen 325 MG TAB PO SCH ×2 (17:32→20:15)
--- NOTE | 2019-02-27 18:52 | PDOC.HOSPP ---
- Subjective Encounter Date: 02/27/19 Encounter Time: 12:30 Subjective: Patient seen and examined for Sepsis. No CP/SOB/fever/urinary complaints. No new complaints. No overnight events - Objective Vital Signs & Weight: Vital Signs (12 hours) Temp Pulse Resp BP Pulse Ox Pulse Ox Pulse Ox 02/27/19 18:42 65 16 02/27/19 14:53 70 16 02/27/19 12:00 98.5 F 89 20 103/51 L 96 02/27/19 10:59 63 16 02/27/19 08:38 94 L 96 02/27/19 08:20 99 02/27/19 07:55 98.4 F 89 22 H 110/55 L 96 Weight Admit Weight 148 lb 14.4 oz Weight 135 lb 8 oz Most Recent Monitor Data Heart Rate from ECG 109 NIBP 95/46 NIBP BP-Mean 62 Respiration from ECG 19 SpO2 89 I&O: 02/26/19 02/27/19 02/28/19 06:59 06:59 06:59 Intake Total 1450 1200 Output Total 2700 2575 Balance -1250 -1375 Result Diagrams: 02/27/19 04:34 02/27/19 04:34 Hospitalist ROS - Review of Systems Respiratory: denies: cough, dry, shortness of breath, hemoptysis, SOB with excertion, pleuritic pain, sputum, wheezing, other Cardiovascular: denies: chest pain, palpitations, orthopnea, paroxysmal noc. dyspnea, edema, light headedness, other - Medication Medications: Active Medications Generic Name Dose Route Start Last Admin Trade Name Freq PRN Reason Stop Dose Admin Acetaminophen 650 mg 02/27/19 15:00 02/27/19 17:32 Tylenol PO Not Given TID TAHIRA Albuterol/Ipratropium 3 ml 02/11/19 18:30 02/27/19 18:42 Duoneb NEB 3 ml [id number] TAHIRA Administration Apixaban 2.5 mg 02/14/19 21:00 02/27/19 08:16 Eliquis PO 2.5 mg BID TAHIRA Administration Cholecalciferol 5,000 units 02/11/19 09:00 02/27/19 08:14 Vitamin D3 PO 5,000 units DAILY TAHIRA Administration Digoxin 0.125 mg 02/13/19 09:00 02/27/19 08:20 Lanoxin PO 0.125 mg DAILY TAHIRA Administration Dofetilide 0.25 mg 02/09/19 18:00 02/27/19 05:59 Tikosyn PO 0.25 mg 0600,1800 TAHIRA Administration Ferrous Sulfate 325 mg 02/14/19 08:00 02/27/19 08:09 Feosol PO 325 mg QAM-WM TAHIRA Administration Furosemide 40 mg 02/14/19 07:30 02/27/19 08:13 Lasix PO 40 mg DAILY-AC TAHIRA Administration Haloperidol Lactate 5 mg 02/16/19 15:21 02/18/19 23:44 Haldol IM 5 mg Q4H PRN Administration Anxiety/Agitation Metoprolol Succinate 12.5 mg 02/15/19 21:00 02/27/19 08:14 Toprol Xl PO 12.5 mg BID TAHIRA Administration Pantoprazole Sodium 40 mg 02/14/19 09:00 02/27/19 08:15 Protonix PO 40 mg DAILY TAHIRA Administration Potassium Chloride 20 meq 02/16/19 09:00 02/27/19 08:08 Klor-Con 10 PO 20 meq BID TAHIRA Administration Prednisone 20 mg 02/16/19 08:00 02/27/19 08:09 Prednisone PO 20 mg QAM-WM TAHIRA Administration Sodium Chloride 10 ml 02/08/19 09:00 02/27/19 08:17 Flush - Normal Saline IVF 10 ml Q12HR TAHIRA Administration Sodium Chloride 10 ml 02/08/19 04:05 02/08/19 05:13 Flush - Normal Saline IVF 10 ml PRN PRN Administration Saline Flush Sterile Water 1 ml 02/11/19 04:38 02/15/19 05:00 Bacteriostatic Water FS 1 ml PRN PRN Administration RECONSTITUTION - Exam General Appearance: NAD Neck: supple, no JVD Heart: RRR, no gallops Respiratory: CTAB, no rales Gastrointestinal: soft, non-tender, normal bowel sounds Extremities: no edema Hosp A/P - Plan Severe Sepsis due to Complicated UTI/left ureteral stone with left hydronephrosis - s/p stent placement. Proteus bacteremia - completed Atbx COPD/Chronic Resp failure on home O2 Chronic Atrial fib - on anticoag Nonischemic CM CKD 3 PLAN: Await stent removal on Cancel daily labs Cont Digoxin/BB/Tikosyn and other meds as above
--- NOTE | 2019-02-27 19:18 | PRG ---
DATE OF SERVICE: 02/27/2019 SUBJECTIVE: Jordy Rosa has no new complaints. He is in no distress. He was complaining a little of his right wrist. He said he has had gout in the past, it has been like this. OBJECTIVE: VITAL SIGNS: He is afebrile. Heart rate 70, respiratory rate 16, oximetry is 96% on 2 L. LUNGS: Clear. HEART: Regular rhythm. ABDOMEN: Soft. It would be unusual for him while on 20 mg a day of prednisone. We will have to watch this. He is certainly at risk for developing a septic arthritis after being bacteremic, but this is not overly hot, red, or tender at this point in time. We are awaiting removal of his stent and urological addressing of his stone by Dr. Desai. We will continue to follow. Job ID: [id number]
[2019-02-28] MEDS: traMADol HCl 50 MG TAB PO PRN ×2 (02:45→08:37)
[2019-02-28] MEDS: Dofetilide 0.125 MG CAP PO SCH ×2 (06:08→17:40)
[2019-02-28] MEDS: Ferrous Sulfate 325 MG TAB PO SCH (08:38)
[2019-02-28] MEDS: Furosemide 40 MG TAB PO SCH (08:38)
[2019-02-28] MEDS: predniSONE 20 MG TAB PO SCH (08:39)
[2019-02-28] MEDS: Acetaminophen 325 MG TAB PO SCH ×3 (08:39→20:20)
[2019-02-28] MEDS: Digoxin 0.125 MG TAB PO SCH (08:42)
[2019-02-28] MEDS: Potassium Chloride 10 MEQ TAB PO SCH ×2 (08:43→20:20)
[2019-02-28] MEDS: Apixaban 2.5 MG TAB PO SCH ×2 (08:44→20:21)
--- NOTE | 2019-02-28 10:51 | PRG ---
DATE OF SERVICE: 02/28/2019 SUBJECTIVE: The patient states he is feeling fine. He is not having any bother with his catheter or his stent. He denies any significant flank pain. He is not having any significant bladder spasms. OBJECTIVE: VITAL SIGNS: Temperature 98.2, pulse 71, respirations 18, blood pressure 120/62, saturations 92% on 3 L nasal cannula. GENERAL: No apparent distress. Communicative and alert. CARDIOVASCULAR: Irregular rhythm. Normal rate. Normal S1 and S2. Symmetric pulses. ABDOMEN: Soft, nontender, nondistended. Positive bowel sounds. MUSCULOSKELETAL: Significant deformities in the hands and along the spine, significantly contracted. Severe scoliosis. SKIN: Warm, dry. No rashes or lesions. Poor turgor. : Bernabe catheter in place, draining a slightly turbid yellow urine. EXTREMITIES: No clubbing or cyanosis. 1+ edema bilaterally. LABORATORY EVALUATION: The full set of labs are in the [facility] system, which I have reviewed. Of note, the patient's white count is 5.8 with hemoglobin of 8.4. Creatinine is currently 0.7. Prior blood cultures had demonstrated Proteus with sensitivity to ceftriaxone. Current blood cultures are negative. ASSESSMENT AND PLAN: A 78-year-old white male with history of urosepsis secondary to 5 to 6 and a 4 mm left ureteral stones, status post ureteral stent placement with poorly contractile bladder with incomplete bladder emptying, managed with Bernabe catheter. His infection has been adequately treated now with 2 weeks of antibiotics. I will start him on Rocephin again due to his indwelling Bernabe catheter, preventative treatment for urinary infection for his ureteroscopy. We will plan to remove his catheter and his stent at the same time intraoperatively tomorrow and perform ureteroscopy to remove both stones and then subsequently place a stent with a string, which can be removed at his [facility] facility at a later date. I would recommend the Bernabe catheter to be placed back in after surgery until after his stent is removed, at which point, the patient can decide if he wants to keep an indwelling Bernabe catheter in indefinitely, consider an SP tube or take the catheter out and have incomplete bladder emptying, which would put him at risk for urinary tract infections, frequency, and voiding problems. The patient wants to think about this for now, but has agreed to proceed forward with the ureteroscopy. I went over the surgery in detail with him and his daughter. The risks and benefits of the surgery were discussed. Risks, which include, but are not limited to bleeding, infection, damage to the ureter, ureteral stricture, ureteral perforation, damage to the kidneys or bladder, inability to remove the stones, and need for further procedures. He understands the risks and states he is willing to proceed forward. We will set him up for morning for the surgery. It is fine for him to remain on his Eliquis as the surgery can be done while on Eliquis. I will go and start him on antibiotics now. Keep his indwelling Bernabe catheter in for now and plan for surgery in the morning. Job ID: [id number]
[2019-02-28] MEDS: cefTRIAXone\\ROCEPHIN 1 GM in Sodium Chloride 0.9% 100 ML IVPB SCH (11:09)
--- NOTE | 2019-02-28 15:20 | PRG ---
DATE OF SERVICE: 02/28/2019 SUBJECTIVE: Jordy Rosa has no complaints. He wants to get a new CPAP device. I offered for him to wear our AutoPAP device, but he does not like the mask and decline to wear it. He is still awaiting Urology's input. OBJECTIVE: VITAL SIGNS: Stable. Heart rate is in the 70s, respiratory rate in the teens, sats 92% on 3 liters, blood pressure . LUNGS: Clear. IMPRESSION: 1. Status post sepsis with Proteus secondary to nephrolithiasis, now with ureteral stent in place. 2. Severe kyphoscoliosis secondary to polio when he was young. 3. Asthma, stable. 4. Chronic respiratory failure. It is stable, treated with nighttime at home. His CPAP is not working. Once he is discharged, this machine replaced via his daughter. He is stable for the procedure that is considering. He probably can be discharged today after the procedure. Job ID: [id number]
--- NOTE | 2019-02-28 18:32 | PDOC.HOSPP ---
- Subjective Encounter Date: 02/28/19 Encounter Time: 09:00 Subjective: Patient seen and examined for Sepsis. No fever/chills/N/V. No new complaints. No overnight events - Objective Vital Signs & Weight: Vital Signs (12 hours) Temp Pulse Resp BP Pulse Ox 02/28/19 14:32 70 18 93 L 02/28/19 08:42 70 02/28/19 08:04 71 18 92 L 02/28/19 08:00 98.2 F 70 16 120/62 93 L Weight Admit Weight 148 lb 14.4 oz Weight 135 lb 8 oz Most Recent Monitor Data Heart Rate from ECG 109 NIBP 95/46 NIBP BP-Mean 62 Respiration from ECG 19 SpO2 89 I&O: 02/27/19 02/28/19 03/01/19 06:59 06:59 06:59 Intake Total 1200 1920 Output Total 2575 1900 Balance -1375 20 Result Diagrams: 02/27/19 04:34 02/27/19 04:34 Hospitalist ROS - Review of Systems Cardiovascular: denies: chest pain, palpitations, orthopnea, paroxysmal noc. dyspnea, edema, light headedness, other Gastrointestinal: denies: nausea, vomiting, abdominal pain, diarrhea, constipation, melena, hematochezia, other - Medication Medications: Active Medications Generic Name Dose Route Start Last Admin Trade Name Buzz PRN Reason Stop Dose Admin Acetaminophen 650 mg 02/27/19 15:00 02/28/19 15:30 Tylenol PO 650 mg TID TAHIRA Administration Albuterol/Ipratropium 3 ml 02/11/19 18:30 02/28/19 14:32 Duoneb NEB 3 ml [id number] TAHIRA Administration Apixaban 2.5 mg 02/14/19 21:00 02/28/19 08:44 Eliquis PO 2.5 mg BID TAHIRA Administration Cholecalciferol 5,000 units 02/11/19 09:00 02/28/19 08:40 Vitamin D3 PO 5,000 units DAILY TAHIRA Administration Digoxin 0.125 mg 02/13/19 09:00 02/28/19 08:42 Lanoxin PO 0.125 mg DAILY TAHIRA Administration Dofetilide 0.25 mg 02/09/19 18:00 02/28/19 17:40 Tikosyn PO 0.25 mg 0600,1800 TAHIRA Administration Ferrous Sulfate 325 mg 02/14/19 08:00 02/28/19 08:38 Feosol PO 325 mg QAM-WM TAHIRA Administration Furosemide 40 mg 02/14/19 07:30 02/28/19 08:38 Lasix PO 40 mg DAILY-AC TAHIRA Administration Ceftriaxone Sodium 1 gm/ 100 mls @ 200 mls/hr 02/28/19 11:00 02/28/19 11:09 Sodium Chloride IVPB 100 mls 1100 TAHIRA Administration Metoprolol Succinate 12.5 mg 02/15/19 21:00 02/28/19 08:43 Toprol Xl PO 12.5 mg BID TAHIRA Administration Pantoprazole Sodium 40 mg 02/14/19 09:00 02/28/19 08:43 Protonix PO 40 mg DAILY TAHIRA Administration Potassium Chloride 20 meq 02/16/19 09:00 02/28/19 08:43 Klor-Con 10 PO 20 meq BID TAHIRA Administration Prednisone 20 mg 02/16/19 08:00 02/28/19 08:39 Prednisone PO 20 mg QAM-WM TAHIRA Administration Sodium Chloride 10 ml 02/08/19 09:00 02/28/19 08:45 Flush - Normal Saline IVF 10 ml Q12HR TAHIRA Administration Sodium Chloride 10 ml 02/08/19 04:05 02/08/19 05:13 Flush - Normal Saline IVF 10 ml PRN PRN Administration Saline Flush Sterile Water 1 ml 02/11/19 04:38 02/15/19 05:00 Bacteriostatic Water FS 1 ml PRN PRN Administration RECONSTITUTION Tramadol HCl 50 mg 02/27/19 11:24 02/28/19 08:37 Ultram PO 50 mg Q4H PRN Administration Moderate Pain - Exam General Appearance: NAD Neck: supple, no JVD Heart: RRR, no gallops Respiratory: CTAB, no rales Gastrointestinal: soft, non-tender, normal bowel sounds Extremities: no edema Hosp A/P - Plan Severe Sepsis due to Complicated UTI/left ureteral stone with left hydronephrosis - s/p stent placement. Proteus bacteremia - completed Atbx COPD/Chronic Resp failure on home O2 Chronic Atrial fib - on anticoag Nonischemic CM CKD 3 MADELINE Chronic Resp failure on home O2 HS PLAN: Ureterosscopy in AM Cont Digoxin/BB/Tikosyn Cont other meds as above NPO past MN
[2019-03-01] MEDS: Sodium Chloride 0.9% 1,000 ML IV SCH (01:45)
[2019-03-01] MEDS: Dofetilide 0.125 MG CAP PO SCH ×2 (05:25→19:58)
[2019-03-01] MEDS: traMADol HCl 50 MG TAB PO PRN ×2 (05:41→20:51)
[2019-03-01] MEDS: Furosemide 40 MG TAB PO SCH (07:30)
[2019-03-01] MEDS: Ferrous Sulfate 325 MG TAB PO SCH (08:00)
[2019-03-01] MEDS: predniSONE 20 MG TAB PO SCH (08:00)
[2019-03-01] MEDS: Potassium Chloride 10 MEQ TAB PO SCH ×2 (09:00→20:50)
[2019-03-01] MEDS: Apixaban 2.5 MG TAB PO SCH ×2 (09:00→20:50)
[2019-03-01] MEDS: Digoxin 0.125 MG TAB PO SCH (09:00)
[2019-03-01] MEDS: Acetaminophen 325 MG TAB PO SCH ×3 (09:00→20:50)
[2019-03-01] MEDS ORDERED: PHENYLEPHRINE-NS 100 MCG/ML 10 ML SYRINGE ONE (10:58)
[2019-03-01] MEDS ORDERED: PROPOFOL 200 MG/20 ML VIAL ONE (10:58)
[2019-03-01] MEDS ORDERED: Rocuronium Bromide 10 MG/ML (10ML VIAL) ONE (10:58)
[2019-03-01] MEDS ORDERED: Glycopyrrolate 0.2 MG/ML 5 ML SYRINGE ONE (10:58)
[2019-03-01] MEDS ORDERED: Lidocaine 1% PF 5 ML VIAL ONE (10:58)
[2019-03-01] MEDS: cefTRIAXone\\ROCEPHIN 1 GM in Sodium Chloride 0.9% 100 ML IVPB SCH (12:00)
[2019-03-01] MEDS ORDERED: B & O ONE (13:16)
[2019-03-01] MEDS ORDERED: Iothalamate Meglumine 60% 50 ML VIAL FS ONE (13:16)
[2019-03-01] MEDS ORDERED: Fentanyl 100 MCG/2 ML VIAL ONE (13:19)
[2019-03-01] MEDS ORDERED: Phenylephrine HCL 10 MG/ML VIAL ONE (14:06)
--- NOTE | 2019-03-01 15:00 | PRG ---
DATE OF SERVICE: 03/01/2019 SUBJECTIVE: The patient states that he is feeling fine. He is not have any bladder spasms or pain. He is scheduled for surgery today. OBJECTIVE: VITAL SIGNS: Stable. GENERAL: No apparent distress. Communicative and alert. CARDIOVASCULAR: Regular rate and regular rhythm. CHEST: No increased work of breathing. ABDOMEN: Soft, nontender, and nondistended. : Bernabe catheter in place, draining clear yellow urine. EXTREMITIES: No clubbing, cyanosis, or edema. MUSCULOSKELETAL: Severe deformities and joint contractures. ASSESSMENT AND PLAN: A 78-year-old white male with multiple comorbidities with left ureteral stones and previously treated urosepsis, which is now ready for stone removal. I have gone over the surgery with him and his daughter. He is in agreement to proceed forward. He states that he wishes to remain DNR that he would undergo chemical resuscitative measures, but not chest compressions or wishes to remain intubated for a prolonged period of time. We have already discussed the risks and benefits of surgery and he has agreed to proceed forward. We are going to go to the OR today for removal of the stones. I will replace the stent afterwards with a string. The daughter stated that she would like the Bernabe ultimately removed and left out in the [facility]. The Bernabe can be removed with the stent at the same time and approximately 5 to 7 days after the surgery. Job ID: [id number]
--- NOTE | 2019-03-01 17:18 | OP ---
DATE OF PROCEDURE: 03/01/2019 SERVICES: Urology PREOPERATIVE DIAGNOSIS: Left ureteral stones. POSTOPERATIVE DIAGNOSIS: Left ureteral stones. PROCEDURES PERFORMED: Left ureteroscopy, laser lithotripsy, basket extraction of stones, and placement of a 6 x 26 double-J stent with string attached. INDICATIONS FOR PROCEDURE: Mr. Rosa is a 78-year-old white male with multiple comorbidities, who came into the ER three weeks ago with urosepsis and left ureteral stone. He underwent emergent left ureteral stent placement at that time. He has recovered and remained in the hospital due to his comorbidities and has received two weeks of antibiotics. He is now being brought back for definitive stone management for ureteroscopy and removal of the stones with all risks and benefits discussed. He and his daughter have agreed to proceed forward. DESCRIPTION OF PROCEDURE: After identification of armband and verification of consent, the patient was brought back to the operating room. He underwent general anesthesia with endotracheal intubation. He was then placed in dorsal lithotomy position, and prepped and draped in usual sterile fashion. After appropriate time-out, a lubricated 22-Vietnamese rigid cystoscope was introduced per urethra into the bladder. There were no strictures and the prostate was wide open without any evidence of hypertrophy. It actually looks like he may have had radiation or TUR previously. The bladder does demonstrate some evidence of trabeculation and cellules. There were a few stones within the bladder. The stent was grasped with flexible graspers and brought to the level of the urethral meatus. A 0.035 Sensor wire was advanced through the ureteral stent into the level of renal pelvis. The stent was then removed and discarded. The wire was affixed to the drapes as a safety wire and then a semi-rigid ureteroscope was then passed alongside the Sensor wire through the urethra into the bladder and then into the left ureter. In the distal ureter, the two stones were encountered which were previously seen on CT scan. Using a 365-micron laser fiber, the stones were fragmented into smaller pieces and then using a 1.9-Vietnamese ZeroTip Nitinol basket, the pieces were removed. They were so small that it was difficult to submit for routine pathologic evaluation, although there were some fragments that were extremely little. Final ureteroscopy did not demonstrate any other additional stones up to the level of the mid ureter and prior CT had not demonstrated any stones above this level. Satisfied, the stones removed, the ureteroscope was removed, and the cystoscope was then backloaded back into the bladder. A 6 x 26 double-J stent was advanced over the Sensor wire up to the level of renal pelvis, but the patient began bucking as he started to get light on his anesthesia and the stent and wire came out. As such, the wire had to be reinserted back into the renal pelvis and the stent readvanced over the Sensor wire up to the kidney. The wire was then removed leaving a good curl in the kidney and a good curl in the bladder. The cystoscope was then removed with the bladder left full with a string emanating from the urethra. A 16-Vietnamese Bernabe catheter was placed alongside the string into the bladder with 10 mL of sterile water placed into the balloon. The string was secured to the catheter which can be removed together in approximately 5 to 7 days. The catheter was affixed to gravity bag. A B and O suppository were placed. The patient was then taken out of positioning, awakened, taken to PACU for recovery in stable condition. COMPLICATIONS: None. ESTIMATED BLOOD LOSS: Minimal. RETAINED TUBES AND DRAINS: A 6 x 26 double-J stent on the left and a 16-Vietnamese Bernabe catheter. SPECIMENS: Stone for stone analysis. DISPOSITION: The patient will be kept in the hospital overnight on telemetry for monitoring. He can be discharged home tomorrow and will follow up with me on an outpatient basis. Job ID: [id number]
[2019-03-01] MEDS: Ondansetron PF 4 MG/2 ML Vial SLOW IVP PRN (20:53)
--- NOTE | 2019-03-01 23:04 | PDOC.HOSPP ---
- Subjective Encounter Date: 03/01/19 Encounter Time: 09:00 Subjective: Patient seen and examined for Sepsis. No new complaints. No overnight events - Objective Vital Signs & Weight: Vital Signs (12 hours) Temp Pulse Resp BP Pulse Ox 03/01/19 22:38 96 03/01/19 22:37 96 03/01/19 20:32 97.9 F 85 20 114/62 95 03/01/19 19:29 98.6 F 106 H 18 89/53 L 97 03/01/19 19:14 106 H 20 97 Weight Admit Weight 148 lb 14.4 oz Weight 135 lb 8 oz Most Recent Monitor Data Heart Rate from ECG 109 NIBP 95/46 NIBP BP-Mean 62 Respiration from ECG 19 SpO2 89 I&O: 02/28/19 03/01/19 03/02/19 06:59 06:59 06:59 Intake Total 1920 1840 1193 Output Total 1900 1150 Balance 20 690 1193 Result Diagrams: 02/27/19 04:34 02/27/19 04:34 Hospitalist ROS - Review of Systems Respiratory: denies: cough, dry, shortness of breath, hemoptysis, SOB with excertion, pleuritic pain, sputum, wheezing, other Cardiovascular: denies: chest pain, palpitations, orthopnea, paroxysmal noc. dyspnea, edema, light headedness, other - Medication Medications: Active Medications Generic Name Dose Route Start Last Admin Trade Name Freq PRN Reason Stop Dose Admin Acetaminophen 650 mg 02/27/19 15:00 03/01/19 20:50 Tylenol PO 650 mg TID TAHIRA Administration Albuterol/Ipratropium 3 ml 02/11/19 18:30 03/01/19 22:37 Duoneb NEB 3 ml [id number] TAHIRA Administration Apixaban 2.5 mg 02/14/19 21:00 03/01/19 20:50 Eliquis PO 2.5 mg BID TAHIRA Administration Cholecalciferol 5,000 units 02/11/19 09:00 03/01/19 09:00 Vitamin D3 PO Not Given DAILY TAHIRA Digoxin 0.125 mg 02/13/19 09:00 03/01/19 09:00 Lanoxin PO Not Given DAILY TAHIRA Dofetilide 0.25 mg 02/09/19 18:00 03/01/19 19:58 Tikosyn PO 0.25 mg 0600,1800 TAHIRA Administration Ferrous Sulfate 325 mg 02/14/19 08:00 03/01/19 08:00 Feosol PO Not Given QAM-WM TAHIRA Furosemide 40 mg 02/14/19 07:30 03/01/19 07:30 Lasix PO Not Given DAILY-AC TAHIRA Ceftriaxone Sodium 1 gm/ 100 mls @ 200 mls/hr 02/28/19 11:00 03/01/19 12:00 Sodium Chloride IVPB Not Given 1100 TAHIRA Sodium Chloride 1,000 mls @ 70 mls/hr 03/01/19 00:01 03/01/19 01:45 Normal Saline 0.9% IV 1,000 mls .[id number] TAHIRA Administration Metoprolol Succinate 12.5 mg 02/15/19 21:00 03/01/19 20:51 Toprol Xl PO 12.5 mg BID TAHIRA Administration Ondansetron HCl 4 mg 02/09/19 13:11 03/01/19 20:53 Zofran SLOW IVP 4 mg Q8H PRN Administration Nausea/Vomiting Pantoprazole Sodium 40 mg 02/14/19 09:00 03/01/19 09:00 Protonix PO Not Given DAILY TAHIRA Potassium Chloride 20 meq 02/16/19 09:00 03/01/19 20:50 Klor-Con 10 PO 20 meq BID TAHIRA Administration Prednisone 20 mg 02/16/19 08:00 03/01/19 08:00 Prednisone PO Not Given QAM-WM TAHIRA Sodium Chloride 10 ml 02/08/19 09:00 03/01/19 22:46 Flush - Normal Saline IVF Not Given Q12HR TAHIRA Sodium Chloride 10 ml 02/08/19 04:05 02/08/19 05:13 Flush - Normal Saline IVF 10 ml PRN PRN Administration Saline Flush Sterile Water 1 ml 02/11/19 04:38 02/15/19 05:00 Bacteriostatic Water FS 1 ml PRN PRN Administration RECONSTITUTION Tramadol HCl 50 mg 02/27/19 11:24 03/01/19 20:51 Ultram PO 50 mg Q4H PRN Administration Moderate Pain - Exam General Appearance: NAD Neck: supple, no JVD Heart: RRR, no gallops Respiratory: CTAB, no rales Gastrointestinal: soft, non-tender, normal bowel sounds Extremities: no edema Hosp A/P - Plan DVT proph w/SCDs Severe Sepsis due to Complicated UTI/left ureteral stone with left hydronephrosis - s/p stent placement. Proteus bacteremia - completed Atbx COPD/Chronic Resp failure on home O2 Chronic Atrial fib - on anticoag Nonischemic CM CKD 3 MADELINE Chronic Resp failure on home O2 HS PLAN: Ureteroscopy today Cont other meds including Digoxin/BB/Tikosyn Overnight monitoring post procedure per Cardiology
[2019-03-02] MEDS: Sodium Chloride 0.9% 1,000 ML IV SCH ×2 (01:10→06:33)
[2019-03-02 05:59] LABS: Anion Gap 9 mmol/L (10-20); BUN (Urea Nitrogen) 14 mg/dL (8.4-25.7); Calc. Creatinine Clearance 87 mL/min (70-130); Calcium 8.5 mg/dL (7.8-10.44); Carbon Dioxide 34 mmol/L (23-31); Chloride 102 mmol/L (98-107); Estimated GFR-MDRD Greater than 90; Glucose 77 mg/dL (83-110); Potassium 4.1 mmol/L (3.5-5.1); Sodium 141 mmol/L (136-145)
[2019-03-02 06:06] LABS: #Eosinphils 0.1 thou/uL (0.0-0.7); #Lymphocytes 1.2 thou/uL (1.20-3.40); #Monocytes 0.7 thou/uL (0.11-0.59); #Neutrophils 5.7 thou/uL (1.40-6.50); %Basophils 0.1 % (0.0-1.0); %Eosinophils 0.7 % (0.0-10.0); %Lymphocytes 15.5 % (21.0-51.0); %Neutrophils 74.6 % (42.0-75.0); Hypochromia SLIGHT = 6-15 cells (100X) (0-5/hpf); MDiff Complete? YES; Mean Corpuscular HGB CONC 29.1 g/dL (32.0-36.0); Mean Corpuscular Hemoglobin 28.5 pg (27.0-31.0); Mean Platelet Volume 8.3 fL (7.4-10.4); Platelet Count 167 thou/uL (130-400); RBC Distribution Width 17.5 % (11.5-14.5); White Blood Cell (WBC) Count 7.6 thou/uL (4.8-10.8)
[2019-03-02] MEDS: Dofetilide 0.125 MG CAP PO SCH (06:32)
--- NOTE | 2019-03-02 07:51 | PRG ---
DATE OF SERVICE: 03/02/2019 SUBJECTIVE: Jordy Rosa did well with his stone retrieval and ureteroscopy yesterday. He has no complaints. OBJECTIVE: VITAL SIGNS: Stable. Heart rate is 92, respiratory rate is 18, oximetry is 95% on nasal cannula and blood pressure 104/49. LUNGS: Clear. HEART: Regular rhythm. ABDOMEN: Soft. IMPRESSION: 1. Status post retrieval of ureteral obstructing stone after presentation with urinary tract sepsis. 2. Severe kyphoscoliosis secondary to polio as an infant. 3. Asthma, it is clinically quiescent. 4. Deconditioning. 5. Multifocal atrial tachycardia with a history of atrial fibrillation as well. In my opinion, he is stable to transfer back to his [place] [facility]. Job ID: [id number]
[2019-03-02] MEDS ORDERED: predniSONE 20 MG TAB PO SCH (08:00)
[2019-03-02] MEDS: Potassium Chloride 10 MEQ TAB PO SCH (08:32)
[2019-03-02] MEDS: Apixaban 2.5 MG TAB PO SCH (08:32)
[2019-03-02] MEDS: Furosemide 40 MG TAB PO SCH (08:33)
[2019-03-02] MEDS: Acetaminophen 325 MG TAB PO SCH ×2 (08:34→15:29)
[2019-03-02] MEDS: Digoxin 0.125 MG TAB PO SCH (08:34)
[2019-03-02] MEDS: Ferrous Sulfate 325 MG TAB PO SCH (08:34)
[2019-03-02] MEDS: cefTRIAXone\\ROCEPHIN 1 GM in Sodium Chloride 0.9% 100 ML IVPB SCH (11:28)
[2019-03-02 11:40] VITALS: TEMP 97.9
[2019-03-02 11:49] VITALS: BP 107/59
--- NOTE | 2019-03-02 22:49 | DIS ---
DATE OF ADMISSION: 02/08/2019 DATE OF DISCHARGE: 03/02/2019 DISCHARGE DISPOSITION: The patient is returning back to [facility]. CODE STATUS: [id number]. DISCHARGE MEDICATIONS: Toprol-XL 12.5 mg b.i.d. All other home medications were left unchanged. Carvedilol was discontinued. The patient was seen on the day of discharge. Denies any new complaints. No chest pain, shortness of breath, or palpitations. LABORATORY DATA: Significant labs, WBC on admission was 21.5 with 12% bandemia. At discharge, it is 7.6. ABGs showed pH of 7.39 with pCO2 of 50.7, PO2 of 57.4, and bicarbonate 29.7. Chemistries showed phosphorus 2.0, albumin 2.5, BUN, maximum of 1.24. Urinalysis showed greater than 50 wbc's with 1+ bacteria. Blood culture 2 of 2 positive for Proteus mirabilis. Repeat blood cultures were negative. Stool for occult blood was negative. CT scan of the abdomen and pelvis on 07 February 2019, showed moderate left hydroureteronephrosis due to two adjacent distal left ureteral calculi, measuring approximately 5 to 6 mm and 4 mm. Abdominal ultrasound on 09 February 2019 showed cholelithiasis with distended gallbladder. INPATIENT PROCEDURES: On 08 February 2019, the patient underwent cystoscopy with left ureteral stent placement. On 01 March 2019, the patient underwent left ureteroscopy with laser lithotripsy, basket extraction of the stone, and placement of 6 x 26 double-J stent with string attached to the Bernabe catheter. Bernabe catheter needs to come out after 5 to 7 days. The stent will automatically come out with a Bernabe catheter. BRIEF HOSPITAL COURSE: The patient is a 78-year-old male currently residing at [facility], presented to the hospital on 08 February 2019, with abdominal pain mainly localized in the left flank. A workup was consistent with severe sepsis secondary to infected ureteral stone. His blood culture was positive for Proteus mirabilis. He underwent stent placement by Dr. Tyler Desai. He was monitored closely postoperatively in the Intensive Care Unit. He was started on broad-spectrum antibiotics, which were narrowed based on the culture. Please note that he has completed the antibiotics. Due to multiple comorbidities along with significant kyphoscoliosis, the patient was monitored in the hospital per Dr. Desai and Dr. Medrano's recommendation. Yesterday, the patient underwent lithotripsy/ureteroscopy along with stone extraction. Double-J stent with string attached has been placed. The string is attached to the Bernabe catheter. It will come out automatically when the Bernabe catheter is removed next week. Please note that his Bernabe catheter needs to come out in 5 to 7 days at the facility. Primary care physician advised to follow. The patient was evaluated by electrophysiology due to atrial fibrillation with rapid ventricular response postprocedure. His medications have been optimized per Electrophysiology, Dr. Arora. Tikosyn has been resumed. Carvedilol has been changed to metoprolol. He was also seen by Critical Care. He has been cleared by consultants for discharge. FINAL DIAGNOSES: 1. Severe sepsis due to complicated urinary tract infection. 2. Left ureteral calculi with left-sided hydronephrosis, status post stent placement. 3. Proteus bacteremia. 4. Chronic obstructive pulmonary disease. 5. Chronic respiratory failure, on home oxygen. 6. Chronic atrial fibrillation, on anticoagulation. 7. Nonischemic cardiomyopathy. 8. Chronic kidney disease, stage 3. 9. Obstructive sleep apnea. 10. Cholelithiasis. 11. Atrial fibrillation with rapid ventricular response during this hospital stay. 12. Status post automatic implantable cardioverter defibrillator placement. 13. History of Methicillin-resistant Staphylococcus aureus bacteremia, on chronic doxycycline therapy. TIME SPENT: Total time coordinating the discharge of this patient was 38 minutes. Job ID: [id number]
[2019-03-07 13:10] LABS: CA Oxalate Monohydrate 15 % (.); CA Phosphate 85 % (.); Color Brown (.); Stone Size 1x1x1 mm (.)
== END 2019-03-02 15:41 | DRG 853 ==
LOC: ERS 22:32 → IMCU/EMU 02-08 01:37 → SDC/OP 02-08 01:38 → IMCU/EMU 02-08 02:48 → CCU 02-09 10:19 → IMCU/EMU 02-10 10:15 → 2NO 02-19 12:49 → ONC 02-26 21:55 → IMCU/EMU 03-01 01:45 → ONC 03-01 01:47 → IMCU/EMU 03-01 01:48 → ONC 03-01 02:17 → 2NO 03-01 20:17
PROVIDERS: ADMIT Urology; ATTEND Urology
PROC: 0T778DZ Dilation of Left Ureter with Intraluminal Device, Via Natural or Artificial Opening Endoscopic (ICD-10-PCS; principal; 2019-02-08)
PROC: 3E02340 Introduction of Influenza Vaccine into Muscle, Percutaneous Approach (ICD-10-PCS; 2019-02-08)
PROC: 5A09357 Assistance with Respiratory Ventilation, Less than 24 Consecutive Hours, Continuous Positive Airway Pressure (ICD-10-PCS; 2019-02-09)
PROC: 0TC78ZZ Extirpation of Matter from Left Ureter, Via Natural or Artificial Opening Endoscopic (ICD-10-PCS; 2019-03-01)
PROC: 0T778DZ Dilation of Left Ureter with Intraluminal Device, Via Natural or Artificial Opening Endoscopic (ICD-10-PCS; 2019-03-01)
PROC: 0T9B80Z Drainage of Bladder with Drainage Device, Via Natural or Artificial Opening Endoscopic (ICD-10-PCS; 2019-03-01)
DX: A41.89 Other specified sepsis (principal); G93.41 Metabolic encephalopathy; J96.21 Acute and chronic respiratory failure with hypoxia; Z23 Encounter for immunization; Z51.5 Encounter for palliative care; Z66 Do not resuscitate; J96.22 Acute and chronic respiratory failure with hypercapnia; I50.23 Acute on chronic systolic (congestive) heart failure; N13.6 Pyonephrosis; I47.1 Supraventricular tachycardia; I42.8 Other cardiomyopathies; J98.11 Atelectasis; J44.1 Chronic obstructive pulmonary disease with (acute) exacerbation; I13.0 Hypertensive heart and chronic kidney disease with heart failure and stage 1 through stage 4 chronic kidney disease, or unspecified chronic kidney disease; R65.20 Severe sepsis without septic shock; M19.90 Unspecified osteoarthritis, unspecified site; E78.5 Hyperlipidemia, unspecified; K21.9 Gastro-esophageal reflux disease without esophagitis; I48.0 Paroxysmal atrial fibrillation; M41.9 Scoliosis, unspecified; K80.20 Calculus of gallbladder without cholecystitis without obstruction; E88.09 Other disorders of plasma-protein metabolism, not elsewhere classified; B96.4 Proteus (mirabilis) (morganii) as the cause of diseases classified elsewhere; I95.9 Hypotension, unspecified; E87.6 Hypokalemia; D63.8 Anemia in other chronic diseases classified elsewhere; N18.3 Chronic kidney disease, stage 3 (moderate); G47.33 Obstructive sleep apnea (adult) (pediatric); Z88.5 Allergy status to narcotic agent; Z79.01 Long term (current) use of anticoagulants; Z79.891 Long term (current) use of opiate analgesic; Z79.82 Long term (current) use of aspirin; Z79.51 Long term (current) use of inhaled steroids; Z79.52 Long term (current) use of systemic steroids; Z79.899 Other long term (current) drug therapy; Z86.73 Personal history of transient ischemic attack (TIA), and cerebral infarction without residual deficits; Z91.81 History of falling; Z95.810 Presence of automatic (implantable) cardiac defibrillator; Z87.891 Personal history of nicotine dependence; Z99.81 Dependence on supplemental oxygen
CPT/HCPCS: 36415; 71045; 74177; 74420; 76000; 76705; 80048; 80053; 80076; 80162; 81003; 81015; 82040; 82274; 82365; 82805; 83605; 83690; 83735; 83880; 84100; 84550; 85025; 85027; 87040; 87077; 87149; 87186; 88300; 93005; 93010; 94640; 94660; 96361; 96365; 96375; C1758; C1769; J0131; J0692; J0696; J1160; J1630; J2001; J2270; J2370; J2405; J2704; J2920; J2930; J3010; J3370; J3490; J7050; J7512; J7620; J8499; P9047; Q9967

== ENCOUNTER 2020-02-29 11:28 | Inpatient (IN) | payer MEDICARE, OTHER ==
[2020-02-29 11:48] LABS: #Eosinphils 0.1 thou/uL (0.0-0.7); #Lymphocytes 1.2 thou/uL (1.20-3.40); #Monocytes 0.8 thou/uL (0.11-0.59); %Basophils 0.4 % (0.0-1.0); %Eosinophils 0.7 % (0.0-10.0); %Lymphocytes 14.9 % (21.0-51.0); %Monocytes 9.7 % (0.0-10.0); %Neutrophils 74.2 % (42.0-75.0); Hemoglobin 14.5 g/dL (14.0-18.0); Mean Corpuscular HGB CONC 33.1 g/dL (32.0-36.0); Mean Corpuscular Hemoglobin 33.3 pg (27.0-31.0); Mean Platelet Volume 8.3 fL (7.4-10.4); Platelet Count 171 thou/uL (130-400); RBC Distribution Width 12.6 % (11.5-14.5); Red Blood Cell (RBC) Count 4.36 mill/uL (4.70-6.10); White Blood Cell (WBC) Count 8.1 thou/uL (4.8-10.8)
[2020-02-29] MEDS ORDERED: Metoprolol Tartrate 5 MG/5 ML VIAL ONE (11:53)
--- NOTE | 2020-02-29 11:55 | RAD ---
Chest AP view INDICATION: 79-year-old male with chest pain COMPARISON: Prior exam dated February 18, 2016 FINDINGS: Lungs: There is worsening airspace disease of the left lower lobe. There is patchy airspace disease of the right lower lobe. Cardiac silhouette: There is stable moderate to prominent cardiomegaly. There is a stable dual-lead AICD. Pulmonary vasculature: Normal Pleural spaces: No pleural effusion or pneumothorax is demonstrated. Upper abdomen: No abnormality seen. Osseous structures: There is severe thoracolumbar scoliosis with diffuse osteopenia. Additional findings: None. IMPRESSION: 1. Worsening bilateral lower lobe airspace disease may reflect aspiration or pneumonia. 2. Stable moderate to prominent cardiomegaly without definite evidence of cardiac decompensation. 3. Severe thoracolumbar scoliosis with diffuse osteopenia.
[2020-02-29 12:24] LABS: ALT (SGPT) 30 U/L (8-55); AST (SGOT) 34 U/L (5-34); Albumin 3.6 g/dL (3.4-4.8); Alkaline Phosphatase 63 U/L (40-110); Anion Gap 10 mmol/L (10-20); BUN (Urea Nitrogen) 23 mg/dL (8.4-25.7); Bilirubin, Total 0.5 mg/dL (0.2-1.2); Calc. Creatinine Clearance 0 mL/min (70-130); Calcium 9.1 mg/dL (7.8-10.44); Carbon Dioxide 34 mmol/L (23-31); Chloride 101 mmol/L (98-107); Estimated GFR-MDRD Greater than 90; Globulin 1.8 g/dL (2.4-3.5); Glucose 111 mg/dL (83-110); Lipase 22 U/L (8-78); Potassium 4.3 mmol/L (3.5-5.1); Protein, Total 5.4 g/dL (5.8-8.1); Sodium 141 mmol/L (136-145)
[2020-02-29 12:40] LABS: CKMB 7.8 ng/mL (0-6.6)
[2020-02-29] MEDS ORDERED: Nitroglycerin 2% Ointment 1 INCH/1 GM Packet ONE (12:52)
[2020-02-29 16:08] LABS: Troponin I 0.064 ng/mL (< 0.028)
[2020-02-29] MEDS ORDERED: Nitroglycerin 2% Ointment 1 INCH/1 GM Packet TOP PRN (17:37)
[2020-02-29] MEDS ORDERED: Acetaminophen 325 MG TAB PO PRN (17:45)
[2020-02-29] MEDS ORDERED: Ondansetron ODT 4 MG TAB SL PRN (17:45)
[2020-02-29] MEDS ORDERED: Ondansetron PF 4 MG/2 ML Vial IVP PRN ×2 (17:45→18:00)
[2020-02-29 17:54] VITALS: BMI 25.7
[2020-02-29] MEDS ORDERED: Ondansetron ODT 4 MG TAB PO PRN (18:00)
[2020-02-29] MEDS ORDERED: Acetaminophen 650 MG Suppository PR PRN (18:00)
[2020-02-29 19:33] LABS: Troponin I 0.071 ng/mL (< 0.028)
[2020-02-29] MEDS: Apixaban 2.5 MG TAB PO SCH (20:06)
--- NOTE | 2020-02-29 20:12 | HP ---
PRIMARY CARE PHYSICIAN: [facility]. CHIEF COMPLAINT: Chest pain and shortness of breath. HISTORY OF PRESENT ILLNESS: This is a 79-year-old white male with a known history of severe scoliosis with COPD and chronic hypoxic respiratory failure, on oxygen, also with congestive heart failure, followed by Dr. Medrano and by Dr. Harry. He was at [facility], where he resides. He reports that over the last couple of weeks, he has been having much worsening shortness of breath with exertion and states that it got severely worse before he came in here. He denied chest pain to me. However, on reviewing the ER notes and the EMS notes, the patient had developed chest pain, dull in nature, radiating to his left shoulder, pressure-like sensation that usually would go away after he would rest, but it persisted this time and EMS brought him and on 12-lead EKG, there was concern about possibility of ST-elevation and so, Dr. Harry met the patient in the emergency room. He reviewed the EKG along with EKG done here in the ER, which showed some atrial fibrillation, some ST depression that is actually better than a previous EKG that Dr. Harry had last looked at, but no significant ST elevations, so taking him to the r and d lab technician urgently was canceled. The patient's chest discomfort and symptoms had resolved with treatment en route with aspirin and nitroglycerin paste and sprays. The patient did have an indeterminate troponin and elevated CK-MB and so he is being admitted to the hospital with a non-ST elevation [facility]. REVIEW OF SYSTEMS: CONSTITUTIONAL: No fevers. No chills. EYES: The patient has chronic poor vision from cataracts, he has not been able to get surgically removed yet. ENT: Has had some runny nose. No sore throat. CARDIOVASCULAR: See HPI. Denies current chest pain or palpitation. PULMONARY: See HPI. GASTROINTESTINAL: No abdominal pain. He does get some nausea sometimes with his severe shortness of breath, but no vomiting. No diarrhea. He does have chronic constipation from his medications. GENITOURINARY: No dysuria or hematuria. MUSCULOSKELETAL: He has no new musculoskeletal complaints. He does have severe scoliosis of the spine that is chronic since he was little. SKIN: No rashes or other lesions that he has noted. NEUROLOGIC: No new numbness, tingling, or focal weakness. PAST MEDICAL HISTORY: 1. Chronic systolic congestive heart failure. Most recent echocardiogram showed an ejection fraction of 30% to 35% in May of 2019. 2. Previous nonsustained ventricular tachycardia and supraventricular tachycardia with implanted dual-chamber defibrillator. 3. Likely pulmonary artery hypertension. 4. Previous strokes. 5. Hypertension. 6. Severe scoliosis. 7. COPD and chronic hypoxia due to severe scoliosis. 8. Obstructive sleep apnea, so has to be on CPAP, though his machine has been broken for a year. 9. Atrial fibrillation. 10. Previous nephrolithiasis, requiring stent placement for removal. 11. Possible history of mild form of osteogenesis imperfecta per the patient report, though he could not remember the exact name. PAST SURGICAL HISTORY: 1. AICD, dual chamber placement. 2. Hernia repair. 3. Right forearm surgery. 4. TURP. 5. Cardiac catheterization in 2008 showing no significant coronary artery disease. SOCIAL HISTORY: The patient is a former smoker, quit more than 10 years ago. No alcohol or illicit drug use. He is a , resides at the [facility] in [place]. He is a full code. Should he be incapacitated, his daughter is his medical power of technical associate, her name is Antionette Cardona and he also would like his son, Bruce Rosa to be involved in the decision-making. FAMILY HISTORY: Positive for heart disease, asthma, and some type of osteogenesis imperfecta. Also, some family members with diabetes. ALLERGIES: IBUPROFEN, HE ASSOCIATES WITH TRIGGERING HIS STROKE, SO HE HAS NOT TAKEN IT SINCE. CURRENT MEDICATIONS: 1. Albuterol nebulizer four times a day. 2. Aspirin 81 mg daily. 3. Atorvastatin 20 mg daily. 4. Carvedilol 3.125 mg twice a day. 5. Digoxin 125 mcg daily. 6. Eliquis 2.5 mg twice a day. 7. Flonase 50 mcg in both nares twice a day. 8. Furosemide 40 mg daily. 9. Gabapentin 100 mg 3 times a day as needed. 10. Ferrous sulfate 325 mg daily. 11. Lisinopril 2.5 mg daily. 12. Loratadine 10 mg daily. 13. MiraLAX 17 g daily. 14. Omeprazole 20 mg daily. 15. Potassium chloride 20 mEq daily. 16. Prednisone 10 mg twice a day. 17. Tramadol 50 mg as needed. 18. Vitamin D3 at 5000 units a day. 19. Breo Ellipta 100/25 mcg one inhalation once a day. 20. Calcium carbonate/vitamin D3 two tablets once a day. 21. Doxycycline 100 mg once a day. 22. Lamisil applied twice a day. 23. Ultracet two tabs three times a day. PHYSICAL EXAMINATION: VITAL SIGNS: Blood pressure 115/59, pulse 85, respirations 22, O2 saturation 100% on 2 L, and temperature 99.4. GENERAL: This is a well-developed, well-nourished white male with severe scoliosis and deformity of his chest wall, who is in no acute distress. HEENT: Pupils are equal, round, and reactive to light. He does have some senile arcus as well as some bluish color to his sclerae and he has bilateral cataracts. Oropharynx, clear without lesions, erythema, or exudate. NECK: Supple. No lymphadenopathy. No thyroid nodules or enlargement. HEART: Regular rate and rhythm. No murmurs, rubs, or gallops. LUNGS: Decent air movement throughout without any wheezes, crackles, or rhonchi. ABDOMEN: Soft, nontender to palpation. Normoactive bowel sounds. No hepatosplenomegaly or other masses. EXTREMITIES: No clubbing or cyanosis. He does have a very mild amount of swelling around his right wrist without any erythema or warmth. No tenderness to palpation. SKIN: No rashes or lesions noted. NEUROLOGIC: The patient is able to move all extremities equally. No facial droop. PSYCHIATRIC: Alert and oriented x3. Normal mood and affect. LABORATORY DATA: CBC is grossly within normal limits. Complete metabolic panel is notable for carbon dioxide of 34, glucose of 111, and a total serum protein of 5.4. The rest is normal. CK-MB was elevated at 7.8. Initial troponin was 0.073, second was 0.064. These are actually consistent with all of his previous troponins. Chest x-ray, I did review the chest x-ray done in the emergency room along with the radiologist's report that shows some worsening airspace disease of the left lower lobe, possibly reflecting aspiration or pneumonia. Stable cardiomegaly and severe thoracolumbar scoliosis with diffuse osteopenia. EKG, see HPI above. ASSESSMENT: 1. Chest pain, now resolved, possibly related to his worsened pulmonary status versus cardiac in origin. The patient does have an indeterminate troponin. However, he has no known coronary artery disease, this is more likely strain from his congestive heart failure and his poor pulmonary status. We will continue to monitor him closely in the hospital and we will resume his home medications. We will give nitroglycerin to the chest wall as needed for pain and we will follow along with Dr. Harry's recommendations. 2. Acute on chronic respiratory failure with hypoxia due to scoliosis and chronic obstructive pulmonary disease. We will consult Dr. Medrano, the patient's supervisor ride assembly. There was some question about possible infiltrate on his chest x-ray. We will defer to Dr. Medrano for any choice if he needs antibiotics or other treatments as he has no elevated white count or fever or other evidence of infection at this time. 3. Chronic systolic congestive heart failure. We will continue home medications. 4. History of atrial and ventricular tachyarrhythmias. We will continue the patient's medications. He has a defibrillator in place. 5. Hypertension. We will resume home medications. 6. Gastrointestinal prophylaxis, put the patient on his home PPI. 7. Deep venous thrombosis prophylaxis. We will continue the patient's Eliquis. CODE STATUS: The patient is a full code. Should he be incapacitated, his medical power of technical associate is Antionette Cardona, his daughter. Job ID: [id number]
[2020-02-29] MEDS: Albuterol Sulfate 2.5 mg/3 ml Neb NEB SCH ×2 (20:20→23:25)
[2020-02-29] MEDS ORDERED: Famotidine 20 MG TAB PO SCH (21:00)
[2020-02-29] MEDS ORDERED: Carvedilol 3.125 MG TAB PO SCH (21:00)
[2020-03-01] MEDS: Albuterol Sulfate 2.5 mg/3 ml Neb NEB SCH ×4 (02:55→18:43)
[2020-03-01 03:42] LABS: #Basophils 0.1 thou/uL (0.0-0.2); #Eosinphils 0.1 thou/uL (0.0-0.7); #Lymphocytes 1.6 thou/uL (1.20-3.40); #Monocytes 0.9 thou/uL (0.11-0.59); #Neutrophils 4.9 thou/uL (1.40-6.50); %Basophils 0.9 % (0.0-1.0); %Eosinophils 1.3 % (0.0-10.0); %Monocytes 11.7 % (0.0-10.0); %Neutrophils 65.1 % (42.0-75.0); Hemoglobin 13.7 g/dL (14.0-18.0); Mean Corpuscular HGB CONC 33.7 g/dL (32.0-36.0); Mean Corpuscular Hemoglobin 33.8 pg (27.0-31.0); Mean Platelet Volume 8.5 fL (7.4-10.4); Platelet Count 153 thou/uL (130-400); RBC Distribution Width 12.6 % (11.5-14.5); Red Blood Cell (RBC) Count 4.06 mill/uL (4.70-6.10); White Blood Cell (WBC) Count 7.5 thou/uL (4.8-10.8)
[2020-03-01 04:00] LABS: Anion Gap 12 mmol/L (10-20); BUN (Urea Nitrogen) 21 mg/dL (8.4-25.7); Calc. Creatinine Clearance 88 mL/min (70-130); Calcium 8.8 mg/dL (7.8-10.44); Carbon Dioxide 31 mmol/L (23-31); Chloride 103 mmol/L (98-107); Estimated GFR-MDRD Greater than 90; Glucose 84 mg/dL (83-110); Sodium 142 mmol/L (136-145)
[2020-03-01] MEDS ORDERED: Furosemide 40 MG TAB PO SCH (07:30)
[2020-03-01] MEDS ORDERED: Carvedilol 3.125 MG TAB PO SCH (08:00)
[2020-03-01] MEDS: predniSONE 20 MG TAB PO SCH ×2 (08:23→17:43)
[2020-03-01] MEDS: Lisinopril 2.5 MG TAB PO SCH (08:23)
[2020-03-01] MEDS: Potassium Chloride 20 MEQ TAB PO SCH (08:24)
[2020-03-01] MEDS: Apixaban 2.5 MG TAB PO SCH ×3 (08:24→20:43)
[2020-03-01] MEDS: Loratadine 10 MG TAB PO SCH (08:24)
[2020-03-01] MEDS ORDERED: Digoxin 0.125 MG TAB PO SCH (09:15)
[2020-03-01] MEDS ORDERED: Dofetilide 0.25 MG CAP PO SCH ×2 (09:15→21:00)
--- NOTE | 2020-03-01 10:17 | CON ---
DATE OF CONSULTATION: HISTORY OF PRESENT ILLNESS: Mr. Rosa is a 79-year-old white male with history of asthma, COPD, severe kyphoscoliosis, and nonischemic cardiomyopathy with atrial arrhythmias. He did undergo cardiac catheterization at [facility] in February 2005 and he had no significant coronary artery disease. He has had problems with atrial arrhythmias in the past and a monitor in January 2016 revealed intermittent atrial fibrillation, short episodes of nonsustained ventricular tachycardia, PVCs, atrial flutter with variable block. He presented to the emergency room in January 2016 with atrial flutter with rates from 150 to 160 per minute. He was given intravenous Cardizem followed by intravenous amiodarone and did not convert. His heart rates only reduced down to the 130s per minute. He then underwent ablation of his atrial flutter and was discharged on Eliquis. Approximately two weeks later, he was back in atrial flutter and underwent repeat atrial flutter ablation. His breathing seemed to improve. In July 2016, he was admitted with left elbow MRSA septic arthritis and COPD exacerbation as well as acute on chronic systolic heart failure. He has been maintained on 24-hour oxygen for many years. In January 2018, he was admitted with increased shortness of breath and occasional episodes of hemoptysis. He denied any chest discomfort. He would have frequent PVCs and PACs. Echocardiogram at that time revealed his ejection fraction fallen to 30% to 35%. He continued to have episodes of multifocal atrial tachycardia, PAT versus atypical flutter and was placed on Tikosyn as well as digoxin. Ultimately, he underwent placement of a dual-chamber ICD for his left ventricular dysfunction. He was last seen in the office in April 2019, and complained of some chest pressure that would occur at rest. He underwent re-evaluation with echocardiogram which again revealed ejection fraction of 30% to 35%, defibrillator wire in the right ventricle, moderate left atrial enlargement, aortic valvular sclerosis, moderate aortic insufficiency, moderate mitral regurgitation, moderate tricuspid regurgitation, and moderate pulmonic insufficiency. He also underwent cardiac PET scan in May 2019, which revealed no evidence of ischemia or fixed defect and he did have moderate to severe left ventricular dysfunction with ejection fraction of 29%. He now is brought to the emergency room complaining of chest discomfort and was declared a STEMI; however, he does not have any acute changes on his EKG. Cardiac enzymes been slightly elevated, which is his baseline. 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 MEDICATIONS: 1. Eliquis 2.5 mg b.i.d. 2. Aspirin 81 daily. 3. Atorvastatin 20 daily. 4. Vitamin D3. 5. Digoxin 0.25 q.a.m. 6. Tikosyn 0.25 b.i.d. 7. Doxycycline 100 mg b.i.d. 8. Ferrous sulfate 325 daily. 9. Flonase nasal spray. 10. Breo one puff daily. 11. Furosemide 40 mg q.a.m. 12. DuoNebs q.6 hours. 13. Lisinopril 2.5 mg daily. 14. Claritin 10 daily. 15. Metoprolol-XL 12.5 b.i.d. 16. Multivitamin daily. 17. Pataday one drop each eye b.i.d. 18. Omeprazole 20 daily. 19. MiraLAX. 20. KCl 20 mEq daily. 21. Prednisone 10 mg q.a.m. 22. Zinc 220 daily. 23. Tramadol. ALLERGIES: IBUPROFEN. OPERATIONS: Hernia repair, left elbow drainage from the MRSA, right forearm surgery, radiofrequency ablation of atrial flutter x2, dual-chamber ICD placement. SOCIAL HISTORY: Smoked in the past, but does not currently. He quit about 50 years ago. He denied any alcohol use. FAMILY HISTORY: Negative for coronary artery disease. REVIEW OF SYSTEMS: A 10-point review of systems was unremarkable. PHYSICAL EXAMINATION: VITAL SIGNS: 104/57, pulse of 103, sinus rhythm on the monitor. HEENT: PERRL. NECK: Supple. CHEST: Reveals occasional rhonchi. CARDIOVASCULAR: S1 and S2 normal without any S3 or S4. There is a 1/6 holosystolic murmur. ABDOMEN: Normal bowel sounds without tenderness. EXTREMITIES: Reveal 1+ pretibial edema. NEUROLOGIC: Grossly intact. SKIN: Warm and dry. SKELETAL: Reveals severe kyphoscoliosis. LABORATORY DATA: EKG revealed sinus rhythm, phase 3 right bundle-branch block, lateral ST and T-wave changes, similar previous EKGs. Hemoglobin 13.7, hematocrit 40.7, white count 7500, platelets 153,000. Sodium 142, potassium 4.0, chloride 103, carbon dioxide 31, BUN 21, creatinine 0.72. Troponin I 0.073 (chronically elevated troponin I). BNP 400.2 in January. CK-MB 7.8, no CK has been performed. On February 24, COVID was negative. Chest x-ray revealed worsening bilateral lower lobe disease, possible aspiration pneumonia. IMPRESSION: 1. Prolonged chest discomfort, which I do not feel was cardiac in nature and is probably more related to his COPD and breathing problems. He has chronically elevated troponin I and had a normal cardiac PET scan in May 2019. 2. Nonischemic cardiomyopathy with ejection fraction of 30% to 35% on last echo in May 2019. 3. Status post dual-chamber ICD placement. 4. Significant atrial arrhythmias, status post atrial flutter ablation x2 in February 2016. He also has MAT, PAT, and is on Tikosyn, digoxin, and metoprolol. 5. Nonsustained ventricular tachycardia and PVCs. 6. Hypertension. 7. Hyperlipidemia. 8. Obstructive sleep apnea. 9. Post-polio. 10. 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 RECOMMENDATIONS: Mr. Rosa will be restarted on his metoprolol, Tikosyn, and digoxin to help control his atrial arrhythmias. In the emergency room, it was requested that a [facility] will be performed, which was not. This will be performed to see what his burden of atrial arrhythmias are. In the past when he has prolonged atrial tachycardia, he does have some chest discomfort associated with that. I will increase his furosemide to 40 mg b.i.d. and watch his renal function closely. 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 Job ID: [id number] [facility]
[2020-03-01] MEDS ORDERED: Dofetilide 0.125 MG CAP PO SCH (10:30)
[2020-03-01] MEDS ORDERED: methylPREDNISolone Sod Succ 40 MG VIAL IVP SCH (14:15)
[2020-03-01] MEDS: Furosemide 40 MG TAB PO SCH (14:37)
--- NOTE | 2020-03-01 17:24 | PDOC.HOSPP ---
- Subjective Encounter Date: 03/01/20 Encounter Time: 14:00 Subjective: F/u: COVID The patient states he is still very short of breath. He has been sneezing frequently. He also reports a dry cough . He denies sore throat or runny nose. He denies chest pain - Objective Vital Signs & Weight: Vital Signs (12 hours) Temp Pulse Resp BP Pulse Ox 03/01/20 15:25 99.2 F 03/01/20 14:47 92 24 H 98 03/01/20 11:37 98.4 F 03/01/20 10:07 121/63 03/01/20 08:31 142 H 23 H 100 03/01/20 07:03 98.2 F Weight Weight 159 lb 13.362 oz Most Recent Monitor Data Heart Rate from ECG 82 NIBP 100/69 NIBP BP-Mean 79 Respiration from ECG 21 SpO2 100 I&O: 02/29/20 03/01/20 03/02/20 06:59 06:59 06:59 Intake Total 560 Output Total 850 225 Balance -290 -225 Result Diagrams: 03/01/20 03:13 03/01/20 03:13 Hospitalist ROS - Review of Systems Constitutional: denies: fever, chills - Medication Medications: Active Medications Generic Name Dose Route Start Last Admin Trade Name Luis Alfredoq PRN Reason Stop Dose Admin Albuterol Sulfate 2.5 mg 02/29/20 19:00 03/01/20 14:47 Albuterol Sulfate 2.5 Mg/3 Ml Neb NEB 2.5 mg [id number] TAHIRA Administration Apixaban 2.5 mg 02/29/20 21:00 03/01/20 08:24 Apixaban 2.5 Mg Tab PO 2.5 mg BID TAHIRA Administration Furosemide 40 mg 03/01/20 14:00 03/01/20 14:37 Furosemide 40 Mg Tab PO 40 mg 0900,1400 TAHIRA Administration Levofloxacin 750 mg/ Device 150 mls @ 100 mls/hr 03/01/20 15:00 03/01/20 14:38 IVPB 150 mls Q24HR TAHIRA Administration Lisinopril 2.5 mg 03/01/20 09:00 03/01/20 08:23 Lisinopril 2.5 Mg Tab PO 2.5 mg DAILY TAHIRA Administration Loratadine 10 mg 03/01/20 09:00 03/01/20 08:24 Loratadine 10 Mg Tab PO 10 mg DAILY TAHIRA Administration Pantoprazole Sodium 40 mg 03/01/20 09:00 03/01/20 08:24 Pantoprazole 40 Mg Tab PO 40 mg DAILY TAHIRA Administration Potassium Chloride 20 meq 03/01/20 08:00 03/01/20 08:24 Potassium Chloride 20 Meq Tab PO 20 meq QAM-WM TAHIRA Administration Prednisone 10 mg 03/01/20 08:00 03/01/20 08:23 Prednisone 20 Mg Tab PO 10 mg BID-WM TAHIRA Administration - Exam General Appearance: NAD, awake alert Eye: PERRL ENT: normocephalic atraumatic, no oropharyngeal lesions Neck: no JVD Heart: RRR, no murmur, no gallops, no rubs Respiratory: no wheezes, no rales, no ronchi Respiratory - other findings: diminshed breath sounds bilaterally Gastrointestinal: soft, non-tender, non-distended, normal bowel sounds Extremities: no cyanosis, no clubbing, no edema Skin: normal turgor, no lesions Skin - other findings: dry skin Hosp A/P - Plan ChesT x ray: worsening bilateral lower lobe airspace disease may reflect aspiration or pneumonia. Stable moderate to prominent cardiomegaly. Severe thoracolumbar scoliosis This is a 79 year old male with past medical history of COPD and chronic respiratory failure who presented with shortness of breath. Originally there was concern for STEMI, but was admitted for possible NSTEMi Acute hypoxic respiratory failure - possibly secondary to pneumonia - chest X ray shows worsening bilateral lower lobe airspace disease - started on IV levaquin today. Will give one dose of IV solumedrol today 40 mg - continue standing duonebs Elevated troponin - patient denies chest pain. Troponin peaked at 0.073 - cardiology has been consulted, does not feel patient needs to go to the ship laborer History of atrial flutter s/p ablation - continue dofetilide, lasix, coreg, digoxin Macrocytic anemia - HB 13.7, will check B12/folate/TSH tomorrow
[2020-03-01] MEDS: Dofetilide 0.125 MG CAP PO SCH (20:43)
[2020-03-01] MEDS: Acetaminophen 325 MG TAB PO PRN (21:46)
[2020-03-01] MEDS: Guaifenesin DM 100-10/5 ML UDCUP PO PRN (21:47)
[2020-03-01] MEDS ORDERED: Albuterol Sulfate 2.5 mg/3 ml Neb NEB PRN (23:22)
[2020-03-02] MEDS: Albuterol Sulfate 2.5 mg/3 ml Neb NEB SCH ×4 (00:17→18:57)
[2020-03-02] MEDS ORDERED: Albuterol Sulfate 2.5 mg/3 ml Neb NEB PRN (03:34)
[2020-03-02 03:57] LABS: Platelet Count 174 thou/uL (130-400)
[2020-03-02 04:08] LABS: Anion Gap 13 mmol/L (10-20); BUN (Urea Nitrogen) 22 mg/dL (8.4-25.7); Calc. Creatinine Clearance 79 mL/min (70-130); Calcium 8.8 mg/dL (7.8-10.44); Carbon Dioxide 29 mmol/L (23-31); Chloride 101 mmol/L (98-107); Estimated GFR-MDRD Greater than 90; Glucose 118 mg/dL (83-110); Potassium 4.1 mmol/L (3.5-5.1); Sodium 139 mmol/L (136-145)
[2020-03-02] MEDS: Nitroglycerin 2% Ointment 1 INCH/1 GM Packet TOP PRN (08:27)
[2020-03-02] MEDS: Dofetilide 0.125 MG CAP PO SCH ×2 (08:41→20:55)
[2020-03-02] MEDS: Loratadine 10 MG TAB PO SCH (08:42)
[2020-03-02] MEDS: Lisinopril 2.5 MG TAB PO SCH (08:42)
[2020-03-02] MEDS: Potassium Chloride 20 MEQ TAB PO SCH (08:42)
[2020-03-02] MEDS: Apixaban 2.5 MG TAB PO SCH ×2 (08:42→20:55)
[2020-03-02] MEDS: Digoxin 0.25 MG TAB PO SCH (08:42)
[2020-03-02] MEDS: predniSONE 20 MG TAB PO SCH ×2 (08:42→15:53)
[2020-03-02] MEDS: Furosemide 40 MG TAB PO SCH ×2 (08:43→14:10)
[2020-03-02] MEDS: Diltiazem 125 MG in Sodium Chloride 0.9% 100 ML IVPB SCH (09:19)
[2020-03-02] MEDS ORDERED: PROVENTIL INHALER 6.7 G (200 INHALATIONS) INH PRN (15:04)
[2020-03-02] MEDS: Lidocaine 5% Patch TD SCH (15:53)
[2020-03-02] MEDS: Guaifenesin DM 100-10/5 ML UDCUP PO PRN (15:53)
[2020-03-02] MEDS ORDERED: Albuterol 200 PUFF (6.7GM INHALER) INH PRN (16:04)
--- NOTE | 2020-03-02 16:56 | PDOC.HOSPP ---
- Subjective Encounter Date: 03/02/20 Encounter Time: 08:00 Subjective: F/u: pneumonia THe patient still reports sneezing and intermittent dry cough. This morning his heart rate went up to the 140's and plan was to start diltiazem drip. He did receive 10 mg IV diltiazem this morning and was loaded wit hdigoxin. While I was in the room, his heart rate went back to 80 but is inconsistent He denies chest pain - Objective Vital Signs & Weight: Vital Signs (12 hours) Temp Pulse Pulse Pulse Resp BP BP 03/02/20 15:29 99.2 F 03/02/20 13:32 84 22 H 03/02/20 11:41 99.5 F 03/02/20 09:47 90 87 125/64 107/54 L 03/02/20 08:02 03/02/20 08:01 92 20 03/02/20 07:42 98.8 F Pulse Ox Pulse Ox Pulse Ox 03/02/20 15:29 03/02/20 13:32 100 03/02/20 11:41 03/02/20 09:47 99 100 03/02/20 08:02 95 03/02/20 08:01 95 03/02/20 07:42 Weight Weight 159 lb 13.362 oz Most Recent Monitor Data Heart Rate from ECG 77 NIBP 97/49 NIBP BP-Mean 65 Respiration from ECG 24 SpO2 100 I&O: 03/01/20 03/02/20 03/03/20 06:59 06:59 06:59 Intake Total 560 2200 Output Total 850 2120 175 Balance -290 80 -175 Result Diagrams: 03/02/20 03:12 03/02/20 03:13 Hospitalist ROS - Review of Systems Constitutional: denies: fever, chills - Medication Medications: Active Medications Generic Name Dose Route Start Last Admin Trade Name Freq PRN Reason Stop Dose Admin Acetaminophen 650 mg 02/29/20 18:00 03/01/20 21:46 Acetaminophen 325 Mg Tab PO 650 mg Q4H PRN Administration Headache/Fever/Mild Pain (1-3) Albuterol Sulfate 2.5 mg 02/29/20 19:00 03/02/20 13:32 Albuterol Sulfate 2.5 Mg/3 Ml Neb NEB 2.5 mg [id number] TAHIRA Administration Apixaban 2.5 mg 02/29/20 21:00 03/02/20 08:42 Apixaban 2.5 Mg Tab PO 2.5 mg BID TAHIRA Administration Digoxin 0.25 mg 03/02/20 09:00 03/02/20 08:42 Digoxin 0.25 Mg Tab PO 0.25 mg DAILY TAHIRA Administration Dofetilide 0.25 mg 03/01/20 21:00 03/02/20 08:41 Dofetilide 0.125 Mg Cap PO 0.25 mg BID TAHIRA Administration Furosemide 40 mg 03/01/20 14:00 03/02/20 14:10 Furosemide 40 Mg Tab PO 40 mg 0900,1400 TAHIRA Administration Guaifenesin/Dextromethorphan 15 ml 02/29/20 18:00 03/02/20 15:53 Guaifenesin Dm 100-10/5 Ml Udcup PO 15 ml Q4H PRN Administration Cough Levofloxacin 750 mg/ Device 150 mls @ 100 mls/hr 03/01/20 15:00 03/02/20 14:10 IVPB 150 mls Q24HR TAHIRA Administration Diltiazem HCl 125 mg/ Sodium 125 mls @ 0 mls/hr 03/02/20 09:00 03/02/20 09:19 Chloride IVPB 125 mls INF TAHIRA Administration Protocol Titrate Lidocaine 1 patch 03/02/20 16:00 03/02/20 15:53 Lidocaine 5% Patch TD 1 patch 1600 TAHIRA Administration Lisinopril 2.5 mg 03/01/20 09:00 03/02/20 08:42 Lisinopril 2.5 Mg Tab PO 2.5 mg DAILY TAHIRA Administration Loratadine 10 mg 03/01/20 09:00 03/02/20 08:42 Loratadine 10 Mg Tab PO 10 mg DAILY TAHIRA Administration Metoprolol Succinate 12.5 mg 03/01/20 21:00 03/02/20 08:42 Metoprolol Succinate Xl 25 Mg Tab PO 12.5 mg BID TAHIRA Administration Nitroglycerin 1 inch 02/29/20 18:04 03/02/20 08:27 Nitroglycerin 2% Ointment 1 Inch/1 Gm Packet TOP 1 inch TIDPRN PRN Administration Chest Pain Pantoprazole Sodium 40 mg 03/01/20 09:00 03/02/20 08:42 Pantoprazole 40 Mg Tab PO 40 mg DAILY TAHIRA Administration Potassium Chloride 20 meq 03/01/20 08:00 03/02/20 08:42 Potassium Chloride 20 Meq Tab PO 20 meq QAM-WM TAHIRA Administration Prednisone 10 mg 03/01/20 08:00 03/02/20 15:53 Prednisone 20 Mg Tab PO 10 mg BID-WM TAHIRA Administration Sodium Chloride 10 ml 03/02/20 09:00 03/02/20 09:19 Flush - Normal Saline 10 Ml Syringe IVF 10 ml Q12HR TAHIRA Administration - Exam General Appearance: NAD, awake alert Eye: PERRL, anicteric sclera ENT: no oropharyngeal lesions Neck: no JVD Heart: RRR, no murmur, no gallops, no rubs Respiratory: CTAB, no wheezes, no rales, no ronchi, no tachypnea Gastrointestinal: soft, non-tender, non-distended, normal bowel sounds Extremities: no cyanosis, no clubbing, no edema Hosp A/P - Plan ChesT x ray: worsening bilateral lower lobe airspace disease may reflect aspiration or pneumonia. Stable moderate to prominent cardiomegaly. Severe thoracolumbar scoliosis This is a 79 year old male with past medical history of COPD and chronic respiratory failure who presented with shortness of breath. Originally there was concern for STEMI, but was admitted for possible NSTEMi Acute hypoxic respiratory failure - possibly secondary to pneumonia - chest X ray shows worsening bilateral lower lobe airspace disease. On IV levaquin day 2. - started on IV levaquin today. S/p solumedrol 40 mg 03/01. Will switch to oral prednisone 40 mg - continue standing duonebs - wean oxygen sat to 92%, currently 2L 100% History of atrial flutter s/p ablation - continue dofetilide, lasix, coreg, digoxin . Diltiazem drip prn if rate unco ntrolled Elevated troponin - patient denies chest pain. Troponin peaked at 0.073 - cardiology has been consulted, does not feel patient needs to go to the cath lab tech Macrocytic anemia - HB 13.7, will check B12/folate/TSH tomorrow
[2020-03-02] MEDS ORDERED: predniSONE 20 MG TAB PO SCH (17:15)
--- NOTE | 2020-03-02 17:21 | PRG ---
DATE OF SERVICE: 03/02/2020 SUBJECTIVE: Jordy Rosa is clinically unchanged. He has no new complaints. He transiently had rapid atrial fibrillation this morning associated with some chest discomfort. His heart rate was up to 150. Before we could push the Cardizem, his heart rate came down to about 105. A Cardizem drip was to be started. I discussed the above with Dr. Harry. OBJECTIVE: LUNGS: Free of wheezes. HEART: Regular rhythm. ABDOMEN: Soft. IMPRESSION: 1. Chronic persistent asthma, not active in my opinion at this time. 2. Intermittent rapid atrial fibrillation, which is probably the primary reason for his waxing and waning shortness of breath. 3. Severe kyphoscoliosis. 4. Deconditioning. 5. Systolic cardiomyopathy. PLAN: We will continue the current care. His medications have been adjusted by Dr. Harry. Job ID: [id number]
--- NOTE | 2020-03-02 18:53 | CON ---
DATE OF CONSULTATION: 03/01/2020 HISTORY OF PRESENT ILLNESS: Jrody Rosa is a 79-year-old male. I took care of his before she passed. I have taken care of him for many years. He has severe kyphoscoliosis. He has a component of asthma. Usually, he is not very active. He also has a history of congestive heart failure and multiple hospitalizations for that related to atrial fibrillation. He is admitted with shortness of breath for over a month. He has called my office several times and we called to get him to come to the office, but people at the desk where he lives tell us that if he comes to the office, he has to quarantine for 2 weeks afterwards. Really says this is similar to past episodes. He denies having any fever with this. He is very frustrated, because he is wanting to get cataracts removed. He tells me that Dr. Pop does not remove cataracts anymore and Dr. Sumner wanted too much money for the cataract surgery. He says he has gotten to where he cannot read, which has got to be terrible for the poor gentleman. He is now admitted with complaints of shortness of breath. Today, he looks to me like he is at his baseline. He does report that he cannot walk 10 feet without getting short of breath, whereas at the [facility], he can walk about 50 feet and back to his room with minimal shortness of breath. PAST MEDICAL HISTORY: 1. Cardiac is well documented in Dr. Harry's note. 2. He has a history of atrial flutter. 3. He has a history of cardiac catheterization in 2005 with no coronary artery disease. 4. History of septic arthritis with Staph in 2017. 5. History of multiple admissions with asthma and shortness of breath. He is so kyphotic and scoliotic that it does not really take much to make him short of breath. 6. History of decreased ejection fraction. 7. Placement of a dual-chamber ICD in 2018. 8. History of aortic sclerosis and moderate mitral regurgitation. 9. History of catheterization in May of this year that did not show significant coronary artery disease. 10. History of sleep apnea. He is compliant with CPAP. 11. Lipid disorder. MEDICATIONS: Have been reviewed, he is on 23. ALLERGIES: HE REPORTS ALLERGIES TO ADVIL. SOCIAL HISTORY: He is a distant smoker, but did not smoke for many years and certainly did not smoke enough to get COPD. He is not a drinker. REVIEW OF SYSTEMS: Otherwise negative. PHYSICAL EXAMINATION: VITAL SIGNS: Blood pressure 133/45, heart rate is 92, respiratory rates in the 20s. GENERAL: He appears comfortable. He is talking in complete sentences. HEAD AND NECK: Unremarkable. As mentioned, he is extremely kyphotic and scoliotic, this is congenital. LUNGS: Clear. HEART: Regular rhythm. ABDOMEN: Soft. EXTREMITIES: Without clubbing, cyanosis, or edema. LABORATORY DATA: White count 7.5, hemoglobin 13.7. Electrolytes are normal today. I reviewed his chest radiograph. In my opinion, this is similar to his baseline film. In my opinion, it has actually improved compared to his December film. IMPRESSION: 1. Asthma. 2. Deconditioning. 3. Severe kyphoscoliosis. 4. Systolic cardiomyopathy. 5. History of atrial fibrillation. 6. History of defibrillator. He had urine cultures done on 02/17, which is growing Proteus, there is small number though. The respiratory culture done on 02/18 that did not show any pathogens. He does have a history of Proteus UTI a year ago and Proteus bacteremia a year ago. It does not appear that there are any cultures pending here. He will probably be switched to p.o. antimicrobial therapy if his lungs remain stable tomorrow. I will follow with the other physicians caring for him. This was a 50 min consult with greater than 50% of the time spent on the unit with coordination of care. Job ID: [id number] [facility]
[2020-03-02] MEDS ORDERED: Electrolyte Replacement Protoc 1 EACH EACH FS PRN (23:23)
[2020-03-02 23:52] LABS: Anion Gap 16 mmol/L (10-20); BUN (Urea Nitrogen) 26 mg/dL (8.4-25.7); Calc. Creatinine Clearance 55 mL/min (70-130); Calcium 9.2 mg/dL (7.8-10.44); Carbon Dioxide 30 mmol/L (23-31); Chloride 99 mmol/L (98-107); Estimated GFR-MDRD 62; Glucose 117 mg/dL (83-110); Potassium 4.6 mmol/L (3.5-5.1); Sodium 140 mmol/L (136-145)
[2020-03-03] MEDS: Albuterol Sulfate 2.5 mg/3 ml Neb NEB SCH ×5 (00:09→23:54)
[2020-03-03 04:00] LABS: Digoxin 1.27 ng/mL (0.8-2.0)
[2020-03-03] MEDS: Diltiazem 125 MG in Sodium Chloride 0.9% 100 ML IVPB SCH (04:31)
[2020-03-03] MEDS: Lidocaine Patch Removal 1 EACH TOP SCH (04:33)
[2020-03-03] MEDS ORDERED: predniSONE 20 MG TAB PO SCH (08:00)
[2020-03-03] MEDS: Dofetilide 0.125 MG CAP PO SCH (08:58)
[2020-03-03] MEDS: Lisinopril 2.5 MG TAB PO SCH (08:59)
[2020-03-03] MEDS: predniSONE 20 MG TAB PO SCH (08:59)
[2020-03-03] MEDS: Potassium Chloride 20 MEQ TAB PO SCH (08:59)
[2020-03-03] MEDS: Digoxin 0.25 MG TAB PO SCH (08:59)
[2020-03-03] MEDS: Furosemide 40 MG TAB PO SCH ×2 (09:00→13:46)
[2020-03-03] MEDS: Loratadine 10 MG TAB PO SCH (09:00)
[2020-03-03] MEDS: Apixaban 2.5 MG TAB PO SCH ×2 (09:01→21:07)
[2020-03-03] MEDS: Nitroglycerin 2% Ointment 1 INCH/1 GM Packet TOP PRN (09:01)
[2020-03-03 11:15] LABS: Anion Gap 11 mmol/L (10-20); BUN (Urea Nitrogen) 28 mg/dL (8.4-25.7); Calc. Creatinine Clearance 68 mL/min (70-130); Calcium 8.7 mg/dL (7.8-10.44); Carbon Dioxide 30 mmol/L (23-31); Chloride 101 mmol/L (98-107); Estimated GFR-MDRD 79; Glucose 103 mg/dL (83-110); Potassium 4.4 mmol/L (3.5-5.1); Sodium 138 mmol/L (136-145)
[2020-03-03] MEDS: Senokot S 8.6-50 MG TAB PO PRN (13:45)
[2020-03-03] MEDS: Lidocaine 5% Patch TD SCH (13:46)
--- NOTE | 2020-03-03 16:20 | PRG ---
DATE OF SERVICE: 03/03/2020 SUBJECTIVE: Jordy Rosa is stable. He says he feels better today. OBJECTIVE: VITAL SIGNS: Heart rate is in 70s, respiratory rate in the teens, oximetry is 100%, blood pressure 122/60. GENERAL: He was lying flat in bed when I saw him this morning in no distress. LUNGS: Clear. HEART: Regular rhythm. ABDOMEN: Soft. LABORATORY DATA: Hemoglobin is 14. Electrolytes are unremarkable. IMPRESSION: 1. Rapid atrial fibrillation creating most of his symptoms. 2. Deconditioning. 3. Chronic persistent asthma. In my opinion it is not a factor now. I do not feel he has pneumonia. We will antibiotics. Job ID: [id number]
--- NOTE | 2020-03-03 19:31 | PDOC.HOSPP ---
- Subjective Encounter Date: 03/03/20 Encounter Time: 11:45 Subjective: F/u: SOB The patient reports shortness of breath ambulating to the bathroom. He denies chest pain. He was on 3L oxygen at home and was weaned down to 2L here. He reports history of asthma and follows with Dr. Medrano The patient had an episode where his ICD fired last night. Pacemaker was interrogated and showed > 300 episodes of atrial arrythmia on 03/01. Tele strip appeared like V tach . EP was consulted - Objective Vital Signs & Weight: Vital Signs (12 hours) Temp Pulse Resp BP Pulse Ox 03/03/20 19:04 78 32 H 100 03/03/20 16:00 97.5 F L 03/03/20 13:41 79 18 100 03/03/20 08:59 87 128/58 L 03/03/20 08:00 95 03/03/20 07:49 97.7 F 03/03/20 07:48 97 03/03/20 07:45 87 21 H 97 Weight Weight 159 lb 13.362 oz Most Recent Monitor Data Heart Rate from ECG 75 NIBP 106/52 NIBP BP-Mean 70 Respiration from ECG 25 SpO2 100 I&O: 03/02/20 03/03/20 03/04/20 06:59 06:59 06:59 Intake Total 2200 1203 685 Output Total 2120 1895 1025 Balance 80 692 -340 Result Diagrams: 03/02/20 03:12 03/03/20 09:52 Hospitalist ROS - Review of Systems Constitutional: denies: fever - Medication Medications: Active Medications Generic Name Dose Route Start Last Admin Trade Name Buzz PRN Reason Stop Dose Admin Acetaminophen 650 mg 02/29/20 18:00 03/01/20 21:46 Acetaminophen 325 Mg Tab PO 650 mg Q4H PRN Administration Headache/Fever/Mild Pain (1-3) Albuterol Sulfate 2.5 mg 02/29/20 19:00 03/03/20 19:04 Albuterol Sulfate 2.5 Mg/3 Ml Neb NEB 2.5 mg [id number] TAHIRA Administration Apixaban 2.5 mg 02/29/20 21:00 03/03/20 09:01 Apixaban 2.5 Mg Tab PO 2.5 mg BID TAHIRA Administration Digoxin 0.25 mg 03/02/20 09:00 03/03/20 08:59 Digoxin 0.25 Mg Tab PO 0.25 mg DAILY TAHIRA Administration Furosemide 40 mg 03/01/20 14:00 03/03/20 13:46 Furosemide 40 Mg Tab PO 40 mg 0900,1400 TAHIRA Administration Guaifenesin/Dextromethorphan 15 ml 02/29/20 18:00 03/02/20 15:53 Guaifenesin Dm 100-10/5 Ml Udcup PO 15 ml Q4H PRN Administration Cough Diltiazem HCl 125 mg/ Sodium 125 mls @ 0 mls/hr 03/02/20 09:00 03/03/20 04:31 Chloride IVPB 125 mls INF TAHIRA Administration Protocol Titrate Lidocaine 1 patch 03/02/20 16:00 03/03/20 13:46 Lidocaine 5% Patch TD 1 patch 1600 TAHIRA Administration Lisinopril 2.5 mg 03/01/20 09:00 03/03/20 08:59 Lisinopril 2.5 Mg Tab PO 2.5 mg DAILY TAHIRA Administration Loratadine 10 mg 03/01/20 09:00 03/03/20 09:00 Loratadine 10 Mg Tab PO 10 mg DAILY TAHIRA Administration Metoprolol Succinate 12.5 mg 03/01/20 21:00 03/03/20 09:00 Metoprolol Succinate Xl 25 Mg Tab PO 12.5 mg BID TAHIRA Administration Miscellaneous Medication 1 each 03/03/20 04:00 03/03/20 04:33 Lidocaine Patch Removal 1 Each TOP 1 each 0400 TAHIRA Administration Nitroglycerin 1 inch 02/29/20 18:04 03/03/20 09:01 Nitroglycerin 2% Ointment 1 Inch/1 Gm Packet TOP 1 inch TIDPRN PRN Administration Chest Pain Pantoprazole Sodium 40 mg 03/01/20 09:00 03/03/20 08:59 Pantoprazole 40 Mg Tab PO 40 mg DAILY TAHIRA Administration Potassium Chloride 20 meq 03/01/20 08:00 03/03/20 08:59 Potassium Chloride 20 Meq Tab PO 20 meq QAM-WM TAHIRA Administration Prednisone 40 mg 03/03/20 08:00 03/03/20 08:59 Prednisone 20 Mg Tab PO 40 mg QAM-WM TAHIRA Administration Senna/Docusate Sodium 2 tab 02/29/20 18:00 03/03/20 13:45 Senokot S 8.6-50 Mg Tab PO 2 tab BIDPRN PRN Administration Constipation Sodium Chloride 10 ml 03/02/20 09:00 03/03/20 09:01 Flush - Normal Saline 10 Ml Syringe IVF 10 ml Q12HR TAHIRA Administration - Exam General Appearance: NAD, awake alert Eye: PERRL, anicteric sclera ENT: normocephalic atraumatic, no oropharyngeal lesions Neck: no JVD Heart: RRR, no murmur, no gallops, no rubs Respiratory: CTAB, no wheezes, no rales, no ronchi Gastrointestinal: soft, non-tender, non-distended, normal bowel sounds Extremities: no cyanosis, no clubbing, no edema Skin: normal turgor, no lesions, no rashes Neurological: cranial nerve grossly intact, normal sensation to touch, no weakness Hosp A/P - Plan ChesT x ray: worsening bilateral lower lobe airspace disease may reflect a spiration or pneumonia. Stable moderate to prominent cardiomegaly. Severe thoracolumbar scoliosis This is a 79 year old male with past medical history of COPD and chronic respiratory failure who presented with shortness of breath. Originally there was concern for STEMI, but was admitted for possible NSTEMi Chronic respiratory failure - possibly secondary to pneumonia with underlying asthma - chest X ray shows worsening bilateral lower lobe airspace disease. On IV levaquin day 3. Developed some vtach so levaquin discontinued. Pulmonary does not feel the patient has pneumonia therefore will hold antibiotics - continue oral prednisone, duonebs History of atrial flutter s/p ablation Vtach - continue , lasix, coreg, digoxin . Diltiazem drip prn if rate uncontrolled - EP consulted for V tach, tikosyn and levaquin discontinued. Will continue to monitor Elevated troponin - patient denies chest pain. Troponin peaked at 0.073 - cardiology has been consulted, does not feel patient needs to go to the laborer aquatic life Macrocytic anemia- resolved
[2020-03-04] MEDS: Diltiazem 125 MG in Sodium Chloride 0.9% 100 ML IVPB SCH (02:39)
[2020-03-04 03:31] LABS: Hemoglobin 13.1 g/dL (14.0-18.0); Platelet Count 158 thou/uL (130-400)
[2020-03-04 03:49] LABS: Anion Gap 12 mmol/L (10-20); BUN (Urea Nitrogen) 28 mg/dL (8.4-25.7); Calc. Creatinine Clearance 70 mL/min (70-130); Calcium 8.7 mg/dL (7.8-10.44); Carbon Dioxide 30 mmol/L (23-31); Chloride 102 mmol/L (98-107); Estimated GFR-MDRD 81; Glucose 102 mg/dL (83-110); Potassium 3.5 mmol/L (3.5-5.1); Sodium 140 mmol/L (136-145)
[2020-03-04] MEDS: Acetaminophen 325 MG TAB PO PRN (04:13)
[2020-03-04] MEDS: Lidocaine Patch Removal 1 EACH TOP SCH (04:16)
[2020-03-04] MEDS: Albuterol Sulfate 2.5 mg/3 ml Neb NEB SCH ×3 (07:04→18:47)
[2020-03-04] MEDS ORDERED: Diltiazem 125 MG in Sodium Chloride 0.9% 100 ML IVPB SCH (07:36)
[2020-03-04] MEDS: predniSONE 20 MG TAB PO SCH (08:52)
[2020-03-04] MEDS: Digoxin 0.25 MG TAB PO SCH (08:52)
[2020-03-04] MEDS: Apixaban 2.5 MG TAB PO SCH ×2 (08:52→22:14)
[2020-03-04] MEDS: Potassium Chloride 20 MEQ TAB PO SCH (08:52)
[2020-03-04] MEDS: Senokot S 8.6-50 MG TAB PO PRN (08:52)
[2020-03-04] MEDS: Loratadine 10 MG TAB PO SCH (08:53)
--- NOTE | 2020-03-04 08:54 | CON ---
DATE OF CONSULTATION: 03/03/2020 REFERRING PHYSICIANS: Dr. Radha Heredia and Dr. Edmundo Harry. HISTORY OF PRESENT ILLNESS: I am seeing Mr. 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 His problems are; 1. Ventricular tachycardia, possibly with torsade like arrhythmia requiring ICD shocks. 2. Prior history of ventricular tachycardia mostly nonsustained with most recent therapy in June with ATP. 3. Recurrent atrial arrhythmias. a. Typical atrial flutter prompting a CTI ablation on 03/11/2016. b. Paroxysmal atrial fibrillation/atrial tachycardia runs prompting initiation of Tikosyn in January 2018, nonsustained atrial arrhythmia since only. 4. Chronic systolic congestive heart failure with reduced LVEF of 30% to 35% on echo around 2017. 5. Advanced pulmonary disease with kyphoscoliosis and COPD with frequent exacerbation. 6. Hypertension. 7. Chronic anticoagulation with Eliquis. ALLERGIES: IBUPROFEN. MEDICATIONS: At home included; 1. Omeprazole. 2. Potassium chloride. 3. Polyethylene glycol. 4. Vitamin D3. 5. Tikosyn 250 mcg twice a day. 6. Lipitor. 7. Lisinopril. 8. Prednisone. 9. Aspirin. 10. Multivitamins. 11. Claritin. 12. Terbinafine. 13. Digoxin. 14. Flonase. 15. Lasix. 16. Eliquis 2.5 mg twice a day. 17. Ferrous sulfate. 18. Doxycycline. 19. Ipratropium. 20. Zinc sulfate. 21. Ascorbic acid. 22. Diclofenac. 23. Albuterol. 24. Metoprolol. 25. Tramadol. 26. Fluticasone. 27. Olopatadine. 28. Tylenol. 29. Tramadol. 30. Calcium carbonate. Current medications also included; 1. Antibiotic Levaquin. 2. Diltiazem drip. SUBJECTIVE: Mr. Rosa was admitted with complaint of dyspnea and chest tightness. He was evaluated by Dr. Harry and Dr. 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 Chest pain was dull and radiated to the left shoulder, pressure- like sensation. He has no PND or orthopnea. No stroke-like symptoms noted. No fever, chills, or cough. REVIEW OF SYSTEMS: Rest of 12-point system otherwise unremarkable. PAST MEDICAL HISTORY: As above. He has severe kyphoscoliosis, possibly related to childhood polio. He has history of obstructive sleep apnea, atrial fibrillation, ventricular tachycardia, and cardiomyopathy. PAST SURGICAL HISTORY: Significant for dual-chamber ICD implantation, hernia repair, right forearm surgery, TURP, left heart catheterization in 2009 showing no significant coronary artery disease. OBJECTIVE DATA: VITAL SIGNS: Blood pressure 122/60, heart rate 81, and respiratory rate is 26. The patient is afebrile with 97.7 degrees Fahrenheit. GENERAL: Alert and oriented man, in no apparent distress. NECK: Supple. Jugular veins not distended. CHEST: Coarse. No crackles. HEART: Sounds are irregularly irregular. S1 and S2 are variable. There are no murmur or gallop. Left precordial ICD insertion site is well healed. Severe kyphoscoliosis noted. ABDOMEN: Benign. Bowel sounds positive. EXTREMITIES: Lower extremities without edema, clubbing, or cyanosis. DATABASE: EKG is reviewed, revealing initially an atrial tachycardia at the rate of 140 beats per minute. Subsequent EKGs reveals sinus rhythm with occasional PVCs. The QTc on the first EKG in chart in sinus rhythm 486 millisecond. Most recent EKG from 03/02/2020 reveals a QTc of 513 millisecond. Telemetry strips also reviewed revealing an episode of polymorphic appearing ventricular tachycardia with signs of torsade like arrhythmia by couplet of PVCs and a slight pause afterwards. Reviewed the ICD interrogation from the revealing a Medtronic dual-chamber ICD with battery longevity of 7.1 years. Lead parameters are adequate sensing 0.8 mV in atrium and 4.9 mV in the right ventricle. The atrial fibrillation burden is low, although more exacerbated in the end of December beginning of January months. The total burden is 1.4% currently. A ventricular tachycardia had a paced terminated episode back in June last year. Atrial fibrillation is on monitor. The optimal measurements are at baseline. Nonsustained VT monitors are noted. LABORATORY DATA: White count is 7.5, hemoglobin 13.7, and platelet count is 153. Sodium 138, potassium 4.4, BUN is 28, creatinine 0.93, and magnesium is 2.2. Troponin I is 0.071, previously 0.064 and 0.073. The chest x-ray report from 02/29/2020 reveals bilateral lower lobe airspace disease, stable, moderate cardiomegaly, sever thoracolumbar scoliosis, osteopenia, stable dual lead ICD. ASSESSMENT AND PLAN: Mr. Rosa is a pleasant 79-year-old man with history of congestive heart failure and nonischemic cardiomyopathy, he has ventricular tachyarrhythmia episodes as well as recurrent atrial arrhythmias. In the past, atrial arrhythmias were distant reasonably suppressed with medium dose dofetilide. Currently, the episodes are exacerbated, possibly due to the pulmonary disease. He has been treated with antibiotics with Levaquin. His QTc is still prolonged and could be contributing to his torsade like ventricular tachycardia though which was adequately detected and treated by the device. At this point, I would recommend holding both Levaquin and dofetilide transiently. Once the QT normalizing, resuming dofetilide would be a good option. In the meantime, continue diltiazem for rate control. We will obtain in-person interrogation of the device and possibly turning antitachycardia pacing therapies on to cover for slower atrial arrhythmias. Job ID: [id number] [facility]
[2020-03-04] MEDS: Lisinopril 2.5 MG TAB PO SCH (08:55)
[2020-03-04] MEDS ORDERED: Azithromycin 250 MG TAB PO SCH (09:00)
[2020-03-04] MEDS ORDERED: Potassium Chloride 20 MEQ TAB PO SCH (09:00)
[2020-03-04] MEDS ORDERED: cefTRIAXone Sodium 1,000 MG in Syringe 0 ML IVPB SCH (09:00)
[2020-03-04] MEDS: Lidocaine 5% Patch TD SCH (14:38)
--- NOTE | 2020-03-04 15:20 | PRG ---
DATE OF SERVICE: 03/04/2020 SUBJECTIVE: Mr. Rosa is doing well. OBJECTIVE: VITAL SIGNS: He is afebrile, heart rates in 80s, respiratory rates in the teens, oximetry is 100% on 3 L, blood pressure 126/59. He has had no more ventricular tachycardia. LUNGS: Clear. HEART: Regular rhythm. ABDOMEN: Soft. IMPRESSION: 1. Recurrent atrial fibrillation that is becoming more frequent. 2. Status post pacemaker/defibrillator. 3. Ventricular tachycardia with cardioversion by his defibrillator. 4. Systolic cardiomyopathy. 5. Chronic persistent asthma. 6. Severe kyphoscoliosis with deconditioning secondary to polio when he was young. 7. Recent negative stress test. PLAN: Continue supportive care. He is stable to move out of intermediate care in my opinion. There is no reason to keep Levaquin going, so this will be discontinued per Dr. Arora's recommendation since he has a slightly prolonged QT. I do not feel he has pneumonia or bronchitis, so I would just discontinue antibiotics altogether. He has not been bronchospastic since he has been here either. We will decrease his steroid dosing. All of his shortness of breath in my opinion has been related to his rapid atrial fibrillation that occurs intermittently. Job ID: [id number]
--- NOTE | 2020-03-04 17:15 | PDOC.HOSPP ---
- Subjective Encounter Date: 03/04/20 Encounter Time: 06:00 Subjective: F/u: vtach, afib The patient's shortness of breath is better. He reports no further episodes of tachycardia. He denies significant cough - Objective Vital Signs & Weight: Vital Signs (12 hours) Temp Pulse Resp BP BP BP Pulse Ox 03/04/20 15:11 98.0 F 03/04/20 14:47 89 19 100 03/04/20 11:18 99.1 F 03/04/20 09:10 96/51 L 99/62 03/04/20 08:55 75 100/58 L 03/04/20 08:52 75 03/04/20 07:44 98 03/04/20 07:28 97.6 F 03/04/20 07:07 99 03/04/20 07:04 75 24 H 99 03/04/20 06:00 97.4 F L Pulse Ox Pulse Ox 03/04/20 15:11 03/04/20 14:47 03/04/20 11:18 03/04/20 09:10 100 100 03/04/20 08:55 03/04/20 08:52 03/04/20 07:44 03/04/20 07:28 03/04/20 07:07 03/04/20 07:04 03/04/20 06:00 Weight Weight 159 lb 13.362 oz Most Recent Monitor Data Heart Rate from ECG 75 NIBP 121/62 NIBP BP-Mean 81 Respiration from ECG 35 SpO2 100 I&O: 03/03/20 03/04/20 03/05/20 06:59 06:59 06:59 Intake Total 1203 1098.6 Output Total 1895 2400 Balance -692 -1301.4 Result Diagrams: 03/04/20 03:20 03/04/20 03:20 Hospitalist ROS - Review of Systems Constitutional: denies: fever, chills - Medication Medications: Active Medications Generic Name Dose Route Start Last Admin Trade Name Freq PRN Reason Stop Dose Admin Acetaminophen 650 mg 02/29/20 18:00 03/04/20 04:13 Acetaminophen 325 Mg Tab PO 650 mg Q4H PRN Administration Headache/Fever/Mild Pain (1-3) Albuterol Sulfate 2.5 mg 02/29/20 19:00 03/04/20 14:47 Albuterol Sulfate 2.5 Mg/3 Ml Neb NEB 2.5 mg [id number] TAHIRA Administration Apixaban 2.5 mg 02/29/20 21:00 03/04/20 08:52 Apixaban 2.5 Mg Tab PO 2.5 mg BID ATHIRA Administration Digoxin 0.25 mg 03/02/20 09:00 03/04/20 08:52 Digoxin 0.25 Mg Tab PO 0.25 mg DAILY TAHIRA Administration Guaifenesin/Dextromethorphan 15 ml 02/29/20 18:00 03/02/20 15:53 Guaifenesin Dm 100-10/5 Ml Udcup PO 15 ml Q4H PRN Administration Cough Lidocaine 1 patch 03/02/20 16:00 03/04/20 14:38 Lidocaine 5% Patch TD 1 patch 1600 TAHIRA Administration Lisinopril 2.5 mg 03/01/20 09:00 03/04/20 08:55 Lisinopril 2.5 Mg Tab PO Not Given DAILY TAHIRA Loratadine 10 mg 03/01/20 09:00 03/04/20 08:53 Loratadine 10 Mg Tab PO 10 mg DAILY TAHIRA Administration Metoprolol Succinate 12.5 mg 03/01/20 21:00 03/04/20 10:11 Metoprolol Succinate Xl 25 Mg Tab PO 12.5 mg BID TAHIRA Administration Miscellaneous Medication 1 each 03/03/20 04:00 03/04/20 04:16 Lidocaine Patch Removal 1 Each TOP 1 each 0400 TAHIRA Administration Nitroglycerin 1 inch 02/29/20 18:04 03/03/20 09:01 Nitroglycerin 2% Ointment 1 Inch/1 Gm Packet TOP 1 inch TIDPRN PRN Administration Chest Pain Pantoprazole Sodium 40 mg 03/01/20 09:00 03/04/20 08:52 Pantoprazole 40 Mg Tab PO 40 mg DAILY TAHIRA Administration Potassium Chloride 20 meq 03/01/20 08:00 03/04/20 08:52 Potassium Chloride 20 Meq Tab PO 20 meq QAM-WM TAHIRA Administration Senna/Docusate Sodium 2 tab 02/29/20 18:00 03/04/20 08:52 Senokot S 8.6-50 Mg Tab PO 2 tab BIDPRN PRN Administration Constipation Sodium Chloride 10 ml 03/02/20 09:00 03/04/20 09:01 Flush - Normal Saline 10 Ml Syringe IVF 10 ml Q12HR TAHIRA Administration - Exam General Appearance: NAD, awake alert Eye: PERRL, anicteric sclera ENT: normocephalic atraumatic, no oropharyngeal lesions Neck: no JVD Heart: RRR, no murmur, no gallops, no rubs Respiratory: no wheezes, no rales, no ronchi Respiratory - other findings: diminished breath sounds at the bases Gastrointestinal: soft, non-tender, non-distended, normal bowel sounds Extremities: no cyanosis, no clubbing, no edema Skin: normal turgor, no lesions, no rashes Neurological: normal sensation to touch Hosp A/P - Plan ChesT x ray: worsening bilateral lower lobe airspace disease may reflect aspiration or pneumonia. Stable moderate to prominent cardiomegaly. Severe th oracolumbar scoliosis This is a 79 year old male with past medical history of COPD and chronic res piratory failure who presented with shortness of breath. Originally there was concern for STEMI, but was admitted for possible NSTEMi Chronic respiratory failure - possibly secondary to pneumonia with underlying asthma - chest X ray shows worsening bilateral lower lobe airspace disease. Received three days of levaquin and then discontinued due to vtach - states SOB is improving and has no significant cough. Will hold antibiotics - continue oral prednisone, duonebs History of atrial flutter s/p ablation Vtach - continue , lasix, coreg, digoxin . Diltiazem drip prn if rate uncontrolled - EP consulted for V tach, tikosyn and levaquin discontinued. Will continue to monitor Elevated troponin - patient denies chest pain. 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
--- NOTE | 2020-03-04 19:14 | PRG ---
DATE OF SERVICE: 03/04/2020 SUBJECTIVE: Mr. Rosa seems to be doing fair, somewhat improved with palpitations. Overnight, he maintained sinus rhythm and no ventricular tachyarrhythmias are seen. He denies PND or orthopnea. No chest pain. REVIEW OF SYSTEMS: Rest of review of systems unremarkable. OBJECTIVE DATA: VITAL SIGNS: Blood pressure is 121/62, heart rate 75, temperature is 98.0 degrees Fahrenheit. GENERAL: Alert and oriented man, in no apparent distress. NECK: Supple. Jugular vein is not distended. CHEST: Coarse with severe kyphoscoliosis noted. HEART: Sounds are regular to rate and rhythm. Left precordial pacemaker is well healed. ABDOMEN: Benign. Bowel sounds positive. EXTREMITIES: Lower extremities without edema, clubbing, or cyanosis. DATABASE: The EKG is reviewed today, revealing atrially and ventricularly paced rhythm, QT is prolonged at 460 milliseconds, but with widened QRS also noted at 186 milliseconds. The QTc is 520 milliseconds. LABORATORY DATA: Sodium 140, potassium 3.5, BUN is 28, creatinine 0.91. ASSESSMENT AND PLAN: 1. Mr. Rosa is a 79-year-old man with prior history of congestive heart failure, nonischemic cardiomyopathy, who also has severe kyphoscoliosis likely related to pulmonary disease. He was readmitted with chest tightness sensation while on the monitor, he received an ICD shock. The monitor seems to indicate a torsade like arrhythmia and his QTc is actually increased. At this point, I am recommending discontinuing any QT prolonging agents including the dofetilide and Levaquin. This was stopped yesterday. For now, we will continue monitoring him off these medications, repeat EKGs. Once the QTc is downtrending, dofetilide might be restarted. In the meantime, keep electrolytes in good range, keep potassium over 4, magnesium over 2. 2. Atypical chest pain, not felt to be ischemic. 3. Chronic obstructive pulmonary disease. No definite evidence of pneumonia, now off antibiotics as in agreement with Dr. Medrano. We will follow with you. Job ID: [id number]
[2020-03-05] MEDS: Albuterol Sulfate 2.5 mg/3 ml Neb NEB SCH ×4 (00:20→19:37)
[2020-03-05] MEDS: Acetaminophen 325 MG TAB PO PRN (01:09)
[2020-03-05 05:01] LABS: Hemoglobin 12.7 g/dL (14.0-18.0); Mean Corpuscular HGB CONC 32.6 g/dL (32.0-36.0); Mean Corpuscular Hemoglobin 33.3 pg (27.0-31.0); Mean Platelet Volume 8.7 fL (7.4-10.4); Platelet Count 150 thou/uL (130-400); RBC Distribution Width 12.6 % (11.5-14.5); Red Blood Cell (RBC) Count 3.82 mill/uL (4.70-6.10); White Blood Cell (WBC) Count 8.2 thou/uL (4.8-10.8)
[2020-03-05 05:22] LABS: Anion Gap 8 mmol/L (10-20); BUN (Urea Nitrogen) 23 mg/dL (8.4-25.7); Calc. Creatinine Clearance 83 mL/min (70-130); Calcium 8.9 mg/dL (7.8-10.44); Carbon Dioxide 32 mmol/L (23-31); Chloride 105 mmol/L (98-107); Estimated GFR-MDRD Greater than 90; Glucose 93 mg/dL (83-110); Potassium 3.9 mmol/L (3.5-5.1); Sodium 141 mmol/L (136-145)
[2020-03-05] MEDS: Lidocaine Patch Removal 1 EACH TOP SCH (05:58)
[2020-03-05] MEDS: Diltiazem 125 MG in Sodium Chloride 0.9% 100 ML IVPB SCH (05:59)
[2020-03-05] MEDS: Apixaban 2.5 MG TAB PO SCH ×2 (08:14→21:53)
[2020-03-05] MEDS: Lisinopril 2.5 MG TAB PO SCH (08:14)
[2020-03-05] MEDS: Digoxin 0.25 MG TAB PO SCH (08:14)
[2020-03-05] MEDS: predniSONE 20 MG TAB PO SCH (08:15)
[2020-03-05] MEDS: Furosemide 40 MG TAB PO SCH (08:15)
[2020-03-05] MEDS: Potassium Chloride 20 MEQ TAB PO SCH (08:15)
[2020-03-05] MEDS: Loratadine 10 MG TAB PO SCH (08:15)
--- NOTE | 2020-03-05 12:42 | PDOC.EP ---
- Subjective Date: 03/05/20 Time: 12:40 Interval History: arrhythmia and ICD management. No new events overnight. no new concerns/complaints - Review of Systems Constitutional: denies: chills, sweats, weakness Respiratory: reports: shortness of breath Cardiology: denies: chest pain, edema, heart racing, light headedness, palpitations, passing out Gastrointestinal: denies: abdominal pain, constipation, nausea, vomitting Musculoskeletal: denies: unstable gait, falls - Objective Allergies/Adverse Reactions: Allergies Allergy/AdvReac Type Severity Reaction Status Date / Time ibuprofen [From Motrin] Allergy Verified 01/30/19 15:13 Current Medications Acetaminophen (Acetaminophen 325 Mg Tab) 650 mg PO Q4H PRN PRN Reason: Headache/Fever/Mild Pain (1-3) Last Admin: 03/05/20 01:09 Dose: 650 mg Documented by: Acetaminophen (Acetaminophen 650 Mg Suppository) 650 mg [place] Q4H PRN PRN Reason: Headache/Fever/Mild Pain (1-3) Albuterol Sulfate (Albuterol Sulfate 2.5 Mg/3 Ml Neb) 2.5 mg NEB [id number] [facility] Last Admin: 03/05/20 12:20 Dose: 2.5 mg Documented by: Albuterol Sulfate (Albuterol 200 Puff (6.7gm Inhaler)) 2 puff INH Q4H PRN PRN Reason: SOB &/or Wheezing Apixaban (Apixaban 2.5 Mg Tab) 2.5 mg PO BID [facility] Last Admin: 03/05/20 08:14 Dose: 2.5 mg Documented by: Digoxin (Digoxin 0.25 Mg Tab) 0.25 mg PO DAILY [facility] Last Admin: 03/05/20 08:14 Dose: 0.25 mg Documented by: Furosemide (Furosemide 40 Mg Tab) 40 mg PO DAILY-AC [facility] Last Admin: 03/05/20 08:15 Dose: 40 mg Documented by: Guaifenesin/Dextromethorphan (Guaifenesin Dm 100-10/5 Ml Udcup) 15 ml PO Q4H PRN PRN Reason: Cough Last Admin: 03/02/20 15:53 Dose: 15 ml Documented by: Diltiazem HCl 125 mg/ Sodium (Chloride) 125 mls @ 5 mls/hr IVPB INF [facility] Last Admin: 03/05/20 05:59 Dose: 125 mls Documented by: Lidocaine (Lidocaine 5% Patch) 1 patch TD 1600 [facility] Last Admin: 03/04/20 14:38 Dose: 1 patch Documented by: Lisinopril (Lisinopril 2.5 Mg Tab) 2.5 mg PO DAILY [facility] Last Admin: 03/05/20 08:14 Dose: 2.5 mg Documented by: Loratadine (Loratadine 10 Mg Tab) 10 mg PO DAILY [facility] Last Admin: 03/05/20 08:15 Dose: 10 mg Documented by: Metoprolol Succinate (Metoprolol Succinate Xl 25 Mg Tab) 12.5 mg PO BID [facility] Last Admin: 03/05/20 08:15 Dose: 12.5 mg Documented by: Miscellaneous Medication (Lidocaine Patch Removal 1 Each) 1 each TOP 0400 [facility] Last Admin: 03/05/20 05:58 Dose: 1 each Documented by: Miscellaneous Medication (Electrolyte Replacement Protoc 1 Each Each) 1 each FS PRN PRN PRN Reason: ELECTROYTES Nitroglycerin (Nitroglycerin 2% Ointment 1 Inch/1 Gm Packet) 1 inch TOP TIDPRN PRN PRN Reason: Chest Pain Last Admin: 03/03/20 09:01 Dose: 1 inch Documented by: Ondansetron HCl (Ondansetron Odt 4 Mg Tab) 4 mg PO Q6H PRN PRN Reason: Nausea/Vomiting Ondansetron HCl (Ondansetron Pf 4 Mg/2 Ml Vial) 4 mg IVP Q6H PRN PRN Reason: Nausea/Vomiting Pantoprazole Sodium (Pantoprazole 40 Mg Tab) 40 mg PO DAILY [facility] Last Admin: 03/05/20 08:15 Dose: 40 mg Documented by: Potassium Chloride (Potassium Chloride 20 Meq Tab) 20 meq PO QAM-WM [facility] Last Admin: 03/05/20 08:15 Dose: 20 meq Documented by: Prednisone (Prednisone 20 Mg Tab) 20 mg PO QAM-[facility] Last Admin: 03/05/20 08:15 Dose: 20 mg Documented by: Senna/Docusate Sodium (Senokot S 8.6-50 Mg Tab) 2 tab PO BIDPRN PRN PRN Reason: Constipation Last Admin: 03/04/20 08:52 Dose: 2 tab Documented by: Sodium Chloride (Flush - Normal Saline 10 Ml Syringe) 10 ml IVF Q12HR [facility] Last Admin: 03/05/20 08:16 Dose: Not Given Documented by: Sodium Chloride (Flush - Normal Saline 10 Ml Syringe) 10 ml IVF PRN PRN PRN Reason: Saline Flush Vital Signs & Weight: Vital Signs Temp Pulse Pulse Pulse Resp BP BP 03/05/20 12:20 89 18 03/05/20 11:30 98.1 F 89 18 03/05/20 08:36 80 82 93/68 116/58 L 03/05/20 08:14 76 03/05/20 08:10 98.3 F 75 18 03/05/20 07:41 96 18 03/05/20 03:52 98.7 F 76 20 03/05/20 03:09 03/05/20 02:00 03/05/20 01:30 98.0 F 81 18 BP BP Pulse Ox 03/05/20 12:20 03/05/20 11:30 114/53 L 100 03/05/20 08:36 03/05/20 08:14 03/05/20 08:10 129/61 100 03/05/20 07:41 03/05/20 03:52 122/58 L 97 03/05/20 03:09 98 03/05/20 02:00 98 03/05/20 01:30 135/66 92 L Weight 157 lb 6.561 oz I/O: I/O 03/04/20 03/05/20 03/06/20 06:59 06:59 06:59 Intake Total 1098.6 850 Output Total 2400 775 Balance -1301.4 75 - Physical Exam General: alert & oriented x3, appears well HEENT: mucus membranes moist, normocephaly Neck: supple neck, midline trachea, no JVD/HJR Cardiology: irregularly irregular, tachycardia Lungs: decreased breath sounds Neurology: cranial nerve 2-12 intact, grossly intact, no lateralizing findings Abdomen: unremarkable, active bowel sounds, no pulsations/bruits - Labs Result Diagrams: 03/05/20 04:32 03/05/20 04:32 - EKG Interpretation EKG Method: Telemetry (MAT) - Assessment/Plan Assessment/Plan: Mr. Rosa is a 79-year-old man with prior history of congestive heart failure, nonischemic cardiomyopathy, who also has severe kyphoscoliosis likely related to pulmonary disease. He was readmitted with chest tightness sensation. While on the monitor, he received an ICD shock. The monitor seems to indicate a torsade like arrhythmia and his QTc is actually increased. I stopped any QT prolonging agents (including the dofetilide and Levaquin). Repeat ECG For now, we will continue monitoring him off these medications, repeat EKGs. Once the QTc is downtrending, dofetilide might be restarted. In the meantime, keep electrolytes in good range, keep potassium over 4, magnesium over 2. 1. QT prolongation -Tikosyn + levaquin. Stopped 2. Atypical chest pain, not felt to be ischemic. 3.Asthma, chronic, stable. No definite evidence of pneumonia, now off antibiotics as in agreement with Dr. Medrano. Historically, Tikosyn has been quite effective at suppressing his MAT since his hospitalization last year, with no sustained events and average ventricular rates approximately 80bpm per ICD report. In early january he started having increased SOB/dyspnea and MAT activity. It is not clear which came first. By late january the MAT had quieted. Now, off tikosyn, I see his MAT recurring. He requires continued antiarrhythmic therapy and I plan to resume Tikosyn, possibly tomorrow if QT/QTc is stable. Will need to obtain 12 lead without RV p acing to assess this. His only alternative antiarrhythmic option is amiodarone. Pulmonology mentions asthma, maybe not COPD? If pulm disease is severe we should avoid amiodarone. Tikosyn works well for him.
[2020-03-05] MEDS: Lidocaine 5% Patch TD SCH (16:54)
--- NOTE | 2020-03-05 18:19 | PDOC.HOSPP ---
- Subjective Encounter Date: 03/05/20 Encounter Time: 18:18 Subjective: F/u: SOB The patient is donig better. He states his shortness of breath is better. He was on cardizem drip at 5 today. He denies palpitations - Objective Vital Signs & Weight: Vital Signs (12 hours) Temp Pulse Pulse Pulse Resp BP BP 03/05/20 16:40 98.4 F 87 18 03/05/20 12:20 89 18 03/05/20 11:30 98.1 F 89 18 03/05/20 08:36 80 82 93/68 116/58 L 03/05/20 08:14 76 03/05/20 08:10 98.3 F 75 18 03/05/20 07:41 96 18 BP BP Pulse Ox 03/05/20 16:40 116/58 L 99 03/05/20 12:20 03/05/20 11:30 114/53 L 100 03/05/20 08:36 03/05/20 08:14 03/05/20 08:10 129/61 100 03/05/20 07:41 Weight Weight 157 lb 6.561 oz Most Recent Monitor Data Heart Rate from ECG 97 NIBP 124/67 NIBP BP-Mean 86 Respiration from ECG 14 SpO2 98 I&O: 03/04/20 03/05/20 03/06/20 06:59 06:59 06:59 Intake Total 1098.6 850 Output Total 2400 775 Balance -1301.4 75 Result Diagrams: 03/05/20 04:32 03/05/20 04:32 Hospitalist ROS - Review of Systems Constitutional: denies: fever, chills - Medication Medications: Active Medications Generic Name Dose Route Start Last Admin Trade Name Freq PRN Reason Stop Dose Admin Acetaminophen 650 mg 02/29/20 18:00 03/05/20 01:09 Acetaminophen 325 Mg Tab PO 650 mg Q4H PRN Administration Headache/Fever/Mild Pain (1-3) Albuterol Sulfate 2.5 mg 02/29/20 19:00 03/05/20 12:20 Albuterol Sulfate 2.5 Mg/3 Ml Neb NEB 2.5 mg [id number] [facility] Administration Apixaban 2.5 mg 02/29/20 21:00 03/05/20 08:14 Apixaban 2.5 Mg Tab PO 2.5 mg BID [facility] Administration Digoxin 0.25 mg 03/02/20 09:00 03/05/20 08:14 Digoxin 0.25 Mg Tab PO 0.25 mg DAILY [facility] Administration Furosemide 40 mg 03/05/20 07:30 03/05/20 08:15 Furosemide 40 Mg Tab PO 40 mg DAILY-AC [facility] Administration Guaifenesin/Dextromethorphan 15 ml 02/29/20 18:00 03/02/20 15:53 Guaifenesin Dm 100-10/5 Ml Udcup PO 15 ml Q4H PRN Administration Cough Diltiazem HCl 125 mg/ Sodium 125 mls @ 5 mls/hr 03/04/20 18:45 03/05/20 05:59 Chloride IVPB 125 mls INF [facility] Administration 5 MG/HR Lidocaine 1 patch 03/02/20 16:00 03/05/20 16:54 Lidocaine 5% Patch TD 1 patch 1600 [facility] Administration Lisinopril 2.5 mg 03/01/20 09:00 03/05/20 08:14 Lisinopril 2.5 Mg Tab PO 2.5 mg DAILY [facility] Administration Loratadine 10 mg 03/01/20 09:00 03/05/20 08:15 Loratadine 10 Mg Tab PO 10 mg DAILY [facility] Administration Metoprolol Succinate 12.5 mg 03/01/20 21:00 03/05/20 08:15 Metoprolol Succinate Xl 25 Mg Tab PO 12.5 mg BID [facility] Administration Miscellaneous Medication 1 each 03/03/20 04:00 03/05/20 05:58 Lidocaine Patch Removal 1 Each TOP 1 each 0400 [facility] Administration Nitroglycerin 1 inch 02/29/20 18:04 03/03/20 09:01 Nitroglycerin 2% Ointment 1 Inch/1 Gm Packet TOP 1 inch TIDPRN PRN Administration Chest Pain Pantoprazole Sodium 40 mg 03/01/20 09:00 03/05/20 08:15 Pantoprazole 40 Mg Tab PO 40 mg DAILY [facility] Administration Potassium Chloride 20 meq 03/01/20 08:00 03/05/20 08:15 Potassium Chloride 20 Meq Tab PO 20 meq QAM-WM [facility] Administration Prednisone 20 mg 03/05/20 08:00 03/05/20 08:15 Prednisone 20 Mg Tab PO 20 mg QAM-WM [facility] Administration Senna/Docusate Sodium 2 tab 02/29/20 18:00 03/04/20 08:52 Senokot S 8.6-50 Mg Tab PO 2 tab BIDPRN PRN Administration Constipation Sodium Chloride 10 ml 03/02/20 09:00 03/05/20 08:16 Flush - Normal Saline 10 Ml Syringe IVF Not Given Q12HR [facility] - Exam General Appearance: NAD, awake alert Eye: PERRL, anicteric sclera ENT: normocephalic atraumatic Neck: no JVD Heart: RRR, no murmur, no gallops, no rubs Respiratory: CTAB, no wheezes, no rales, no ronchi Gastrointestinal: soft, non-tender, non-distended, normal bowel sounds Extremities: no cyanosis, no clubbing, no edema Skin: normal turgor, no lesions, no rashes Musculoskeletal - other findings: severe kyphoscoliosis Hosp A/P - Plan ChesT x ray: worsening bilateral lower lobe airspace disease may reflect aspiration or pneumonia. Stable moderate to prominent cardiomegaly. Severe thoracolumbar scoliosis This is a 79 year old male with past medical history of COPD and chronic respiratory failure who presented with shortness of breath. Originally there was concern for STEMI, but was admitted for possible NSTEMi Chronic respiratory failure - possibly secondary to pneumonia with underlying asthma - chest X ray shows worsening bilateral lower lobe airspace disease. Received three days of levaquin and then discontinued due to vtach - states SOB is improving and has no significant cough. Continue to hold antib iotics - continue oral prednisone, duonebs History of atrial flutter s/p ablation Vtach - continue , lasix, coreg, digoxin . Diltiazem drip prn if rate uncontrolled - EP consulted for V tach, tikosyn and levaquin discontinued. Obtaining serial EKG, possibly resume tikosyn if QT prolongation improves Elevated troponin - patient denies chest pain. Troponin peaked at 0.073 - cardiology was consulted, did not feel patient needs to go to the microbiology lab assistant Anemia - Hb 12.7, will monitor
[2020-03-06] MEDS: Albuterol Sulfate 2.5 mg/3 ml Neb NEB SCH ×4 (00:01→19:25)
[2020-03-06 04:35] LABS: Hemoglobin 13.9 g/dL (14.0-18.0); Platelet Count 170 thou/uL (130-400)
[2020-03-06 04:56] LABS: Anion Gap 11 mmol/L (10-20); BUN (Urea Nitrogen) 22 mg/dL (8.4-25.7); Calc. Creatinine Clearance 79 mL/min (70-130); Calcium 8.7 mg/dL (7.8-10.44); Carbon Dioxide 30 mmol/L (23-31); Chloride 104 mmol/L (98-107); Estimated GFR-MDRD Greater than 90; Glucose 95 mg/dL (83-110); Potassium 3.8 mmol/L (3.5-5.1); Sodium 141 mmol/L (136-145)
[2020-03-06] MEDS: Lidocaine Patch Removal 1 EACH TOP SCH (05:13)
[2020-03-06] MEDS: Furosemide 40 MG TAB PO SCH (08:20)
[2020-03-06] MEDS: Potassium Chloride 20 MEQ TAB PO SCH (08:21)
[2020-03-06] MEDS: predniSONE 20 MG TAB PO SCH (08:21)
[2020-03-06] MEDS: Apixaban 2.5 MG TAB PO SCH ×2 (08:21→21:28)
[2020-03-06] MEDS: Loratadine 10 MG TAB PO SCH (08:22)
[2020-03-06] MEDS: Digoxin 0.25 MG TAB PO SCH (08:22)
[2020-03-06] MEDS: Lisinopril 2.5 MG TAB PO SCH (08:22)
[2020-03-06] MEDS: Diltiazem 125 MG in Sodium Chloride 0.9% 100 ML IVPB SCH (11:32)
[2020-03-06] MEDS: Lidocaine 5% Patch TD SCH (15:28)
--- NOTE | 2020-03-06 16:47 | PDOC.HOSPP ---
- Subjective Encounter Date: 03/06/20 Encounter Time: 16:46 Subjective: F/u: shortness of breath, tachycardia The patient states his improved. He is now able to ambulate outside of his room which she was not able to do earlier this week. He denies cough. 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 Repeat EKG two hours later showed QTc 422. Plan to resume tikosyn today . He is still on diltiazem drip of 5 - Objective Vital Signs & Weight: Vital Signs (12 hours) Temp Pulse Pulse Resp BP BP BP 03/06/20 15:26 98.7 F 78 20 132/68 03/06/20 11:25 75 19 111/58 L 03/06/20 11:09 97.8 F 78 15 102/59 L 03/06/20 09:45 75 132/57 L 129/58 L 03/06/20 08:22 75 03/06/20 08:00 98.6 F 80 83 H 83/49 L 03/06/20 07:12 75 16 Pulse Ox 03/06/20 15:26 95 03/06/20 11:25 98 03/06/20 11:09 89 L 03/06/20 09:45 03/06/20 08:22 03/06/20 08:00 95 03/06/20 07:12 Weight Weight 153 lb 12.8 oz Most Recent Monitor Data Heart Rate from ECG 97 NIBP 124/67 NIBP BP-Mean 86 Respiration from ECG 14 SpO2 98 I&O: 03/05/20 03/06/20 03/07/20 06:59 06:59 06:59 Intake Total 850 1260 Output Total 775 2050 Balance 75 -790 Result Diagrams: 03/06/20 04:26 03/06/20 04:26 Hospitalist ROS - Review of Systems Constitutional: denies: fever, chills - Medication Medications: Active Medications Generic Name Dose Route Start Last Admin Trade Name Freq PRN Reason Stop Dose Admin Acetaminophen 650 mg 02/29/20 18:00 03/05/20 01:09 Acetaminophen 325 Mg Tab PO 650 mg Q4H PRN Administration Headache/Fever/Mild Pain (1-3) Albuterol Sulfate 2.5 mg 02/29/20 19:00 03/06/20 16:38 Albuterol Sulfate 2.5 Mg/3 Ml Neb NEB Not Given [id number] [facility] Apixaban 2.5 mg 02/29/20 21:00 03/06/20 08:21 Apixaban 2.5 Mg Tab PO 2.5 mg BID [facility] Administration Digoxin 0.25 mg 03/02/20 09:00 03/06/20 08:22 Digoxin 0.25 Mg Tab PO 0.25 mg DAILY [facility] Administration Furosemide 40 mg 03/05/20 07:30 03/06/20 08:20 Furosemide 40 Mg Tab PO 40 mg DAILY-AC [facility] Administration Guaifenesin/Dextromethorphan 15 ml 02/29/20 18:00 03/02/20 15:53 Guaifenesin Dm 100-10/5 Ml Udcup PO 15 ml Q4H PRN Administration Cough Diltiazem HCl 125 mg/ Sodium 125 mls @ 5 mls/hr 03/04/20 18:45 03/06/20 11:32 Chloride IVPB 125 mls INF [facility] Administration 5 MG/HR Lidocaine 1 patch 03/02/20 16:00 03/06/20 15:28 Lidocaine 5% Patch TD 1 patch 1600 [facility] Administration Lisinopril 2.5 mg 03/01/20 09:00 03/06/20 08:22 Lisinopril 2.5 Mg Tab PO 2.5 mg DAILY [facility] Administration Loratadine 10 mg 03/01/20 09:00 03/06/20 08:22 Loratadine 10 Mg Tab PO 10 mg DAILY [facility] Administration Metoprolol Succinate 12.5 mg 03/01/20 21:00 03/06/20 08:23 Metoprolol Succinate Xl 25 Mg Tab PO 12.5 mg BID [facility] Administration Miscellaneous Medication 1 each 03/03/20 04:00 03/06/20 05:13 Lidocaine Patch Removal 1 Each TOP Not Given 0400 [facility] Nitroglycerin 1 inch 02/29/20 18:04 03/03/20 09:01 Nitroglycerin 2% Ointment 1 Inch/1 Gm Packet TOP 1 inch TIDPRN PRN Administration Chest Pain Pantoprazole Sodium 40 mg 03/01/20 09:00 03/06/20 08:23 Pantoprazole 40 Mg Tab PO 40 mg DAILY [facility] Administration Potassium Chloride 20 meq 03/01/20 08:00 03/06/20 08:21 Potassium Chloride 20 Meq Tab PO 20 meq QAM-WM [facility] Administration Prednisone 20 mg 03/05/20 08:00 03/06/20 08:21 Prednisone 20 Mg Tab PO 20 mg QAM-WM [facility] Administration Senna/Docusate Sodium 2 tab 02/29/20 18:00 03/04/20 08:52 Senokot S 8.6-50 Mg Tab PO 2 tab BIDPRN PRN Administration Constipation Sodium Chloride 10 ml 03/02/20 09:00 03/06/20 08:23 Flush - Normal Saline 10 Ml Syringe IVF 10 ml Q12HR [facility] Administration - Exam General Appearance: NAD, awake alert Eye: PERRL, anicteric sclera ENT: normocephalic atraumatic, no oropharyngeal lesions Neck: no JVD Heart: RRR, no murmur, no gallops, no rubs Respiratory: CTAB, no wheezes, no rales, no ronchi Gastrointestinal: soft, non-tender, non-distended, normal bowel sounds, no palpable masses, no hepatomegaly, no splenomegaly, no bruit Extremities: no cyanosis, no clubbing, no edema Skin: normal turgor, no lesions, no rashes Hosp A/P - Plan ChesT x ray: worsening bilateral lower lobe airspace disease may reflect aspiration or pneumonia. Stable moderate to prominent cardiomegaly. Severe thoracolumbar scoliosis This is a 79 year old male with past medical history of COPD and chronic respiratory failure who presented with shortness of breath. Originally there was concern for STEMI, but was admitted for possible NSTEMi History of atrial flutter s/p ablation Vtach - patient had episode of SVT and V tach 03/04. EP was consulted, tikosyn and levaquin were discontinued - QTC was prolonged. QTC today is 422, so tikosyn will be resumed today. Will need serial EKG for next few days - continue diltiazem drip Chronic respiratory failure - possibly secondary to pneumonia with underlying asthma - chest X ray showed worsening bilateral lower lobe airspace disease. Received three days of levaquin and then discontinued due to vtach - his breathing is improving and has no significant cough. He is on 2-3L of oxygen at [place]. Continue to hold antibiotics - continue oral prednisone, duonebs - will repeat chest Xray tomorrow to evaluate for improvement Elevated troponin - patient denies chest pain. Troponin peaked at 0.073 - cardiology was consulted, did not feel patient needs to go to the catheter builder Anemia - Hb 13.9, will monitor
--- NOTE | 2020-03-06 16:49 | PDOC.EP ---
- Subjective Date: 03/06/20 Time: 08:00 Interval History: reports shortness of breath is resolving. No new events overnight. no palpitations or perceived ICD therapies - Review of Systems Constitutional: denies: chills, fever, malaise, sweats Respiratory: reports: shortness of breath. denies: cough, sputum, wheezing Cardiology: denies: chest pain, edema, heart racing, light headedness, palpitations, passing out Gastrointestinal: denies: abdominal pain, constipation, nausea, vomitting - Objective Allergies/Adverse Reactions: Allergies Allergy/AdvReac Type Severity Reaction Status Date / Time ibuprofen [From Motrin] Allergy Verified 01/30/19 15:13 Current Medications Acetaminophen (Acetaminophen 325 Mg Tab) 650 mg PO Q4H PRN PRN Reason: Headache/Fever/Mild Pain (1-3) Last Admin: 03/05/20 01:09 Dose: 650 mg Documented by: Acetaminophen (Acetaminophen 650 Mg Suppository) 650 mg [place] Q4H PRN PRN Reason: Headache/Fever/Mild Pain (1-3) Albuterol Sulfate (Albuterol Sulfate 2.5 Mg/3 Ml Neb) 2.5 mg NEB [id number] [facility] Last Admin: 03/06/20 16:38 Dose: Not Given Documented by: Albuterol Sulfate (Albuterol 200 Puff (6.7gm Inhaler)) 2 puff INH Q4H PRN PRN Reason: SOB &/or Wheezing Apixaban (Apixaban 2.5 Mg Tab) 2.5 mg PO BID [facility] Last Admin: 03/06/20 08:21 Dose: 2.5 mg Documented by: Digoxin (Digoxin 0.25 Mg Tab) 0.25 mg PO DAILY [facility] Last Admin: 03/06/20 08:22 Dose: 0.25 mg Documented by: Dofetilide (Dofetilide 0.125 Mg Cap) 0.25 mg PO 0600,1800 [facility] Furosemide (Furosemide 40 Mg Tab) 40 mg PO DAILY-AC [facility] Last Admin: 03/06/20 08:20 Dose: 40 mg Documented by: Guaifenesin/Dextromethorphan (Guaifenesin Dm 100-10/5 Ml Udcup) 15 ml PO Q4H PRN PRN Reason: Cough Last Admin: 03/02/20 15:53 Dose: 15 ml Documented by: Diltiazem HCl 125 mg/ Sodium (Chloride) 125 mls @ 5 mls/hr IVPB INF [facility] Last Admin: 03/06/20 11:32 Dose: 125 mls Documented by: Lidocaine (Lidocaine 5% Patch) 1 patch TD 1600 [facility] Last Admin: 03/06/20 15:28 Dose: 1 patch Documented by: Lisinopril (Lisinopril 2.5 Mg Tab) 2.5 mg PO DAILY [facility] Last Admin: 03/06/20 08:22 Dose: 2.5 mg Documented by: Loratadine (Loratadine 10 Mg Tab) 10 mg PO DAILY [facility] Last Admin: 03/06/20 08:22 Dose: 10 mg Documented by: Metoprolol Succinate (Metoprolol Succinate Xl 25 Mg Tab) 12.5 mg PO BID [facility] Last Admin: 03/06/20 08:23 Dose: 12.5 mg Documented by: Miscellaneous Medication (Lidocaine Patch Removal 1 Each) 1 each TOP 0400 [facility] Last Admin: 03/06/20 05:13 Dose: Not Given Documented by: Miscellaneous Medication (Electrolyte Replacement Protoc 1 Each Each) 1 each FS PRN PRN PRN Reason: ELECTROYTES Nitroglycerin (Nitroglycerin 2% Ointment 1 Inch/1 Gm Packet) 1 inch TOP TIDPRN PRN PRN Reason: Chest Pain Last Admin: 03/03/20 09:01 Dose: 1 inch Documented by: Ondansetron HCl (Ondansetron Odt 4 Mg Tab) 4 mg PO Q6H PRN PRN Reason: Nausea/Vomiting Ondansetron HCl (Ondansetron Pf 4 Mg/2 Ml Vial) 4 mg IVP Q6H PRN PRN Reason: Nausea/Vomiting Pantoprazole Sodium (Pantoprazole 40 Mg Tab) 40 mg PO DAILY [facility] Last Admin: 03/06/20 08:23 Dose: 40 mg Documented by: Potassium Chloride (Potassium Chloride 20 Meq Tab) 20 meq PO QAM-[facility] Last Admin: 03/06/20 08:21 Dose: 20 meq Documented by: Prednisone (Prednisone 20 Mg Tab) 20 mg PO QAM-WM [facility] Last Admin: 03/06/20 08:21 Dose: 20 mg Documented by: Senna/Docusate Sodium (Senokot S 8.6-50 Mg Tab) 2 tab PO BIDPRN PRN PRN Reason: Constipation Last Admin: 03/04/20 08:52 Dose: 2 tab Documented by: Sodium Chloride (Flush - Normal Saline 10 Ml Syringe) 10 ml IVF Q12HR [facility] Last Admin: 03/06/20 08:23 Dose: 10 ml Documented by: Sodium Chloride (Flush - Normal Saline 10 Ml Syringe) 10 ml IVF PRN PRN PRN Reason: Saline Flush Vital Signs & Weight: Vital Signs Temp Pulse Pulse Resp BP BP BP 03/06/20 15:26 98.7 F 78 20 132/68 03/06/20 11:25 75 19 111/58 L 03/06/20 11:09 97.8 F 78 15 102/59 L 03/06/20 09:45 75 132/57 L 129/58 L 03/06/20 08:22 75 03/06/20 08:00 98.6 F 80 83 H 83/49 L 03/06/20 07:12 75 16 Pulse Ox 03/06/20 15:26 95 03/06/20 11:25 98 03/06/20 11:09 89 L 03/06/20 09:45 03/06/20 08:22 03/06/20 08:00 95 03/06/20 07:12 Weight 153 lb 12.8 oz I/O: I/O 03/05/20 03/06/20 03/07/20 06:59 06:59 06:59 Intake Total 850 1260 Output Total 775 2050 Balance 75 -790 - Quality Measures Condition: Atrial Fibrillation/Flutter (hx or current) CV meds: Eliquis: Yes - Physical Exam General: alert & oriented x3, no apparent distress, speech clear, affect appropriate HEENT: mucus membranes moist, normocephaly, EOMI Neck: supple neck, midline trachea, no JVD/HJR Cardiology: irregularly irregular. negative: tachycardia, bradycardia Lungs: decreased breath sounds Neurology: cranial nerve 2-12 intact, grossly intact, no lateralizing findings Extremities: dry, strong pulses, warm - Labs Result Diagrams: 03/06/20 04:26 03/06/20 04:26 - EKG Interpretation EKG Method: Telemetry (PAT, MAT, SR) - Assessment/Plan Assessment/Plan: 1. QT prolongation - while on Tikosyn + levaquin. Stopped both -03/06: underlying QRS 386/422 ms (without pacing); resuming prior tikosyn dose. 2. Atypical chest pain, not felt to be ischemic. 3.Asthma, chronic, stable. No definite evidence of pneumonia, now off antibiotics as in agreement with Dr. Medrano. 4. Dual chamber ICD - Increased RV pacing noted. Device interrogated and reprogrammed DDI to prevent pacing with transient atrial driven tachycardia. Once tikosyn has resumed it's rhythm stabilizing effect reprogramming may be required again. Resuming tikosyn. Needs 12 lead ECG 2-3 hrs after every tikosyn dose and avoid further QT prolonging medications. Monitor with tikosyn reloading x 2-3 days
[2020-03-06] MEDS: Dofetilide 0.125 MG CAP PO SCH (17:09)
--- NOTE | 2020-03-06 19:11 | PRG ---
DATE OF SERVICE: 03/06/2020 SUBJECTIVE: Jordy Rosa has no complaints. He is afebrile. OBJECTIVE: VITAL SIGNS: Heart rate is in the 70s, respiratory rate in the 20s, oximetry is 95% on room air and 98 on cannula, blood pressure 132/68. LUNGS: Clear. HEART: Regular rhythm. ABDOMEN: Soft. IMPRESSION: 1. Recurrent rapid atrial fibrillation leading to shortness of breath and chest discomfort. 2. Status post cardioversion for ventricular tachycardia. 3. Long history of atrial fibrillation, atrial flutter. 4. Systolic cardiomyopathy. His device was interrogated and reprogrammed to DDI to prevent pacing with an atrial tachycardia. He is back on Tikosyn. From an asthma standpoint, he is stable. I will see him as needed moving forward. Job ID: [id number]
[2020-03-07] MEDS: Albuterol Sulfate 2.5 mg/3 ml Neb NEB SCH ×4 (00:52→19:06)
[2020-03-07 04:42] LABS: Anion Gap 10 mmol/L (10-20); BUN (Urea Nitrogen) 23 mg/dL (8.4-25.7); Calc. Creatinine Clearance 80 mL/min (70-130); Calcium 8.6 mg/dL (7.8-10.44); Carbon Dioxide 32 mmol/L (23-31); Chloride 102 mmol/L (98-107); Estimated GFR-MDRD Greater than 90; Glucose 95 mg/dL (83-110); Magnesium 2.3 mg/dL (1.6-2.6); Potassium 3.6 mmol/L (3.5-5.1); Sodium 140 mmol/L (136-145)
[2020-03-07] MEDS: Dofetilide 0.125 MG CAP PO SCH ×2 (05:50→17:29)
[2020-03-07] MEDS: Lidocaine Patch Removal 1 EACH TOP SCH (05:50)
[2020-03-07] MEDS: Furosemide 40 MG TAB PO SCH (08:19)
[2020-03-07] MEDS: predniSONE 20 MG TAB PO SCH (08:19)
[2020-03-07] MEDS: Potassium Chloride 20 MEQ TAB PO SCH (08:20)
[2020-03-07] MEDS: Diltiazem 125 MG in Sodium Chloride 0.9% 100 ML IVPB SCH (08:20)
[2020-03-07] MEDS: Loratadine 10 MG TAB PO SCH (08:20)
[2020-03-07] MEDS: Digoxin 0.25 MG TAB PO SCH (08:20)
[2020-03-07] MEDS: Lisinopril 2.5 MG TAB PO SCH (08:20)
[2020-03-07] MEDS: Apixaban 2.5 MG TAB PO SCH ×2 (08:20→21:02)
[2020-03-07] MEDS ORDERED: Diltiazem 125 MG in Sodium Chloride 0.9% 100 ML IVPB SCH (10:28)
--- NOTE | 2020-03-07 11:49 | PDOC.HOSPP ---
- Subjective Encounter Date: 03/07/20 Encounter Time: 11:00 Subjective: F/u: afib, aflutter, ICD shock The patient is doing well. He states his shortness of breath is probably the best its ever going to get. He denies palpitations or chest pain . Does not have any ICD shocks He is still on diltiazem drip at 5 with plan to wean off - Objective Vital Signs & Weight: Vital Signs (12 hours) Temp Pulse Resp BP BP Pulse Ox 03/07/20 11:44 98.5 F 75 20 94/50 L 97 03/07/20 08:20 94 L 03/07/20 07:57 87 18 03/07/20 07:30 97.6 F 79 20 111/56 L 94 L 03/07/20 04:00 98.4 F 63 31 H 101/51 L 98 03/07/20 00:52 84 16 98 03/07/20 00:46 100 03/07/20 00:00 146/65 H Weight Weight 152 lb 1.6 oz Most Recent Monitor Data Heart Rate from ECG 97 NIBP 124/67 NIBP BP-Mean 86 Respiration from ECG 14 SpO2 98 I&O: 03/06/20 03/07/20 03/08/20 06:59 06:59 06:59 Intake Total 1260 988 Output Total 2050 1200 Balance -790 -212 Result Diagrams: 03/06/20 04:26 03/07/20 04:03 Hospitalist ROS - Review of Systems Constitutional: denies: fever, chills - Medication Medications: Active Medications Generic Name Dose Route Start Last Admin Trade Name Luis Alfredoq PRN Reason Stop Dose Admin Acetaminophen 650 mg 02/29/20 18:00 03/05/20 01:09 Acetaminophen 325 Mg Tab PO 650 mg Q4H PRN Administration Headache/Fever/Mild Pain (1-3) Albuterol Sulfate 2.5 mg 02/29/20 19:00 03/07/20 07:57 Albuterol Sulfate 2.5 Mg/3 Ml Neb NEB 2.5 mg [id number] TAHIRA Administration Apixaban 2.5 mg 02/29/20 21:00 03/07/20 08:20 Apixaban 2.5 Mg Tab PO 2.5 mg BID TAHIRA Administration Digoxin 0.25 mg 03/02/20 09:00 03/07/20 08:20 Digoxin 0.25 Mg Tab PO 0.25 mg DAILY TAHIRA Administration Dofetilide 0.25 mg 03/06/20 18:00 03/07/20 05:50 Dofetilide 0.125 Mg Cap PO 0.25 mg 0600,1800 TAHIRA Administration Furosemide 40 mg 03/05/20 07:30 03/07/20 08:19 Furosemide 40 Mg Tab PO 40 mg DAILY-AC TAHIRA Administration Guaifenesin/Dextromethorphan 15 ml 02/29/20 18:00 03/02/20 15:53 Guaifenesin Dm 100-10/5 Ml Udcup PO 15 ml Q4H PRN Administration Cough Lidocaine 1 patch 03/02/20 16:00 03/06/20 15:28 Lidocaine 5% Patch TD 1 patch 1600 TAHIRA Administration Lisinopril 2.5 mg 03/01/20 09:00 03/07/20 08:20 Lisinopril 2.5 Mg Tab PO 2.5 mg DAILY TAHIRA Administration Loratadine 10 mg 03/01/20 09:00 03/07/20 08:20 Loratadine 10 Mg Tab PO 10 mg DAILY TAHIRA Administration Metoprolol Succinate 12.5 mg 03/01/20 21:00 03/07/20 08:19 Metoprolol Succinate Xl 25 Mg Tab PO 12.5 mg BID TAHIRA Administration Miscellaneous Medication 1 each 03/03/20 04:00 03/07/20 05:50 Lidocaine Patch Removal 1 Each TOP 1 each 0400 TAHIRA Administration Nitroglycerin 1 inch 02/29/20 18:04 03/03/20 09:01 Nitroglycerin 2% Ointment 1 Inch/1 Gm Packet TOP 1 inch TIDPRN PRN Administration Chest Pain Pantoprazole Sodium 40 mg 03/01/20 09:00 03/07/20 08:19 Pantoprazole 40 Mg Tab PO 40 mg DAILY TAHIRA Administration Potassium Chloride 20 meq 03/01/20 08:00 03/07/20 08:20 Potassium Chloride 20 Meq Tab PO 20 meq QAM-WM TAHIRA Administration Prednisone 20 mg 03/05/20 08:00 03/07/20 08:19 Prednisone 20 Mg Tab PO 20 mg QAM-WM TAHIRA Administration Senna/Docusate Sodium 2 tab 02/29/20 18:00 03/04/20 08:52 Senokot S 8.6-50 Mg Tab PO 2 tab BIDPRN PRN Administration Constipation Sodium Chloride 10 ml 03/02/20 09:00 03/07/20 08:30 Flush - Normal Saline 10 Ml Syringe IVF Not Given Q12HR TAHIRA - Exam General Appearance: NAD, awake alert Eye: PERRL, anicteric sclera ENT: normocephalic atraumatic, no oropharyngeal lesions Neck: no JVD Heart: no murmur, no gallops, no rubs, irregular Respiratory: CTAB, no wheezes, no rales, no ronchi Gastrointestinal: soft, non-tender, non-distended, normal bowel sounds Extremities: no cyanosis, no clubbing, no edema Skin: normal turgor, no lesions, no rashes Musculoskeletal - other findings: severe kyphoscoliosis Psychiatric: normal affect, normal behavior, A&O x 3 Hosp A/P - Plan ChesT x ray: worsening bilateral lower lobe airspace disease may reflect aspiration or pneumonia. Stable moderate to prominent cardiomegaly. Severe thoracolumbar scoliosis This is a 79 year old male with past medical history of COPD and chronic respiratory failure who presented with shortness of breath. Originally there was concern for STEMI, but was admitted for possible NSTEMi .There were no concerns for NSTEMI, but possible concern for pneumonia. The patient received levaquin for three days. He then developed Vtach and atrial flutter. Levaquin was disco ntinued due to low suspicion of pneumonia. He has been reloaded with tikosyn and monitoring for any episodes of QT prolongation History of atrial flutter s/p ablation Vtach - patient had episode of SVT and V tach 03/04. EP was consulted, tikosyn and levaquin were discontinued and device was reprogrammed DDI to prevent pacing with atrial drive tachycardia. Tikosyn was resumed 03/06 when QTC improved to 422. -Continue tikosyn - repeat EKG tomorrow - wean off diltiazem drip. Continue metoprolol 12.5 mg bid, titrate up if still high Chronic respiratory failure - possibly secondary to pneumonia with underlying asthma - chest X ray showed worsening bilateral lower lobe airspace disease. Received three days of levaquin and then discontinued due to vtach - he is back to his baseline oxygen requirement . Will repeat chest Xray to see if it has improved Elevated troponin - patient denies chest pain. Troponin peaked at 0.073 - cardiology was consulted, did not feel patient needs to go to the director of cath lab Anemia - Hb 13.9, will monitor
--- NOTE | 2020-03-07 12:30 | RAD ---
Chest one view HISTORY: Pneumonia. Follow-up. COMPARISON: 02/29/2020. FINDINGS: Cardiac silhouette remains magnified, enlarged, and partially obscured by dense bilateral a irspace disease that appears worse on the right than on the prior study. Left basilar infiltrate is favored to be stable. Mediastinum remains midline. Left lung relatively hypoinflated. Dual lead left subclavian cardiac electronic device remains in place. No evidence of pneumothorax. Chronic deformities of the chest wall again demonstrated. IMPRESSION : Continued worsening in radiographic appearance of the right lower lobe infiltrate. Left lower lobe in filtrate favored to be stable. Cardiomegaly and other chronic findings are stable.
--- NOTE | 2020-03-07 14:19 | PDOC.EP ---
- Subjective Date: 03/07/20 Time: 14:18 Interval History: No new symptoms. Continue to be stable. - Review of Systems Constitutional: denies: chills, fever, malaise, sweats, weakness, other Respiratory: denies: cough, dry, hemoptysis, pleuritic pain, shortness of breath, SOB with excertion, sputum, wheezing, other Cardiology: denies: chest pain, edema, heart racing, light headedness, paroxysmal noc. dyspnea, orthopnea, palpitations, passing out, pleuritic pain, pressure, swelling, other Gastrointestinal: denies: abdominal pain, constipation, diarrhea, hematochezia, melena, nausea, vomitting, other Musculoskeletal: denies: unstable gait, falls, neck pain, shoulder pain, arm pain, hand pain, leg pain, foot pain, other - Objective Allergies/Adverse Reactions: Allergies Allergy/AdvReac Type Severity Reaction Status Date / Time ibuprofen [From Motrin] Allergy Verified 01/30/19 15:13 Current Medications Acetaminophen (Acetaminophen 325 Mg Tab) 650 mg PO Q4H PRN PRN Reason: Headache/Fever/Mild Pain (1-3) Last Admin: 03/05/20 01:09 Dose: 650 mg Documented by: Acetaminophen (Acetaminophen 650 Mg Suppository) 650 mg [place] Q4H PRN PRN Reason: Headache/Fever/Mild Pain (1-3) Albuterol Sulfate (Albuterol Sulfate 2.5 Mg/3 Ml Neb) 2.5 mg NEB [id number] [facility] Last Admin: 03/07/20 13:06 Dose: 2.5 mg Documented by: Albuterol Sulfate (Albuterol 200 Puff (6.7gm Inhaler)) 2 puff INH Q4H PRN PRN Reason: SOB &/or Wheezing Apixaban (Apixaban 2.5 Mg Tab) 2.5 mg PO BID [facility] Last Admin: 03/07/20 08:20 Dose: 2.5 mg Documented by: Digoxin (Digoxin 0.25 Mg Tab) 0.25 mg PO DAILY [facility] Last Admin: 03/07/20 08:20 Dose: 0.25 mg Documented by: Dofetilide (Dofetilide 0.125 Mg Cap) 0.25 mg PO 0600,1800 [facility] Last Admin: 03/07/20 05:50 Dose: 0.25 mg Documented by: Furosemide (Furosemide 40 Mg Tab) 40 mg PO DAILY-AC [facility] Last Admin: 03/07/20 08:19 Dose: 40 mg Documented by: Guaifenesin/Dextromethorphan (Guaifenesin Dm 100-10/5 Ml Udcup) 15 ml PO Q4H PRN PRN Reason: Cough Last Admin: 03/02/20 15:53 Dose: 15 ml Documented by: Lidocaine (Lidocaine 5% Patch) 1 patch TD 1600 [facility] Last Admin: 03/06/20 15:28 Dose: 1 patch Documented by: Lisinopril (Lisinopril 2.5 Mg Tab) 2.5 mg PO DAILY [facility] Last Admin: 03/07/20 08:20 Dose: 2.5 mg Documented by: Loratadine (Loratadine 10 Mg Tab) 10 mg PO DAILY [facility] Last Admin: 03/07/20 08:20 Dose: 10 mg Documented by: Metoprolol Succinate (Metoprolol Succinate Xl 25 Mg Tab) 12.5 mg PO BID [facility] Last Admin: 03/07/20 08:19 Dose: 12.5 mg Documented by: Miscellaneous Medication (Lidocaine Patch Removal 1 Each) 1 each TOP 0400 [facility] Last Admin: 03/07/20 05:50 Dose: 1 each Documented by: Miscellaneous Medication (Electrolyte Replacement Protoc 1 Each Each) 1 each FS PRN PRN PRN Reason: ELECTROYTES Nitroglycerin (Nitroglycerin 2% Ointment 1 Inch/1 Gm Packet) 1 inch TOP TIDPRN PRN PRN Reason: Chest Pain Last Admin: 03/03/20 09:01 Dose: 1 inch Documented by: Ondansetron HCl (Ondansetron Odt 4 Mg Tab) 4 mg PO Q6H PRN PRN Reason: Nausea/Vomiting Ondansetron HCl (Ondansetron Pf 4 Mg/2 Ml Vial) 4 mg IVP Q6H PRN PRN Reason: Nausea/Vomiting Pantoprazole Sodium (Pantoprazole 40 Mg Tab) 40 mg PO DAILY [facility] Last Admin: 03/07/20 08:19 Dose: 40 mg Documented by: Potassium Chloride (Potassium Chloride 20 Meq Tab) 20 meq PO QAM-[facility] Last Admin: 03/07/20 08:20 Dose: 20 meq Documented by: Prednisone (Prednisone 20 Mg Tab) 20 mg PO QAM-WM [facility] Last Admin: 03/07/20 08:19 Dose: 20 mg Documented by: Senna/Docusate Sodium (Senokot S 8.6-50 Mg Tab) 2 tab PO BIDPRN PRN PRN Reason: Constipation Last Admin: 03/04/20 08:52 Dose: 2 tab Documented by: Sodium Chloride (Flush - Normal Saline 10 Ml Syringe) 10 ml IVF Q12HR [facility] Last Admin: 03/07/20 08:30 Dose: Not Given Documented by: Sodium Chloride (Flush - Normal Saline 10 Ml Syringe) 10 ml IVF PRN PRN PRN Reason: Saline Flush Vital Signs & Weight: Vital Signs Temp Pulse Resp BP BP Pulse Ox 03/07/20 13:06 75 16 03/07/20 11:44 98.5 F 75 20 94/50 L 97 03/07/20 08:20 94 L 03/07/20 07:57 87 18 03/07/20 07:30 97.6 F 79 20 111/56 L 94 L 03/07/20 04:00 98.4 F 63 31 H 101/51 L 98 Weight 152 lb 1.6 oz I/O: I/O 03/06/20 03/07/20 03/08/20 06:59 06:59 06:59 Intake Total 1260 988 Output Total 2050 1200 Balance -790 -212 - Quality Measures Condition: Atrial Fibrillation/Flutter (hx or current) CV meds: Eliquis: Yes - Physical Exam General: alert & oriented x3, appears well HEENT: normocephaly Neck: no JVD/HJR Cardiology: regular rate. negative: audible murmur Lungs: normal breath sounds, no wheezes, no rales Neurology: grossly intact Abdomen: active bowel sounds, non-tender, HJR negative Extremities: warm Skin: device site stable w/o swelling Musculoskeletal: no pain, other (Severe kypho-scoliosis) - Chadsvasc Risk factors Congestive heart failure: 1 Hypertension: 1 Age >75: 2 Vascular disease: 1 Risk Score: 5 - Labs Result Diagrams: 03/06/20 04:26 03/07/20 04:03 - EKG Interpretation EKG shows: Sinus rhythm, other (Occ PAT and rare NS-VT) - Device Device: dual Device Result: [employer] - Assessment/Plan Assessment/Plan: 1. QT prolongation - while on Tikosyn + levaquin. Initially held both. Now resumed tikosyn. -03/06: underlying QRS 386/422 ms (without pacing); resuming prior tikosyn dose. 2. Atypical chest pain, not felt to be ischemic. 3.Asthma, chronic, stable. No definite evidence of pneumonia, now off antibiotics as in agreement with Dr. Medrano. 4. Dual chamber ICD - Increased RV pacing noted. Device interrogated and reprogrammed DDI to prevent pacing with transient atrial driven tachycardia. Once tikosyn has re sumed it's rhythm stabilizing effect reprogramming may be required again. 03/07/20 Resumed tikosyn yesterday., So far No sign QT prolongation on rep[eated 12 lead ECG 2-3 hrs after every tikosyn dose. Avoid further QT prolonging medications. Monitor with tikosyn reloading x 2-3 days. Home tomor row am if QT remains stable.
[2020-03-07] MEDS: Lidocaine 5% Patch TD SCH (17:02)
[2020-03-07] MEDS: Senokot S 8.6-50 MG TAB PO PRN (17:34)
[2020-03-08] MEDS: Albuterol Sulfate 2.5 mg/3 ml Neb NEB SCH ×2 (00:38→07:37)
[2020-03-08] MEDS ORDERED: Melatonin 3 MG TAB PO PRN (03:48)
[2020-03-08 04:40] LABS: Hemoglobin 13.3 g/dL (14.0-18.0); Platelet Count 155 thou/uL (130-400)
[2020-03-08 04:59] LABS: Anion Gap 9 mmol/L (10-20); BUN (Urea Nitrogen) 24 mg/dL (8.4-25.7); Calc. Creatinine Clearance 77 mL/min (70-130); Calcium 8.4 mg/dL (7.8-10.44); Carbon Dioxide 35 mmol/L (23-31); Chloride 99 mmol/L (98-107); Estimated GFR-MDRD Greater than 90; Glucose 97 mg/dL (83-110); Sodium 139 mmol/L (136-145)
[2020-03-08] MEDS: Dofetilide 0.125 MG CAP PO SCH (05:10)
[2020-03-08] MEDS: Lidocaine Patch Removal 1 EACH TOP SCH (05:10)
[2020-03-08] MEDS: Lisinopril 2.5 MG TAB PO SCH (09:41)
[2020-03-08] MEDS: Potassium Chloride 20 MEQ TAB PO SCH (09:42)
[2020-03-08] MEDS: Loratadine 10 MG TAB PO SCH (09:42)
[2020-03-08] MEDS: Apixaban 2.5 MG TAB PO SCH (09:42)
[2020-03-08] MEDS: Digoxin 0.25 MG TAB PO SCH (09:42)
[2020-03-08] MEDS: predniSONE 20 MG TAB PO SCH (09:42)
[2020-03-08] MEDS: Furosemide 40 MG TAB PO SCH (09:43)
[2020-03-08 11:43] VITALS: BP 128/56; TEMP 98.3
--- NOTE | 2020-03-08 11:56 | DIS ---
DATE OF ADMISSION: 02/29/2020 DATE OF DISCHARGE: 03/08/2020 DISCHARGE DIAGNOSES: 1. Ventricular tachycardia, likely iatrogenic, improved. 2. QTc prolongation, resolved. 3. Chronic systolic congestive heart failure with ejection fraction of 30% to 35%. 4. Chronic hypoxic respiratory failure on chronic oxygen supplementation at 2 L/minute by nasal cannula. 5. Chronic obstructive pulmonary disease. 6. Chronic atrial fibrillation with variable rate on chronic anticoagulation with Eliquis. 7. Severe scoliosis. 8. 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 CONSULTATIONS: 1. Dr. Arora with Electrophysiology Service. 2. Dr. Harry with Cardiology Service. 3. Dr. Medrano with Pulmonology Service. PERTINENT LABORATORY AND X-RAY FINDINGS: Troponin I ranged between 0.064 to 0.073. CBC showed a white blood cell count ranging between 7.5 to 8.2. Digoxin level 1.27 on 03/02/2020. Portable chest x-ray dated 02/29/2020, showed bilateral lower lobe airspace disease. Severe thoracolumbar scoliosis with diffuse osteopenia. Portable chest x-ray dated 03/07/2020, showed right lower lobe infiltrate and chronic changes of bilateral lung araujo. HOSPITAL COURSE: The patient was initially admitted after presenting with increasing shortness of breath and chest pain. Initially managed with transdermal nitroglycerin and evaluated by the Cardiology Service. Cardiology did not feel that the patient's presentation was secondary to cardiac ischemia and more related to chronic lung condition and COPD. The patient with known history of nonischemic cardiomyopathy with ejection fraction in the 30% to 35% range by 2D transthoracic echocardiogram in May 2019. The patient was noted with significant arrhythmias as well as tachyarrhythmias and evaluated by the Electrophysiology Service due to ventricular tachycardia requiring ICD shocks. The patient's worsening tachyarrhythmia is likely secondarily to pulmonary disease in addition to recent exposure to Levaquin in addition to antiarrhythmics with Tikosyn. The patient underwent interrogation of his current AICD device showing normal functioning device with appropriate treatment for the arrhythmia. The patient was discontinued on Levaquin and dofetilide and monitored for QT prolongation. The patient's QT interval was improving with discontinuation of these 2 medications. At which point, the patient was resumed back on dofetilide with serial monitoring of the QT interval showing normal values. The patient did receive transient dosing with diltiazem, which was subsequently discontinued after resuming Tikosyn. The patient overall clinically stabilized with medical management and clinically stabilized in regard to respiratory status. The patient currently at baseline respiratory status with O2 requirements of 2 L/minute by nasal cannula continuously. I have examined the patient at the time of discharge and discussed followup instructions. The patient verbalized understanding and in agreement and ready for discharge on 03/08/2020. DISCHARGE MEDICATIONS: 1. Enteric-coated aspirin 81 mg p.o. daily. 2. Breo Ellipta 200/25 mcg one inhalation daily. 3. Calcium carbonate 1500 mg p.o. b.i.d. 4. Claritin 10 mg p.o. daily. 5. Diclofenac sodium 2 g topically q.i.d. p.r.n. 6. DuoNeb 3 mL nebulized q.6 hours p.r.n. 7. Eliquis 2.5 mg p.o. b.i.d. 8. Ferrous sulfate 325 mg p.o. daily. 9. Flonase 50 mcg intranasally daily. 10. Digoxin 0.25 mg p.o. daily. 11. Lasix 40 mg p.o. daily. 12. Lipitor 20 mg p.o. daily. 13. Lisinopril 2.5 mg p.o. daily. 14. MiraLAX 17 g p.o. daily p.r.n. 15. Multivitamin one tab p.o. daily. 16. Omeprazole 20 mg p.o. daily. 17. Pataday one drop to each eye b.i.d. 18. Potassium chloride 20 mEq p.o. daily. 19. Tikosyn 250 mcg p.o. b.i.d. 20. Vitamin C 500 mg p.o. daily. 21. Vitamin D3 of 5000 units p.o. daily. 22. Zinc sulfate 220 mg p.o. daily. 23. Prednisone 20 mg p.o. daily x5 days, followed by 10 mg p.o. daily. 24. Toprol-XL 12.5 mg p.o. b.i.d. FOLLOWUP: The patient may follow up with his primary care provider, Dr. Jody Chand at [facility] in [place]. The patient may follow up with Dr. Arora with Electrophysiology Service and to call his office for appointment, time, and date. CONDITION ON DISCHARGE: Fair. ACTIVITY: Ad-orlin. Rolling walker with standby assistance. DIET: Heart healthy with 1.5 L per 24-hour fluid restriction. CODE STATUS: Full. DISPOSITION: Discharged to [facility] in [facility] on 03/08/2020. TIME SPENT: Total time preparing and coordinating discharge, 38 minutes. Job ID: [id number]
--- NOTE | 2020-03-09 20:52 | EKG ---
Test Reason : Blood Pressure : / mmHG Vent. Rate : 131 BPM Atrial Rate : 068 BPM P-R Int : 000 ms QRS Dur : 114 ms QT Int : 348 ms P-R-T Axes : 000 -61 089 degrees QTc Int : 513 ms Undetermined rhythm Incomplete right bundle branch block Left anterior fascicular block Left ventricular hypertrophy with repolarization abnormality Anterior infarct , age undetermined Inferior injury pattern ACUTE MT / STEMI Consider right ventricular involvement in acute inferior infarct Abnormal ECG When compared with ECG of 29-FEB-2020 12:26, (Unconfirmed) Current undetermined rhythm precludes rhythm comparison, needs review Confirmed by Ameena FLOR ([id number]) on 03/09/2020 8:52:28 PM Referred By: Confirmed By:Ameena FLOR
--- NOTE | 2020-03-11 01:55 | EKG ---
Test Reason : Blood Pressure : / mmHG Vent. Rate : 077 BPM Atrial Rate : 077 BPM P-R Int : 132 ms QRS Dur : 186 ms QT Int : 460 ms P-R-T Axes : 097 -86 094 degrees QTc Int : 520 ms AV sequential or dual chamber electronic pacemaker When compared with ECG of 02-MAR-2020 08:53, (Unconfirmed) Previous ECG has undetermined rhythm, needs review Confirmed by MADELINE MAHARAJ MD ([id number]) on 03/11/2020 1:54:43 AM Referred By: [facility] Confirmed By:MADELINE MAHARAJ MD
--- NOTE | 2020-03-11 02:12 | EKG ---
Test Reason : Blood Pressure : / mmHG Vent. Rate : 102 BPM Atrial Rate : 102 BPM P-R Int : 192 ms QRS Dur : 172 ms QT Int : 412 ms P-R-T Axes : 082 -81 100 degrees QTc Int : 536 ms AV sequential or dual chamber electronic pacemaker Confirmed by MADELINE MAHARAJ MD ([id number]) on 03/11/2020 2:11:52 AM Referred By: [facility] Confirmed By:MADELINE MAHARAJ MD
--- NOTE | 2020-03-11 02:20 | EKG ---
Test Reason : Blood Pressure : / mmHG Vent. Rate : 083 BPM Atrial Rate : 083 BPM P-R Int : 156 ms QRS Dur : 144 ms QT Int : 418 ms P-R-T Axes : 051 -60 108 degrees QTc Int : 491 ms AV sequential or dual chamber electronic pacemaker When compared with ECG of 05-MAR-2020 07:52, (Unconfirmed) Vent. rate has decreased BY 19 BPM Confirmed by MADELINE MAHARAJ MD ([id number]) on 03/11/2020 2:20:28 AM Referred By: [facility] Confirmed By:MADELINE MAHARAJ MD
--- NOTE | 2020-03-11 06:53 | EKG ---
Test Reason : FOR QRS DURATION Blood Pressure : / mmHG Vent. Rate : 072 BPM Atrial Rate : 072 BPM P-R Int : 196 ms QRS Dur : 122 ms QT Int : 386 ms P-R-T Axes : 071 -51 110 degrees QTc Int : 422 ms Sinus rhythm with occasional Premature ventricular complexes and Premature atrial complexes Right bundle branch block Left anterior fascicular block Bifascicular block Septal infarct , age undetermined Abnormal ECG Confirmed by MADELINE MAHARAJ MD ([id number]) on 03/11/2020 6:52:52 AM Referred By: [facility] Confirmed By:MADELINE MAHARAJ MD
--- NOTE | 2020-03-11 06:56 | EKG ---
Test Reason : Blood Pressure : / mmHG Vent. Rate : 079 BPM Atrial Rate : 079 BPM P-R Int : 000 ms QRS Dur : 130 ms QT Int : 420 ms P-R-T Axes : 000 -54 110 degrees QTc Int : 481 ms Demand pacemaker; interpretation is based on intrinsic rhythm Undetermined rhythm Right bundle branch block Left anterior fascicular block Bifascicular block Left ventricular hypertrophy with repolarization abnormality Anteroseptal infarct (cited on or before 06-MAR-2020) Abnormal ECG When compared with ECG of 06-MAR-2020 09:35, (Unconfirmed) Current undetermined rhythm precludes rhythm comparison, needs review Serial changes of Anteroseptal infarct Present Confirmed by NICKO PERKINS, MADELINE ([id number]) on 03/11/2020 6:56:12 AM Referred By: [facility] Confirmed By:MADELINE MAHARAJ MD
--- NOTE | 2020-03-11 06:56 | EKG ---
Test Reason : TIMED Blood Pressure : / mmHG Vent. Rate : 075 BPM Atrial Rate : 075 BPM P-R Int : 180 ms QRS Dur : 112 ms QT Int : 348 ms P-R-T Axes : 091 -46 160 degrees QTc Int : 388 ms Sinus rhythm with Premature ventricular complexes or Fusion complexes Incomplete right bundle branch block Left anterior fascicular block Left ventricular hypertrophy with repolarization abnormality Anteroseptal infarct (cited on or before 06-MAR-2020) Abnormal ECG Confirmed by MADELINE MAHARAJ MD ([id number]) on 03/11/2020 6:55:49 AM Referred By: Confirmed By:MADELINE MAHARAJ MD
--- NOTE | 2020-03-11 23:04 | PQF ---
CLINICAL DOCUMENTATION CLARIFICATION FORM: Dear : ROSENDO PETERSEN DO Date / Time: 03/11/2020 Please exercise your independent, professional judgment in responding to the clarification form. Clinical indicators are provided on the bottom of this form for your review Please check appropriate box(es): Conflicting documentation was noted in the Medical Record; please clarify if patient is being treated/monitored for: [ ] Acute hypoxic respiratory failure [ ] Acute on chronic respiratory failure with hypoxia [ x ] Chronic hypoxic respiratory failure [ ] Other diagnosis (Please specify if any) [ ] Unable to determine In addition, please specify: Present on Admission (POA): [ x ] Yes [ ] No [ ] Unable to determine Physician Signature: Date/Time: For continuity of documentation, please document condition throughout progress notes and discharge summary. Thank You. To be completed by CDI/Coding staff for physician review: Present Clinical Indicators - Signs / Symptoms / Labs Results and Location in Medical Record [x] Discharge diagnosis: Chronic hypoxic respiratory failure on chronic oxygen supplementation at 2L/min by nasal cannula Discharge summary on 03/08 [x] Acute on chronic respiratory failure with hypoxia due to scoliosis and COPD H&P on 02/28 [x] Chronic hypoxic respiratory failure-possibly secondary to pneumonia wih underlying asthma Hospitalist PN on 03/03 [x] Acute hypoxic respiratory failure-possibly secondary to pneumonia Hospitalist PN on 03/01 Present Risk Factors Results and Location in Medical Record [x] COPD H&P on 02/28 [ ] [ ] Present Treatments Results and Location in Medical Record [x] Albuterol sulfate 2.5 mg Medication from 02/28 to 03/08 [x] O2 flow rate -3 L/min Oxygen on 02/28 [ ] CDS/Cellar Hand Signature: AAS Phone #: Date/Time: 03/11/2020 This is a permanent part of the Medical Record [facility]
--- NOTE | 2020-03-12 06:59 | EKG ---
Test Reason : Blood Pressure : / mmHG Vent. Rate : 110 BPM Atrial Rate : 040 BPM P-R Int : 000 ms QRS Dur : 110 ms QT Int : 350 ms P-R-T Axes : 000 -42 134 degrees QTc Int : 473 ms Atrial fibrillation with rapid ventricular response with premature ventricular or aberrantly conducte d complexes Left axis deviation Incomplete right bundle branch block Septal infarct (cited on or before 06-MAR-2020) Marked ST abnormality, possible anterolateral subendocardial injury Abnormal ECG Confirmed by MADELINE MAHARAJ MD ([id number]) on 03/12/2020 6:58:48 AM Referred By: [facility] Confirmed By:MADELINE MAHARAJ MD
--- NOTE | 2020-03-14 11:37 | PQF ---
CLINICAL DOCUMENTATION CLARIFICATION FORM: Dear : Philip Cortes MD Date / Time: 03/14/2020 Please exercise your independent, professional judgment in responding to the clarification form. Clinical indicators are provided on the bottom of this form for your review Please check appropriate box(es): AMI TYPE: [ ] Type 1 WV (STEMI) (please also specify site and artery see below) SITE: [ ] Anterior [ ] Apical [ ] Lateral [ ] Inferior [ ] Posterior [ ] Q Wave [ ] Septal [ ] Unable to Determine SPECIFIC ARTERY (Based on site) [ ] Left Main Coronary [ ] Diagonal [ ] Left Anterior Descending [ ] Oblique Marginal [ ] Right Coronary Artery [ ] Left Circumflex [ ] Unable to Determine [ ] Type 1 WV (NSTEMI) [ x ] Type 2 WV (T2MI) secondary to: [ x ] hypertension [ ] arrhythmia [ ] Infection [ ] severe anemia [ ] ischemic stroke [ ] renal failure [ ] heart failure [ ] other [ ] Type 3 WV (sudden without cardiac biomarker and/or with evidence of WV by autopsy) [ ] Type 4-5 WV (WV with PCI/PCI stent thrombosis, PCI re-stenosis or CABG related WV) [ ] Myocardial Infarction with no obstructive coronary atherosclerosis (MINOCA) (MINOCA is a classification independent from the UDMI and includes patients with Type I & Type 2 WV) [ ] Acute non-ischemic myocardial injury in the absence of WV [ ] Unstable Angina [ ] ACS [ ] Other: [ ] Takotsubo syndrome [ ] Other diagnosis (Please specify if any) [ ] Unable to determine In addition, please specify: Present on Admission (POA): [ x ] Yes [ ] No [ ] Unable to determine Physician Signature: Date/Time: For continuity of documentation, please document condition throughout progress notes and discharge summary. Thank You. To be completed by CDI/Coding staff for physician review: Present Clinical Indicators - Signs / Symptoms / Labs Results and Location in Medical Record [x] Elevated biomarkers (CK-MB, Troponin T or I) Troponin -0.073 Laboratory on 02/28 [x] Initial EMS EKG with anterolateral depressions and isolated ST elevation in III, ED provider report on 02/28 [x] Suspect patient is unstable angina V crescendo angina; found to have slight elevation in trop and CK. So technically NSTEMI ED provider report on 02/28 [x] Chest pain on arrival had resolved after nitropaste and sprays and ASA ED provider report on 02/28 [x] He was originally a STEMI alert ED provider report on 02/28 [x] He is being admitted to the hospital with a non-ST elevation WV H&P on 02/28 [x] Originally there was concern for STEMI, but was admitted for possible NSTEMI Hospitalist PN on 03/01 to 03/06 [x] Originally there was concern for STEMI, but was admitted for possible NSTEMI, there was no concerns for NSTEMI Hospitalist PN on 03/07 [x] I certainly do not feel this is a STEMI and do not feel that he needs to go to the cardiac cath cab Consult on 03/01 Present Risk Factors Results and Location in Medical Record [x] Hypertension H&P on 02/28 [ ] History of Coronary Artery Disease [ ] High Cholesterol/Lipids [ ] History of Diabetes [ ] History of WV Present Treatments Results and Location in Medical Record [ ] Heart cath / percutaneous intervention [ ] Anticoagulation / TPA [x] Nitroglycerin Medication from 02/28 to 03/08 [ ] Oxygen [ ] Vasodilators [ ] Continuous cardiac monitoring [x] Cardiac consult Consult on 03/01 CDS/Airplane Patrol Pilot Signature: AAS Phone #: Date/Time: 03/14/2020 This is a permanent part of the Medical Record [facility]
== END 2020-03-08 13:20 | disposition home or self-care (01) | DRG 281 ==
LOC: ERS 11:28 → ERHOLD 13:40 → IMCU/EMU 17:26 → 2NO 03-05 00:59
PROVIDERS: ADMIT Internal Medicine; ATTEND Internal Medicine
DX: I47.2 Ventricular tachycardia (principal); I21.A1 Myocardial infarction type 2; I50.22 Chronic systolic (congestive) heart failure; I42.8 Other cardiomyopathies; J96.11 Chronic respiratory failure with hypoxia; I48.20 Chronic atrial fibrillation, unspecified; J44.9 Chronic obstructive pulmonary disease, unspecified; M41.9 Scoliosis, unspecified; I11.0 Hypertensive heart disease with heart failure; I27.20 Pulmonary hypertension, unspecified; I25.10 Atherosclerotic heart disease of native coronary artery without angina pectoris; E78.00 Pure hypercholesterolemia, unspecified; D53.9 Nutritional anemia, unspecified; G47.33 Obstructive sleep apnea (adult) (pediatric); Z79.82 Long term (current) use of aspirin; Z79.01 Long term (current) use of anticoagulants; Z95.810 Presence of automatic (implantable) cardiac defibrillator; Z79.899 Other long term (current) drug therapy; Z99.81 Dependence on supplemental oxygen; Z98.890 Other specified postprocedural states; Z87.891 Personal history of nicotine dependence; Z88.8 Allergy status to other drugs, medicaments and biological substances; Z20.828 Contact with and (suspected) exposure to other viral communicable diseases
CPT/HCPCS: 36415; 71045; 80048; 80053; 80162; 82550; 82553; 83690; 83735; 84484; 85014; 85018; 85025; 85027; 85049; 93005; 93010; 94150; 94640; 96374; J1956; J2920; J3490; J7512; J7611; J8499

== ENCOUNTER 2020-04-20 19:36 | Inpatient (IN) | payer MEDICARE, MEDICAID ==
[2020-04-20 20:37] LABS: #Lymphocytes 0.9 thou/uL (1.20-3.40); #Monocytes 1.1 thou/uL (0.11-0.59); #Neutrophils 6.4 thou/uL (1.40-6.50); %Basophils 0.5 % (0.0-1.0); %Eosinophils 0.3 % (0.0-10.0); %Lymphocytes 10.5 % (21.0-51.0); %Monocytes 13.5 % (0.0-10.0); %Neutrophils 75.2 % (42.0-75.0); Hemoglobin 13.2 g/dL (14.0-18.0); Mean Corpuscular HGB CONC 32.1 g/dL (32.0-36.0); Mean Corpuscular Hemoglobin 32.6 pg (27.0-31.0); Mean Platelet Volume 8.3 fL (7.4-10.4); Platelet Count 151 thou/uL (130-400); RBC Distribution Width 12.6 % (11.5-14.5); Red Blood Cell (RBC) Count 4.05 mill/uL (4.70-6.10); White Blood Cell (WBC) Count 8.5 thou/uL (4.8-10.8)
--- NOTE | 2020-04-20 20:41 | RAD ---
RADIOGRAPH CHEST 1 VIEW: DATE: 04/20/2020 TIME: 8:32 PM HISTORY: 79-year-old male with dyspnea COMPARISON: 03/07/2020 FINDINGS: Severe distortion of rib cage associated with severe dextroscoliosis of thoracic spine. There continues to be dense consolidation of retrocardiac portion of left lower lobe. Mild infiltrate s at left midlung field appears similar to prior study. Small focal airspace opacity at the right lateral lower lung zone appears slightly worse than on prio r study. Cardiomegaly. AICD with left-sided generator. IMPRESSION: 1) severe distortion of rib cage due to severe dextroscoliosis, results in limited evaluation of lung araujo. 2) small focal consolidation at right lateral lower lung zone appears worse on the current study comp ared to previous. 3) no other interval change. 4) left lower lobe consolidation and mild left mid lung zone pulmonary densities, appear unchanged.
[2020-04-20 21:01] LABS: ALT (SGPT) 17 U/L (8-55); AST (SGOT) 22 U/L (5-34); Albumin 3.1 g/dL (3.4-4.8); Alkaline Phosphatase 53 U/L (40-110); Anion Gap 13 mmol/L (10-20); BUN (Urea Nitrogen) 17 mg/dL (8.4-25.7); Bilirubin, Total 0.4 mg/dL (0.2-1.2); Calc. Creatinine Clearance 0 mL/min (70-130); Calcium 8.5 mg/dL (7.8-10.44); Carbon Dioxide 29 mmol/L (23-31); Chloride 102 mmol/L (98-107); Globulin 2.1 g/dL (2.4-3.5); Glucose 117 mg/dL (83-110); Potassium 4.4 mmol/L (3.5-5.1); Protein, Total 5.2 g/dL (5.8-8.1); Sodium 140 mmol/L (136-145)
[2020-04-20 21:29] LABS: CKMB 4.2 ng/mL (0-6.6)
[2020-04-20] MEDS ORDERED: Cefepime 2 GM VIAL ONE (23:34)
[2020-04-21] MEDS ORDERED: Acetaminophen 650 MG Suppository PR PRN (03:09)
[2020-04-21] MEDS ORDERED: Ondansetron PF 4 MG/2 ML Vial IVP PRN (03:09)
[2020-04-21] MEDS ORDERED: Guaifenesin DM 100-10/5 ML UDCUP PO PRN (03:09)
[2020-04-21] MEDS ORDERED: Acetaminophen 325 MG TAB PO PRN (03:09)
[2020-04-21] MEDS ORDERED: Calcium Carbonate 500 MG ChewTAB PO PRN (03:09)
[2020-04-21] MEDS ORDERED: Ondansetron ODT 4 MG TAB PO PRN (03:09)
--- NOTE | 2020-04-21 03:13 | PDOC.HHP ---
Hospitalist HPI - History of Present Illness dyspnea History of Present Illness: Case of an 79y/o male [place] resident with a pmhx of copd on chronic home 02, chf with an ef 30-35%, chronic atrial fibrillation, hld, htn, apparent some mild form of osteogenesis imperfecta and hx of cva who comes to hospital due to sob. Pt states he has felt SOB "for a few days" with occasional cough. Denies fever or chest pain. Dyspnea is worse with exertion. Negative COVID swab 6 days ago. patient was evaluated and the ED and dx with copd exacerbation hospitalist was called for further evaluation and management. Hospitalist ROS - Review of Systems All other systems reviewed; all pertinent +/- noted in HPI/Subj Hospitalist History - Past Surgical History Past Surgical History: reports: Hernia Repair - Family History Family History: reports: no pertinent history - Social History Smoking Status: Former smoker Alcohol: reports: None Drugs: reports: none - Exam General Appearance: NAD, awake alert Eye: PERRL, anicteric sclera ENT: normocephalic atraumatic, no oropharyngeal lesions Neck: supple, symmetric, no JVD Heart: RRR, no murmur, no gallops Respiratory - other findings: b/l decreased lung sounds Gastrointestinal: soft, non-tender, non-distended, normal bowel sounds Extremities: no cyanosis, no clubbing Skin: normal turgor, no lesions Neurological: cranial nerve grossly intact, normal sensation to touch Musculoskeletal: normal tone, normal strength Psychiatric: normal affect, normal behavior, A&O x 3 Hospitalist Results - Labs Result Diagrams: 04/20/20 20:04/20/20 20:27 Lab results: WBC 8.5 thou/uL (4.8-10.8) 04/20/20 20: Hgb 13.2 g/dL (14.0-18.0) L 04/20/20 20: Hct 41.2 % (42.0-52.0) L 04/20/20 20: MCV 102.0 fL (78.0-98.0) H 04/20/20 20:27 Plt Count 151 thou/uL (130-400) 04/20/20 20: Neutrophils % 75.2 % (42.0-75.0) H 04/20/20 20:27 Sodium 140 mmol/L (136-145) 04/20/20 20:27 Potassium 4.4 mmol/L (3.5-5.1) 04/20/20 20:27 Chloride 102 mmol/L (98-107) 04/20/20 20:27 Carbon Dioxide 29 mmol/L (23-31) 04/20/20 20:27 BUN 17 mg/dL (8.4-25.7) 04/20/20 20:27 Creatinine 0.81 mg/dL (0.7-1.3) 04/20/20 20:27 Glucose 117 mg/dL (83-110) H 04/20/20 20:27 Calcium 8.5 mg/dL (7.8-10.44) 04/20/20 20: Total Bilirubin 0.4 mg/dL (0.2-1.2) 04/20/20 20: AST 22 U/L (5-34) 04/20/20 20: ALT 17 U/L (8-55) 04/20/20 20:27 Alkaline Phosphatase 53 U/L (40-110) 04/20/20 20:27 CK-MB (CK-2) 4.2 ng/mL (0-6.6) 04/20/20 20: Troponin I 0.078 ng/mL (< 0.028) H 04/20/20 20:27 Serum Total Protein 5.2 g/dL (5.8-8.1) L 04/20/20 20:27 Albumin 3.1 g/dL (3.4-4.8) L 04/20/20 20:27 Hospitalist H&P A/P - Problem (1) COPD exacerbation Code(s): J44.1 - CHRONIC OBSTRUCTIVE PULMONARY DISEASE W (ACUTE) EXACERBATION Status: Acute (2) Atrial fibrillation Code(s): I48.91 - UNSPECIFIED ATRIAL FIBRILLATION Status: Acute (3) CHF (congestive heart failure) Code(s): I50.9 - HEART FAILURE, UNSPECIFIED Status: Acute (4) HTN (hypertension) Code(s): I10 - ESSENTIAL (PRIMARY) HYPERTENSION Status: Acute (5) HLD (hyperlipidemia) Code(s): E78.5 - HYPERLIPIDEMIA, UNSPECIFIED Status: Acute - Plan Plan: Case of an 79y/o male with the stated pmhx who presents with copd exacerbation copd exacerbation - 02 supplementation - iv steroids - iv azithromycin - duo nebs - recently tested negative for covid 19 - cxr possible new infiltrate on RLL atrial fibrillation - in adequate VR - continue AC with elliquis - continue digoxin - continue bb for rate control hld / hld / chf / cva - continue home meds
[2020-04-21] MEDS ORDERED: Bacteriostatic Water 30 ML VIAL FS PRN (03:30)
[2020-04-21] MEDS ORDERED: Azithromycin 500 MG in Sodium Chloride 0.9% 250 ML 250 ML IVPB SCH (04:00)
[2020-04-21] MEDS ORDERED: HYDROcodone/Acetaminophen 5/325 mg Tablet PO SCH (05:30)
[2020-04-21 05:32] LABS: ALT (SGPT) 20 U/L (8-55); AST (SGOT) 25 U/L (5-34); Albumin 3.2 g/dL (3.4-4.8); Alkaline Phosphatase 50 U/L (40-110); Anion Gap 13 mmol/L (10-20); BUN (Urea Nitrogen) 16 mg/dL (8.4-25.7); Bilirubin, Total 0.7 mg/dL (0.2-1.2); Calc. Creatinine Clearance 0 mL/min (70-130); Calcium 8.7 mg/dL (7.8-10.44); Carbon Dioxide 28 mmol/L (23-31); Chloride 104 mmol/L (98-107); Globulin 2.1 g/dL (2.4-3.5); Glucose 86 mg/dL (83-110); Potassium 3.8 mmol/L (3.5-5.1); Protein, Total 5.3 g/dL (5.8-8.1); Sodium 141 mmol/L (136-145); Troponin I 0.127 ng/mL (< 0.028)
[2020-04-21] MEDS: methylPREDNISolone Sod Succ 40 MG VIAL IVP SCH ×3 (05:36→18:42)
[2020-04-21 05:52] LABS: Band 1 % (5-11); Eosinophils 1 % (0-10); Hemoglobin 13.1 g/dL (14.0-18.0); Lymphocytes 5 % (21-51); MDiff Complete? YES; Mean Corpuscular HGB CONC 31.4 g/dL (32.0-36.0); Mean Corpuscular Hemoglobin 31.8 pg (27.0-31.0); Mean Platelet Volume 8.8 fL (7.4-10.4); Monocytes 8 % (0-10); Neutrophil 73 % (42-75); Platelet Count 150 thou/uL (130-400); Platelet Morphology Comment Appears Adequate; RBC Distribution Width 12.7 % (11.5-14.5); Reactive Lymphocytes 12 % (0-10); Red Blood Cell (RBC) Count 4.13 mill/uL (4.70-6.10)
[2020-04-21 05:55] VITALS: BMI 26.3
[2020-04-21] MEDS: Carvedilol 3.125 MG TAB PO SCH ×2 (07:45→16:36)
[2020-04-21 09:23] LABS: Troponin I 0.128 ng/mL (< 0.028)
[2020-04-21] MEDS ORDERED: Docusate 100 MG CAP PO PRN (14:15)
[2020-04-21] MEDS ORDERED: Bisacodyl 10 MG SUPP PR PRN (14:15)
[2020-04-21] MEDS ORDERED: Polyethylene Glycol 3350 17 GM Packet PO PRN (14:15)
[2020-04-21] MEDS ORDERED: Mag-Al Plus 1200 MG/1200 MG/120 MG/30 ML UDCUP PO PRN (14:15)
[2020-04-21] MEDS ORDERED: Furosemide 40 MG/4 ML VIAL SLOW IVP SCH (14:30)
--- NOTE | 2020-04-21 14:44 | PDOC.HOSPP ---
- Subjective Encounter Date: 04/21/20 Encounter Time: 08:15 Subjective: has sob but better than yesterday no chest pain or palp - Objective Vital Signs & Weight: Vital Signs (12 hours) Temp Pulse Resp BP BP Pulse Ox 04/21/20 14:35 112 H 24 H 93 L 04/21/20 11:53 98.5 F 110 H 18 139/63 100 04/21/20 10:03 119 H 28 H 135/64 100 04/21/20 08:40 99.0 F 113 H 20 143/73 H 98 04/21/20 07:27 125 H 22 H 92 L 04/21/20 03:40 99.5 F 97 20 145/64 H 97 Weight Admit Weight 163 lb Weight 163 lb I&O: 04/20/20 04/21/20 04/22/20 06:59 06:59 06:59 Intake Total 485 Output Total 120 Balance 365 Result Diagrams: 04/21/20 04:27 04/21/20 04:27 Hospitalist ROS - Medication Medications: Active Medications Generic Name Dose Route Start Last Admin Trade Name Freq PRN Reason Stop Dose Admin Albuterol/Ipratropium 3 ml 04/21/20 07:00 04/21/20 14:35 Ipratropium/Albuterol Sulfate 3 Ml Neb NEB 3 ml [id number] TAHIRA Administration Carvedilol 3.125 mg 04/21/20 08:00 04/21/20 07:45 Carvedilol 3.125 Mg Tab PO 3.125 mg BID-WM TAHIRA Administration Methylprednisolone Sodium Succinate 40 mg 04/21/20 06:00 04/21/20 13:25 Methylprednisolone Sod Succ 40 Mg Vial IVP 40 mg Q6HR TAHIRA Administration - Exam General Appearance: awake alert Eye: PERRL, anicteric sclera ENT: no oropharyngeal lesions, moist mucosa Neck: supple, no JVD Heart: RRR, no murmur Respiratory: rales, rhonchi, wheezes Gastrointestinal: soft, non-tender, non-distended, normal bowel sounds Extremities: no cyanosis, no edema Neurological: cranial nerve grossly intact, no focal deficits Psychiatric: normal affect, A&O x 3 Hosp A/P (1) PNA (pneumonia) Code(s): J18.9 - PNEUMONIA, UNSPECIFIED ORGANISM Status: Acute Qualifiers: Pneumonia type: due to unspecified organism (2) COPD exacerbation Code(s): J44.1 - CHRONIC OBSTRUCTIVE PULMONARY DISEASE W (ACUTE) EXACERBATION Status: Acute (3) HLD (hyperlipidemia) Code(s): E78.5 - HYPERLIPIDEMIA, UNSPECIFIED Status: Chronic Qualifiers: Hyperlipidemia type: unspecified Qualified Code(s): E78.5 - Hyperlipidemia, unspecified (4) HTN (hypertension) Code(s): I10 - ESSENTIAL (PRIMARY) HYPERTENSION Status: Chronic Qualifiers: Hypertension type: essential hypertension Qualified Code(s): I10 - Essenti al (primary) hypertension (5) Acute on chronic respiratory failure Code(s): J96.20 - ACUTE AND CHR RESP FAILURE, UNSP W HYPOXIA OR HYPERCAPNIA Status: Acute Qualifiers: Respiratory failure complication: hypoxia Qualified Code(s): J96.21 - Acute and chronic respiratory failure with hypoxia (6) Anemia, normocytic normochromic Code(s): D64.9 - ANEMIA, UNSPECIFIED Status: Chronic (7) Chronic a-fib Code(s): I48.2 - CHRONIC ATRIAL FIBRILLATION * DO NOT USE * Status: Chronic (8) Kyphoscoliosis Code(s): M41.9 - SCOLIOSIS, UNSPECIFIED Status: Chronic (9) Rheumatoid arthritis Code(s): M06.9 - RHEUMATOID ARTHRITIS, UNSPECIFIED Status: Chronic Qualifiers: Rheumatoid factor presence: with rheumatoid factor Laterality: unspecified laterality - Plan is on omnicef, nebs, steroids, lasix, breo-ellipta inh continue home dose of dig, tikosyn, lisinopril, asp, lipitor and eliquis discussed code status with patient at bedside, he wants to be DNAR, POA is his daughter Ms.Sears Adan. pulm consultation watch for afib rvr with nebs and copd flare up hemostable ambulates very minimally per patient had childhood polio, kyphoscoliosis and ?osteogenisis imperfecta. Also has h/o RA with severe deformities of his fingers/multiple joints as well.
--- NOTE | 2020-04-21 16:42 | CON ---
DATE OF CONSULTATION: HISTORY OF PRESENT ILLNESS: Jordy Rosa is a 79-year-old gentleman, who sees Dr. Medrano in our office, readmitted again to the hospital with increasing shortness of breath without associated fever or chills. In the longterm, he had a coronavirus test that was negative 6 days ago. His recent discharge x-ray shows massive cardiomegaly, AICD in place and a questionable right basilar infiltrate. He is having no fever or chills. No chest pain. He can barely walk even 10 feet without getting markedly short of breath. PAST MEDICAL HISTORY: Extensive kyphoscoliosis; chronic asthma, COPD, chronic oxygen intake, apparently previous nocturnal respirator at home; post-polio syndrome. PREVIOUS SURGERIES: Included hernia repair, right arm surgery, AICD. SOCIAL HISTORY: No alcohol abuse. Former smoker, quit 20 years ago. ALLERGIES: IBUPROFEN. HOME MEDICATIONS: Includes 1. B complex. 2. Melatonin. 3. Nebulizer. 4. Aspirin. 5. Eliquis 2.5. 6. Tikosyn 250 twice a day. 7. Digoxin 250. 8. Toprol-XL 12.5. 9. Breo 200/25. 10. Prednisone 10 a day. He is now started on nebulizers, steroids. REVIEW OF SYSTEMS: Ten-point negative. PHYSICAL EXAMINATION: Markedly bilateral chest kyphoscoliosis, in mild distress. He has low-flow O2. Able to verbalize. EXTREMITIES: Trace edema. Saturations are 95%, supplemental oxygen; blood pressure 130/80. CHEST: Decreased breath sounds. No wheezing. CARDIAC: Normal S1, S2. No gallops. ABDOMEN: Massive. NEUROLOGIC: He is awake, alert, and responsive. LABORATORY DATA: His chest x-ray shows massive cardiomegaly, a questionable right-sided infiltrate. White count 10,000, H and H , platelet count 150. Creatinine is normal. Lytes are normal. Liver function normal. His repeat swab was done. BNP 741. IMPRESSION: Respiratory failure, congestive heart failure, chronic obstructive pulmonary disease, kyphoscoliosis, severe deconditioning. He was told to get his nocturnal ventilator, otherwise he is on adequate medication. We will notify Dr. Medrano in the morning. He is a DNR. Consultation note, 70 minutes, 50 minutes patient care. Job ID: [id number]
[2020-04-21 18:05] LABS: SARS-CoV-2 MS2 Positive; SARS-CoV-2 N Gene Negative; SARS-CoV-2 S Gene Negative; SARS-CoV-2 by NAA Not Detected (NotDetected); SARS-CoV-2 orf1ab Negative
[2020-04-21] MEDS: Mometasone 200 MCG/Formoterol 5 MCG 120 PUFF INHALER INH SCH (18:40)
--- NOTE | 2020-04-21 21:22 | PDOC.EVN ---
Event Note - Event Note Event Note: Notified by RN, patient converted from NSR to afib (HR 120s) while on the toilet 15 min ago. He is due for Coreg. Patient asymptomatic. Current BP unknown. I have requested EKG and BP check prior to giving evening dose of Coreg.
[2020-04-21] MEDS: Ketotifen Fumarate 0.025% Ophth Soln 5 ml Bottle EA EYE SCH (21:45)
[2020-04-21] MEDS: Melatonin 3 MG TAB PO SCH (21:45)
[2020-04-21] MEDS: Acetaminophen 325 MG TAB PO SCH (21:46)
[2020-04-21] MEDS: Calcium Carbonate 600 MG + Vit D TAB PO SCH (21:46)
[2020-04-21] MEDS: Dofetilide 0.125 MG CAP PO SCH (21:47)
[2020-04-21] MEDS: Apixaban 2.5 MG TAB PO SCH (21:47)
[2020-04-21] MEDS: traMADol HCl 50 MG TAB PO SCH (21:47)
[2020-04-21] MEDS: Cefdinir 300 MG CAP PO SCH (21:47)
[2020-04-22] MEDS: methylPREDNISolone Sod Succ 40 MG VIAL IVP SCH ×6 (02:18→20:20)
[2020-04-22] MEDS: Diclofenac 1% 100 GM GEL TP SCH ×6 (02:31→20:21)
[2020-04-22] MEDS: Mometasone 200 MCG/Formoterol 5 MCG 120 PUFF INHALER INH SCH ×2 (06:54→19:18)
[2020-04-22] MEDS ORDERED: Zinc Sulfate 220 MG CAP PO SCH (09:00)
[2020-04-22] MEDS: Atorvastatin Calcium 20 MG TAB PO SCH (10:36)
[2020-04-22] MEDS: Lisinopril 2.5 MG TAB PO SCH (10:36)
[2020-04-22] MEDS: Cefdinir 300 MG CAP PO SCH ×2 (10:36→20:20)
[2020-04-22] MEDS: Potassium Chloride 20 MEQ TAB PO SCH (10:36)
[2020-04-22] MEDS: Furosemide 40 MG TAB PO SCH (10:37)
[2020-04-22] MEDS: Dofetilide 0.125 MG CAP PO SCH ×2 (10:37→20:20)
[2020-04-22] MEDS: Apixaban 2.5 MG TAB PO SCH (10:37)
[2020-04-22] MEDS: Digoxin 0.25 MG TAB PO SCH (10:37)
[2020-04-22] MEDS: traMADol HCl 50 MG TAB PO SCH ×3 (10:37→20:19)
[2020-04-22] MEDS: Carvedilol 3.125 MG TAB PO SCH ×2 (10:37→17:39)
[2020-04-22] MEDS: Aspirin 81 mg Enteric Coated Tablet PO SCH (10:39)
[2020-04-22] MEDS: Acetaminophen 325 MG TAB PO SCH ×3 (10:47→20:19)
[2020-04-22] MEDS: Ketotifen Fumarate 0.025% Ophth Soln 5 ml Bottle EA EYE SCH ×2 (10:48→20:18)
[2020-04-22] MEDS: Ascorbic Acid 500 mg Chewable Tablet PO SCH (10:48)
[2020-04-22] MEDS: Calcium Carbonate 600 MG + Vit D TAB PO SCH ×2 (10:48→20:20)
[2020-04-22] MEDS: Loratadine 10 MG TAB PO SCH (10:48)
[2020-04-22] MEDS: ' PO SCH (10:49)
[2020-04-22] MEDS: Stress 600 With Zinc 1 TAB PO SCH (10:49)
--- NOTE | 2020-04-22 13:08 | CON ---
DATE OF CONSULTATION: 04/22/2020 This is an electrophysiology consultation performed in conjunction with Humphrey Garcia as the supervising physician. REASON FOR CONSULTATION: Atrial arrhythmia management. FRENCH TEACHER: Edmundo Harry MD. HISTORY OF PRESENT ILLNESS: Mr. Rosa is a 79-year-old man, well known to our service for history of recurrent atrial arrhythmias requiring Tikosyn for suppression. He was recently admitted for increasing dyspnea and was thought to go into atrial fibrillation last night, prompting EP consultation. His problems are 1. History of ventricular tachycardia with prior torsades requiring ICD shock, February 2020. 2. History of ventricular tachycardia, responsive to ATP in June 2019. 3. Recurrent atrial arrhythmias. a. Typical atrial flutter, status post CTI ablation 03/11/2016. b. Paroxysmal atrial fibrillation/atrial tachycardia, responsive to Tikosyn since January 2018. 4. Chronic systolic congestive heart failure. LV EF 30% to 35% based on echo in 2017. 5. Post-polio syndrome with severe kyphoscoliosis. 6. Oral anticoagulation on Eliquis. 7. COPD. 8. Severe deconditioning. 9. Cardiomegaly. 10. Dual chamber medtronic ICD SUBJECTIVE: Mr. Rosa presented to the hospital with increasing shortness of breath, but no fever or chills. This has been a recurrent issue for him over the past 6 to 9 months that has been progressive. He had a recent COVID test that was negative 6 days ago and repeated again today. He has a history of chronic asthma and COPD in addition to atrial arrhythmias and extensive cardiomegaly on chest x-ray. He reports his breathing has improved since coming to the hospital and he is no longer markedly short of breath. He is resting comfortably, breathing easy, resting completely flat in bed at the time of the exam. REVIEW OF SYSTEMS: Positive for shortness of breath, dyspnea on exertion, weakness. Otherwise, 12-point review of systems is negative. PAST MEDICAL HISTORY: As above. PAST SURGICAL HISTORY: 1. Hernia repair. 2. Right arm surgery. 3. COSTUME CUTTER ICD implant, Medtronic. SOCIAL HISTORY: Former smoker, quit 20 years ago. Denies alcohol or illicit drug use. FAMILY HISTORY: Noncontributory. ALLERGIES: IBUPROFEN. HOME MEDICATIONS: Include 1. Vitamin B. 2. Colace. 3. Vitamin D. 4. Dulcolax. 5. Melatonin. 6. DuoNeb. 7. Ventolin p.r.n. 8. Aspirin 81 mg daily. 9. Vitamin C. 10. Eliquis 2.5 mg b.i.d. 11. Diclofenac gel. 12. Lipitor. 13. Iron. 14. Tikosyn 250 mcg b.i.d. 15. Digoxin 250 mcg q.a.m. 16. Lasix. Breo Ellipta. 1. Lisinopril. 2. Metoprolol succinate 12.5 mg b.i.d. 3. Claritin. 4. Pataday. 5. Multivitamin. 6. MiraLAX. 7. Omeprazole. 8. Potassium 20 mEq daily. 9. Prednisone. 10. Zinc. 11. Tramadol. PHYSICAL EXAMINATION: VITAL SIGNS: Temperature 97.8, pulse 105, blood pressure 119/65, respirations 21, oxygen 95% on 3 L via nasal cannula. GENERAL: The patient is alert and oriented, but very tired and fairly somnolent during the exam. He is in no apparent distress. Resting completely flat in the bed at the time the exam and in no distress. Heart rate is once again regular. Has a left-sided precordial device. The site is without reaction. His body is severely deformed from his post-polio syndrome with kyphoscoliosis. LUNGS: Sounds are diminished with expiratory wheezes throughout. ABDOMEN: Soft, nontender. EXTREMITIES: Warm, dry to touch without clubbing or cyanosis. NEUROLOGIC: Grossly intact and nonfocal. Gait was not assessed. Telemetry and EKG currently show sinus tachycardia at a rate of 115 beats per minute with occasional PVCs. QRS is 110 milliseconds and incomplete right bundle branch block. QTc is 456 milliseconds, QT is 330 milliseconds. Telemetry tracings do show increase in paroxysmal atrial tachycardia activity over the night, which has settled down. He remains on Tikosyn. IMPRESSION: 1. Progressive dyspnea. 2. Respiratory failure. 3. Chronic obstructive pulmonary disease. 4. Recurrent atrial arrhythmias. 5. Medtronic ICD pending interrogation. RECOMMENDATIONS: Mr. Rosa once again returns with increasing dyspnea and shortness of breath. He is being followed by Pulmonology. He was seen to have an increase in activity in his atrial arrhythmia. This morning his rhythm status has stabilized and he is in sinus rhythm/sinus tachycardia. His QT/QTc is stable on his current dose of Tikosyn. I would recommend continuing Tikosyn for now. Given his pulmonary disease and heart failure, there are no other medication options for suppression of his arrhythmias. If rate control cannot be achieved, AV mansoor ablation could be considered. I have requested a [facility] transmission from his ICD to better assess his recent arrhythmia control. I would recommend avoiding QT prolonging medications and agents if antibiotics are started. In the past, we have seen QT prolongation with his ongoing Tikosyn when he was placed on Levaquin. His kidney function, while previously elevated, has corrected. He will require Eliquis 5 mg b.i.d. for OAC. With the recent improvement in his kidney function, increasing his Tikosyn could be an option versus AV node ablation. Thank you for allowing us to participate in the care of this patient. Job ID: [id number] [facility]
[2020-04-22] MEDS: Ferrous Sulfate 325 MG TAB PO SCH (15:05)
[2020-04-22 15:27] LABS: #Lymphocytes 0.6 thou/uL (1.20-3.40); #Monocytes 0.7 thou/uL (0.11-0.59); #Neutrophils 6.2 thou/uL (1.40-6.50); %Eosinophils 0.1 % (0.0-10.0); %Monocytes 9.4 % (0.0-10.0); %Neutrophils 82.5 % (42.0-75.0); Hemoglobin 14.5 g/dL (14.0-18.0); Mean Corpuscular Hemoglobin 32.1 pg (27.0-31.0); Mean Platelet Volume 8.4 fL (7.4-10.4); Platelet Count 193 thou/uL (130-400); RBC Distribution Width 12.7 % (11.5-14.5); Red Blood Cell (RBC) Count 4.52 mill/uL (4.70-6.10); White Blood Cell (WBC) Count 7.5 thou/uL (4.8-10.8)
--- NOTE | 2020-04-22 15:28 | PDOC.HOSPP ---
- Subjective Encounter Date: 04/22/20 Encounter Time: 09:00 Subjective: sob is better no palpitations or chest pain - Objective Vital Signs & Weight: Vital Signs (12 hours) Temp Pulse Resp BP Pulse Ox 04/22/20 11:42 97.9 F 115 H 12 125/70 98 04/22/20 08:50 97.8 F 105 H 21 H 119/65 95 04/22/20 06:54 99 22 H 93 L 04/22/20 04:00 97.3 F L 107 H 20 127/61 92 L Weight Admit Weight 163 lb Weight 163 lb I&O: 04/21/20 04/22/20 04/23/20 06:59 06:59 06:59 Intake Total 485 240 Output Total 120 Balance 365 240 Result Diagrams: 04/22/20 15:04 04/21/20 04:27 Hospitalist ROS - Medication Medications: Active Medications Generic Name Dose Route Start Last Admin Trade Name Freq PRN Reason Stop Dose Admin Acetaminophen 650 mg 04/21/20 21:00 04/22/20 15:06 Acetaminophen 325 Mg Tab PO 650 mg TID TAHIRA Administration Albuterol/Ipratropium 3 ml 04/22/20 15:00 04/22/20 14:02 Ipratropium/Albuterol Sulfate 3 Ml Neb NEB 3 ml [id number] [facility]A Administration Apixaban 2.5 mg 04/21/20 21:00 04/22/20 10:37 Apixaban 2.5 Mg Tab PO 2.5 mg BID TAHIRA Administration Ascorbic Acid 500 mg 04/22/20 09:00 04/22/20 10:48 Ascorbic Acid 500 Mg Chewable Tablet PO Not Given DAILY [facility]A Aspirin 81 mg 04/22/20 09:00 04/22/20 10:39 Aspirin 81 Mg Enteric Coated Tablet PO 81 mg DAILY [facility] Administration Atorvastatin Calcium 20 mg 04/22/20 09:00 04/22/20 10:36 Atorvastatin Calcium 20 Mg Tab PO 20 mg DAILY [facility] Administration Calcium/Vitamin D 1 tab 04/21/20 21:00 04/22/20 10:48 Calcium Carbonate 600 Mg + Vit D Tab PO Not Given BID TAHIRA Carvedilol 3.125 mg 04/21/20 08:00 04/22/20 10:37 Carvedilol 3.125 Mg Tab PO 3.125 mg BID-WM T[facility]IRA Administration Cefdinir 300 mg 04/21/20 21:00 04/22/20 10:36 Cefdinir 300 Mg Cap PO 300 mg BID [facility]A Administration Diclofenac Sodium 2 gm 04/21/20 17:00 04/22/20 13:33 Diclofenac 1% 100 Gm Gel TP Not Given QID TAHIRA Digoxin 0.25 mg 04/22/20 09:00 04/22/20 10:37 Digoxin 0.25 Mg Tab PO 0.25 mg QAM TAHIRA Administration Dofetilide 0.25 mg 04/21/20 21:00 04/22/20 10:37 Dofetilide 0.125 Mg Cap PO 0.25 mg BID [facility] Administration Ferrous Sulfate 325 mg 04/22/20 12:00 04/22/20 15:05 Ferrous Sulfate 325 Mg Tab PO 325 mg 1200 [facility]A Administration Furosemide 40 mg 04/22/20 09:00 04/22/20 10:37 Furosemide 40 Mg Tab PO 40 mg DAILY [facility] Administration Iron/Minerals/Multivitamins 1 tab 04/22/20 09:00 04/22/20 10:49 ' PO Not Given DAILY [facility] Ketotifen Fumarate 1 drop 04/21/20 21:00 04/22/20 10:48 Ketotifen Fumarate 0.025% Ophth Soln 5 Ml Bottle EA EYE Not Given BID [facility] Lisinopril 2.5 mg 04/22/20 09:00 04/22/20 10:36 Lisinopril 2.5 Mg Tab PO 2.5 mg DAILY [facility] Administration Loratadine 10 mg 04/22/20 09:00 04/22/20 10:48 Loratadine 10 Mg Tab PO Not Given DAILY [facility] Melatonin 6 mg 04/21/20 21:00 04/21/20 21:45 Melatonin 3 Mg Tab PO 6 mg HS [facility] Administration Methylprednisolone Sodium Succinate 20 mg 04/22/20 14:00 04/22/20 15:06 Methylprednisolone Sod Succ 40 Mg Vial IVP 20 mg 0200,0800,1400,2000 [facility] Administration Mometasone Furoate/Formoterol Fumar 2 puff 04/21/20 18:30 04/22/20 06:54 Mometasone 200 Mcg/Formoterol 5 Mcg 120 Puff Inhaler INH 2 puff BID-RT [facility]A Administration Multivitamins/Zinc 1 tab 04/22/20 09:00 04/22/20 10:49 Stress 600 With Zinc 1 Tab PO 1 tab DAILY [facility] Administration Pantoprazole Sodium 40 mg 04/22/20 09:00 04/22/20 10:39 Pantoprazole 40 Mg Tab PO 40 mg DAILY [facility] Administration Potassium Chloride 20 meq 04/22/20 09:00 04/22/20 10:36 Potassium Chloride 20 Meq Tab PO 20 meq DAILY [facility] Administration Tramadol HCl 100 mg 04/21/20 21:00 04/22/20 15:05 Tramadol Hcl 50 Mg Tab PO 100 mg TID [facility]IRA Administration Zinc Sulfate 100 mg 04/22/20 09:00 04/22/20 10:50 Zinc Sulfate 220 Mg Cap PO Not Given DAILY [facility] - Exam General Appearance: awake alert Eye: PERRL, anicteric sclera ENT: no oropharyngeal lesions, moist mucosa Neck: supple, no JVD Heart: no murmur, irregular Respiratory: no wheezes, rhonchi, wheezes Gastrointestinal: soft, non-tender, non-distended, normal bowel sounds Extremities: no cyanosis, no edema Neurological: cranial nerve grossly intact, no focal deficits Psychiatric: A&O x 3 Hosp A/P (1) PNA (pneumonia) Code(s): J18.9 - PNEUMONIA, UNSPECIFIED ORGANISM Status: Acute Qualifiers: Pneumonia type: due to unspecified organism (2) COPD exacerbation Code(s): J44.1 - CHRONIC OBSTRUCTIVE PULMONARY DISEASE W (ACUTE) EXACERBATION Status: Acute (3) HLD (hyperlipidemia) Code(s): E78.5 - HYPERLIPIDEMIA, UNSPECIFIED Status: Chronic Qualifiers: Hyperlipidemia type: unspecified Qualified Code(s): E78.5 - Hyperlipidemia, unspecified (4) HTN (hypertension) Code(s): I10 - ESSENTIAL (PRIMARY) HYPERTENSION Status: Chronic Qualifiers: Hypertension type: essential hypertension Qualified Code(s): I10 - Essential (primary) hypertension (5) Acute on chronic respiratory failure Code(s): J96.20 - ACUTE AND CHR RESP FAILURE, UNSP W HYPOXIA OR HYPERCAPNIA St atus: Acute Qualifiers: Respiratory failure complication: hypoxia Qualified Code(s): J96.21 - Acute and chronic respiratory failure with hypoxia (6) Anemia, normocytic normochromic Code(s): D64.9 - ANEMIA, UNSPECIFIED Status: Chronic (7) Chronic a-fib Code(s): I48.2 - CHRONIC ATRIAL FIBRILLATION * DO NOT USE * Status: Chronic (8) Kyphoscoliosis Code(s): M41.9 - SCOLIOSIS, UNSPECIFIED Status: Chronic (9) Rheumatoid arthritis Code(s): M06.9 - RHEUMATOID ARTHRITIS, UNSPECIFIED Status: Chronic Qualifiers: Rheumatoid factor presence: with rheumatoid factor Laterality: unspecified laterality - Plan is on omnicef, nebs, steroid taper, lasix, breo-ellipta inh continue home dose of dig, tikosyn, lisinopril, asp, lipitor and eliquis discussed code status with patient at bedside, he wants to be DNAR, POA is his daughter Ms.Sears Adan. appreciate pulm and electrophysiology specialist help hemostable ambulates very minimally per patient had childhood polio, kyphoscoliosis and ?osteogenisis imperfecta. Also has h/o RA with severe deformities of his fingers/multiple joints as well.
[2020-04-22 15:49] LABS: Anion Gap 14 mmol/L (10-20); BUN (Urea Nitrogen) 30 mg/dL (8.4-25.7); Calc. Creatinine Clearance 79 mL/min (70-130); Calcium 9.2 mg/dL (7.8-10.44); Carbon Dioxide 31 mmol/L (23-31); Chloride 103 mmol/L (98-107); Glucose 135 mg/dL (83-110); Potassium 4.7 mmol/L (3.5-5.1); Sodium 143 mmol/L (136-145)
--- NOTE | 2020-04-22 16:02 | PRG ---
DATE OF SERVICE: 04/22/2020 SUBJECTIVE: Jordy Rosa is in no distress. He is afebrile. OBJECTIVE: VITAL SIGNS: Heart rate is 105, respiratory rate is 21, oximetry is 95. HEAD AND NECK: Unremarkable. LUNGS: Distant, clear. HEART: Regular rhythm. ABDOMEN: Soft and nontender. EXTREMITIES: Without clubbing, cyanosis, or edema. DIAGNOSTIC STUDIES: Chest radiograph shows bilateral lower lobe infiltrates, although this is not much changed compared to a chest x-ray that was done in the past. IMPRESSION AND PLAN: 1. Asthma exacerbation. 2. Atrial fibrillation. His last admission to the intermediate care unit was associated with pulmonary edema with extremely high heart rates in the 150 to 180 range. He has been ablated in the past. He has been on Tikosyn. He also has depressed ejection fraction. I suspect a lot of his symptoms are related to deconditioning, his cardiomyopathy, and atrial fibrillation. He does not have COPD. I have followed him for asthma, but flare-ups of asthma been very frequent. Over the last few years, majority of his admissions to the hospital have been related to pulmonary edema and atrial fibrillation. I will be happy to follow the other physicians caring for him. Increase the frequency of his nebulizer treatments during the day as he does get some symptomatic relief from these. can be decreased. We can probably switch him to prednisone tomorrow. We will follow. Job ID: [id number]
--- NOTE | 2020-04-22 17:35 | EKG ---
Test Reason : CP Blood Pressure : / mmHG Vent. Rate : 115 BPM Atrial Rate : 115 BPM P-R Int : 184 ms QRS Dur : 110 ms QT Int : 330 ms P-R-T Axes : 095 -51 184 degrees QTc Int : 456 ms Sinus tachycardia with Premature supraventricular complexes and Fusion complexes Left axis deviation Incomplete right bundle branch block Anterior infarct , age undetermined Abnormal ECG Confirmed by Ameena FLOR ([id number]) on 04/22/2020 5:35:16 PM Referred By: Confirmed By:Ameena FLOR
--- NOTE | 2020-04-22 17:36 | EKG ---
Test Reason : Blood Pressure : / mmHG Vent. Rate : 102 BPM Atrial Rate : 102 BPM P-R Int : 192 ms QRS Dur : 106 ms QT Int : 348 ms P-R-T Axes : 082 -67 -30 degrees QTc Int : 453 ms Sinus tachycardia with frequent , and consecutive Premature ventricular complexes and Fusion complexe s Possible Left atrial enlargement Left axis deviation Incomplete right bundle branch block Inferior infarct , age undetermined Anteroseptal infarct , age undetermined Abnormal ECG When compared with ECG of 21-APR-2020 01:42, (Unconfirmed) Significant changes have occurred Confirmed by Ameena FLOR ([id number]) on 04/22/2020 5:35:41 PM Referred By: RAMA Confirmed By:Ameena FLOR
[2020-04-22] MEDS: Melatonin 3 MG TAB PO SCH (20:20)
[2020-04-23] MEDS: methylPREDNISolone Sod Succ 40 MG VIAL IVP SCH ×4 (03:08→20:19)
[2020-04-23 05:13] LABS: #Lymphocytes 0.6 thou/uL (1.20-3.40); #Monocytes 0.4 thou/uL (0.11-0.59); #Neutrophils 6.4 thou/uL (1.40-6.50); %Basophils 0.1 % (0.0-1.0); %Eosinophils 0.1 % (0.0-10.0); %Lymphocytes 8.2 % (21.0-51.0); %Monocytes 5.6 % (0.0-10.0); %Neutrophils 86.1 % (42.0-75.0); Hemoglobin 13.3 g/dL (14.0-18.0); Mean Corpuscular Hemoglobin 32.2 pg (27.0-31.0); Mean Platelet Volume 8.3 fL (7.4-10.4); Platelet Count 194 thou/uL (130-400); RBC Distribution Width 12.6 % (11.5-14.5); Red Blood Cell (RBC) Count 4.12 mill/uL (4.70-6.10); White Blood Cell (WBC) Count 7.4 thou/uL (4.8-10.8)
[2020-04-23 05:23] LABS: Anion Gap 12 mmol/L (10-20); BUN (Urea Nitrogen) 43 mg/dL (8.4-25.7); Calc. Creatinine Clearance 81 mL/min (70-130); Carbon Dioxide 33 mmol/L (23-31); Chloride 102 mmol/L (98-107); Glucose 149 mg/dL (83-110); Potassium 4.7 mmol/L (3.5-5.1); Sodium 142 mmol/L (136-145)
[2020-04-23] MEDS: Mometasone 200 MCG/Formoterol 5 MCG 120 PUFF INHALER INH SCH ×2 (07:14→20:03)
[2020-04-23] MEDS: Acetaminophen 325 MG TAB PO SCH ×3 (08:45→20:19)
[2020-04-23] MEDS: traMADol HCl 50 MG TAB PO SCH ×3 (08:46→20:23)
[2020-04-23] MEDS: Digoxin 0.25 MG TAB PO SCH (08:47)
[2020-04-23] MEDS: Dofetilide 0.125 MG CAP PO SCH ×2 (08:47→20:20)
[2020-04-23] MEDS: ' PO SCH (08:47)
[2020-04-23] MEDS: Cefdinir 300 MG CAP PO SCH ×2 (08:47→20:20)
[2020-04-23] MEDS: Atorvastatin Calcium 20 MG TAB PO SCH (08:50)
[2020-04-23] MEDS: Furosemide 40 MG TAB PO SCH (08:50)
[2020-04-23] MEDS: Aspirin 81 mg Enteric Coated Tablet PO SCH (08:50)
[2020-04-23] MEDS: Calcium Carbonate 600 MG + Vit D TAB PO SCH ×2 (08:50→20:35)
[2020-04-23] MEDS: Lisinopril 2.5 MG TAB PO SCH (08:50)
[2020-04-23] MEDS: Carvedilol 3.125 MG TAB PO SCH ×2 (08:51→17:33)
[2020-04-23] MEDS: Ascorbic Acid 500 mg Chewable Tablet PO SCH (08:51)
[2020-04-23] MEDS: Ketotifen Fumarate 0.025% Ophth Soln 5 ml Bottle EA EYE SCH ×2 (08:51→20:22)
[2020-04-23] MEDS: Loratadine 10 MG TAB PO SCH (08:51)
[2020-04-23] MEDS: Stress 600 With Zinc 1 TAB PO SCH (08:51)
[2020-04-23] MEDS: Potassium Chloride 20 MEQ TAB PO SCH (08:52)
[2020-04-23] MEDS: Diclofenac 1% 100 GM GEL TP SCH ×4 (12:53→20:25)
[2020-04-23] MEDS: Ferrous Sulfate 325 MG TAB PO SCH (13:03)
--- NOTE | 2020-04-23 13:37 | PDOC.HOSPP ---
- Subjective Encounter Date: 04/23/20 Encounter Time: 09:20 Subjective: breathing better, no palp or chest pain has not amb yet (does minimal ambulation prior to arrival) - Objective Vital Signs & Weight: Vital Signs (12 hours) Temp Pulse Resp BP BP Pulse Ox 04/23/20 12:00 98.1 F 87 15 132/63 96 04/23/20 10:58 89 22 H 94 L 04/23/20 08:50 101 H 111/55 L 04/23/20 08:47 101 H 04/23/20 07:45 98 F 101 H 17 111/55 L 92 L 04/23/20 07:42 92 L 04/23/20 07:13 99 20 96 04/23/20 03:07 98.2 F 75 20 118/56 L 93 L Weight Admit Weight 163 lb Weight 163 lb I&O: 04/22/20 04/23/20 04/24/20 06:59 06:59 06:59 Intake Total 240 735 Output Total 725 400 Balance 240 10 -400 Result Diagrams: 04/23/20 04:30 04/23/20 04:30 Hospitalist ROS - Medication Medications: Active Medications Generic Name Dose Route Start Last Admin Trade Name Freq PRN Reason Stop Dose Admin Acetaminophen 650 mg 04/21/20 21:00 04/23/20 08:45 Acetaminophen 325 Mg Tab PO 650 mg TID TAHIRA Administration Albuterol/Ipratropium 3 ml 04/22/20 15:00 04/23/20 10:58 Ipratropium/Albuterol Sulfate 3 Ml Neb NEB 3 ml [id number] TAHIRA Administration Apixaban 2.5 mg 04/21/20 21:00 04/22/20 10:37 Apixaban 2.5 Mg Tab PO 2.5 mg BID [facility] Administration Ascorbic Acid 500 mg 04/22/20 09:00 04/23/20 08:51 Ascorbic Acid 500 Mg Chewable Tablet PO 500 mg DAILY [facility] Administration Aspirin 81 mg 04/22/20 09:00 04/23/20 08:50 Aspirin 81 Mg Enteric Coated Tablet PO 81 mg DAILY [facility] Administration Atorvastatin Calcium 20 mg 04/22/20 09:00 04/23/20 08:50 Atorvastatin Calcium 20 Mg Tab PO 20 mg DAILY [facility] Administration Calcium/Vitamin D 1 tab 04/21/20 21:00 04/23/20 08:50 Calcium Carbonate 600 Mg + Vit D Tab PO 1 tab BID [facility] Administration Carvedilol 3.125 mg 04/21/20 08:00 04/23/20 08:51 Carvedilol 3.125 Mg Tab PO 3.125 mg BID-WM [facility] Administration Cefdinir 300 mg 04/21/20 21:00 04/23/20 08:47 Cefdinir 300 Mg Cap PO 300 mg BID [facility] Administration Diclofenac Sodium 2 gm 04/21/20 17:00 04/23/20 12:57 Diclofenac 1% 100 Gm Gel TP Not Given QID [facility] Digoxin 0.25 mg 04/22/20 09:00 04/23/20 08:47 Digoxin 0.25 Mg Tab PO 0.25 mg QAM [facility] Administration Dofetilide 0.25 mg 04/21/20 21:00 04/23/20 08:47 Dofetilide 0.125 Mg Cap PO 0.25 mg BID [facility] Administration Ferrous Sulfate 325 mg 04/22/20 12:00 04/23/20 13:03 Ferrous Sulfate 325 Mg Tab PO 325 mg 1200 [facility] Administration Furosemide 40 mg 04/22/20 09:00 04/23/20 08:50 Furosemide 40 Mg Tab PO 40 mg DAILY [facility] Administration Iron/Minerals/Multivitamins 1 tab 04/22/20 09:00 04/23/20 08:47 ' PO 1 tab DAILY [facility] Administration Ketotifen Fumarate 1 drop 04/21/20 21:00 04/23/20 08:51 Ketotifen Fumarate 0.025% Ophth Soln 5 Ml Bottle EA EYE 1 drop BID [facility] Administration Lisinopril 2.5 mg 04/22/20 09:00 04/23/20 08:50 Lisinopril 2.5 Mg Tab PO 2.5 mg DAILY [facility] Administration Loratadine 10 mg 04/22/20 09:00 04/23/20 08:51 Loratadine 10 Mg Tab PO 10 mg DAILY [facility] Administration Melatonin 6 mg 04/21/20 21:00 04/22/20 20:20 Melatonin 3 Mg Tab PO 6 mg HS [facility] Administration Methylprednisolone Sodium Succinate 20 mg 04/22/20 14:00 04/23/20 13:06 Methylprednisolone Sod Succ 40 Mg Vial IVP 20 mg 0200,0800,1400,2000 [facility] Administration Mometasone Furoate/Formoterol Fumar 2 puff 04/21/20 18:30 04/23/20 07:14 Mometasone 200 Mcg/Formoterol 5 Mcg 120 Puff Inhaler INH 2 puff BID-RT [facility]A Administration Multivitamins/Zinc 1 tab 04/22/20 09:00 04/23/20 08:51 Stress 600 With Zinc 1 Tab PO 1 tab DAILY [facility] Administration Pantoprazole Sodium 40 mg 04/22/20 09:00 04/23/20 08:50 Pantoprazole 40 Mg Tab PO 40 mg DAILY [facility] Administration Potassium Chloride 20 meq 04/22/20 09:00 04/23/20 08:52 Potassium Chloride 20 Meq Tab PO Not Given DAILY [facility] Tramadol HCl 100 mg 04/21/20 21:00 04/23/20 08:46 Tramadol Hcl 50 Mg Tab PO 100 mg TID TAHIRA Administration - Exam General Appearance: awake alert Eye: PERRL, anicteric sclera ENT: no oropharyngeal lesions, moist mucosa Neck: supple, no JVD Heart: RRR, no murmur Respiratory: no wheezes, no rales, rhonchi Gastrointestinal: soft, non-tender, non-distended, normal bowel sounds Extremities: no cyanosis, no edema Neurological: cranial nerve grossly intact, no focal deficits Hosp A/P (1) PNA (pneumonia) Code(s): J18.9 - PNEUMONIA, UNSPECIFIED ORGANISM Status: Acute Qualifiers: Pneumonia type: due to unspecified organism (2) HLD (hyperlipidemia) Code(s): E78.5 - HYPERLIPIDEMIA, UNSPECIFIED Status: Chronic Qualifiers: Hyperlipidemia type: unspecified Qualified Code(s): E78.5 - Hyperlipidemia, unspecified (3) HTN (hypertension) Code(s): I10 - ESSENTIAL (PRIMARY) HYPERTENSION Status: Chronic Qualifiers: Hypertension type: essential hypertension Qualified Code(s): I10 - Essential (primary) hypertension (4) Acute on chronic respiratory failure Code(s): J96.20 - ACUTE AND CHR RESP FAILURE, UNSP W HYPOXIA OR HYPERCAPNIA Status: Acute Qualifiers: Respiratory failure complication: hypoxia Qualified Code(s): J96.21 - Acute and chronic respiratory failure with hypoxia (5) Anemia, normocytic normochromic Code(s): D64.9 - ANEMIA, UNSPECIFIED Status: Chronic (6) Chronic a-fib Code(s): I48.2 - CHRONIC ATRIAL FIBRILLATION * DO NOT USE * Status: Chronic (7) Kyphoscoliosis Code(s): M41.9 - SCOLIOSIS, UNSPECIFIED Status: Chronic (8) Rheumatoid arthritis Code(s): M06.9 - RHEUMATOID ARTHRITIS, UNSPECIFIED Status: Chronic Qualifiers: Rheumatoid factor presence: with rheumatoid factor Laterality: unspecified laterality (9) Asthma exacerbation Code(s): J45.901 - UNSPECIFIED ASTHMA WITH (ACUTE) EXACERBATION Status: Acute Qualifiers: Asthma severity: severe Asthma persistence: unspecified Qualified Code(s): J45.901 - Unspecified asthma with (acute) exacerbation - Plan is on omnicef, nebs, steroid taper, lasix, breo-ellipta inh continue home dose of dig, tikosyn, lisinopril, asp, lipitor and eliquis discussed code status with patient at bedside, he wants to be DNAR (04/21), POA is his daughter Ms.Sears Adan. I cannot reach over [employer] phone # (tried on 04/21, 04/22) appreciate pulm and electrophysiology specialist help, oral diet, no procedures are planned, is in sinus rhythm with MAT/PAC's hemostable ambulates very minimally per patient had childhood polio, kyphoscoliosis and ?osteogenisis imperfecta. Also has h/o RA with severe deformities of his fingers/multiple joints as well.
--- NOTE | 2020-04-23 13:50 | PRG ---
DATE OF SERVICE: 04/23/2020 SUBJECTIVE: Mr. Rosa is very upset today because he has been n.p.o. for reported EP study. I cannot find anywhere where an EP study is scheduled. The nurse does not know if one is scheduled or not. I have asked him to contact the automotive sales professional because he says he is about to leave. OBJECTIVE: VITAL SIGNS: He is afebrile. Heart rate is 87, respiratory rates in the teens, oximetry is 96% on 3 L, blood pressure 132/63. LUNGS: Clear with slightly prolonged expiratory phase. HEART: Regular rate and rhythm. ABDOMEN: Soft. IMPRESSION: 1. Asthma. 2. Deconditioning. 3. Severe kyphoscoliosis after polio as a child. 4. History of recurrent atrial fibrillation, on Tikosyn. His pacer defibrillator was interrogated today. 5. History of placement of defibrillator for severe cardiomyopathy. PLAN: Continue supportive care, probably switching to p.o. steroids in the morning. Job ID: [id number]
[2020-04-23] MEDS: Apixaban 2.5 MG TAB PO SCH (20:20)
[2020-04-23] MEDS: Melatonin 3 MG TAB PO SCH (20:20)
[2020-04-24] MEDS: methylPREDNISolone Sod Succ 40 MG VIAL IVP SCH ×3 (03:23→14:58)
[2020-04-24 05:28] LABS: Anion Gap 10 mmol/L (10-20); BUN (Urea Nitrogen) 45 mg/dL (8.4-25.7); Calc. Creatinine Clearance 81 mL/min (70-130); Calcium 8.8 mg/dL (7.8-10.44); Carbon Dioxide 33 mmol/L (23-31); Chloride 101 mmol/L (98-107); Glucose 165 mg/dL (83-110); Potassium 4.7 mmol/L (3.5-5.1); Sodium 139 mmol/L (136-145)
[2020-04-24] MEDS: Mometasone 200 MCG/Formoterol 5 MCG 120 PUFF INHALER INH SCH ×2 (07:58→19:23)
[2020-04-24] MEDS: traMADol HCl 50 MG TAB PO SCH ×3 (09:22→20:27)
[2020-04-24] MEDS: Calcium Carbonate 600 MG + Vit D TAB PO SCH ×2 (09:22→20:25)
[2020-04-24] MEDS: Dofetilide 0.125 MG CAP PO SCH ×2 (09:23→20:28)
[2020-04-24] MEDS: Ascorbic Acid 500 mg Chewable Tablet PO SCH (09:23)
[2020-04-24] MEDS: Loratadine 10 MG TAB PO SCH (09:23)
[2020-04-24] MEDS: Cefdinir 300 MG CAP PO SCH ×2 (09:24→20:25)
[2020-04-24] MEDS: Potassium Chloride 20 MEQ TAB PO SCH (09:24)
[2020-04-24] MEDS: Lisinopril 2.5 MG TAB PO SCH (09:24)
[2020-04-24] MEDS: Aspirin 81 mg Enteric Coated Tablet PO SCH (09:24)
[2020-04-24] MEDS: Digoxin 0.25 MG TAB PO SCH (09:24)
[2020-04-24] MEDS: Carvedilol 3.125 MG TAB PO SCH ×2 (09:24→17:24)
[2020-04-24] MEDS: ' PO SCH (09:24)
[2020-04-24] MEDS: Apixaban 2.5 MG TAB PO SCH ×2 (09:24→20:28)
[2020-04-24] MEDS: Atorvastatin Calcium 20 MG TAB PO SCH (09:25)
[2020-04-24] MEDS: Acetaminophen 325 MG TAB PO SCH ×3 (09:25→20:28)
[2020-04-24] MEDS: Furosemide 40 MG TAB PO SCH (09:25)
[2020-04-24] MEDS: Stress 600 With Zinc 1 TAB PO SCH (09:55)
[2020-04-24] MEDS: Ketotifen Fumarate 0.025% Ophth Soln 5 ml Bottle EA EYE SCH ×2 (12:46→20:29)
[2020-04-24] MEDS: Diclofenac 1% 100 GM GEL TP SCH ×4 (12:51→20:29)
[2020-04-24] MEDS: Ferrous Sulfate 325 MG TAB PO SCH (13:11)
--- NOTE | 2020-04-24 14:55 | PDOC.HOSPP ---
- Subjective Encounter Date: 04/24/20 Encounter Time: 10:45 Subjective: breathing better no c/o palpitations is eating well has not ambulated yet - Objective Vital Signs & Weight: Vital Signs (12 hours) Temp Pulse Resp BP BP Pulse Ox 04/24/20 14:21 90 24 H 04/24/20 12:07 97.6 F 78 19 146/66 H 100 04/24/20 10:13 94 16 04/24/20 09:24 95 121/59 L 04/24/20 07:51 94 L 04/24/20 07:50 95 16 04/24/20 07:46 97.6 F 104 H 18 155/71 H 96 04/24/20 03:48 97.7 F 75 18 131/61 96 Weight Admit Weight 163 lb Weight 151 lb 14.4 oz I&O: 04/23/20 04/24/20 04/25/20 06:59 06:59 06:59 Intake Total 735 837 480 Output Total 725 1400 Balance 10 -711 764 Result Diagrams: 04/23/20 04:30 04/24/20 04:33 Hospitalist ROS - Medication Medications: Active Medications Generic Name Dose Route Start Last Admin Trade Name Freq PRN Reason Stop Dose Admin Acetaminophen 650 mg 04/21/20 21:00 04/24/20 09:25 Acetaminophen 325 Mg Tab PO 650 mg TID TAHIRA Administration Albuterol/Ipratropium 3 ml 04/22/20 15:00 04/24/20 14:21 Ipratropium/Albuterol Sulfate 3 Ml Neb NEB 3 ml [id number] T[facility]A Administration Apixaban 2.5 mg 04/21/20 21:00 04/24/20 09:24 Apixaban 2.5 Mg Tab PO 2.5 mg BID [facility] Administration Ascorbic Acid 500 mg 04/22/20 09:00 04/24/20 09:23 Ascorbic Acid 500 Mg Chewable Tablet PO 500 mg DAILY [facility] Administration Aspirin 81 mg 04/22/20 09:00 04/24/20 09:24 Aspirin 81 Mg Enteric Coated Tablet PO 81 mg DAILY [facility] Administration Atorvastatin Calcium 20 mg 04/22/20 09:00 04/24/20 09:25 Atorvastatin Calcium 20 Mg Tab PO 20 mg DAILY [facility] Administration Calcium/Vitamin D 1 tab 04/21/20 21:00 04/24/20 09:22 Calcium Carbonate 600 Mg + Vit D Tab PO 1 tab BID [facility]A Administration Carvedilol 3.125 mg 04/21/20 08:00 04/24/20 09:24 Carvedilol 3.125 Mg Tab PO 3.125 mg BID-WM [facility] Administration Cefdinir 300 mg 04/21/20 21:00 04/24/20 09:24 Cefdinir 300 Mg Cap PO 300 mg BID [facility] Administration Diclofenac Sodium 2 gm 04/21/20 17:00 04/24/20 13:11 Diclofenac 1% 100 Gm Gel TP Not Given QID [facility]A Digoxin 0.25 mg 04/22/20 09:00 04/24/20 09:24 Digoxin 0.25 Mg Tab PO 0.25 mg QAM [facility]A Administration Dofetilide 0.25 mg 04/21/20 21:00 04/24/20 09:23 Dofetilide 0.125 Mg Cap PO 0.25 mg BID [facility] Administration Ferrous Sulfate 325 mg 04/22/20 12:00 04/24/20 13:11 Ferrous Sulfate 325 Mg Tab PO 325 mg 1200 [facility] Administration Furosemide 40 mg 04/22/20 09:00 04/24/20 09:25 Furosemide 40 Mg Tab PO 40 mg DAILY [facility] Administration Iron/Minerals/Multivitamins 1 tab 04/22/20 09:00 04/24/20 09:24 ' PO 1 tab DAILY [facility] Administration Ketotifen Fumarate 1 drop 04/21/20 21:00 04/24/20 12:46 Ketotifen Fumarate 0.025% Ophth Soln 5 Ml Bottle EA EYE Not Given BID [facility] Lisinopril 2.5 mg 04/22/20 09:00 04/24/20 09:24 Lisinopril 2.5 Mg Tab PO 2.5 mg DAILY [facility] Administration Loratadine 10 mg 04/22/20 09:00 04/24/20 09:23 Loratadine 10 Mg Tab PO 10 mg DAILY [facility] Administration Melatonin 6 mg 04/21/20 21:00 04/23/20 20:20 Melatonin 3 Mg Tab PO 6 mg HS [facility] Administration Methylprednisolone Sodium Succinate 20 mg 04/22/20 14:00 04/24/20 09:26 Methylprednisolone Sod Succ 40 Mg Vial IVP 20 mg 0200,0800,1400,2000 [facility] Administration Mometasone Furoate/Formoterol Fumar 2 puff 04/21/20 18:30 04/24/20 07:58 Mometasone 200 Mcg/Formoterol 5 Mcg 120 Puff Inhaler INH 2 puff BID-RT [facility] Administration Multivitamins/Zinc 1 tab 04/22/20 09:00 04/24/20 09:55 Stress 600 With Zinc 1 Tab PO 1 tab DAILY [facility] Administration Pantoprazole Sodium 40 mg 04/22/20 09:00 04/24/20 09:24 Pantoprazole 40 Mg Tab PO 40 mg DAILY [facility] Administration Potassium Chloride 20 meq 04/22/20 09:00 04/24/20 09:24 Potassium Chloride 20 Meq Tab PO 20 meq DAILY [facility] Administration Tramadol HCl 100 mg 04/21/20 21:00 04/24/20 09:22 Tramadol Hcl 50 Mg Tab PO 100 mg TID [facility]AH[facility]A Administration - Exam General Appearance: awake alert Eye: PERRL, anicteric sclera ENT: no oropharyngeal lesions, dry oral mucosa Neck: supple, no JVD Heart: RRR, no murmur Respiratory: no wheezes, no rales, rhonchi Gastrointestinal: soft, non-tender, non-distended, normal bowel sounds Extremities: no cyanosis, no edema Neurological: cranial nerve grossly intact, no focal deficits Hosp A/P (1) Asthma exacerbation Code(s): J45.901 - UNSPECIFIED ASTHMA WITH (ACUTE) EXACERBATION Status: Acute Qualifiers: Asthma severity: severe Asthma persistence: unspecified Qualified Code(s): J45.901 - Unspecified asthma with (acute) exacerbation (2) Acute on chronic respiratory failure Code(s): J96.20 - ACUTE AND CHR RESP FAILURE, UNSP W HYPOXIA OR HYPERCAPNIA Status: Acute Qualifiers: Respiratory failure complication: hypoxia Qualified Code(s): J96.21 - Acute and chronic respiratory failure with hypoxia (3) PNA (pneumonia) Code(s): J18.9 - PNEUMONIA, UNSPECIFIED ORGANISM Status: Acute Qualifiers: Pneumonia type: due to unspecified organism (4) HLD (hyperlipidemia) Code(s): E78.5 - HYPERLIPIDEMIA, UNSPECIFIED Status: Chronic Qualifiers: Hyperlipidemia type: unspecified Qualified Code(s): E78.5 - Hyperlipidemia, unspecified (5) HTN (hypertension) Code(s): I10 - ESSENTIAL (PRIMARY) HYPERTENSION Status: Chronic Qualifiers: Hypertension type: essential hypertension Qualified Code(s): I10 - Essential (primary) hypertension (6) Anemia, normocytic normochromic Code(s): D64.9 - ANEMIA, UNSPECIFIED Status: Chronic (7) Chronic a-fib Code(s): I48.2 - CHRONIC ATRIAL FIBRILLATION * DO NOT USE * Status: Chronic (8) Kyphoscoliosis Code(s): M41.9 - SCOLIOSIS, UNSPECIFIED Status: Chronic (9) Rheumatoid arthritis Code(s): M06.9 - RHEUMATOID ARTHRITIS, UNSPECIFIED Status: Chronic Qualifiers: Rheumatoid factor presence: with rheumatoid factor Laterality: unspecified laterality - Plan is on omnicef, nebs, steroid taper, lasix, breo-ellipta inh continue home dose of dig, tikosyn, lisinopril, asp, lipitor and eliquis discussed code status with patient at bedside, he wants to be DNAR (04/21), POA is his daughter Ms.Sears Adan. I cannot reach over [employer] phone # (tried on 04/21, 04/22) appreciate pulm and electrophysiology specialist help, oral diet, no procedures are planned, is in sinus rhythm with MAT/PAC's hemostable ambulates very minimally per patient had childhood polio, kyphoscoliosis and ?osteogenisis imperfecta. Also has h/o RA with severe deformities of his fingers/multiple joints as well. dc plan in am to [facility] if stable and cleared by
--- NOTE | 2020-04-24 16:41 | PRG ---
DATE OF SERVICE: 04/24/2020 OBJECTIVE: VITAL SIGNS: Jordy Rosa is afebrile. Heart rates in the 70s, respiratory rates in the teens, oximetry is 96 on 2 L, blood pressure 133/60. LUNGS: Free of wheezes. He still has a slightly prolonged expiratory phase. HEART: Regular rhythm. ABDOMEN: Soft. DIAGNOSTIC STUDIES: Echocardiogram shows ejection fraction to be 30% to 35%, moderate mitral regurgitation seen. IMPRESSION: 1. Deconditioning with severe kyphoscoliosis secondary to polio when he was young man. 2. Congestive heart failure. 3. Asthma. Intake and outputs, negative 563. Probably needs to be in a little bit of the negative fluid balance over the next few days. We will continue with nebulizer treatments. We will discontinue the IV steroids and treat him with prednisone now. Job ID: [id number]
[2020-04-24] MEDS: Melatonin 3 MG TAB PO SCH (20:25)
[2020-04-25 05:17] LABS: Anion Gap 10 mmol/L (10-20); BUN (Urea Nitrogen) 35 mg/dL (8.4-25.7); Calc. Creatinine Clearance 81 mL/min (70-130); Calcium 8.8 mg/dL (7.8-10.44); Carbon Dioxide 34 mmol/L (23-31); Chloride 101 mmol/L (98-107); Glucose 128 mg/dL (83-110); Potassium 4.5 mmol/L (3.5-5.1); Sodium 140 mmol/L (136-145)
[2020-04-25] MEDS: Mometasone 200 MCG/Formoterol 5 MCG 120 PUFF INHALER INH SCH ×2 (07:10→19:17)
[2020-04-25] MEDS: Ascorbic Acid 500 mg Chewable Tablet PO SCH (08:58)
[2020-04-25] MEDS: predniSONE 20 MG TAB PO SCH (08:58)
[2020-04-25] MEDS: Aspirin 81 mg Enteric Coated Tablet PO SCH (08:58)
[2020-04-25] MEDS: Carvedilol 3.125 MG TAB PO SCH ×2 (08:58→16:59)
[2020-04-25] MEDS: traMADol HCl 50 MG TAB PO SCH ×3 (08:58→21:06)
[2020-04-25] MEDS: Apixaban 2.5 MG TAB PO SCH ×2 (08:59→21:06)
[2020-04-25] MEDS: Calcium Carbonate 600 MG + Vit D TAB PO SCH ×2 (08:59→21:06)
[2020-04-25] MEDS: Cefdinir 300 MG CAP PO SCH ×2 (08:59→21:06)
[2020-04-25] MEDS: Digoxin 0.25 MG TAB PO SCH (08:59)
[2020-04-25] MEDS: Atorvastatin Calcium 20 MG TAB PO SCH (08:59)
[2020-04-25] MEDS: Dofetilide 0.125 MG CAP PO SCH ×2 (08:59→21:05)
[2020-04-25] MEDS: Lisinopril 2.5 MG TAB PO SCH (09:00)
[2020-04-25] MEDS: Stress 600 With Zinc 1 TAB PO SCH (09:00)
[2020-04-25] MEDS: Furosemide 40 MG TAB PO SCH (09:00)
[2020-04-25] MEDS: Loratadine 10 MG TAB PO SCH (09:00)
[2020-04-25] MEDS: Potassium Chloride 20 MEQ TAB PO SCH (09:00)
[2020-04-25] MEDS: ' PO SCH (09:00)
[2020-04-25] MEDS: Acetaminophen 325 MG TAB PO SCH ×3 (09:00→21:05)
[2020-04-25] MEDS: Ketotifen Fumarate 0.025% Ophth Soln 5 ml Bottle EA EYE SCH ×2 (10:47→21:37)
[2020-04-25] MEDS: Diclofenac 1% 100 GM GEL TP SCH ×4 (10:47→21:07)
[2020-04-25] MEDS: Ferrous Sulfate 325 MG TAB PO SCH (11:52)
--- NOTE | 2020-04-25 14:11 | PDOC.HOSPP ---
- Subjective Encounter Date: 04/25/20 Encounter Time: 08:00 Subjective: sob is better, is comfortable lying supine on bed with no pillows - Objective Vital Signs & Weight: Vital Signs (12 hours) Temp Pulse Resp BP Pulse Ox 04/25/20 11:53 97.7 F 76 18 106/54 L 100 04/25/20 10:24 84 20 04/25/20 07:50 97.8 F 83 18 118/55 L 95 04/25/20 07:00 80 12 04/25/20 03:52 98.0 F 75 20 110/55 L 95 Weight Admit Weight 163 lb Weight 150 lb 14.4 oz I&O: 04/24/20 04/25/20 04/26/20 06:59 06:59 06:59 Intake Total 837 1317 Output Total 1400 875 Balance -563 442 Result Diagrams: 04/23/20 04:30 04/25/20 04:25 Hospitalist ROS - Medication Medications: Active Medications Generic Name Dose Route Start Last Admin Trade Name Luis Alfredoq PRN Reason Stop Dose Admin Acetaminophen 650 mg 04/21/20 21:00 04/25/20 09:00 Acetaminophen 325 Mg Tab PO 650 mg TID TAHIRA Administration Albuterol/Ipratropium 3 ml 04/22/20 15:00 04/25/20 10:24 Ipratropium/Albuterol Sulfate 3 Ml Neb NEB 3 ml [id number] TAHIRA Administration Apixaban 2.5 mg 04/21/20 21:00 04/25/20 08:59 Apixaban 2.5 Mg Tab PO 2.5 mg BID TAHIRA Administration Ascorbic Acid 500 mg 04/22/20 09:00 04/25/20 08:58 Ascorbic Acid 500 Mg Chewable Tablet PO 500 mg DAILY TAHIRA Administration Aspirin 81 mg 04/22/20 09:00 04/25/20 08:58 Aspirin 81 Mg Enteric Coated Tablet PO 81 mg DAILY TAHIRA Administration Atorvastatin Calcium 20 mg 04/22/20 09:00 04/25/20 08:59 Atorvastatin Calcium 20 Mg Tab PO 20 mg DAILY TAHIRA Administration Calcium/Vitamin D 1 tab 04/21/20 21:00 04/25/20 08:59 Calcium Carbonate 600 Mg + Vit D Tab PO 1 tab BID TAHIRA Administration Carvedilol 3.125 mg 04/21/20 08:00 04/25/20 08:58 Carvedilol 3.125 Mg Tab PO 3.125 mg BID-WM TAHIRA Administration Cefdinir 300 mg 04/21/20 21:00 04/25/20 08:59 Cefdinir 300 Mg Cap PO 300 mg BID TAHIRA Administration Diclofenac Sodium 2 gm 04/21/20 17:00 04/25/20 10:47 Diclofenac 1% 100 Gm Gel TP Not Given QID TAHIRA Digoxin 0.25 mg 04/22/20 09:00 04/25/20 08:59 Digoxin 0.25 Mg Tab PO 0.25 mg QAM TAHIRA Administration Dofetilide 0.25 mg 04/21/20 21:00 04/25/20 08:59 Dofetilide 0.125 Mg Cap PO 0.25 mg BID TAHIRA Administration Ferrous Sulfate 325 mg 04/22/20 12:00 04/25/20 11:52 Ferrous Sulfate 325 Mg Tab PO 325 mg 1200 TAHIRA Administration Furosemide 40 mg 04/22/20 09:00 04/25/20 09:00 Furosemide 40 Mg Tab PO 40 mg DAILY TAHIRA Administration Iron/Minerals/Multivitamins 1 tab 04/22/20 09:00 04/25/20 09:00 ' PO 1 tab DAILY TAHIRA Administration Ketotifen Fumarate 1 drop 04/21/20 21:00 04/25/20 10:47 Ketotifen Fumarate 0.025% Ophth Soln 5 Ml Bottle EA EYE Not Given BID TAHIRA Lisinopril 2.5 mg 04/22/20 09:00 04/25/20 09:00 Lisinopril 2.5 Mg Tab PO 2.5 mg DAILY TAHIRA Administration Loratadine 10 mg 04/22/20 09:00 04/25/20 09:00 Loratadine 10 Mg Tab PO 10 mg DAILY TAHIRA Administration Melatonin 6 mg 04/21/20 21:00 04/24/20 20:25 Melatonin 3 Mg Tab PO 6 mg HS TAHIRA Administration Mometasone Furoate/Formoterol Fumar 2 puff 04/21/20 18:30 04/25/20 07:10 Mometasone 200 Mcg/Formoterol 5 Mcg 120 Puff Inhaler INH 2 puff BID-RT TAHIRA Administration Multivitamins/Zinc 1 tab 04/22/20 09:00 04/25/20 09:00 Stress 600 With Zinc 1 Tab PO 1 tab DAILY TAHIRA Administration Pantoprazole Sodium 40 mg 04/22/20 09:00 04/25/20 08:59 Pantoprazole 40 Mg Tab PO 40 mg DAILY TAHIRA Administration Potassium Chloride 20 meq 04/22/20 09:00 04/25/20 09:00 Potassium Chloride 20 Meq Tab PO 20 meq DAILY TAHIRA Administration Prednisone 20 mg 04/25/20 08:00 04/25/20 08:58 Prednisone 20 Mg Tab PO 20 mg QAM-WM TAHIRA Administration Tramadol HCl 100 mg 04/21/20 21:00 04/25/20 08:58 Tramadol Hcl 50 Mg Tab PO 100 mg TID TAHIRA Administration - Exam General Appearance: awake alert Eye: PERRL, anicteric sclera ENT: no oropharyngeal lesions, moist mucosa Neck: supple, no JVD Heart: RRR, no murmur Respiratory: no wheezes, no rales, rhonchi Gastrointestinal: soft, non-tender, non-distended, normal bowel sounds Extremities: no cyanosis, no edema Neurological: cranial nerve grossly intact, no focal deficits Psychiatric: A&O x 3 Hosp A/P (1) Asthma exacerbation Code(s): J45.901 - UNSPECIFIED ASTHMA WITH (ACUTE) EXACERBATION Status: Acute Qualifiers: Asthma severity: severe Asthma persistence: unspecified Qualified Code(s): J45.901 - Unspecified asthma with (acute) exacerbation (2) Acute on chronic respiratory failure Code(s): J96.20 - ACUTE AND CHR RESP FAILURE, UNSP W HYPOXIA OR HYPERCAPNIA Status: Acute Qualifiers: Respiratory failure complication: hypoxia Qualified Code(s): J96.21 - Acute and chronic respiratory failure with hypoxia (3) PNA (pneumonia) Code(s): J18.9 - PNEUMONIA, UNSPECIFIED ORGANISM Status: Acute Qualifiers: Pneumonia type: due to unspecified organism (4) HLD (hyperlipidemia) Code(s): E78.5 - HYPERLIPIDEMIA, UNSPECIFIED Status: Chronic Qualifiers: Hyperlipidemia type: unspecified Qualified Code(s): E78.5 - Hyperlipidemia, unspecified (5) HTN (hypertension) Code(s): I10 - ESSENTIAL (PRIMARY) HYPERTENSION Status: Chronic Qualifiers: Hypertension type: essential hypertension Qualified Code(s): I10 - Essential (primary) hypertension (6) Anemia, normocytic normochromic Code(s): D64.9 - ANEMIA, UNSPECIFIED Status: Chronic (7) Chronic a-fib Code(s): I48.2 - CHRONIC ATRIAL FIBRILLATION * DO NOT USE * Status: Chronic (8) Kyphoscoliosis Code(s): M41.9 - SCOLIOSIS, UNSPECIFIED Status: Chronic (9) Rheumatoid arthritis Code(s): M06.9 - RHEUMATOID ARTHRITIS, UNSPECIFIED Status: Chronic Qualifiers: Rheumatoid factor presence: with rheumatoid factor Laterality: unspecified laterality - Plan is on omnicef, nebs, steroid taper, lasix, breo-ellipta inh continue home dose of dig, tikosyn, lisinopril, asp, lipitor and eliquis discussed code status with patient at bedside, he wants to be DNAR (04/21), POA is his daughter Ms.Sears Adan. I cannot reach over [employer] phone # (tried on 04/21, 04/22) appreciate pulm and electrophysiology specialist help, oral diet, no procedures are planned, is in sinus rhythm with MAT/PAC's hemostable ambulates very minimally per patient had childhood polio, kyphoscoliosis and ?osteogenisis imperfecta. Also has h/o RA with severe deformities of his fingers/multiple joints as well. has ef of 35%, cardio consultation dc plan is to [facility] when cleared by specialists
--- NOTE | 2020-04-25 15:26 | PRG ---
DATE OF SERVICE: 04/25/2020 SUBJECTIVE: Jordy Rosa this morning says he is feeling somewhat better. OBJECTIVE: VITAL SIGNS: His temperature is 97, pulse 76, and saturations are 100 on 3 L, respirations 16, and blood pressure 106/54. CHEST: Decreased breath sounds. No wheezing. CARDIAC: Normal S1 and S2. No gallops. ABDOMEN: No masses. ASSESSMENT: 1. End-stage chronic obstructive pulmonary disease. 2. Respiratory failure, slowing improving. PLAN: Continue present treatment. May be switched over to prednisone. PT. Hopefully home in the next few days. Job ID: [id number]
[2020-04-25] MEDS: Melatonin 3 MG TAB PO SCH (21:05)
[2020-04-26 04:59] LABS: Anion Gap 10 mmol/L (10-20); BUN (Urea Nitrogen) 28 mg/dL (8.4-25.7); Calc. Creatinine Clearance 84 mL/min (70-130); Calcium 8.5 mg/dL (7.8-10.44); Carbon Dioxide 34 mmol/L (23-31); Chloride 99 mmol/L (98-107); Glucose 85 mg/dL (83-110); Potassium 4.3 mmol/L (3.5-5.1); Sodium 139 mmol/L (136-145)
[2020-04-26] MEDS: Mometasone 200 MCG/Formoterol 5 MCG 120 PUFF INHALER INH SCH ×2 (07:05→20:02)
[2020-04-26] MEDS: Ketotifen Fumarate 0.025% Ophth Soln 5 ml Bottle EA EYE SCH ×2 (08:28→20:28)
[2020-04-26] MEDS: traMADol HCl 50 MG TAB PO SCH ×3 (08:29→20:26)
[2020-04-26] MEDS: Loratadine 10 MG TAB PO SCH (08:29)
[2020-04-26] MEDS: Calcium Carbonate 600 MG + Vit D TAB PO SCH ×2 (08:29→20:26)
[2020-04-26] MEDS: Apixaban 2.5 MG TAB PO SCH ×2 (08:29→20:27)
[2020-04-26] MEDS: predniSONE 20 MG TAB PO SCH (08:30)
[2020-04-26] MEDS: Acetaminophen 325 MG TAB PO SCH ×3 (08:30→20:26)
[2020-04-26] MEDS: Digoxin 0.25 MG TAB PO SCH (08:31)
[2020-04-26] MEDS: Potassium Chloride 20 MEQ TAB PO SCH (08:31)
[2020-04-26] MEDS: ' PO SCH (08:31)
[2020-04-26] MEDS: Stress 600 With Zinc 1 TAB PO SCH (08:31)
[2020-04-26] MEDS: Furosemide 40 MG TAB PO SCH (08:31)
[2020-04-26] MEDS: Dofetilide 0.125 MG CAP PO SCH ×2 (08:31→20:26)
[2020-04-26] MEDS: Cefdinir 300 MG CAP PO SCH ×2 (08:31→20:26)
[2020-04-26] MEDS: Carvedilol 3.125 MG TAB PO SCH ×2 (08:31→17:09)
[2020-04-26] MEDS: Ascorbic Acid 500 mg Chewable Tablet PO SCH (08:31)
[2020-04-26] MEDS: Aspirin 81 mg Enteric Coated Tablet PO SCH (08:31)
[2020-04-26] MEDS: Lisinopril 2.5 MG TAB PO SCH (08:32)
[2020-04-26] MEDS: Atorvastatin Calcium 20 MG TAB PO SCH (08:32)
[2020-04-26] MEDS: Diclofenac 1% 100 GM GEL TP SCH ×4 (08:32→20:27)
[2020-04-26] MEDS ORDERED: Zinc Sulfate 220 MG CAP PO SCH (09:00)
[2020-04-26 09:56] LABS: Digoxin 1.15 ng/mL (0.8-2.0)
[2020-04-26] MEDS: Ferrous Sulfate 325 MG TAB PO SCH (12:06)
[2020-04-26] MEDS ORDERED: ALPRAZolam 0.25 MG TAB PO SCH (12:45)
--- NOTE | 2020-04-26 14:21 | PRG ---
DATE OF SERVICE: 04/26/2020 SUBJECTIVE: This morning, he said he is feeling better, less short of breath. OBJECTIVE: VITAL SIGNS: Temperature , blood pressure . LUNGS: Severe kyphoscoliosis, bilateral chest. Decreased breath sounds, no wheezing. CARDIAC: Normal S1, S2. ASSESSMENT: Chronic obstructive pulmonary disease, respiratory failure. PLAN: P.o. medicine. PT, supportive care, home in next several days. Job ID: [id number]
--- NOTE | 2020-04-26 17:03 | PDOC.HOSPP ---
- Subjective Encounter Date: 04/26/20 Encounter Time: 11:20 Subjective: Patient up in bed complains of shortness of breath. - Objective Vital Signs & Weight: Vital Signs (12 hours) Temp Pulse Resp BP BP Pulse Ox 04/26/20 15:51 83 16 04/26/20 15:26 97.8 F 83 24 H 119/58 L 100 04/26/20 12:05 97.9 F 87 24 H 126/62 98 04/26/20 10:46 97 20 04/26/20 07:30 97.8 F 88 24 H 136/61 63 L 04/26/20 07:05 104 H 04/26/20 06:52 135 H 20 04/26/20 06:51 95 Weight Admit Weight 163 lb Weight 150 lb 14.4 oz I&O: 04/25/20 04/26/20 04/27/20 06:59 06:59 06:59 Intake Total 1317 1780 Output Total 875 1850 Balance 442 -70 Result Diagrams: 04/23/20 04:30 04/26/20 03:40 Hospitalist ROS - Review of Systems Respiratory: reports: shortness of breath Cardiovascular: reports: light headedness Gastrointestinal: denies: nausea, vomiting, abdominal pain, diarrhea, constipation, melena, hematochezia, other Genitourinary: denies: dysuria, frequency, incontinence, hematuria, retention, other - Medication Medications: Active Medications Generic Name Dose Route Start Last Admin Trade Name Freq PRN Reason Stop Dose Admin Acetaminophen 650 mg 04/21/20 21:00 04/26/20 15:32 Acetaminophen 325 Mg Tab PO 650 mg TID TAHIRA Administration Albuterol/Ipratropium 3 ml 04/22/20 15:00 04/26/20 15:51 Ipratropium/Albuterol Sulfate 3 Ml Neb NEB 3 ml [id number] TAHIRA Administration Apixaban 2.5 mg 04/21/20 21:00 04/26/20 08:29 Apixaban 2.5 Mg Tab PO 2.5 mg BID TAHIRA Administration Ascorbic Acid 500 mg 04/22/20 09:00 04/26/20 08:31 Ascorbic Acid 500 Mg Chewable Tablet PO 500 mg DAILY TAHIRA Administration Aspirin 81 mg 04/22/20 09:00 04/26/20 08:31 Aspirin 81 Mg Enteric Coated Tablet PO 81 mg DAILY TAHIRA Administration Atorvastatin Calcium 20 mg 04/22/20 09:00 04/26/20 08:32 Atorvastatin Calcium 20 Mg Tab PO 20 mg DAILY TAHIRA Administration Calcium/Vitamin D 1 tab 04/21/20 21:00 04/26/20 08:29 Calcium Carbonate 600 Mg + Vit D Tab PO 1 tab BID TAHIRA Administration Carvedilol 3.125 mg 04/21/20 08:00 04/26/20 08:31 Carvedilol 3.125 Mg Tab PO 3.125 mg BID-WM TAHIRA Administration Cefdinir 300 mg 04/21/20 21:00 04/26/20 08:31 Cefdinir 300 Mg Cap PO 300 mg BID TAHIRA Administration Diclofenac Sodium 2 gm 04/21/20 17:00 04/26/20 12:07 Diclofenac 1% 100 Gm Gel TP 1 applic QID [facility] Administration Digoxin 0.25 mg 04/22/20 09:00 04/26/20 08:31 Digoxin 0.25 Mg Tab PO 0.25 mg QAM TAHIRA Administration Dofetilide 0.25 mg 04/21/20 21:00 04/26/20 08:31 Dofetilide 0.125 Mg Cap PO 0.25 mg BID [facility] Administration Ferrous Sulfate 325 mg 04/22/20 12:00 04/26/20 12:06 Ferrous Sulfate 325 Mg Tab PO 325 mg 1200 TAHIRA Administration Furosemide 40 mg 04/22/20 09:00 04/26/20 08:31 Furosemide 40 Mg Tab PO 40 mg DAILY TAHIRA Administration Guaifenesin/Dextromethorphan 15 ml 04/21/20 03:09 04/26/20 08:28 Guaifenesin Dm 100-10/5 Ml Udcup PO 15 ml Q4H PRN Administration Cough Iron/Minerals/Multivitamins 1 tab 04/22/20 09:00 04/26/20 08:31 ' PO 1 tab DAILY TAHIRA Administration Ketotifen Fumarate 1 drop 04/21/20 21:00 04/26/20 08:28 Ketotifen Fumarate 0.025% Ophth Soln 5 Ml Bottle EA EYE 1 drop BID TAHIRA Administration Lisinopril 2.5 mg 04/22/20 09:00 04/26/20 08:32 Lisinopril 2.5 Mg Tab PO 2.5 mg DAILY TAHIRA Administration Loratadine 10 mg 04/22/20 09:00 04/26/20 08:29 Loratadine 10 Mg Tab PO 10 mg DAILY TAHIRA Administration Melatonin 6 mg 04/21/20 21:00 04/25/20 21:05 Melatonin 3 Mg Tab PO 6 mg HS TAHIRA Administration Mometasone Furoate/Formoterol Fumar 2 puff 04/21/20 18:30 04/26/20 07:05 Mometasone 200 Mcg/Formoterol 5 Mcg 120 Puff Inhaler INH 2 puff BID-RT TAHIRA Administration Multivitamins/Zinc 1 tab 04/22/20 09:00 04/26/20 08:31 Stress 600 With Zinc 1 Tab PO 1 tab DAILY TAHIRA Administration Pantoprazole Sodium 40 mg 04/22/20 09:00 04/26/20 08:31 Pantoprazole 40 Mg Tab PO 40 mg DAILY TAHIRA Administration Potassium Chloride 20 meq 04/22/20 09:00 04/26/20 08:31 Potassium Chloride 20 Meq Tab PO 20 meq DAILY TAHIRA Administration Prednisone 20 mg 04/25/20 08:00 04/26/20 08:30 Prednisone 20 Mg Tab PO 20 mg QAM-WM TAHIRA Administration Tramadol HCl 100 mg 04/21/20 21:00 04/26/20 15:31 Tramadol Hcl 50 Mg Tab PO 100 mg TID TAHIRA Administration Zinc Sulfate 220 mg 04/26/20 09:00 04/26/20 08:32 Zinc Sulfate 220 Mg Cap PO 220 mg DAILY TAHIRA Administration - Exam Neck: negative: supple, symmetric, no JVD, no thyromegaly, no lymphadenopathy, no carotid bruit, JVD Heart: negative: RRR, no murmur, no gallops, no rubs, normal peripheral pulses, irregular, diminshed peripheral pulses, murmur present, II/IV, III/IV Respiratory: wheezes Gastrointestinal: negative: soft, non-tender, non-distended, normal bowel sounds, no palpable masses, no hepatomegaly, no splenomegaly, no bruit, no guarding, no rigidity, tender to palpation, distended, diminished bowl sounds, voluntary guarding Hosp A/P - Plan (1) Asthma exacerbation Code(s): J45.901 - UNSPECIFIED ASTHMA WITH (ACUTE) EXACERBATION Status: Acute Qualifiers: Asthma severity: severe Asthma persistence: unspecified Qualified Code(s): J45.901 - Unspecified asthma with (acute) exacerbation (2) Acute on chronic respiratory failure Code(s): J96.20 - ACUTE AND CHR RESP FAILURE, UNSP W HYPOXIA OR HYPERCAPNIA Status: Acute Qualifiers: Respiratory failure complication: hypoxia Qualified Code(s): J96.21 - Acute and chronic respiratory failure with hypoxia (3) PNA (pneumonia) Code(s): J18.9 - PNEUMONIA, UNSPECIFIED ORGANISM Status: Acute Qualifiers: Pneumonia type: due to unspecified organism (4) HLD (hyperlipidemia) Code(s): E78.5 - HYPERLIPIDEMIA, UNSPECIFIED Status: Chronic Qualifiers: Hyperlipidemia type: unspecified Qualified Code(s): E78.5 - Hyperlipidemia, unspecified (5) HTN (hypertension) Code(s): I10 - ESSENTIAL (PRIMARY) HYPERTENSION Status: Chronic Qualifiers: Hypertension type: essential hypertension Qualified Code(s): I10 - Essential (primary) hypertension (6) Anemia, normocytic normochromic Code(s): D64.9 - ANEMIA, UNSPECIFIED Status: Chronic (7) Chronic a-fib Code(s): I48.2 - CHRONIC ATRIAL FIBRILLATION * DO NOT USE * Status: Chronic (8) Kyphoscoliosis Code(s): M41.9 - SCOLIOSIS, UNSPECIFIED Status: Chronic (9) Rheumatoid arthritis Code(s): M06.9 - RHEUMATOID ARTHRITIS, UNSPECIFIED Status: Chronic Qualifiers: Rheumatoid factor presence: with rheumatoid factor Laterality: unspecified laterality - Plan is on omnicef, nebs, steroid taper, lasix, breo-ellipta inh continue home dose of dig, tikosyn, lisinopril, asp, lipitor and eliquis discussed code status with patient at bedside, he wants to be DNAR (04/21), POA is his daughter Ms.Sears Adan. I cannot reach over [employer] phone # (tried on 04/21, 04/22) appreciate pulm and electrophysiology specialist help, oral diet, no procedures are planned, is in sinus rhythm with MAT/PAC's hemostable ambulates very minimally per patient had childhood polio, kyphoscoliosis and ?osteogenisis imperfecta. Also has h/o RA with severe deformities of his fingers/multiple joints as well. 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 tach. I did review the strip we did talk with cardiology does not appear to be V. tach. Patient electrolytes are normal. EKG does not indicate prolonged QTC. He has had V. tach in the past he has an ICD. He was shocked in February 2020 per EP's note. Patient currently is asymptomatic. We will monitor him overnight. Patient continues to state that he is short of breath however his 9790% on oxygen. We will continue current treatment.
[2020-04-26] MEDS: Melatonin 3 MG TAB PO SCH (20:26)
[2020-04-27] MEDS ORDERED: ALPRAZolam 0.25 MG TAB PO SCH (00:30)
[2020-04-27] MEDS ORDERED: Furosemide 40 MG/4 ML VIAL ONE (03:00)
[2020-04-27 03:03] VITALS: TEMP 97.5
[2020-04-27] MEDS ORDERED: methylPREDNISolone Sod Succ 40 MG VIAL IVP SCH (03:30)
--- NOTE | 2020-04-27 04:33 | PDOC.BPN ---
- Brief Progress Note Encounter Date: 04/27/20 Tracey foote was called and patient on account of tachypnea and increasing work of breathing. Stat labs and ABG ordered. Initial chest x-ray showed some congestion and was started on IV Lasix Also given Solu-Medrol for COPD exacerbation. Patient is DNR. Currently no ICU beds for CPAP or any further intervention. We will continue monitoring on the floor. I will call to inform family. I attempted to call daughter however she was not allowed to be called. I left a message that she could call back Addendum: 5:23am:Was notified by nurse chemical plant operator supervisor. Patient started having periods of apnea and pulses became faint. Patient passed on at 0528, 04/27/20: Pronounced by nurse chemical plant operator supervisor.
[2020-04-27 04:38] LABS: #Eosinphils 0.1 thou/uL (0.0-0.7); #Lymphocytes 1.8 thou/uL (1.20-3.40); #Monocytes 0.9 thou/uL (0.11-0.59); #Neutrophils 16.6 thou/uL (1.40-6.50); %Basophils 0.2 % (0.0-1.0); %Eosinophils 0.4 % (0.0-10.0); %Lymphocytes 9.3 % (21.0-51.0); %Monocytes 4.9 % (0.0-10.0); %Neutrophils 85.3 % (42.0-75.0); Hemoglobin 15.4 g/dL (14.0-18.0); Mean Corpuscular HGB CONC 31.8 g/dL (32.0-36.0); Mean Corpuscular Hemoglobin 32.6 pg (27.0-31.0); Mean Platelet Volume 8.1 fL (7.4-10.4); Platelet Count 189 thou/uL (130-400); RBC Distribution Width 12.7 % (11.5-14.5); Red Blood Cell (RBC) Count 4.71 mill/uL (4.70-6.10); White Blood Cell (WBC) Count 19.5 thou/uL (4.8-10.8)
[2020-04-27 04:43] LABS: Anion Gap 15 mmol/L (10-20); BUN (Urea Nitrogen) 26 mg/dL (8.4-25.7); Calc. Creatinine Clearance 77 mL/min (70-130); Calcium 8.8 mg/dL (7.8-10.44); Carbon Dioxide 30 mmol/L (23-31); Chloride 95 mmol/L (98-107); Glucose 145 mg/dL (83-110); Potassium 4.7 mmol/L (3.5-5.1); Sodium 135 mmol/L (136-145)
[2020-04-27 04:44] LABS: Anion Gap 15 mmol/L (10-20); BUN (Urea Nitrogen) 28 mg/dL (8.4-25.7); Calc. Creatinine Clearance 77 mL/min (70-130); Calcium 8.7 mg/dL (7.8-10.44); Carbon Dioxide 31 mmol/L (23-31); Chloride 96 mmol/L (98-107); Glucose 151 mg/dL (83-110); Potassium 4.9 mmol/L (3.5-5.1); Sodium 137 mmol/L (136-145)
[2020-04-27 04:47] LABS: Troponin I 0.071 ng/mL (< 0.028)
[2020-04-27 05:15] VITALS: BP 162/77
[2020-04-27 05:55] LABS: Actual Bicarbonate (HCO3a) 34.6 mEq/L (22-28); Base Excess (BEa) 6.6 mEq/L (-2.0 to +3.0); Carboxyhemoglobin (COHb) 0.8 gm% (0.0-3.0); Hemoglobin (Hb) 15.4 g/dL (14.0-18.0); O2 Tension (PaO2), arterial 64.5 mmHg (> 70.0); Potassium - ABG Lab 4.13 mmol/L (3.70-5.30); pH, Arterial 7.35 (7.35-7.45)
--- NOTE | 2020-04-27 10:14 | RAD ---
Chest one view HISTORY: Dyspnea. COMPARISON: 04/20/2020. FINDINGS: Cardiac silhouette is magnified and enlarged. Pulmonary vasculature are unchanged. Mediastinum is midline with a dual lead left subclavian cardiac electronic device. Extensive deformity of the right chest wall unchanged. Subtle patchy infiltrate at the lung bases is unchanged from the prior exam. No evidence of pneumothorax. IMPRESSION : No significant interval change.
--- NOTE | 2020-04-27 17:43 | PDOC.DS.DS ---
Provider - Provider Date of Admission: 04/21/20 10:36 Date of Discharge: 04/27/20 Admitting Provider: Dandre Lin Primary Care Physician: ROLAND Winters Course - Hospital Course Hospital Course: Patient is a 79-year-old male who initially presented to the hospital with complaints of shortness of breath. Patient has a history of COPD is on chronic home oxygen and also has polio. He also has a EF of 30 to 35% chronic A. fib and has an ICD. Patient's Covid test was negative. Patient was seen by pulmonary and cardiology he was also seen by electrophysiology. He initially was put on IV steroids which were tapered off. Echocardiogram was rechecked which indicated an EF of 30 to 35%. Patient overnight was noted to be tachypneic and short of breath at this time ABG was ordered rapid response was called patient was a DNAR. Patient started having episodes of apnea and and pulse became faint at this time patient was pronounced at 5:28 AM Resuscitation Status: 04/21/20 11:10 Resuscitation Status Routine Resuscitation Status: DNAR: NO Resuscitation Discussed with: d/w patient at bedside, POA is daughter Ms.Sears Adan - Labs Lab Results: 04/27/20 04:13 04/27/20 04:13 Abnormal Lab Results - Last 48 hrs 04/26/20 03:40: Carbon Dioxide 34 H, BUN 28 H 04/27/20 04:13: Chloride 96 L, BUN 28 H 04/27/20 04:13: Sodium 135 L, Chloride 95 L, BUN 26 H 04/27/20 04:13: Troponin I 0.071 H 04/27/20 04:13: WBC 19.5 H, MCV 103.0 H, MCH 32.6 H, MCHC 31.8 L, Neutrophils % 85.3 H, Lymphocytes % 9.3 L, Neutrophils # 16.6 H, Monocytes # 0.9 H 04/27/20 04:14: B-Natriuretic Peptide 516.9 H Microbiology - Entire Visit 04/20/20 20:21 Nasal swab Influenza Types A,B Direct EIA - Final - Physical Exam Vitals: Weight Admit Weight 163 lb Weight 153 lb 9.6 oz Physical Exam: The patient was seen and examined on the day of discharge. Problem - Discharge Plan Assessment: 1. Asthma exacerbation #2 acute on chronic respiratory failure #3 pneumonia #4 chronic A. fib #5 hyperlipidemia Plan - Discharge Medications Home Medications: Medication Instructions Recorded Confirmed Type Aspirin [Aspirin EC] 81 mg PO DAILY 04/14/18 04/21/20 History Atorvastatin Calcium [Lipitor] 20 mg PO DAILY 04/14/18 04/21/20 History Cholecalciferol [Vitamin D3] 5,000 unit PO DAILY 04/14/18 04/21/20 History Dofetilide [Tikosyn] 250 mcg PO BID 04/14/18 04/21/20 History Lisinopril 2.5 mg PO DAILY 04/14/18 04/21/20 History Multivitamin [Multivitamins] 1 tablet PO DAILY 04/14/18 04/21/20 History Omeprazole 20 mg PO DAILY 04/14/18 04/21/20 History Polyethylene Glycol 3350 [Miralax] 17 gm PO PRN PRN 04/14/18 04/21/20 History Potassium Chloride 20 meq PO DAILY 04/14/18 04/21/20 History Apixaban [Eliquis] 2.5 mg PO BID 09/27/18 04/21/20 History Digoxin [Lanoxin] 250 mcg PO QAM 09/27/18 04/21/20 History Furosemide [Lasix] 20 mg PO DAILY 09/27/18 04/21/20 History Loratadine [Claritin] 10 mg PO DAILY 09/27/18 04/21/20 History Ferrous Sulfate 325 mg PO DAILY 11/04/18 04/21/20 History Ipratropium/Albuterol Sulfate 3 ml NEB [id number] 11/04/18 04/21/20 History [DuoNeb] ALButerol Sulfate [Ventolin Neb] 3 ml NEB Q4HR PRN 02/08/19 04/21/20 History Ascorbic Acid [Vitamin C] 500 mg PO DAILY 02/08/19 04/21/20 History Diclofenac Sodium [Diclofenac 2 gm TOP QID 02/08/19 04/21/20 History Sodium 1% Gel] Zinc Sulfate 100 mg PO DAILY 02/08/19 04/21/20 History Metoprolol Succinate [Toprol XL] 12.5 mg PO BID tab 03/02/19 04/21/20 Rx Calcium Carbonate/Vitamin D3 1 tablet PO BID 02/29/20 04/21/20 History [Calcium 600 + Vitamin D 400] Fluticasone/Vilanterol [Breo 1 each IH DAILY 02/29/20 04/21/20 History Ellipta 200-25 Mcg INH] Olopatadine HCl [Pataday] 1 drop EA EYE BID 02/29/20 04/21/20 History traMADol HCl/Acetaminophen 2 tablet PO TID 02/29/20 04/21/20 History [Ultracet Tablet] predniSONE 10 mg PO QAM-WM #0 03/08/20 04/21/20 Rx Bisacodyl [Dulcolax] 10 mg MD DAILY PRN 04/21/20 04/21/20 History Cholecalciferol (Vitamin D3) 1,000 unit PO BID 04/21/20 04/21/20 History [Vitamin D3] Docusate Sodium [Dulcolax Stool 100 mg PO DAILY PRN 04/21/20 04/21/20 History Softener] Mag Hydrox/Aluminum Hyd/Simeth 10 ml PO Q4H PRN 04/21/20 04/21/20 History [Mag-Alum Hydroxide-Simeth Susp] Melatonin 5 mg PO HS 04/21/20 04/21/20 History Vitamin B Complex [B Complex] 1 tablet PO DAILY 04/21/20 04/21/20 History Allergies: ibuprofen [From Motrin] Allergy (Verified 04/21/20 05:25) PER [place] RECORDS. - Follow up Plan Referrals: [facility]a* [Outside] (Returning long term care administrator resident.) Jody Chand DO [Active] - Minesh Castillo FNP [Primary Care Provider] - Disposition: Quality - Care Measures CORE MEASURES:: N/A
[2020-04-27 18:22] LABS: CO2 Tension 63.6 mmHg (35.0-45.0)
[2020-04-27 18:23] LABS: Puncture Site LRA
--- NOTE | 2020-04-29 10:31 | EKG ---
Test Reason : Blood Pressure : / mmHG Vent. Rate : 089 BPM Atrial Rate : 089 BPM P-R Int : 178 ms QRS Dur : 100 ms QT Int : 332 ms P-R-T Axes : 068 -64 -82 degrees QTc Int : 403 ms Poor data quality, interpretation may be adversely affected Demand pacemaker; interpretation is based on intrinsic rhythm Pacer spikes are rarely seen,this may be artifact unless pt. does have a pacemaker Sinus rhythm with occasional PVC's Left axis deviation Incomplete right bundle branch block Abnormal ECG When compared with ECG of 22-APR-2020 08:50, Significant changes have occurred Confirmed by Ameena FLOR ([id number]) on 04/29/2020 10:30:40 AM Referred By: DAVINA Confirmed By:Ameena FLOR
--- NOTE | 2020-05-05 06:23 | PQF ---
CLINICAL DOCUMENTATION CLARIFICATION FORM: Dear : Anne Roberts MD Date / Time: 05/05/2020 Please exercise your independent, professional judgment in responding to the clarification form. Clinical indicators are provided on the bottom of this form for your review Please check appropriate box(es): HEART FAILURE: A. ACUITY [ ] Acute [ x ] Acute on Chronic [ ] Chronic B. TYPE: [ x ] Systolic / HFrEF [ ] Diastolic / HFpEF [ ] Combined Systolic / Diastolic [ ] Hypertensive Heart and Kidney disease [ ] Hypertensive Heart Disease [ ] Hypertensive Kidney Disease [ ] Other diagnosis (Please specify if any) [ ] Unable to determine In addition, please specify: Present on Admission (POA): [ x ] Yes [ ] No [ ] Unable to determine Physician Signature: Date/Time: For continuity of documentation, please document condition throughout progress notes and discharge summary. Thank You. To be completed by CDI/Coding staff for physician review: Present Clinical Indicators - Signs / Symptoms / Labs Results and Location in Medical Record [x ] Ejection Fraction =__30-35____ % Echo on 04/23 [ ] Dyspnea, Hypoxia [ x ] Peripheral edema Consult on 04/22 [ x ] Elevated BNP 741.4 Laboratory on 04/21 [ x ] Chronic systolic chf Consult on 04/22 [ ] Orthopnea / SOB / dyspnea [ ] Pleural effusion / pulmonary edema [ ] CXR results [ ] Arrhythmia--tachycardia Present Risk Factors Results and Location in Medical Record [ ] History of CAD/ischemic heart disease [x ] CKD Hypertension H&P on 04/21 [ ] History of VT Present Treatments Results and Location in Medical Record [ ] Administration of MATT / ARB / BB [ x ] Lasiz 40 mg IV Medication on 04/21 [ ] IV or PO diuretics [ ] Oxygen [ ] AICD [ ] Cardiology Consult CDS/Driver Trainee Signature: AAS Phone #: Date/Time: 05/05/2020 This is a permanent part of the Medical Record [facility]
--- NOTE | 2020-05-07 14:07 | PQF ---
CLINICAL DOCUMENTATION CLARIFICATION FORM: Dear : Anne Roberts MD Date / Time: 05/07/2020 Please exercise your independent, professional judgment in responding to the clarification form. Clinical indicators are provided on the bottom of this form for your review Please check appropriate box(es): AMI TYPE: [ ] Type 1 MN (STEMI) (please also specify site and artery see below) SITE: [ ] Anterior [ ] Apical [ ] Lateral [ ] Inferior [ ] Posterior [ ] Q Wave [ ] Septal [ ] Unable to Determine SPECIFIC ARTERY (Based on site) [ ] Left Main Coronary [ ] Diagonal [ ] Left Anterior Descending [ ] Oblique Marginal [ ] Right Coronary Artery [ ] Left Circumflex [ ] Unable to Determine ONSET OF INFARCTION: [ ] Onset Less than 4 weeks of admission [ ] Onset Greater than 4 weeks of admission [ ] Unable to determine [ ] Type 1 MN (NSTEMI) [ x ] Type 2 MN (T2MI) secondary to: [ ] hypertension [ ] arrhythmia [ ] Infection [ ] severe anemia [ ] ischemic stroke [ ] renal failure [ ] heart failure [ x] other demand related [ ] Type 3 MN (sudden without cardiac biomarker and/or with evidence of MN by autopsy) [ ] Type 4-5 MN (MN with PCI/PCI stent thrombosis, PCI re-stenosis or CABG related MN) [ ] Myocardial Infarction with no obstructive coronary atherosclerosis (MINOCA) (MINOCA is a classification independent from the UDMI and includes patients with Type I & Type 2 MN) [ ] Acute non-ischemic myocardial injury in the absence of MN [ ] Unstable Angina [ ] ACS [ ] Other: [ ] Takotsubo syndrome [ ] Other diagnosis (Please specify if any) [ ] Unable to determine In addition, please specify: Present on Admission (POA): [ x] Yes [ ] No [ ] Unable to determine Physician Signature: Date/Time: For continuity of documentation, please document condition throughout progress notes and discharge summary. Thank You To be completed by CDI/Coding staff for physician review: Present Clinical Indicators - Signs / Symptoms / Labs Results and Location in Medical Record [x] Elevated biomarkers (CK-MB, Troponin T or I) Tropnin-0.078,0.128,0.071 laboratory on 04/20,04/21,04/27 [ ] EKG changes (ST Elevation, Non ST Elevation, Q waves, new LBB) [x] Abnormal Echocardiogram-inferior and anteroseptal infarct, age undetermined ECG on 04/22 [x] He was seen to have an increase activity in his atrial arrhythmia Consult on 04/22 [ ] Nausea, vomiting, diaphoresis Present Risk Factors Results and Location in Medical Record [x ] Hypertension H&P on 04/21 [ ] History of Coronary Artery Disease [ x ] High Cholesterol/Lipids H&P on 04/21 [ ] History of Diabetes [ ] History of MN Present Treatments Results and Location in Medical Record [ ] Heart cath / percutaneous intervention [ ] Anticoagulation / TPA [x] Aspirin 81mg Medication from 04/22 to 04/27 [ ] Oxygen [ ] Vasodilators [ ] Continuous cardiac monitoring [x] Cardiac consult Consult on 04/22 CDS/Account Underwriter Signature: YOHANNES Phone #: Date/Time: 05/07/2020 This is a permanent part of the Medical Record [facility]
== END 2020-04-27 08:14 | disposition expired | DRG 193 ==
LOC: ERS 19:36 → 2NO 23:43 → OBSVTOIN 04-21 10:36
PROVIDERS: ADMIT Internal Medicine; ATTEND Internal Medicine
DX: J18.9 Pneumonia, unspecified organism (principal); J96.21 Acute and chronic respiratory failure with hypoxia; I50.23 Acute on chronic systolic (congestive) heart failure; J44.1 Chronic obstructive pulmonary disease with (acute) exacerbation; I48.20 Chronic atrial fibrillation, unspecified; J44.0 Chronic obstructive pulmonary disease with (acute) lower respiratory infection; J45.901 Unspecified asthma with (acute) exacerbation; Q78.0 Osteogenesis imperfecta; E78.5 Hyperlipidemia, unspecified; I11.0 Hypertensive heart disease with heart failure; D64.9 Anemia, unspecified; M41.9 Scoliosis, unspecified; M06.9 Rheumatoid arthritis, unspecified; Z66 Do not resuscitate; Z86.73 Personal history of transient ischemic attack (TIA), and cerebral infarction without residual deficits; Z95.810 Presence of automatic (implantable) cardiac defibrillator; Z98.890 Other specified postprocedural states; Z99.81 Dependence on supplemental oxygen; Z87.891 Personal history of nicotine dependence; Z88.8 Allergy status to other drugs, medicaments and biological substances; Z79.01 Long term (current) use of anticoagulants; Z79.899 Other long term (current) drug therapy; Z79.82 Long term (current) use of aspirin; Z79.51 Long term (current) use of inhaled steroids; Z20.822 Contact with and (suspected) exposure to COVID-19; G14 Postpolio syndrome; Z79.891 Long term (current) use of opiate analgesic
CPT/HCPCS: 36415; 36600; 71045; 80048; 80053; 80162; 82553; 82805; 83735; 83880; 84145; 84484; 85007; 85025; 85027; 85379; 87635; 87804; 93005; 93010; 93306; 94640; 96365; 96375; G0378; J0456; J0692; J1940; J2920; J7050; J7512; J7620; J8499; U0003